=== PATIENT | female | born 1935 | race Caucasian/White ===

== ENCOUNTER 2017-09-07 19:34 | Inpatient (IN) | payer OTHER ==
[2017-09-07 19:44] VITALS: BMI 29.2
--- NOTE | 2017-09-07 20:14 | PDOC ---
History of Present Illness - General History Source: Family (daughter ) Exam Limitations: No Limitations - History of Present Illness Initial Comments: 09/07/17 20:35 The patient is a 82 year old female, accompanied by daughter, with a significant past medical history of HTN and insulin-dependent diabetes who presents to the ED s/p altered mental status since earlier today. Patients daughter reports she visited the patient earlier today and the patient was confused and not acting like herself. As per daughter, the patient is finishing her sentences and is very forgetful. As per daughter, the patient was at her mental baseline yesterday. Daughter states the patients blood sugar level was 582 at 6 pm earlier today, and lowered to 508 an hour later secondary to taking metformin and novolog. Denies headache. Denies chest pain or shortness of breath. Denies nausea, vomiting, or diarrhea. Denies any other symptoms. <Martin Srivastava - Last Filed: 09/08/17 00:41> <Claudine Daily - Last Filed: 09/08/17 02:38> - General Chief Complaint: Altered Mental Status Stated Complaint: SUGAR LEVEL Past History <Martin Srivastava - Last Filed: 09/08/17 00:41> - Past Medical History Anemia: No Asthma: No Cancer: No Cardiac Disorders: No CVA: No COPD: No CHF: No Dementia: No Diabetes: Yes GI Disorders: No Disorders: No HTN: Yes Hypercholesterolemia: No Liver Disease: No Psychiatric Problems: Yes (anxiety) Seizures: No Thyroid Disease: Yes - Surgical History Abdominal Surgery: No Appendectomy: No Cardiac Surgery: No Cholecystectomy: Yes Lung Surgery: No Neurologic Surgery: No Orthopedic Surgery: No - Immunization History Immunization Up to Date: Yes - Suicide/Smoking/Psychosocial Hx Smoking History: Never smoked Have you smoked in the past 12 months: No Information on smoking cessation initiated: No Hx Alcohol Use: No Drug/Substance Use Hx: No Substance Use Type: None <Claudine Daily - Last Filed: 09/08/17 02:38> - Past Medical History Allergies/Adverse Reactions: Allergies Allergy/AdvReac Type Severity Reaction Status Date / Time shellfish derived Allergy Verified 09/07/17 21:25 Home Medications: Ambulatory Orders Aspirin [ASA -] 81 mg PO DAILY 05/22/16 Memantine HCl [Namenda -] 7 mg PO DAILY 05/22/16 Insulin Detemir [Levemir Flextouch] 10 unit SQ HS #1 box 05/25/16 Insulin Detemir [Levemir Flextouch] 20 unit SQ DAILY #1 box 05/25/16 Amoxicillin - [Amoxicillin 875mg Tablet -] 875 mg PO BID 08/17/17 Aspirin [Aspirin EC] 81 mg PO DAILY 08/17/17 Azilsartan Medoxomil [Edarbi] 80 mg PO DAILY 08/17/17 Donepezil HCl [Aricept -] 5 mg PO DAILY 08/17/17 Fluticasone Prop 0.05% Nasal [Flonase -] 1 puff IN BID 08/17/17 Insulin Aspart [Novolog Flexpen] 35 units SCJ DAILY 08/17/17 Linaclotide [Linzess] 145 mcg PO DAILY 08/17/17 Liraglutide [Victoza -] 1.8 mg SQ DAILY@0700 08/17/17 Loratadine [Claritin] 10 mg PO DAILY 08/17/17 Memantine HCl/Donepezil HCl [Namzaric 14 mg-10 mg Capsule] 1 tab PO DAILY Metformin HCl 500 mg PO BID 08/17/17 Review of Systems - Review of Systems Able to Perform ROS?: Yes Comments:: 09/07/17 20:35 CONSTITUTIONAL: No reported: Fever, Chills, Diaphoresis, Generalized Weakness, Malaise, Loss of Appetite HEENT: No reported: Rhinorrhea, Nasal Congestion, Throat Pain, Throat Swelling, Difficulty Swallowing, Mouth Swelling, Ear Pain, Eye Pain, Visual Changes CARDIOVASCULAR: No reported: Chest Pain, Syncope, Palpitations, Irregular Heart Rate, Lightheadedness, Peripheral Edema RESPIRATORY: No reported: Cough, Shortness of Breath, SOB with Exertion, Orthopnea, Wheezing , Stridor, Hemoptysis GASTROINTESTINAL: No reported: Abdominal pain, Abdominal Distension, Nausea, Vomiting, Diarrhea, Constipation, Melena, Hematochezia GENITOURINARY: No reported: Dysuria, Frequency, Urgency, Hesitancy, Flank Pain, Genital Pain MUSCULOSKELETAL: No reported: Myalgia, Arthralgia, Joint Swelling, Back pain, Neck Pain SKIN: No reported: Rash, Itching, Pallor HEMEATOLOGIC/IMMUNOLOGIC: No reported: Easy Bleeding, Easy Bruising, Lymphadenopathy, Frequent infections ENDOCRINE: No reported: Unexplained Weight Gain, Unexplained Weight Loss, Heat Intolerance , Cold Intolerance NEUROLOGIC: + altered mental status No reported: Headache, Focal Weakness, Paresthesias, Vertigo, Lightheadedness, Unsteady Gait, Seizure, Incontinence PSYCHIATRIC: No reported: Anxiety, Depression All Other Systems: Reviewed and Negative <CarolaSheldontom - Last Filed: 09/08/17 00:41> *Physical Exam - Vital Signs Last Vital Signs Temp Pulse Resp BP Pulse Ox 99.5 F 102 H 20 184/106 98 09/07/17 19:38 09/07/17 19:38 09/07/17 19:38 09/07/17 19:38 09/07/17 19:38 - Physical Exam Comments: 09/07/17 20:36 GENERAL: Well developed, well nourished. Awake and alert. No acute distress. HEENT: Normocephalic, atraumatic. PERRLA, EOMI. No conjunctival pallor. Sclera are non- icteric. Moist mucous membranes. Oropharynx is clear. NECK: Supple. Full ROM. No JVD. Carotid pulses 2+ and symmetric, without bruits. No thyromegaly. No lymphadenopathy. CARDIOVASCULAR: Regular rate and rhythm. No murmurs, rubs, or gallops. Distal pulses are 2+ and symmetric. PULMONARY: No evidence of respiratory distress. Lungs clear to auscultation bilaterally. No wheezing, rales or rhonchi. ABDOMINAL: Soft. Non-tender. Non-distended. No rebound or guarding. No organomegaly. Normoactive bowel sounds. MUSCULOSKELETAL Normal range of motion at all joints. No bony deformities or tenderness. No CVA tenderness. EXTREMITIES: No cyanosis. No clubbing. No edema. No calf tenderness. SKIN: Warm and dry. Normal capillary refill. No rashes. No jaundice. NEUROLOGICAL: + Confused, altered mental status, no gross focal neuro deficits, no facial droop, no extremity weakness. Cranial nerves 2-12 intact. No deficits to light touch and temperature in face, upper extremities and lower extremities. No motor deficits in the in face, upper extremities and lower extremities. Normoreflexic in the upper and lower extremities. Normal speech. Toes are down-going bilaterally. Gait is normal without ataxia. PSYCHIATRIC: Cooperative. Good eye contact. Appropriate mood and affect. <Martin Srivastava - Last Filed: 09/08/17 00:41> - Vital Signs Last Vital Signs Temp Pulse Resp BP Pulse Ox 99.5 F 102 H 20 184/106 98 09/07/17 19:38 09/07/17 19:38 09/07/17 19:38 09/07/17 19:38 09/07/17 19:38 <Claudine Daily - Last Filed: 09/08/17 02:38> ED Treatment Course - LABORATORY CBC & Chemistry Diagram: 09/07/17 20:20 09/07/17 20:20 - ADDITIONAL ORDERS Additional order review: 09/07/17 20:20 RBC 4.32 MCV 84.0 MCHC 35.0 RDW 13.7 MPV 7.5 Neutrophils % 59.8 D Lymphocytes % 32.6 D Monocytes % 6.3 Eosinophils % 0.7 D Basophils % 0.6 - RADIOLOGY Radiograph Interpretation: 09/08/17 00:43 EXAM: CT HEAD WITHOUT CONTRAST IMPRESSION: No acute brain parenchymal abnormality. No hemorrhage, mass or acute territorial infarct. Age-related involutional changes and minimal chronic small vessel ischemic changes. Clear visualized paranasal sinuses. Visualized mastoid air cells clear. Reported by: Imaging prosthodontist <Martin Srivastava - Last Filed: 09/08/17 00:41> - LABORATORY CBC & Chemistry Diagram: 09/07/17 20:20 09/07/17 20:20 <Claudine Daily - Last Filed: 09/08/17 02:38> *DC/Admit/Observation/Transfer - Attestations Scribe Attestion: 09/07/17 20:36 Documentation prepared by Martin Srivastava, acting as medical receptionist assistant for Claudine Daily MD <Martin Srivastava - Last Filed: 09/08/17 00:41> - Discharge Dispostion Admit: Yes <Claudine Daily - Last Filed: 09/08/17 02:38> Diagnosis at time of Disposition: Hyponatremia HTN (hypertension) Qualifiers: Hypertension type: essential hypertension Qualified Code(s): I10 - Essential ( primary) hypertension TIA (transient ischemic attack) Qualifiers: Transient cerebral ischemia type: unspecified Qualified Code(s): G45.9 - Transient cerebral ischemic attack, unspecified Uncontrolled diabetes mellitus Qualifiers: Diabetes mellitus type: type 1 Diabetes mellitus complication status: with hyperglycemia Qualified Code(s): E10.65 - Type 1 diabetes mellitus with hyperglycemia NIH Stroke Scale - Last Known Well Date/Time & Onset Date Last Known Well: 09/07/17 Time Last Known Well: 12:30 - Initial Evaluation Level of consciousness: Alert Ask patient the month and their age: Both incorrect Ask patient to open & close eyes; make fist and let go: Obeys one correctly Best gaze (horizontal eye movement): Normal Visual field testing: No visual field loss Facial paresis (Show teeth/raise eyebrows/close eyes tight): Normal symmetrical movement Motor Function: Left Arm: Normal Motor Function: Right Arm: Normal (extends arm 90 (or 45) degrees for 10 seconds without drift Motor Function: Left Leg: Normal (extends leg 30 degrees for 5 seconds without drift) Motor Function: Right Leg: Normal (extends leg 30 degrees for 5 seconds without drift) Limb Ataxia: No ataxia Sensory(Use pinprick test arms,legs,trunk,face/side to side): Normal Best language (Describe picture, name items, read sentences): No Aphasia Dysarthria (read several words): Normal articulation Extinction and Inattention: No abnormality - Total Score NIH Stroke Scale Score: 3 <Claudine Daily - Last Filed: 09/08/17 02:38> tPA Exclusion checklist 3-4.5h - Time Elapsed Date last known well: 09/06/17 Time last known well: 12:00 Elaspsed time: 1 Day(s) and 14 Hour(s) and 37 Minutes - Thrombolytic Therapy Candidate Is patient eligible for thrombolytic therapy: No - Exclusion Criteria 3-4.5 hr SBP greater than 185 or DBP greater than 110mmHg despite tx: No Recent IC/spinal surgery,head trauma or stroke<3mos.: No Hx IC hemorrhage, IC neoplasm, AV malformation or aneurysm: No Active internal bleeding: No Blding diathesis(low plt ct, inc PTT,INR>1.7 or use of NOAC): No Symptoms suggest subarachnoid hemorrhage: No CT demonstrates multilobar infarct(>1/3 cerebral hemiphere): No Arterial puncture at noncompressible site in previous 7 days: No Blood glucose concentration less than 50mg/dL (2.7mmol/L): No - Relative Exclusion Criteria 3-4.5 hr Life expectancy <1 yr or severe co-morbid illness: No : No Patient/family refused: No Rapid improvement: No Stroke severity too mild: Yes Recent acute IA (w/in previous 3 months): No Seizure at onset with postictal residual neuro impairments: No Major surgery or serious trauma w/in previous 14 days: No Recent GI or hemorrhage (w/in previous 21 days): No - Add'l Relative Exclusion 3-4.5 hr Age > 80: Yes Hx of both diabetes AND prior ischemic stroke: No Taking an oral anticoagulant regardless of INR: No NIHSS >25: No - Ineligibility reason(s) Reasons No tPA given: Outside of window - delayed arrival (pt NIHSS is only 3, pt has dementia and the last time she was at baseline> 24 hours ago) <Claudine Daily - Last Filed: 09/08/17 02:38>
[2017-09-07] MEDS ORDERED: SODIUM CHLORIDE 0.9% 1000 ML INFUS.BAG IV PRN (20:20)
[2017-09-07 20:29] LABS: BASOPHIL 0.6 % (0-2.0); EOSINOPHIL 0.7 % (0-4.5); MCH 29.4 pg (25.7-33.7); MEAN PLT VOLUME 7.5 fl (7.5-11.1); NEUTROPHILS 59.8 % (42.8-82.8); PLATELET COUNT 272 K/MM3 (134-434); RDW 13.7 % (11.6-15.6)
[2017-09-07 20:37] LABS: INR 0.97 (0.82-1.09)
[2017-09-07 20:39] LABS: ACTIVATED PTT 27.7 SECONDS (26.9-34.4)
[2017-09-07 20:49] LABS: ALBUMIN 3.4 g/dl (3.4-5.0); ANION GAP 12 (8-16); BILIRUBIN,TOTAL 0.3 mg/dL (0.2-1.0); CO2 23 mmol/L (21-32); CREATININE 1.1 mg/dL (0.55-1.02); SGOT/AST 20 U/L (15-37); SGPT/ALT 38 U/L (12-78); TOT PROT 8.2 g/dl (6.4-8.2)
[2017-09-07 20:51] LABS: ALK PHOS 108 U/L (45-117); CPK 169 IU/L (26-192); TROPONIN I 0.03 ng/ml (0.00-0.05)
[2017-09-07 20:58] LABS: GLUCOSE,RANDOM 433 mg/dL (74-106)
[2017-09-07 21:02] LABS: VENOUS BLOOD GAS HCO3 25.5 meq/L (19-25); VENOUS PH 7.43 (7.32-7.42)
[2017-09-07 21:04] LABS: URINE APPEARANCE CLEAR; URINE BILIRUBIN NEGATIVE (NEGATIVE); URINE BLOOD 1+ (NEGATIVE); URINE COLOR STRAW; URINE GLUCOSE (UA) 3+ (NEGATIVE); URINE KETONE NEGATIVE (NEGATIVE); URINE NITRITE NEGATIVE (NEGATIVE); URINE UROBILINOGEN NEGATIVE mg/dL (0.2-1.0)
[2017-09-07 21:06] LABS: URINE PROTEIN 2+ (NEGATIVE)
[2017-09-07 21:08] LABS: URINE RBC <1 /hpf (0-3); URINE WBC 1 /hpf (3-5)
[2017-09-07] MEDS ORDERED: ACETAMINOPHEN 325 MG TABLET (FP) PO ONE (21:11)
[2017-09-07] MEDS ORDERED: ACETAMINOPHEN 325 MG TABLET (FP) ONE (21:12)
[2017-09-07] MEDS: SODIUM CHLORIDE 1,000 ML IV SCH (21:44)
[2017-09-07 22:28] LABS: URINE LEUK ESTERASE Negative (NEGATIVE)
[2017-09-08] MEDS ORDERED: amLODIPine BESYLATE 10 MG TABLET (FP) PO ONE (00:10)
[2017-09-08] MEDS ORDERED: amLODIPine BESYLATE 5 MG TABLET (FP) ONE (00:17)
[2017-09-08] MEDS ORDERED: INSULIN REGULAR HUMAN 100 UNITS/ML *VIAL SQ STA (00:57)
[2017-09-08] MEDS ORDERED: INSULIN REGULAR HUMAN 100 UNITS/ML *VIAL ONE (01:31)
[2017-09-08] MEDS ORDERED: ZOLPIDEM TARTRATE 5 MG TABLET PO ONE (02:09)
[2017-09-08] MEDS ORDERED: ZOLPIDEM TARTRATE 5 MG TABLET ONE (02:25)
[2017-09-08] MEDS ORDERED: ASPIRIN 81 MG CHEWABLE TABLETS PO ONE (02:39)
[2017-09-08] MEDS ORDERED: ASPIRIN 81 MG CHEWABLE TABLETS ONE (02:57)
[2017-09-08] MEDS ORDERED: ASPIRIN COATED 81 MG TABLET.EC ONE (02:59)
[2017-09-08] MEDS ORDERED: SODIUM CHLORIDE 1,000 ML IV SCH (03:00)
[2017-09-08] MEDS ORDERED: INSULIN DETEMIR 100 UNITS/ML MDV SQ SCH (07:00)
[2017-09-08] MEDS ORDERED: INSULIN (NOVOLOG) ASPART 100 UNITS/ML 10ML VIAL SQ SCH (07:00)
[2017-09-08] MEDS ORDERED: INSULIN (NOVOLOG) ASPART 100 UNITS/ML 10ML VIAL ONE (07:07)
[2017-09-08] MEDS ORDERED: INSULIN DETEMIR 100 UNITS/ML MDV SQ ONE (07:07)
[2017-09-08] MEDS: LIRAGLUTIDE 0.6 MG/0.1 ML PEN.INJCTR SQ SCH (08:17)
--- NOTE | 2017-09-08 09:59 | EKG ---
Test Reason : Blood Pressure : / mmHG Vent. Rate : 093 BPM Atrial Rate : 093 BPM P-R Int : 164 ms QRS Dur : 086 ms QT Int : 358 ms P-R-T Axes : 052 -12 052 degrees QTc Int : 445 ms NORMAL SINUS RHYTHM VOLTAGE CRITERIA FOR LEFT VENTRICULAR HYPERTROPHY NONSPECIFIC T WAVE ABNORMALITY ABNORMAL ECG WHEN COMPARED WITH ECG OF 17-AUG-2017 12:25, NO SIGNIFICANT CHANGE WAS FOUND Confirmed by ТАТЬЯНА MAURO MD ([id number]) on 09/08/2017 9:59:05 AM Referred By: Confirmed By:ТАТЬЯНА MAURO MD
[2017-09-08] MEDS ORDERED: PATIENT'S OWN MEDICATION (NON-FORMULARY) (Linaclotide [Linzess] 145 MCG) PO SCH (10:00)
[2017-09-08] MEDS ORDERED: PATIENT'S OWN MEDICATION (NON-FORMULARY) (Azilsartan Medoxomil [Edarbi] 80 MG) PO SCH (10:00)
[2017-09-08] MEDS ORDERED: NAMENDA 7 MG PO SCH (10:00)
[2017-09-08] MEDS: HEPARIN NA (PORCINE) 5,000 UNITS/ML 1ML VIAL SQ SCH ×2 (10:56→21:49)
[2017-09-08] MEDS: DONEPEZIL HCL 5 MG TABLET (FP) PO SCH (10:56)
[2017-09-08] MEDS: ASPIRIN COATED 81 MG TABLET.EC PO SCH (10:56)
[2017-09-08] MEDS: LORATADINE 10 MG TABLET PO SCH (10:56)
--- NOTE | 2017-09-08 12:11 | CONSULT ---
Consult - text type - Consultation Consultation Note: Neurology History of Present Illness The patient is a 82 year old female, with a significant past medical history of HTN and insulin-dependent diabetes who presents to the ED s/p altered mental status. Patients daughter reports she visited the patient the day of admission and the patient was confused and not acting like herself. As per daughter, the patient is finishing her sentences and is very forgetful. Daughter states the patients blood sugar level was 582 and lowered to 508 an hour later secondary to taking metformin and novolog. Denies headache. Denies chest pain or shortness of breath. Denies nausea, vomiting, or diarrhea. Denies any other symptoms. CT head completed and did not show acute changes. Unsure of patient' s baseline cognitive ability, but she was comfortable in the emergency room and interactive. She was calm and cooperative. - General Chief Complaint: Altered Mental Status Stated Complaint: SUGAR LEVEL Past History - Past Medical History Anemia: No Asthma: No Cancer: No Cardiac Disorders: No CVA: No COPD: No CHF: No Dementia: No Diabetes: Yes GI Disorders: No Disorders: No HTN: Yes Hypercholesterolemia: No Liver Disease: No Psychiatric Problems: Yes (anxiety) Seizures: No Thyroid Disease: Yes - Surgical History Abdominal Surgery: No Appendectomy: No Cardiac Surgery: No Cholecystectomy: Yes Lung Surgery: No Neurologic Surgery: No Orthopedic Surgery: No - Immunization History Immunization Up to Date: Yes - Suicide/Smoking/Psychosocial Hx Smoking History: Never smoked Have you smoked in the past 12 months: No Information on smoking cessation initiated: No Hx Alcohol Use: No Drug/Substance Use Hx: No Substance Use Type: None - Past Medical History Allergies/Adverse Reactions: Allergies Allergy/AdvReac Type Severity Reaction Status Date / Time shellfish derived Allergy Verified 09/07/17 21:25 Home Medications: Ambulatory Orders Aspirin [ASA -] 81 mg PO DAILY 05/22/16 Memantine HCl [Namenda -] 7 mg PO DAILY 05/22/16 Insulin Detemir [Levemir Flextouch] 10 unit SQ HS #1 box 05/25/16 Insulin Detemir [Levemir Flextouch] 20 unit SQ DAILY #1 box 05/25/16 Amoxicillin - [Amoxicillin 875mg Tablet -] 875 mg PO BID 08/17/17 Aspirin [Aspirin EC] 81 mg PO DAILY 08/17/17 Azilsartan Medoxomil [Edarbi] 80 mg PO DAILY 08/17/17 Donepezil HCl [Aricept -] 5 mg PO DAILY 08/17/17 Fluticasone Prop 0.05% Nasal [Flonase -] 1 puff IN BID 08/17/17 Insulin Aspart [Novolog Flexpen] 35 units SCJ DAILY 08/17/17 Linaclotide [Linzess] 145 mcg PO DAILY 08/17/17 Liraglutide [Victoza -] 1.8 mg SQ DAILY@0700 08/17/17 Loratadine [Claritin] 10 mg PO DAILY 08/17/17 Memantine HCl/Donepezil HCl [Namzaric 14 mg-10 mg Capsule] 1 tab PO DAILY Metformin HCl 500 mg PO BID 08/17/17 Review of Systems CONSTITUTIONAL: No reported: Fever, Chills, Diaphoresis, Generalized Weakness, Malaise, Loss of Appetite HEENT: No reported: Rhinorrhea, Nasal Congestion, Throat Pain, Throat Swelling, Difficulty Swallowing, Mouth Swelling, Ear Pain, Eye Pain, Visual Changes CARDIOVASCULAR: No reported: Chest Pain, Syncope, Palpitations, Irregular Heart Rate, Lightheadedness, Peripheral Edema RESPIRATORY: No reported: Cough, Shortness of Breath, SOB with Exertion, Orthopnea, Wheezing , Stridor, Hemoptysis GASTROINTESTINAL: No reported: Abdominal pain, Abdominal Distension, Nausea, Vomiting, Diarrhea, Constipation, Melena, Hematochezia GENITOURINARY: No reported: Dysuria, Frequency, Urgency, Hesitancy, Flank Pain, Genital Pain MUSCULOSKELETAL: No reported: Myalgia, Arthralgia, Joint Swelling, Back pain, Neck Pain SKIN: No reported: Rash, Itching, Pallor HEMEATOLOGIC/IMMUNOLOGIC: No reported: Easy Bleeding, Easy Bruising, Lymphadenopathy, Frequent infections ENDOCRINE: No reported: Unexplained Weight Gain, Unexplained Weight Loss, Heat Intolerance , Cold Intolerance NEUROLOGIC: + altered mental status No reported: Headache, Focal Weakness, Paresthesias, Vertigo, Lightheadedness, Unsteady Gait, Seizure, Incontinence PSYCHIATRIC: No reported: Anxiety, Depression *Physical Exam Vital Signs Temperature 98.6 F 09/08/17 06:56 Pulse Rate 80 09/08/17 10:57 Respiratory Rate 16 09/08/17 10:57 Blood Pressure 158/85 09/08/17 10:57 O2 Sat by Pulse Oximetry (%) 100 09/08/17 11:10 GENERAL: Well developed, well nourished. Awake and alert. No acute distress. HEENT: Normocephalic, atraumatic. PERRLA, EOMI. No conjunctival pallor. Sclera are non- icteric. Moist mucous membranes. Oropharynx is clear. NECK: Supple. Full ROM. No JVD. Carotid pulses 2+ and symmetric, without bruits. No thyromegaly. No lymphadenopathy. CARDIOVASCULAR: Regular rate and rhythm. No murmurs, rubs, or gallops. Distal pulses are 2+ and symmetric. PULMONARY: No evidence of respiratory distress. Lungs clear to auscultation bilaterally. No wheezing, rales or rhonchi. ABDOMINAL: Soft. Non-tender. Non-distended. No rebound or guarding. No organomegaly. Normoactive bowel sounds. MUSCULOSKELETAL Normal range of motion at all joints. No bony deformities or tenderness. No CVA tenderness. EXTREMITIES: No cyanosis. No clubbing. No edema. No calf tenderness. SKIN: Warm and dry. Normal capillary refill. No rashes. No jaundice. NEUROLOGICAL: + Confused, altered mental status, no gross focal neuro deficits, no facial droop, no extremity weakness. Cranial nerves 2-12 intact. No deficits to light touch and temperature in face, upper extremities and lower extremities. No motor deficits in the in face, upper extremities and lower extremities. Normoreflexic in the upper and lower extremities. Normal speech. Toes are down-going bilaterally. Gait is normal without ataxia. PSYCHIATRIC: Cooperative. Good eye contact. Appropriate mood and affect. CBCD WBC 8.0 K/mm3 (4.0-10.0) D 09/07/17 20:20 RBC 4.32 M/mm3 (3.60-5.2) 09/07/17 20:20 Hgb 12.7 GM/dL (10.7-15.3) 09/07/17 20:20 Hct 36.3 % (32.4-45.2) 09/07/17 20:20 MCV 84.0 fl (80-96) 09/07/17 20:20 MCHC 35.0 g/dl (32.0-36.0) 09/07/17 20:20 RDW 13.7 % (11.6-15.6) 09/07/17 20:20 Plt Count 272 K/MM3 (134-434) 09/07/17 20:20 MPV 7.5 fl (7.5-11.1) 09/07/17 20:20 CMP Sodium 127 mmol/L (136-145) L 09/07/17 20:20 Potassium 4.3 mmol/L (3.5-5.1) 09/07/17 20:20 Chloride 92 mmol/L (98-107) L 09/07/17 20:20 Carbon Dioxide 23 mmol/L (21-32) D 09/07/17 20:20 Anion Gap 12 (8-16) 09/07/17 20:20 BUN 25 mg/dL (7-18) H 09/07/17 20:20 Creatinine 1.1 mg/dL (0.55-1.02) H 09/07/17 20:20 Creat Clearance w eGFR 47.67 (>60) 09/07/17 20:20 Calcium 9.0 mg/dL (8.5-10.1) 09/07/17 20:20 Total Bilirubin 0.3 mg/dL (0.2-1.0) D 09/07/17 20:20 AST 20 U/L (15-37) D 09/07/17 20:20 ALT 38 U/L (12-78) 09/07/17 20:20 Alkaline Phosphatase 108 U/L (45-117) 09/07/17 20:20 Total Protein 8.2 g/dl (6.4-8.2) 09/07/17 20:20 Albumin 3.4 g/dl (3.4-5.0) 09/07/17 20:20 - RADIOLOGY Radiograph Interpretation: EXAM: CT HEAD WITHOUT CONTRAST IMPRESSION: No acute brain parenchymal abnormality. No hemorrhage, mass or acute territorial infarct. Age-related involutional changes and minimal chronic small vessel ischemic changes. Clear visualized paranasal sinuses. Visualized mastoid air cells clear. Reported by: Imaging production stage manager Plan: 82 year old female, with a significant past medical history of HTN and insulin- dependent diabetes who presents to the ED s/p altered mental status. Patients daughter reports she visited the patient the day of admission and the patient was confused and not acting like herself. As per daughter, the patient is finishing her sentences and is very forgetful. Daughter states the patients blood sugar level was 582 and lowered to 508 an hour later secondary to taking metformin and novolog. Denies headache. Denies chest pain or shortness of breath. Denies nausea, vomiting, or diarrhea. Denies any other symptoms. CT head completed and did not show acute changes. Unsure of patient's baseline cognitive ability, but she was comfortable in the emergency room and interactive. She was calm and cooperative. possibly toxic metabolic encephalopathy, monitor electrolytes. Continue IV/by mouth hydration. Close monitoring of glucose and treatment of hyperglycemia. unclear if patient was noncompliant of her glucose medications. Can continue Namziric and dementia medications as well. Frequent reorientation suggested. Blood pressure control goal range less than 140/90. Follow-up cardiology recommendations.
[2017-09-08] MEDS: SODIUM CHLORIDE 1,000 ML IV SCH ×2 (16:28→21:39)
--- NOTE | 2017-09-08 17:02 | HP ---
Admitting History and Physical - Primary Care Physician PCP: Agueda Lee - Admission Chief Complaint: ALTERED MENTAL STATUS CHANGE RULE OUT CVA/HYPERGLYCEMIA History of Present Illness: The patient is a 82 year old female, accompanied by daughter, with a significant past medical history of HTN and insulin-dependent diabetes who presents to the ED s/p altered mental status since earlier today. Patients daughter reports she visited the patient earlier today and the patient was confused and not acting like herself. As per daughter, the patient is finishing her sentences and is very forgetful. As per daughter, the patient was at her mental baseline yesterday. Daughter states the patients blood sugar level was 582 at 6 pm earlier today, and lowered to 508 an hour later secondary to taking metformin and novolog. Denies headache. Denies chest pain or shortness of breath. Denies nausea, vomiting, or diarrhea. Denies any other symptoms. 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, Other (cataract) Cardiovascular: Yes: HTN Gastrointestinal: Yes: GERD Psych: Yes: Anxiety Endocrine: Yes: Diabetes Mellitus - Smoking History Smoking history: Never smoked Have you smoked in the past 12 months: No - Alcohol/Substance Use Hx Alcohol Use: No History of Substance Use: reports: None Home Medications - Allergies Allergies/Adverse Reactions: Allergies Allergy/AdvReac Type Severity Reaction Status Date / Time shellfish derived Allergy Verified 09/07/17 21:25 - Home Medications Home Medications: Ambulatory Orders Aspirin [ASA -] 81 mg PO DAILY 05/22/16 Memantine HCl [Namenda -] 7 mg PO DAILY 05/22/16 Insulin Detemir [Levemir Flextouch] 10 unit SQ HS #1 box 05/25/16 Insulin Detemir [Levemir Flextouch] 20 unit SQ DAILY #1 box 05/25/16 Amoxicillin - [Amoxicillin 875mg Tablet -] 875 mg PO BID 08/17/17 Aspirin [Aspirin EC] 81 mg PO DAILY 08/17/17 Azilsartan Medoxomil [Edarbi] 80 mg PO DAILY 08/17/17 Donepezil HCl [Aricept -] 5 mg PO DAILY 08/17/17 Fluticasone Prop 0.05% Nasal [Flonase -] 1 puff IN BID 08/17/17 Insulin Aspart [Novolog Flexpen] 35 units SCJ DAILY 08/17/17 Linaclotide [Linzess] 145 mcg PO DAILY 08/17/17 Liraglutide [Victoza -] 1.8 mg SQ DAILY@0700 08/17/17 Loratadine [Claritin] 10 mg PO DAILY 08/17/17 Memantine HCl/Donepezil HCl [Namzaric 14 mg-10 mg Capsule] 1 tab PO DAILY Metformin HCl 500 mg PO BID 08/17/17 Review of Systems - Review of Systems Constitutional: reports: Loss of Appetite, Weakness Eyes: reports: No Symptoms HENT: reports: No Symptoms (TWITCHING), Other Neck: reports: No Symptoms Cardiovascular: reports: No Symptoms Respiratory: reports: No Symptoms Gastrointestinal: reports: No Symptoms Genitourinary: reports: No Symptoms Musculoskeletal: reports: Muscle Weakness Integumentary: reports: No Symptoms Neurological: reports: Confusion, Parasthesia, Pre-Existing Deficit, Unsteady Gait, Other Endocrine: reports: No Symptoms Hematology/Lymphatic: reports: No Symptoms Psychiatric: reports: Anxiety, Other Physical Examination Vital Signs: Vital Signs Temperature 99.1 F 09/08/17 13:35 Pulse Rate 75 09/08/17 13:56 Respiratory Rate 17 09/08/17 13:56 Blood Pressure 150/60 09/08/17 13:56 O2 Sat by Pulse Oximetry (%) 99 09/08/17 13:56 Constitutional: Yes: Mild Distress Eyes: Yes: WNL HENT: Yes: Other (FACIAL TWITCH) Neck: Yes: WNL Cardiovascular: Yes: WNL Respiratory: Yes: WNL Gastrointestinal: Yes: WNL Renal/: Yes: WNL Musculoskeletal: Yes: Muscle Weakness Extremities: Yes: WNL Edema: No Peripheral Pulses WNL: Yes Integumentary: Yes: WNL Wound/Incision: Yes: Other Neurological: Yes: Facial Droop, Pre-Existing Deficit, Weakness ...Motor Strength: LLE, RLE Psychiatric: Yes: Other Imaging - Results Cat Scan: Report Reviewed Problem List - Problems (1) Anxiety Code(s): F41.9 - ANXIETY DISORDER, UNSPECIFIED (2) HTN (hypertension) Code(s): I10 - ESSENTIAL (PRIMARY) HYPERTENSION Qualifiers: Hypertension type: essential hypertension Qualified Code(s): I10 - Essential (primary) hypertension; I10 - Essential (primary) hypertension; I10 - Essential (primary) hypertension (3) Hyperglycemia Code(s): R73.9 - HYPERGLYCEMIA, UNSPECIFIED (4) Syncope Code(s): R55 - SYNCOPE AND COLLAPSE (5) TIA (transient ischemic attack) Code(s): G45.9 - TRANSIENT CEREBRAL ISCHEMIC ATTACK, UNSPECIFIED Qualifiers: Transient cerebral ischemia type: unspecified Qualified Code(s): G45.9 - Transient cerebral ischemic attack, unspecified; G45.9 - Transient cerebral ischemic attack, unspecified; G45.9 - Transient cerebral ischemic attack, unspecified (6) Uncontrolled diabetes mellitus Code(s): E11.65 - TYPE 2 DIABETES MELLITUS WITH HYPERGLYCEMIA Qualifiers: Diabetes mellitus type: type 1 Diabetes mellitus complication status: with hyperglycemia Qualified Code(s): E10.65 - Type 1 diabetes mellitus with hyperglycemia; E10.65 - Type 1 diabetes mellitus with hyperglycemia; E10.65 - Type 1 diabetes mellitus with hyperglycemia; E10.65 - Type 1 diabetes mellitus with hyperglycemia (7) Diabetes mellitus Code(s): E11.9 - TYPE 2 DIABETES MELLITUS WITHOUT COMPLICATIONS (8) Lightheadedness Code(s): R42 - DIZZINESS AND GIDDINESS Assessment/Plan MRI BRAIN PENDING TARDIVE DEYSKINESIA PSYCH AND NEURO EVAL ENDOCRINE CONSULT SSI ADA BGM AC/HS OOB TO CHAIR PT [facility] FOR [facility]
[2017-09-08 18:41] LABS: ANION GAP 7 (8-16); CALCIUM 8.8 mg/dL (8.5-10.1); CO2 30 mmol/L (21-32); CREATININE 0.8 mg/dL (0.55-1.02); GLUCOSE,RANDOM 143 mg/dL (74-106)
[2017-09-08] MEDS ORDERED: hydrOXYzine HCL 25 MG TABLET (FP) PO ONE (21:15)
[2017-09-08] MEDS ORDERED: VALSARTAN 160 MG TABLET (UD) PO ONE (21:15)
[2017-09-08] MEDS: INSULIN DETEMIR 100 UNITS/ML MDV SQ SCH (21:42)
--- NOTE | 2017-09-09 00:06 | CONSULT ---
Consult Consult Specialty:: endocrine Referred by:: dr mercy byrd Reason for Consultation:: diabetes mellitus - History of Present Illness Chief Complaint: weakness high sugar History of Present Illness: 82 year old female, with a significant past medical history of HTN and insulin- dependent diabetes who presents to the ED s/p altered mental status. Patients daughter reports she visited the patient the day of admission and the patient was confused and not acting like herself. As per daughter, the patient is finishing her sentences and is very forgetful. 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, Other (cataract) Cardio/Vascular: Yes: HTN Gastrointestinal: Yes: GERD Psych: Yes: Anxiety Endocrine: Yes: Diabetes Mellitus - Alcohol/Substance Use Hx Alcohol Use: No History of Substance Use: reports: None - Smoking History Smoking history: Never smoked Have you smoked in the past 12 months: No - Social History Usual Living Arrangement: Alone Home Medications - Allergies Allergies/Adverse Reactions: Allergies Allergy/AdvReac Type Severity Reaction Status Date / Time shellfish derived Allergy Verified 09/07/17 21:25 - Home Medications Home Medications: Ambulatory Orders Aspirin [ASA -] 81 mg PO DAILY 05/22/16 Memantine HCl [Namenda -] 7 mg PO DAILY 05/22/16 Insulin Detemir [Levemir Flextouch] 10 unit SQ HS #1 box 05/25/16 Insulin Detemir [Levemir Flextouch] 20 unit SQ DAILY #1 box 05/25/16 Amoxicillin - [Amoxicillin 875mg Tablet -] 875 mg PO BID 08/17/17 Aspirin [Aspirin EC] 81 mg PO DAILY 08/17/17 Azilsartan Medoxomil [Edarbi] 80 mg PO DAILY 08/17/17 Donepezil HCl [Aricept -] 5 mg PO DAILY 08/17/17 Fluticasone Prop 0.05% Nasal [Flonase -] 1 puff IN BID 08/17/17 Insulin Aspart [Novolog Flexpen] 35 units SCJ DAILY 08/17/17 Linaclotide [Linzess] 145 mcg PO DAILY 08/17/17 Liraglutide [Victoza -] 1.8 mg SQ DAILY@0700 08/17/17 Loratadine [Claritin] 10 mg PO DAILY 08/17/17 Memantine HCl/Donepezil HCl [Namzaric 14 mg-10 mg Capsule] 1 tab PO DAILY Metformin HCl 500 mg PO BID 08/17/17 Review of Systems - Review of Systems Constitutional: reports: Lethargy Eyes: reports: Blurred Vision HENT: reports: No Symptoms Neck: reports: No Symptoms Cardiovascular: reports: No Symptoms Respiratory: reports: No Symptoms Gastrointestinal: reports: No Symptoms Neurological: reports: Weakness Endocrine: reports: No Symptoms Physical Exam Vital Signs: Vital Signs Temperature 98.5 F 09/08/17 21:00 Pulse Rate 84 09/08/17 21:00 Respiratory Rate 18 09/08/17 21:00 Blood Pressure 182/98 09/08/17 21:00 O2 Sat by Pulse Oximetry (%) 97 09/08/17 21:00 Constitutional: Yes: Anxious Eyes: Yes: EOM Intact HENT: Yes: Normocephalic Neck: Yes: Trachea Midline Cardiovascular: Yes: Regular Rate and Rhythm Respiratory: Yes: CTA Bilaterally Gastrointestinal: Yes: Normal Bowel Sounds ...Rectal Exam: Yes: Deferred Renal/: Yes: WNL Breast(s): Yes: WNL Musculoskeletal: Yes: WNL Extremities: Yes: WNL Labs: CBC, BMP 09/08/17 17:50 Problem List - Problems (1) HTN (hypertension) Code(s): I10 - ESSENTIAL (PRIMARY) HYPERTENSION Qualifiers: Hypertension type: essential hypertension Qualified Code(s): I10 - Essential (primary) hypertension; I10 - Essential (primary) hypertension; I10 - Essential (primary) hypertension (2) Hyponatremia Code(s): E87.1 - HYPO-OSMOLALITY AND HYPONATREMIA (3) TIA (transient ischemic attack) Code(s): G45.9 - TRANSIENT CEREBRAL ISCHEMIC ATTACK, UNSPECIFIED Qualifiers: Transient cerebral ischemia type: unspecified Qualified Code(s): G45.9 - Transient cerebral ischemic attack, unspecified; G45.9 - Transient cerebral ischemic attack, unspecified; G45.9 - Transient cerebral ischemic attack, unspecified Assessment/Plan Current Active Problems Anxiety (Acute) HTN (hypertension) (Acute) Hyperglycemia (Acute) Hyponatremia (Acute) Syncope (Acute) TIA (transient ischemic attack) (Acute) Thyroid disease (Acute) Uncontrolled diabetes mellitus (Acute) Abnormal Lab Results 09/08/17 17:50 Sodium 133 L Chloride 96 L Anion Gap 7 L Random Glucose 143 H D Laboratory Results - last 24 hr 09/07/17 09/08/17 09/08/17 20:08 00:55 02:30 Sodium Potassium Chloride Carbon Dioxide Anion Gap BUN Creatinine POC Glucometer > 400 > 400 Random Glucose Lactic Acid 1.0 Calcium 09/08/17 09/08/17 09/08/17 06:00 14:49 17:41 Sodium Potassium Chloride Carbon Dioxide Anion Gap BUN Creatinine POC Glucometer [id number] 153 Random Glucose Lactic Acid 1.0 Calcium 09/08/17 09/08/17 17:50 20:29 Sodium 133 L Potassium 3.8 Chloride 96 L Carbon Dioxide 30 D Anion Gap 7 L BUN 14 D Creatinine 0.8 D POC Glucometer 190 Random Glucose 143 H D Lactic Acid Calcium 8.8 plan: bgm novolog scale coverage levemir 20units am levemir 10 u hs chk hba1c
[2017-09-09] MEDS: INSULIN SLIDING SCALE (NOVOLOG) 1 VIAL SQ SCH ×4 (06:28→22:19)
[2017-09-09] MEDS: INSULIN DETEMIR 100 UNITS/ML MDV SQ SCH ×2 (06:29→22:18)
[2017-09-09] MEDS: LIRAGLUTIDE 0.6 MG/0.1 ML PEN.INJCTR SQ SCH (06:29)
[2017-09-09 07:20] LABS: MCH 28.2 pg (25.7-33.7); MCHC 33.7 g/dl (32.0-36.0); MEAN CELL VOLUME 83.7 fl (80-96); MEAN PLT VOLUME 7.7 fl (7.5-11.1); PLATELET COUNT 264 K/MM3 (134-434); RDW 14.1 % (11.6-15.6); WHITE BLOOD COUNT 6.3 K/mm3 (4.0-10.0)
[2017-09-09 08:01] LABS: ALBUMIN 3.1 g/dl (3.4-5.0); ANION GAP 7 (8-16); CALCIUM 8.5 mg/dL (8.5-10.1); CO2 29 mmol/L (21-32)
[2017-09-09 08:07] LABS: ALK PHOS 93 U/L (45-117); BILIRUBIN,TOTAL 0.5 mg/dL (0.2-1.0); CHOLESTEROL 253 mg/dL (50-200); CREATININE 0.9 mg/dL (0.55-1.02); GLUCOSE,RANDOM 229 mg/dL (74-106); SGOT/AST 28 U/L (15-37); SGPT/ALT 32 U/L (12-78); TOT PROT 7.7 g/dl (6.4-8.2)
--- NOTE | 2017-09-09 09:50 | PN ---
Progress Note (short form) - Note Progress Note: Neurology History of Present Illness The patient is a 82 year old female, with a significant past medical history of HTN and insulin-dependent diabetes who presents to the ED s/p altered mental status. Patients daughter reports she visited the patient the day of admission and the patient was confused and not acting like herself. As per daughter, the patient is finishing her sentences and is very forgetful. Daughter states the patients blood sugar level was 582 and lowered to 508 an hour later secondary to taking metformin and novolog. CT head completed and did not show acute changes. 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 Not TPA candidate as she is out of window. Given distribution, there is concern for embolic phenomenon, though size could also indicate hypertensive. Echo, CD to be checked. When asked if she takes ASA , she reports she takes it occasionally and does not seem to be daily compliant. Instructed her it would be necessary to take daily for CVA prevention. Endo notes also reviewed and Diabetes management ongoing. Active Medications Aspirin (Ecotrin -) 81 mg PO DAILY [facility] Last Admin: 09/08/17 10:56 Dose: 81 mg Donepezil HCl (Aricept -) 5 mg PO DAILY [facility] Last Admin: 09/08/17 10:56 Dose: 5 mg Heparin Sodium (Porcine) (Heparin -) 5,000 unit SQ BID [facility] Last Admin: 09/08/17 21:49 Dose: 5,000 unit Insulin Aspart (Novolog Vial Sliding Scale -) 1 vial SQ ACHS [facility] PRN Reason: Protocol Last Admin: 09/09/17 06:28 Dose: 7 units Insulin Detemir (Levemir Vial) 10 units SQ HS [facility] Last Admin: 09/08/17 21:42 Dose: 10 units Insulin Detemir (Levemir Vial) 35 units SQ ACBK [facility] Last Admin: 09/09/17 06:29 Dose: 35 units Liraglutide (Victoza -) 1.8 mg SQ DAILY@0700 [facility] Last Admin: 09/09/17 06:29 Dose: 1.8 mg Loratadine (Claritin -) 10 mg PO DAILY [facility] Last Admin: 09/08/17 10:56 Dose: 10 mg Non-Formulary Medication (Azilsartan Medoxomil [Edarbi]) 80 mg PO DAILY [facility] Non-Formulary Medication (Linaclotide [Linzess]) 145 mcg PO DAILY [facility] Namenda Xr 7 Mg Tablet - Patient Own Med 7 each PO DAILY [facility] *Physical Exam Vital Signs Temperature 98.1 F 09/09/17 06:00 Pulse Rate 89 09/09/17 06:00 Respiratory Rate 18 09/09/17 06:00 Blood Pressure 156/85 09/09/17 06:00 O2 Sat by Pulse Oximetry (%) 97 09/08/17 21:00 GENERAL: Well developed, well nourished. Awake and alert. No acute distress. HEENT: Normocephalic, atraumatic. PERRLA, EOMI. No conjunctival pallor. Sclera are non- icteric. Moist mucous membranes. Oropharynx is clear. NECK: Supple. Full ROM. No JVD. Carotid pulses 2+ and symmetric, without bruits. No thyromegaly. No lymphadenopathy. CARDIOVASCULAR: Regular rate and rhythm. No murmurs, rubs, or gallops. Distal pulses are 2+ and symmetric. PULMONARY: No evidence of respiratory distress. Lungs clear to auscultation bilaterally. No wheezing, rales or rhonchi. ABDOMINAL: Soft. Non-tender. Non-distended. No rebound or guarding. No organomegaly. Normoactive bowel sounds. MUSCULOSKELETAL Normal range of motion at all joints. No bony deformities or tenderness. No CVA tenderness. EXTREMITIES: No cyanosis. No clubbing. No edema. No calf tenderness. SKIN: Warm and dry. Normal capillary refill. No rashes. No jaundice. NEUROLOGICAL: + Confused, altered mental status, no gross focal neuro deficits, no facial droop, no extremity weakness. Cranial nerves 2-12 intact. No deficits to light touch and temperature in face, upper extremities and lower extremities. No motor deficits in the in face, upper extremities and lower extremities. Normoreflexic in the upper and lower extremities. Normal speech. Toes are down-going bilaterally. Gait is normal without ataxia. PSYCHIATRIC: Cooperative. Good eye contact. Appropriate mood and affect. CBCD WBC 6.3 K/mm3 (4.0-10.0) 09/09/17 05:35 RBC 4.75 M/mm3 (3.60-5.2) 09/09/17 05:35 Hgb 13.4 GM/dL (10.7-15.3) 09/09/17 05:35 Hct 39.8 % (32.4-45.2) 09/09/17 05:35 MCV 83.7 fl (80-96) 09/09/17 05:35 MCHC 33.7 g/dl (32.0-36.0) 09/09/17 05:35 RDW 14.1 % (11.6-15.6) 09/09/17 05:35 Plt Count 264 K/MM3 (134-434) 09/09/17 05:35 MPV 7.7 fl (7.5-11.1) 09/09/17 05:35 CMP Sodium 135 mmol/L (136-145) L 09/09/17 05:35 Potassium 4.1 mmol/L (3.5-5.1) 09/09/17 05:35 Chloride 99 mmol/L (98-107) 09/09/17 05:35 Carbon Dioxide 29 mmol/L (21-32) 09/09/17 05:35 Anion Gap 7 (8-16) L 09/09/17 05:35 BUN 15 mg/dL (7-18) 09/09/17 05:35 Creatinine 0.9 mg/dL (0.55-1.02) 09/09/17 05:35 Creat Clearance w eGFR > 60 (>60) 09/09/17 05:35 Calcium 8.5 mg/dL (8.5-10.1) 09/09/17 05:35 Total Bilirubin 0.5 mg/dL (0.2-1.0) D 09/09/17 05:35 AST 28 U/L (15-37) D 09/09/17 05:35 ALT 32 U/L (12-78) 09/09/17 05:35 Alkaline Phosphatase 93 U/L (45-117) 09/09/17 05:35 Total Protein 7.7 g/dl (6.4-8.2) 09/09/17 05:35 Albumin 3.1 g/dl (3.4-5.0) L 09/09/17 05:35 - RADIOLOGY Radiograph Interpretation: EXAM: CT HEAD WITHOUT CONTRAST IMPRESSION: No acute brain parenchymal abnormality. No hemorrhage, mass or acute territorial infarct. Age-related involutional changes and minimal chronic small vessel ischemic changes. Clear visualized paranasal sinuses. Visualized mastoid air cells clear. 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 Plan: 82 year old female, with a significant past medical history of HTN and insulin- dependent diabetes who presents to the ED s/p altered mental status. Patients daughter reports she visited the patient the day of admission and the patient was confused and not acting like herself. As per daughter, the patient is finishing her sentences and is very forgetful. Daughter states the patients blood sugar level was 582 and lowered to 508 an hour later secondary to taking metformin and novolog. CT head completed and did not show acute changes. 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 Not TPA candidate as she is out of window. Concern for embolic phenomenon, though size could also indicate hypertensive. Echo, CD to be checked. Daily compliance to ASA needed to prevent CVA Endo notes also reviewed and Diabetes management ongoing. Continue IV/by mouth hydration. Close monitoring of glucose and treatment of hyperglycemia. unclear if patient was noncompliant of her glucose medications. Can continue Namziric and dementia medications as well. Blood pressure control goal range less than 160/90. Follow-up cardiology recommendations.
[2017-09-09] MEDS: ASPIRIN COATED 81 MG TABLET.EC PO SCH (10:15)
[2017-09-09] MEDS: LORATADINE 10 MG TABLET PO SCH (10:15)
[2017-09-09] MEDS: DONEPEZIL HCL 5 MG TABLET (FP) PO SCH (10:15)
[2017-09-09] MEDS: HEPARIN NA (PORCINE) 5,000 UNITS/ML 1ML VIAL SQ SCH ×2 (10:15→22:16)
--- NOTE | 2017-09-09 12:08 | CONSULT ---
Admitting History and Physical - Primary Care Physician PCP: Agueda Lee - Admission History of Present Illness: ALTERED MENTAL STATUS CHANGE RULE OUT CVA/HYPERGLYCEMIA Selected Entries 09/07/17 09/08/17 09/08/17 19:38 06:56 13:35 Supper Temperature 99.5 F 98.6 F 99.1 F 09/08/17 09/08/17 09/08/17 16:30 20:03 21:00 Supper 50% Temperature 98.7 F 98.5 F 09/09/17 09/09/17 01:03 06:00 Supper Temperature 98.2 F 98.1 F Laboratory Tests 09/07/17 09/09/17 20:20 05:35 WBC 8.0 D 6.3 MRI-R basal ganglia and L parietal acute to subacute infarcts. 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, Other (cataract) Cardiovascular: Yes: HTN Gastrointestinal: Yes: GERD Psych: Yes: Anxiety Endocrine: Yes: Diabetes Mellitus - Smoking History Smoking history: Never smoked Have you smoked in the past 12 months: No - Alcohol/Substance Use Hx Alcohol Use: No History of Substance Use: reports: None History - Admission Reason For Visit: HTN TIA UNCONTROLLED DIABETES - Diagnostics MRI: Report Reviewed ( R basal ganglia and L parietal acute to subacute infarcts.) - Hearing Hearing: Normal Speech Evaluation - Communication Primary Language: SETSWA[place] - Swallow Evaluation/Bedside Assessment Current Nutritional Intake: Regular, Thin Liquids
--- NOTE | 2017-09-09 12:28 | CONSULT ---
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, Other (cataract) Cardiovascular: Yes: HTN Gastrointestinal: Yes: GERD Psych: Yes: Anxiety Endocrine: Yes: Diabetes Mellitus - Smoking History Smoking history: Never smoked Have you smoked in the past 12 months: No - Alcohol/Substance Use Hx Alcohol Use: No History of Substance Use: reports: None History - Admission Reason For Visit: HTN TIA UNCONTROLLED DIABETES - Hearing Hearing: Normal Speech Evaluation - Communication Primary Language: AZERI Secondary Language: PERSIAN Communication: Yes: Within Normal Limits Oral Expression Ability: Yes: No Impairment - Speech Production Able to Make Needs Known: Yes: WNL Intelligibility: Yes: WNL - Speech Characteristics Voice Loudness: Normal Voice Pitch: Yes: Normal Voice Phonatory-based Quality: Yes: Normal Speech Pattern: Normal Speech Clarity: < 100% Nasal Resonance: Normal Articulation: Yes: Precise - Language/Auditory Comprehension Follows: Yes: 1 Stage Simple Commands Observation: Able to respond to yes/no queries: Yes, Yes/No Confusion: No, Comprehends Conversational Speech: Yes - Language/Verbal Expression Able to Respond to Simple Queries: Yes: WNL Able to Communicate Wants and Needs: Yes: WNL Functional Communication Status: Yes: WNL Attention: Yes: Intact - Swallow Evaluation/Bedside Assessment Current Nutritional Intake: Regular, Thin Liquids Oral Secretions: Yes: WFL Dentition: Yes: Adequate, Missing Teeth Facial Symmetry at Rest: Symmetrical Facial Symmetry on Retraction: Symmetrical Facial Movement: Controlled Sensation: Normal Against Resistance Opening: Normal Against Resistance Closing: Normal Pucker Lips: Normal Smile: Normal Lingual Movement: Normal, Symmetric Lingual Speed of Movement: Normal Lingual Movement Strgth Against Opposition: Normal Lingual Movement Characteristics: Normal Velopharyngeal Movement: Normal Laryngeal Elevation: WFL Laryngeal Movement: Able to Palpate Bolus Size: WFL Labial Seal: WFL Chewing: WFL Oral Prep Time: WFL Pocketing: None Timing of Swallow: WFL Coughing/Throat Clear: No Change in Voice: No Recommendations - Speech Evaluation, Impression/Plan Impression: Pt's daughter reported altered mental status, ambulatory and communicaTION DEFICITS WHICH HAVE SPONTANEOUSLY IMPROVED. Speech/language/ cognition/swallowing back to baseline. - Dysphagia Impressions/Plan Swallowing Skills: WFL Dysphagia Impressions: No Impairment *Silent aspiration: cannot be R/O at bedside - Recommendations Diet Consistency: Regular Medication Administration: Whole with water Liquids: Thin Liquids
--- NOTE | 2017-09-09 14:31 | CON.CARD ---
Consult Consult Specialty:: Cardiology Referred by:: Rosa Reason for Consultation:: HTN and CVA - History of Present Illness Chief Complaint: change in mental status History of Present Illness: 82 year old with a pmhx of htn and insulin dependent diabetes who presents with altered mental status. Patient's daughter reported that patient was acting confused and noted to have glucose of 582. No chest pain or dyspnea. No palpitations. No f/c/s. No n/v/d. CT head: no acute m/s/b EKG: sinus rhythm with nl axis, nonspecific T wave abnormalities, LVH MRI brain: late acute or subacute infarcts Carotid Duplex: no stenosis. 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: Peripheral Neuropathy, Other (cataract) Cardio/Vascular: Yes: HTN Gastrointestinal: Yes: GERD Psych: Yes: Anxiety Endocrine: Yes: Diabetes Mellitus - Alcohol/Substance Use Hx Alcohol Use: No History of Substance Use: reports: None - Smoking History Smoking history: Never smoked Have you smoked in the past 12 months: No - Social History Usual Living Arrangement: Alone Home Medications - Allergies Allergies/Adverse Reactions: Allergies Allergy/AdvReac Type Severity Reaction Status Date / Time shellfish derived Allergy Verified 09/07/17 21:25 - Home Medications Home Medications: Ambulatory Orders Aspirin [ASA -] 81 mg PO DAILY 05/22/16 Memantine HCl [Namenda -] 7 mg PO DAILY 05/22/16 Insulin Detemir [Levemir Flextouch] 10 unit SQ HS #1 box 05/25/16 Insulin Detemir [Levemir Flextouch] 20 unit SQ DAILY #1 box 05/25/16 Amoxicillin - [Amoxicillin 875mg Tablet -] 875 mg PO BID 08/17/17 Aspirin [Aspirin EC] 81 mg PO DAILY 08/17/17 Azilsartan Medoxomil [Edarbi] 80 mg PO DAILY 08/17/17 Donepezil HCl [Aricept -] 5 mg PO DAILY 08/17/17 Fluticasone Prop 0.05% Nasal [Flonase -] 1 puff IN BID 08/17/17 Insulin Aspart [Novolog Flexpen] 35 units SCJ DAILY 08/17/17 Linaclotide [Linzess] 145 mcg PO DAILY 08/17/17 Liraglutide [Victoza -] 1.8 mg SQ DAILY@0700 10/01/17 Loratadine [Claritin] 10 mg PO DAILY 08/17/17 Memantine HCl/Donepezil HCl [Namzaric 14 mg-10 mg Capsule] 1 tab PO DAILY Metformin HCl 500 mg PO BID 08/17/17 Vital Signs: Vital Signs Temperature 98.4 F 09/09/17 10:12 Pulse Rate 78 09/09/17 10:12 Respiratory Rate 18 09/09/17 10:12 Blood Pressure 124/72 09/09/17 10:12 O2 Sat by Pulse Oximetry (%) 98 09/09/17 09:00 Constitutional: Yes: No Distress Neck: Yes: Supple Respiratory: Yes: CTA Bilaterally Gastrointestinal: Yes: Normal Bowel Sounds, Soft Cardiovascular: Yes: Regular Rate and Rhythm JVD: No Carotid Bruit: No PMI: Non-Displaced Heart Sounds: Yes: S1, S2 Murmur: No: Systolic Murmur Edema: No - Other Data Labs, Other Data: CBC, BMP 09/09/17 05:35 09/09/17 05:35 INR, PTT INR 0.97 (0.82-1.09) 09/07/17 20:20 Imaging - Results Chest X-ray: Report Reviewed Cat Scan: Report Reviewed MRI: Report Reviewed EKG: Image Reviewed Problem List - Problems (1) HTN (hypertension) Code(s): I10 - ESSENTIAL (PRIMARY) HYPERTENSION Qualifiers: Hypertension type: essential hypertension Qualified Code(s): I10 - Essential (primary) hypertension; I10 - Essential (primary) hypertension; I10 - Essential (primary) hypertension Assessment/Plan 82 year old with a pmhx of htn and insulin dependent diabetes who presents with altered mental status. Patient's daughter reported that patient was acting confused and noted to have glucose of 582. No chest pain or dyspnea. No palpitations. No f/c/s. No n/v/d. CT head: no acute m/s/b EKG: sinus rhythm with nl axis, nonspecific T wave abnormalities, LVH MRI brain: late acute or subacute infarcts Carotid Duplex: no stenosis. 1) CVA -MRI with infarcts Carotid duplex with no hemodynamically significant stenosis Aspirin 81mg daily High dose statin if no contraindication Would recommend Echocardiogram child monitor during admission and would likely plan for outpatient skilled nursing event monitor to r/o afib BP control. This morning well controlled and appears got a dose of diovan last night. Would monitor blood pressure and if needed would start low dose arb/ana- i given h/o dm. Will f/u patient
--- NOTE | 2017-09-09 15:32 | PN ---
Progress Note, Physician Chief Complaint: AWAKE ALERT TODAY MORE FOCUSED - Current Medication List Current Medications: Active Medications Aspirin (Ecotrin -) 81 mg PO DAILY [facility] Last Admin: 09/09/17 10:15 Dose: 81 mg Atorvastatin Calcium (Lipitor -) 20 mg PO [facility] Donepezil HCl (Aricept -) 5 mg PO DAILY [facility] Last Admin: 09/09/17 10:15 Dose: 5 mg Heparin Sodium (Porcine) (Heparin -) 5,000 unit SQ BID [facility] Last Admin: 09/09/17 10:15 Dose: 5,000 unit Insulin Aspart (Novolog Vial Sliding Scale -) 1 vial SQ ACHS [facility] PRN Reason: Protocol Last Admin: 09/09/17 13:12 Dose: 3 units Insulin Detemir (Levemir Vial) 10 units SQ HS [facility] Last Admin: 09/08/17 21:42 Dose: 10 units Insulin Detemir (Levemir Vial) 35 units SQ ACBK [facility] Last Admin: 09/09/17 06:29 Dose: 35 units Liraglutide (Victoza -) 1.8 mg SQ DAILY@0700 [facility] Last Admin: 09/09/17 06:29 Dose: 1.8 mg Loratadine (Claritin -) 10 mg PO DAILY [facility] Last Admin: 09/09/17 10:15 Dose: 10 mg Non-Formulary Medication (Azilsartan Medoxomil [Edarbi]) 80 mg PO DAILY [facility] Non-Formulary Medication (Linaclotide [Linzess]) 145 mcg PO DAILY [facility] Namenda Xr 7 Mg Tablet - Patient Own Med 7 each PO DAILY [facility] - Objective Vital Signs: Vital Signs Temperature 98.4 F 09/09/17 10:12 Pulse Rate 78 09/09/17 10:12 Respiratory Rate 18 09/09/17 10:12 Blood Pressure 124/72 09/09/17 10:12 O2 Sat by Pulse Oximetry (%) 98 09/09/17 09:00 Constitutional: Yes: Mild Distress Eyes: Yes: WNL HENT: Yes: WNL Neck: Yes: WNL Cardiovascular: Yes: WNL Respiratory: Yes: WNL Gastrointestinal: Yes: WNL Genitourinary: Yes: WNL Musculoskeletal: Yes: Muscle Weakness Extremities: Yes: WNL Edema: No Peripheral Pulses WNL: Yes Integumentary: Yes: WNL Wound/Incision: Yes: Clean/Dry Neurological: Yes: Confusion, Pre-Existing Deficit, Unsteady Gait, Weakness ...Motor Strength: LLE, RLE Psychiatric: Yes: Other Labs: CBC, BMP 09/09/17 05:35 09/09/17 05:35 INR, PTT INR 0.97 (0.82-1.09) 09/07/17 20:20 Problem List - Problems (1) Anxiety Code(s): F41.9 - ANXIETY DISORDER, UNSPECIFIED (2) HTN (hypertension) Code(s): I10 - ESSENTIAL (PRIMARY) HYPERTENSION Qualifiers: Hypertension type: essential hypertension Qualified Code(s): I10 - Essential (primary) hypertension; I10 - Essential (primary) hypertension; I10 - Essential (primary) hypertension (3) Hyperglycemia Code(s): R73.9 - HYPERGLYCEMIA, UNSPECIFIED (4) Syncope Code(s): R55 - SYNCOPE AND COLLAPSE (5) TIA (transient ischemic attack) Code(s): G45.9 - TRANSIENT CEREBRAL ISCHEMIC ATTACK, UNSPECIFIED Qualifiers: Transient cerebral ischemia type: unspecified Qualified Code(s): G45.9 - Transient cerebral ischemic attack, unspecified; G45.9 - Transient cerebral ischemic attack, unspecified; G45.9 - Transient cerebral ischemic attack, unspecified (6) Uncontrolled diabetes mellitus Code(s): E11.65 - TYPE 2 DIABETES MELLITUS WITH HYPERGLYCEMIA Qualifiers: Diabetes mellitus type: type 1 Diabetes mellitus complication status: with hyperglycemia Qualified Code(s): E10.65 - Type 1 diabetes mellitus with hyperglycemia; E10.65 - Type 1 diabetes mellitus with hyperglycemia; E10.65 - Type 1 diabetes mellitus with hyperglycemia; E10.65 - Type 1 diabetes mellitus with hyperglycemia (7) Diabetes mellitus Code(s): E11.9 - TYPE 2 DIABETES MELLITUS WITHOUT COMPLICATIONS (8) Lightheadedness Code(s): R42 - DIZZINESS AND GIDDINESS Assessment/Plan S/P ACUTE CVA NEUROLOGY F/U START LIPITOR AND ASA LIPIDS ELEVATED DIABETIC CONTROL ENDOCRINE F/U PT EVAL [facility] PSYCHIATRY EVAL TRADIVE DYSKINESIA STOPPED ZYPREXA HYPONATREMIA STOPPED SERTRALINE MONITOR LEVELS URINE LYTES RENAL EVAL
--- NOTE | 2017-09-09 19:47 | CONSULT ---
Consult Consult Specialty:: Nephrology Reason for Consultation:: proteinuria - History of Present Illness Chief Complaint: confusion History of Present Illness: Pt is an 82 year old female with pmhx of HTN, DM and CKD who presents to the ER with altered mental status. She was found to be hyperglycemic. I was called to evaluate her for abnormal UA. She does have history of CKD and follows with Dr Pathak. She recently had a renal ultrasound but does not know the results. She occasionally uses nsaids. She denies dysuria or hematuria. She denies shortness of breath or lower extremity edema. 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: Peripheral Neuropathy, Other (cataract) Cardio/Vascular: Yes: HTN Gastrointestinal: Yes: GERD Renal/: Yes: Renal Inusuff Psych: Yes: Anxiety Endocrine: Yes: Diabetes Mellitus - Alcohol/Substance Use Hx Alcohol Use: No History of Substance Use: reports: None - Smoking History Smoking history: Never smoked Have you smoked in the past 12 months: No - Social History Usual Living Arrangement: Alone Home Medications - Allergies Allergies/Adverse Reactions: Allergies Allergy/AdvReac Type Severity Reaction Status Date / Time shellfish derived Allergy Verified 09/07/17 21:25 - Home Medications Home Medications: Ambulatory Orders Aspirin [ASA -] 81 mg PO DAILY 05/22/16 Memantine HCl [Namenda -] 7 mg PO DAILY 05/22/16 Insulin Detemir [Levemir Flextouch] 10 unit SQ HS #1 box 05/25/16 Insulin Detemir [Levemir Flextouch] 20 unit SQ DAILY #1 box 05/25/16 Amoxicillin - [Amoxicillin 875mg Tablet -] 875 mg PO BID 08/17/17 Aspirin [Aspirin EC] 81 mg PO DAILY 08/17/17 Azilsartan Medoxomil [Edarbi] 80 mg PO DAILY 08/17/17 Donepezil HCl [Aricept -] 5 mg PO DAILY 08/17/17 Fluticasone Prop 0.05% Nasal [Flonase -] 1 puff IN BID 08/17/17 Insulin Aspart [Novolog Flexpen] 35 units SCJ DAILY 08/17/17 Linaclotide [Linzess] 145 mcg PO DAILY 08/17/17 Liraglutide [Victoza -] 1.8 mg SQ DAILY@0700 08/17/17 Loratadine [Claritin] 10 mg PO DAILY 08/17/17 Memantine HCl/Donepezil HCl [Namzaric 14 mg-10 mg Capsule] 1 tab PO DAILY Metformin HCl 500 mg PO BID 08/17/17 Family Disease History - Family Disease History Family History: Denies Review of Systems - Review of Systems Constitutional: reports: No Symptoms Eyes: reports: No Symptoms HENT: reports: No Symptoms Neck: reports: No Symptoms Cardiovascular: reports: No Symptoms Respiratory: reports: No Symptoms Gastrointestinal: reports: No Symptoms Genitourinary: reports: No Symptoms Musculoskeletal: reports: No Symptoms Neurological: reports: Confusion Endocrine: reports: No Symptoms Hematology/Lymphatic: reports: No Symptoms Psychiatric: reports: No Symptoms Physical Exam Vital Signs: Vital Signs Temperature 98.5 F 09/09/17 14:00 Pulse Rate 83 09/09/17 14:00 Respiratory Rate 18 09/09/17 10:12 Blood Pressure 141/78 09/09/17 14:00 O2 Sat by Pulse Oximetry (%) 98 09/09/17 09:00 Constitutional: Yes: Calm Eyes: Yes: Conjunctiva Clear HENT: Yes: Atraumatic Neck: Yes: Supple Cardiovascular: Yes: S1, S2 Respiratory: Yes: CTA Bilaterally Gastrointestinal: Yes: Soft Renal/: Yes: WNL Musculoskeletal: Yes: WNL Edema: No Neurological: Yes: Oriented Labs: CBC, BMP 09/09/17 05:35 09/09/17 05:35 Laboratory Tests 09/07/17 09/08/17 09/09/17 20:50 17:50 05:35 WBC 6.3 Hgb 13.4 Sodium Potassium Chloride Creatinine 0.8 D Random Glucose Albumin Urine Protein 2+ H Urine Blood 1+ H 09/09/17 05:35 WBC Hgb Sodium 135 L Potassium 4.1 Chloride 99 Creatinine Random Glucose 229 H D Albumin 3.1 L Urine Protein Urine Blood Imaging - Results Chest X-ray: Report Reviewed Problem List - Problems (1) Anxiety Code(s): F41.9 - ANXIETY DISORDER, UNSPECIFIED (2) HTN (hypertension) Code(s): I10 - ESSENTIAL (PRIMARY) HYPERTENSION Qualifiers: Hypertension type: essential hypertension Qualified Code(s): I10 - Essential (primary) hypertension; I10 - Essential (primary) hypertension; I10 - Essential (primary) hypertension (3) Hyperglycemia Code(s): R73.9 - HYPERGLYCEMIA, UNSPECIFIED (4) Diabetes mellitus Code(s): E11.9 - TYPE 2 DIABETES MELLITUS WITHOUT COMPLICATIONS Assessment/Plan Current Medications Generic Name Dose Route Start Last Admin Trade Name Luis Miguel PRN Reason Stop Dose Admin Aspirin 81 mg 09/08/17 10:00 09/09/17 10:15 Ecotrin - PO 81 mg DAILY [facility] Administration Atorvastatin Calcium 20 mg 09/09/17 22:00 Lipitor - PO HS [facility] Donepezil HCl 5 mg 09/08/17 10:00 09/09/17 10:15 Aricept - PO 5 mg DAILY [facility] Administration Heparin Sodium (Porcine) 5,000 unit 09/08/17 10:00 09/09/17 10:15 Heparin - SQ 5,000 unit BID [facility] Administration Insulin Aspart 1 vial 09/09/17 07:00 09/09/17 17:04 Novolog Vial Sliding Scale - SQ 5 units ACHS [facility] Administration Protocol Insulin Detemir 10 units 09/08/17 22:00 09/08/17 21:42 Levemir Vial SQ 10 units HS [facility] Administration Insulin Detemir 35 units 09/09/17 00:11 09/09/17 06:29 Levemir Vial SQ 35 units ACBK [facility] Administration Liraglutide 1.8 mg 09/08/17 07:00 09/09/17 06:29 Victoza - SQ 1.8 mg DAILY@0700 [facility] Administration Loratadine 10 mg 09/08/17 10:00 09/09/17 10:15 Claritin - PO 10 mg DAILY [facility] Administration Non-Formulary Medication 80 mg 09/08/17 10:00 Azilsartan Medoxomil [Edarbi] PO DAILY [facility] Non-Formulary Medication 145 mcg 09/08/17 10:00 Linaclotide [Linzess] PO DAILY [facility] Namenda Xr 7 Mg 7 each 09/08/17 10:00 Tablet - Patient Own PO Med DAILY [facility] Impression 1. CKD 2. proteinuria 3. hyponatremia 4. DM uncontrolled 5. HTN 6. anxiety 7. hyperlipidemia Plan - cont current meds - will discuss renal workup with Dr Pathak - check urine protein to creatinine ratio - repeat labs in am - corrected sodium is normal today Dr Fletcher
[2017-09-09] MEDS: VALSARTAN 160 MG TABLET (UD) PO SCH (22:16)
[2017-09-09] MEDS: hydrOXYzine HCL 25 MG TABLET (FP) PO SCH (22:16)
[2017-09-09] MEDS: ATORVASTATIN CA 20 MG TABLET (FP) PO SCH (22:16)
[2017-09-10 07:33] LABS: ANION GAP 8 (8-16); CALCIUM 8.7 mg/dL (8.5-10.1); CO2 26 mmol/L (21-32); GLUCOSE,RANDOM 94 mg/dL (74-106)
[2017-09-10 07:35] LABS: CREATININE 0.8 mg/dL (0.55-1.02)
[2017-09-10] MEDS: INSULIN DETEMIR 100 UNITS/ML MDV SQ SCH ×2 (08:15→22:16)
[2017-09-10] MEDS: hydrOXYzine HCL 25 MG TABLET (FP) PO SCH (09:54)
[2017-09-10] MEDS: ASPIRIN COATED 81 MG TABLET.EC PO SCH (09:54)
[2017-09-10] MEDS: HEPARIN NA (PORCINE) 5,000 UNITS/ML 1ML VIAL SQ SCH ×2 (09:54→22:13)
[2017-09-10] MEDS: VALSARTAN 160 MG TABLET (UD) PO SCH (09:54)
[2017-09-10] MEDS: LORATADINE 10 MG TABLET PO SCH (09:54)
[2017-09-10] MEDS: LIRAGLUTIDE 0.6 MG/0.1 ML PEN.INJCTR SQ SCH (09:55)
[2017-09-10] MEDS: INSULIN SLIDING SCALE (NOVOLOG) 1 VIAL SQ SCH ×4 (09:56→22:16)
[2017-09-10] MEDS: DONEPEZIL HCL 5 MG TABLET (FP) PO SCH (09:56)
--- NOTE | 2017-09-10 10:08 | PN ---
Progress Note (short form) - Note Progress Note: Neurology History of Present Illness The patient is a 82 year old female, with a significant past medical history of HTN and insulin-dependent diabetes who presents to the ED s/p altered mental status. Patients daughter reports she visited the patient the day of admission and the patient was confused and not acting like herself. As per daughter, the patient is finishing her sentences and is very forgetful. Daughter states the patients blood sugar level was 582 and lowered to 508 an hour later secondary to taking metformin and novolog. CT head completed and did not show acute changes. 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 Not TPA candidate as she was out of window. Given distribution, there is concern for embolic phenomenon, though size could also indicate hypertensive. When asked if she takes ASA, she reports she takes it occasionally and does not seem to be daily compliant. Instructed her it would be necessary to take daily for CVA prevention. Endo notes also reviewed and Diabetes management ongoing. CD reviewed and did not show hemodynamic stenosis. Awaiting Echo. Active Medications Aspirin (Ecotrin -) 81 mg PO DAILY [facility] Last Admin: 09/10/17 09:54 Dose: 81 mg Atorvastatin Calcium (Lipitor -) 20 mg PO HS [facility] Last Admin: 09/09/17 22:16 Dose: 20 mg Donepezil HCl (Aricept -) 5 mg PO DAILY [facility] Last Admin: 09/10/17 09:56 Dose: 5 mg Heparin Sodium (Porcine) (Heparin -) 5,000 unit SQ BID [facility] Last Admin: 09/10/17 09:54 Dose: 5,000 unit Hydroxyzine HCl (Atarax -) 25 mg PO DAILY [facility] Last Admin: 09/10/17 09:54 Dose: 25 mg Insulin Aspart (Novolog Vial Sliding Scale -) 1 vial SQ ACHS [facility] PRN Reason: Protocol Last Admin: 09/10/17 09:56 Dose: Not Given Insulin Detemir (Levemir Vial) 10 units SQ HS [facility] Last Admin: 09/09/17 22:18 Dose: 10 units Insulin Detemir (Levemir Vial) 35 units SQ ACBK [facility] Last Admin: 09/10/17 08:15 Dose: 35 units Liraglutide (Victoza -) 1.8 mg SQ DAILY@0700 [facility] Last Admin: 09/10/17 09:55 Dose: Not Given Loratadine (Claritin -) 10 mg PO DAILY [facility] Last Admin: 09/10/17 09:54 Dose: 10 mg Non-Formulary Medication (Azilsartan Medoxomil [Edarbi]) 80 mg PO DAILY [facility] Non-Formulary Medication (Linaclotide [Linzess]) 145 mcg PO DAILY [facility] Namenda Xr 7 Mg Tablet - Patient Own Med 7 each PO DAILY [facility] Valsartan (Diovan -) 160 mg PO DAILY [facility] Last Admin: 09/10/17 09:54 Dose: 160 mg *Physical Exam Vital Signs Temperature 98 F 09/10/17 07:38 Pulse Rate 74 09/10/17 07:38 Respiratory Rate 20 09/10/17 07:38 Blood Pressure 114/59 09/10/17 07:38 O2 Sat by Pulse Oximetry (%) 96 09/09/17 21:00 Physical Exam: GENERAL: Well developed, well nourished. Awake and alert. No acute distress. HEENT: Normocephalic, atraumatic. PERRLA, EOMI. No conjunctival pallor. Sclera are non- icteric. Moist mucous membranes. Oropharynx is clear. NECK: Supple. Full ROM. No JVD. Carotid pulses 2+ and symmetric, without bruits. No thyromegaly. No lymphadenopathy. CARDIOVASCULAR: Regular rate and rhythm. No murmurs, rubs, or gallops. Distal pulses are 2+ and symmetric. PULMONARY: No evidence of respiratory distress. Lungs clear to auscultation bilaterally. No wheezing, rales or rhonchi. ABDOMINAL: Soft. Non-tender. Non-distended. No rebound or guarding. No organomegaly. Normoactive bowel sounds. MUSCULOSKELETAL Normal range of motion at all joints. No bony deformities or tenderness. No CVA tenderness. EXTREMITIES: No cyanosis. No clubbing. No edema. No calf tenderness. SKIN: Warm and dry. Normal capillary refill. No rashes. No jaundice. NEUROLOGICAL: + Confused, altered mental status, no gross focal neuro deficits, no facial droop, no extremity weakness. Cranial nerves 2-12 intact. No deficits to light touch and temperature in face, upper extremities and lower extremities. No motor deficits in the in face, upper extremities and lower extremities. Normoreflexic in the upper and lower extremities. Normal speech. Toes are down-going bilaterally. Gait is normal without ataxia. PSYCHIATRIC: Cooperative. Good eye contact. Appropriate mood and affect. CBCD WBC 6.3 K/mm3 (4.0-10.0) 09/09/17 05:35 RBC 4.75 M/mm3 (3.60-5.2) 09/09/17 05:35 Hgb 13.4 GM/dL (10.7-15.3) 09/09/17 05:35 Hct 39.8 % (32.4-45.2) 09/09/17 05:35 MCV 83.7 fl (80-96) 09/09/17 05:35 MCHC 33.7 g/dl (32.0-36.0) 09/09/17 05:35 RDW 14.1 % (11.6-15.6) 09/09/17 05:35 Plt Count 264 K/MM3 (134-434) 09/09/17 05:35 MPV 7.7 fl (7.5-11.1) 09/09/17 05:35 CMP Sodium 135 mmol/L (136-145) L 09/09/17 05:35 Potassium 4.1 mmol/L (3.5-5.1) 09/09/17 05:35 Chloride 99 mmol/L (98-107) 09/09/17 05:35 Carbon Dioxide 29 mmol/L (21-32) 09/09/17 05:35 Anion Gap 7 (8-16) L 09/09/17 05:35 BUN 15 mg/dL (7-18) 09/09/17 05:35 Creatinine 0.9 mg/dL (0.55-1.02) 09/09/17 05:35 Creat Clearance w eGFR > 60 (>60) 09/09/17 05:35 Calcium 8.5 mg/dL (8.5-10.1) 09/09/17 05:35 Total Bilirubin 0.5 mg/dL (0.2-1.0) D 09/09/17 05:35 AST 28 U/L (15-37) D 09/09/17 05:35 ALT 32 U/L (12-78) 09/09/17 05:35 Alkaline Phosphatase 93 U/L (45-117) 09/09/17 05:35 Total Protein 7.7 g/dl (6.4-8.2) 09/09/17 05:35 Albumin 3.1 g/dl (3.4-5.0) L 09/09/17 05:35 - RADIOLOGY Radiograph Interpretation: EXAM: CT HEAD WITHOUT CONTRAST IMPRESSION: No acute brain parenchymal abnormality. No hemorrhage, mass or acute territorial infarct. Age-related involutional changes and minimal chronic small vessel ischemic changes. Clear visualized paranasal sinuses. Visualized mastoid air cells clear. 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 CD without HD stenosis Plan: 82 year old female, with a significant past medical history of HTN and insulin- dependent diabetes who presents to the ED s/p altered mental status. Patients daughter reports she visited the patient the day of admission and the patient was confused and not acting like herself. As per daughter, the patient is finishing her sentences and is very forgetful. Daughter states the patients blood sugar level was 582 and lowered to 508 an hour later secondary to taking metformin and novolog. CT head completed and did not show acute changes. 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 CD reviewed Awaiting Echo Concern for embolic phenomenon, though size could also indicate hypertensive. Daily compliance to ASA needed to prevent CVA Endo notes also reviewed and Diabetes management ongoing. Continue IV/by mouth hydration. Close monitoring of glucose and treatment of hyperglycemia. unclear if patient was noncompliant of her glucose medications. Can continue Namziric and dementia medications as well. Blood pressure control goal range less than 160/90. Follow-up cardiology recommendations.
--- NOTE | 2017-09-10 10:48 | PN ---
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 No hemorrhage, mass or acute territorial infarct. Age-related involutional changes and minimal chronic small vessel ischemic changes. Clear visualized paranasal sinuses. Visualized mastoid air cells clear. 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 CD without HD stenosis Selected Entries 09/09/17 09/09/17 09/09/17 01:03 06:00 10:12 Diet Tolerated Supper Temperature 98.2 F 98.1 F 98.4 F 09/09/17 09/09/17 09/09/17 14:00 17:00 21:00 Diet Tolerated Supper Temperature 98.5 F 98.8 F 98.2 F 09/09/17 09/10/17 09/10/17 23:14 02:50 06:00 Diet Tolerated Well Supper 100% Temperature 97.5 F L 98.8 F 09/10/17 07:38 Diet Tolerated Supper Temperature 98 F Laboratory Tests 09/09/17 05:35 WBC 6.3 Verbal. Doing well with PO diet.
--- NOTE | 2017-09-10 11:36 | PN ---
Progress Note, Physician History of Present Illness: Pt seen and examined at bedside. She appears comfortable. She denies dysuria or hematuria. - Current Medication List Current Medications: Active Medications Aspirin (Ecotrin -) 81 mg PO DAILY [facility] Last Admin: 09/10/17 09:54 Dose: 81 mg Atorvastatin Calcium (Lipitor -) 20 mg PO HS [facility] Last Admin: 09/09/17 22:16 Dose: 20 mg Donepezil HCl (Aricept -) 5 mg PO DAILY [facility] Last Admin: 09/10/17 09:56 Dose: 5 mg Heparin Sodium (Porcine) (Heparin -) 5,000 unit SQ BID [facility] Last Admin: 09/10/17 09:54 Dose: 5,000 unit Hydroxyzine HCl (Atarax -) 25 mg PO DAILY [facility] Last Admin: 09/10/17 09:54 Dose: 25 mg Insulin Aspart (Novolog Vial Sliding Scale -) 1 vial SQ ACHS [facility] PRN Reason: Protocol Last Admin: 09/10/17 11:16 Dose: 7 units Insulin Detemir (Levemir Vial) 10 units SQ HS [facility] Last Admin: 09/09/17 22:18 Dose: 10 units Insulin Detemir (Levemir Vial) 35 units SQ ACBK [facility] Last Admin: 09/10/17 08:15 Dose: 35 units Liraglutide (Victoza -) 1.8 mg SQ DAILY@0700 [facility] Last Admin: 09/10/17 09:55 Dose: Not Given Loratadine (Claritin -) 10 mg PO DAILY [facility] Last Admin: 09/10/17 09:54 Dose: 10 mg Non-Formulary Medication (Azilsartan Medoxomil [Edarbi]) 80 mg PO DAILY [facility] Non-Formulary Medication (Linaclotide [Linzess]) 145 mcg PO DAILY [facility] Namenda Xr 7 Mg Tablet - Patient Own Med 7 each PO DAILY [facility] Valsartan (Diovan -) 160 mg PO DAILY [facility] Last Admin: 09/10/17 09:54 Dose: 160 mg - Objective Vital Signs: Vital Signs Temperature 98 F 09/10/17 07:38 Pulse Rate 74 09/10/17 07:38 Respiratory Rate 20 09/10/17 08:00 Blood Pressure 114/59 09/10/17 07:38 O2 Sat by Pulse Oximetry (%) 98 09/10/17 08:00 Constitutional: Yes: Calm Eyes: Yes: Conjunctiva Clear HENT: Yes: Atraumatic Cardiovascular: Yes: S1, S2 Respiratory: Yes: CTA Bilaterally Gastrointestinal: Yes: Normal Bowel Sounds, Soft Genitourinary: Yes: WNL Edema: No Neurological: Yes: Oriented Labs: CBC, BMP 09/09/17 05:35 09/10/17 06:40 INR, PTT INR 0.97 (0.82-1.09) 09/07/17 20:20 Problem List - Problems (1) Anxiety Code(s): F41.9 - ANXIETY DISORDER, UNSPECIFIED (2) HTN (hypertension) Code(s): I10 - ESSENTIAL (PRIMARY) HYPERTENSION Qualifiers: Hypertension type: essential hypertension Qualified Code(s): I10 - Essential (primary) hypertension; I10 - Essential (primary) hypertension; I10 - Essential (primary) hypertension (3) Hyperglycemia Code(s): R73.9 - HYPERGLYCEMIA, UNSPECIFIED (4) Diabetes mellitus Code(s): E11.9 - TYPE 2 DIABETES MELLITUS WITHOUT COMPLICATIONS Assessment/Plan Current Medications Generic Name Dose Route Start Last Admin Trade Name Natanaelq PRN Reason Stop Dose Admin Aspirin 81 mg 09/08/17 10:00 09/10/17 09:54 Ecotrin - PO 81 mg DAILY [facility] Administration Atorvastatin Calcium 20 mg 09/09/17 22:00 09/09/17 22:16 Lipitor - PO 20 mg HS [facility] Administration Donepezil HCl 5 mg 09/08/17 10:00 09/10/17 09:56 Aricept - PO 5 mg DAILY [facility] Administration Heparin Sodium (Porcine) 5,000 unit 09/08/17 10:00 09/10/17 09:54 Heparin - SQ 5,000 unit BID [facility] Administration Hydroxyzine HCl 25 mg 09/09/17 20:00 09/10/17 09:54 Atarax - PO 25 mg DAILY [facility] Administration Insulin Aspart 1 vial 09/09/17 07:00 09/10/17 11:16 Novolog Vial Sliding Scale - SQ 7 units ACHS [facility] Administration Protocol Insulin Detemir 10 units 09/08/17 22:00 09/09/17 22:18 Levemir Vial SQ 10 units HS [facility] Administration Insulin Detemir 35 units 09/09/17 00:11 09/10/17 08:15 Levemir Vial SQ 35 units ACBK [facility] Administration Liraglutide 1.8 mg 09/08/17 07:00 09/10/17 09:55 Victoza - SQ Not Given DAILY@0700 [facility] Loratadine 10 mg 09/08/17 10:00 09/10/17 09:54 Claritin - PO 10 mg DAILY [facility] Administration Non-Formulary Medication 80 mg 09/08/17 10:00 Azilsartan Medoxomil [Edarbi] PO DAILY [facility] Non-Formulary Medication 145 mcg 09/08/17 10:00 Linaclotide [Linzess] PO DAILY [facility] Namenda Xr 7 Mg 7 each 09/08/17 10:00 Tablet - Patient Own PO Med DAILY [facility] Valsartan 160 mg 09/09/17 20:00 09/10/17 09:54 Diovan - PO 160 mg DAILY [facility] Administration Impression 1. CKD 2. proteinuria 3. hyponatremia 4. DM uncontrolled 5. HTN 6. anxiety 7. hyperlipidemia Plan - cont current meds - renal workup as outpt - pt will follow with Dr Pathak - follow up urine studies - glucose is better controlled - sodium level is normal Dr Fletcher
--- NOTE | 2017-09-10 14:22 | PN ---
Progress Note, Physician Chief Complaint: No complaints today History of Present Illness: 82 year old with a pmhx of htn and insulin dependent diabetes who presents with altered mental status. Patient's daughter reported that patient was acting confused and noted to have glucose of 582. No chest pain or dyspnea. No palpitations. No f/c/s. No n/v/d. CT head: no acute m/s/b EKG: sinus rhythm with nl axis, nonspecific T wave abnormalities, LVH MRI brain: late acute or subacute infarcts Carotid Duplex: no stenosis. - Current Medication List Current Medications: Active Medications Aspirin (Ecotrin -) 81 mg PO DAILY [facility] Last Admin: 09/10/17 09:54 Dose: 81 mg Atorvastatin Calcium (Lipitor -) 20 mg PO HS [facility] Last Admin: 09/09/17 22:16 Dose: 20 mg Donepezil HCl (Aricept -) 5 mg PO DAILY [facility] Last Admin: 09/10/17 09:56 Dose: 5 mg Heparin Sodium (Porcine) (Heparin -) 5,000 unit SQ BID [facility] Last Admin: 09/10/17 09:54 Dose: 5,000 unit Hydroxyzine HCl (Atarax -) 25 mg PO DAILY [facility] Last Admin: 09/10/17 09:54 Dose: 25 mg Insulin Aspart (Novolog Vial Sliding Scale -) 1 vial SQ ACHS [facility] PRN Reason: Protocol Last Admin: 09/10/17 11:16 Dose: 7 units Insulin Detemir (Levemir Vial) 10 units SQ HS [facility] Last Admin: 09/09/17 22:18 Dose: 10 units Insulin Detemir (Levemir Vial) 35 units SQ ACBK [facility] Last Admin: 09/10/17 08:15 Dose: 35 units Liraglutide (Victoza -) 1.8 mg SQ DAILY@0700 [facility] Last Admin: 09/10/17 09:55 Dose: Not Given Loratadine (Claritin -) 10 mg PO DAILY [facility] Last Admin: 09/10/17 09:54 Dose: 10 mg Non-Formulary Medication (Azilsartan Medoxomil [Edarbi]) 80 mg PO DAILY [facility] Non-Formulary Medication (Linaclotide [Linzess]) 145 mcg PO DAILY [facility] Namenda Xr 7 Mg Tablet - Patient Own Med 7 each PO DAILY [facility] Valsartan (Diovan -) 160 mg PO DAILY [facility] Last Admin: 10/25/17 09:54 Dose: 160 mg - Objective Vital Signs: Vital Signs Temperature 98 F 09/10/17 07:38 Pulse Rate 74 09/10/17 07:38 Respiratory Rate 20 09/10/17 08:00 Blood Pressure 114/59 09/10/17 07:38 O2 Sat by Pulse Oximetry (%) 98 09/10/17 08:00 Constitutional: Yes: No Distress Neck: Yes: Supple Cardiovascular: Yes: Regular Rate and Rhythm, Murmur (3/6 HSM RUSB), S1, S2. No : JVD Respiratory: Yes: CTA Bilaterally Gastrointestinal: Yes: Normal Bowel Sounds, Soft Edema: No Labs: CBC, BMP 09/09/17 05:35 09/10/17 06:40 INR, PTT INR 0.97 (0.82-1.09) 09/07/17 20:20 Problem List - Problems (1) HTN (hypertension) Code(s): I10 - ESSENTIAL (PRIMARY) HYPERTENSION Qualifiers: Hypertension type: essential hypertension Qualified Code(s): I10 - Essential (primary) hypertension; I10 - Essential (primary) hypertension; I10 - Essential (primary) hypertension Assessment/Plan 82 year old with a pmhx of htn and insulin dependent diabetes who presents with altered mental status. Patient's daughter reported that patient was acting confused and noted to have glucose of 582. No chest pain or dyspnea. No palpitations. No f/c/s. No n/v/d. CT head: no acute m/s/b EKG: sinus rhythm with nl axis, nonspecific T wave abnormalities, LVH MRI brain: late acute or subacute infarcts Carotid Duplex: no stenosis. 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 Mod-sev AR -Recent cva. Would plan for ischemia work up after patient is one month post stroke On aspirin/statin. Continue diovan but if BP allows would start metoprolol xl 25mg daily both for possible cad and for systolic CHF. Will need outpatient cardiac follow up.
--- NOTE | 2017-09-10 19:07 | PN ---
Progress Note, Physician Chief Complaint: AWAKE MORE ALERT ECHO AND CAROTID DOPPLERS REVIEWED - Current Medication List Current Medications: Active Medications Aspirin (Ecotrin -) 81 mg PO DAILY [facility] Last Admin: 09/10/17 09:54 Dose: 81 mg Atorvastatin Calcium (Lipitor -) 20 mg PO HS [facility] Last Admin: 09/09/17 22:16 Dose: 20 mg Donepezil HCl (Aricept -) 5 mg PO DAILY [facility] Last Admin: 09/10/17 09:56 Dose: 5 mg Heparin Sodium (Porcine) (Heparin -) 5,000 unit SQ BID [facility] Last Admin: 09/10/17 09:54 Dose: 5,000 unit Hydroxyzine HCl (Atarax -) 25 mg PO DAILY [facility] Last Admin: 09/10/17 09:54 Dose: 25 mg Insulin Aspart (Novolog Vial Sliding Scale -) 1 vial SQ [facility] PRN Reason: Protocol Last Admin: 09/10/17 17:02 Dose: 5 units Insulin Detemir (Levemir Vial) 10 units SQ HS [facility] Last Admin: 09/09/17 22:18 Dose: 10 units Insulin Detemir (Levemir Vial) 35 units SQ ACBK [facility] Last Admin: 09/10/17 08:15 Dose: 35 units Liraglutide (Victoza -) 1.8 mg SQ DAILY@0700 [facility] Last Admin: 09/10/17 09:55 Dose: Not Given Loratadine (Claritin -) 10 mg PO DAILY [facility] Last Admin: 09/10/17 09:54 Dose: 10 mg Non-Formulary Medication (Azilsartan Medoxomil [Edarbi]) 80 mg PO DAILY [facility] Non-Formulary Medication (Linaclotide [Linzess]) 145 mcg PO DAILY [facility] Namenda Xr 7 Mg Tablet - Patient Own Med 7 each PO DAILY [facility] Valsartan (Diovan -) 160 mg PO DAILY [facility] Last Admin: 09/10/17 09:54 Dose: 160 mg - Objective Vital Signs: Vital Signs Temperature 97.9 F 09/10/17 14:00 Pulse Rate 78 09/10/17 14:00 Respiratory Rate 20 09/10/17 08:00 Blood Pressure 140/69 09/10/17 14:00 O2 Sat by Pulse Oximetry (%) 98 09/10/17 08:00 Constitutional: Yes: No Distress Eyes: Yes: WNL HENT: Yes: WNL Neck: Yes: WNL Cardiovascular: Yes: WNL Respiratory: Yes: WNL Gastrointestinal: Yes: WNL Genitourinary: Yes: WNL Musculoskeletal: Yes: Muscle Weakness Extremities: Yes: WNL Edema: No Peripheral Pulses WNL: Yes Integumentary: Yes: WNL Wound/Incision: Yes: Clean/Dry Neurological: Yes: Pre-Existing Deficit ...Motor Strength: LLE, RLE Psychiatric: Yes: Other Labs: CBC, BMP 09/09/17 05:35 09/10/17 06:40 INR, PTT INR 0.97 (0.82-1.09) 09/07/17 20:20 Problem List - Problems (1) Anxiety Code(s): F41.9 - ANXIETY DISORDER, UNSPECIFIED (2) HTN (hypertension) Code(s): I10 - ESSENTIAL (PRIMARY) HYPERTENSION Qualifiers: Hypertension type: essential hypertension Qualified Code(s): I10 - Essential (primary) hypertension; I10 - Essential (primary) hypertension; I10 - Essential (primary) hypertension (3) Hyperglycemia Code(s): R73.9 - HYPERGLYCEMIA, UNSPECIFIED (4) Syncope Code(s): R55 - SYNCOPE AND COLLAPSE (5) TIA (transient ischemic attack) Code(s): G45.9 - TRANSIENT CEREBRAL ISCHEMIC ATTACK, UNSPECIFIED Qualifiers: Transient cerebral ischemia type: unspecified Qualified Code(s): G45.9 - Transient cerebral ischemic attack, unspecified; G45.9 - Transient cerebral ischemic attack, unspecified; G45.9 - Transient cerebral ischemic attack, unspecified (6) Uncontrolled diabetes mellitus Code(s): E11.65 - TYPE 2 DIABETES MELLITUS WITH HYPERGLYCEMIA Qualifiers: Diabetes mellitus type: type 1 Diabetes mellitus complication status: with hyperglycemia Qualified Code(s): E10.65 - Type 1 diabetes mellitus with hyperglycemia; E10.65 - Type 1 diabetes mellitus with hyperglycemia; E10.65 - Type 1 diabetes mellitus with hyperglycemia; E10.65 - Type 1 diabetes mellitus with hyperglycemia (7) Diabetes mellitus Code(s): E11.9 - TYPE 2 DIABETES MELLITUS WITHOUT COMPLICATIONS (8) Lightheadedness Code(s): R42 - DIZZINESS AND GIDDINESS (9) Acute metabolic encephalopathy Assessment/Plan: IN ACUTE SETTING OF CVA, DM, HTN, HYPONATREMIA Code(s): G93.41 - METABOLIC ENCEPHALOPATHY Assessment/Plan ECHO REVIEWED CAN NOT RULE OUT POSSIBLE VEGETATIONS WILL NEED CARDIAC WORKUP IN 1 MONTH POST-CVA ON STATIN ON ASA NEURO/CARDIO CONSULTS APPRECITED HBA1C OVER 12! DIETARY CONSULT ENDOCRINE FOLLOW UP [facility] ADA SWALLOW EVAL PT SNF
[2017-09-10] MEDS: ATORVASTATIN CA 20 MG TABLET (FP) PO SCH (22:13)
--- NOTE | 2017-09-10 22:55 | PN ---
Progress Note, Physician Chief Complaint: eating well appetite improved sugars stable History of Present Illness: dm,htn ashd,tia, uncontrolled diabetes mellitus - Current Medication List Current Medications: Active Medications Aspirin (Ecotrin -) 81 mg PO DAILY [facility] Last Admin: 09/10/17 09:54 Dose: 81 mg Atorvastatin Calcium (Lipitor -) 20 mg PO HS [facility] Last Admin: 09/10/17 22:13 Dose: 20 mg Donepezil HCl (Aricept -) 5 mg PO DAILY [facility] Last Admin: 09/10/17 09:56 Dose: 5 mg Heparin Sodium (Porcine) (Heparin -) 5,000 unit SQ BID [facility] Last Admin: 09/10/17 22:13 Dose: 5,000 unit Hydroxyzine HCl (Atarax -) 25 mg PO DAILY [facility] Last Admin: 09/10/17 09:54 Dose: 25 mg Insulin Aspart (Novolog Vial Sliding Scale -) 1 vial SQ ACHS [facility] PRN Reason: Protocol Last Admin: 09/10/17 22:16 Dose: 9 units Insulin Detemir (Levemir Vial) 10 units SQ HS [facility] Last Admin: 09/10/17 22:16 Dose: 10 units Insulin Detemir (Levemir Vial) 35 units SQ ACBK [facility] Last Admin: 09/10/17 08:15 Dose: 35 units Liraglutide (Victoza -) 1.8 mg SQ DAILY@0700 [facility] Last Admin: 09/10/17 09:55 Dose: Not Given Loratadine (Claritin -) 10 mg PO DAILY [facility] Last Admin: 09/10/17 09:54 Dose: 10 mg Non-Formulary Medication (Azilsartan Medoxomil [Edarbi]) 80 mg PO DAILY [facility] Non-Formulary Medication (Linaclotide [Linzess]) 145 mcg PO DAILY [facility] Namenda Xr 7 Mg Tablet - Patient Own Med 7 each PO DAILY [facility] Valsartan (Diovan -) 160 mg PO DAILY [facility] Last Admin: 09/10/17 09:54 Dose: 160 mg - Objective Vital Signs: Vital Signs Temperature 98.0 F 09/10/17 17:00 Pulse Rate 80 09/10/17 17:00 Respiratory Rate 18 09/10/17 17:00 Blood Pressure 160/86 09/10/17 17:00 O2 Sat by Pulse Oximetry (%) 98 09/10/17 08:00 Constitutional: Yes: Calm Eyes: Yes: EOM Intact HENT: Yes: Normocephalic Neck: Yes: Trachea Midline Cardiovascular: Yes: Regular Rate and Rhythm Respiratory: Yes: CTA Bilaterally Gastrointestinal: Yes: Normal Bowel Sounds ...Rectal Exam: Yes: Deferred Genitourinary: Yes: WNL Breast(s): Yes: WNL Musculoskeletal: Yes: Joint Stiffness, Muscle Weakness Extremities: Yes: WNL Edema: No Peripheral Pulses WNL: Yes Neurological: Yes: Alert, Oriented ...Motor Strength: WNL Labs: CBC, BMP 09/09/17 05:35 09/10/17 06:40 INR, PTT INR 0.97 (0.82-1.09) 09/07/17 20:20 Problem List - Problems (1) HTN (hypertension) Code(s): I10 - ESSENTIAL (PRIMARY) HYPERTENSION Qualifiers: Hypertension type: essential hypertension Qualified Code(s): I10 - Essential (primary) hypertension; I10 - Essential (primary) hypertension; I10 - Essential (primary) hypertension (2) Hyponatremia Code(s): E87.1 - HYPO-OSMOLALITY AND HYPONATREMIA (3) TIA (transient ischemic attack) Code(s): G45.9 - TRANSIENT CEREBRAL ISCHEMIC ATTACK, UNSPECIFIED Qualifiers: Transient cerebral ischemia type: unspecified Qualified Code(s): G45.9 - Transient cerebral ischemic attack, unspecified; G45.9 - Transient cerebral ischemic attack, unspecified; G45.9 - Transient cerebral ischemic attack, unspecified Assessment/Plan Current Active Problems Acute metabolic encephalopathy (Acute) Anxiety (Acute) HTN (hypertension) (Acute) Hyperglycemia (Acute) Hyponatremia (Acute) Syncope (Acute) TIA (transient ischemic attack) (Acute) Thyroid disease (Acute) Uncontrolled diabetes mellitus (Acute) Abnormal Lab Results 09/10/17 09/10/17 06:40 06:40 BUN 19 H D Hemoglobin A1c % 12.2 H D Laboratory Results - last 24 hr 09/10/17 09/10/17 09/10/17 06:26 06:40 06:40 Sodium 137 Potassium 3.9 Chloride 103 Carbon Dioxide 26 Anion Gap 8 BUN 19 H D Creatinine 0.8 POC Glucometer 119 Random Glucose 94 D Hemoglobin A1c % 12.2 H D Calcium 8.7 09/10/17 09/10/17 09/10/17 11:13 15:49 22:05 Sodium Potassium Chloride Carbon Dioxide Anion Gap BUN Creatinine POC Glucometer 256 227 319 Random Glucose Hemoglobin A1c % Calcium plan: bgm qid novolog insulin dose levemir 45 am /levemir 10 units hs start synthroid 50mcg am Laboratory Tests 08/17/17 13:10 TSH 9.72 H D
[2017-09-10] MEDS ORDERED: INSULIN DETEMIR 100 UNITS/ML MDV SQ SCH (22:56)
[2017-09-11] MEDS ORDERED: PT OWN MED DRAWER 7, Y5N ONE ×4 (06:25→09:59)
[2017-09-11] MEDS: LIRAGLUTIDE 0.6 MG/0.1 ML PEN.INJCTR SQ SCH (06:46)
[2017-09-11] MEDS: INSULIN SLIDING SCALE (NOVOLOG) 1 VIAL SQ SCH ×2 (06:46→11:07)
[2017-09-11] MEDS ORDERED: LEVOTHYROXINE NA 50 MCG TABLET (FP) PO SCH (07:00)
--- NOTE | 2017-09-11 07:43 | DS ---
Physical Examination Vital Signs: Vital Signs Temperature 98.4 F 09/11/17 06:00 Pulse Rate 74 09/11/17 06:00 Respiratory Rate 20 09/11/17 06:00 Blood Pressure 171/90 09/11/17 06:00 O2 Sat by Pulse Oximetry (%) 97 09/10/17 21:00 Constitutional: Yes: No Distress Eyes: Yes: WNL HENT: Yes: WNL Neck: Yes: WNL Cardiovascular: Yes: WNL Respiratory: Yes: WNL Gastrointestinal: Yes: WNL Renal/: Yes: WNL Musculoskeletal: Yes: Muscle Weakness Extremities: Yes: WNL Edema: No Peripheral Pulses WNL: Yes Integumentary: Yes: WNL Wound/Incision: Yes: Clean/Dry Neurological: Yes: Confusion, Pre-Existing Deficit, Weakness ...Motor Strength: LLE, RLE Psychiatric: Yes: Other Labs: CBC, BMP 09/09/17 05:35 09/10/17 06:40 Discharge Summary Reason For Visit: HTN TIA UNCONTROLLED DIABETES Current Active Problems Acute metabolic encephalopathy (Acute) Anxiety (Acute) HTN (hypertension) (Acute) Hyperglycemia (Acute) Hyponatremia (Acute) Syncope (Acute) TIA (transient ischemic attack) (Acute) Thyroid disease (Acute) Uncontrolled diabetes mellitus (Acute) Dementia/infarct Procedures: Principal: mri brain Other Procedures: ct head/echo Hospital Course: admitted acute CA with Metabolic Encephalopathy, hyponatremia uncontrolled DM hyperglycemia, confusion,Neurology/endocrine/cardiology workup, stabilized, will need snf for rehab/conditioning. Must see cardiology 1 month for possible embolic cardiac event. - Instructions Diet, Activity, Other Instructions: must cardiology Dr Fitzgerald in 1 month for possible cardiac embolic event Diabetic/low sodium diet Disposition: [facility] - Home Medications Comprehensive Discharge Medication List: Ambulatory Orders Memantine HCl [Namenda -] 7 mg PO DAILY 05/22/16 Aspirin [Aspirin EC] 81 mg PO DAILY 08/17/17 Donepezil HCl [Aricept -] 5 mg PO DAILY 08/17/17 Linaclotide [Linzess] 145 mcg PO DAILY 08/17/17 Aspirin [ASA -] 81 mg PO DAILY #0 tab 09/11/17 Atorvastatin Ca [Lipitor] 20 mg PO HS tablet 09/11/17 Fluticasone Prop 0.05% Nasal [Flonase -] 1 puff IN BID #0 spray 09/11/17 Heparin - 5,000 unit SQ BID #0 vial 09/11/17 Hydroxyzine HCl [Atarax -] 25 mg PO DAILY tablet 09/11/17 Insulin (Levemir) [Levemir Vial] 35 units SQ ACBK ml 09/11/17 Insulin (Levemir) [Levemir Vial] 45 units SQ ACBK ml 09/11/17 Insulin Sliding Scale [Novolog Vial Sliding Scale -] 1 vial SQ ACHS units 09/11 Insulin Sliding Scale [Novolog Vial Sliding Scale -] 1 vial SQ ACHS units 09/11 Levothyroxine [Synthroid -] 50 mcg PO DAILY@0700 tablet 09/11/17 Metformin HCl 500 mg PO BID #0 tab 09/11/17 Valsartan [Diovan] 160 mg PO DAILY tablet 09/11/17
[2017-09-11 09:33] VITALS: BP 172/99; PULSE 86; TEMP 99
[2017-09-11] MEDS: DONEPEZIL HCL 5 MG TABLET (FP) PO SCH (09:43)
[2017-09-11] MEDS: ASPIRIN COATED 81 MG TABLET.EC PO SCH (09:43)
[2017-09-11] MEDS: LORATADINE 10 MG TABLET PO SCH (09:43)
[2017-09-11] MEDS: HEPARIN NA (PORCINE) 5,000 UNITS/ML 1ML VIAL SQ SCH (09:44)
[2017-09-11] MEDS: VALSARTAN 160 MG TABLET (UD) PO SCH (09:51)
--- NOTE | 2017-09-11 10:09 | PN ---
Progress Note (short form) - Note Progress Note: Neurology History of Present Illness The patient is a 82 year old female, with a significant past medical history of HTN and insulin-dependent diabetes who presents to the ED s/p altered mental status. Patients daughter reports she visited the patient the day of admission and the patient was confused and not acting like herself. As per daughter, the patient is finishing her sentences and is very forgetful. Daughter states the patients blood sugar level was 582 and lowered to 508 an hour later secondary to taking metformin and novolog. CT head completed and did not show acute changes. 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 Not TPA candidate as she was out of window. Given distribution, there is concern for embolic phenomenon, though size could also indicate hypertensive. When asked if she takes ASA, she reports she takes it occasionally and does not seem to be daily compliant. Instructed her it would be necessary to take daily for CVA prevention. Endo notes also reviewed and Diabetes management ongoing. CD reviewed and did not show hemodynamic stenosis. Echo completed and reviewed, defer to PCP and Cardiology. Patient for discharge today. Active Medications Aspirin (Ecotrin -) 81 mg PO DAILY [facility] Last Admin: 09/11/17 09:43 Dose: 81 mg Atorvastatin Calcium (Lipitor -) 20 mg PO HS [facility] Last Admin: 09/10/17 22:13 Dose: 20 mg Donepezil HCl (Aricept -) 5 mg PO DAILY [facility] Last Admin: 09/11/17 09:43 Dose: 5 mg Heparin Sodium (Porcine) (Heparin -) 5,000 unit SQ BID [facility] Last Admin: 09/11/17 09:44 Dose: 5,000 unit Hydroxyzine HCl (Atarax -) 25 mg PO DAILY [facility] Last Admin: 09/10/17 09:54 Dose: 25 mg Insulin Aspart (Novolog Vial Sliding Scale -) 1 vial SQ ACHS [facility] PRN Reason: Protocol Last Admin: 09/11/17 06:46 Dose: 7 units Insulin Detemir (Levemir Vial) 10 units SQ HS [facility] Last Admin: 09/10/17 22:16 Dose: 10 units Insulin Detemir (Levemir Vial) 45 units SQ ACBK [facility] Last Admin: 09/11/17 06:46 Dose: 45 units Levothyroxine Sodium (Synthroid -) 50 mcg PO DAILY@0700 [facility] Last Admin: 10/26/17 06:46 Dose: 50 mcg Liraglutide (Victoza -) 1.8 mg SQ DAILY@0700 [facility] Last Admin: 09/11/17 06:46 Dose: 1.8 mg Loratadine (Claritin -) 10 mg PO DAILY [facility] Last Admin: 09/11/17 09:43 Dose: 10 mg Non-Formulary Medication (Azilsartan Medoxomil [Edarbi]) 80 mg PO DAILY [facility] Non-Formulary Medication (Linaclotide [Linzess]) 145 mcg PO DAILY [facility] Namenda Xr 7 Mg Tablet - Patient Own Med 7 each PO DAILY [facility] Valsartan (Diovan -) 160 mg PO DAILY [facility] Last Admin: 09/11/17 09:51 Dose: 160 mg *Physical Exam Vital Signs Period Temp Pulse Resp BP Sys/Persaud Pulse Ox Last 24 Hr 97.9 F-99.0 F 74-86 18-20 140-172/69-99 97 Physical Exam: GENERAL: Well developed, well nourished. Awake and alert. No acute distress. HEENT: Normocephalic, atraumatic. PERRLA, EOMI. No conjunctival pallor. Sclera are non- icteric. Moist mucous membranes. Oropharynx is clear. NECK: Supple. Full ROM. No JVD. Carotid pulses 2+ and symmetric, without bruits. No thyromegaly. No lymphadenopathy. CARDIOVASCULAR: Regular rate and rhythm. No murmurs, rubs, or gallops. Distal pulses are 2+ and symmetric. PULMONARY: No evidence of respiratory distress. Lungs clear to auscultation bilaterally. No wheezing, rales or rhonchi. ABDOMINAL: Soft. Non-tender. Non-distended. No rebound or guarding. No organomegaly. Normoactive bowel sounds. MUSCULOSKELETAL Normal range of motion at all joints. No bony deformities or tenderness. No CVA tenderness. EXTREMITIES: No cyanosis. No clubbing. No edema. No calf tenderness. SKIN: Warm and dry. Normal capillary refill. No rashes. No jaundice. NEUROLOGICAL: + Confused, altered mental status, no gross focal neuro deficits, no facial droop, no extremity weakness. Cranial nerves 2-12 intact. No deficits to light touch and temperature in face, upper extremities and lower extremities. No motor deficits in the in face, upper extremities and lower extremities. Normoreflexic in the upper and lower extremities. Normal speech. Toes are down-going bilaterally. Gait is normal without ataxia. PSYCHIATRIC: Cooperative. Good eye contact. Appropriate mood and affect. CBCD WBC 6.3 K/mm3 (4.0-10.0) 09/09/17 05:35 RBC 4.75 M/mm3 (3.60-5.2) 09/09/17 05:35 Hgb 13.4 GM/dL (10.7-15.3) 09/09/17 05:35 Hct 39.8 % (32.4-45.2) 09/09/17 05:35 MCV 83.7 fl (80-96) 09/09/17 05:35 MCHC 33.7 g/dl (32.0-36.0) 09/09/17 05:35 RDW 14.1 % (11.6-15.6) 09/09/17 05:35 Plt Count 264 K/MM3 (134-434) 09/09/17 05:35 MPV 7.7 fl (7.5-11.1) 09/09/17 05:35 CMP Sodium 137 mmol/L (136-145) 09/10/17 06:40 Potassium 3.9 mmol/L (3.5-5.1) 09/10/17 06:40 Chloride 103 mmol/L (98-107) 09/10/17 06:40 Carbon Dioxide 26 mmol/L (21-32) 09/10/17 06:40 Anion Gap 8 (8-16) 09/10/17 06:40 BUN 19 mg/dL (7-18) H D 09/10/17 06:40 Creatinine 0.8 mg/dL (0.55-1.02) 09/10/17 06:40 Creat Clearance w eGFR > 60 (>60) 09/09/17 05:35 Calcium 8.7 mg/dL (8.5-10.1) 09/10/17 06:40 Total Bilirubin 0.5 mg/dL (0.2-1.0) D 09/09/17 05:35 AST 28 U/L (15-37) D 09/09/17 05:35 ALT 32 U/L (12-78) 09/09/17 05:35 Alkaline Phosphatase 93 U/L (45-117) 09/09/17 05:35 Total Protein 7.7 g/dl (6.4-8.2) 09/09/17 05:35 Albumin 3.1 g/dl (3.4-5.0) L 09/09/17 05:35 - RADIOLOGY Radiograph Interpretation: EXAM: CT HEAD WITHOUT CONTRAST IMPRESSION: No acute brain parenchymal abnormality. No hemorrhage, mass or acute territorial infarct. Age-related involutional changes and minimal chronic small vessel ischemic changes. Clear visualized paranasal sinuses. Visualized mastoid air cells clear. 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 CD without HD stenosis Echo completed and reviewed Plan: 82 year old female, with a significant past medical history of HTN and insulin- dependent diabetes who presents to the ED s/p altered mental status. Patients daughter reports she visited the patient the day of admission and the patient was confused and not acting like herself. As per daughter, the patient is finishing her sentences and is very forgetful. Daughter states the patients blood sugar level was 582 and lowered to 508 an hour later secondary to taking metformin and novolog. CT head completed and did not show acute changes. 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 CD reviewed Echo reviewed, Defer to cardiology and PCP Daily compliance to ASA needed to prevent CVA Endo notes also reviewed and Diabetes management ongoing. Continue IV/by mouth hydration. Close monitoring of glucose and treatment of hyperglycemia. unclear if patient was noncompliant of her glucose medications. Can continue Namziric and dementia medications as well. Blood pressure control goal range less than 160/90.
[2017-09-11] MEDS: hydrOXYzine HCL 25 MG TABLET (FP) PO SCH (11:20)
[2017-09-12 16:29] LABS: ALBUMIN FOR UPE 72.6 % (.); GAMMA GLOBULIN % 12.8 % (.); M-SPIKE, % Not Observed % (Not Observed)
== END 2017-09-11 11:14 | DRG 64 ==
LOC: JER 19:34 → JERBED 09-08 02:38 → J4W 09-08 15:20
PROVIDERS: ADMIT Family Medicine; ATTEND Family Medicine
DX: I63.9 Cerebral infarction, unspecified (principal); G93.41 Metabolic encephalopathy; E87.1 Hypo-osmolality and hyponatremia; E11.22 Type 2 diabetes mellitus with diabetic chronic kidney disease; I12.9 Hypertensive chronic kidney disease with stage 1 through stage 4 chronic kidney disease, or unspecified chronic kidney disease; E11.65 Type 2 diabetes mellitus with hyperglycemia; N18.9 Chronic kidney disease, unspecified; I25.10 Atherosclerotic heart disease of native coronary artery without angina pectoris; Z79.4 Long term (current) use of insulin; G62.9 Polyneuropathy, unspecified; K21.9 Gastro-esophageal reflux disease without esophagitis; F41.9 Anxiety disorder, unspecified; G24.01 Drug induced subacute dyskinesia; E07.9 Disorder of thyroid, unspecified; E78.5 Hyperlipidemia, unspecified
CPT/HCPCS: 36415; 70450-TC; 70551-TC; 71010-TC; 80048; 80053; 80061; 81003; 81015; 82009; 82550; 82553; 82570; 82803; 83036; 83605; 83721; 83935; 84156; 84157; 84300; 84484; 85025; 85027; 85610; 85730; 86850; 86900; 86901; 87040; 87086; 87804; 93005; 93010; 93306-TC; 93880-TC; 97116-GP; 97161-GP; 99283-25; J1644

== ENCOUNTER 2018-12-09 00:42 | Emergency (ER) | payer OTHER ==
[2018-12-09] MEDS ORDERED: ONDANSETRON 4 MG/2 ML VIAL ONE (00:50)
[2018-12-09 01:32] VITALS: TEMP 98.8; BMI 29.2
[2018-12-09 02:26] VITALS: BP 160/81; PULSE 85
[2018-12-09] MEDS ORDERED: SODIUM CHLORIDE 1,000 ML IV STA (02:29)
--- NOTE | 2018-12-09 02:29 | PDOC ---
History of Present Illness - General Chief Complaint: Blood Sugar Problem Stated Complaint: HYPERTENSIVE,HIGH SUGAR Time Seen by Provider: 12/09/18 02:28 History Source: Patient - History of Present Illness Initial Comments: 12/09/18 03:28 83 year old female history of dementia,HTN and insulin-dependent diabetes as per patient two extra dose of aricept accidentally tonight prior to bedtime. patient since then has been having nausea and vomiting. patient reports slight dizziness with position changes. denies abdominal pain, chest pain. family reports that her blood sugar at home is high Past History - Past Medical History Allergies/Adverse Reactions: Allergies Allergy/AdvReac Type Severity Reaction Status Date / Time shellfish derived Allergy Verified 12/09/18 01:32 Home Medications: Ambulatory Orders Memantine HCl [Namenda -] 7 mg PO DAILY 05/22/16 Aspirin [Aspirin EC] 81 mg PO DAILY 08/17/17 Donepezil HCl [Aricept -] 5 mg PO DAILY 08/17/17 Linaclotide [Linzess] 145 mcg PO DAILY 08/17/17 Aspirin [ASA -] 81 mg PO DAILY #0 tab 09/11/17 Atorvastatin Ca [Lipitor] 20 mg PO HS tablet 09/11/17 Buspirone HCl [Buspar -] 10 mg PO BID #60 tablet 09/11/17 Fluticasone Prop 0.05% Nasal [Flonase -] 1 puff IN BID #0 spray 09/11/17 Heparin - 5,000 unit SQ BID #0 vial 09/11/17 Insulin (Levemir) [Levemir Vial] 35 units SQ ACBK ml 09/11/17 Insulin (Levemir) [Levemir Vial] 45 units SQ ACBK ml 09/11/17 Insulin Sliding Scale [Novolog Vial Sliding Scale -] 1 vial SQ ACHS units 09/11 Insulin Sliding Scale [Novolog Vial Sliding Scale -] 1 vial SQ ACHS units 09/11 Levothyroxine [Synthroid -] 50 mcg PO DAILY@0700 tablet 09/11/17 Valsartan [Diovan] 160 mg PO DAILY tablet 09/11/17 hydrOXYzine HCL [Atarax -] 25 mg PO DAILY tablet 09/11/17 metFORMIN HCL [Metformin HCl] 500 mg PO BID #0 tab 09/11/17 Anemia: No Asthma: No Cancer: No Cardiac Disorders: No CVA: No COPD: No CHF: No Dementia: No Diabetes: Yes GI Disorders: No Disorders: No HTN: Yes Hypercholesterolemia: No Liver Disease: No Psychiatric Problems: Yes (anxiety) Seizures: No Thyroid Disease: Yes - Surgical History Abdominal Surgery: No Appendectomy: No Cardiac Surgery: No Cholecystectomy: Yes Lung Surgery: No Neurologic Surgery: No Orthopedic Surgery: No - Immunization History Immunization Up to Date: Yes - Suicide/Smoking/Psychosocial Hx Smoking History: Never smoked Have you smoked in the past 12 months: No Information on smoking cessation initiated: No Hx Alcohol Use: No Drug/Substance Use Hx: No Substance Use Type: None *Physical Exam - Vital Signs Last Vital Signs Temp Pulse Resp BP Pulse Ox 98.8 F 85 18 160/81 100 12/09/18 00:42 12/09/18 02:25 12/09/18 02:25 12/09/18 02:25 12/09/18 02:25 - Physical Exam General Appearance: Yes: Appropriately Dressed Respiratory/Chest: positive: Lungs Clear, Normal Breath Sounds Cardiovascular: positive: Regular Rhythm, Regular Rate Gastrointestinal/Abdominal: positive: Normal Bowel Sounds, Soft. negative: Tender Extremity: positive: Normal Capillary Refill, Normal Inspection Integumentary: positive: Normal Color, Dry Neurologic: positive: Fully Oriented, Alert, Normal Mood/Affect Moderate Sedation - Procedure Monitoring Vital Signs: Procedure Monitoring Vital Signs Temperature 98.8 F 12/09/18 00:42 Pulse Rate 85 12/09/18 02:25 Respiratory Rate 18 12/09/18 02:25 Blood Pressure 160/81 12/09/18 02:25 O2 Sat by Pulse Oximetry (%) 100 12/09/18 02:25 ED Treatment Course - LABORATORY CBC & Chemistry Diagram: 12/09/18 05:09 12/09/18 03:40 Medical Decision Making - Medical Decision Making 12/09/18 06:17 patient did not take her bedtime insulin last night. patient is not vomiting in the ED. tolerating IVF and PO water. tolerated toast. will d/.c home. strict return precautions reviewed with patient and family 12/09/18 06:54 *DC/Admit/Observation/Transfer Diagnosis at time of Disposition: Hyperglycemia, Lightheadedness HTN (hypertension) Qualifiers: Hypertension type: unspecified Qualified Code(s): I10 - Essential (primary) hypertension - Discharge Dispostion Condition at time of disposition: Fair - Referrals - Patient Instructions Printed Discharge Instructions: DI for Hyperglycemia -- Adult Additional Instructions: drink plenty of fluids start a bland diet. follow up with your doctor as soon as possible. - Post Discharge Activity
[2018-12-09 03:03] LABS: ALBUMIN 3.8 g/dl (3.4-5.0); ALK PHOS 106 U/L (45-117); ANION GAP 8 MMOL/L (8-16); BILIRUBIN,TOTAL 0.3 mg/dL (0.2-1); BLOOD UREA NITROGEN 20 mg/dL (7-18); CHLORIDE 92 mmol/L (98-107); CO2 29 mmol/L (21-32); CREATININE 0.9 mg/dL (0.55-1.3); POTASSIUM 3.9 mmol/L (3.5-5.1); SGOT/AST 17 U/L (15-37); SGPT/ALT 27 U/L (13-61); SODIUM 130 mmol/L (136-145); TOT PROT 8.8 g/dl (6.4-8.2)
[2018-12-09 03:16] LABS: GLUCOSE,RANDOM 483 mg/dL (74-106)
--- NOTE | 2018-12-09 03:32 | PDOC ---
*Physical Exam - Vital Signs Last Vital Signs Temp Pulse Resp BP Pulse Ox 98.8 F 85 18 160/81 100 12/09/18 00:42 12/09/18 02:25 12/09/18 02:25 12/09/18 02:25 12/09/18 02:25 ED Treatment Course - LABORATORY CBC & Chemistry Diagram: 12/09/18 05:09 12/09/18 03:40 - ADDITIONAL ORDERS Additional order review: Laboratory Results 12/09/18 02:30 Sodium 130 L Potassium 3.9 Chloride 92 L Carbon Dioxide 29 Anion Gap 8 BUN 20 H Creatinine 0.9 Creat Clearance w eGFR 59.94 Random Glucose 483 H* Calcium 9.0 Total Bilirubin 0.3 AST 17 ALT 27 Alkaline Phosphatase 106 Total Protein 8.8 H Albumin 3.8 12/09/18 02:30 RBC Cancelled MCV Cancelled MCHC Cancelled RDW Cancelled MPV Cancelled Neutrophils % Cancelled Lymphocytes % Cancelled Monocytes % Cancelled Eosinophils % Cancelled Basophils % Cancelled Medical Decision Making - Medical Decision Making 12/09/18 03 Patient seen by the advanced practice provider under my direct supervision. Ancillary testing reviewed as necessary. I agree with plan as outlined by the advanced practice provider. *DC/Admit/Observation/Transfer Diagnosis at time of Disposition: Hyperglycemia, Lightheadedness HTN (hypertension) Qualifiers: Hypertension type: unspecified Qualified Code(s): I10 - Essential (primary) hypertension - Discharge Dispostion Condition at time of disposition: Fair - Referrals - Patient Instructions Printed Discharge Instructions: DI for Hyperglycemia -- Adult Additional Instructions: drink plenty of fluids start a bland diet. follow up with your doctor as soon as possible. - Post Discharge Activity
[2018-12-09] MEDS ORDERED: METOCLOPRAMIDE HCL INJECTION 10 MG/2 ML VIAL IVPB ONE (03:40)
[2018-12-09 03:41] LABS: VENOUS PC02 52.9 mmHg (38-52); VENOUS PH 7.31 (7.32-7.42); VENOUS PO2 26.6 mmHg (28-48)
[2018-12-09] MEDS ORDERED: SODIUM CHLORIDE 1,000 ML IV SCH (03:45)
[2018-12-09 04:03] LABS: URINE APPEARANCE CLEAR; URINE BILIRUBIN NEGATIVE (<2.0 mg/dL); URINE COLOR COLORLESS; URINE GLUCOSE (UA) 3+ (NEGATIVE); URINE KETONE TRACE (NEGATIVE); URINE LEUK ESTERASE NEGATIVE (NEGATIVE); URINE NITRITE NEGATIVE (NEGATIVE); URINE PROTEIN 2+ (NEGATIVE); URINE UROBILINOGEN NEGATIVE mg/dL (0.2-1.0)
[2018-12-09 04:06] LABS: INR 0.92 (0.83-1.09); PROTHROMBIN TIME (PATIENT) 10.9 SEC (9.7-13.0)
[2018-12-09 04:09] LABS: ACTIVATED PTT 31.4 SECONDS (25.2-36.5)
[2018-12-09 04:51] LABS: ANION GAP 10 MMOL/L (8-16); BLOOD UREA NITROGEN 19 mg/dL (7-18); CALCIUM 8.6 mg/dL (8.5-10.1); CHLORIDE 95 mmol/L (98-107); CO2 27 mmol/L (21-32); CREATININE 0.9 mg/dL (0.55-1.3); POTASSIUM 3.8 mmol/L (3.5-5.1); SODIUM 132 mmol/L (136-145)
[2018-12-09 04:53] LABS: GLUCOSE,RANDOM 466 mg/dL (74-106)
[2018-12-09 05:15] LABS: EPI CELLS RARE /HPF (FEW); URINE HYALINE CAST 1 /lpf
[2018-12-09 06:01] LABS: BASO % 0.3 % (0-2.0); HEMATOCRIT 38.4 % (32.4-45.2); HEMOGLOBIN 12.8 GM/dL (10.7-15.3); MCH 27.9 pg (25.7-33.7); MCHC 33.2 g/dl (32.0-36.0); MEAN CELL VOLUME 83.8 fl (80-96); MEAN PLT VOLUME 7.8 fl (7.5-11.1); MONO % 1.9 % (3.8-10.2); NEUT % 89.8 % (42.8-82.8); PLATELET COUNT 305 K/MM3 (134-434); RBC 4.58 M/mm3 (3.60-5.2); RDW 14.5 % (11.6-15.6); WHITE BLOOD COUNT 11.6 K/mm3 (4.0-10.0)
[2018-12-09] MEDS ORDERED: INSULIN REGULAR HUMAN 100 UNITS/ML *VIAL SQ ONE (06:11)
[2018-12-09] MEDS ORDERED: INSULIN REGULAR HUMAN 100 UNITS/ML *VIAL ONE (06:17)
== END 2018-12-09 07:16 | disposition home or self-care (01) ==
LOC: JER 00:42
PROC: 3E013VG Introduction of Insulin into Subcutaneous Tissue, Percutaneous Approach (ICD-10-PCS; principal; 2018-12-09)
PROC: 3E033GC Introduction of Other Therapeutic Substance into Peripheral Vein, Percutaneous Approach (ICD-10-PCS; 2018-12-09)
PROC: 3E0337Z Introduction of Electrolytic and Water Balance Substance into Peripheral Vein, Percutaneous Approach (ICD-10-PCS; 2018-12-09)
DX: E11.65 Type 2 diabetes mellitus with hyperglycemia (principal); I10 Essential (primary) hypertension; R42 Dizziness and giddiness; Z79.4 Long term (current) use of insulin; F41.9 Anxiety disorder, unspecified
CPT/HCPCS: 36415; 80048; 80053; 81003; 81015; 82009; 82550; 82803; 82962; 83605; 84484; 85025; 85610; 85730; 96361; 96372; 96374; 99283-25; J7030

== ENCOUNTER 2019-05-27 13:42 | Inpatient (IN) | payer OTHER ==
--- NOTE | 2019-05-27 13:52 | PDOC ---
Rapid Medical Evaluation Time Seen by Provider: 05/27/19 13:48 Medical Evaluation: Allergies Allergy/AdvReac Type Severity Reaction Status Date / Time shellfish derived Allergy Verified 12/09/18 01:32 05/27/19 13:48 I have performed a brief in-person evaluation of this patient. The patient presents with a chief complaint of: sent by podiatry for non- healing right foot diabetic wound Pertinent physical exam findings: wound to right medial 1st MTP. No erythema present. I have ordered the following: labs, urine, ekg, CXR The patient will proceed to the ED for further evaluation. Discharge Disposition - Diagnosis Diabetic foot - Referrals - Patient Instructions - Post Discharge Activity
--- NOTE | 2019-05-27 14:24 | PDOC ---
History of Present Illness - General Chief Complaint: Wound Stated Complaint: WOUND Time Seen by Provider: 05/27/19 13:48 - History of Present Illness Initial Comments: Ms. Pierce is a 83F with PMH of DM, HTN, TIA, sent in by Dr. Perla for evaluation and admission of non-healing right foot ulcer. She reports that the ulcer on her right foot started around 2 weeks ago. Denies that it has been expanding, denies fever, cough, shortness of breath. Reports mild discomfort over the ulcer, denies rash or skin changes. Denies weakness or difficulty walking. Past History - Past Medical History Allergies/Adverse Reactions: Allergies Allergy/AdvReac Type Severity Reaction Status Date / Time shellfish derived Allergy Verified 05/27/19 14:00 Home Medications: Ambulatory Orders Aspirin [Aspirin EC] 81 mg PO DAILY 08/17/17 Donepezil HCl [Aricept -] 5 mg PO DAILY 08/17/17 Buspirone HCl [Buspar -] 10 mg PO BID #60 tablet 09/11/17 metFORMIN HCL [Metformin HCl] 500 mg PO BID #0 tab 09/11/17 Clopidogrel Bisulfate [Plavix] 75 mg PO DAILY 05/27/19 Insulin Aspart [Novolog] 20 unit SQ BID 05/27/19 Insulin Degludec [Tresiba] 40 unit SQ DAILY 05/27/19 Quetiapine Fumarate [Seroquel -] 25 mg PO HS 05/27/19 Trazodone HCl 150 mg PO DAILY 05/27/19 Anemia: No Asthma: No Cancer: No Cardiac Disorders: No CVA: No COPD: No CHF: No Dementia: No Diabetes: Yes GI Disorders: No Disorders: No HTN: Yes Hypercholesterolemia: No Liver Disease: No Psychiatric Problems: Yes (anxiety) Seizures: No Thyroid Disease: Yes - Surgical History Abdominal Surgery: No Appendectomy: No Cardiac Surgery: No Cholecystectomy: Yes Lung Surgery: No Neurologic Surgery: No Orthopedic Surgery: No - Immunization History Immunization Up to Date: Yes - Suicide/Smoking/Psychosocial Hx Smoking History: Never smoked Have you smoked in the past 12 months: No Information on smoking cessation initiated: No Hx Alcohol Use: No Drug/Substance Use Hx: No Substance Use Type: None Review of Systems - Review of Systems Able to Perform ROS?: Yes Is the patient limited Thai proficient: Yes Constitutional: Yes: See HPI. No: Chills, Diaphoresis, Fever, Night Sweats HEENTM: Yes: See HPI. No: Throat Pain, Mouth Pain, Difficulty Swallowing Respiratory: Yes: See HPI. No: Cough, Shortness of Breath, Wheezing Cardiac (ROS): Yes: See HPI. No: Chest Pain, Edema, Palpitations ABD/GI: Yes: See HPI. No: Abdominal Distended, Nausea, Vomiting : Yes: See HPI. No: Burning, Dysuria Musculoskeletal: Yes: See HPI, Joint Pain (right great toe ), Joint Swelling ( right MCP joint ). No: Back Pain Integumentary: Yes: See HPI. No: Erythema Neurological: Yes: See HPI. No: Headache, Weakness, Ataxia *Physical Exam - Vital Signs Last Vital Signs Temp Pulse Resp BP Pulse Ox 98.5 F 85 18 175/75 H 100 05/27/19 13:55 05/27/19 13:55 05/27/19 13:55 05/27/19 13:55 05/27/19 13:55 - Physical Exam General Appearance: Yes: Nourished, Appropriately Dressed HEENT: positive: EOMI, SHELDON, Normal ENT Inspection, Pharynx Normal Neck: positive: Trachea midline, Supple. negative: Tender, Normal Thyroid, Rigid Respiratory/Chest: positive: Chest Tender, Lungs Clear, Normal Breath Sounds. negative: Respiratory Distress, Accessory Muscle Use Cardiovascular: positive: Regular Rhythm, Regular Rate Vascular Pulses: Dorsalis-Pedis (R): 2+, Doralis-Pedis (L): 2+ Gastrointestinal/Abdominal: positive: Soft. negative: Tender Musculoskeletal: positive: Normal Inspection. negative: CVA Tenderness Extremity: positive: Normal Capillary Refill, Normal Inspection, Normal Range of Motion, Tender (right great toe ), Swelling (right MCP joint, 3cm x 4cm). negative: Cyanosis, Calf Tenderness, Erythema Integumentary: positive: Normal Color, Dry, Warm. 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 No fever, no cough, no SOB, no pain or erythema. Swelling is localized. We'll obtain EKG, CBC, CMP, CXR, UA, wound culture, lactic acid, and right foot XR to r/o osteo. Plan for admission per design chief Dr. Perla. EKG shows NSR 79 bpm. Normal axis and intervals. No ST elevations. 05/27/19 16:22 1g vanc and 4.5g zosyn ordered. 05/27/19 16:40 WBC wnl at 7.8 05/27/19 17:26 Pt admited to the hospitalist service. *DC/Admit/Observation/Transfer Diagnosis at time of Disposition: Diabetic foot - Discharge Dispostion Condition at time of disposition: Stable Decision to Admit order: Yes - Referrals - Patient Instructions - Post Discharge Activity
[2019-05-27] MEDS ORDERED: VANCOMYCIN 1 GM in D5W (PRE-DOCKED) 1,000 MG/250 ML IVPB ONE (16:20)
[2019-05-27] MEDS ORDERED: PIPERACILLIN/TAZOB 4.5 GM 4.5 GM in DEXTROSE 5%-WATER 100 ML IVPB ONE (16:21)
[2019-05-27 16:22] LABS: ALBUMIN 3.4 g/dl (3.4-5.0); BILIRUBIN,TOTAL 0.2 mg/dL (0.2-1); CALCIUM 8.8 mg/dL (8.5-10.1); POTASSIUM 4.7 mmol/L (3.5-5.1); TOT PROT 8.2 g/dl (6.4-8.2)
[2019-05-27 16:33] LABS: BASO % 0.4 % (0-2.0); EOS % 2.1 % (0-4.5); EPI CELLS 2.4 /HPF (0-5/HPF); HEMATOCRIT 32.3 % (32.4-45.2); HEMOGLOBIN 10.8 GM/dL (10.7-15.3); HYALINE CASTS 0 /lpf (0-8); LYMPH % 28.2 % (8-40); MCH 27.6 pg (25.7-33.7); MCHC 33.4 g/dl (32.0-36.0); MEAN CELL VOLUME 82.5 fl (80-96); MEAN PLT VOLUME 7.6 fl (7.5-11.1); MONO % 6.2 % (3.8-10.2); NEUT % 63.1 % (42.8-82.8); PLATELET COUNT 319 K/MM3 (134-434); RBC 3.91 M/mm3 (3.60-5.2); RDW 15.3 % (11.6-15.6); URINE APPEARANCE CLEAR; URINE BACTERIA 82.1 /hpf (NEGATIVE); URINE BILIRUBIN NEGATIVE (NEGATIVE); URINE COLOR YELLOW; URINE GLUCOSE (UA) TRACE (NEGATIVE); URINE KETONE NEGATIVE (NEGATIVE); URINE LEUK ESTERASE 2+ (NEGATIVE); URINE NITRITE NEGATIVE (NEGATIVE); URINE PROTEIN 2+ (NEGATIVE); URINE RBC 2 /hpf (0-4); URINE UROBILINOGEN 0.2 mg/dL (0.2-1.0); URINE WBC 16 /hpf (0-5); WHITE BLOOD COUNT 7.8 K/mm3 (4.0-10.0)
--- NOTE | 2019-05-27 17:01 | EKG ---
Test Reason : Blood Pressure : / mmHG Vent. Rate : 079 BPM Atrial Rate : 079 BPM P-R Int : 188 ms QRS Dur : 082 ms QT Int : 410 ms P-R-T Axes : 045 010 082 degrees QTc Int : 470 ms NORMAL SINUS RHYTHM POSSIBLE LEFT ATRIAL ENLARGEMENT BORDERLINE ECG WHEN COMPARED WITH ECG OF 08-SEP-2017 03:43, NO SIGNIFICANT CHANGE WAS FOUND Confirmed by HUMPHREY BOWLING MD ([id number]) on 05/27/2019 5:01:46 PM Referred By: Confirmed By:HUMPHREY BOWLING MD
--- NOTE | 2019-05-27 17:01 | PDOC ---
Documentation entered by Elvis Sung SCRIBE, acting as scribe for Allegra Johnson MD. Allegra Johnson MD: This documentation has been prepared by the Ana Lilia guerrero Elijah, SCRIBE, under my direction and personally reviewed by me in its entirety. I confirm that the documentation accurately reflects all work, treatment, procedures, and medical decision making performed by me. Attending Attestation - Resident Resident Name: HyltonAddy - ED Attending Attestation I have performed the following: I have examined & evaluated the patient, The case was reviewed & discussed with the resident, I agree w/resident's findings & plan, Exceptions are as noted - HPI HPI: 05/27/19 16:19 Patient is an 83 year old female with a significant past medical history of DM, HTN, TIA, who presents to the ED (sent in by Dr. Perla) with a non-healing ulcer in her R foot. The patient completed a course of Clindamycin, followed by Kelflex as an outpt with minimal improvement to redness of the foot ulcer. Dr. Lamas sent her to the ED for IV abx. Denies difficulty walking, cough, fever, nausea, chills, CP, SOB, headache, focal weakness/numbness Allergies: Shellfish derived PCP: Dr. Fox - Physicial Exam PE: 05/27/19 16:20 agree with resident exam - Medical Decision Making 05/27/19 16:44 OILER BANDER Luciano Ricardo paged at 4:00pm, 4:20pm, 4:40 pm No answer, will admit to hospitalist 05/27/19 16:58 83yo F sent to the ED for IV abx, admission by Dr. Perla after she failed outpt Clinda and Keflex Of note, pt had MRI of her foot 05/02/19 which showed possible cystic change vs osteo to first metatarsal head labs wnl thus far Pt covered here with Vanc/Zosyn Anticipate admission 05/27/19 17:12 UA+, but pt has not UTI sxs, will hold off on tx pending UCx Labs with elevated ESR [address] Sparks, pt accepted for admission Case discussed in detail with admitting physician including history, physical exam and ancillary studies. Admitting physician has assumed care for the patient, will follow all pending diagnostics and will complete the evaluation and treatment. Heart Score/ECG Review #1 05/27/19 17:02 Twelve-lead EKG was performed and reviewed by me. Normal sinus rhythm, rate 79. Normal axis and intervals. No ST elevations.
[2019-05-27] MEDS ORDERED: PIPERACILLIN/TAZOB 4.5 GM 4.5 GM/100 ML BAG IVPB ONE (17:12)
[2019-05-27] MEDS ORDERED: VANCOMYCIN 1 GRAM (PRE-DOCKED) 1,000 MG/250 ML BAG IVPB ONE (17:13)
[2019-05-27 17:15] LABS: ERYTHROCYTE SEDIMENTATION RATE 91 mm/hr (0-30)
--- NOTE | 2019-05-27 17:35 | PN ---
Teaching Attending Note Name of Resident: Delfina Chavarria ATTENDING PHYSICIAN STATEMENT I saw and evaluated the patient. I reviewed the resident's note and discussed the case with the resident. I agree with the resident's findings and plan as documented. CC: my foot HPI: Ms Pierce is a pleasant 83 year old female who comes in with R infected foot. Patient is lao speaking only and history comes from her daughter who is at the bedside. Approximately 1 month ago she developed a bunion on her R foot. It became red and infected and she was seen by Dr Van. She was referred and started on clindamycin. It did not clear so she was referred to wound care and seen by podiatry. She finished a full course of keflex but still did not improve. She was sent in for further treatment. Aside from pain in her R foot she is without complaint. She denies fevers, chills, lightheadedness, dizziness, passing out, chest pain or pressure, shortness of breath, nausea, vomiting, diarrhea, difficulty or pain on urination, or redness or swelling of her lower extremities. PMHx: diabetes, HTN, insomnia, anxiety, dementia PSHx: cholecystectomy, All: NKDA Meds: 1. metformin 500mg bid 2. aspirin 81mg daily 3. buspar 10mg bid 4. losartan 100mg daily 5. lipitor 10mg qhs 6. plavix 75mg daily 7. seroquel 25mg daily 8. trazadone 150mg daily 9. amlodipine 10mg qhs 10. donepezil 5mg daily 11. tresiba 40 units daily 12. novolog 12 units bid (currently not needing with tresiba) SHx: patient denies tobacco, alcohol, [employer] FHx: mother with HTN and DM ROS: full review of systems obtained, as per HPI and otherwise negative OBJECTIVE: Last Vital Signs Temp Pulse Resp BP Pulse Ox 36.9 C 85 18 175/75 H 100 05/27/19 13:55 05/27/19 13:55 05/27/19 13:55 05/27/19 13:55 05/27/19 13:55 Gen: nad, obese HEENT: perrla, eomi, mmm Pulm: ctab w/o w/r/r CV: rrr w/o m/r/g Abd: +bs, s/nt/nd Ext: R foot with bunion and small crack with minimal extention, soft to touch, no fluid expressed CBC, BMP 05/27/19 15:30 05/27/19 15:30 ASSESSMENT AND PLAN: Problem List - Problems (1) Diabetic foot Assessment/Plan: -patient with both MRI and bone scan, not showing osteomyelitis -however with chronic wound that is not improving with outpatient antibiotics -given vancomycin and zosyn in the ED -will continue currently, consult ID for further adjustment -podiatry consult Code(s): E11.8 - TYPE 2 DIABETES MELLITUS WITH UNSPECIFIED COMPLICATIONS (2) Diabetes mellitus Assessment/Plan: -on tresiba 40 units daily at home -very long acting insulin -will be on a controlled diet here -start low dose levemir 10 units bid -FSBS and SSI -diabetic diet Code(s): E11.9 - TYPE 2 DIABETES MELLITUS WITHOUT COMPLICATIONS (3) HTN (hypertension) Assessment/Plan: -did not take medications this am -also must consider aspect of white coat hypertension -recheck -give home doses today -continue losartan and amlodipine, adjust as needed Code(s): I10 - ESSENTIAL (PRIMARY) HYPERTENSION Qualifiers: Hypertension type: unspecified Qualified Code(s): I10 - Essential (primary ) hypertension (4) Dementia Assessment/Plan: -continue donepezil Code(s): F03.90 - UNSPECIFIED DEMENTIA WITHOUT BEHAVIORAL DISTURBANCE (5) Anxiety Assessment/Plan: -continue buspar Code(s): F41.9 - ANXIETY DISORDER, UNSPECIFIED (6) TIA (transient ischemic attack) Assessment/Plan: -continue aspirin and plavix Code(s): G45.9 - TRANSIENT CEREBRAL ISCHEMIC ATTACK, UNSPECIFIED Qualifiers: Transient cerebral ischemia type: unspecified Qualified Code(s): G45.9 - Transient cerebral ischemic attack, unspecified
[2019-05-27] MEDS ORDERED: ACETAMINOPHEN 325 MG TABLET (FP) PO PRN (18:08)
[2019-05-27] MEDS ORDERED: PIPERACILLIN/TAZOB 3.375 GM 3.375 GM in DEXTROSE 5%-WATER - 50 ML IVPB SCH (18:30)
[2019-05-27] MEDS ORDERED: VANCOMYCIN 1,000 MG in DEXTROSE 5%-WATER - 250 ML IVPB SCH (18:30)
[2019-05-27] MEDS ORDERED: CLOPIDOGREL BISULFATE 75 MG TABLET (FP) ONE (18:43)
[2019-05-27] MEDS ORDERED: ASPIRIN 81 MG CHEWABLE TABLETS ONE (18:43)
[2019-05-27] MEDS: CLOPIDOGREL BISULFATE 75 MG TABLET (FP) PO SCH (18:55)
[2019-05-27] MEDS: ASPIRIN COATED 81 MG TABLET.EC PO SCH (18:55)
--- NOTE | 2019-05-27 18:56 | HP ---
CHIEF COMPLAINT: Non healing ulcer x 2 months PCP: Dr Van HISTORY OF PRESENT ILLNESS: Pt is an 83 yo M with PMHx of DM, HTN, TIA, presenting from wound care, after being referred by Dr Perla for non healing b/l LE diabetic ulcers. Hx was provided by pt's daughter who noted a swelling on the medial aspect of her R big toe 2 months ago, which eventually eroded into an ulcer. Pt also has an ulcer between the webs of 4th and 5th toe Pt initially received one week treatment with clindamycin from PCP, Dr Hinojosa without relief, then she was referred to Dr Neal a communication manager who did local care of the wound. The wound initially appeared to heal and almost close, then reopened. Pt was referred to the wound care Center at [facility] under Dr ePrla with recently completed a week' s course of keflex. Wound is said to be cleaned daily with betadine. No hx of fevers or chills. Pt has undergone b/l LE MRIs and bone scan which did not show evidence of osteomyelitis. Patient is reported to have uncontrolled glucose normally running in the 300s. Last week, pt had her triseba changed from 30u to 40u with better controlled sugars below 200s. Pt was referred to ED to receive iv antibiotics, after 2 failed antibiotics. 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 [employer] Pt [facility] an [facility] Smoking: Denies Alcohol: Drugs: Family History: Allergies shellfish derived Allergy (Verified 05/27/19 14:00) HOME MEDICATIONS: Home Medications Medication Instructions Recorded Aspirin [Aspirin EC] 81 mg PO DAILY 08/17/17 Donepezil HCl [Aricept -] 5 mg PO DAILY 08/17/17 Buspirone HCl [Buspar -] 10 mg PO BID #60 tablet 09/11/17 metFORMIN HCL [Metformin HCl] 500 mg PO BID #0 tab 09/11/17 Clopidogrel Bisulfate [Plavix] 75 mg PO DAILY 05/27/19 Insulin Aspart [Novolog] 20 unit SQ BID 05/27/19 Insulin Degludec [Tresiba] 40 unit SQ DAILY 05/27/19 Quetiapine Fumarate [Seroquel -] 25 mg PO HS 05/27/19 Trazodone HCl 150 mg PO DAILY 05/27/19 REVIEW OF SYSTEMS CONSTITUTIONAL: Denieschest pain, SOB, cough, easy bruising, hematuria, hematochezia, or rashes PHYSICAL EXAMINATION Vital Signs - 24 hr 05/27/19 13:55 Temperature 98.5 F Pulse Rate 85 Respiratory 18 Rate Blood Pressure 175/75 H O2 Sat by Pulse 100 Oximetry (%) Vital Signs Temp 98.7 F 05/27/19 20:24 Pulse 80 05/27/19 20:24 Resp 20 05/27/19 20:33 BP 179/87 H 05/27/19 20:24 Pulse Ox 97 05/27/19 20:33 Intake & Output 05/26/19 05/27/19 05/27/19 23:59 11:59 23:59 Weight 81.647 kg Other: Voiding Method Toilet Height 1.6 m Body Mass Index (BMI) 31.8 Weight Measurement Method Built in [facility] Weight Measurement Method Est/Stated by Patient GENERAL: Awake, alert, and fully oriented, in no acute distress. LUNGS: Breath sounds equal, clear to auscultation bilaterally. HEART: Regular rate and rhythm, normal S1 and S2 ABDOMEN: Healed vertical midline scarSoft, nontender, not distended, normoactive bowel sounds, MUSCULOSKELETAL: Normal range of motion at all joints. No bony deformities or tenderness. No CVA tenderness. LOWER EXTREMITIES: R big hallux callous on plantar surface with medial ulcer about 2mm, with surrounding callous. Surrounding fluctuance around Lhallux ulcer. Milking yielding no fluid in ulcer. L medial ulcer between webs of 4th and fifth toe, shallow, whitish no obvios pus, about 2mm. B/l mild periph edema R>L LE. Hyperpigmentation over b/l dorsum of feet NEUROLOGICAL: Cranial nerves II-XII intact. No facial droop, no lateralizing signs. Muscle strength 5/5 globally, hyporeflexia globally. Downgoing babinski. Sensation intact. Normal speech. Gait not observed CBC, BMP 05/27/19 15:30 05/27/19 15:30 Laboratory Results - last 24 hr 05/27/19 05/27/19 05/27/19 15:30 15:30 15:30 WBC 7.8 RBC 3.91 Hgb 10.8 Hct 32.3 L MCV 82.5 MCH 27.6 MCHC 33.4 RDW 15.3 Plt Count 319 MPV 7.6 Absolute Neuts (auto) 4.9 Neutrophils % 63.1 Lymphocytes % 28.2 Monocytes % 6.2 Eosinophils % 2.1 Basophils % 0.4 Nucleated RBC % 0 ESR 91 H Sodium 136 Potassium 4.7 Chloride 101 Carbon Dioxide 28 Anion Gap 6 L BUN 19.0 H Creatinine 1.0 Est GFR (CKD-EPI)AfAm 60.76 Est GFR (CKD-EPI)NonAf 52.42 Random Glucose 204 H Lactic Acid 1.5 Calcium 8.8 Total Bilirubin 0.2 AST 21 ALT 24 Alkaline Phosphatase 82 Total Protein 8.2 Albumin 3.4 Urine Color Urine Appearance Urine pH Ur Specific Waggoner Urine Protein Urine Glucose (UA) Urine Ketones Urine Blood Urine Nitrite Urine Bilirubin Urine Urobilinogen Ur Leukocyte Esterase Urine WBC (Auto) Urine RBC (Auto) Urine Casts (Auto) U Epithel Cells (Auto) Urine Bacteria (Auto) 05/27/19 15:30 WBC RBC Hgb Hct MCV MCH MCHC RDW Plt Count MPV Absolute Neuts (auto) Neutrophils % Lymphocytes % Monocytes % Eosinophils % Basophils % Nucleated RBC % ESR Sodium Potassium Chloride Carbon Dioxide Anion Gap BUN Creatinine Est GFR (CKD-EPI)AfAm Est GFR (CKD-EPI)NonAf Random Glucose Lactic Acid Calcium Total Bilirubin AST ALT Alkaline Phosphatase Total Protein Albumin Urine Color Yellow Urine Appearance Clear Urine pH 7.0 Ur Specific Waggoner 1.008 L Urine Protein 2+ H Urine Glucose (UA) Trace Urine Ketones Negative Urine Blood 1+ H Urine Nitrite Negative Urine Bilirubin Negative Urine Urobilinogen 0.2 Ur Leukocyte Esterase 2+ H Urine WBC (Auto) 16 Urine RBC (Auto) 2 Urine Casts (Auto) 0 U Epithel Cells (Auto) 2.4 Urine Bacteria (Auto) 82.1 Ambulatory Orders Aspirin [Aspirin EC] 81 mg PO DAILY 08/17/17 Donepezil HCl [Aricept -] 5 mg PO DAILY 08/17/17 Buspirone HCl [Buspar -] 10 mg PO BID #60 tablet 09/11/17 metFORMIN HCL [Metformin HCl] 500 mg PO BID #0 tab 09/11/17 Clopidogrel Bisulfate [Plavix] 75 mg PO DAILY 05/27/19 Insulin Aspart [Novolog] 20 unit SQ BID 05/27/19 Insulin Degludec [Tresiba] 40 unit SQ DAILY 05/27/19 Quetiapine Fumarate [Seroquel -] 25 mg PO HS 05/27/19 Trazodone HCl 150 mg PO DAILY 05/27/19 Losartan Potassium 10 mg PO DAILY 05/28/19 Current Medications Acetaminophen (Tylenol -) 650 mg PO Q4H PRN PRN Reason: PAIN LEVEL 1-5 Aspirin (Ecotrin -) 81 mg PO DAILY [facility] Last Admin: 05/27/19 18:55 Dose: Not Given Buspirone HCl (Buspar -) 10 mg PO BID [facility] Last Admin: 05/28/19 00:04 Dose: 10 mg Clopidogrel Bisulfate (Plavix -) 75 mg PO DAILY [facility] Last Admin: 05/27/19 18:55 Dose: Not Given Donepezil HCl (Aricept -) 5 mg PO HS [facility] Last Admin: 05/27/19 22:27 Dose: 5 mg Heparin Sodium (Porcine) (Heparin -) 5,000 unit SQ TID [facility] Last Admin: 05/27/19 22:28 Dose: 5,000 unit Vancomycin HCl 1,000 mg/ (Dextrose) 250 mls @ 200 mls/hr IVPB Q24H [facility]; Protocol Piperacillin Sod/Tazobactam (Sod 3.375 gm/ Dextrose) 50 mls @ 100 mls/hr IVPB Q8H-IV [facility]; Protocol Piperacillin Sod/Tazobactam (Sod 3.375 gm/ Dextrose) 50 mls @ 100 mls/hr IVPB Q8H-IV [facility]; Protocol Stop: 05/28/19 18:29 Last Admin: 05/28/19 01:55 Dose: 100 mls/hr Vancomycin HCl (Vancomycin (Pre-Docked)) 1,000 mg in 250 mls @ 166.667 mls/hr IVPB Q24H [facility]; Protocol Stop: 05/28/19 19:29 Insulin Aspart (Novolog Vial Sliding Scale -) 1 vial SQ ACHS [facility]; Protocol Last Admin: 05/27/19 22:29 Dose: 4 units Insulin Detemir (Levemir Vial) 10 units SQ BID@0700,2200 [facility] Last Admin: 05/27/19 22:28 Dose: 10 units Losartan Potassium (Cozaar -) 10 mg PO DAILY [facility] Quetiapine Fumarate (Seroquel -) 25 mg PO [facility] Last Admin: 05/27/19 22:27 Dose: 25 mg Trazodone HCl (Desyrel -) 150 mg PO HS [facility] Last Admin: 05/27/19 22:28 Dose: 150 mg ASSESSMENT/PLAN: Pt is an 83 yo M with PMHx of DM, HTN, TIA, presenting from wound care, after being referred by Dr Perla for non healing b/l LE diabetic ulcers. diabetic ulcers-failed outpt AB therapy, R/O OM DM, HTN, TIA bipolar disorde Cont vanc/zosyn ID consult-Dr Corey Imaging appears to r/o OM ESR/CRP Podiatry consult- wound care and decision to biopsy Pain control with tylenol Hold oral hypoglycemics levemir 10u bid ISS ACHS BGM ACHS cont ASA/plavix Cont losartan Podiatry consult- Dr Perla pending bcx, ucx, wcx seroquel/trazadone/buspirone heparin sq Monitor BP Medsurg Visit type - Emergency Visit Emergency Visit: Yes ED Registration Date: 05/27/19 Care time: The patient presented to the Emergency Department on the above date and was hospitalized for further evaluation of their emergent condition. - New Patient This patient is new to me today: Yes Date on this admission: 05/27/19 - Critical Care Critical Care patient: No ATTENDING PHYSICIAN STATEMENT I saw and evaluated the patient. I reviewed the resident's note and discussed the case with the resident. I agree with the resident's findings and plan as documented. SUBJECTIVE: OBJECTIVE: ASSESSMENT AND PLAN:
[2019-05-27 20:28] VITALS: BMI 31.8
[2019-05-27] MEDS ORDERED: amLODIPine BESYLATE 10 MG TABLET (FP) PO ONE (21:58)
[2019-05-27] MEDS: DONEPEZIL HCL 5 MG TABLET (FP) PO SCH (22:27)
[2019-05-27] MEDS: QUEtiapine FUMARATE 25 MG TABLET (FP) PO SCH (22:27)
[2019-05-27] MEDS: traZODone HCL 50 MG TABLET (FP) PO SCH (22:28)
[2019-05-27] MEDS: INSULIN (LEVEMIR) 100 UNITS/ML UNITS SQ SCH (22:28)
[2019-05-27] MEDS: HEPARIN NA (PORCINE) 5,000 UNITS/ML 1ML VIAL SQ SCH (22:28)
[2019-05-27] MEDS: INSULIN SLIDING SCALE (NOVOLOG) 1 VIAL SQ SCH (22:29)
[2019-05-27] MEDS: busPIRone HCL 10 MG TABLET (FP) PO SCH (23:20)
[2019-05-28] MEDS: busPIRone HCL 10 MG TABLET (FP) PO SCH ×3 (00:04→22:19)
[2019-05-28] MEDS ORDERED: PT OWN MED DRAWER 7, Y5N ONE ×2 (00:17→09:38)
[2019-05-28] MEDS ORDERED: PIPERACILLIN/TAZOBACTAM 3.375 GM VIAL IVPB ONE ×3 (01:50→17:32)
[2019-05-28] MEDS ORDERED: DEXTROSE 5%-WATER - 50 ML IVPB ONE ×3 (01:50→17:32)
[2019-05-28] MEDS: PIPERACILLIN/TAZOB 3.375 GM 3.375 GM in DEXTROSE 5%-WATER - 50 ML IVPB SCH ×3 (01:55→17:35)
[2019-05-28] MEDS: INSULIN SLIDING SCALE (NOVOLOG) 1 VIAL SQ SCH ×4 (06:24→22:23)
[2019-05-28] MEDS: INSULIN (LEVEMIR) 100 UNITS/ML UNITS SQ SCH ×2 (06:25→22:21)
[2019-05-28] MEDS: HEPARIN NA (PORCINE) 5,000 UNITS/ML 1ML VIAL SQ SCH ×3 (06:25→22:20)
--- NOTE | 2019-05-28 08:25 | CONSULT ---
Consult Consult Specialty:: Podiatry Reason for Consultation:: OM right big toe joint. Wound PIPJ 5th toe left. - Past Medical History LAMINATOR: Yes: Peripheral Neuropathy, Other (cataract) Cardio/Vascular: Yes: HTN Gastrointestinal: Yes: GERD Renal/: Yes: Renal Inusuff Psych: Yes: Anxiety Endocrine: Yes: Diabetes Mellitus - Alcohol/Substance Use Hx Alcohol Use: No History of Substance Use: reports: None - Smoking History Smoking history: Never smoked Have you smoked in the past 12 months: No - Social History Usual Living Arrangement: Alone Home Medications - Allergies Allergies/Adverse Reactions: Allergies Allergy/AdvReac Type Severity Reaction Status Date / Time shellfish derived Allergy Verified 05/27/19 14:00 - Home Medications Home Medications: Ambulatory Orders Aspirin [Aspirin EC] 81 mg PO DAILY 08/17/17 Donepezil HCl [Aricept -] 5 mg PO DAILY 08/17/17 Buspirone HCl [Buspar -] 10 mg PO BID #60 tablet 09/11/17 metFORMIN HCL [Metformin HCl] 500 mg PO BID #0 tab 09/11/17 Clopidogrel Bisulfate [Plavix] 75 mg PO DAILY 05/27/19 Insulin Aspart [Novolog] 20 unit SQ BID 05/27/19 Insulin Degludec [Tresiba] 40 unit SQ DAILY 05/27/19 Quetiapine Fumarate [Seroquel -] 25 mg PO HS 05/27/19 Trazodone HCl 150 mg PO DAILY 05/27/19 Losartan Potassium 100 mg PO DAILY 05/28/19 Physical Exam Vital Signs: Vital Signs Temperature 98.1 F 05/28/19 06:40 Pulse Rate 72 05/28/19 06:40 Respiratory Rate 18 05/28/19 06:40 Blood Pressure 144/71 05/28/19 06:40 O2 Sat by Pulse Oximetry (%) 97 05/27/19 20:33 Extremities: Yes: Other (+grade 3 wound right big toe joint, -drainage, -mal odor. +grade 0-1 wound PIPJ medially left 5th toe, nvs decreased b/l) Imaging - Results X-ray: Image Reviewed MRI: Report Reviewed Assessment/Plan Osteomyelitis right foot PVD Wound left 5th toe IVABX as per ID. Vascular consult to be done. Had Navix study already. xray left foot to be done. Post op shoe right foot. HBO consult. Will follow. Betadine dressing 1st mpj right.
[2019-05-28 08:42] LABS: BILIRUBIN,TOTAL 0.3 mg/dL (0.2-1); BLOOD UREA NITROGEN 15.2 mg/dL (7-18); CALCIUM 8.8 mg/dL (8.5-10.1); CREATININE 0.9 mg/dL (0.55-1.3); MAGNESIUM 2.4 mg/dL (1.8-2.4); PHOSPHOROUS 4.3 mg/dL (2.5-4.9); POTASSIUM 3.9 mmol/L (3.5-5.1); TOT PROT 7.3 g/dl (6.4-8.2)
[2019-05-28 08:57] LABS: BASO % 0.4 % (0-2.0); HEMATOCRIT 31.4 % (32.4-45.2); HEMOGLOBIN 10.5 GM/dL (10.7-15.3); LYMPH % 32.9 % (8-40); MCH 27.5 pg (25.7-33.7); MCHC 33.5 g/dl (32.0-36.0); MEAN CELL VOLUME 82.1 fl (80-96); MEAN PLT VOLUME 7.6 fl (7.5-11.1); MONO % 7.3 % (3.8-10.2); NEUT % 56.4 % (42.8-82.8); PLATELET COUNT 284 K/MM3 (134-434); RBC 3.83 M/mm3 (3.60-5.2); RDW 14.9 % (11.6-15.6); WHITE BLOOD COUNT 6.1 K/mm3 (4.0-10.0)
[2019-05-28 09:18] LABS: INR 1.03 (0.83-1.09); PROTHROMBIN TIME (PATIENT) 12.1 SEC (9.7-13.0)
[2019-05-28 09:21] LABS: ACTIVATED PTT 34.9 SECONDS (25.2-36.5)
[2019-05-28] MEDS: ASPIRIN COATED 81 MG TABLET.EC PO SCH (09:45)
[2019-05-28] MEDS: CLOPIDOGREL BISULFATE 75 MG TABLET (FP) PO SCH (09:45)
[2019-05-28] MEDS: LOSARTAN POTASSIUM 50 MG TABLET (FP) PO SCH (09:45)
[2019-05-28] MEDS ORDERED: LOSARTAN POTASSIUM 25 MG TABLET PO SCH (10:00)
[2019-05-28] MEDS ORDERED: traZODone HCL 150 MG TABLET PO SCH (10:00)
--- NOTE | 2019-05-28 10:21 | PN ---
Physical Exam: SUBJECTIVE: Patient seen and examined. Denies pain, chest pain , shortness of breath or fevers. Got imaging studies done today. OBJECTIVE: Vital Signs Period Temp Pulse Resp BP Sys/Persaud Pulse Ox Last 24 Hr 97.7 F-99.0 F 72-85 16-20 144-188/71-94 93-100 GENERAL: The patient is awake, alert, and fully oriented, in no acute distress. LUNGS: Breath sounds equal, clear to auscultation bilaterally, no wheezes, no crackles HEART: Regular rate and rhythm, S1, S2 ABDOMEN: Soft, nontender, nondistended, normoactive bowel sounds EXTREMITIES: R foot ulcer with callous and small hole on R big toe, not red, no clear purulent discharge. Small hole in between webs of L foot 4/5 NEUROLOGICAL: Cranial nerves II through XII grossly intact. Normal speech, gait not observed. Laboratory Results - last 24 hr 05/27/19 05/27/19 05/27/19 15:30 15:30 15:30 WBC 7.8 RBC 3.91 Hgb 10.8 Hct 32.3 L MCV 82.5 MCH 27.6 MCHC 33.4 RDW 15.3 Plt Count 319 MPV 7.6 Absolute Neuts (auto) 4.9 Neutrophils % 63.1 Lymphocytes % 28.2 Monocytes % 6.2 Eosinophils % 2.1 Basophils % 0.4 Nucleated RBC % 0 ESR 91 H PT with INR INR PTT (Actin FS) Sodium 136 Potassium 4.7 Chloride 101 Carbon Dioxide 28 Anion Gap 6 L BUN 19.0 H Creatinine 1.0 Est GFR (CKD-EPI)AfAm 60.76 Est GFR (CKD-EPI)NonAf 52.42 POC Glucometer Random Glucose 204 H Lactic Acid 1.5 Calcium 8.8 Phosphorus Magnesium Total Bilirubin 0.2 AST 21 ALT 24 Alkaline Phosphatase 82 C-Reactive Protein Total Protein 8.2 Albumin 3.4 Urine Color Urine Appearance Urine pH Ur Specific [place] Urine Protein Urine Glucose (UA) Urine Ketones Urine Blood Urine Nitrite Urine Bilirubin Urine Urobilinogen Ur Leukocyte Esterase Urine WBC (Auto) Urine RBC (Auto) Urine Casts (Auto) U Epithel Cells (Auto) Urine Bacteria (Auto) 05/27/19 05/27/19 05/28/19 15:30 21:42 05:48 WBC RBC Hgb Hct MCV MCH MCHC RDW Plt Count MPV Absolute Neuts (auto) Neutrophils % Lymphocytes % Monocytes % Eosinophils % Basophils % Nucleated RBC % ESR PT with INR INR PTT (Actin FS) Sodium Potassium Chloride Carbon Dioxide Anion Gap BUN Creatinine Est GFR (CKD-EPI)AfAm Est GFR (CKD-EPI)NonAf POC Glucometer 233 75 Random Glucose Lactic Acid Calcium Phosphorus Magnesium Total Bilirubin AST ALT Alkaline Phosphatase C-Reactive Protein Total Protein Albumin Urine Color Yellow Urine Appearance Clear Urine pH 7.0 Ur Specific [place] 1.008 L Urine Protein 2+ H Urine Glucose (UA) Trace Urine Ketones Negative Urine Blood 1+ H Urine Nitrite Negative Urine Bilirubin Negative Urine Urobilinogen 0.2 Ur Leukocyte Esterase 2+ H Urine WBC (Auto) 16 Urine RBC (Auto) 2 Urine Casts (Auto) 0 U Epithel Cells (Auto) 2.4 Urine Bacteria (Auto) 82.1 05/28/19 05/28/19 05/28/19 07:52 07:52 07:52 WBC 6.1 RBC 3.83 Hgb 10.5 L Hct 31.4 L MCV 82.1 MCH 27.5 MCHC 33.5 RDW 14.9 Plt Count 284 MPV 7.6 Absolute Neuts (auto) 3.5 Neutrophils % 56.4 Lymphocytes % 32.9 Monocytes % 7.3 Eosinophils % 3.0 Basophils % 0.4 Nucleated RBC % 0 ESR PT with INR 12.10 INR 1.03 PTT (Actin FS) 34.9 Sodium 140 Potassium 3.9 Chloride 105 Carbon Dioxide 30 Anion Gap 4 L BUN 15.2 Creatinine 0.9 Est GFR (CKD-EPI)AfAm 69.01 Est GFR (CKD-EPI)NonAf 59.55 POC Glucometer Random Glucose 78 Lactic Acid Calcium 8.8 Phosphorus 4.3 Magnesium 2.4 Total Bilirubin 0.3 AST 16 ALT 21 Alkaline Phosphatase 65 C-Reactive Protein Total Protein 7.3 Albumin 3.0 L Urine Color Urine Appearance Urine pH Ur Specific [place] Urine Protein Urine Glucose (UA) Urine Ketones Urine Blood Urine Nitrite Urine Bilirubin Urine Urobilinogen Ur Leukocyte Esterase Urine WBC (Auto) Urine RBC (Auto) Urine Casts (Auto) U Epithel Cells (Auto) Urine Bacteria (Auto) 05/28/19 07:52 WBC RBC Hgb Hct MCV MCH MCHC RDW Plt Count MPV Absolute Neuts (auto) Neutrophils % Lymphocytes % Monocytes % Eosinophils % Basophils % Nucleated RBC % ESR PT with INR INR PTT (Actin FS) Sodium Potassium Chloride Carbon Dioxide Anion Gap BUN Creatinine Est GFR (CKD-EPI)AfAm Est GFR (CKD-EPI)NonAf POC Glucometer Random Glucose Lactic Acid Calcium Phosphorus Magnesium Total Bilirubin AST ALT Alkaline Phosphatase C-Reactive Protein 1.3 H Total Protein Albumin Urine Color Urine Appearance Urine pH Ur Specific [place] Urine Protein Urine Glucose (UA) Urine Ketones Urine Blood Urine Nitrite Urine Bilirubin Urine Urobilinogen Ur Leukocyte Esterase Urine WBC (Auto) Urine RBC (Auto) Urine Casts (Auto) U Epithel Cells (Auto) Urine Bacteria (Auto) Active Medications Generic Name Dose Route Start Last Admin Trade Name Freq PRN Reason Stop Dose Admin Acetaminophen 650 mg 05/27/19 18:08 Tylenol - PO Q4H PRN PAIN LEVEL 1-5 Aspirin 81 mg 05/27/19 18:30 05/28/19 09:45 Ecotrin - PO 81 mg DAILY [facility] Administration Buspirone HCl 10 mg 05/27/19 22:00 05/28/19 09:45 Buspar - PO 10 mg BID [facility] Administration Clopidogrel Bisulfate 75 mg 05/27/19 18:30 05/28/19 09:45 Plavix - PO 75 mg DAILY [facility] Administration Donepezil HCl 5 mg 05/27/19 22:00 05/27/19 22:27 Aricept - PO 5 mg HS [facility] Administration Heparin Sodium (Porcine) 5,000 unit 05/27/19 22:00 05/28/19 06:25 Heparin - SQ 5,000 unit TID [facility] Administration Vancomycin HCl 1,000 mg/ 250 mls @ 200 mls/hr 05/27/19 18:30 Dextrose IVPB Q24H [facility] Protocol Piperacillin Sod/Tazobactam 50 mls @ 100 mls/hr 05/27/19 18:30 Sod 3.375 gm/ Dextrose IVPB Q8H-IV [facility] Protocol Piperacillin Sod/Tazobactam 50 mls @ 100 mls/hr 05/28/19 02:00 05/28/19 09:46 Sod 3.375 gm/ Dextrose IVPB 05/28/19 18:29 100 mls/hr Q8H-IV [facility] Administration Protocol Vancomycin HCl 1,000 mg in 250 mls @ 166.667 mls/hr 05/28/19 18:00 Vancomycin (Pre-Docked) IVPB 05/28/19 19:29 Q24H [facility] Protocol Insulin Aspart 1 vial 05/27/19 22:00 05/28/19 06:24 Novolog Vial Sliding Scale - SQ Not Given ACHS [facility] Protocol Insulin Detemir 10 units 05/27/19 22:00 05/28/19 06:25 Levemir Vial SQ 10 units BID@0700,2200 [facility] Administration Losartan Potassium 100 mg 05/28/19 10:00 05/28/19 09:45 Cozaar - PO 100 mg DAILY [facility] Administration Quetiapine Fumarate 25 mg 05/27/19 22:00 05/27/19 22:27 Seroquel - PO 25 mg HS [facility] Administration Trazodone HCl 150 mg 05/27/19 22:00 05/27/19 22:28 Desyrel - PO 150 mg HS [facility] Administration Ambulatory Orders Aspirin [Aspirin EC] 81 mg PO DAILY 08/17/17 Donepezil HCl [Aricept -] 5 mg PO DAILY 08/17/17 Buspirone HCl [Buspar -] 10 mg PO BID #60 tablet 09/11/17 metFORMIN HCL [Metformin HCl] 500 mg PO BID #0 tab 09/11/17 Clopidogrel Bisulfate [Plavix] 75 mg PO DAILY 05/27/19 Insulin Aspart [Novolog] 20 unit SQ BID 05/27/19 Insulin Degludec [Tresiba] 40 unit SQ DAILY 05/27/19 Quetiapine Fumarate [Seroquel -] 25 mg PO HS 05/27/19 Trazodone HCl 150 mg PO DAILY 05/27/19 Losartan Potassium 100 mg PO DAILY 05/28/19 Current Medications Acetaminophen (Tylenol -) 650 mg PO Q4H PRN PRN Reason: PAIN LEVEL 1-5 Aspirin (Ecotrin -) 81 mg PO DAILY [facility] Last Admin: 05/28/19 09:45 Dose: 81 mg Buspirone HCl (Buspar -) 10 mg PO BID [facility] Last Admin: 05/28/19 09:45 Dose: 10 mg Clopidogrel Bisulfate (Plavix -) 75 mg PO DAILY [facility] Last Admin: 05/28/19 09:45 Dose: 75 mg Donepezil HCl (Aricept -) 5 mg PO HS [facility] Last Admin: 05/27/19 22:27 Dose: 5 mg Heparin Sodium (Porcine) (Heparin -) 5,000 unit SQ TID [facility] Last Admin: 05/28/19 06:25 Dose: 5,000 unit Vancomycin HCl 1,000 mg/ (Dextrose) 250 mls @ 200 mls/hr IVPB Q24H [facility]; Protocol Piperacillin Sod/Tazobactam (Sod 3.375 gm/ Dextrose) 50 mls @ 100 mls/hr IVPB Q8H-IV [facility]; Protocol Piperacillin Sod/Tazobactam (Sod 3.375 gm/ Dextrose) 50 mls @ 100 mls/hr IVPB Q8H-IV [facility]; Protocol Stop: 05/28/19 18:29 Last Admin: 05/28/19 09:46 Dose: 100 mls/hr Vancomycin HCl (Vancomycin (Pre-Docked)) 1,000 mg in 250 mls @ 166.667 mls/hr IVPB Q24H [facility]; Protocol Stop: 05/28/19 19:29 Insulin Aspart (Novolog Vial Sliding Scale -) 1 vial SQ ACHS [facility]; Protocol Last Admin: 05/28/19 06:24 Dose: Not Given Insulin Detemir (Levemir Vial) 10 units SQ BID@0700,2200 [facility] Last Admin: 05/28/19 06:25 Dose: 10 units Losartan Potassium (Cozaar -) 100 mg PO DAILY [facility] Last Admin: 05/28/19 09:45 Dose: 100 mg Quetiapine Fumarate (Seroquel -) 25 mg PO HS [facility] Last Admin: 05/27/19 22:27 Dose: 25 mg Trazodone HCl (Desyrel -) 150 mg PO [facility] Last Admin: 05/27/19 22:28 Dose: 150 mg Microbiology 05/27/19 15:30 Urine - Urine Clean Catch Urine Culture - Final Strep Agalactiae Group B ASSESSMENT/PLAN: Pt is an 83 yo M with PMHx of DM, HTN, TIA, presenting from wound care, after being referred by Dr Perla for non healing b/l LE diabetic ulcers. diabetic ulcers-failed outpt AB therapy, R/O OM DM, HTN, TIA bipolar disorder PAD positive urine cx-likely asymptomatic bacteriuria Cont vanc/zosyn-05/27 ID consult-Dr Corey Repeat MRI R foot ESR/CRP Podiatry consult- wound care and decision to biopsy Pain control with tylenol Hold oral hypoglycemics levemir 10u bid ISS ACHS BGM ACHS cont ASA/plavix Cont losartan Podiatry consult- Dr Perla pending bcx, ucx, wcx seroquel/trazadone/buspirone heparin sq Monitor BP Dr Rankin- vascular Medsurg Visit type - Emergency Visit Emergency Visit: Yes ED Registration Date: 05/27/19 Care time: The patient presented to the Emergency Department on the above date and was hospitalized for further evaluation of their emergent condition. - New Patient This patient is new to me today: No - Critical Care Critical Care patient: No - Discharge Referral Referred to [facility] Med [facility] No ATTENDING PHYSICIAN STATEMENT I saw and evaluated the patient. I reviewed the resident's note and discussed the case with the resident. I agree with the resident's findings and plan as documented. SUBJECTIVE: OBJECTIVE: ASSESSMENT AND PLAN:
--- NOTE | 2019-05-28 12:52 | PN ---
Progress Note (short form) - Note Progress Note: VAscular Surgery Pt seen and examined. Wound on right great toe. Last MRI in april did not show osteo. Pt does not have any palpable pulses. Navix reviewed. Recc repeat MRI to rule out osteo. Pt might need PICC if positive. If surgery is needed, pt might need CTA to check runoff. Peng Rankin dO
--- NOTE | 2019-05-28 14:33 | CON.ID ---
Consult Referred by:: hospitalist Reason for Consultation:: foot infection - History of Present Illness Chief Complaint: nonhealing foot ulcer for 2 months History of Present Illness: 83 y female with an ulcer that has not yealed at the site of her bunion on her right big toe originally treated with clindamycin for one week carroll one week keflex she has a tiny hole inthe medal aspect of the bunion serous drainage noted no erythema MRI from 04/22 of both feet and bone scan are negative for osteo no admitted for futher w/u esr is 96 crp 1.3 - History Source History Provided By: Medical Record - Past Medical History 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[employer] PIPE: Yes: Peripheral Neuropathy, Other (cataract) Cardio/Vascular: Yes: HTN Gastrointestinal: Yes: GERD Renal/: Yes: Renal Inusuff Psych: Yes: Anxiety Endocrine: Yes: Diabetes Mellitus - Past Surgical History Past Surgical History: Yes: Cholecystectomy, - Alcohol/Substance Use Hx Alcohol Use: No History of Substance Use: reports: None - Smoking History Smoking history: Never smoked Have you smoked in the past 12 months: No - Social History Usual Living Arrangement: Alone ADL: Independent Occupation: retired Place of : Other History of Recent Travel: No Home Medications - Allergies Allergies/Adverse Reactions: Allergies Allergy/AdvReac Type Severity Reaction Status Date / Time shellfish derived Allergy Verified 05/27/19 14:00 - Home Medications Home Medications: Ambulatory Orders Aspirin [Aspirin EC] 81 mg PO DAILY 08/17/17 Donepezil HCl [Aricept -] 5 mg PO DAILY 08/17/17 Buspirone HCl [Buspar -] 10 mg PO BID #60 tablet 09/11/17 metFORMIN HCL [Metformin HCl] 500 mg PO BID #0 tab 09/11/17 Clopidogrel Bisulfate [Plavix] 75 mg PO DAILY 05/27/19 Insulin Aspart [Novolog] 20 unit SQ BID 05/27/19 Insulin Degludec [Tresiba] 40 unit SQ DAILY 05/27/19 Quetiapine Fumarate [Seroquel -] 25 mg PO HS 05/27/19 Trazodone HCl 150 mg PO DAILY 05/27/19 Losartan Potassium 100 mg PO DAILY 05/28/19 Family Disease History - Family Disease History Family History: Unable to Obtain Review of Systems - Review of Systems Constitutional: denies: Chills, Fever Eyes: reports: No Symptoms HENT: reports: No Symptoms Neck: reports: No Symptoms Cardiovascular: reports: No Symptoms Respiratory: reports: No Symptoms Gastrointestinal: reports: No Symptoms Genitourinary: reports: No Symptoms. denies: Burning, Discharge, Dysuria Physical Exam Vital Signs: Vital Signs Temperature 98 F 05/28/19 10:00 Pulse Rate 83 05/28/19 10:00 Respiratory Rate 20 05/28/19 10:00 Blood Pressure 168/83 05/28/19 10:00 O2 Sat by Pulse Oximetry (%) 100 05/28/19 09:00 Constitutional: Yes: Well Nourished, No Distress, Calm, Poor Hygeine HENT: Yes: Atraumatic Neck: Yes: Supple Cardiovascular: Yes: Regular Rate and Rhythm Respiratory: Yes: Regular, CTA Bilaterally Gastrointestinal: Yes: Normal Bowel Sounds Extremities: Yes: Other (right medial aspeck to bunion with pinpoint hole with serous drainage) Edema: No Neurological: Yes: Alert, Oriented Labs: CBC, BMP 05/28/19 07:52 05/28/19 07:52 Microbiology 05/27/19 15:30 Blood - Peripheral Venous Blood Culture - Preliminary NO GROWTH OBTAINED AFTER 24 HOURS, INCUBATION TO CONTINUE FOR 4 DAYS. 05/27/19 15:30 Blood - Peripheral Venous Blood Culture - Preliminary NO GROWTH OBTAINED AFTER 24 HOURS, INCUBATION TO CONTINUE FOR 4 DAYS. 05/27/19 15:10 Wound Gram Stain - Final 05/27/19 15:10 Wound Wound Culture - Preliminary NO GROWTH OBTAINED AFTER 24 HOURS INCUBATION, REINCUBATED. 05/27/19 15:30 Urine - Urine Clean Catch Urine Culture - Final Strep Agalactiae Group B Imaging - Results X-ray: Report Reviewed Problem List - Problems (1) Non-healing ulcer of foot Code(s): L97.509 - NON-PRESSURE CHRONIC ULCER OTH PRT UNSP FOOT W UNSP SEVERITY (2) Diabetes mellitus Code(s): E11.9 - TYPE 2 DIABETES MELLITUS WITHOUT COMPLICATIONS Assessment/Plan given riing inflammaroty markers and mild anemia- would repeat mri of the right foot to r/o osteo continue vancomycin and zosyn poorly controlled diabetes with hgbaic over 10 in April 2019 d/w hospitalist do not think she has UTI- she is not symptomatic
[2019-05-28] MEDS: NIFEdipine E.R. 30 MG TABLET (FP) PO SCH (15:26)
[2019-05-28] MEDS ORDERED: INSULIN (NOVOLOG) ASPART 100 UNITS/ML 10ML VIAL ONE (16:14)
[2019-05-28] MEDS ORDERED: VANCOMYCIN 1 GRAM (PRE-DOCKED) 1,000 MG/250 ML BAG IVPB SCH (18:00)
--- NOTE | 2019-05-28 18:48 | PN ---
Teaching Attending Note Name of Resident: Delfina Chavarria ATTENDING PHYSICIAN STATEMENT I saw and evaluated the patient. I reviewed the resident's note and discussed the case with the resident. I agree with the resident's findings and plan as documented. SUBJECTIVE: Ms Pierce is without complaint today. No cp, sob, n/v. Pain in foot controlled OBJECTIVE: Last Vital Signs Temp Pulse Resp BP Pulse Ox 36.8 C 91 H 20 156/92 100 05/28/19 18:36 05/28/19 18:36 05/28/19 18:36 05/28/19 18:36 05/28/19 09:00 Gen: nad Pulm: ctab w/o w/r/r CV: rrr w/o m/r/g Abd: +bs, s/nt/nd Ext: foot wrapped ASSESSMENT AND PLAN: (1) Diabetic foot Assessment/Plan: -case d/w Dr Corey -repeat MRI of R foot -x-ray of L foot for 5th toe ulcer -continue vancomycin and zosyn Code(s): E11.8 - TYPE 2 DIABETES MELLITUS WITH UNSPECIFIED COMPLICATIONS (2) Diabetes mellitus Assessment/Plan: -on tresiba 40 units daily at home -controlled on levemir 10 units bid and SSI -continue diabetic diet Code(s): E11.9 - TYPE 2 DIABETES MELLITUS WITHOUT COMPLICATIONS (3) HTN (hypertension) Assessment/Plan: -continue losartan and amlodipine -can add metoprolol if further agents needed Code(s): I10 - ESSENTIAL (PRIMARY) HYPERTENSION Qualifiers: Hypertension type: unspecified Qualified Code(s): I10 - Essential (primary ) hypertension (4) Dementia Assessment/Plan: -continue donepezil Code(s): F03.90 - UNSPECIFIED DEMENTIA WITHOUT BEHAVIORAL DISTURBANCE (5) Anxiety Assessment/Plan: -continue buspar Code(s): F41.9 - ANXIETY DISORDER, UNSPECIFIED (6) TIA (transient ischemic attack) Assessment/Plan: -continue aspirin and plavix Code(s): G45.9 - TRANSIENT CEREBRAL ISCHEMIC ATTACK, UNSPECIFIED Qualifiers: Transient cerebral ischemia type: unspecified Qualified Code(s): G45.9 - Transient cerebral ischemic attack, unspecified Problem List - Problems (1) Diabetic foot Code(s): E11.8 - TYPE 2 DIABETES MELLITUS WITH UNSPECIFIED COMPLICATIONS (2) Diabetes mellitus Code(s): E11.9 - TYPE 2 DIABETES MELLITUS WITHOUT COMPLICATIONS (3) HTN (hypertension) Code(s): I10 - ESSENTIAL (PRIMARY) HYPERTENSION Qualifiers: Hypertension type: unspecified Qualified Code(s): I10 - Essential (primary ) hypertension (4) Dementia Code(s): F03.90 - UNSPECIFIED DEMENTIA WITHOUT BEHAVIORAL DISTURBANCE (5) Anxiety Code(s): F41.9 - ANXIETY DISORDER, UNSPECIFIED (6) TIA (transient ischemic attack) Code(s): G45.9 - TRANSIENT CEREBRAL ISCHEMIC ATTACK, UNSPECIFIED Qualifiers: Transient cerebral ischemia type: unspecified Qualified Code(s): G45.9 - Transient cerebral ischemic attack, unspecified
[2019-05-28] MEDS: traZODone HCL 50 MG TABLET (FP) PO SCH (22:19)
[2019-05-28] MEDS: QUEtiapine FUMARATE 25 MG TABLET (FP) PO SCH (22:20)
[2019-05-28] MEDS: DONEPEZIL HCL 5 MG TABLET (FP) PO SCH (22:20)
--- NOTE | 2019-05-29 00:49 | CONSULT ---
Consult Consult Specialty:: endocrine Referred by:: dr.stepanian stubbs Reason for Consultation:: diabetes mellitus uncontrolled - History of Present Illness Chief Complaint: high sugars History of Present Illness: 83 yo M with PMHx of DM2, HTN, TIA, admitted for diabetic le ulcers, non healing b/l LE diabetic ulcers. the swelling on the medial aspect of her R big toe 2 months ago, which eventually eroded into an ulcer. Pt initially received one week treatment with clindamycin, then she was referred to Dr Neal a managing director who did local care of the wound. Pt was referred to the wound care Center at [facility] with Dr Perla with recently completed wound care therapy and iv antibiotics.she has had blood sugars in 300's,despite taking insulin,she denies nausea vomiting fever or chills. 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, Other (cataract) Cardio/Vascular: Yes: HTN Gastrointestinal: Yes: GERD Renal/: Yes: Renal Inusuff Psych: Yes: Anxiety Endocrine: Yes: Diabetes Mellitus - Past Surgical History Past Surgical History: Yes: Cholecystectomy, - Alcohol/Substance Use Hx Alcohol Use: No History of Substance Use: reports: None - Smoking History Smoking history: Never smoked Have you smoked in the past 12 months: No - Social History Usual Living Arrangement: Alone ADL: Independent Occupation: retired History of Recent Travel: No Home Medications - Allergies Allergies/Adverse Reactions: Allergies Allergy/AdvReac Type Severity Reaction Status Date / Time shellfish derived Allergy Verified 05/27/19 14:00 - Home Medications Home Medications: Ambulatory Orders Aspirin [Aspirin EC] 81 mg PO DAILY 08/17/17 Donepezil HCl [Aricept -] 5 mg PO DAILY 08/17/17 Buspirone HCl [Buspar -] 10 mg PO BID #60 tablet 09/11/17 metFORMIN HCL [Metformin HCl] 500 mg PO BID #0 tab 09/11/17 Clopidogrel Bisulfate [Plavix] 75 mg PO DAILY 05/27/19 Insulin Aspart [Novolog] 20 unit SQ BID 05/27/19 Insulin Degludec [Tresiba] 40 unit SQ DAILY 05/27/19 Quetiapine Fumarate [Seroquel -] 25 mg PO HS 05/27/19 Trazodone HCl 150 mg PO DAILY 05/27/19 Losartan Potassium 100 mg PO DAILY 05/28/19 Review of Systems - Review of Systems Constitutional: reports: Weakness Eyes: reports: No Symptoms HENT: reports: No Symptoms Neck: reports: No Symptoms Cardiovascular: reports: No Symptoms Respiratory: reports: Exercise Intolerance, SOB on Exertion Gastrointestinal: reports: No Symptoms Genitourinary: reports: No Symptoms Musculoskeletal: reports: Muscle Pain, Muscle Cramps, Muscle Weakness Integumentary: reports: No Symptoms Neurological: reports: Weakness Endocrine: reports: Unexplained Weight Gain Physical Exam Vital Signs: Vital Signs Temperature 98.4 F 05/28/19 22:00 Pulse Rate 79 05/28/19 22:00 Respiratory Rate 20 05/28/19 22:00 Blood Pressure 173/79 H 05/28/19 22:00 O2 Sat by Pulse Oximetry (%) 99 05/28/19 21:00 Constitutional: Yes: Calm Eyes: Yes: EOM Intact HENT: Yes: Normocephalic Neck: Yes: Trachea Midline Cardiovascular: Yes: Regular Rate and Rhythm Respiratory: Yes: CTA Bilaterally Gastrointestinal: Yes: Normal Bowel Sounds ...Rectal Exam: Yes: Deferred Renal/: Yes: WNL Musculoskeletal: Yes: WNL Extremities: Yes: Delayed Capillary Refill Edema: No Peripheral Pulses WNL: No Wound/Incision: Yes: Clean/Dry Neurological: Yes: Alert, Oriented Labs: CBC, BMP 05/28/19 07:52 05/28/19 07:52 Problem List - Problems (1) Dementia Code(s): F03.90 - UNSPECIFIED DEMENTIA WITHOUT BEHAVIORAL DISTURBANCE (2) Diabetic foot Code(s): E11.8 - TYPE 2 DIABETES MELLITUS WITH UNSPECIFIED COMPLICATIONS (3) Non-healing ulcer of foot Code(s): L97.509 - NON-PRESSURE CHRONIC ULCER OTH PRT UNSP FOOT W UNSP SEVERITY (4) Acute metabolic encephalopathy Code(s): G93.41 - METABOLIC ENCEPHALOPATHY (5) Diabetes mellitus Code(s): E11.9 - TYPE 2 DIABETES MELLITUS WITHOUT COMPLICATIONS (6) HTN (hypertension) Code(s): I10 - ESSENTIAL (PRIMARY) HYPERTENSION Qualifiers: Hypertension type: unspecified Qualified Code(s): I10 - Essential (primary ) hypertension (7) Hyperglycemia Code(s): R73.9 - HYPERGLYCEMIA, UNSPECIFIED Assessment/Plan Current Active Problems diabetes mellitus 2 diabetic neuropathy Dementia (Acute) Diabetic foot (Acute) Non-healing ulcer of foot (Acute) hld cholesterol htn Abnormal Lab Results 05/28/19 05/28/19 05/28/19 07:52 07:52 07:52 Hgb 10.5 L Hct 31.4 L ESR Anion Gap 4 L C-Reactive Protein 1.3 H Albumin 3.0 L 05/28/19 07:52 Hgb Hct ESR 96 H Anion Gap C-Reactive Protein Albumin Laboratory Results - last 24 hr 05/28/19 05/28/19 05/28/19 05:48 07:52 07:52 WBC 6.1 RBC 3.83 Hgb 10.5 L Hct 31.4 L MCV 82.1 MCH 27.5 MCHC 33.5 RDW 14.9 Plt Count 284 MPV 7.6 Absolute Neuts (auto) 3.5 Neutrophils % 56.4 Lymphocytes % 32.9 Monocytes % 7.3 Eosinophils % 3.0 Basophils % 0.4 Nucleated RBC % 0 ESR PT with INR 12.10 INR 1.03 PTT (Actin FS) 34.9 Sodium Potassium Chloride Carbon Dioxide Anion Gap BUN Creatinine Est GFR (CKD-EPI)AfAm Est GFR (CKD-EPI)NonAf POC Glucometer 75 Random Glucose Calcium Phosphorus Magnesium Total Bilirubin AST ALT Alkaline Phosphatase C-Reactive Protein Total Protein Albumin 05/28/19 05/28/19 05/28/19 07:52 07:52 07:52 WBC RBC Hgb Hct MCV MCH MCHC RDW Plt Count MPV Absolute Neuts (auto) Neutrophils % Lymphocytes % Monocytes % Eosinophils % Basophils % Nucleated RBC % ESR 96 H PT with INR INR PTT (Actin FS) Sodium 140 Potassium 3.9 Chloride 105 Carbon Dioxide 30 Anion Gap 4 L BUN 15.2 Creatinine 0.9 Est GFR (CKD-EPI)AfAm 69.01 Est GFR (CKD-EPI)NonAf 59.55 POC Glucometer Random Glucose 78 Calcium 8.8 Phosphorus 4.3 Magnesium 2.4 Total Bilirubin 0.3 AST 16 ALT 21 Alkaline Phosphatase 65 C-Reactive Protein 1.3 H Total Protein 7.3 Albumin 3.0 L Laboratory Tests 05/27/19 05/28/19 05/28/19 21:42 05:48 07:52 Sodium 140 Potassium 3.9 Chloride 105 Carbon Dioxide 30 Anion Gap 4 L POC Glucometer 233 75 Calcium 8.8 Phosphorus 4.3 Magnesium 2.4 plan: check hba1c bgm coverage scale levir 10 units bid \lipid level
[2019-05-29] MEDS ORDERED: PIPERACILLIN/TAZOBACTAM 3.375 GM VIAL IVPB ONE ×3 (01:35→17:17)
[2019-05-29] MEDS ORDERED: DEXTROSE 5%-WATER - 50 ML IVPB ONE ×3 (01:36→17:17)
[2019-05-29] MEDS: PIPERACILLIN/TAZOB 3.375 GM 3.375 GM in DEXTROSE 5%-WATER - 50 ML IVPB SCH ×3 (01:39→17:43)
[2019-05-29] MEDS: HEPARIN NA (PORCINE) 5,000 UNITS/ML 1ML VIAL SQ SCH ×3 (06:10→22:06)
[2019-05-29] MEDS: INSULIN (LEVEMIR) 100 UNITS/ML UNITS SQ SCH ×2 (06:11→22:06)
[2019-05-29] MEDS: INSULIN SLIDING SCALE (NOVOLOG) 1 VIAL SQ SCH ×4 (06:13→22:07)
[2019-05-29 08:08] LABS: ALBUMIN 3.1 g/dl (3.4-5.0); BILIRUBIN,TOTAL 0.3 mg/dL (0.2-1); BLOOD UREA NITROGEN 16.8 mg/dL (7-18); CALCIUM 8.7 mg/dL (8.5-10.1); CREATININE 0.9 mg/dL (0.55-1.3); MAGNESIUM 2.5 mg/dL (1.8-2.4); PHOSPHOROUS 4.4 mg/dL (2.5-4.9); POTASSIUM 3.9 mmol/L (3.5-5.1); TOT PROT 7.8 g/dl (6.4-8.2)
[2019-05-29 08:14] LABS: BASO % 0.5 % (0-2.0); EOS % 4.2 % (0-4.5); HEMOGLOBIN 11.1 GM/dL (10.7-15.3); LYMPH % 32.9 % (8-40); MCH 27.8 pg (25.7-33.7); MCHC 33.7 g/dl (32.0-36.0); MEAN CELL VOLUME 82.5 fl (80-96); MEAN PLT VOLUME 7.6 fl (7.5-11.1); NEUT % 55.4 % (42.8-82.8); RDW 14.9 % (11.6-15.6); WHITE BLOOD COUNT 6.8 K/mm3 (4.0-10.0)
[2019-05-29 09:09] LABS: PLATELET COUNT 282 K/MM3 (134-434)
[2019-05-29] MEDS ORDERED: PT OWN MED DRAWER 7, Y5N ONE (09:58)
[2019-05-29] MEDS: NIFEdipine E.R. 30 MG TABLET (FP) PO SCH (10:06)
[2019-05-29] MEDS: CLOPIDOGREL BISULFATE 75 MG TABLET (FP) PO SCH (10:06)
[2019-05-29] MEDS: ASPIRIN COATED 81 MG TABLET.EC PO SCH (10:06)
[2019-05-29] MEDS: busPIRone HCL 10 MG TABLET (FP) PO SCH ×2 (10:07→22:05)
[2019-05-29] MEDS: LOSARTAN POTASSIUM 50 MG TABLET (FP) PO SCH (10:07)
--- NOTE | 2019-05-29 12:40 | PN ---
Progress Note, Physician Chief Complaint: Ms Pierce says she is feeling good today. Denies cp, sob, n/v. - Current Medication List Current Medications: Active Medications Acetaminophen (Tylenol -) 650 mg PO Q4H PRN PRN Reason: PAIN LEVEL 1-5 Aspirin (Ecotrin -) 81 mg PO DAILY [facility] Last Admin: 05/29/19 10:06 Dose: 81 mg Buspirone HCl (Buspar -) 10 mg PO BID [facility] Last Admin: 05/29/19 10:07 Dose: 10 mg Clopidogrel Bisulfate (Plavix -) 75 mg PO DAILY [facility] Last Admin: 05/29/19 10:06 Dose: 75 mg Donepezil HCl (Aricept -) 5 mg PO HS [facility] Last Admin: 05/28/19 22:20 Dose: 5 mg Heparin Sodium (Porcine) (Heparin -) 5,000 unit SQ TID [facility] Last Admin: 05/29/19 06:10 Dose: 5,000 unit Piperacillin Sod/Tazobactam (Sod 3.375 gm/ Dextrose) 50 mls @ 100 mls/hr IVPB Q8H-IV [facility]; Protocol Last Admin: 05/29/19 10:08 Dose: 100 mls/hr Vancomycin HCl (Vancomycin (Pre-Docked)) 1,000 mg in 250 mls @ 166.667 mls/hr IVPB Q24H [facility]; Protocol Insulin Aspart (Novolog Vial Sliding Scale -) 1 vial SQ ACHS [facility]; Protocol Last Admin: 05/29/19 11:13 Dose: 8 units Insulin Detemir (Levemir Vial) 10 units SQ BID@0700,2200 [facility] Last Admin: 05/29/19 06:11 Dose: 10 units Losartan Potassium (Cozaar -) 100 mg PO DAILY [facility] Last Admin: 05/29/19 10:07 Dose: 100 mg Nifedipine (Procardia Xl -) 30 mg PO DAILY [facility] Last Admin: 05/29/19 10:06 Dose: 30 mg Quetiapine Fumarate (Seroquel -) 25 mg PO HS [facility] Last Admin: 05/28/19 22:20 Dose: 25 mg Trazodone HCl (Desyrel -) 150 mg PO HS [facility] Last Admin: 05/28/19 22:19 Dose: 150 mg - Objective Vital Signs: Vital Signs Temperature 36.6 C 05/29/19 09:00 Pulse Rate 79 05/29/19 09:00 Respiratory Rate 18 05/29/19 09:00 Blood Pressure 139/61 05/29/19 09:00 O2 Sat by Pulse Oximetry (%) 98 05/29/19 09:00 Constitutional: Yes: No Distress, Calm, Obese Cardiovascular: Yes: Regular Rate and Rhythm. No: Gallop, Murmur, Rub Respiratory: Yes: Regular, CTA Bilaterally. No: Rales, Rhonchi, Wheezes Gastrointestinal: Yes: Normal Bowel Sounds, Soft. No: Distention, Tenderness Extremities: Yes: Other (R foot wound without erythema) Edema: No Labs: CBC, BMP 05/29/19 06:30 05/29/19 06:30 INR, PTT INR 1.03 (0.83-1.09) 05/28/19 07:52 Problem List - Problems (1) Diabetic foot Code(s): E11.8 - TYPE 2 DIABETES MELLITUS WITH UNSPECIFIED COMPLICATIONS (2) Diabetes mellitus Code(s): E11.9 - TYPE 2 DIABETES MELLITUS WITHOUT COMPLICATIONS (3) HTN (hypertension) Code(s): I10 - ESSENTIAL (PRIMARY) HYPERTENSION Qualifiers: Hypertension type: unspecified Qualified Code(s): I10 - Essential (primary ) hypertension (4) Dementia Code(s): F03.90 - UNSPECIFIED DEMENTIA WITHOUT BEHAVIORAL DISTURBANCE (5) Anxiety Code(s): F41.9 - ANXIETY DISORDER, UNSPECIFIED (6) TIA (transient ischemic attack) Code(s): G45.9 - TRANSIENT CEREBRAL ISCHEMIC ATTACK, UNSPECIFIED Qualifiers: Transient cerebral ischemia type: unspecified Qualified Code(s): G45.9 - Transient cerebral ischemic attack, unspecified Assessment/Plan (1) Diabetic foot Assessment/Plan: -MRI R foot negative for osteo -ID/podiatry following -continue vancomycin/zosyn per ID recommendations Code(s): E11.8 - TYPE 2 DIABETES MELLITUS WITH UNSPECIFIED COMPLICATIONS (2) Diabetes mellitus Assessment/Plan: -on tresiba 40 units daily at home -controlled on levemir 10 units bid and SSI -continue diabetic diet -appreciate endocrinology assistance Code(s): E11.9 - TYPE 2 DIABETES MELLITUS WITHOUT COMPLICATIONS (3) HTN (hypertension) Assessment/Plan: -continue losartan and amlodipine -will add low dose metoprolol for better control Code(s): I10 - ESSENTIAL (PRIMARY) HYPERTENSION Qualifiers: Hypertension type: unspecified Qualified Code(s): I10 - Essential (primary ) hypertension (4) Dementia Assessment/Plan: -continue donepezil Code(s): F03.90 - UNSPECIFIED DEMENTIA WITHOUT BEHAVIORAL DISTURBANCE (5) Anxiety Assessment/Plan: -continue buspar Code(s): F41.9 - ANXIETY DISORDER, UNSPECIFIED (6) TIA (transient ischemic attack) Assessment/Plan: -continue aspirin and plavix Code(s): G45.9 - TRANSIENT CEREBRAL ISCHEMIC ATTACK, UNSPECIFIED Qualifiers: Transient cerebral ischemia type: unspecified Qualified Code(s): G45.9 - Transient cerebral ischemic attack, unspecified
--- NOTE | 2019-05-29 13:59 | PN ---
Progress Note (short form) - Note Progress Note: MRI of foot- no osteomyelitis, no abscess Vital Signs Period Temp Pulse Resp BP Sys/Persaud Pulse Ox Last 24 Hr 97.8 F-98.5 F 76-91 18-20 134-184/61-96 98-99 cor-rrr lungs clear right foot with bunion noted -no erythema, no drainage CBC, BMP 05/29/19 06:30 05/29/19 06:30 Microbiology 05/27/19 15:10 Wound Gram Stain - Final 05/27/19 15:10 Wound Wound Culture - Final NO GROWTH AFTER 48 HOURS INCUBATION 05/27/19 15:30 Blood - Peripheral Venous Blood Culture - Preliminary NO GROWTH OBTAINED AFTER 24 HOURS, INCUBATION TO CONTINUE FOR 4 DAYS. 05/27/19 15:30 Blood - Peripheral Venous Blood Culture - Preliminary NO GROWTH OBTAINED AFTER 24 HOURS, INCUBATION TO CONTINUE FOR 4 DAYS. 05/27/19 15:30 Urine - Urine Clean Catch Urine Culture - Final Strep Agalactiae Group B a/p no osteomyelitis or abscess on the MRI suspect this is all mechanical from her bunion can d/c vancomycin and zosyn, switch to po augmentin for one week further reccomendations per podiatry poorly controlled DM- needs better diabetes management Problem List - Problems (1) Non-healing ulcer of foot Code(s): L97.509 - NON-PRESSURE CHRONIC ULCER OTH PRT UNSP FOOT W UNSP SEVERITY (2) Diabetes mellitus Code(s): E11.9 - TYPE 2 DIABETES MELLITUS WITHOUT COMPLICATIONS
[2019-05-29] MEDS ORDERED: VANCOMYCIN 1 GRAM (PRE-DOCKED) 1,000 MG/250 ML BAG IVPB SCH (18:00)
[2019-05-29] MEDS ORDERED: INSULIN (NOVOLOG) ASPART 100 UNITS/ML 10ML VIAL ONE (21:35)
[2019-05-29] MEDS: DONEPEZIL HCL 5 MG TABLET (FP) PO SCH (22:05)
[2019-05-29] MEDS: traZODone HCL 50 MG TABLET (FP) PO SCH (22:05)
[2019-05-29] MEDS: METOPROLOL TARTRATE 25 MG TABLET (FP) PO SCH (22:06)
[2019-05-29] MEDS: QUEtiapine FUMARATE 25 MG TABLET (FP) PO SCH (22:07)
[2019-05-30] MEDS ORDERED: PIPERACILLIN/TAZOBACTAM 3.375 GM VIAL IVPB ONE ×2 (03:13→10:06)
[2019-05-30] MEDS ORDERED: DEXTROSE 5%-WATER - 50 ML IVPB ONE ×2 (03:14→10:06)
[2019-05-30] MEDS: PIPERACILLIN/TAZOB 3.375 GM 3.375 GM in DEXTROSE 5%-WATER - 50 ML IVPB SCH ×2 (03:15→10:18)
[2019-05-30] MEDS: HEPARIN NA (PORCINE) 5,000 UNITS/ML 1ML VIAL SQ SCH ×2 (06:24→14:27)
[2019-05-30] MEDS: INSULIN (LEVEMIR) 100 UNITS/ML UNITS SQ SCH (06:24)
[2019-05-30] MEDS: INSULIN SLIDING SCALE (NOVOLOG) 1 VIAL SQ SCH ×2 (06:25→11:47)
[2019-05-30 07:14] LABS: BASO % 0.4 % (0-2.0); EOS % 6.7 % (0-4.5); HEMATOCRIT 31.1 % (32.4-45.2); HEMOGLOBIN 10.5 GM/dL (10.7-15.3); LYMPH % 27.8 % (8-40); MCH 27.6 pg (25.7-33.7); MCHC 33.8 g/dl (32.0-36.0); MEAN CELL VOLUME 81.7 fl (80-96); MEAN PLT VOLUME 7.4 fl (7.5-11.1); MONO % 7.1 % (3.8-10.2); PLATELET COUNT 297 K/MM3 (134-434); RBC 3.81 M/mm3 (3.60-5.2); RDW 14.9 % (11.6-15.6); WHITE BLOOD COUNT 6.4 K/mm3 (4.0-10.0)
[2019-05-30 07:43] LABS: BLOOD UREA NITROGEN 21.6 mg/dL (7-18); CALCIUM 8.8 mg/dL (8.5-10.1); MAGNESIUM 2.4 mg/dL (1.8-2.4); PHOSPHOROUS 4.3 mg/dL (2.5-4.9); POTASSIUM 3.9 mmol/L (3.5-5.1)
--- NOTE | 2019-05-30 09:04 | PN ---
Progress Note (short form) - Note Progress Note: Patient seen on bed. Eager to go home vss +improved and resolved wound 5th toe left, right 1st mpj area improved, om right 1st mpj area ?, esr=96 om right 1st mpj ? resolved wound 5th toe medially Reviewed left foot xray and right foot MRI. Chronicity of wound right 1st mpj and elevated esr are of concern. Patient also needs vascular consult to be done as navix study showed pathology. Will follow. Abx as per ID.
[2019-05-30] MEDS ORDERED: PT OWN MED DRAWER 7, Y5N ONE (10:06)
[2019-05-30] MEDS: NIFEdipine E.R. 30 MG TABLET (FP) PO SCH (10:16)
[2019-05-30] MEDS: CLOPIDOGREL BISULFATE 75 MG TABLET (FP) PO SCH (10:16)
[2019-05-30] MEDS: METOPROLOL TARTRATE 25 MG TABLET (FP) PO SCH (10:16)
[2019-05-30] MEDS: LOSARTAN POTASSIUM 50 MG TABLET (FP) PO SCH (10:16)
[2019-05-30] MEDS: ASPIRIN COATED 81 MG TABLET.EC PO SCH (10:18)
[2019-05-30] MEDS: busPIRone HCL 10 MG TABLET (FP) PO SCH (10:18)
--- NOTE | 2019-05-30 12:32 | DS ---
Physical Examination Vital Signs: Vital Signs Temperature 36.8 C 05/30/19 05:50 Pulse Rate 67 05/30/19 05:50 Respiratory Rate 18 05/30/19 05:50 Blood Pressure 153/80 05/30/19 05:50 O2 Sat by Pulse Oximetry (%) 98 05/29/19 21:00 Constitutional: Yes: Well Nourished, No Distress, Calm Cardiovascular: Yes: Regular Rate and Rhythm. No: Gallop, Murmur, Rub Respiratory: Yes: Regular, CTA Bilaterally. No: Rales, Rhonchi, Wheezes Gastrointestinal: Yes: Normal Bowel Sounds, Soft. No: Distention, Tenderness Extremities: Yes: Other (R foot wrapped) Edema: No Labs: CBC, BMP 05/30/19 06:35 05/30/19 06:35 Discharge Summary Reason For Visit: DIABETIC FOOT ULCER Current Active Problems Dementia (Acute) Diabetic foot (Acute) Non-healing ulcer of foot (Acute) Hospital Course: (1) Diabetic foot Code(s): E11.8 - TYPE 2 DIABETES MELLITUS WITH UNSPECIFIED COMPLICATIONS (2) Diabetes mellitus Code(s): E11.9 - TYPE 2 DIABETES MELLITUS WITHOUT COMPLICATIONS (3) HTN (hypertension) Code(s): I10 - ESSENTIAL (PRIMARY) HYPERTENSION Qualifiers: Hypertension type: unspecified Qualified Code(s): I10 - Essential (primary ) hypertension (4) Dementia Code(s): F03.90 - UNSPECIFIED DEMENTIA WITHOUT BEHAVIORAL DISTURBANCE (5) Anxiety Code(s): F41.9 - ANXIETY DISORDER, UNSPECIFIED (6) TIA (transient ischemic attack) Code(s): G45.9 - TRANSIENT CEREBRAL ISCHEMIC ATTACK, UNSPECIFIED Qualifiers: Transient cerebral ischemia type: unspecified Qualified Code(s): G45.9 - Transient cerebral ischemic attack, unspecified Ms Pierce is a pleasant 83 year old female who came in with R foot wound infection with concern for osteomyelitis. She was seen by ID and started on vancomycin and zosyn. She was seen by podiatry and vascular surgery as well. She underwent MRI of her R foot which was read as no osteomyelitis. She has a current wound infection that is healing. Because of this she is safe to finish her course with augmentin x1 week. She was instructed to wear the proper footwear, per her daughter she has been resistant to this. She is safe for discharge home today. 32 minutes spent in preparing this discharge Condition: Good - Instructions Diet, Activity, Other Instructions: diabetic diet. resume previous activity. please wear proper footwear on the right foot to prevent further damage. Referrals: Ginny Van MD [Primary Care Provider] - Cherri Perla DPM [Staff Physician] - Disposition: HOME - Home Medications Comprehensive Discharge Medication List: Ambulatory Orders Aspirin [Aspirin EC] 81 mg PO DAILY 08/17/17 Donepezil HCl [Aricept -] 5 mg PO DAILY 08/17/17 Buspirone HCl [Buspar -] 10 mg PO BID #60 tablet 09/11/17 metFORMIN HCL [Metformin HCl] 500 mg PO BID #0 tab 09/11/17 Clopidogrel Bisulfate [Plavix] 75 mg PO DAILY 05/27/19 Insulin Aspart [Novolog] 20 unit SQ BID 05/27/19 Insulin Degludec [Tresiba] 40 unit SQ DAILY 05/27/19 Quetiapine Fumarate [Seroquel -] 25 mg PO HS 05/27/19 Trazodone HCl 150 mg PO DAILY 05/27/19 Losartan Potassium 100 mg PO DAILY 05/28/19 Amlodipine Besylate [Norvasc -] 10 mg PO DAILY #30 tablet 05/30/19 Metoprolol Tartrate [Lopressor -] 25 mg PO BID #60 tablet 05/30/19
[2019-05-30 13:33] VITALS: BP 143/76
[2019-05-30 13:44] VITALS: PULSE 70; TEMP 98.3
== END 2019-05-30 18:54 | disposition home or self-care (01) | DRG 639 ==
LOC: JER 13:42 → JERBED 17:13 → J6S 19:43
PROVIDERS: ADMIT Internal Medicine; ATTEND Internal Medicine
DX: E11.621 Type 2 diabetes mellitus with foot ulcer (principal); I10 Essential (primary) hypertension; Z79.4 Long term (current) use of insulin; L97.519 Non-pressure chronic ulcer of other part of right foot with unspecified severity; Z86.73 Personal history of transient ischemic attack (TIA), and cerebral infarction without residual deficits; G47.00 Insomnia, unspecified; F41.9 Anxiety disorder, unspecified; F03.90 Unspecified dementia, unspecified severity, without behavioral disturbance, psychotic disturbance, mood disturbance, and anxiety; E66.9 Obesity, unspecified; Z91.013 Allergy to seafood; F31.9 Bipolar disorder, unspecified; E11.42 Type 2 diabetes mellitus with diabetic polyneuropathy; E11.51 Type 2 diabetes mellitus with diabetic peripheral angiopathy without gangrene; R82.71 Bacteriuria; D64.9 Anemia, unspecified; Z68.31 Body mass index [BMI] 31.0-31.9, adult
CPT/HCPCS: 36415; 71045-TC-FY; 73630-TC-LT; 73660-TC-FY; 73721-RT-TC; 80048; 80053; 80061; 81003; 82962; 83036; 83605; 83721; 83735; 84100; 85025; 85610; 85651; 85730; 86140; 87040; 87070; 87077; 87086; 87205; 93005; 93010; 97116-GP; 97161-GP; 99281-25; G0463-25; J1644

== ENCOUNTER 2019-06-12 16:23 | Inpatient (IN) | payer OTHER ==
--- NOTE | 2019-06-12 16:48 | PDOC ---
History of Present Illness - General Chief Complaint: Wound Stated Complaint: WOUND INFECTION Time Seen by Provider: 06/12/19 16:47 History Source: Patient, Family Exam Limitations: No Limitations - History of Present Illness Initial Comments: 06/12/19 17:14 Source: Pt and daughter at bedside CC: infected diabetic foot ulcer for 1 week (admission 05/27-05/30) HPI: 83F with PMH of DM, HTN, TIA, presenting for non-healing right foot ulcer. Admitted 05/27-05/30 for nonhealing ulcer on her right foot, given IV abx, MRI without osteo, sent homer with Rx for Augmentin that daughter reports was never filled. Wound continued to heal for one week before starting to worsen with increased pain to the point of reduced ambulation and swelling along the dorsum of the foot to the later malleolus for the past 2-3 days and purulent drainage noted by daughter earlier today - she cleaned the wound and surrounding skin with iodine prior to presentation. Denies subjective fevers, chills, SOB, CP, or other systemic symptoms. PMH: as above Allergies: shellfish, NKDA Meds: per chart, no chances since discharge Past History - Travel Traveled outside of the country in the last 30 days: No Close contact w/someone who was outside of country & ill: No - Past Medical History Allergies/Adverse Reactions: Allergies Allergy/AdvReac Type Severity Reaction Status Date / Time shellfish derived Allergy Verified 06/12/19 16:25 Home Medications: Ambulatory Orders Aspirin [Aspirin EC] 81 mg PO DAILY 08/17/17 Donepezil HCl [Aricept -] 5 mg PO DAILY 08/17/17 Buspirone HCl [Buspar -] 10 mg PO BID #60 tablet 09/11/17 metFORMIN HCL [Metformin HCl] 500 mg PO BID #0 tab 09/11/17 Clopidogrel Bisulfate [Plavix] 75 mg PO DAILY 05/27/19 Insulin Aspart [Novolog] 20 unit SQ BID 05/27/19 Insulin Degludec [Tresiba] 40 unit SQ DAILY 05/27/19 Quetiapine Fumarate [Seroquel -] 25 mg PO HS 05/27/19 Trazodone HCl 150 mg PO DAILY 05/27/19 Losartan Potassium 100 mg PO DAILY 05/28/19 Amlodipine Besylate [Norvasc -] 10 mg PO DAILY #30 tablet 05/30/19 Amox-Tr/K Cl [Augmentin - 875Mg Tablet] 1 tab PO BID #14 tablet 05/30/19 Metoprolol Tartrate [Lopressor -] 25 mg PO BID #60 tablet 05/30/19 Anemia: No Asthma: No Cancer: No Cardiac Disorders: No CVA: No COPD: No CHF: No Dementia: No Diabetes: Yes GI Disorders: No Disorders: No HTN: Yes Hypercholesterolemia: No Liver Disease: No Psychiatric Problems: Yes (anxiety) Seizures: No Thyroid Disease: Yes - Surgical History Abdominal Surgery: No Appendectomy: No Cardiac Surgery: No Cholecystectomy: Yes Lung Surgery: No Neurologic Surgery: No Orthopedic Surgery: No - Immunization History Immunization Up to Date: Yes - Suicide/Smoking/Psychosocial Hx Smoking History: Never smoked Have you smoked in the past 12 months: No Hx Alcohol Use: No Drug/Substance Use Hx: No Substance Use Type: None Hx Substance Use Treatment: No Review of Systems - Review of Systems Able to Perform ROS?: Yes (Via daughter translation) Is the patient limited [place]i proficient: Yes Constitutional: No: Symptoms Reported, Chills, Fever, Loss of Appetite, Night Sweats, Weakness, Weight Stable HEENTM: No: Symptoms Reported Respiratory: No: Symptoms reported, Cough, Shortness of Breath Cardiac (ROS): No: Symptoms Reported, Chest Pain, Irregular Heart Rate, Palpitations, Syncope ABD/GI: No: Symptoms Reported : No: Symptoms Reported Musculoskeletal: No: Symptoms Reported Integumentary: Yes: Symptoms Reported, Lesions, Lumps, Other (right foot ulcer with swelling on dorsum of foot) Neurological: No: Symptoms reported All Other Systems: Reviewed and Negative *Physical Exam - Vital Signs Last Vital Signs Temp Pulse Resp BP Pulse Ox 98.2 F 84 16 164/73 100 06/12/19 16:26 06/12/19 16:26 06/12/19 16:26 06/12/19 16:26 06/12/19 16:26 - Physical Exam Comments: 06/12/19 17:21 Vital: AFVSS Gen: WDWN woman, resting in bed, shoes off with iodine surrounded bump with central ulceration on her right foot CV: RRR, nl s1/s2, no murmurs appreciated Pulm: CTABL, normal WOB, no wheezes Abd: soft, nontender, nondistended Skin: swollen dorsum of right foot, mildly warmer than left foot, notably more swollen, nonerythematous, some purulence noted at central ulceration, no lymphatic tracking, no rash, TTP, firm around wound Neuro: Alert and oriented, MAEE, CN grossly intact Pulses: 2+ radial and DP ED Treatment Course - LABORATORY CBC & Chemistry Diagram: 06/12/19 18:05 06/12/19 18:05 Medical Decision Making - Medical Decision Making 06/12/19 17:25 83F with PMH of DM, HTN, TIA, presenting for non-healing right foot ulcer recently discharged on 05/30 non-compliant with PO Augmentin at home now with purulence and painful / difficult ambulation. Concerning for developing cellulitis adjacent to infected ulcer in setting of medication non-adherence, also concerning for possible osteo in two untreated weeks since discharge/MRI. Likely admission for non-healing infected ulcer and cellulitis. -CBC, CMP, BCx -EKG, CXR -R foot Xray 06/12/19 18:59 -Labs largely unremarkable, mild leukocytosis, mild hyponatremia -Pending read on XRAYs -Vanc 1g / Zosyn 3.375mg ordered 06/12/19 19:30 Pt endorsed to inpatient team via MBMD *DC/Admit/Observation/Transfer Diagnosis at time of Disposition: Non-healing ulcer of foot, Diabetic foot - Discharge Dispostion Condition at time of disposition: Guarded Decision to Admit order: Yes - Referrals Referrals: Ginny Van MD [Primary Care Provider] - - Patient Instructions - Post Discharge Activity
--- NOTE | 2019-06-12 17:06 | PDOC ---
Attending Attestation - Resident Resident Name: Serge Holland - ED Attending Attestation I have performed the following: I have examined & evaluated the patient, The case was reviewed & discussed with the resident, I agree w/resident's findings & plan, Exceptions are as noted - HPI HPI: 06/12/19 17:05 83y F hx of htm, cva, dm, with recent admission for nonhealing diabetic foot ulcer and discharged 05/30 for a nonhealing ulcer on R foot, received a course of abx, mri showing no osteo and discharged on abx (pt never filled rx). The wound appeared to be healing well at discharge, however approx 7 days later, there was increased swelling/redness and pain of the R foot. Pts daughter went to clean it today and noticed yellowish discharge so came for evautaion. Pt denies any fever/chills, cp, sob, abd pain, n/v, diarrhea, dysuria. PMD: Dr. Oliver GENERAL: The patient is awake, alert, and fully oriented, Nontoxic - in no acute distress. HEAD: Normocephalic, atraumatic. EYES: extraocular movements intact, sclera anicteric, conjunctiva clear. ENT: Normal voice, Moist mucous membranes. NECK: Normal range of motion, supple LUNGS: Breath sounds equal, clear to auscultation bilaterally. No wheezes, no rhonchi, no rales. HEART: Regular rate and rhythm, normal S1 and S2 without murmur, rub or gallop. ABDOMEN: Soft, nontender, No guarding, no rebound. No CVA tenderness NEUROLOGICAL: No facial assymetry, Normal speech, PSYCH: Normal mood, normal affect. SKIN: Warm, Dry, normal turgor, EXTREMITIES: Normal range of motion, no edema. R foot : mild erythema/warmth/swelling of dorsum of R foot with puncture wound on lateral 1st MCP, no active flctuance, discharge currently and unable to express discharge suspect recurrent, worsening dm wound. no signs of systemic invovlement/sepsis will obtain xray to r/o osteo labs abx anticipate admission - Physicial Exam PE: 06/14/19 17:48 see above - Medical Decision Making 06/12/19 19:26 patient's lab results were reviewed xray of foot suggestive of periosteal reaction pt written for abx will admit for further managment Heart Score/ECG Review - ECG Impressions Comment:: 06/12/19 21:09 Twelve-lead EKG was performed and reviewed by me. There is normal sinus rhythm with a normal rate. rate of 79 The axis is normal. The intervals are normal. There is normal R wave progression nonspecific TWI
[2019-06-12 18:11] LABS: BASO % 0.8 % (0-2.0); EOS % 0.3 % (0-4.5); HEMATOCRIT 29.4 % (32.4-45.2); HEMOGLOBIN 9.8 GM/dL (10.7-15.3); LYMPH % 17.3 % (8-40); MCH 27.6 pg (25.7-33.7); MCHC 33.3 g/dl (32.0-36.0); MEAN CELL VOLUME 82.9 fl (80-96); MEAN PLT VOLUME 7.8 fl (7.5-11.1); MONO % 6.3 % (3.8-10.2); NEUT % 75.3 % (42.8-82.8); PLATELET COUNT 299 K/MM3 (134-434); RBC 3.54 M/mm3 (3.60-5.2); RDW 15.4 % (11.6-15.6); WHITE BLOOD COUNT 10.5 K/mm3 (4.0-10.0)
[2019-06-12 18:40] LABS: ALBUMIN 3.1 g/dl (3.4-5.0); BILIRUBIN,TOTAL 0.2 mg/dL (0.2-1); BLOOD UREA NITROGEN 25.4 mg/dL (7-18); CALCIUM 8.8 mg/dL (8.5-10.1); CREATININE 1.1 mg/dL (0.55-1.3); POTASSIUM 4.7 mmol/L (3.5-5.1); TOT PROT 7.6 g/dl (6.4-8.2)
[2019-06-12] MEDS ORDERED: VANCOMYCIN 1 GM in D5W (PRE-DOCKED) 1,000 MG/250 ML IVPB ONE (19:15)
[2019-06-12] MEDS ORDERED: PIPERACILLIN/TAZOB 3.375 GM 3.375 GM in DEXTROSE 5%-WATER - 50 ML IVPB ONE (19:17)
[2019-06-12] MEDS ORDERED: VANCOMYCIN 1 GRAM (PRE-DOCKED) 1,000 MG/250 ML BAG IVPB ONE (19:59)
[2019-06-12] MEDS ORDERED: PIPERACILLIN/TAZOB 3.375 GM 3.375 GM/50 ML BAG IVPB ONE (19:59)
--- NOTE | 2019-06-12 20:22 | PN ---
Teaching Attending Note ATTENDING PHYSICIAN STATEMENT I saw and evaluated the patient. I reviewed the resident's note and discussed the case with the resident. I agree with the resident's findings and plan as documented. Seen and examined; please refer to resident note for further historical information. Briefly, patient recently discharged for wound infection with osteomyelitis ruled out; she has a diabetic LE wound on her RLE. New leukocytosis compared to DC but afebrile and hemodynaically stable. Completed course of Augmentin. Rest of history per sales management intern note. 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 She had an instance of hematuria recetnly she saw her PCP for; Hb 0.9g lower than at [place]. No UA obtained before abx with OP UA pending. Home Medications Medication Instructions Recorded Aspirin [Aspirin EC] 81 mg PO DAILY 08/17/17 Donepezil HCl [Aricept -] 5 mg PO DAILY 08/17/17 Buspirone HCl [Buspar -] 10 mg PO BID #60 tablet 09/11/17 metFORMIN HCL [Metformin HCl] 500 mg PO BID #0 tab 09/11/17 Clopidogrel Bisulfate [Plavix] 75 mg PO DAILY 05/27/19 Insulin Aspart [Novolog] 20 unit SQ BID 05/27/19 Insulin Degludec [Tresiba] 40 unit SQ DAILY 05/27/19 Quetiapine Fumarate [Seroquel -] 25 mg PO HS 05/27/19 Trazodone HCl 150 mg PO DAILY 05/27/19 Losartan Potassium 100 mg PO DAILY 05/28/19 Amlodipine Besylate [Norvasc -] 10 mg PO DAILY #30 tablet 05/30/19 Amox-Tr/K Cl [Augmentin - 875Mg 1 tab PO BID #14 tablet 05/30/19 Tablet] Metoprolol Tartrate [Lopressor -] 25 mg PO BID #60 tablet 05/30/19 VS, labs, imaging reviewed NAD, AAO, resting in bed RRR s1/2 no mgr Lungs CTAB, w/ sym exp NT ND +BS CN2-12 wnl, no fnd +pedal pulses with DM ulcer and some surrounding cellulitis noted Foot XR pending; no evidence of osteo ESR/CRP pending MRI reviewed ASSESSMENT AND PLAN: Patient is a 83 y/o female presenting back to the ER for worsening of her existing DM foot infection. She is afebrile with a slight WBC count, ESR and CRP pending. Having podiatry see her; covered initially with broad spectrum abx. # DM Foot wound, recurring # Dementia # HTN # Normocytic anemia with 0.9g drop and elevated BUN # DM2 with hyperglycemia
[2019-06-12] MEDS ORDERED: ACETAMINOPHEN 325 MG TABLET (FP) PO PRN (20:36)
--- NOTE | 2019-06-12 20:37 | HP ---
CHIEF COMPLAINT: 83 year old female with PMH significant for DM, HTN, and HLD presented to the ER with 3 month old ulcer on right MTP which has recently started producing a yellow discharge and has become painful and swollen over the past 4 days. PCP: Dr. Ginny Oliver HISTORY OF PRESENT ILLNESS: The patient is an 83 year old female with PMH significant for DM, HTN, and HLD. She presented to the ER with complaints of a 3 month old ulcer on the medial aspect of the 1st MTP joint on her right foot, associated with painful swelling and yellow discharge over the past 3 days, as well as small ulcer on the medial aspect of the 5th toe on her left foot. The patient initially noticed the ulcer 3 months ago when she felt some discomfort while walking and noticed an ulcer on her 1st MTP joint on her right foot. She presented to the [facility] ER, where she had a foot X Ray, and was treated with antibiotics before being discharged. 1 week later, she visited her PCP, Dr. Ginny Oliver, who referred her to Dr. Monroe, a theatrical scenic designer. He cleaned the wound, and prescribed antibiotics and an ointment. She followed up with Dr. Monroe, who referred her to Dr. Perla, who she visited [address] Perla referred her to the [facility] ER for workup of diabetic foot ulcer, where she was admitted from 05/27-05/30. While admitted, she was treated with Vanc and Zosyn, MRI of her foot showed no evidence of osteomyelitis, nor did Bone Scan done on 05/15. She was discharged on 1 wk of Augmentin PO, which she did not take. Episode of possible hematuria 2 days ago. During voiding, patient noticed her initial stream of urine was red, but was normal near the end of her stream. No associated dysuria, fever, chills. She presented to PCP 2 days ago and is awaiting results for her urine test at the clinic. ER course was notable for: (1) IV Vanc and Zosyn (2) Foot X ray (3) Blood cx (4) POC Glucose 350, 8 units Insulin SQ ONCE Recent Travel: PAST MEDICAL HISTORY: 11/01 admitted for TIA workup (negative CT, MRI, ECHO) 06/01 syncope due to orthostatic hypotension 09/02 metabolic enceph & uncontrolled hyperglycemia PAST SURGICAL HISTORY: Cataract surgery over 20 years ago over 20 years ago Social History: Smoking:none Alcohol:none Drugs: none Family History: Allergies shellfish derived Allergy (Verified 06/12/19 16:25) HOME MEDICATIONS: Home Medications Medication Instructions Recorded Aspirin [Aspirin EC] 81 mg PO DAILY 08/17/17 Donepezil HCl [Aricept -] 5 mg PO DAILY 08/17/17 Buspirone HCl [Buspar -] 10 mg PO BID #60 tablet 09/11/17 metFORMIN HCL [Metformin HCl] 500 mg PO BID #0 tab 09/11/17 Clopidogrel Bisulfate [Plavix] 75 mg PO DAILY 05/27/19 Insulin Aspart [Novolog] 20 unit SQ BID 05/27/19 Insulin Degludec [Tresiba] 40 unit SQ DAILY 05/27/19 Quetiapine Fumarate [Seroquel -] 25 mg PO HS 05/27/19 Trazodone HCl 150 mg PO DAILY 05/27/19 Losartan Potassium 100 mg PO DAILY 05/28/19 Amlodipine Besylate [Norvasc -] 10 mg PO DAILY #30 tablet 05/30/19 Amox-Tr/K Cl [Augmentin - 875Mg 1 tab PO BID #14 tablet 05/30/19 Tablet] Metoprolol Tartrate [Lopressor -] 25 mg PO BID #60 tablet 05/30/19 REVIEW OF SYSTEMS CONSTITUTIONAL: Absent: fever, chills, diaphoresis, generalized weakness, malaise, loss of appetite, weight change HEENT: Absent: rhinorrhea, nasal congestion, throat pain, throat swelling, difficulty swallowing, mouth swelling, ear pain, eye pain, visual changes CARDIOVASCULAR: Absent: chest pain, syncope, palpitations, irregular heart rate, lightheadedness , peripheral edema RESPIRATORY: Absent: cough, shortness of breath, dyspnea with exertion, orthopnea, wheezing, stridor, hemoptysis GASTROINTESTINAL: Absent: abdominal pain, abdominal distension, nausea, vomiting, diarrhea, constipation, melena, hematochezia GENITOURINARY: Absent: dysuria, frequency, urgency, hesitancy, hematuria, flank pain, genital pain MUSCULOSKELETAL: Absent: myalgia, arthralgia, joint swelling, back pain, neck pain SKIN: Absent: rash, itching, pallor HEMATOLOGIC/IMMUNOLOGIC: Absent: easy bleeding, easy bruising, lymphadenopathy, frequent infections ENDOCRINE: Absent: unexplained weight gain, unexplained weight loss, heat intolerance, cold intolerance NEUROLOGIC: Absent: headache, focal weakness or paresthesias, dizziness, unsteady gait, seizure, mental status changes, bladder or bowel incontinence PSYCHIATRIC: Absent: anxiety, depression, suicidal or homicidal ideation, hallucinations. PHYSICAL EXAMINATION Vital Signs - 24 hr 06/12/19 16:26 Temperature 98.2 F Pulse Rate 84 Respiratory 16 Rate Blood Pressure 164/73 O2 Sat by Pulse 100 Oximetry (%) GENERAL: Awake, AOx4 HEAD: Normal with no signs of trauma. EYES: Pupils equal, round and reactive to light, extraocular movements intact, sclera anicteric, conjunctiva clear. No lid lag. NECK: Normal range of motion, supple without lymphadenopathy, JVD, or masses. LUNGS: Breath sounds equal, clear to auscultation bilaterally. No wheezes, and no crackles. No accessory muscle use. HEART: Regular rate and rhythm, normal S1 and S2 without murmur, rub or gallop. ABDOMEN: Soft, nontender, not distended, normoactive bowel sounds, no guarding, no rebound, no masses. MUSCULOSKELETAL: UPPER EXTREMITIES: 2+ pulses, warm, well-perfused. No cyanosis. No clubbing. No peripheral edema. LOWER EXTREMITIES: Grade 2 ulcer on the medial aspect of the 1st MTP joint on her right foot, Fluctuant and erythematous swelling over left ankle, lateral half of dorsal surface of the foot, and all 5 MTP joints. Small grade 2 ulcer present on medial aspect of 5th toe, with no discharge or swelling. NEUROLOGICAL: Normal speech. Normal gait. PSYCHIATRIC: Cooperative. Good eye contact. Appropriate mood and affect. SKIN: Warm, dry, normal turgor, no rashes or lesions noted, normal capillary refill. Laboratory Results - last 24 hr 06/12/19 06/12/19 18:05 18:05 WBC 10.5 H RBC 3.54 L Hgb 9.8 L Hct 29.4 L MCV 82.9 MCH 27.6 MCHC 33.3 RDW 15.4 Plt Count 299 MPV 7.8 Absolute Neuts (auto) 7.9 Neutrophils % 75.3 D Lymphocytes % 17.3 D Monocytes % 6.3 Eosinophils % 0.3 D Basophils % 0.8 Nucleated RBC % 0 Sodium 134 L Potassium 4.7 Chloride 100 Carbon Dioxide 29 Anion Gap 5 L BUN 25.4 H Creatinine 1.1 Est GFR (CKD-EPI)AfAm 54.15 Est GFR (CKD-EPI)NonAf 46.72 Random Glucose 190 H Calcium 8.8 Total Bilirubin 0.2 AST 22 ALT 22 Alkaline Phosphatase 76 Total Protein 7.6 Albumin 3.1 L ASSESSMENT/PLAN: #Diabetic foot ulcer/cellulitis - Suspicion of cellulitis and possible osteomyelitis on account of non compliance with prescribed abx after being d/c 2 weeks ago. - IV Vanc Zosyn, dosage as per pharm recc - Podiatry, ID consults pending - CXR no acute pathology - Blood cx pending - last visit ESR 96, CRP 1.3, f/u repeats - EKG NSR #PAD risk - vascular consult outpatient #FEN - Diabetic Diet #DVT PE - Heparin SQ Visit type - Emergency Visit Emergency Visit: Yes ED Registration Date: 06/12/19 Care time: The patient presented to the Emergency Department on the above date and was hospitalized for further evaluation of their emergent condition. - New Patient This patient is new to me today: Yes Date on this admission: 06/13/19 - Critical Care Critical Care patient: No ATTENDING PHYSICIAN STATEMENT I saw and evaluated the patient. I reviewed the resident's note and discussed the case with the resident. I agree with the resident's findings and plan as documented. SUBJECTIVE: OBJECTIVE: ASSESSMENT AND PLAN:
[2019-06-12] MEDS: INSULIN SLIDING SCALE (NOVOLOG) 1 VIAL SQ SCH (22:01)
[2019-06-12] MEDS ORDERED: HEPARIN NA (PORCINE) 5,000 UNITS/ML 1ML VIAL ONE (22:05)
[2019-06-12] MEDS ORDERED: busPIRone HCL 5 MG TABLET ONE (22:05)
[2019-06-12] MEDS: HEPARIN NA (PORCINE) 5,000 UNITS/ML 1ML VIAL SQ SCH (22:29)
[2019-06-12] MEDS: METOPROLOL TARTRATE 25 MG TABLET (FP) PO SCH (22:29)
[2019-06-12] MEDS: busPIRone HCL 10 MG TABLET (FP) PO SCH (22:29)
[2019-06-12] MEDS: QUEtiapine FUMARATE 25 MG TABLET (FP) PO SCH (22:29)
[2019-06-12] MEDS ORDERED: INSULIN REGULAR HUMAN 100 UNITS/ML *VIAL ONE (22:54)
[2019-06-12] MEDS ORDERED: INSULIN (LEVEMIR) 100 UNITS/ML UNITS SQ ONE (22:56)
[2019-06-13] MEDS ORDERED: PIPERACILLIN/TAZOB 3.375 GM 3.375 GM in DEXTROSE 5%-WATER - 50 ML IVPB SCH ×2 (02:00→18:00)
[2019-06-13 05:44] LABS: HYALINE CASTS 2 /lpf (0-8); PH,URINE 6.5 (5.0-8.0); URINE APPEARANCE CLEAR; URINE BACTERIA 5.1 /hpf (NEGATIVE); URINE BILIRUBIN NEGATIVE (NEGATIVE); URINE COLOR YELLOW; URINE GLUCOSE (UA) 1+ (NEGATIVE); URINE KETONE NEGATIVE (NEGATIVE); URINE LEUK ESTERASE 2+ (NEGATIVE); URINE NITRITE POSITIVE (NEGATIVE); URINE PROTEIN 1+ (NEGATIVE); URINE RBC 2 /hpf (0-4); URINE UROBILINOGEN 0.2 mg/dL (0.2-1.0); URINE WBC 70 /hpf (0-5)
[2019-06-13] MEDS: INSULIN SLIDING SCALE (NOVOLOG) 1 VIAL SQ SCH ×4 (06:39→17:14)
[2019-06-13] MEDS: HEPARIN NA (PORCINE) 5,000 UNITS/ML 1ML VIAL SQ SCH ×3 (06:39→22:28)
[2019-06-13] MEDS ORDERED: INSULIN (NOVOLOG) ASPART 100 UNITS/ML 10ML VIAL ONE (06:57)
[2019-06-13 07:48] LABS: BASO % 0.3 % (0-2.0); EOS % 1.3 % (0-4.5); HEMATOCRIT 28.7 % (32.4-45.2); HEMOGLOBIN 9.7 GM/dL (10.7-15.3); LYMPH % 24.8 % (8-40); MCH 27.8 pg (25.7-33.7); MCHC 33.8 g/dl (32.0-36.0); MEAN CELL VOLUME 82.2 fl (80-96); MEAN PLT VOLUME 7.8 fl (7.5-11.1); MONO % 7.9 % (3.8-10.2); NEUT % 65.7 % (42.8-82.8); PLATELET COUNT 289 K/MM3 (134-434); RBC 3.49 M/mm3 (3.60-5.2); WHITE BLOOD COUNT 7.3 K/mm3 (4.0-10.0)
[2019-06-13 08:09] LABS: ALBUMIN 2.8 g/dl (3.4-5.0); BILIRUBIN,TOTAL 0.4 mg/dL (0.2-1); BLOOD UREA NITROGEN 17.6 mg/dL (7-18); CALCIUM 8.6 mg/dL (8.5-10.1); MAGNESIUM 2.2 mg/dL (1.8-2.4); PHOSPHOROUS 3.7 mg/dL (2.5-4.9); POTASSIUM 4.5 mmol/L (3.5-5.1); TOT PROT 7.2 g/dl (6.4-8.2)
[2019-06-13] MEDS ORDERED: PT OWN MED DRAWER 7, Y5N ONE (09:09)
[2019-06-13] MEDS: ASPIRIN COATED 81 MG TABLET.EC PO SCH (09:11)
[2019-06-13] MEDS: amLODIPine BESYLATE 10 MG TABLET (FP) PO SCH (09:11)
[2019-06-13] MEDS: LOSARTAN POTASSIUM 50 MG TABLET (FP) PO SCH (09:11)
[2019-06-13] MEDS: CLOPIDOGREL BISULFATE 75 MG TABLET (FP) PO SCH (09:11)
[2019-06-13] MEDS: METOPROLOL TARTRATE 25 MG TABLET (FP) PO SCH ×2 (09:11→22:28)
[2019-06-13] MEDS: busPIRone HCL 10 MG TABLET (FP) PO SCH ×2 (09:11→22:27)
[2019-06-13] MEDS ORDERED: traZODone HCL 150 MG TABLET PO SCH (10:00)
--- NOTE | 2019-06-13 10:32 | EKG ---
Test Reason : Blood Pressure : / mmHG Vent. Rate : 079 BPM Atrial Rate : 079 BPM P-R Int : 184 ms QRS Dur : 084 ms QT Int : 378 ms P-R-T Axes : 065 035 083 degrees QTc Int : 433 ms NORMAL SINUS RHYTHM NONSPECIFIC T WAVE ABNORMALITY ABNORMAL ECG WHEN COMPARED WITH ECG OF 27-MAY-2019 14:35, NO SIGNIFICANT CHANGE WAS FOUND Confirmed by NATALIA MOCTEZUMA MD ([id number]) on 06/13/2019 10:32:22 AM Referred By: Confirmed By:NATALIA MOCTEZUMA MD
--- NOTE | 2019-06-13 11:25 | PN ---
Progress Note (short form) - Note Progress Note: ID consult dictated d/w 83 yo diabetic female admitted with drainage from bunion site-recent admission 05/27 to 05/30- discharged on augmentin which she didnot take she has had a workup including mri/recent bone scan May 03 and MRI may 28- both negative for osteomyelitis she apparently does not not wear appropriate shoes and did d/w not take the augmentin as prescribed now reports 3 days of drainage from the bunion site- no erythema drainage is serosanguinous from the area- I sent a wound culture would treat with unasyn and f/u cultures would look for other causes of elevated inflammatory markers- new anemia noted she has had 2 recent imaging studies that are negative for osteomyelitis d/w hospitalist Problem List - Problems (1) Non-healing ulcer of foot Code(s): L97.509 - NON-PRESSURE CHRONIC ULCER OTH PRT UNSP FOOT W UNSP SEVERITY Qualifiers: Laterality: left (2) Anemia Code(s): D64.9 - ANEMIA, UNSPECIFIED
[2019-06-13] MEDS ORDERED: AMPICILLIN NA/SULBACTAM NA 1.5 GM in SODIUM CHLORIDE 100 ML IVPB SCH (11:30)
--- NOTE | 2019-06-13 12:22 | PN ---
Progress Note, Physician Chief Complaint: Ms Pierce is without complaint. Denies cp, sob, n/v. Does not want to wear special shoes as she says they are ugly. - Current Medication List Current Medications: Active Medications Acetaminophen (Tylenol -) 650 mg PO Q4H PRN PRN Reason: PAIN Last Admin: 06/12/19 23:58 Dose: 650 mg Amlodipine Besylate (Norvasc -) 10 mg PO DAILY [facility] Last Admin: 06/13/19 09:11 Dose: 10 mg Aspirin (Ecotrin -) 81 mg PO DAILY [facility] Last Admin: 06/13/19 09:11 Dose: 81 mg Buspirone HCl (Buspar -) 10 mg PO BID [facility] Last Admin: 06/13/19 09:11 Dose: 10 mg Clopidogrel Bisulfate (Plavix -) 75 mg PO DAILY [facility] Last Admin: 06/13/19 09:11 Dose: 75 mg Donepezil HCl (Aricept -) 5 mg PO [facility] Heparin Sodium (Porcine) (Heparin -) 5,000 unit SQ TID [facility] Last Admin: 06/13/19 06:39 Dose: 5,000 unit Ampicillin Sodium/Sulbactam (Sodium 1.5 gm/ Sodium Chloride) 100 mls @ 200 mls/ hr IVPB Q6H-IV [facility] Last Admin: 06/13/19 12:21 Dose: Not Given Insulin Aspart (Novolog Vial Sliding Scale -) 1 vial SQ ACHS [facility]; Protocol Last Admin: 06/13/19 11:17 Dose: 4 units Losartan Potassium (Cozaar -) 100 mg PO DAILY [facility] Last Admin: 06/13/19 09:11 Dose: 100 mg Metoprolol Tartrate (Lopressor -) 25 mg PO BID [facility] Last Admin: 06/13/19 09:11 Dose: 25 mg Quetiapine Fumarate (Seroquel -) 25 mg PO [facility] Last Admin: 06/12/19 22:29 Dose: 25 mg Trazodone HCl 100 mg/ (Trazodone HCl 50 mg) 150 mg PO [facility] - Objective Vital Signs: Vital Signs Temperature 36.9 C 06/13/19 09:00 Pulse Rate 78 06/13/19 09:00 Respiratory Rate 20 06/13/19 09:00 Blood Pressure 162/78 06/13/19 09:00 O2 Sat by Pulse Oximetry (%) 97 06/13/19 09:00 Constitutional: Yes: Well Nourished, No Distress, Calm Cardiovascular: Yes: Regular Rate and Rhythm. No: Gallop, Murmur, Rub Respiratory: Yes: Regular, CTA Bilaterally. No: Rales, Rhonchi, Wheezes Gastrointestinal: Yes: Normal Bowel Sounds, Soft. No: Distention, Tenderness Extremities: Yes: Other (bunion with serous fluid) Edema: No Labs: CBC, BMP 06/13/19 06:10 06/13/19 06:10 Problem List - Problems (1) Anemia Assessment/Plan: -unclear cause but progressing -will check anemia labs -will check stool guaiac -monitor Code(s): D64.9 - ANEMIA, UNSPECIFIED (2) Non-healing ulcer of foot Assessment/Plan: -does not look inflammed -case d/w Dr Corey -never took augmentin on discharge and did not follow up -start unasyn -follow up cultures -podiatry note reviewed, repeat MRI ordered -? chronic osteomyelitis causing elevation of ESR and CRP vs other cause -anemia work up as well Code(s): L97.509 - NON-PRESSURE CHRONIC ULCER OTH PRT UNSP FOOT W UNSP SEVERITY Qualifiers: Laterality: left (3) Dementia Assessment/Plan: -stable Code(s): F03.90 - UNSPECIFIED DEMENTIA WITHOUT BEHAVIORAL DISTURBANCE (4) Diabetes mellitus Assessment/Plan: -last time was well controlled on levemir 10 units bid and diabetic diet -will continue this again -FSBS and SSI Code(s): E11.9 - TYPE 2 DIABETES MELLITUS WITHOUT COMPLICATIONS (5) HTN (hypertension) Assessment/Plan: -continue amlodipine, cozaar, and metoprolol -monitor Code(s): I10 - ESSENTIAL (PRIMARY) HYPERTENSION Qualifiers: Hypertension type: unspecified Qualified Code(s): I10 - Essential (primary ) hypertension (6) Thyroid disease Code(s): E07.9 - DISORDER OF THYROID, UNSPECIFIED
--- NOTE | 2019-06-13 12:48 | CONSULT ---
Consult Consult Specialty:: Podiatry Reason for Consultation:: OM right foot? - History of Present Illness Chief Complaint: chronic wound right big toe joint. History of Present Illness: Patient is known to me but left hospital and never followed up for wound right foot. - History Source History Provided By: Medical Record - Past Medical History OWNER/OPERATOR: Yes: Peripheral Neuropathy, Other (cataract) Cardio/Vascular: Yes: HTN Gastrointestinal: Yes: GERD Renal/: Yes: Renal Inusuff ...: No Psych: Yes: Anxiety Endocrine: Yes: Diabetes Mellitus - Past Surgical History Past Surgical History: Yes: Cholecystectomy, - Alcohol/Substance Use Hx Alcohol Use: No History of Substance Use: reports: None - Smoking History Smoking history: Never smoked Have you smoked in the past 12 months: No - Social History Usual Living Arrangement: Alone ADL: Independent Occupation: retired History of Recent Travel: No Home Medications - Allergies Allergies/Adverse Reactions: Allergies Allergy/AdvReac Type Severity Reaction Status Date / Time shellfish derived Allergy Verified 06/12/19 16:25 - Home Medications Home Medications: Ambulatory Orders Aspirin [Aspirin EC] 81 mg PO DAILY 08/17/17 Donepezil HCl [Aricept -] 5 mg PO DAILY 08/17/17 Buspirone HCl [Buspar -] 10 mg PO BID #60 tablet 09/11/17 metFORMIN HCL [Metformin HCl] 500 mg PO BID #0 tab 09/11/17 Clopidogrel Bisulfate [Plavix] 75 mg PO DAILY 05/27/19 Insulin Aspart [Novolog] 20 unit SQ BID 05/27/19 Insulin Degludec [Tresiba] 40 unit SQ DAILY 05/27/19 Quetiapine Fumarate [Seroquel -] 25 mg PO HS 05/27/19 Trazodone HCl 150 mg PO DAILY 05/27/19 Losartan Potassium 100 mg PO DAILY 05/28/19 Amlodipine Besylate [Norvasc -] 10 mg PO DAILY #30 tablet 05/30/19 Amox-Tr/K Cl [Augmentin - 875Mg Tablet] 1 tab PO BID #14 tablet 05/30/19 Metoprolol Tartrate [Lopressor -] 25 mg PO BID #60 tablet 05/30/19 Physical Exam Vital Signs: Vital Signs Temperature 98.4 F 06/13/19 09:00 Pulse Rate 78 06/13/19 09:00 Respiratory Rate 20 06/13/19 09:00 Blood Pressure 162/78 06/13/19 09:00 O2 Sat by Pulse Oximetry (%) 97 06/13/19 09:00 Extremities: Yes: Other (+warm swollen right foot with drainaing wound right big toe joint, +grade 3 probing to bone, +cellulituis, esr 108, crp 4.6, + resolved left foot 5th toe wound,) Labs: CBC, BMP 06/13/19 06:10 06/13/19 06:10 Assessment/Plan om right foot 1st mpj? grade 3 ulceration left foot wound healed non-compliant patient MRI ordered. Betadine dressing right big toe joint. Will follow. Discussed at length with daughter , son in law and niece who were present at time of examination.
--- NOTE | 2019-06-13 14:00 | CONS ---
DATE OF CONSULTATION: DATE OF DICTATION: 06/13/2019 REQUESTED BY: Hospitalist service. This is an 83-year-old woman who I met recently. She was hospitalized May 27 to May 30, when she was sent to the emergency room by the car dropper for possible osteomyelitis of her right foot at the site of her big toe. She had had an ulcer that had not healed at the site of the bunion on her right big toe at that time. She had had a bone scan as an outpatient May 03 that was negative for osteo. As well, she had had a prior MRI in April as well that was negative for osteo. The study was repeated again on May 28 and once again there was no evidence of osteomyelitis. She had no evidence of any subcutaneous abscess, with some minimal swelling of the site. She was seen by Vascular and by Podiatry during that admission. She was discharged on oral Augmentin, which she did not take. Of note, she gave a history, during that admission, of wearing shoes that would rub against this area. She now returns with 3 days of yellow drainage from the foot. She has no fevers or chills. Of note, she did not take the Augmentin as prescribed. Her past medical history is notable for diabetes, hypertension, and hyperlipidemia. She has a history of peripheral neuropathy, GERD, renal insufficiency, and anxiety. Surgical history is notable for cholecystectomy, section, and she has had cataract surgery. SOCIAL HISTORY: There is no history of any cigarette or substance use. She lives alone and she is retired. There has been no recent travel. She is allergic to SHELLFISH. Her medications as an outpatient include metformin, trazodone, Seroquel, Lopressor, losartan, insulin, Aricept, Plavix, BuSpar, aspirin, and Norvasc. FAMILY HISTORY: Not obtainable. REVIEW OF SYSTEMS: Negative for fevers or chills. She reports 3 days of some yellow drainage. PHYSICAL EXAMINATION: General: She is awake and alert, in no acute distress. Vital Signs: Temperature is 98.4. Pulse 78. Blood pressure 162/78. Respiratory rate 20. She is saturating 97%. HEENT: She is normocephalic. Eyes are anicteric. Neck: Supple. Lungs: Clear to auscultation. Heart: Regular rate and rhythm. Abdomen: Soft, nontender. Extremities: On the right medial malleolus, she has a bunion. There is minimal fluctuance. There is no erythema of the foot or the bunion. On further palpation, a small amount of serous fluid can be obtained from the bunion site. Her labs are notable for a white count that was 10.5 on admission, repeat is 7.3, hemoglobin 9.7, platelets 289. Sedimentation rate is 108. BUN 17 and creatinine 1, and a glucose is 176 with normal LFTs. Her CRP is 4.6. Blood cultures are pending. Prior urine grew group B streptococcus. An x-ray of the foot showed some loss of bone density and a bunion with some swelling. In summary, this is an 83-year-old woman with diabetes, admitted with drainage from the bunion site, serosanguineous in nature. She has had multiple imaging studies, both MRI and bone scan in April, followed by an MRI again in May, all of which have been negative for osteo. She apparently does not wear appropriate footwear and she did not take the Augmentin as prescribed, now with 3 days of drainage. There is no evidence of any erythema. Drainage of serosanguineous from the area and I sent it for a wound culture. I would treat her with Unasyn for now. I do not suspect she has osteo, given these extensive recent workups and the fact that foot looks quite benign. I suspect, again, this is more mechanical due to lack of proper footwear and management of the bunion. Would look for other causes of elevated inflammatory markers. She now has new anemia as well. The case was discussed at length with the hospitalist. RADHA VU M.D. [id number]
[2019-06-13] MEDS ORDERED: AMPICILLIN NA/SULBACTAM NA 1.5 GM VIAL ONE ×2 (14:10→21:00)
[2019-06-13] MEDS ORDERED: SODIUM CHLORIDE 100 ML IVPB ONE ×2 (14:10→21:00)
[2019-06-13] MEDS: AMPICILLIN NA/SULBACTAM NA 1.5 GM in SODIUM CHLORIDE 100 ML IVPB SCH ×2 (14:35→21:00)
[2019-06-13] MEDS: INSULIN (LEVEMIR) 100 UNITS/ML UNITS SQ SCH (18:33)
[2019-06-13] MEDS ORDERED: VANCOMYCIN 1 GM in D5W (PRE-DOCKED) 1,000 MG/250 ML IVPB ONE (19:00)
[2019-06-13] MEDS ORDERED: INSULIN (LEVEMIR) 100 UNITS/ML UNITS SQ SCH (22:00)
[2019-06-13] MEDS: DONEPEZIL HCL 5 MG TABLET (FP) PO SCH (22:27)
[2019-06-13] MEDS: traZODone HCL 100 MG, traZODone HCL 50 MG PO SCH (22:27)
[2019-06-13] MEDS: QUEtiapine FUMARATE 25 MG TABLET (FP) PO SCH (22:28)
[2019-06-14] MEDS ORDERED: SODIUM CHLORIDE 100 ML IVPB ONE ×3 (01:12→20:45)
[2019-06-14] MEDS ORDERED: AMPICILLIN NA/SULBACTAM NA 1.5 GM VIAL ONE ×4 (01:12→20:45)
[2019-06-14] MEDS: AMPICILLIN NA/SULBACTAM NA 1.5 GM in SODIUM CHLORIDE 100 ML IVPB SCH ×4 (02:12→21:53)
[2019-06-14 09:12] LABS: BASO % 0.9 % (0-2.0); EOS % 1.3 % (0-4.5); HEMATOCRIT 27.4 % (32.4-45.2); HEMOGLOBIN 9.2 GM/dL (10.7-15.3); LYMPH % 26.6 % (8-40); MCH 27.6 pg (25.7-33.7); MCHC 33.7 g/dl (32.0-36.0); MEAN CELL VOLUME 81.8 fl (80-96); MEAN PLT VOLUME 7.8 fl (7.5-11.1); MONO % 6.7 % (3.8-10.2); NEUT % 64.5 % (42.8-82.8); PLATELET COUNT 302 K/MM3 (134-434); RBC 3.34 M/mm3 (3.60-5.2); RDW 15.4 % (11.6-15.6); WHITE BLOOD COUNT 7.6 K/mm3 (4.0-10.0)
[2019-06-14 09:50] LABS: ALBUMIN 2.9 g/dl (3.4-5.0); BILIRUBIN,DIRECT 0.1 mg/dL (0.0-0.2); BILIRUBIN,TOTAL 0.3 mg/dL (0.2-1); BLOOD UREA NITROGEN 21.3 mg/dL (7-18); MAGNESIUM 2.2 mg/dL (1.8-2.4); PHOSPHOROUS 3.5 mg/dL (2.5-4.9); POTASSIUM 4.1 mmol/L (3.5-5.1); TOT PROT 7.5 g/dl (6.4-8.2)
[2019-06-14] MEDS: METOPROLOL TARTRATE 25 MG TABLET (FP) PO SCH ×2 (10:18→21:59)
[2019-06-14] MEDS: amLODIPine BESYLATE 10 MG TABLET (FP) PO SCH (10:18)
[2019-06-14] MEDS: CLOPIDOGREL BISULFATE 75 MG TABLET (FP) PO SCH (10:18)
[2019-06-14] MEDS: ASPIRIN COATED 81 MG TABLET.EC PO SCH (10:18)
[2019-06-14] MEDS: LOSARTAN POTASSIUM 50 MG TABLET (FP) PO SCH (10:18)
[2019-06-14] MEDS: busPIRone HCL 10 MG TABLET (FP) PO SCH ×2 (10:19→21:56)
[2019-06-14] MEDS: HEPARIN NA (PORCINE) 5,000 UNITS/ML 1ML VIAL SQ SCH ×3 (11:34→21:58)
[2019-06-14] MEDS: INSULIN (LEVEMIR) 100 UNITS/ML UNITS SQ SCH ×2 (11:34→20:10)
[2019-06-14] MEDS: INSULIN SLIDING SCALE (NOVOLOG) 1 VIAL SQ SCH ×4 (11:35→21:55)
--- NOTE | 2019-06-14 13:28 | PN ---
Progress Note (short form) - Note Progress Note: alert no complaints daughters at bedside reports they were not aware mom was discharged on antibiotics so they didn't pick it up from the pharmacy reports she is noncompliant with footwear- thinks the recommended footwear with broad toe is ugly and wears instead her old shoes they think she is having mechanical trauma to the area of her bunion Vital Signs Period Temp Pulse Resp BP Sys/Persaud Pulse Ox Last 24 Hr 98.4 F-99 F 72-83 18-20 145-180/73-90 97 foot with fluctuance at bunion site- no drainage, no erythema CBC, BMP 06/14/19 07:15 06/14/19 07:15 Microbiology 06/13/19 11:22 Wound Wound Culture - Preliminary 06/12/19 18:05 Blood - Peripheral Venous Blood Culture - Preliminary NO GROWTH OBTAINED AFTER 24 HOURS, INCUBATION TO CONTINUE FOR 4 DAYS. 06/12/19 18:05 Blood - Peripheral Venous Blood Culture - Preliminary NO GROWTH OBTAINED AFTER 24 HOURS, INCUBATION TO CONTINUE FOR 4 DAYS. a/p f/u cultures of bunion, continue unasyn, podiatry f/u 3 recent imaging tests for osteomyelitis April and May all negative for osteomyelitis iron def anemia- w/u per hospitalist d/w hospitalist
--- NOTE | 2019-06-14 13:33 | PN ---
Progress Note, Physician Chief Complaint: Ms Pierce complains of pain in her foot but s/p probing. No cp, sob, n/v. - Current Medication List Current Medications: Active Medications Acetaminophen (Tylenol -) 650 mg PO Q4H PRN PRN Reason: PAIN Last Admin: 06/12/19 23:58 Dose: 650 mg Amlodipine Besylate (Norvasc -) 10 mg PO DAILY [facility] Last Admin: 06/14/19 10:18 Dose: 10 mg Aspirin (Ecotrin -) 81 mg PO DAILY [facility] Last Admin: 06/14/19 10:18 Dose: 81 mg Buspirone HCl (Buspar -) 10 mg PO BID [facility] Last Admin: 06/14/19 10:19 Dose: 10 mg Clopidogrel Bisulfate (Plavix -) 75 mg PO DAILY [facility] Last Admin: 06/14/19 10:18 Dose: 75 mg Donepezil HCl (Aricept -) 5 mg PO HS [facility] Last Admin: 06/13/19 22:27 Dose: 5 mg Heparin Sodium (Porcine) (Heparin -) 5,000 unit SQ TID [facility] Last Admin: 06/14/19 11:34 Dose: Not Given Ampicillin Sodium/Sulbactam (Sodium 1.5 gm/ Sodium Chloride) 100 mls @ 200 mls/ hr IVPB Q6H-IV [facility] Last Admin: 06/14/19 10:16 Dose: 200 mls/hr Iron Sucrose 100 mg/ Sodium (Chloride) 100 mls @ 200 mls/hr IVPB ONCE ONE Stop: 06/14/19 13:58 Insulin Aspart (Novolog Vial Sliding Scale -) 1 vial SQ ACHS [facility]; Protocol Last Admin: 06/14/19 12:26 Dose: 4 units Insulin Detemir (Levemir Vial) 10 units SQ 0700,1900 [facility] Last Admin: 06/14/19 11:34 Dose: Not Given Losartan Potassium (Cozaar -) 100 mg PO DAILY [facility] Last Admin: 06/14/19 10:18 Dose: 100 mg Metoprolol Tartrate (Lopressor -) 25 mg PO BID [facility] Last Admin: 06/14/19 10:18 Dose: 25 mg Quetiapine Fumarate (Seroquel -) 25 mg PO HS [facility] Last Admin: 06/13/19 22:28 Dose: 25 mg Trazodone HCl 100 mg/ (Trazodone HCl 50 mg) 150 mg PO HS [facility] Last Admin: 06/13/19 22:27 Dose: 150 mg - Objective Vital Signs: Vital Signs Temperature 37.1 C 06/14/19 10:00 Pulse Rate 79 06/14/19 10:00 Respiratory Rate 18 06/14/19 10:00 Blood Pressure 145/73 06/14/19 10:00 O2 Sat by Pulse Oximetry (%) 97 06/13/19 21:00 Constitutional: Yes: Well Nourished, No Distress, Calm Cardiovascular: Yes: Regular Rate and Rhythm. No: Gallop, Murmur, Rub Respiratory: Yes: Regular, CTA Bilaterally. No: Rales, Rhonchi, Wheezes Gastrointestinal: Yes: Normal Bowel Sounds, Soft. No: Distention, Tenderness Extremities: Yes: Other (bunion noted) Edema: No Labs: CBC, BMP 06/14/19 07:15 06/14/19 07:15 Problem List - Problems (1) Anemia Code(s): D64.9 - ANEMIA, UNSPECIFIED (2) Non-healing ulcer of foot Code(s): L97.509 - NON-PRESSURE CHRONIC ULCER OTH PRT UNSP FOOT W UNSP SEVERITY Qualifiers: Laterality: left (3) Dementia Code(s): F03.90 - UNSPECIFIED DEMENTIA WITHOUT BEHAVIORAL DISTURBANCE (4) Diabetes mellitus Code(s): E11.9 - TYPE 2 DIABETES MELLITUS WITHOUT COMPLICATIONS (5) HTN (hypertension) Code(s): I10 - ESSENTIAL (PRIMARY) HYPERTENSION Qualifiers: Hypertension type: unspecified Qualified Code(s): I10 - Essential (primary ) hypertension (6) Thyroid disease Code(s): E07.9 - DISORDER OF THYROID, UNSPECIFIED Assessment/Plan (1) Anemia Assessment/Plan: -studies coming back positive for iron deficiency anemia -awaiting stool guaiac -will give IV iron Code(s): D64.9 - ANEMIA, UNSPECIFIED (2) Non-healing ulcer of foot Assessment/Plan: -case d/w dr Corey -follow up MRI results -continue unasyn -podiatry following Code(s): L97.509 - NON-PRESSURE CHRONIC ULCER OTH PRT UNSP FOOT W UNSP SEVERITY Qualifiers: Laterality: left (3) Dementia Assessment/Plan: -stable Code(s): F03.90 - UNSPECIFIED DEMENTIA WITHOUT BEHAVIORAL DISTURBANCE (4) Diabetes mellitus Assessment/Plan: -last time was well controlled on levemir 10 units bid and diabetic diet -will continue this again -FSBS and SSI Code(s): E11.9 - TYPE 2 DIABETES MELLITUS WITHOUT COMPLICATIONS (5) HTN (hypertension) Assessment/Plan: -continue amlodipine, cozaar, and metoprolol -monitor Code(s): I10 - ESSENTIAL (PRIMARY) HYPERTENSION Qualifiers: Hypertension type: unspecified Qualified Code(s): I10 - Essential (primary ) hypertension (6) Thyroid disease -TSH abnormal but FT4 is normal -follow up T3 labs -TSH most likely elevated secondary to inflammation Code(s): E07.9 - DISORDER OF THYROID, UNSPECIFIED
[2019-06-14] MEDS ORDERED: IRON SUCROSE INJECTION 100 MG in SODIUM CHLORIDE 95 ML IVPB ONE (14:00)
[2019-06-14] MEDS ORDERED: PT OWN MED DRAWER 7, Y5N ONE (14:39)
[2019-06-14] MEDS ORDERED: SODIUM CHLORIDE 200 ML IVPB ONE (14:40)
[2019-06-14 15:59] VITALS: BMI 31.6
[2019-06-14] MEDS: DONEPEZIL HCL 5 MG TABLET (FP) PO SCH (21:57)
[2019-06-14] MEDS: traZODone HCL 100 MG, traZODone HCL 50 MG PO SCH (21:58)
[2019-06-14] MEDS: QUEtiapine FUMARATE 25 MG TABLET (FP) PO SCH (21:59)
[2019-06-15] MEDS: AMPICILLIN NA/SULBACTAM NA 1.5 GM in SODIUM CHLORIDE 100 ML IVPB SCH ×4 (02:14→21:21)
[2019-06-15] MEDS: INSULIN (LEVEMIR) 100 UNITS/ML UNITS SQ SCH ×2 (06:20→19:01)
[2019-06-15] MEDS: HEPARIN NA (PORCINE) 5,000 UNITS/ML 1ML VIAL SQ SCH ×3 (06:21→21:22)
[2019-06-15] MEDS: INSULIN SLIDING SCALE (NOVOLOG) 1 VIAL SQ SCH ×4 (06:21→21:27)
[2019-06-15] MEDS ORDERED: INSULIN (NOVOLOG) ASPART 100 UNITS/ML 10ML VIAL ONE ×2 (06:30→21:27)
[2019-06-15 07:55] LABS: BASO % 0.6 % (0-2.0); HEMATOCRIT 27.9 % (32.4-45.2); HEMOGLOBIN 9.5 GM/dL (10.7-15.3); MCH 27.6 pg (25.7-33.7); MEAN CELL VOLUME 81.1 fl (80-96); MEAN PLT VOLUME 7.7 fl (7.5-11.1); MONO % 7.5 % (3.8-10.2); NEUT % 67.9 % (42.8-82.8); PLATELET COUNT 305 K/MM3 (134-434); RBC 3.44 M/mm3 (3.60-5.2); RDW 14.9 % (11.6-15.6); WHITE BLOOD COUNT 8.2 K/mm3 (4.0-10.0)
[2019-06-15 08:34] LABS: BLOOD UREA NITROGEN 21.2 mg/dL (7-18); CALCIUM 8.6 mg/dL (8.5-10.1); CREATININE 0.8 mg/dL (0.55-1.3); MAGNESIUM 2.3 mg/dL (1.8-2.4); PHOSPHOROUS 4.2 mg/dL (2.5-4.9); POTASSIUM 3.8 mmol/L (3.5-5.1)
[2019-06-15] MEDS ORDERED: SODIUM CHLORIDE 100 ML IVPB ONE ×3 (09:38→21:17)
[2019-06-15] MEDS ORDERED: PT OWN MED DRAWER 7, Y5N ONE ×2 (09:38→22:13)
[2019-06-15] MEDS ORDERED: AMPICILLIN NA/SULBACTAM NA 1.5 GM VIAL ONE ×3 (09:38→21:17)
[2019-06-15] MEDS: LOSARTAN POTASSIUM 50 MG TABLET (FP) PO SCH (09:46)
[2019-06-15] MEDS: METOPROLOL TARTRATE 25 MG TABLET (FP) PO SCH ×2 (09:46→21:22)
[2019-06-15] MEDS: CLOPIDOGREL BISULFATE 75 MG TABLET (FP) PO SCH (09:46)
[2019-06-15] MEDS: ASPIRIN COATED 81 MG TABLET.EC PO SCH (09:46)
[2019-06-15] MEDS: amLODIPine BESYLATE 10 MG TABLET (FP) PO SCH (09:47)
[2019-06-15] MEDS: busPIRone HCL 10 MG TABLET (FP) PO SCH ×2 (09:47→21:23)
--- NOTE | 2019-06-15 12:48 | PN ---
Progress Note, Physician Chief Complaint: Ms Pierce is without complaint. No cp, sob, n/v. - Current Medication List Current Medications: Active Medications Acetaminophen (Tylenol -) 650 mg PO Q4H PRN PRN Reason: PAIN Last Admin: 06/12/19 23:58 Dose: 650 mg Amlodipine Besylate (Norvasc -) 10 mg PO DAILY [facility] Last Admin: 06/15/19 09:47 Dose: 10 mg Aspirin (Ecotrin -) 81 mg PO DAILY [facility] Last Admin: 06/15/19 09:46 Dose: 81 mg Buspirone HCl (Buspar -) 10 mg PO BID [facility] Last Admin: 06/15/19 09:47 Dose: 10 mg Clopidogrel Bisulfate (Plavix -) 75 mg PO DAILY [facility] Last Admin: 06/15/19 09:46 Dose: 75 mg Donepezil HCl (Aricept -) 5 mg PO HS [facility] Last Admin: 06/14/19 21:57 Dose: 5 mg Heparin Sodium (Porcine) (Heparin -) 5,000 unit SQ TID [facility] Last Admin: 06/15/19 06:21 Dose: 5,000 unit Ampicillin Sodium/Sulbactam (Sodium 1.5 gm/ Sodium Chloride) 100 mls @ 200 mls/ hr IVPB Q6H-IV [facility] Last Admin: 06/15/19 09:46 Dose: 200 mls/hr Insulin Aspart (Novolog Vial Sliding Scale -) 1 vial SQ ACHS [facility]; Protocol Last Admin: 06/15/19 11:46 Dose: 2 units Insulin Detemir (Levemir Vial) 10 units SQ 0700,1900 [facility] Last Admin: 06/15/19 06:20 Dose: 10 units Losartan Potassium (Cozaar -) 100 mg PO DAILY [facility] Last Admin: 06/15/19 09:46 Dose: 100 mg Metoprolol Tartrate (Lopressor -) 25 mg PO BID [facility] Last Admin: 06/15/19 09:46 Dose: 25 mg Quetiapine Fumarate (Seroquel -) 25 mg PO HS [facility] Last Admin: 06/14/19 21:59 Dose: 25 mg Trazodone HCl 100 mg/ (Trazodone HCl 50 mg) 150 mg PO HS [facility] Last Admin: 06/14/19 21:58 Dose: 150 mg - Objective Vital Signs: Vital Signs Temperature 36.9 C 06/15/19 05:00 Pulse Rate 92 H 06/15/19 05:00 Respiratory Rate 18 06/15/19 05:00 Blood Pressure 154/75 06/15/19 05:00 O2 Sat by Pulse Oximetry (%) 97 06/13/19 21:00 Constitutional: Yes: Well Nourished, No Distress, Calm Cardiovascular: Yes: Regular Rate and Rhythm. No: Gallop, Murmur, Rub Respiratory: Yes: Regular, CTA Bilaterally. No: Rales, Rhonchi, Wheezes Gastrointestinal: Yes: Normal Bowel Sounds, Soft. No: Distention, Tenderness Extremities: Yes: WNL Edema: No Labs: CBC, BMP 06/15/19 06:23 06/15/19 06:23 Problem List - Problems (1) Anemia Code(s): D64.9 - ANEMIA, UNSPECIFIED (2) Non-healing ulcer of foot Code(s): L97.509 - NON-PRESSURE CHRONIC ULCER OTH PRT UNSP FOOT W UNSP SEVERITY Qualifiers: Laterality: left (3) Dementia Code(s): F03.90 - UNSPECIFIED DEMENTIA WITHOUT BEHAVIORAL DISTURBANCE (4) Diabetes mellitus Code(s): E11.9 - TYPE 2 DIABETES MELLITUS WITHOUT COMPLICATIONS (5) HTN (hypertension) Code(s): I10 - ESSENTIAL (PRIMARY) HYPERTENSION Qualifiers: Hypertension type: unspecified Qualified Code(s): I10 - Essential (primary ) hypertension (6) Thyroid disease Code(s): E07.9 - DISORDER OF THYROID, UNSPECIFIED Assessment/Plan (1) Anemia Assessment/Plan: -studies coming back positive for iron deficiency anemia -awaiting stool guaiac -ws/p IV iron Code(s): D64.9 - ANEMIA, UNSPECIFIED (2) Non-healing ulcer of foot Assessment/Plan: -case d/w dr Corey -follow up MRI results -continue unasyn -podiatry following Code(s): L97.509 - NON-PRESSURE CHRONIC ULCER OTH PRT UNSP FOOT W UNSP SEVERITY Qualifiers: Laterality: left (3) Dementia Assessment/Plan: -stable Code(s): F03.90 - UNSPECIFIED DEMENTIA WITHOUT BEHAVIORAL DISTURBANCE (4) Diabetes mellitus Assessment/Plan: -last time was well controlled on levemir 10 units bid and diabetic diet -will continue this again -FSBS and SSI Code(s): E11.9 - TYPE 2 DIABETES MELLITUS WITHOUT COMPLICATIONS (5) HTN (hypertension) Assessment/Plan: -continue amlodipine, cozaar, and metoprolol -monitor Code(s): I10 - ESSENTIAL (PRIMARY) HYPERTENSION Qualifiers: Hypertension type: unspecified Qualified Code(s): I10 - Essential (primary ) hypertension (6) Thyroid disease -TSH abnormal but FT4 is normal -T3 labs also normal -does not need synthroid Code(s): E07.9 - DISORDER OF THYROID, UNSPECIFIED
[2019-06-15] MEDS: QUEtiapine FUMARATE 25 MG TABLET (FP) PO SCH (21:22)
[2019-06-15] MEDS: DONEPEZIL HCL 5 MG TABLET (FP) PO SCH (21:22)
[2019-06-15] MEDS: traZODone HCL 100 MG, traZODone HCL 50 MG PO SCH (21:25)
[2019-06-16] MEDS ORDERED: AMPICILLIN NA/SULBACTAM NA 1.5 GM VIAL ONE ×4 (02:24→22:26)
[2019-06-16] MEDS ORDERED: SODIUM CHLORIDE 100 ML IVPB ONE ×4 (02:24→22:26)
[2019-06-16] MEDS: AMPICILLIN NA/SULBACTAM NA 1.5 GM in SODIUM CHLORIDE 100 ML IVPB SCH ×4 (02:55→22:31)
[2019-06-16] MEDS ORDERED: PT OWN MED DRAWER 7, Y5N ONE (06:14)
[2019-06-16] MEDS: INSULIN (LEVEMIR) 100 UNITS/ML UNITS SQ SCH ×2 (06:56→19:33)
[2019-06-16] MEDS: HEPARIN NA (PORCINE) 5,000 UNITS/ML 1ML VIAL SQ SCH ×3 (06:56→22:35)
[2019-06-16] MEDS: INSULIN SLIDING SCALE (NOVOLOG) 1 VIAL SQ SCH ×4 (06:56→22:35)
[2019-06-16 07:46] LABS: BASO % 0.5 % (0-2.0); EOS % 1.5 % (0-4.5); HEMATOCRIT 26.3 % (32.4-45.2); HEMOGLOBIN 8.9 GM/dL (10.7-15.3); LYMPH % 24.1 % (8-40); MCH 27.5 pg (25.7-33.7); MCHC 33.9 g/dl (32.0-36.0); MEAN CELL VOLUME 81.1 fl (80-96); MEAN PLT VOLUME 7.7 fl (7.5-11.1); MONO % 6.8 % (3.8-10.2); NEUT % 67.1 % (42.8-82.8); PLATELET COUNT 307 K/MM3 (134-434); RBC 3.25 M/mm3 (3.60-5.2); RDW 15.1 % (11.6-15.6); WHITE BLOOD COUNT 8.4 K/mm3 (4.0-10.0)
[2019-06-16 08:50] LABS: BLOOD UREA NITROGEN 23.6 mg/dL (7-18); CALCIUM 8.2 mg/dL (8.5-10.1); MAGNESIUM 2.3 mg/dL (1.8-2.4); PHOSPHOROUS 4.3 mg/dL (2.5-4.9); POTASSIUM 3.9 mmol/L (3.5-5.1)
[2019-06-16] MEDS: busPIRone HCL 10 MG TABLET (FP) PO SCH ×2 (10:43→22:30)
[2019-06-16] MEDS: ASPIRIN COATED 81 MG TABLET.EC PO SCH (10:43)
[2019-06-16] MEDS: CLOPIDOGREL BISULFATE 75 MG TABLET (FP) PO SCH (10:43)
[2019-06-16] MEDS: LOSARTAN POTASSIUM 50 MG TABLET (FP) PO SCH (10:43)
[2019-06-16] MEDS: amLODIPine BESYLATE 10 MG TABLET (FP) PO SCH (10:43)
[2019-06-16] MEDS: METOPROLOL TARTRATE 25 MG TABLET (FP) PO SCH ×2 (10:44→22:30)
--- NOTE | 2019-06-16 12:50 | PN ---
Progress Note, Physician Chief Complaint: Poditry History of Present Illness: Patient is known to me but left hospital and never followed up for wound right foot. - Current Medication List Current Medications: Active Medications Acetaminophen (Tylenol -) 650 mg PO Q4H PRN PRN Reason: PAIN Last Admin: 06/12/19 23:58 Dose: 650 mg Amlodipine Besylate (Norvasc -) 10 mg PO DAILY [facility] Last Admin: 06/16/19 10:43 Dose: 10 mg Aspirin (Ecotrin -) 81 mg PO DAILY [facility] Last Admin: 06/16/19 10:43 Dose: 81 mg Buspirone HCl (Buspar -) 10 mg PO BID [facility] Last Admin: 06/16/19 10:43 Dose: 10 mg Clopidogrel Bisulfate (Plavix -) 75 mg PO DAILY [facility] Last Admin: 06/16/19 10:43 Dose: 75 mg Donepezil HCl (Aricept -) 5 mg PO HS [facility] Last Admin: 06/15/19 21:22 Dose: 5 mg Heparin Sodium (Porcine) (Heparin -) 5,000 unit SQ TID [facility] Last Admin: 06/16/19 06:56 Dose: 5,000 unit Ampicillin Sodium/Sulbactam (Sodium 1.5 gm/ Sodium Chloride) 100 mls @ 200 mls/ hr IVPB Q6H-IV [facility] Last Admin: 06/16/19 10:43 Dose: 200 mls/hr Insulin Aspart (Novolog Vial Sliding Scale -) 1 vial SQ ACHS [facility]; Protocol Last Admin: 06/16/19 11:58 Dose: 2 units Insulin Detemir (Levemir Vial) 10 units SQ 0700,1900 [facility] Last Admin: 06/16/19 06:56 Dose: 10 units Losartan Potassium (Cozaar -) 100 mg PO DAILY [facility] Last Admin: 06/16/19 10:43 Dose: 100 mg Metoprolol Tartrate (Lopressor -) 25 mg PO BID [facility] Last Admin: 06/16/19 10:44 Dose: 25 mg Quetiapine Fumarate (Seroquel -) 25 mg PO HS [facility] Last Admin: 06/15/19 21:22 Dose: 25 mg Trazodone HCl 100 mg/ (Trazodone HCl 50 mg) 150 mg PO HS [facility] Last Admin: 06/15/19 21:25 Dose: 150 mg - Objective Vital Signs: Vital Signs Temperature 98.6 F 06/16/19 10:15 Pulse Rate 82 06/16/19 10:15 Respiratory Rate 18 06/16/19 10:15 Blood Pressure 152/79 06/16/19 10:15 O2 Sat by Pulse Oximetry (%) 93 L 06/15/19 21:00 Extremities: Yes: Other (-om on mri, +cellulitis, +edema, +mild drainage,) Labs: CBC, BMP 06/16/19 06:37 06/16/19 06:37 Assessment/Plan om right foot 1st mpj? grade 3 ulceration left foot wound healed non-compliant patient Vascular consult. Betadine dressing right big toe joint. Will follow. Read and appreciated MRI.
[2019-06-16] MEDS ORDERED: INSULIN (LEVEMIR) 100 UNITS/ML UNITS SQ ONE (17:04)
--- NOTE | 2019-06-16 19:08 | PN ---
Physical Exam: SUBJECTIVE: Patient seen and examined, right foot pain better, no fevers/ chills. OBJECTIVE: Vital Signs Period Temp Pulse Resp BP Sys/Persaud Pulse Ox Last 24 Hr 98 F-100.4 F 73-98 18-20 113-154/66-79 93-95 Intake & Output 06/13/19 06/14/19 06/15/19 06/16/19 23:59 23:59 23:59 23:59 Intake Total 503 660 5180 650 Balance 180 284 0668 650 Weight 179 lb GENERAL: sitting in chair in no acute distress Chest: CTAb, no rales or wheezing Abdomen:Soft, NT, ND, pos bowel sounds Extremities: Right foot swelling with erythema on dorsum, medial aspect right first metatarsophalangeal area, 1 cm swellingi/erythema, induration CVS:S1S2 regular Laboratory Results - last 24 hr 06/15/19 06/15/19 06/16/19 17:44 21:09 06:03 WBC RBC Hgb Hct MCV MCH MCHC RDW Plt Count MPV Absolute Neuts (auto) Neutrophils % Lymphocytes % Monocytes % Eosinophils % Basophils % Nucleated RBC % Sodium Potassium Chloride Carbon Dioxide Anion Gap BUN Creatinine Est GFR (CKD-EPI)AfAm Est GFR (CKD-EPI)NonAf POC Glucometer 194 236 117 Random Glucose Calcium Phosphorus Magnesium 06/16/19 06/16/19 06/16/19 06:37 06:37 11:53 WBC 8.4 RBC 3.25 L Hgb 8.9 L Hct 26.3 L MCV 81.1 MCH 27.5 MCHC 33.9 RDW 15.1 Plt Count 307 MPV 7.7 Absolute Neuts (auto) 5.6 Neutrophils % 67.1 Lymphocytes % 24.1 Monocytes % 6.8 Eosinophils % 1.5 Basophils % 0.5 Nucleated RBC % 0 Sodium 137 Potassium 3.9 Chloride 104 Carbon Dioxide 23 Anion Gap 10 BUN 23.6 H Creatinine 1.0 Est GFR (CKD-EPI)AfAm 60.76 Est GFR (CKD-EPI)NonAf 52.42 POC Glucometer 174 Random Glucose 106 Calcium 8.2 L Phosphorus 4.3 Magnesium 2.3 06/16/19 17:02 WBC RBC Hgb Hct MCV MCH MCHC RDW Plt Count MPV Absolute Neuts (auto) Neutrophils % Lymphocytes % Monocytes % Eosinophils % Basophils % Nucleated RBC % Sodium Potassium Chloride Carbon Dioxide Anion Gap BUN Creatinine Est GFR (CKD-EPI)AfAm Est GFR (CKD-EPI)NonAf POC Glucometer 295 Random Glucose Calcium Phosphorus Magnesium Active Medications Generic Name Dose Route Start Last Admin Trade Name Freq PRN Reason Stop Dose Admin Acetaminophen 650 mg 06/12/19 20:36 06/12/19 23:58 Tylenol - PO 650 mg Q4H PRN Administration PAIN Amlodipine Besylate 10 mg 06/13/19 10:00 06/16/19 10:43 Norvasc - PO 10 mg DAILY [facility] Administration Aspirin 81 mg 06/13/19 10:00 06/16/19 10:43 Ecotrin - PO 81 mg DAILY [facility] Administration Buspirone HCl 10 mg 06/12/19 22:00 06/16/19 10:43 Buspar - PO 10 mg BID [facility] Administration Clopidogrel Bisulfate 75 mg 06/13/19 10:00 06/16/19 10:43 Plavix - PO 75 mg DAILY [facility] Administration Donepezil HCl 5 mg 06/13/19 22:00 06/15/19 21:22 Aricept - PO 5 mg HS [facility] Administration Heparin Sodium (Porcine) 5,000 unit 06/12/19 22:00 06/16/19 14:10 Heparin - SQ 5,000 unit TID [facility] Administration Ampicillin Sodium/Sulbactam 100 mls @ 200 mls/hr 06/13/19 12:42 06/16/19 16: 18 Sodium 1.5 gm/ Sodium Chloride IVPB 200 mls/hr Q6H-IV [facility] Administration Insulin Aspart 1 vial 06/13/19 06:41 06/16/19 17:03 Novolog Vial Sliding Scale - SQ 6 units ACHS [facility] Administration Protocol Insulin Detemir 10 units 06/13/19 19:00 06/16/19 06:56 Levemir Vial SQ 10 units 0700,1900 [facility] Administration Losartan Potassium 100 mg 06/13/19 10:00 06/16/19 10:43 Cozaar - PO 100 mg DAILY [facility] Administration Metoprolol Tartrate 25 mg 06/12/19 22:00 06/16/19 10:44 Lopressor - PO 25 mg BID [facility] Administration Quetiapine Fumarate 25 mg 06/12/19 22:00 06/15/19 21:22 Seroquel - PO 25 mg HS [facility] Administration Trazodone HCl 100 mg/ 150 mg 06/13/19 22:00 06/15/19 21:25 Trazodone HCl 50 mg PO 150 mg HS [facility] Administration Home Medications Medication Instructions Recorded Aspirin [Aspirin EC] 81 mg PO DAILY 08/17/17 Donepezil HCl [Aricept -] 5 mg PO DAILY 08/17/17 Buspirone HCl [Buspar -] 10 mg PO BID #60 tablet 09/11/17 metFORMIN HCL [Metformin HCl] 500 mg PO BID #0 tab 09/11/17 Clopidogrel Bisulfate [Plavix] 75 mg PO DAILY 05/27/19 Insulin Aspart [Novolog] 20 unit SQ BID 05/27/19 Insulin Degludec [Tresiba] 40 unit SQ DAILY 05/27/19 Quetiapine Fumarate [Seroquel -] 25 mg PO HS 05/27/19 Trazodone HCl 150 mg PO DAILY 05/27/19 Losartan Potassium 100 mg PO DAILY 05/28/19 Amlodipine Besylate [Norvasc -] 10 mg PO DAILY #30 tablet 05/30/19 Amox-Tr/K Cl [Augmentin - 875Mg 1 tab PO BID #14 tablet 05/30/19 Tablet] Metoprolol Tartrate [Lopressor -] 25 mg PO BID #60 tablet 05/30/19 ASSESSMENT/PLAN: 83 year old female with PMH significant for DM, HTN, and HLD admitted with right foot cellulitis and left foot bunion with suspected secondary cellulitis. -Right foot cellulitis -Left foot bunion with suspected secondary celluitis -NIDDM -HTN -HLD Plan: ID/podiatry input noted MRI neg for osteo unasyn continue per ID. Cultures noted. Dispo pending clinical improvement and ID/podiatry input. Visit type - Emergency Visit Emergency Visit: Yes ED Registration Date: 06/12/19 Care time: The patient presented to the Emergency Department on the above date and was hospitalized for further evaluation of their emergent condition. - New Patient This patient is new to me today: Yes Date on this admission: 06/16/19 - Critical Care Critical Care patient: No - Discharge Referral Referred to [facility] Med [facility] No
[2019-06-16] MEDS: DONEPEZIL HCL 5 MG TABLET (FP) PO SCH (22:30)
[2019-06-16] MEDS: QUEtiapine FUMARATE 25 MG TABLET (FP) PO SCH (22:30)
[2019-06-16] MEDS: traZODone HCL 100 MG, traZODone HCL 50 MG PO SCH (22:34)
[2019-06-17] MEDS ORDERED: AMPICILLIN NA/SULBACTAM NA 1.5 GM VIAL ONE ×4 (02:14→22:21)
[2019-06-17] MEDS ORDERED: SODIUM CHLORIDE 100 ML IVPB ONE ×4 (02:14→22:21)
[2019-06-17] MEDS: AMPICILLIN NA/SULBACTAM NA 1.5 GM in SODIUM CHLORIDE 100 ML IVPB SCH ×4 (03:34→22:35)
[2019-06-17] MEDS: INSULIN SLIDING SCALE (NOVOLOG) 1 VIAL SQ SCH ×4 (06:10→22:44)
[2019-06-17] MEDS: HEPARIN NA (PORCINE) 5,000 UNITS/ML 1ML VIAL SQ SCH ×3 (06:11→22:37)
[2019-06-17] MEDS: INSULIN (LEVEMIR) 100 UNITS/ML UNITS SQ SCH ×2 (06:11→18:24)
[2019-06-17] MEDS: busPIRone HCL 10 MG TABLET (FP) PO SCH ×2 (09:02→22:36)
[2019-06-17] MEDS: METOPROLOL TARTRATE 25 MG TABLET (FP) PO SCH ×2 (09:02→22:35)
[2019-06-17] MEDS: amLODIPine BESYLATE 10 MG TABLET (FP) PO SCH (09:03)
[2019-06-17] MEDS: CLOPIDOGREL BISULFATE 75 MG TABLET (FP) PO SCH (09:03)
[2019-06-17] MEDS: LOSARTAN POTASSIUM 50 MG TABLET (FP) PO SCH (09:03)
[2019-06-17] MEDS: ASPIRIN COATED 81 MG TABLET.EC PO SCH (09:03)
--- NOTE | 2019-06-17 10:14 | CONSULT ---
Consult Consult Specialty:: VASCULAR SURGERY Referred by:: Minda Estrada Reason for Consultation:: Left foot OM. No palpable pulse - History of Present Illness Chief Complaint: Left toe hurts - History Source History Provided By: Patient, Medical Record Limitations to Obtaining History: No Limitations - Past Medical History RESEARCH SUBJECT: Yes: Peripheral Neuropathy, Other (Cataract) Cardio/Vascular: Yes: HTN Gastrointestinal: Yes: GERD Renal/: Yes: Renal Inusuff ...: No Psych: Yes: Anxiety Endocrine: Yes: Diabetes Mellitus - Past Surgical History Past Surgical History: Yes: Cholecystectomy, - Alcohol/Substance Use Hx Alcohol Use: No History of Substance Use: reports: None - Smoking History Smoking history: Never smoked Have you smoked in the past 12 months: No - Social History Usual Living Arrangement: Alone ADL: Independent Occupation: retired History of Recent Travel: No Home Medications - Allergies Allergies/Adverse Reactions: Allergies Allergy/AdvReac Type Severity Reaction Status Date / Time shellfish derived Allergy Verified 06/12/19 16:25 - Home Medications Home Medications: Ambulatory Orders Aspirin [Aspirin EC] 81 mg PO DAILY 08/17/17 Donepezil HCl [Aricept -] 5 mg PO DAILY 08/17/17 Buspirone HCl [Buspar -] 10 mg PO BID #60 tablet 09/11/17 metFORMIN HCL [Metformin HCl] 500 mg PO BID #0 tab 09/11/17 Clopidogrel Bisulfate [Plavix] 75 mg PO DAILY 05/27/19 Insulin Aspart [Novolog] 20 unit SQ BID 05/27/19 Insulin Degludec [Tresiba] 40 unit SQ DAILY 05/27/19 Quetiapine Fumarate [Seroquel -] 25 mg PO HS 05/27/19 Trazodone HCl 150 mg PO DAILY 05/27/19 Losartan Potassium 100 mg PO DAILY 05/28/19 Amlodipine Besylate [Norvasc -] 10 mg PO DAILY #30 tablet 05/30/19 Amox-Tr/K Cl [Augmentin - 875Mg Tablet] 1 tab PO BID #14 tablet 05/30/19 Metoprolol Tartrate [Lopressor -] 25 mg PO BID #60 tablet 05/30/19 Review of Systems - Review of Systems Constitutional: reports: No Symptoms Eyes: reports: No Symptoms HENT: reports: No Symptoms Neck: reports: No Symptoms Cardiovascular: reports: No Symptoms Respiratory: reports: No Symptoms Gastrointestinal: reports: No Symptoms Genitourinary: reports: No Symptoms Psychiatric: reports: Anxiety Physical Exam Vital Signs: Vital Signs Temperature 98.2 F 06/17/19 08:58 Pulse Rate 86 06/17/19 08:58 Respiratory Rate 18 06/17/19 08:58 Blood Pressure 169/78 06/17/19 08:58 O2 Sat by Pulse Oximetry (%) 96 06/16/19 21:00 Constitutional: Yes: Well Nourished, No Distress, Calm Eyes: Yes: WNL, Conjunctiva Clear, EOM Intact HENT: Yes: WNL, Atraumatic, Normocephalic Neck: Yes: WNL, Supple, Trachea Midline Cardiovascular: Yes: WNL Respiratory: Yes: WNL Gastrointestinal: Yes: WNL Renal/: Yes: WNL Musculoskeletal: Yes: WNL Edema: Yes Edema: LLE: 2+, RLE: 2+ Wound/Incision: Yes: Dressing Dry and Intact Neurological: Yes: WNL ...Motor Strength: WNL Psychiatric: Yes: WNL, Alert, Oriented Labs: CBC, BMP 06/16/19 06:37 06/16/19 06:37 Imaging - Results Ultrasound: Report Reviewed ([facility] Study Arterial Study from 05/28/19) MRI: Report Reviewed Problem List - Problems (1) Foot osteomyelitis, left Code(s): M86.9 - OSTEOMYELITIS, UNSPECIFIED (2) Anemia Code(s): D64.9 - ANEMIA, UNSPECIFIED (3) Diabetic foot Code(s): E11.8 - TYPE 2 DIABETES MELLITUS WITH UNSPECIFIED COMPLICATIONS (4) Anxiety Code(s): F41.9 - ANXIETY DISORDER, UNSPECIFIED (5) HTN (hypertension) Code(s): I10 - ESSENTIAL (PRIMARY) HYPERTENSION Qualifiers: Hypertension type: unspecified Qualified Code(s): I10 - Essential (primary ) hypertension
--- NOTE | 2019-06-17 10:30 | CONSULT ---
<Gato Teixeira P - Last Filed: 06/17/19 10:27> - Consultation REQUESTING PROVIDER: Luis Velez - Vascular Surgery CONSULT REQUEST: We have been asked to surgically evaluate this patient for left foot wound PCP: Kenzie Kent MD 83 yo female know to Vascular Surgery Service as she was last seen/consulted by Dr. Rankin on 05/28/19. His note was reviewed as well as images. Patient doesn't have palpable pulses yet her feet are warm and doesn't display and signs/symptoms of rest pain. She does have dopplerable DP & PTs bilateral. Currently has 2+ pedal edema bilateral. Podiatry (Minda) is currently managing her left foot wound. Reviewed [facility] findings with Dr. Velez and agrees no acute intervention needed at this time. She can have an angio scheduled electively if patient goes home or if patient stays then Dr. Rankin can perform upon his return. Cont medical management. Last Vital Signs Temp Pulse Resp BP Pulse Ox 98.2 F 86 18 169/78 96 06/17/19 08:58 06/17/19 08:58 06/17/19 08:58 06/17/19 08:58 06/16/19 21:00 CBC, BMP 06/16/19 06:37 06/16/19 06:37 Problem List - Problems (1) Foot osteomyelitis, left Code(s): M86.9 - OSTEOMYELITIS, UNSPECIFIED (2) Anemia Code(s): D64.9 - ANEMIA, UNSPECIFIED (3) Diabetic foot Code(s): E11.8 - TYPE 2 DIABETES MELLITUS WITH UNSPECIFIED COMPLICATIONS (4) Anxiety Code(s): F41.9 - ANXIETY DISORDER, UNSPECIFIED (5) HTN (hypertension) Code(s): I10 - ESSENTIAL (PRIMARY) HYPERTENSION Qualifiers: Hypertension type: unspecified Qualified Code(s): I10 - Essential (primary ) hypertension <Luis Velez - Last Filed: 06/21/19 17:26> - Consultation REQUESTING PROVIDER: CONSULT REQUEST: We have been asked to surgically evaluate this patient for ( specify). PCP:Kenzie Kent MD HISTORY OF PRESENT ILLNESS: PMHx: PSHx: Home Medications Medication Instructions Recorded Aspirin [Aspirin EC] 81 mg PO DAILY 08/17/17 Donepezil HCl [Aricept -] 5 mg PO DAILY 08/17/17 Buspirone HCl [Buspar -] 10 mg PO BID #60 tablet 09/11/17 metFORMIN HCL [Metformin HCl] 500 mg PO BID #0 tab 09/11/17 Clopidogrel Bisulfate [Plavix] 75 mg PO DAILY 05/27/19 Insulin Aspart [Novolog] 20 unit SQ BID 05/27/19 Insulin Degludec [Tresiba] 40 unit SQ DAILY 05/27/19 Quetiapine Fumarate [Seroquel -] 25 mg PO HS 05/27/19 Trazodone HCl 150 mg PO DAILY 05/27/19 Losartan Potassium 100 mg PO DAILY 05/28/19 Amlodipine Besylate [Norvasc -] 10 mg PO DAILY #30 tablet 05/30/19 Metoprolol Tartrate [Lopressor -] 25 mg PO BID #60 tablet 05/30/19 Amoxicillin/Potassium Clav 1 each PO BID #14 tablet 06/20/19 [Augmentin 875-125 Tablet] Docusate Sodium [Colace -] 100 mg PO BID #60 capsule 06/20/19 Ferrous Gluconate [Fergon -] 324 mg PO DAILY #30 tablet 06/20/19 Walker [Ultra-Light Rollator] 1 each MC DAILY #1 each 06/20/19 Allergies Allergy/AdvReac Type Severity Reaction Status Date / Time shellfish derived Allergy Verified 06/12/19 16:25 REVIEW OF SYSTEMS: CONSTITUTIONAL: Absent: fever, chills, diaphoresis, generalized weakness, malaise, loss of appetite, weight change CARDIOVASCULAR: Absent: chest pain, syncope, palpitations, irregular heart rate, lightheadedness , peripheral edema RESPIRATORY: Absent: cough, shortness of breath, dyspnea with exertion, wheezing, stridor, hemoptysis GASTROINTESTINAL: Absent: abdominal pain, abdominal distension, nausea, vomiting, diarrhea, constipation, melena, hematochezia GENITOURINARY: Absent: dysuria, frequency, urgency, hesitancy, hematuria, flank pain, genital pain MUSCULOSKELETAL: Absent: myalgia, arthralgia, joint swelling, back pain, neck pain SKIN: Absent: rash, itching, pallor HEMATOLOGIC/IMMUNOLOGIC: Absent: easy bleeding, easy bruising, lymphadenopathy NEUROLOGIC: Absent: headache, focal weakness, paresthesias, dizziness, unsteady gait, seizure, mental status changes, bladder or bowel incontinence PSYCHIATRIC: Absent: anxiety, depression, suicidal or homicidal ideation, hallucinations. PHYSICAL EXAM: GENERAL: Awake, alert, and fully oriented, in no acute distress. HEAD: Normal with no signs of trauma. EYES: PERRL, sclera anicteric, conjunctiva clear. NECK: Normal ROM, supple without lymphadenopathy, JVD, or masses. LUNGS: Clear to auscultation bilat anteriorly. No wheezes, and no crackles. No accessory muscle use. HEART: Regular rate and rhythm. No murmurs ABDOMEN: Soft, nontender, not distended, normoactive bowel sounds, no guarding, no rebound, no masses. No organomegaly. MUSCULOSKELETAL: Normal ROM at all joints. No bony deformities or tenderness. No CVA tenderness. UPPER EXTREMITIES: 2+ pulses, warm, well-perfused. No cyanosis. Cap refill <2 seconds. No peripheral edema. LOWER EXTREMITIES: 2+ pulses, warm, well-perfused. No calf tenderness. No peripheral edema. NEUROLOGICAL: Normal speech, gait not observed. PSYCH: Cooperative. Good eye contact. Appropriate mood and affect. SKIN: Warm, dry, normal turgor, no rashes or lesions noted. Vital Signs Temperature 98.3 F 06/20/19 09:00 Pulse Rate 85 06/20/19 09:00 Respiratory Rate 20 06/20/19 09:00 Blood Pressure 149/70 06/20/19 09:00 O2 Sat by Pulse Oximetry (%) 95 06/19/19 09:00 Lab Results WBC 7.9 K/mm3 (4.0-10.0) 06/20/19 06:30 RBC 3.38 M/mm3 (3.60-5.2) L 06/20/19 06:30 Hgb 9.3 GM/dL (10.7-15.3) L 06/20/19 06:30 Hct 27.6 % (32.4-45.2) L 06/20/19 06:30 MCV 81.6 fl (80-96) 06/20/19 06:30 MCHC 33.7 g/dl (32.0-36.0) 06/20/19 06:30 RDW 15.6 % (11.6-15.6) 06/20/19 06:30 Plt Count 356 K/MM3 (134-434) 06/20/19 06:30 Sodium 137 mmol/L (136-145) 06/16/19 06:37 Potassium 3.9 mmol/L (3.5-5.1) 06/16/19 06:37 Chloride 104 mmol/L (98-107) 06/16/19 06:37 Carbon Dioxide 23 mmol/L (21-32) 06/16/19 06:37 Anion Gap 10 MMOL/L (8-16) 06/16/19 06:37 BUN 23.6 mg/dL (7-18) H 06/16/19 06:37 Creatinine 1.0 mg/dL (0.55-1.3) 06/16/19 06:37 Random Glucose 106 mg/dL (74-106) 06/16/19 06:37 Calcium 8.2 mg/dL (8.5-10.1) L 06/16/19 06:37 The history and physical exam were discussed. I was not available to see patient. She will follow up with her Vascular surgeon as outpatient.
--- NOTE | 2019-06-17 14:59 | PN ---
Progress Note (short form) - Note Progress Note: alert no complaints Vital Signs Period Temp Pulse Resp BP Sys/Persaud Pulse Ox Last 24 Hr 98.0 F-100.4 F 75-86 18-20 132-169/66-85 96 cor-rrr lungs clear abd protuberant ext +swelling of right foot and lower leg with edema- minimal erythema, +bunion , no drainage, minimal warmth CBC, BMP 06/16/19 06:37 06/16/19 06:37 Microbiology 06/12/19 18:05 Blood - Peripheral Venous Blood Culture - Preliminary NO GROWTH OBTAINED AFTER 96 HOURS, INCUBATION TO CONTINUE FOR 1 DAYS. 06/12/19 18:05 Blood - Peripheral Venous Blood Culture - Preliminary NO GROWTH OBTAINED AFTER 96 HOURS, INCUBATION TO CONTINUE FOR 1 DAYS. 06/13/19 11:22 Wound Gram Stain - Final 06/13/19 11:22 Wound Wound Culture - Final Diphtheroid/Corynebacterium MRI no osteo Current Medications Acetaminophen (Tylenol -) 650 mg PO Q4H PRN PRN Reason: PAIN Last Admin: 06/12/19 23:58 Dose: 650 mg Amlodipine Besylate (Norvasc -) 10 mg PO DAILY [facility] Last Admin: 06/17/19 09:03 Dose: 10 mg Aspirin (Ecotrin -) 81 mg PO DAILY [facility] Last Admin: 06/17/19 09:03 Dose: 81 mg Buspirone HCl (Buspar -) 10 mg PO BID [facility] Last Admin: 06/17/19 09:02 Dose: 10 mg Clopidogrel Bisulfate (Plavix -) 75 mg PO DAILY [facility] Last Admin: 06/17/19 09:03 Dose: 75 mg Donepezil HCl (Aricept -) 5 mg PO HS [facility] Last Admin: 06/16/19 22:30 Dose: 5 mg Heparin Sodium (Porcine) (Heparin -) 5,000 unit SQ TID [facility] Last Admin: 06/17/19 06:11 Dose: 5,000 unit Ampicillin Sodium/Sulbactam (Sodium 1.5 gm/ Sodium Chloride) 100 mls @ 200 mls/ hr IVPB Q6H-IV [facility] Last Admin: 06/17/19 09:02 Dose: 200 mls/hr Insulin Aspart (Novolog Vial Sliding Scale -) 1 vial SQ ACHS [facility]; Protocol Last Admin: 06/17/19 12:36 Dose: 4 units Insulin Detemir (Levemir Vial) 10 units SQ 0700,1900 [facility] Last Admin: 06/17/19 06:11 Dose: 10 units Losartan Potassium (Cozaar -) 100 mg PO DAILY [facility] Last Admin: 06/17/19 09:03 Dose: 100 mg Metoprolol Tartrate (Lopressor -) 25 mg PO BID [facility] Last Admin: 06/17/19 09:02 Dose: 25 mg Quetiapine Fumarate (Seroquel -) 25 mg PO [facility] Last Admin: 06/16/19 22:30 Dose: 25 mg Trazodone HCl 100 mg/ (Trazodone HCl 50 mg) 150 mg PO [facility] Last Admin: 06/16/19 22:34 Dose: 150 mg a/p new swelling of the right foot and leg- get duplex r/o dvt +bunion right foot- no signs of deep seated infection 3 recent imaging tests for osteomyelitis April and May all negative for osteomyelitis iron def anemia- w/u per hospitalist d/w hospitalist
--- NOTE | 2019-06-17 15:35 | PN ---
Physical Exam: SUBJECTIVE: Patient seen and examined,right foot swelling, pain better, no fevers, chills or complaints. OBJECTIVE: Vital Signs Period Temp Pulse Resp BP Sys/Persaud Pulse Ox Last 24 Hr 98.0 F-100.4 F 75-86 18-20 132-169/66-85 96 Intake & Output 06/14/19 06/15/19 06/16/19 06/17/19 23:59 23:59 23:59 23:59 Intake Total 300 1170 750 500 Balance 300 1170 750 500 Weight 179 lb GENERAL: sitting in chair in no acute distress Chest: CTAb, no rales or wheezing Abdomen:soft, obese, NT Extremities: right foot swelling, right bunion with minimal swelling/erythema overlying, no calf tenderness Neck: soft, supple CVS:S1S2 regular Laboratory Results - last 24 hr 06/16/19 06/16/19 06/16/19 11:53 17:02 21:01 POC Glucometer 174 295 236 06/17/19 06/17/19 06:08 11:11 POC Glucometer 143 226 Active Medications Generic Name Dose Route Start Last Admin Trade Name Freq PRN Reason Stop Dose Admin Acetaminophen 650 mg 06/12/19 20:36 06/12/19 23:58 Tylenol - PO 650 mg Q4H PRN Administration PAIN Amlodipine Besylate 10 mg 06/13/19 10:00 06/17/19 09:03 Norvasc - PO 10 mg DAILY [facility] Administration Aspirin 81 mg 06/13/19 10:00 06/17/19 09:03 Ecotrin - PO 81 mg DAILY [facility] Administration Buspirone HCl 10 mg 06/12/19 22:00 06/17/19 09:02 Buspar - PO 10 mg BID [facility] Administration Clopidogrel Bisulfate 75 mg 06/13/19 10:00 06/17/19 09:03 Plavix - PO 75 mg DAILY [facility] Administration Donepezil HCl 5 mg 06/13/19 22:00 06/16/19 22:30 Aricept - PO 5 mg HS [facility] Administration Heparin Sodium (Porcine) 5,000 unit 06/12/19 22:00 06/17/19 06:11 Heparin - SQ 5,000 unit TID [facility] Administration Ampicillin Sodium/Sulbactam 100 mls @ 200 mls/hr 06/13/19 12:42 06/17/19 09: 02 Sodium 1.5 gm/ Sodium Chloride IVPB 200 mls/hr Q6H-IV [facility] Administration Insulin Aspart 1 vial 06/13/19 06:41 06/17/19 12:36 Novolog Vial Sliding Scale - SQ 4 units ACHS [facility] Administration Protocol Insulin Detemir 10 units 06/13/19 19:00 06/17/19 06:11 Levemir Vial SQ 10 units 0700,1900 [facility] Administration Losartan Potassium 100 mg 06/13/19 10:00 06/17/19 09:03 Cozaar - PO 100 mg DAILY [facility] Administration Metoprolol Tartrate 25 mg 06/12/19 22:00 06/17/19 09:02 Lopressor - PO 25 mg BID [facility] Administration Quetiapine Fumarate 25 mg 06/12/19 22:00 06/16/19 22:30 Seroquel - PO 25 mg HS [facility] Administration Trazodone HCl 100 mg/ 150 mg 06/13/19 22:00 06/16/19 22:34 Trazodone HCl 50 mg PO 150 mg HS [facility] Administration Home Medications Medication Instructions Recorded Aspirin [Aspirin EC] 81 mg PO DAILY 08/17/17 Donepezil HCl [Aricept -] 5 mg PO DAILY 08/17/17 Buspirone HCl [Buspar -] 10 mg PO BID #60 tablet 09/11/17 metFORMIN HCL [Metformin HCl] 500 mg PO BID #0 tab 09/11/17 Clopidogrel Bisulfate [Plavix] 75 mg PO DAILY 05/27/19 Insulin Aspart [Novolog] 20 unit SQ BID 05/27/19 Insulin Degludec [Tresiba] 40 unit SQ DAILY 05/27/19 Quetiapine Fumarate [Seroquel -] 25 mg PO HS 05/27/19 Trazodone HCl 150 mg PO DAILY 05/27/19 Losartan Potassium 100 mg PO DAILY 05/28/19 Amlodipine Besylate [Norvasc -] 10 mg PO DAILY #30 tablet 05/30/19 Amox-Tr/K Cl [Augmentin - 875Mg 1 tab PO BID #14 tablet 05/30/19 Tablet] Metoprolol Tartrate [Lopressor -] 25 mg PO BID #60 tablet 05/30/19 Microbiology 06/12/19 18:05 Blood - Peripheral Venous Blood Culture - Preliminary NO GROWTH OBTAINED AFTER 96 HOURS, INCUBATION TO CONTINUE FOR 1 DAYS. 06/12/19 18:05 Blood - Peripheral Venous Blood Culture - Preliminary NO GROWTH OBTAINED AFTER 96 HOURS, INCUBATION TO CONTINUE FOR 1 DAYS. 06/13/19 11:22 Wound Gram Stain - Final 06/13/19 11:22 Wound Wound Culture - Final Diphtheroid/Corynebacterium ASSESSMENT/PLAN: 83 year old female with PMH significant for DM, HTN, and HLD admitted with right foot cellulitis and left foot bunion with suspected secondary cellulitis. -Right foot cellulitis -Left foot bunion with suspected secondary celluitis -NIDDM -HTN -HLD Plan: ID/podiatry input noted discussed with Dr. mendoza, right foot swelling new from admission. Check RLE duplex. Unasyn per ID. MRI neg for osteo Cultures noted. Vascular surgery input noted, outpatient follow up. Dispo pending clinical improvement and ID/podiatry input. Discussed with patient and family at bedside in detail, all questions answered. Visit type - Emergency Visit Emergency Visit: Yes ED Registration Date: 06/12/19 Care time: The patient presented to the Emergency Department on the above date and was hospitalized for further evaluation of their emergent condition. - New Patient This patient is new to me today: No - Critical Care Critical Care patient: No - Discharge Referral Referred to [facility] Med [facility].C[facility] No
--- NOTE | 2019-06-17 18:23 | PN ---
Progress Note (short form) - Note Progress Note: FUV right foot. VSS +edema, +pitting right foot and leg, +improved cellulitis, -drainage 1st mpj, Edema Grade 3 wound Discussed with Gato Teixeira on behalf of Dr. Velez. They cancelled ultrasound. ID re-ordered. Will follow. Continue abx as per ID. Discussed with daughter as she came to speak to me in wound care.
[2019-06-17] MEDS: DONEPEZIL HCL 5 MG TABLET (FP) PO SCH (22:36)
[2019-06-17] MEDS: QUEtiapine FUMARATE 25 MG TABLET (FP) PO SCH (22:36)
[2019-06-17] MEDS: traZODone HCL 100 MG, traZODone HCL 50 MG PO SCH (22:37)
[2019-06-18] MEDS ORDERED: SODIUM CHLORIDE 100 ML IVPB ONE ×4 (01:34→20:00)
[2019-06-18] MEDS ORDERED: AMPICILLIN NA/SULBACTAM NA 1.5 GM VIAL ONE ×4 (01:34→19:59)
[2019-06-18] MEDS: AMPICILLIN NA/SULBACTAM NA 1.5 GM in SODIUM CHLORIDE 100 ML IVPB SCH ×4 (02:57→20:26)
[2019-06-18] MEDS: ALBUTEROL SO4 0.083% IH SOL 2.5 MG/3 ML VIAL.NEB. NEB PRN ×2 (03:30→20:22)
[2019-06-18] MEDS: INSULIN (LEVEMIR) 100 UNITS/ML UNITS SQ SCH ×2 (06:29→18:32)
[2019-06-18] MEDS: HEPARIN NA (PORCINE) 5,000 UNITS/ML 1ML VIAL SQ SCH ×3 (06:29→22:01)
[2019-06-18] MEDS: INSULIN SLIDING SCALE (NOVOLOG) 1 VIAL SQ SCH ×4 (06:34→22:11)
[2019-06-18] MEDS ORDERED: INSULIN (NOVOLOG) ASPART 100 UNITS/ML 10ML VIAL ONE ×2 (06:43→21:37)
[2019-06-18] MEDS ORDERED: INSULIN (LEVEMIR) 100 UNITS/ML UNITS SQ ONE (06:44)
[2019-06-18] MEDS: FERROUS GLUCONATE 324 MG TAB (FP) PO SCH (09:27)
[2019-06-18] MEDS: METOPROLOL TARTRATE 25 MG TABLET (FP) PO SCH ×2 (09:27→22:01)
[2019-06-18] MEDS: CLOPIDOGREL BISULFATE 75 MG TABLET (FP) PO SCH (09:27)
[2019-06-18] MEDS: LOSARTAN POTASSIUM 50 MG TABLET (FP) PO SCH (09:28)
[2019-06-18] MEDS: amLODIPine BESYLATE 10 MG TABLET (FP) PO SCH (09:28)
[2019-06-18] MEDS: busPIRone HCL 10 MG TABLET (FP) PO SCH ×2 (09:28→22:02)
[2019-06-18] MEDS: ASPIRIN COATED 81 MG TABLET.EC PO SCH (09:28)
[2019-06-18] MEDS: DOCUSATE SODIUM 100 MG CAPSULE (FP) PO SCH (09:28)
--- NOTE | 2019-06-18 11:32 | PN ---
Progress Note (short form) - Note Progress Note: FUV right foot. VSS +edema, +pitting right foot and leg, +improved cellulitis, -drainage 1st mpj, no dvt on ultrasound Edema Grade 3 wound Continue abx as per ID. Patient may have [facility] vascular while in house. Vascular planning out patient care. Will follow till DC
--- NOTE | 2019-06-18 12:56 | PN ---
Progress Note (short form) - Note Progress Note: alert no complaints Vital Signs Period Temp Pulse Resp BP Sys/Persaud Pulse Ox Last 24 Hr 98.0 F-99.4 F 75-88 18-20 142-166/67-78 98 cor-rrr lungs clear abd protuberant ext +swelling of right foot and lower leg with edema- no erythema, +bunion, no drainage, minimal warmth Microbiology 06/12/19 18:05 Blood - Peripheral Venous Blood Culture - Final NO GROWTH AFTER 5 DAYS INCUBATION 06/12/19 18:05 Blood - Peripheral Venous Blood Culture - Final NO GROWTH AFTER 5 DAYS INCUBATION 06/13/19 11:22 Wound Gram Stain - Final 06/13/19 11:22 Wound Wound Culture - Final Diphtheroid/Corynebacterium CBC, BMP 06/16/19 06:37 06/16/19 06:37 MRI no osteo duplex no DVT a/p new swelling of the right foot and leg- duplex negative +bunion right foot- no signs of deep seated infection-on unasyn, can switch to po augmentin for another week 3 recent imaging tests for osteomyelitis April and May all negative for osteomyelitis iron def anemia- w/u per hospitalist
--- NOTE | 2019-06-18 16:21 | PN ---
Physical Exam: SUBJECTIVE: Patient seen and examined, no new complaints, still right foot swelling. NO fevers, chills or new pain. OBJECTIVE: Vital Signs Period Temp Pulse Resp BP Sys/Persaud Pulse Ox Last 24 Hr 97.8 F-99.4 F 77-88 19-20 142-166/75-78 98 Intake & Output 06/15/19 06/16/19 06/17/19 06/18/19 23:59 23:59 23:59 23:59 Intake Total 1170 750 700 Output Total 600 Balance 1170 750 700 -600 GENERAL: sitting in chair in no acute distress Chest: CTAb, no rales or wheezing Abdomen:soft, obese, NT Extremities: right foot swelling, right bunion with minimal swelling/erythema overlying, no calf tenderness Neck: soft, supple CVS:S1S2 regular Laboratory Results - last 24 hr 06/17/19 06/17/19 06/18/19 17:30 22:16 05:41 POC Glucometer 252 270 184 06/18/19 12:39 POC Glucometer 249 Active Medications Generic Name Dose Route Start Last Admin Trade Name Freq PRN Reason Stop Dose Admin Acetaminophen 650 mg 06/12/19 20:36 06/12/19 23:58 Tylenol - PO 650 mg Q4H PRN Administration PAIN Albuterol Sulfate 1 amp 06/18/19 03:14 06/18/19 03:30 Ventolin 0.083% Nebulizer Soln - NEB 1 amp Q4H PRN Administration SHORT OF BREATH/WHEEZING Amlodipine Besylate 10 mg 06/13/19 10:00 06/18/19 09:28 Norvasc - PO 10 mg DAILY [facility] Administration Aspirin 81 mg 06/13/19 10:00 06/18/19 09:28 Ecotrin - PO 81 mg DAILY [facility] Administration Buspirone HCl 10 mg 06/12/19 22:00 06/18/19 09:28 Buspar - PO 10 mg BID [facility] Administration Clopidogrel Bisulfate 75 mg 06/13/19 10:00 06/18/19 09:27 Plavix - PO 75 mg DAILY [facility] Administration Docusate Sodium 100 mg 06/18/19 10:00 06/18/19 09:28 Colace - PO Not Given DAILY [facility] Donepezil HCl 5 mg 06/13/19 22:00 06/17/19 22:36 Aricept - PO 5 mg HS [facility] Administration Ferrous Gluconate 324 mg 06/18/19 10:00 06/18/19 09:27 Fergon - PO 324 mg DAILY [facility] Administration Heparin Sodium (Porcine) 5,000 unit 06/12/19 22:00 06/18/19 14:48 Heparin - SQ 5,000 unit TID [facility] Administration Ampicillin Sodium/Sulbactam 100 mls @ 200 mls/hr 06/13/19 12:42 06/18/19 09: 27 Sodium 1.5 gm/ Sodium Chloride IVPB 200 mls/hr Q6H-IV [facility] Administration Insulin Aspart 1 vial 06/13/19 06:41 06/18/19 12:39 Novolog Vial Sliding Scale - SQ 4 units ACHS [facility] Administration Protocol Insulin Detemir 10 units 06/13/19 19:00 06/18/19 06:29 Levemir Vial SQ 10 units 0700,1900 [facility] Administration Losartan Potassium 100 mg 06/13/19 10:00 06/18/19 09:28 Cozaar - PO 100 mg DAILY [facility] Administration Metoprolol Tartrate 25 mg 06/12/19 22:00 06/18/19 09:27 Lopressor - PO 25 mg BID [facility] Administration Quetiapine Fumarate 25 mg 06/12/19 22:00 06/17/19 22:36 Seroquel - PO 25 mg HS [facility] Administration Trazodone HCl 100 mg/ 150 mg 06/13/19 22:00 06/17/19 22:37 Trazodone HCl 50 mg PO 150 mg HS [facility] Administration ASSESSMENT/PLAN: 83 year old female with PMH significant for DM, HTN, and HLD admitted with right foot cellulitis and left foot bunion with suspected secondary cellulitis. -Right foot cellulitis -Left foot bunion with suspected secondary celluitis -NIDDM -HTN -HLD Plan: ID/podiatry input noted MRI neg for osteo. LE duplex neg. Still unchanged edema, for [facility] vascular surgery input noted, anticipate outpatient follow up. Cultures noted. Dispo plan for dc on augmentin after navix with outpatient vascular surgery follow up. Discussed with patient and nursing in detail, all questions answered. Visit type - Emergency Visit Emergency Visit: Yes ED Registration Date: 06/12/19 Care time: The patient presented to the Emergency Department on the above date and was hospitalized for further evaluation of their emergent condition. - New Patient This patient is new to me today: No - Critical Care Critical Care patient: No - Discharge Referral Referred to [facility] Med [facility].C.: No
[2019-06-18] MEDS ORDERED: PT OWN MED DRAWER 7, Y5N ONE ×2 (19:39→21:31)
[2019-06-18] MEDS: QUEtiapine FUMARATE 25 MG TABLET (FP) PO SCH (22:01)
[2019-06-18] MEDS: DONEPEZIL HCL 5 MG TABLET (FP) PO SCH (22:01)
[2019-06-18] MEDS: traZODone HCL 100 MG, traZODone HCL 50 MG PO SCH (22:03)
[2019-06-19] MEDS ORDERED: SODIUM CHLORIDE 100 ML IVPB ONE ×3 (01:01→13:41)
[2019-06-19] MEDS ORDERED: AMPICILLIN NA/SULBACTAM NA 1.5 GM VIAL ONE ×3 (01:01→13:41)
[2019-06-19] MEDS: AMPICILLIN NA/SULBACTAM NA 1.5 GM in SODIUM CHLORIDE 100 ML IVPB SCH ×4 (02:58→22:46)
[2019-06-19] MEDS: ALBUTEROL SO4 0.083% IH SOL 2.5 MG/3 ML VIAL.NEB. NEB PRN (04:15)
[2019-06-19] MEDS: HEPARIN NA (PORCINE) 5,000 UNITS/ML 1ML VIAL SQ SCH ×2 (06:14→13:56)
[2019-06-19] MEDS: INSULIN (LEVEMIR) 100 UNITS/ML UNITS SQ SCH ×2 (06:14→18:43)
[2019-06-19] MEDS: INSULIN SLIDING SCALE (NOVOLOG) 1 VIAL SQ SCH ×4 (06:15→22:49)
[2019-06-19] MEDS: FERROUS GLUCONATE 324 MG TAB (FP) PO SCH (10:03)
[2019-06-19] MEDS: LOSARTAN POTASSIUM 50 MG TABLET (FP) PO SCH (10:04)
[2019-06-19] MEDS: DOCUSATE SODIUM 100 MG CAPSULE (FP) PO SCH (10:04)
[2019-06-19] MEDS: METOPROLOL TARTRATE 25 MG TABLET (FP) PO SCH ×2 (10:04→22:47)
[2019-06-19] MEDS: busPIRone HCL 10 MG TABLET (FP) PO SCH ×2 (10:04→22:47)
[2019-06-19] MEDS: ASPIRIN COATED 81 MG TABLET.EC PO SCH (10:04)
[2019-06-19] MEDS: CLOPIDOGREL BISULFATE 75 MG TABLET (FP) PO SCH (10:05)
[2019-06-19] MEDS: amLODIPine BESYLATE 10 MG TABLET (FP) PO SCH (10:13)
--- NOTE | 2019-06-19 16:01 | PN ---
Physical Exam: SUBJECTIVE: Patient seen and examined, still with right foot swelling, no new complaints. OBJECTIVE: Vital Signs Period Temp Pulse Resp BP Sys/Persaud Pulse Ox Last 24 Hr 98.1 F-99.2 F 74-99 20-20 142-183/69-89 95-95 Intake & Output 06/16/19 06/17/19 06/18/19 06/19/19 23:59 23:59 23:59 23:59 Intake Total 750 663 750 9571 Output Total 600 Balance 750 700 -150 1175 GENERAL: The patient is awake, alert, and fully oriented, in no acute distress. HEAD: Normal with no signs of trauma. EYES: PERRL, extraocular movements intact, sclera anicteric, conjunctiva clear. No ptosis. ENT: Ears normal, nares patent, oropharynx clear without exudates, moist mucous membranes. NECK: Trachea midline, full range of motion, supple. LUNGS: Breath sounds equal, clear to auscultation bilaterally, no wheezes, no crackles, no accessory muscle use. HEART: Regular rate and rhythm, S1, S2 without murmur, rub or gallop. ABDOMEN: Soft, nontender, nondistended, normoactive bowel sounds, no guarding, no rebound, no hepatosplenomegaly, no masses. EXTREMITIES: 2+ pulses, warm, well-perfused, no edema. NEUROLOGICAL: Cranial nerves II through XII grossly intact. Normal speech, gait not observed. PSYCH: Normal mood, normal affect. SKIN: Warm, dry, normal turgor, no rashes or lesions noted Laboratory Results - last 24 hr 06/18/19 06/18/19 06/19/19 17:56 22:08 06:12 POC Glucometer 246 252 140 06/19/19 11:56 POC Glucometer 226 Active Medications Generic Name Dose Route Start Last Admin Trade Name Freq PRN Reason Stop Dose Admin Acetaminophen 650 mg 06/12/19 20:36 06/12/19 23:58 Tylenol - PO 650 mg Q4H PRN Administration PAIN Albuterol Sulfate 1 amp 06/18/19 03:14 06/19/19 04:15 Ventolin 0.083% Nebulizer Soln - NEB 1 amp Q4H PRN Administration SHORT OF BREATH/WHEEZING Amlodipine Besylate 10 mg 06/13/19 10:00 06/19/19 10:13 Norvasc - PO 10 mg DAILY [facility] Administration Aspirin 81 mg 06/13/19 10:00 06/19/19 10:04 Ecotrin - PO 81 mg DAILY [facility] Administration Buspirone HCl 10 mg 06/12/19 22:00 06/19/19 10:04 Buspar - PO 10 mg BID [facility] Administration Clopidogrel Bisulfate 75 mg 06/13/19 10:00 06/19/19 10:05 Plavix - PO 75 mg DAILY [facility] Administration Docusate Sodium 100 mg 06/18/19 10:00 06/19/19 10:04 Colace - PO 100 mg DAILY [facility] Administration Donepezil HCl 5 mg 06/13/19 22:00 06/18/19 22:01 Aricept - PO 5 mg HS [facility] Administration Ferrous Gluconate 324 mg 06/18/19 10:00 06/19/19 10:03 Fergon - PO 324 mg DAILY [facility] Administration Heparin Sodium (Porcine) 5,000 unit 06/12/19 22:00 06/19/19 13:56 Heparin - SQ 5,000 unit TID [facility] Administration Ampicillin Sodium/Sulbactam 100 mls @ 200 mls/hr 06/13/19 12:42 06/19/19 13: 58 Sodium 1.5 gm/ Sodium Chloride IVPB 200 mls/hr Q6H-IV [facility] Administration Insulin Aspart 1 vial 06/13/19 06:41 06/19/19 12:00 Novolog Vial Sliding Scale - SQ 4 units ACHS [facility] Administration Protocol Insulin Detemir 10 units 06/13/19 19:00 06/19/19 06:14 Levemir Vial SQ 10 units 0700,1900 [facility] Administration Losartan Potassium 100 mg 06/13/19 10:00 06/19/19 10:04 Cozaar - PO 100 mg DAILY [facility] Administration Metoprolol Tartrate 25 mg 06/12/19 22:00 06/19/19 10:04 Lopressor - PO 25 mg BID [facility] Administration Quetiapine Fumarate 25 mg 06/12/19 22:00 06/18/19 22:01 Seroquel - PO 25 mg HS [facility] Administration Trazodone HCl 100 mg/ 150 mg 06/13/19 22:00 06/18/19 22:03 Trazodone HCl 50 mg PO 150 mg HS [facility] Administration ASSESSMENT/PLAN: 83 year old female with PMH significant for DM, HTN, and HLD admitted with right foot cellulitis and left foot bunion with suspected secondary cellulitis. -Right foot swelling, ?cellulitis vs trauma (from non fitting foot wear), vs vascular vs venous stasis -Right foot bunion with suspected secondary celluitis -NIDDM -HTN -HLD Plan: ID/podiatry input noted MRI neg for osteo. LE duplex neg. Still unchanged edema, but no tenderness /erythema, pain or fevers. NAVIX US done, vascular surgery input noted, anticipate outpatient follow up. Cultures noted. Dispo plan for dc on augmentin in 24 hours with outpatient follow up at wound care center for [facility] results and to discuss further plan, discussed with social work, await home health nurse arrangements. Discussed with daughter Paulette in detail, all questions answered. Visit type - Emergency Visit Emergency Visit: Yes ED Registration Date: 06/12/19 Care time: The patient presented to the Emergency Department on the above date and was hospitalized for further evaluation of their emergent condition. - New Patient This patient is new to me today: No - Critical Care Critical Care patient: No - Discharge Referral Referred to [id number] Med [facility] No
[2019-06-19] MEDS ORDERED: PT OWN MED DRAWER 7, Y5N ONE (22:42)
[2019-06-19] MEDS: QUEtiapine FUMARATE 25 MG TABLET (FP) PO SCH (22:47)
[2019-06-19] MEDS: DONEPEZIL HCL 5 MG TABLET (FP) PO SCH (22:47)
[2019-06-19] MEDS: traZODone HCL 100 MG, traZODone HCL 50 MG PO SCH (22:50)
[2019-06-20] MEDS ORDERED: AMPICILLIN NA/SULBACTAM NA 1.5 GM VIAL ONE ×2 (01:41→08:13)
[2019-06-20] MEDS ORDERED: SODIUM CHLORIDE 100 ML IVPB ONE ×2 (01:41→08:13)
[2019-06-20] MEDS: ALBUTEROL SO4 0.083% IH SOL 2.5 MG/3 ML VIAL.NEB. NEB PRN (02:10)
[2019-06-20] MEDS: AMPICILLIN NA/SULBACTAM NA 1.5 GM in SODIUM CHLORIDE 100 ML IVPB SCH ×2 (02:10→09:13)
[2019-06-20] MEDS: INSULIN (LEVEMIR) 100 UNITS/ML UNITS SQ SCH (06:34)
[2019-06-20] MEDS: INSULIN SLIDING SCALE (NOVOLOG) 1 VIAL SQ SCH ×2 (06:34→11:56)
[2019-06-20 07:34] LABS: BASO % 0.4 % (0-2.0); EOS % 3.3 % (0-4.5); HEMATOCRIT 27.6 % (32.4-45.2); HEMOGLOBIN 9.3 GM/dL (10.7-15.3); LYMPH % 21.6 % (8-40); MCH 27.5 pg (25.7-33.7); MCHC 33.7 g/dl (32.0-36.0); MEAN CELL VOLUME 81.6 fl (80-96); MEAN PLT VOLUME 7.6 fl (7.5-11.1); MONO % 6.6 % (3.8-10.2); NEUT % 68.1 % (42.8-82.8); PLATELET COUNT 356 K/MM3 (134-434); RBC 3.38 M/mm3 (3.60-5.2); RDW 15.6 % (11.6-15.6); WHITE BLOOD COUNT 7.9 K/mm3 (4.0-10.0)
[2019-06-20] MEDS ORDERED: PT OWN MED DRAWER 7, Y5N ONE (09:12)
[2019-06-20] MEDS: amLODIPine BESYLATE 10 MG TABLET (FP) PO SCH (09:14)
[2019-06-20] MEDS: busPIRone HCL 10 MG TABLET (FP) PO SCH (09:14)
[2019-06-20] MEDS: METOPROLOL TARTRATE 25 MG TABLET (FP) PO SCH (09:14)
[2019-06-20] MEDS: DOCUSATE SODIUM 100 MG CAPSULE (FP) PO SCH (09:14)
[2019-06-20] MEDS: CLOPIDOGREL BISULFATE 75 MG TABLET (FP) PO SCH (09:14)
[2019-06-20] MEDS: ASPIRIN COATED 81 MG TABLET.EC PO SCH (09:15)
[2019-06-20] MEDS: LOSARTAN POTASSIUM 50 MG TABLET (FP) PO SCH (09:16)
[2019-06-20] MEDS: FERROUS GLUCONATE 324 MG TAB (FP) PO SCH (09:16)
--- NOTE | 2019-06-20 10:34 | DS ---
Physical Exam: SUBJECTIVE: Patient seen and examined, feeling better, still with right foot swelling, no pain, fevers, chills, or concerns. Eager to go home. OBJECTIVE: Vital Signs Period Temp Pulse Resp BP Sys/Persaud Pulse Ox Last 24 Hr 98.4 F-99.1 F 74-91 20-20 142-153/69-81 Intake & Output 06/17/19 06/18/19 06/19/19 06/20/19 23:59 23:59 23:59 23:59 Intake Total 475 978 0480 400 Output Total 600 Balance 700 -150 2024 400 PHYSICAL EXAM GENERAL: sitting in chair in no acute distress Chest: CTAb, no rales or wheezing Abdomen:soft, obese, NT Extremities: right foot swelling, right bunion with minimal swelling/erythema overlying, no calf tenderness Neck: soft, supple CVS:S1S2 regular Psych: pleasant, co-operative LABS Laboratory Results - last 24 hr 06/19/19 06/19/19 06/19/19 11:56 16:51 21:49 WBC RBC Hgb Hct MCV MCH MCHC RDW Plt Count MPV Absolute Neuts (auto) Neutrophils % Lymphocytes % Monocytes % Eosinophils % Basophils % Nucleated RBC % POC Glucometer 226 217 229 06/20/19 06/20/19 06:29 06:30 WBC 7.9 RBC 3.38 L Hgb 9.3 L Hct 27.6 L MCV 81.6 MCH 27.5 MCHC 33.7 RDW 15.6 Plt Count 356 MPV 7.6 Absolute Neuts (auto) 5.4 Neutrophils % 68.1 Lymphocytes % 21.6 Monocytes % 6.6 Eosinophils % 3.3 D Basophils % 0.4 Nucleated RBC % 0 POC Glucometer 226 Microbiology 06/12/19 18:05 Blood - Peripheral Venous Blood Culture - Final NO GROWTH AFTER 5 DAYS INCUBATION 06/12/19 18:05 Blood - Peripheral Venous Blood Culture - Final NO GROWTH AFTER 5 DAYS INCUBATION 06/13/19 11:22 Wound Gram Stain - Final 06/13/19 11:22 Wound Wound Culture - Final Diphtheroid/Corynebacterium MRI LE: There are severe generative changes with hallux valgus first metatarsophalangeal joint with a moderate amount fluid in the joint with subchondral degenerative cysts. No definite evidence of pathologic bone marrow replacement. No evidence of osteomyelitis. Dorsal swelling of the soft tissue compatible with cellulitis. Pression: Dorsal soft tissue swelling the right foot compatible with cellulitis. Soft tissue swelling surrounding the first metatarsophalangeal joint related to cellulitis or also to severe degenerative changes first metatarsophalangeal joint with hallux valgus deformity. There is moderate amount of fluid in the first metatarsophalangeal joint. No evidence of osteomyelitis. US Duplex LE: Clinical information given: right leg swelling, evaluate for DVT The exam was performed utilizing compression, grayscale, color flow and doppler sonography. There is no sonographic evidence of deep vein thrombosis. If there is clinical concern for possible isolated calf DVT or if there is a clinical diagnosis of uncomplicated superficial thrombophlebitis, then correlation with close follow up sonography is suggested. Impression: No DVT is identified involving the right leg. Please see above. HOSPITAL COURSE: Date of Admission:06/12/19 Date of Discharge: 06/20/19 Minutes to complete discharge: 40 Discharge Summary Reason For Visit: WOUND INFECTION Current Active Problems Anemia (Acute) Diabetic foot (Acute) Foot osteomyelitis, left (Acute) Non-healing ulcer of foot (Acute) Hospital Course: 83 year old female with PMH significant for DM, HTN, and HLD, recently admitted with right foot bunion with overlying cellulitis, s/p MRI neg for osteo, d/day on 1 week of augmentin admitted with persistent right foot findings . Patient and family reported not taking augmentin after dc and non fitting foot wear at home. She was seen by infectious disease and podiatry, placed on unasyn. She was noted with new right foot swelling. She had MRI Lower extremities as above but negative for osteomyelitis. She had Duplex LE neg for DVT. She was seen by vascular surgery and advised outpatient follow up. She has ongoing right foot swellinig but no fevers, leucocytosis, or tenderness and work up negative as above. She had NAVIX ultrasound results of which are currently pending. She was cleared by vascular surgery, ID and podiatry for dc with outpatient follow up at wound care center for follow up on NAVIX US results and further plan of care. She will be discharged on 1 week of augmentin. Patient and family ( daughter Paulette) have been counseled on medication compliance, strict blood sugar control, appropriate footwear, foot hygeine and need for follow up with wound care center this week for pending results and further plan of care. She will be discharged in stable condition. Condition: Stable - Instructions Diet, Activity, Other Instructions: You were admitted with right foot infection and swelling You were seen by vascular surgeon, heat treat worker and infectious disease You received antibiotics, MRI of your leg and ultrasound MEDICATIONS: Augmentin 875 mg twice daily for 7 days Start iron supplementation once daily Colace to avoid constipation while on iron pills. Continue other medications as before INSTRUCTIONS: Please note that you had the test NAVIX ultrasound, results of which are currently pending. You will need to follow up with Dr. Rankin at wound care this week to discuss results and further testing Also you will need follow up with Dr. Perla at the wound care this week. It is very important that you were well fitted shoes as recommended by your heat treat worker. You are started on iron supplementation once daily. Please ensure to maintain high fiber diet and take laxatives as needed while on this medication. FOLLOW UP: Wound care center at [facility] 5th floor this week, please call on discharge to confirm appointment With PCP in 1 week (please discuss further testing for anemia outpatient) With Dr. Mary and Dr. Rankin at wound care in 1 week as follows. If you notice worsening foot swelling, redness, fevers, chills or any new concerns, please call 911 or come to ED. Referrals: Ginny Van MD [Primary Care Provider] - Peng Rankin DO [Staff Physician] - Cherri Perla DPM [Staff Physician] - Disposition: VNS/HOME HEALTH CARE - Home Medications Comprehensive Discharge Medication List: Ambulatory Orders Aspirin [Aspirin EC] 81 mg PO DAILY 08/17/17 Donepezil HCl [Aricept -] 5 mg PO DAILY 08/17/17 Buspirone HCl [Buspar -] 10 mg PO BID #60 tablet 09/11/17 metFORMIN HCL [Metformin HCl] 500 mg PO BID #0 tab 09/11/17 Clopidogrel Bisulfate [Plavix] 75 mg PO DAILY 05/27/19 Insulin Aspart [Novolog] 20 unit SQ BID 05/27/19 Insulin Degludec [Tresiba] 40 unit SQ DAILY 05/27/19 Quetiapine Fumarate [Seroquel -] 25 mg PO HS 05/27/19 Trazodone HCl 150 mg PO DAILY 05/27/19 Losartan Potassium 100 mg PO DAILY 05/28/19 Amlodipine Besylate [Norvasc -] 10 mg PO DAILY #30 tablet 05/30/19 Metoprolol Tartrate [Lopressor -] 25 mg PO BID #60 tablet 05/30/19 Amox-Tr/K Cl [Augmentin 875-125mg Tablet -] 1 tab PO BID #14 tablet 06/20/19 Docusate Sodium [Colace -] 100 mg PO DAILY #30 capsule 06/20/19 Ferrous Gluconate [Fergon -] 324 mg PO DAILY #30 tab 06/20/19 Walker [Ultra-Light Rollator] 1 each MC DAILY #1 each 06/20/19 This patient is new to me today: No Emergency Visit: Yes ED Registration Date: 06/12/19 Care time: The patient presented to the Emergency Department on the above date and was hospitalized for further evaluation of their emergent condition. Critical Care patient: No - Discharge Referral Referred to [facility] Med [facility] No
[2019-06-20 11:21] VITALS: BP 149/70; PULSE 85; TEMP 98.3
== END 2019-06-20 15:12 | disposition home health service (06) | DRG 603 ==
LOC: JER 16:23 → JERBED 19:23 → J8W 23:27
PROVIDERS: ADMIT Internal Medicine; ATTEND Hospitalist
DX: L03.115 Cellulitis of right lower limb (principal); L97.518 Non-pressure chronic ulcer of other part of right foot with other specified severity; E87.1 Hypo-osmolality and hyponatremia; E11.621 Type 2 diabetes mellitus with foot ulcer; F03.90 Unspecified dementia, unspecified severity, without behavioral disturbance, psychotic disturbance, mood disturbance, and anxiety; E11.65 Type 2 diabetes mellitus with hyperglycemia; I10 Essential (primary) hypertension; D72.829 Elevated white blood cell count, unspecified; E78.5 Hyperlipidemia, unspecified; D64.9 Anemia, unspecified; E07.9 Disorder of thyroid, unspecified; K21.9 Gastro-esophageal reflux disease without esophagitis; E11.42 Type 2 diabetes mellitus with diabetic polyneuropathy; F41.9 Anxiety disorder, unspecified; M21.612 Bunion of left foot; D50.9 Iron deficiency anemia, unspecified; Z86.73 Personal history of transient ischemic attack (TIA), and cerebral infarction without residual deficits; Z91.14 Patient's other noncompliance with medication regimen
CPT/HCPCS: 36415; 71046-TC-FY; 73630-TC-RT-FY; 73718-TC-RT; 80048; 80053; 80076; 81003; 82607; 82728; 82746; 82962; 83010; 83540; 83550; 83615; 83735; 84100; 84439; 84443; 84466; 84480; 84481; 85025; 85651; 86140; 87040; 87070; 87077; 87205; 93005; 93010; 93922; 93925-TC; 93926-TC; 93970-TC; 93971-TC; 93978; 94640; 99284-25; J1644; J1756

== ENCOUNTER 2019-10-06 18:27 | Inpatient (IN) | payer OTHER ==
--- NOTE | 2019-10-06 18:52 | PDOC ---
History of Present Illness - General Chief Complaint: Shortness of Breath Stated Complaint: shortness of breath possible Pneumonia Time Seen by Provider: 10/06/19 18:48 History Source: Patient Exam Limitations: No Limitations - History of Present Illness Initial Comments: Lynne Pierce is an 84 yo F w a pmh of HTN, HLD, CVA, IDDM, and right foot stage 1 ulcer who presents to the [facility] er with her daughter and granddaughter from [facility] after the spending the day there. She came here bc she was unhappy with the service she received at [facility]. The patient states she came to the hospital today because she has been experiencing shortness of breath , dyspnea on exertion, increased leg swelling, orthopnea, and increased miley for more pillows over the past few months. The patient had labs drawn at [facility] today which showed an elevated BNP level as well as a chest and abdomen CT which showed cardiomegaly and bilateral pleural effusions with the right side larger than the left. The patient also has a very small pericardial effusion. Patient denies ever having been diagnosed with heart failure. Patient states that her abdomen has also been swelling more than usual lately. Patient denies having any chest pain, fevers, headache, nausea, vomiting, diaphoresis, blurry vision, abdominal pain, dysuria, frequency, or urgency. PCP: Dr. Oliver Cards: None - thinks she saw Dr. Kinney once in the past PSH: cholecystectomy, Allergies: Shellfish Social Hx: Independent in ADL. Denies smoking, drinking, or other substance abuse. Past History - Past Medical History Allergies/Adverse Reactions: Allergies Allergy/AdvReac Type Severity Reaction Status Date / Time shellfish derived Allergy Verified 10/06/19 18:34 Home Medications: Ambulatory Orders Aspirin [Aspirin EC] 81 mg PO DAILY 08/17/17 Donepezil HCl [Aricept -] 5 mg PO DAILY 08/17/17 Buspirone HCl [Buspar -] 10 mg PO BID #60 tablet 09/11/17 metFORMIN HCL [Metformin HCl] 500 mg PO BID #0 tab 09/11/17 Clopidogrel Bisulfate [Plavix] 75 mg PO DAILY 05/27/19 Insulin Degludec [Tresiba] 40 unit SQ DAILY 05/27/19 Quetiapine Fumarate [Seroquel -] 25 mg PO HS 05/27/19 Trazodone HCl 150 mg PO DAILY 05/27/19 Losartan Potassium 100 mg PO DAILY 05/28/19 Amlodipine Besylate [Norvasc -] 10 mg PO DAILY #30 tablet 05/30/19 Metoprolol Tartrate [Lopressor -] 25 mg PO BID #60 tablet 05/30/19 Albuterol Sulfate Inhaler - [Ventolin Hfa Inhaler -] 1 - 2 inh PO QID 10/06/19 Anemia: No Asthma: Yes Cancer: No Cardiac Disorders: No CVA: Yes (Y; TIA) COPD: No CHF: No Dementia: No Diabetes: No GI Disorders: No Disorders: No HTN: Yes Hypercholesterolemia: Yes Liver Disease: No Psychiatric Problems: Yes (anxiety) Seizures: No Thyroid Disease: No - Surgical History Abdominal Surgery: No Appendectomy: No Cardiac Surgery: No Cholecystectomy: Yes Lung Surgery: No Neurologic Surgery: No Orthopedic Surgery: No - Immunization History Immunization Up to Date: Yes - Psycho Social/Smoking Cessation Hx Smoking History: Never smoked Have you smoked in the past 12 months: No Information on smoking cessation initiated: No Hx Alcohol Use: No Drug/Substance Use Hx: No Substance Use Type: None Hx Substance Use Treatment: No Review of Systems - Review of Systems Able to Perform ROS?: Yes Comments:: CONSTITUTIONAL: Present: fatigue Absent: fever, no chills EYES: Absent: visual changes ENT: Absent: ear pain, no sore throat CARDIOVASCULAR: Absent: chest pain, no palpitations RESPIRATORY: Present: cough, SOB GI: Present: Abdominal distension Absent: abdominal pain, no nausea, no vomiting, no constipation, no diarrhea GENITOURINARY: Absent: dysuria, no frequency, no hematuria MUSKULOSKELETAL: Absent: back pain, no arthralgia, no myalgia SKIN: Absent: rash NEURO: Absent: headache *Physical Exam - Vital Signs Last Vital Signs Temp Pulse Resp BP Pulse Ox 98.2 F 106 H 20 181/89 H 94 L 10/06/19 18:31 10/06/19 18:31 10/06/19 18:31 10/06/19 18:31 10/06/19 18:31 - Physical Exam Comments: GENERAL: Well-appearing, well-nourished. No apparent distress. HEENT: Normocephalic, atraumatic. PERRL, EOM intact. CARDIOVASCULAR: Normal S1, S2. Regular rate and rhythm. PULMONARY: Mild evidence of respiratory distress. B/l crackles at the bases. No wheezing or rhonchi. ABDOMEN: Mildly distended but non-tender. EXTREMITIES: 1+ edema bilaterally. Normal ROM in all four extremities. No gross deformities. SKIN: Stage 1 ulcer on right great toe. Warm, dry. NEUROLOGICAL: No focal neurological deficits. ED Treatment Course - LABORATORY CBC & Chemistry Diagram: 10/06/19 20:20 10/06/19 20:20 Medical Decision Making - Medical Decision Making Lynne Pierce is an 84 yo F w a pmh of HTN, HLD, CVA, IDDM, and right foot stage 1 ulcer who presents to the [facility] er with her daughter and granddaughter from [facility] after the spending the day there. She came here bc she was unhappy with the service she received at [facility]. The patient states she came to the hospital today because she has been experiencing shortness of breath , dyspnea on exertion, increased leg swelling, orthopnea, and increased miley for more pillows over the past few months. The patient had labs drawn at [facility] today which showed an elevated BNP level as well as a chest and abdomen CT which showed cardiomegaly and bilateral pleural effusions with the right side larger than the left. The patient also has a very small pericardial effusion. Patient denies ever having been diagnosed with heart failure. Patient states that her abdomen has also been swelling more than usual lately. Patient denies having any chest pain, fevers, headache, nausea, vomiting, diaphoresis, blurry vision, abdominal pain, dysuria, frequency, or urgency. Vital Signs Temp Pulse Resp BP Pulse Ox 98.2 F 101 H 20 181/89 H 98 10/06/19 18:31 10/06/19 19:00 10/06/19 18:31 10/06/19 18:31 10/06/19 19:00 DDx IBNLT: ACS/PR, arrhythmia, Heart failure, electrolyte/metabolic disturbance , anemia, pleural effusion/pulmonary edema, PNA, UTI Plan: Labs, EKG, CXR, urine, lasix, admit for heart failure EKG: Sinus tachycardia rate of 105, narrow complexes, normal axis, minimal voltage for LDH met, no ST elevations or depressions, no abnormal TWI's, no Q waves. QTc 491. IL 186. Labs: Mild anemia. Elevated BNP suggestive of heart failure. Elevated BUN suggestive of DARIA. Elevated glucose. CMP Sodium 131 mmol/L (136-145) L 10/06/19 20:20 Potassium 4.6 mmol/L (3.5-5.1) 10/06/19 20:20 Chloride 99 mmol/L (98-107) 10/06/19 20:20 Carbon Dioxide 25 mmol/L (21-32) 10/06/19 20:20 Anion Gap 7 MMOL/L (8-16) L 10/06/19 20:20 BUN 22.8 mg/dL (7-18) H 10/06/19 20:20 Creatinine 1.2 mg/dL (0.55-1.3) 10/06/19 20:20 Est GFR (CKD-EPI)AfAm 48.40 10/06/19 20:20 Est GFR (CKD-EPI)NonAf 41.76 10/06/19 20:20 Random Glucose 379 mg/dL (74-106) H 10/06/19 20:20 Calcium 8.8 mg/dL (8.5-10.1) 10/06/19 20:20 Magnesium 2.2 mg/dL (1.8-2.4) 10/06/19 20:20 Total Bilirubin 0.3 mg/dL (0.2-1) 10/06/19 20:20 AST 17 U/L (15-37) 10/06/19 20:20 ALT 25 U/L (13-61) 10/06/19 20:20 Alkaline Phosphatase 85 U/L (45-117) 10/06/19 20:20 Creatine Kinase 216 U/L (26-192) H 10/06/19 20:20 Creatine Kinase Index 1.4 % (0.0-5.0) 10/06/19 20:20 CK-MB (CK-2) 3.2 ng/mL (0.5-3.6) 10/06/19 20:20 Troponin I < 0.02 ng/ml (0.00-0.05) 10/06/19 20:20 B-Natriuretic Peptide 2058.3 pg/ml (5-450) H 10/06/19 20:20 Total Protein 7.8 g/dl (6.4-8.2) 10/06/19 20:20 Albumin 3.1 g/dl (3.4-5.0) L 10/06/19 20:20 CXR: Right sided increased markings suggestive of pleural effusion vs pulm edema. Disposition: Admit to hospital telemetry for new diagnosis of heart failure. Discharge - Discharge Information Problems reviewed: Yes Clinical Impression/Diagnosis: Pleural effusion Heart failure Qualifiers: Heart failure type: unspecified Heart failure chronicity: acute Qualified Code( s): I50.9 - Heart failure, unspecified Condition: Stable - Admission Yes - Follow up/Referral Referrals: Ginny Van MD [Primary Care Provider] - - Patient Discharge Instructions - Post Discharge Activity
[2019-10-06] MEDS ORDERED: FUROSEMIDE 40 MG/4 ML INJECTABLE VIAL IVPUSH ONE (19:32)
[2019-10-06] MEDS ORDERED: ASPIRIN 81 MG CHEWABLE TABLETS PO ONE (19:32)
--- NOTE | 2019-10-06 19:59 | PDOC ---
Attending Attestation - Resident Resident Name: Pola Avendaño - ED Attending Attestation I have performed the following: I have examined & evaluated the patient, The case was reviewed & discussed with the resident, I agree w/resident's findings & plan - HPI HPI: 10/06/19 22:55 see resident hpi - Physicial Exam PE: 10/06/19 22:55 see resident exam - Medical Decision Making 10/06/19 [id number] female with leg swelling and shortness of breath, exam consistent with CHF Chest x-ray shows bilateral pleural effusions, congestive changes and cardiomegaly Lasix 40 mg IV given Plan for admission to medical service for further evaluation
[2019-10-06] MEDS ORDERED: FUROSEMIDE 40 MG/4 ML INJECTABLE VIAL ONE (20:19)
[2019-10-06] MEDS ORDERED: ASPIRIN 81 MG CHEWABLE TABLETS ONE (20:19)
[2019-10-06 20:35] LABS: BASO % 0.1 % (0-2.0); HEMATOCRIT 28.7 % (32.4-45.2); HEMOGLOBIN 9.5 GM/dL (10.7-15.3); LYMPH % 11.3 % (8-40); MCH 26.4 pg (25.7-33.7); MCHC 33.1 g/dl (32.0-36.0); MEAN CELL VOLUME 79.7 fl (80-96); MEAN PLT VOLUME 7.5 fl (7.5-11.1); NEUT % 87.6 % (42.8-82.8); PLATELET COUNT 299 K/MM3 (134-434); RDW 16.4 % (11.6-15.6); WHITE BLOOD COUNT 5.7 K/mm3 (4.0-10.0)
[2019-10-06 20:47] LABS: INR 1.1 (0.83-1.09)
[2019-10-06 20:50] LABS: ACTIVATED PTT 37.8 SECONDS (25.2-36.5)
[2019-10-06 21:04] LABS: ALBUMIN 3.1 g/dl (3.4-5.0); BILIRUBIN,TOTAL 0.3 mg/dL (0.2-1); BLOOD UREA NITROGEN 22.8 mg/dL (7-18); CALCIUM 8.8 mg/dL (8.5-10.1); CREATININE 1.2 mg/dL (0.55-1.3); MAGNESIUM 2.2 mg/dL (1.8-2.4); N-TERMINAL BNP 2058.3 pg/ml (5-450); POTASSIUM 4.6 mmol/L (3.5-5.1); TOT PROT 7.8 g/dl (6.4-8.2)
[2019-10-06] MEDS ORDERED: SODIUM CHLORIDE 0.9% 500 ML INFUS.BAG IV ONE (21:46)
--- NOTE | 2019-10-06 22:14 | PDOC ---
*Physical Exam - Vital Signs Last Vital Signs Temp Pulse Resp BP Pulse Ox 98.2 F 97 H 19 159/77 96 10/06/19 18:31 10/06/19 20:25 10/06/19 20:25 10/06/19 20:25 10/06/19 20:25 ED Treatment Course - LABORATORY CBC & Chemistry Diagram: 10/06/19 20:20 10/06/19 20:20 - ADDITIONAL ORDERS Additional order review: Laboratory Results 10/06/19 10/06/19 10/06/19 20:20 20:20 20:20 PT with INR 13.00 INR 1.10 H PTT (Actin FS) 37.8 H Sodium 131 L Potassium 4.6 Chloride 99 Carbon Dioxide 25 Anion Gap 7 L BUN 22.8 H Creatinine 1.2 Est GFR (CKD-EPI)AfAm 48.40 Est GFR (CKD-EPI)NonAf 41.76 Random Glucose 379 H Calcium 8.8 Magnesium 2.2 Total Bilirubin 0.3 AST 17 ALT 25 Alkaline Phosphatase 85 Creatine Kinase 216 H Creatine Kinase Index 1.4 CK-MB (CK-2) 3.2 Troponin I < 0.02 B-Natriuretic Peptide 2058.3 H Total Protein 7.8 Albumin 3.1 L 10/06/19 20:20 RBC 3.60 MCV 79.7 L MCHC 33.1 RDW 16.4 H MPV 7.5 Neutrophils % 87.6 H D Lymphocytes % 11.3 D Monocytes % 1.0 L D Eosinophils % 0.0 D Basophils % 0.1 - Medications Given in the ED: ED Medications Discontinued Medications Generic Name Dose Route Start Last Admin Trade Name Freq PRN Reason Stop Dose Admin Aspirin 162 mg 10/06/19 19:32 10/06/19 20:00 Asa - PO 10/06/19 19:33 162 mg ONCE ONE Administration Furosemide 40 mg 10/06/19 19:32 10/06/19 20:00 Lasix Injection - IVPUSH 10/06/19 19:33 40 mg ONCE ONE Administration Medical Decision Making - Medical Decision Making Pt was signed out to me by resident Dr. Hawthorne, who explained the presentation, ED course, any pending results, and needed interventions. Pending results include admission. Pt is currently stable and is lying comfortably. Pt with new onset CHF, orthopnea, elevated BNP, pleural effusions. PCP is Rehan. 10/06/19 22:13 Hospitalist team being paged for admission. 10/06/19 22:16 Discharge - Discharge Information Problems reviewed: Yes Clinical Impression/Diagnosis: Pleural effusion Heart failure Qualifiers: Heart failure type: unspecified Heart failure chronicity: acute Qualified Code( s): I50.9 - Heart failure, unspecified Condition: Stable - Admission Yes - Follow up/Referral Referrals: Ginny Van MD [Primary Care Provider] - - Patient Discharge Instructions - Post Discharge Activity
--- NOTE | 2019-10-06 22:42 | PN ---
Teaching Attending Note Name of Resident: Yanira Jason ATTENDING PHYSICIAN STATEMENT I saw and evaluated the patient. I reviewed the resident's note and discussed the case with the resident. I agree with the resident's findings and plan as documented. SUBJECTIVE: Patient is an 84 year old woman with PMH of HTN, HLD, CVA, Anxiety disorder, Hypothyroidism, Cholecystectomy, IDDM, and Right foot stage 1 ulcer who presents to the ER for shortness of breath, dyspnea on exertion, increased leg swelling, orthopnea, and increased need for more pillows over the past few months. Accompanied by her daughter and granddaughter from [facility] after the spending the day there. She was unhappy with the service she received at [facility]. The patient had labs drawn at [facility] today which showed an elevated BNP level as well as a chest and abdomen CT which showed cardiomegaly and bilateral pleural effusions with the right side larger than the left. The patient also has a very small pericardial effusion. Patient denies ever having been diagnosed with heart failure. Patient states that her abdomen has also been swelling more than usual lately. She has had cough with orthopnea. Patient denies having any chest pain, fevers, headache, nausea, vomiting, diaphoresis, blurry vision, abdominal pain, dysuria, frequency, or urgency. Denies smoking, drinking, or other substance abuse. OBJECTIVE: Alert Vital Signs Period Temp Pulse Resp BP Sys/Persaud Pulse Ox Last 24 Hr 98.2 F 97-106 19-20 159-181/77-89 89-98 HEENT: No Jaundice, eye redness or discharge, PERRLA, EOMI. Normocephalic, atraumatic. External ears are normal and hearing is grossly intact. No nasal discharge. Neck: Supple, nontender. No palpable adenopathy or thyromegaly. No JVD Chest: Good effort. Bibasilar rales. Clear to percussion. Heart: Regular. No S3, rub or murmur Abdomen: Not distended, soft, nontender and no HSM. No rebound or guarding. Normal bowel sounds. Ext: Peripheral pulses intact. Leg edema. Right big toe ulcer. Skin: Warm and dry. No petechiae, rash or ecchymosis. Neuro: Alert. Oriented x3. CN 2-12 grossly intact. Sensation grossly intact in all four extremities and DTR are symmetric. Psych: Appropriate mood and affect. Good insight. Home Medications Medication Instructions Recorded Aspirin [Aspirin EC] 81 mg PO DAILY 08/17/17 Donepezil HCl [Aricept -] 5 mg PO DAILY 08/17/17 Buspirone HCl [Buspar -] 10 mg PO BID #60 tablet 09/11/17 metFORMIN HCL [Metformin HCl] 500 mg PO BID #0 tab 09/11/17 Clopidogrel Bisulfate [Plavix] 75 mg PO DAILY 05/27/19 Insulin Degludec [Tresiba] 40 unit SQ DAILY 05/27/19 Quetiapine Fumarate [Seroquel -] 25 mg PO HS 05/27/19 Trazodone HCl 150 mg PO DAILY 05/27/19 Losartan Potassium 100 mg PO DAILY 05/28/19 Amlodipine Besylate [Norvasc -] 10 mg PO DAILY #30 tablet 05/30/19 Metoprolol Tartrate [Lopressor -] 25 mg PO BID #60 tablet 05/30/19 Albuterol Sulfate Inhaler - 1 - 2 inh PO QID 10/06/19 [Ventolin Hfa Inhaler -] Abnormal Lab Results 10/06/19 10/06/19 10/06/19 20:20 20:20 20:20 Hgb 9.5 L Hct 28.7 L MCV 79.7 L RDW 16.4 H Neutrophils % 87.6 H D Monocytes % 1.0 L D INR 1.10 H PTT (Actin FS) 37.8 H Sodium Anion Gap BUN Random Glucose Creatine Kinase 216 H B-Natriuretic Peptide 2058.3 H Albumin 10/06/19 20:20 Hgb Hct MCV RDW Neutrophils % Monocytes % INR PTT (Actin FS) Sodium 131 L Anion Gap 7 L BUN 22.8 H Random Glucose 379 H Creatine Kinase B-Natriuretic Peptide Albumin 3.1 L ASSESSMENT AND PLAN: 1. New onset CHF? - Cause and precipitating factor unclear. CXR shows cardiomegaly, pulmonary vascular congestion and calcified aortic knob. EKG shows sinus tachycardia, LVH, prolonged QTc and nonspecific T wave changes. Will treat with escalating dose of IV lasix, get ECHO, daily standing weight, dietary salt restriction and decide on Entresto/Beta blockers after ECHO. Consult cardiology and wound care. Will continue comprehensive care for all of patients comorbid conditions including daily wound care. 2. Hypoalbuminemia - Possibly due to combined effects of proteinuria, malnutrition and inflammation associated with comorbid chronic conditions. Will ensure adequate dietary protein intake and also consult county coroner. 3. DM For now, we will hold the home diabetes drugs and implement sliding scale insulin regimen. Provide comprehensive diabetes care with patient teaching and counseling about the importance of adherence to prescribed diabetes regimen, euglycemia, eye care and foot care. 4. Obesity Counseled on the risks associated with obesity. Will provide patient all the necessary assistance, counseling and positive reinforcement to facilitate weight loss. Consult county coroner. 5. Hypertension - Restart suitable outpatient antihypertensive drugs when clinically appropriate. Revise regimen to ensure [id number] excellent BP control and addiction counselor patient on the injurious effects of uncontrolled hypertension. Nonpharmacologic measures to control hypertension like weight loss , salt restriction and exercise discussed. Importance of adherence to treatment regimen and attainment of normotension emphasized. 6. DVT prophylaxis - Lovenox 40 mg SQ q 24 hours. 7. Advance directives - Full code
[2019-10-06 22:44] LABS: EPI CELLS 0.9 /HPF (0-5/HPF); HYALINE CASTS 0 /lpf (0-8); URINE APPEARANCE CLEAR; URINE BACTERIA 44.7 /hpf (NEGATIVE); URINE BILIRUBIN NEGATIVE (NEGATIVE); URINE COLOR YELLOW; URINE GLUCOSE (UA) 3+ (NEGATIVE); URINE KETONE NEGATIVE (NEGATIVE); URINE LEUK ESTERASE NEGATIVE (NEGATIVE); URINE NITRITE NEGATIVE (NEGATIVE); URINE PROTEIN 2+ (NEGATIVE); URINE RBC 2 /hpf (0-4); URINE UROBILINOGEN 0.2 mg/dL (0.2-1.0); URINE WBC 1 /hpf (0-5)
[2019-10-06] MEDS ORDERED: QUEtiapine FUMARATE 25 MG TABLET (FP) ONE (23:50)
[2019-10-06] MEDS ORDERED: QUEtiapine FUMARATE 25 MG TABLET (FP) PO ONE (23:51)
--- NOTE | 2019-10-07 00:57 | HP ---
CHIEF COMPLAINT: SOB PCP: Dr. Best HISTORY OF PRESENT ILLNESS: 84 y/o female with PMH HTN, HLD, CVA with no residual deficits, IDDM, asthma, depression, anxiety, insomnia, and RIGHT foot ulcer c/o increasing SOB. SOB and non-productive cough started 1 week ago when her asthma symptoms exacerbated. She visited her PCP whom provided nebulizer tx and her cough resolved. Within the subsequent days she had increasing difficulty walking without becoming SOB. She has increased the number of pillows she uses from 2-3; endorses orthopnea and PND. She denies CP, NVFD. There have been no sick contacts or recent travel. ER course was notable for: (1) Chest x-ray shows bilateral pleural effusions, congestive changes and cardiomegaly (2) Lasix 40 mg IV administered Recent Travel: Denies PAST MEDICAL HISTORY: HTN, HLD, CVA with no residual deficits, IDDM, asthma, depression, anxiety, insomnia, and RIGHT foot ulcer PAST SURGICAL HISTORY: Cholecystectomy, x1 Social History: Smoking: Denies Alcohol: Denies Drugs: Denies Allergies: Shellfish derived Allergy (Verified 10/06/19 18:34) HOME MEDICATIONS: Home Medications Medication Instructions Recorded Aspirin [Aspirin EC] 81 mg PO DAILY 08/17/17 Donepezil HCl [Aricept -] 5 mg PO DAILY 08/17/17 Buspirone HCl [Buspar -] 10 mg PO BID #60 tablet 09/11/17 metFORMIN HCL [Metformin HCl] 500 mg PO BID #0 tab 09/11/17 Clopidogrel Bisulfate [Plavix] 75 mg PO DAILY 05/27/19 Insulin Degludec [Tresiba] 40 unit SQ DAILY 05/27/19 Quetiapine Fumarate [Seroquel -] 25 mg PO HS 05/27/19 Trazodone HCl 150 mg PO DAILY 05/27/19 Losartan Potassium 100 mg PO DAILY 05/28/19 Amlodipine Besylate [Norvasc -] 10 mg PO DAILY #30 tablet 05/30/19 Metoprolol Tartrate [Lopressor -] 25 mg PO BID #60 tablet 05/30/19 Albuterol Sulfate Inhaler - 1 - 2 inh PO QID 10/06/19 [Ventolin Hfa Inhaler -] REVIEW OF SYSTEMS CONSTITUTIONAL: Absent: fever, chills, diaphoresis, generalized weakness, malaise, loss of appetite, weight change HEENT: Absent: rhinorrhea, nasal congestion, throat pain, throat swelling, difficulty swallowing, mouth swelling, ear pain, eye pain, visual changes CARDIOVASCULAR: Absent: chest pain, syncope, palpitations, irregular heart rate, lightheadedness , peripheral edema RESPIRATORY: Absent: cough, shortness of breath, dyspnea with exertion, orthopnea, wheezing, stridor, hemoptysis GASTROINTESTINAL: Absent: abdominal pain, abdominal distension, nausea, vomiting, diarrhea, constipation, melena, hematochezia GENITOURINARY: Absent: dysuria, frequency, urgency, hesitancy, hematuria, flank pain, genital pain MUSCULOSKELETAL: Absent: myalgia, arthralgia, joint swelling, back pain, neck pain SKIN: Absent: rash, itching, pallor HEMATOLOGIC/IMMUNOLOGIC: Absent: easy bleeding, easy bruising, lymphadenopathy, frequent infections ENDOCRINE: Absent: unexplained weight gain, unexplained weight loss, heat intolerance, cold intolerance NEUROLOGIC: Absent: headache, focal weakness or paresthesias, dizziness, unsteady gait, seizure, mental status changes, bladder or bowel incontinence PSYCHIATRIC: Absent: anxiety, depression, suicidal or homicidal ideation, hallucinations. PHYSICAL EXAMINATION Vital Signs - 24 hr 10/06/19 10/06/19 10/06/19 18:31 19:00 20:25 Temperature 98.2 F Pulse Rate 106 H 101 H Pulse Rate [ 97 H Radial] Respiratory 20 19 Rate Blood Pressure 181/89 H Blood Pressure 159/77 [Right Arm] O2 Sat by Pulse 94 L 98 96 Oximetry (%) GENERAL: AOx3, in no acute distress, obese, sitting upright in chair OOB HEAD: NCAT EYES: MARICEL, EOMI, conjunctiva clear. Opthalmoscopic exam WNL ENT: Ears normal, nares patent, oropharynx clear without exudates. Moist mucous membranes. NECK: Normal range of motion, supple without lymphadenopathy, JVD, or masses. LUNGS: Wheezes in upper lobes BL. No accessory muscle use. HEART: RRR s1 s2 ABDOMEN: Soft, BS present in all 4 quadrants, non-distended, no JVD, MUSCULOSKELETAL: No bony deformities or tenderness. No CVA tenderness. UPPER EXTREMITIES: 2+ pulses, warm, well-perfused. No cyanosis. No clubbing. No peripheral edema. LOWER EXTREMITIES: 1+ edema from patella distally. 0.5x0.5cm lesion on RIGHT great toe. 2+ pulses, warm, well-perfused. No calf tenderness. NEUROLOGICAL: Cranial nerves II-XII intact. Normal speech. Gait not appreciated. PSYCHIATRIC: Cooperative. Good eye contact. Appropriate mood and affect. SKIN: 0.5x0.5cm lesion on RIGHT great toe. Warm, dry, normal turgor. Normal capillary refill. Laboratory Results - last 24 hr 10/06/19 10/06/19 10/06/19 20:20 20:20 20:20 WBC 5.7 RBC 3.60 Hgb 9.5 L Hct 28.7 L MCV 79.7 L MCH 26.4 MCHC 33.1 RDW 16.4 H Plt Count 299 MPV 7.5 Absolute Neuts (auto) 5.0 Neutrophils % 87.6 H D Lymphocytes % 11.3 D Monocytes % 1.0 L D Eosinophils % 0.0 D Basophils % 0.1 Nucleated RBC % 0 PT with INR 13.00 INR 1.10 H PTT (Actin FS) 37.8 H Sodium Potassium Chloride Carbon Dioxide Anion Gap BUN Creatinine Est GFR (CKD-EPI)AfAm Est GFR (CKD-EPI)NonAf Random Glucose Calcium Magnesium Total Bilirubin AST ALT Alkaline Phosphatase Creatine Kinase 216 H Creatine Kinase Index 1.4 CK-MB (CK-2) 3.2 Troponin I < 0.02 B-Natriuretic Peptide 2058.3 H Total Protein Albumin Urine Color Urine Appearance Urine pH Ur Specific [place] Urine Protein Urine Glucose (UA) Urine Ketones Urine Blood Urine Nitrite Urine Bilirubin Urine Urobilinogen Ur Leukocyte Esterase Urine WBC (Auto) Urine RBC (Auto) Urine Casts (Auto) U Epithel Cells (Auto) Urine Bacteria (Auto) 10/06/19 10/06/19 20:20 22:30 WBC RBC Hgb Hct MCV MCH MCHC RDW Plt Count MPV Absolute Neuts (auto) Neutrophils % Lymphocytes % Monocytes % Eosinophils % Basophils % Nucleated RBC % PT with INR INR PTT (Actin FS) Sodium 131 L Potassium 4.6 Chloride 99 Carbon Dioxide 25 Anion Gap 7 L BUN 22.8 H Creatinine 1.2 Est GFR (CKD-EPI)AfAm 48.40 Est GFR (CKD-EPI)NonAf 41.76 Random Glucose 379 H Calcium 8.8 Magnesium 2.2 Total Bilirubin 0.3 AST 17 ALT 25 Alkaline Phosphatase 85 Creatine Kinase Creatine Kinase Index CK-MB (CK-2) Troponin I B-Natriuretic Peptide Total Protein 7.8 Albumin 3.1 L Urine Color Yellow Urine Appearance Clear Urine pH 7.0 Ur Specific [place] 1.010 Urine Protein 2+ H Urine Glucose (UA) 3+ H Urine Ketones Negative Urine Blood Trace Urine Nitrite Negative Urine Bilirubin Negative Urine Urobilinogen 0.2 Ur Leukocyte Esterase Negative Urine WBC (Auto) 1 Urine RBC (Auto) 2 Urine Casts (Auto) 0 U Epithel Cells (Auto) 0.9 Urine Bacteria (Auto) 44.7 ASSESSMENT/PLAN: 84 y/o female with PMH HTN, HLD, CVA with no residual deficits, IDDM, asthma, depression, anxiety, insomnia, and RIGHT foot ulcer c/o increasing SOB, orthopnea, and PND. CXR with cardiomegally and EKG showing LVH. # CHF - Lasix and water, salt restriction - Echo - i/o - Daily weights - CXR cardiomegally, pulmonary vascular congestion and calcified aortic knob - EKG shows sinus tachycardia, LVH, prolonged QTc and nonspecific T wave changes - Consult cardiology # HTN - cont. home regimen # DM - ISS - Diabetic diet # Nephrosis - DM control - GABY # Hypoalbuminemia - + Proteinuria - Ensure adequate dietary protein intake - Consult director web # RIGHT great toe ulcer - Control DM - Consult wound care #F/E/N - Water restrict - Monitor i/o - Cont. to monitor - Diabetic, low sodium diet diet # DVT prophylaxis - Heparin SQ # Disposition - Admit to observation Maco Solis MD Visit type - Emergency Visit Emergency Visit: Yes ED Registration Date: 10/06/19 Care time: The patient presented to the Emergency Department on the above date and was hospitalized for further evaluation of their emergent condition. - New Patient This patient is new to me today: Yes Date on this admission: 10/07/19 - Critical Care Critical Care patient: No ATTENDING PHYSICIAN STATEMENT I saw and evaluated the patient. I reviewed the resident's note and discussed the case with the resident. I agree with the resident's findings and plan as documented. SUBJECTIVE: OBJECTIVE: ASSESSMENT AND PLAN:
[2019-10-07] MEDS ORDERED: HEPARIN NA (PORCINE) 5,000 UNITS/ML 1ML VIAL ONE ×3 (02:22→13:51)
[2019-10-07] MEDS: HEPARIN NA (PORCINE) 5,000 UNITS/ML 1ML VIAL SQ SCH ×4 (02:25→21:52)
[2019-10-07] MEDS ORDERED: FUROSEMIDE 40 MG/4 ML INJECTABLE VIAL IVPUSH ONE (05:25)
[2019-10-07] MEDS ORDERED: FUROSEMIDE 40 MG/4 ML INJECTABLE VIAL ONE ×3 (05:26→08:52)
[2019-10-07 06:11] LABS: BASO % 0.4 % (0-2.0); EOS % 0.1 % (0-4.5); HEMATOCRIT 28.5 % (32.4-45.2); HEMOGLOBIN 9.4 GM/dL (10.7-15.3); LYMPH % 19.4 % (8-40); MCH 26.2 pg (25.7-33.7); MCHC 33.1 g/dl (32.0-36.0); MEAN CELL VOLUME 79.2 fl (80-96); MEAN PLT VOLUME 7.7 fl (7.5-11.1); NEUT % 73.1 % (42.8-82.8); PLATELET COUNT 292 K/MM3 (134-434); RBC 3.59 M/mm3 (3.60-5.2); RDW 16.6 % (11.6-15.6); WHITE BLOOD COUNT 7.4 K/mm3 (4.0-10.0)
[2019-10-07 06:39] LABS: CALCIUM 8.8 mg/dL (8.5-10.1); CREATININE 1.1 mg/dL (0.55-1.3); MAGNESIUM 2.2 mg/dL (1.8-2.4); PHOSPHOROUS 3.7 mg/dL (2.5-4.9); POTASSIUM 4.2 mmol/L (3.5-5.1)
[2019-10-07] MEDS: INSULIN SLIDING SCALE (NOVOLOG) 1 VIAL SQ SCH ×4 (07:42→21:52)
--- NOTE | 2019-10-07 08:37 | PN ---
Teaching Attending Note Name of Resident: Angela Patel ATTENDING PHYSICIAN STATEMENT I saw and evaluated the patient. I reviewed the resident's note and discussed the case with the resident. I agree with the resident's findings and plan as documented. SUBJECTIVE: Patient is feeling better, continues to feel shortness of breath better than before though. OBJECTIVE: Vital Signs Temperature 98.6 F 10/07/19 07:10 Pulse Rate 94 H 10/07/19 07:10 Respiratory Rate 16 10/07/19 07:10 Blood Pressure 143/76 10/07/19 07:10 O2 Sat by Pulse Oximetry (%) 100 10/07/19 07:10 GENERAL: The patient is awake, alert, and fully oriented, in no acute distress. HEAD: Normal with no signs of trauma. EYES: PERRL, extraocular movements intact, sclera anicteric, conjunctiva clear. ENT: Ears normal, oropharynx clear without exudates, moist mucous membranes. NECK: Trachea midline, full range of motion, supple. LUNGS: Breath sounds equal, clear to auscultation bilaterally, no wheezes, no crackles, no accessory muscle use. HEART: Regular rate and rhythm, MAURY 2/6 , rub or gallop. ABDOMEN: Soft, nontender, nondistended, normoactive bowel sounds, no guarding, no rebound, no hepatosplenomegaly, no masses. EXTREMITIES: 2+ pulses, warm, well-perfused, no edema. NEUROLOGICAL: Cranial nerves II through XII grossly intact. Normal speech, gait not observed. PSYCH: Normal mood, normal affect. SKIN: Warm, dry, normal turgor, no rashes or lesions noted CBCD WBC 7.4 K/mm3 (4.0-10.0) 10/07/19 05:36 RBC 3.59 M/mm3 (3.60-5.2) L 10/07/19 05:36 Hgb 9.4 GM/dL (10.7-15.3) L 10/07/19 05:36 Hct 28.5 % (32.4-45.2) L 10/07/19 05:36 MCV 79.2 fl (80-96) L 10/07/19 05:36 MCHC 33.1 g/dl (32.0-36.0) 10/07/19 05:36 RDW 16.6 % (11.6-15.6) H 10/07/19 05:36 Plt Count 292 K/MM3 (134-434) 10/07/19 05:36 MPV 7.7 fl (7.5-11.1) 10/07/19 05:36 CMP Sodium 133 mmol/L (136-145) L 10/07/19 05:36 Potassium 4.2 mmol/L (3.5-5.1) 10/07/19 05:36 Chloride 100 mmol/L (98-107) 10/07/19 05:36 Carbon Dioxide 28 mmol/L (21-32) 10/07/19 05:36 Anion Gap 6 MMOL/L (8-16) L 10/07/19 05:36 BUN 23.0 mg/dL (7-18) H 10/07/19 05:36 Creatinine 1.1 mg/dL (0.55-1.3) 10/07/19 05:36 Random Glucose 193 mg/dL (74-106) H 10/07/19 05:36 Calcium 8.8 mg/dL (8.5-10.1) 10/07/19 05:36 Total Bilirubin 0.3 mg/dL (0.2-1) 10/06/19 20:20 AST 17 U/L (15-37) 10/06/19 20:20 ALT 25 U/L (13-61) 10/06/19 20:20 Alkaline Phosphatase 85 U/L (45-117) 10/06/19 20:20 Total Protein 7.8 g/dl (6.4-8.2) 10/06/19 20:20 Albumin 3.1 g/dl (3.4-5.0) L 10/06/19 20:20 CARDIAC ENZYMES Creatine Kinase 216 U/L (26-192) H 10/06/19 20:20 Troponin I < 0.02 ng/ml (0.00-0.05) 10/06/19 20:20 Current Medications Generic Name Dose Route Start Last Admin Trade Name Freq PRN Reason Stop Dose Admin Furosemide 40 mg 10/07/19 10:00 Lasix Injection - IVPUSH DAILY EDISON Heparin Sodium (Porcine) 5,000 unit 10/07/19 01:30 10/07/19 06:23 Heparin - SQ 5,000 unit TID EDISON Administration Insulin Aspart 1 vial 10/07/19 07:00 10/07/19 07:42 Novolog Vial Sliding Scale - SQ 2 unit ACHS EDISON Administration Protocol Home Medications Medication Instructions Recorded Aspirin [Aspirin EC] 81 mg PO DAILY 08/17/17 Donepezil HCl [Aricept -] 5 mg PO DAILY 08/17/17 Buspirone HCl [Buspar -] 10 mg PO BID #60 tablet 09/11/17 metFORMIN HCL [Metformin HCl] 500 mg PO BID #0 tab 09/11/17 Clopidogrel Bisulfate [Plavix] 75 mg PO DAILY 05/27/19 Insulin Degludec [Tresiba] 40 unit SQ DAILY 05/27/19 Quetiapine Fumarate [Seroquel -] 25 mg PO HS 05/27/19 Trazodone HCl 150 mg PO DAILY 05/27/19 Losartan Potassium 100 mg PO DAILY 05/28/19 Amlodipine Besylate [Norvasc -] 10 mg PO DAILY #30 tablet 05/30/19 Metoprolol Tartrate [Lopressor -] 25 mg PO BID #60 tablet 05/30/19 Albuterol Sulfate Inhaler - 1 - 2 inh PO QID 10/06/19 [Ventolin Hfa Inhaler -] Echo: ejf 55-60% otherwise Nl echo CXR cardiomegaly, with new congestive changes with possible superimposed infiltrates with bl effusions. EKG: sinus tach, rate of 105, Qtc 491, non specific T-wave changes ASSESSMENT AND PLAN: Patient is an 84yo female with PMHx of HTN, HLD, CVA with no residual deficits , IDDM, asthma, depression, anxiety, insomnia, and RIGHT foot ulcer c/o increasing SOB, orthopnea, and PND. CXR with cardiomegally and EKG showing LVH. #Acute diastolic CHF: BNP over 2k, on Lasix 40mg IV daily, restrict fluid, salt restriction, i/o's , echo ordered, a year ago as above, daily weights. cardio consult # HTN: cont. home regimen # DM: ISS, Diabetic diet # RIGHT great toe ulcer: Control DM, Consult wound care DVT prophylaxis: Heparin SQ
[2019-10-07] MEDS ORDERED: ALBUTEROL SO4 2.5/IPRATROPIUM 0.5 INH SOL 3 ML VIAL.NEB. NEB PRN (09:01)
[2019-10-07] MEDS ORDERED: ALBUTEROL SO4 2.5/IPRATROPIUM 0.5 INH SOL 3 ML VIAL.NEB. NEB ONE (09:44)
[2019-10-07] MEDS ORDERED: FUROSEMIDE 40 MG/4 ML INJECTABLE VIAL IVPUSH SCH (10:00)
--- NOTE | 2019-10-07 10:51 | PN ---
Physical Exam: SUBJECTIVE: Patient seen and examined. She reports a history of asthma and uses her inhaler ~5 times per week. She currently reports chest congestion and wheezing. She denies chest pain, shortness of breath, cough, fever, chills, n/v. OBJECTIVE: Vital Signs Period Temp Pulse Resp BP Sys/Persaud Pulse Ox Last 24 Hr 98.2 F-98.6 F 84-106 16-20 143-181/72-89 89-100 GENERAL: The patient is awake, alert, and fully oriented, in no acute distress. HEAD: Normal with no signs of trauma. EYES: PERRL, extraocular movements intact, conjunctiva clear. ENT: Ears normal, nares patent, moist mucous membranes. NECK: Trachea midline, full range of motion, supple. LUNGS: Decreased air entry in all lung rayo. Expiratory wheezing heard in upper and lower lobes bilaterally, no crackles, no accessory muscle use. on 2L O2 NC. HEART: Regular rate and rhythm,no murmur ABDOMEN: Soft, nontender, nondistended, normoactive bowel sounds EXTREMITIES: Warm, well-perfused, trace LE edema, right 1st toe ulcer NEUROLOGICAL: Cranial nerves II through XII grossly intact. Normal speech, gait not observed. PSYCH: Normal mood, normal affect. SKIN: Warm, dry, normal turgor Laboratory Results - last 24 hr 10/06/19 10/06/19 10/06/19 20:20 20:20 20:20 WBC 5.7 RBC 3.60 Hgb 9.5 L Hct 28.7 L MCV 79.7 L MCH 26.4 MCHC 33.1 RDW 16.4 H Plt Count 299 MPV 7.5 Absolute Neuts (auto) 5.0 Neutrophils % 87.6 H D Lymphocytes % 11.3 D Monocytes % 1.0 L D Eosinophils % 0.0 D Basophils % 0.1 Nucleated RBC % 0 PT with INR 13.00 INR 1.10 H PTT (Actin FS) 37.8 H Sodium Potassium Chloride Carbon Dioxide Anion Gap BUN Creatinine Est GFR (CKD-EPI)AfAm Est GFR (CKD-EPI)NonAf POC Glucometer Random Glucose Hemoglobin A1c % Calcium Phosphorus Magnesium Iron TIBC Iron Saturation Unsaturated IBC Ferritin Total Bilirubin AST ALT Alkaline Phosphatase Creatine Kinase 216 H Creatine Kinase Index 1.4 CK-MB (CK-2) 3.2 Troponin I < 0.02 B-Natriuretic Peptide 2058.3 H Total Protein Albumin Triglycerides Cholesterol Total LDL Cholesterol HDL Cholesterol TSH Urine Color Urine Appearance Urine pH Ur Specific [place] Urine Protein Urine Glucose (UA) Urine Ketones Urine Blood Urine Nitrite Urine Bilirubin Urine Urobilinogen Ur Leukocyte Esterase Urine WBC (Auto) Urine RBC (Auto) Urine Casts (Auto) U Epithel Cells (Auto) Urine Bacteria (Auto) 10/06/19 10/06/19 10/07/19 20:20 22:30 05:36 WBC 7.4 RBC 3.59 L Hgb 9.4 L Hct 28.5 L MCV 79.2 L MCH 26.2 MCHC 33.1 RDW 16.6 H Plt Count 292 MPV 7.7 Absolute Neuts (auto) 5.4 Neutrophils % 73.1 Lymphocytes % 19.4 D Monocytes % 7.0 D Eosinophils % 0.1 D Basophils % 0.4 D Nucleated RBC % 0 PT with INR INR PTT (Actin FS) Sodium 131 L Potassium 4.6 Chloride 99 Carbon Dioxide 25 Anion Gap 7 L BUN 22.8 H Creatinine 1.2 Est GFR (CKD-EPI)AfAm 48.40 Est GFR (CKD-EPI)NonAf 41.76 POC Glucometer Random Glucose 379 H Hemoglobin A1c % Calcium 8.8 Phosphorus Magnesium 2.2 Iron TIBC Iron Saturation Unsaturated IBC Ferritin Total Bilirubin 0.3 AST 17 ALT 25 Alkaline Phosphatase 85 Creatine Kinase Creatine Kinase Index CK-MB (CK-2) Troponin I B-Natriuretic Peptide Total Protein 7.8 Albumin 3.1 L Triglycerides Cholesterol Total LDL Cholesterol HDL Cholesterol TSH Urine Color Yellow Urine Appearance Clear Urine pH 7.0 Ur Specific [place] 1.010 Urine Protein 2+ H Urine Glucose (UA) 3+ H Urine Ketones Negative Urine Blood Trace Urine Nitrite Negative Urine Bilirubin Negative Urine Urobilinogen 0.2 Ur Leukocyte Esterase Negative Urine WBC (Auto) 1 Urine RBC (Auto) 2 Urine Casts (Auto) 0 U Epithel Cells (Auto) 0.9 Urine Bacteria (Auto) 44.7 10/07/19 10/07/19 10/07/19 05:36 05:36 05:36 WBC RBC Hgb Hct MCV MCH MCHC RDW Plt Count MPV Absolute Neuts (auto) Neutrophils % Lymphocytes % Monocytes % Eosinophils % Basophils % Nucleated RBC % PT with INR INR PTT (Actin FS) Sodium 133 L Potassium 4.2 Chloride 100 Carbon Dioxide 28 Anion Gap 6 L BUN 23.0 H Creatinine 1.1 Est GFR (CKD-EPI)AfAm 53.77 Est GFR (CKD-EPI)NonAf 46.39 POC Glucometer Random Glucose 193 H Hemoglobin A1c % 7.6 H Calcium 8.8 Phosphorus 3.7 Magnesium 2.2 Iron 32 L TIBC 333 Iron Saturation 9 L Unsaturated IBC 301 H Ferritin 22.8 Total Bilirubin AST ALT Alkaline Phosphatase Creatine Kinase Creatine Kinase Index CK-MB (CK-2) Troponin I B-Natriuretic Peptide Total Protein Albumin Triglycerides 82 Cholesterol 157 Total LDL Cholesterol 72 HDL Cholesterol 87 H TSH 5.61 H Urine Color Urine Appearance Urine pH Ur Specific [place] Urine Protein Urine Glucose (UA) Urine Ketones Urine Blood Urine Nitrite Urine Bilirubin Urine Urobilinogen Ur Leukocyte Esterase Urine WBC (Auto) Urine RBC (Auto) Urine Casts (Auto) U Epithel Cells (Auto) Urine Bacteria (Auto) 10/07/19 07:39 WBC RBC Hgb Hct MCV MCH MCHC RDW Plt Count MPV Absolute Neuts (auto) Neutrophils % Lymphocytes % Monocytes % Eosinophils % Basophils % Nucleated RBC % PT with INR INR PTT (Actin FS) Sodium Potassium Chloride Carbon Dioxide Anion Gap BUN Creatinine Est GFR (CKD-EPI)AfAm Est GFR (CKD-EPI)NonAf POC Glucometer 168 Random Glucose Hemoglobin A1c % Calcium Phosphorus Magnesium Iron TIBC Iron Saturation Unsaturated IBC Ferritin Total Bilirubin AST ALT Alkaline Phosphatase Creatine Kinase Creatine Kinase Index CK-MB (CK-2) Troponin I B-Natriuretic Peptide Total Protein Albumin Triglycerides Cholesterol Total LDL Cholesterol HDL Cholesterol TSH Urine Color Urine Appearance Urine pH Ur Specific [place] Urine Protein Urine Glucose (UA) Urine Ketones Urine Blood Urine Nitrite Urine Bilirubin Urine Urobilinogen Ur Leukocyte Esterase Urine WBC (Auto) Urine RBC (Auto) Urine Casts (Auto) U Epithel Cells (Auto) Urine Bacteria (Auto) Active Medications Current Medications Generic Name Dose Route Start Last Admin Trade Name Freq PRN Reason Stop Dose Admin Albuterol/Ipratropium 1 amp 10/07/19 09:01 10/07/19 09:52 Duoneb - NEB 1 amp Q4H PRN Administration SHORTNESS OF BREATH Amlodipine Besylate 5 mg 10/08/19 10:00 Norvasc - PO DAILY EDISON Atorvastatin Calcium 10 mg 10/07/19 22:00 Lipitor - PO HS [facility] Buspirone HCl 10 mg 10/07/19 22:00 Buspar - PO BID EDISON Clopidogrel Bisulfate 75 mg 10/07/19 14:45 10/07/19 15:05 Plavix - PO 75 mg DAILY EDISON Administration Furosemide 40 mg 10/08/19 06:00 Lasix Injection - IVPUSH BID@0600,1400 [facility] Heparin Sodium (Porcine) 5,000 unit 10/07/19 01:30 10/07/19 13:50 Heparin - SQ 5,000 unit TID EDISON Administration Insulin Aspart 1 vial 10/07/19 07:00 10/07/19 17:02 Novolog Vial Sliding Scale - SQ 2 unit ACHS EDISON Administration Protocol Levothyroxine Sodium 25 mcg 10/07/19 13:30 10/07/19 13:50 Synthroid - PO 25 mcg 0700 EDISON Administration Losartan Potassium 100 mg 10/08/19 10:00 Cozaar - PO DAILY EDISON Quetiapine Fumarate 25 mg 10/07/19 22:00 Seroquel - PO HS EDISON ASSESSMENT/PLAN: Ms. Pierce is an 84 y/o female with asthma, HTN, HLD, CVA, IDDM, depression, anxiety, insomnia, and right foot ulcer presents with increasing SOB and chest congestion. #asthma exacerbation Lungs were tight on exam with wheezing. 98% sat with NC. -duo-nebs Q4H PRN -O2 #?diastolic CHF BNP 2057. Echo shows normal EF, enlarged LA, RV pressure 30-40, trace TR. CXR shows cardiomegaly with superimposed infiltrates and bilateral effusions. -Lasix 40mg IV BID -monitor weights, I/Os -cards following #right foot ulcer -podiatry consult #microcytic anemia Hb 9.4. MVC 79.2. Has been anemic on previous labs. #HTN -resume home amlodipine and losartan #HLD -continue statin #DM -SSI and BGMs #hypothyroid TSH 5.61 -continue Synthroid DVT Ppx heparin FEN PO fluids monitor labs diabetic/low sodium diet Visit type - Emergency Visit Emergency Visit: Yes ED Registration Date: 10/06/19 Care time: The patient presented to the Emergency Department on the above date and was hospitalized for further evaluation of their emergent condition. - New Patient This patient is new to me today: Yes Date on this admission: 10/07/19 - Critical Care Critical Care patient: No - Discharge Referral Referred to [facility] Med [facility] No ATTENDING PHYSICIAN STATEMENT I saw and evaluated the patient. I reviewed the resident's note and discussed the case with the resident. I agree with the resident's findings and plan as documented. SUBJECTIVE: OBJECTIVE: ASSESSMENT AND PLAN:
--- NOTE | 2019-10-07 12:38 | EKG ---
Test Reason : Blood Pressure : / mmHG Vent. Rate : 105 BPM Atrial Rate : 105 BPM P-R Int : 186 ms QRS Dur : 086 ms QT Int : 372 ms P-R-T Axes : 066 044 069 degrees QTc Int : 491 ms SINUS TACHYCARDIA MINIMAL VOLTAGE CRITERIA FOR LVH, MAY BE NORMAL VARIANT NONSPECIFIC T WAVE ABNORMALITY ABNORMAL ECG WHEN COMPARED WITH ECG OF 12-JUN-2019 17:40, QT HAS LENGTHENED Confirmed by TAWNYA MORRIS, HUMPHREY ([id number]) on 10/07/2019 12:38:15 PM Referred By: Confirmed By:HUMPHREY BOWLING MD
--- NOTE | 2019-10-07 13:16 | ECHO ---
Name: THAPA, FRANCOIS Exam:Adult Echocardiogram Study Date: 10/07/2019 10:19 AM Age: 84 yrs Reason For Study: chf Height: 63 in Weight: 172 lb BSA: 1.8 m2 MMode/2D Measurements & Calculations IVSd: 1.1 cm Ao root diam: 3.3 cm LVIDd: 4.9 cm LA dimension: 4.3 cm LVIDs: 3.7 cm ACS: 1.8 cm LVPWd: 0.99 cm IVSs: 1.4 cm LVPWs: 1.4 cm EDV(Teich): 112.6 ml ESV(Teich): 58.6 ml Doppler Measurements & Calculations MV E max abhay: 77.7 cm/sec Ao V2 max: 121.1 cm/sec MV A max abhay: 95.5 cm/sec Ao max P.0 mmHg MV E/A: 0.81 Ao V2 mean: 73.0 cm/sec Ao mean P.0 mmHg Ao V2 VTI: 19.2 cm AI P1/2t: 367.7 msec AI max abhay: 385.1 cm/sec TR max abhay: 296.9 cm/sec AI max P.3 mmHg TR max P.3 mmHg AI dec slope: 306.7 cm/sec2 Med Peak E' Abhay: 2.9 cm/sec Med E/e': 26.6 Lat Peak E' Abhay: 4.1 cm/sec Lat E/e': 19.0 Procedure A complete two-dimensional transthoracic echocardiogram was performed (2D, M-mode, Doppler and color flow Doppler). The study was technically difficult with many images being suboptimal in quality. Left Ventricle The left ventricular size, thickness and function are normal. The left ventricular ejection fraction is normal. Ejection Fraction = 55-60%. Regional wall motion abnormalities cannot be excluded due to limi kimmie visualization. Right Ventricle The right ventricle is normal in size and function. Atria The left atrium is moderately dilated. Right atrial size is normal. Mitral Valve There is no mitral regurgitation noted. Tricuspid Valve There is trace tricuspid regurgitation. Right ventricular systolic pressure is elevated at 30-40mmHg. Aortic Valve Mild aortic regurgitation. Pulmonic Valve There is no pulmonic valvular regurgitation. Great Vessels The aortic root is normal size. Pericardium/Pleura There is no pericardial effusion. Interpretation Summary The study was technically difficult with many images being suboptimal in quality. The left ventricular size, thickness and function are normal The right ventricle is normal in size and function. The left atrium is moderately dilated. There is trace tricuspid regurgitation. Right ventricular systolic pressure is elevated at 30-40mmHg. Mild aortic regurgitation. MD Dheeraj Kinney 10/07/2019 01:16 PM
[2019-10-07] MEDS ORDERED: CLOPIDOGREL BISULFATE 75 MG TABLET (FP) PO SCH (13:30)
[2019-10-07] MEDS: LEVOTHYROXINE NA 25 MCG TABLET (FP) PO SCH (13:50)
[2019-10-07] MEDS ORDERED: LEVOTHYROXINE NA 25 MCG TABLET (FP) ONE (13:51)
[2019-10-07] MEDS: CLOPIDOGREL BISULFATE 75 MG TABLET (FP) PO SCH (15:05)
[2019-10-07 16:02] VITALS: BMI 32.3
--- NOTE | 2019-10-07 16:14 | CONSULT ---
Consult Consult Specialty:: Podiatry Reason for Consultation:: pretropic wound right with edema - History of Present Illness History of Present Illness: chronic wound right foot - Past Medical History [employer]: Yes: Peripheral Neuropathy, Other (cataract) Cardio/Vascular: Yes: HTN Gastrointestinal: Yes: GERD Renal/: Yes: Renal Inusuff Psych: Yes: Anxiety Endocrine: Yes: Diabetes Mellitus - Past Surgical History Past Surgical History: Yes: Cholecystectomy, - Alcohol/Substance Use Hx Alcohol Use: No History of Substance Use: reports: None - Smoking History Smoking history: Never smoked Have you smoked in the past 12 months: No - Social History Usual Living Arrangement: Alone ADL: Independent Occupation: retired History of Recent Travel: No Home Medications - Allergies Allergies/Adverse Reactions: Allergies Allergy/AdvReac Type Severity Reaction Status Date / Time shellfish derived Allergy Verified 10/06/19 18:34 - Home Medications Home Medications: Ambulatory Orders Donepezil HCl [Aricept -] 5 mg PO DAILY 08/17/17 Buspirone HCl [Buspar -] 10 mg PO BID #60 tablet 09/11/17 metFORMIN HCL [Metformin HCl] 500 mg PO BID #0 tab 09/11/17 Insulin Degludec [Tresiba] 24 unit SQ DAILY 05/27/19 Quetiapine Fumarate [Seroquel -] 25 mg PO HS 05/27/19 Trazodone HCl 150 mg PO DAILY 05/27/19 Losartan Potassium 100 mg PO DAILY 05/28/19 Albuterol Sulfate Inhaler - [Ventolin Hfa Inhaler -] 1 - 2 inh PO QID 10/06/19 Amlodipine Besylate [Norvasc -] 5 mg PO DAILY 10/07/19 Atorvastatin Ca [Lipitor] 10 mg PO DAILY 10/07/19 Clopidogrel Bisulfate [Clopidogrel] 75 mg PO DAILY 10/07/19 Ergocalciferol (Vitamin D2) [Vitamin D2] 50,000 unit PO WEEKLY 10/07/19 Fluticasone Propionate [Flovent Hfa] 2 puff IH DAILY 10/07/19 Levothyroxine [Synthroid -] 25 mcg PO DAILY 10/07/19 Physical Exam Vital Signs: Vital Signs Temperature 98 F 10/07/19 14:30 Pulse Rate 98 H 10/07/19 14:30 Respiratory Rate 19 10/07/19 14:30 Blood Pressure 153/80 10/07/19 14:30 O2 Sat by Pulse Oximetry (%) 95 10/07/19 14:09 Edema: LLE: 2+, RLE: 3+ Wound/Incision: Yes: Other (pretrophic wound right 1st mpj, -cellulitis, - drainage, +pitting edema) Labs: CBC, BMP 10/07/19 05:36 10/07/19 05:36 Assessment/Plan chronic wound r/o abscess right edema pvd Vascular consult. Ultrasound r/o abscess. Will follow. xray right foot.
--- NOTE | 2019-10-07 16:24 | CON.CARD ---
Consult Consult Specialty:: Cardiology Referred by:: Hospitalist Reason for Consultation:: CHF - History of Present Illness Chief Complaint: SOB History of Present Illness: 84 year old woman pmh HTN, DMII, HLD, CVA, Asthma, chronic R foot ulcer, admitted with progressively worsening sob/nelson, cough. treated for presumed asthma exacerbation as outpatient but did not improve thus came to the er. on admission found to have evidence of pulm vascular congestion. started on lasix pt seen and examined today in nad. feeling better since admission. sob improving. denies chest pain, palpitations. no change in chronic RLE edema. +pnd/orthopnea - History Source History Provided By: Patient, Family Member Limitations to Obtaining History: No Limitations - Past Medical History [employer]: Yes: Peripheral Neuropathy, Other (cataract) Cardio/Vascular: Yes: HTN Gastrointestinal: Yes: GERD Renal/: Yes: Renal Inusuff Psych: Yes: Anxiety Endocrine: Yes: Diabetes Mellitus - Past Surgical History Past Surgical History: Yes: Cholecystectomy, - Alcohol/Substance Use Hx Alcohol Use: No History of Substance Use: reports: None - Smoking History Smoking history: Never smoked Have you smoked in the past 12 months: No - Social History Usual Living Arrangement: Alone ADL: Independent Occupation: retired History of Recent Travel: No Home Medications - Allergies Allergies/Adverse Reactions: Allergies Allergy/AdvReac Type Severity Reaction Status Date / Time shellfish derived Allergy Verified 10/06/19 18:34 - Home Medications Home Medications: Ambulatory Orders Donepezil HCl [Aricept -] 5 mg PO DAILY 08/17/17 Buspirone HCl [Buspar -] 10 mg PO BID #60 tablet 09/11/17 metFORMIN HCL [Metformin HCl] 500 mg PO BID #0 tab 09/11/17 Insulin Degludec [Tresiba] 24 unit SQ DAILY 05/27/19 Quetiapine Fumarate [Seroquel -] 25 mg PO HS 05/27/19 Trazodone HCl 150 mg PO DAILY 05/27/19 Losartan Potassium 100 mg PO DAILY 05/28/19 Albuterol Sulfate Inhaler - [Ventolin Hfa Inhaler -] 1 - 2 inh PO QID 10/06/19 Amlodipine Besylate [Norvasc -] 5 mg PO DAILY 10/07/19 Atorvastatin Ca [Lipitor] 10 mg PO DAILY 10/07/19 Clopidogrel Bisulfate [Clopidogrel] 75 mg PO DAILY 10/07/19 Ergocalciferol (Vitamin D2) [Vitamin D2] 50,000 unit PO WEEKLY 10/07/19 Fluticasone Propionate [Flovent Hfa] 2 puff IH DAILY 10/07/19 Levothyroxine [Synthroid -] 25 mcg PO DAILY 10/07/19 Review of Systems - Review of Systems Constitutional: reports: Malaise. denies: No Symptoms, Chills, Diaphoresis, Fever, Lethargy, Loss of Appetite, Night Sweats, Unintentional Wgt. Loss, Weakness, Other Eyes: denies: No Symptoms, Blind Spots, Blurred Vision, Double Vision, Eye Pain , Floaters, Photophobia, Recent Change in Vision, Other HENT: denies: No Symptoms, Difficult Swallowing, Ear Discharge, Ear Pain, Epistaxis, Gingival Bleeding, Hearing Loss, Mouth Swelling, Nasal Congestion, Ocular Prosthesis, Throat Pain, Toothache, Ringing in Ears, Other Neck: denies: No Symptoms, Decreased ROM, Lumps, Pain on Movement, Stiffness, Swollen Glands, Tenderness, Other Cardiovascular: reports: Edema, Shortness of Breath. denies: No Symptoms, Chest Pain, Palpitations, Other Respiratory: reports: Cough, Exercise Intolerance, Orthopnea, PND, SOB, SOB on Exertion. denies: No Symptoms, Hemoptysis, Snoring, Wheezing, Other Gastrointestinal: denies: No Symptoms, Abdominal Pain, Bloating, Constipation, Diarrhea, Dysphagia, Indigestion, Melena, Nausea, Rectal Bleeding, Vomiting, Vomiting Blood, Other Genitourinary: denies: No Symptoms, Burning, Discharge, Dysuria, Flank Pain, Frequency, Hematuria, Incontinence, Lesions, Menses, Pain, Testicular Mass, Testicular Pain, Testicular Swelling, Urgency, Vaginal Bleeding, Other Breasts: denies: No Symptoms Reported, See HPI, Breast Implants, Discharge from Nipple, Lumps, Pain, Skin Changes, Other Musculoskeletal: denies: No Symptoms, Back Pain, Crepitus, Decreased ROM, Extremity Pain, Joint Pain, Joint Swelling, Muscle Pain, Muscle Cramps, Muscle Weakness, Other Integumentary: denies: No Symptoms, Blister, Bruising, Change in Color, Eczema, Erythema, Incision, Lesions, Lump, Pallor, Pruritis, Rash, Wound, Other Neurological: denies: No Symptoms, Change in LOC, Change in Speech, Confusion, Dizziness, Headache, Incoordination, Numbness, Parasthesia, Pre-Existing Deficit , Seizure, Syncope, Tremors, Unsteady Gait, Weakness, Other Endocrine: denies: No Symptoms, Excessive Sweating, Flushing, Increased Hunger, Increased Thirst, Intolerance to Cold, Intolerance to Heat, Unexplained Weight Gain, Unexplained Weight Loss, Other Hematology/Lymphatic: denies: No Symptoms, Easily Bruised, Excessive Bleeding, Swollen Glands, Other Psychiatric: denies: No Symptoms, Altered Sleep Pattern, Anxiety, Depression, Hallucinations, Panic, Paranoia, Suicidal, Other - Risk Factors Known Risk Factors: Yes: Age, Hypercholesterolemia, Hypertension Vital Signs: Vital Signs Temperature 98 F 10/07/19 14:30 Pulse Rate 98 H 10/07/19 14:30 Respiratory Rate 19 10/07/19 14:30 Blood Pressure 153/80 10/07/19 14:30 O2 Sat by Pulse Oximetry (%) 95 10/07/19 14:09 Constitutional: Yes: No Distress, Calm Eyes: Yes: Conjunctiva Clear, EOM Intact HENT: Yes: Atraumatic, Normocephalic Neck: Yes: Supple, Trachea Midline Respiratory: Yes: Regular, Diminished, On Nasal O2, Rales, Rhonchi. No: SOB, Wheezes Gastrointestinal: Yes: Normal Bowel Sounds, Soft. No: Distention Cardiovascular: Yes: Regular Rate and Rhythm. No: Bradycardia, Tachycardia, Pulse Irregular, Gallop, Rub, Varicosities JVD: No Carotid Bruit: No PMI: Non-Displaced Heart Sounds: Yes: S1, S2. No: Split S2, S3, S4, Clicks, Gallop, Rub, Bruit Murmur: No: Systolic Murmur, Diastolic Murmur Edema: Yes Edema: RLE: 1+ Peripheral Pulses WNL: Yes Peripheral Pulses: 2+ Left Doralis Pedis, 2+ Right Dorsalis Pedis Neurological: Yes: Alert, Oriented Psychiatric: Yes: Alert, Oriented - Other Data Labs, Other Data: CBC, BMP 10/07/19 05:36 10/07/19 05:36 INR, PTT INR 1.10 (0.83-1.09) H 10/06/19 20:20 Troponin, BNP 11/20/19 20:20 Troponin I < 0.02 B-Natriuretic Peptide 2058.3 H Troponin, BNP 10/06/19 20:20 Troponin I < 0.02 B-Natriuretic Peptide 2058.3 H sinus tach 105bpm, lvh, nsst Echo: Report Reviewed Imaging - Results Chest X-ray: Report Reviewed, Image Reviewed EKG: Report Reviewed, Image Reviewed Other: Report Reviewed, Image Reviewed (tele-nsr pvcs) Assessment/Plan 84 year old woman pmh HTN, DMII, HLD, CVA, Asthma, chronic R foot ulcer, admitted with progressively worsening sob/nelson, cough. treated for presumed asthma exacerbation as outpatient but did not improve thus came to the er. on admission found to have evidence of pulm vascular congestion. started on lasix pt seen and examined today in nad. feeling better since admission. sob improving. denies chest pain, palpitations. no change in chronic RLE edema. +pnd/orthopnea SOB- -likely at least partially secondary to acute on likely chronic diastolic CHF -uncertain precipitant -no signs of ACS -cardiac enzymes wnl, can check 2nd set -no ischemia on ECG -improving with Lasix -Echo showed normal LV/RV function, only mild valvular abnl -cont Lasix 40mg IV BID for now -monitor strict I/Os, daily weights, bun/creat, electrolytes and replete as needed -of note pt was recently found to be hypothyroid and started synthroid recently , unknown if playing a role in her symptoms -HTN control, resume home meds and re-evaluate, adjustments as needed
[2019-10-07] MEDS ORDERED: FLU VACCINE QUAD 60 MCG/0.5 ML (MDV 19-20) IM ONE (17:30)
[2019-10-07] MEDS ORDERED: PNEUMOC 13-VAL CONJ-DIP CRM/PF 0.5 ML DISP.SYRIN IM ONE (17:30)
[2019-10-07] MEDS: busPIRone HCL 10 MG TABLET (FP) PO SCH (21:52)
[2019-10-07] MEDS: QUEtiapine FUMARATE 25 MG TABLET (FP) PO SCH (21:52)
[2019-10-07] MEDS: ATORVASTATIN CA 10 MG TABLET (FP) PO SCH (21:52)
[2019-10-08] MEDS: FUROSEMIDE 40 MG/4 ML INJECTABLE VIAL IVPUSH SCH ×2 (05:32→14:18)
[2019-10-08] MEDS: HEPARIN NA (PORCINE) 5,000 UNITS/ML 1ML VIAL SQ SCH ×3 (05:32→21:33)
[2019-10-08 06:48] LABS: HEMATOCRIT 29.2 % (32.4-45.2); HEMOGLOBIN 9.7 GM/dL (10.7-15.3); MCH 26.3 pg (25.7-33.7); MEAN CELL VOLUME 79.5 fl (80-96); MEAN PLT VOLUME 7.8 fl (7.5-11.1); PLATELET COUNT 304 K/MM3 (134-434); RBC 3.68 M/mm3 (3.60-5.2); RDW 16.3 % (11.6-15.6); WHITE BLOOD COUNT 7.3 K/mm3 (4.0-10.0)
[2019-10-08] MEDS: INSULIN SLIDING SCALE (NOVOLOG) 1 VIAL SQ SCH ×4 (06:57→21:33)
[2019-10-08] MEDS: LEVOTHYROXINE NA 25 MCG TABLET (FP) PO SCH (06:57)
[2019-10-08 07:06] LABS: BLOOD UREA NITROGEN 27.8 mg/dL (7-18); CALCIUM 8.8 mg/dL (8.5-10.1); CREATININE 0.9 mg/dL (0.55-1.3); POTASSIUM 3.9 mmol/L (3.5-5.1)
--- NOTE | 2019-10-08 08:56 | CONSULT ---
- Consultation REQUESTING PROVIDER: CONSULT REQUEST: We have been asked to surgically evaluate this patient for RLE edema and wound? PCP:Nila Fernandez HISTORY OF PRESENT ILLNESS: Vascular surgery was consulted to evaluate pt RLE edema and toe wound? Pt states that her leg is not usually swollen, but has seen Dr. Rankin in the past in the wound clinic for swelling. Pt denies fever, chills, n/v. Pt denies any previous history of vascular disease or surgery. Pt denies previous history of leg wounds. PMHx: DM, HTN, HLD, Asthma, hypothyroidism Home Medications Medication Instructions Recorded Donepezil HCl [Aricept -] 5 mg PO DAILY 08/17/17 Buspirone HCl [Buspar -] 10 mg PO BID #60 tablet 09/11/17 metFORMIN HCL [Metformin HCl] 500 mg PO BID #0 tab 09/11/17 Insulin Degludec [Tresiba] 24 unit SQ DAILY 05/27/19 Quetiapine Fumarate [Seroquel -] 25 mg PO HS 05/27/19 Trazodone HCl 150 mg PO DAILY 05/27/19 Losartan Potassium 100 mg PO DAILY 05/28/19 Albuterol Sulfate Inhaler - 1 - 2 inh PO QID 10/06/19 [Ventolin Hfa Inhaler -] Amlodipine Besylate [Norvasc -] 5 mg PO DAILY 10/07/19 Atorvastatin Ca [Lipitor] 10 mg PO DAILY 10/07/19 Clopidogrel Bisulfate [Clopidogrel] 75 mg PO DAILY 10/07/19 Ergocalciferol (Vitamin D2) 50,000 unit PO WEEKLY 10/07/19 [Vitamin D2] Fluticasone Propionate [Flovent 2 puff IH DAILY 10/07/19 Hfa] Levothyroxine [Synthroid -] 25 mcg PO DAILY 10/07/19 Allergies Allergy/AdvReac Type Severity Reaction Status Date / Time shellfish derived Allergy Verified 10/06/19 18:34 PHYSICAL EXAM: GENERAL: Awake, alert, and fully oriented, in no acute distress. HEAD: Normal with no signs of trauma. EYES: PERRL, sclera anicteric, conjunctiva clear. NECK: Normal ROM LUNGS: Breathing comfortably. No accessory muscle use. HEART: Regular rate and rhythm. LOWER EXTREMITIES: dopplarable pulses B/L, warm, well-perfused. No calf tenderness. RLE +2 edema, LLE +2 edema, mildly tender callus on medial aspect of Rt great toe, no erythema or discharge. NEUROLOGICAL: Normal speech, gait not observed. PSYCH: Cooperative. Good eye contact. Appropriate mood and affect. SKIN: Warm, dry, normal turgor, no rashes or lesions noted. Vital Signs Temperature 97.6 F 10/08/19 06:22 Pulse Rate 109 H 10/08/19 06:22 Respiratory Rate 20 10/08/19 06:22 Blood Pressure 146/93 10/08/19 06:22 O2 Sat by Pulse Oximetry (%) 95 10/07/19 20:20 Lab Results WBC 7.3 K/mm3 (4.0-10.0) 10/08/19 05:40 RBC 3.68 M/mm3 (3.60-5.2) 10/08/19 05:40 Hgb 9.7 GM/dL (10.7-15.3) L 10/08/19 05:40 Hct 29.2 % (32.4-45.2) L 10/08/19 05:40 MCV 79.5 fl (80-96) L 10/08/19 05:40 MCHC 33.0 g/dl (32.0-36.0) 10/08/19 05:40 RDW 16.3 % (11.6-15.6) H 10/08/19 05:40 Plt Count 304 K/MM3 (134-434) 10/08/19 05:40 Sodium 138 mmol/L (136-145) 10/08/19 05:40 Potassium 3.9 mmol/L (3.5-5.1) 10/08/19 05:40 Chloride 102 mmol/L (98-107) 10/08/19 05:40 Carbon Dioxide 29 mmol/L (21-32) 10/08/19 05:40 Anion Gap 7 MMOL/L (8-16) L 10/08/19 05:40 BUN 27.8 mg/dL (7-18) H 10/08/19 05:40 Creatinine 0.9 mg/dL (0.55-1.3) 10/08/19 05:40 Random Glucose 138 mg/dL (74-106) H 10/08/19 05:40 Calcium 8.8 mg/dL (8.5-10.1) 10/08/19 05:40 INR 1.10 (0.83-1.09) H 10/06/19 20:20 Problem List - Problems (1) Leg swelling Assessment/Plan: Plan -pt has no need for acute vascular intervention at this time -recommend compression stockings for the edema -wound care per Podiatry Case discussed with Dr. Rankin who agrees with plan Code(s): M79.89 - OTHER SPECIFIED SOFT TISSUE DISORDERS
[2019-10-08] MEDS: LOSARTAN POTASSIUM 50 MG TABLET (FP) PO SCH (09:36)
[2019-10-08] MEDS: busPIRone HCL 10 MG TABLET (FP) PO SCH ×2 (09:36→21:33)
[2019-10-08] MEDS: amLODIPine BESYLATE 5 MG TABLET (FP) PO SCH (09:36)
[2019-10-08] MEDS: CLOPIDOGREL BISULFATE 75 MG TABLET (FP) PO SCH (09:36)
[2019-10-08 10:04] LABS: MAGNESIUM 2.2 mg/dL (1.8-2.4); PHOSPHOROUS 4.2 mg/dL (2.5-4.9)
--- NOTE | 2019-10-08 13:20 | PN ---
Progress Note, Physician Chief Complaint: Swelling and pain b/l feet. Improved pain today. History of Present Illness: chronic wound right foot - Current Medication List Current Medications: Active Medications Albuterol/Ipratropium (Duoneb -) 1 amp NEB Q4H PRN PRN Reason: SHORTNESS OF BREATH Last Admin: 10/07/19 09:52 Dose: 1 amp Amlodipine Besylate (Norvasc -) 5 mg PO DAILY [facility] Last Admin: 10/08/19 09:36 Dose: 5 mg Atorvastatin Calcium (Lipitor -) 10 mg PO HS [facility] Last Admin: 10/07/19 21:52 Dose: 10 mg Buspirone HCl (Buspar -) 10 mg PO BID [facility] Last Admin: 10/08/19 09:36 Dose: 10 mg Clopidogrel Bisulfate (Plavix -) 75 mg PO DAILY [facility] Last Admin: 10/08/19 09:36 Dose: 75 mg Furosemide (Lasix Injection -) 40 mg IVPUSH BID@0600,1400 [facility] Last Admin: 10/08/19 05:32 Dose: 40 mg Heparin Sodium (Porcine) (Heparin -) 5,000 unit SQ TID [facility] Last Admin: 10/08/19 05:32 Dose: 5,000 unit Insulin Aspart (Novolog Vial Sliding Scale -) 1 vial SQ ACHS [facility]; Protocol Last Admin: 10/08/19 11:59 Dose: 2 unit Levothyroxine Sodium (Synthroid -) 25 mcg PO 0700 [facility] Last Admin: 10/08/19 06:57 Dose: 25 mcg Losartan Potassium (Cozaar -) 100 mg PO DAILY [facility] Last Admin: 10/08/19 09:36 Dose: 100 mg Quetiapine Fumarate (Seroquel -) 25 mg PO HS [facility] Last Admin: 10/07/19 21:52 Dose: 25 mg - Objective Vital Signs: Vital Signs Temperature 98.5 F 10/08/19 09:35 Pulse Rate 89 10/08/19 09:35 Respiratory Rate 19 10/08/19 09:35 Blood Pressure 157/100 10/08/19 09:35 O2 Sat by Pulse Oximetry (%) 95 10/07/19 20:20 Extremities: Yes: Other (improved edema, improved tenderness, wound resolved right big toe joint grade 0) Labs: CBC, BMP 10/08/19 05:40 10/08/19 05:40 INR, PTT INR 1.10 (0.83-1.09) H 10/06/19 20:20 Assessment/Plan chronic wound resolved grade 0 edema improved pvd Vascular consult read and appreciated. Will follow. xray right foot image reviewed.
--- NOTE | 2019-10-08 15:19 | PN ---
Progress Note, Physician History of Present Illness: seen and examined today in nad. states she is feeling better. lying flat, comfortable. - Current Medication List Current Medications: Active Medications Albuterol/Ipratropium (Duoneb -) 1 amp NEB Q4H PRN PRN Reason: SHORTNESS OF BREATH Last Admin: 10/07/19 09:52 Dose: 1 amp Amlodipine Besylate (Norvasc -) 5 mg PO DAILY [facility] Last Admin: 10/08/19 09:36 Dose: 5 mg Atorvastatin Calcium (Lipitor -) 10 mg PO HS [facility] Last Admin: 10/07/19 21:52 Dose: 10 mg Buspirone HCl (Buspar -) 10 mg PO BID [facility] Last Admin: 10/08/19 09:36 Dose: 10 mg Clopidogrel Bisulfate (Plavix -) 75 mg PO DAILY [facility] Last Admin: 10/08/19 09:36 Dose: 75 mg Furosemide (Lasix Injection -) 40 mg IVPUSH BID@0600,1400 [facility] Last Admin: 10/08/19 14:18 Dose: 40 mg Heparin Sodium (Porcine) (Heparin -) 5,000 unit SQ TID [facility] Last Admin: 10/08/19 14:18 Dose: 5,000 unit Insulin Aspart (Novolog Vial Sliding Scale -) 1 vial SQ ACHS [facility]; Protocol Last Admin: 10/08/19 11:59 Dose: 2 unit Levothyroxine Sodium (Synthroid -) 25 mcg PO 0700 [facility] Last Admin: 10/08/19 06:57 Dose: 25 mcg Losartan Potassium (Cozaar -) 100 mg PO DAILY [facility] Last Admin: 10/08/19 09:36 Dose: 100 mg Quetiapine Fumarate (Seroquel -) 25 mg PO HS [facility] Last Admin: 10/07/19 21:52 Dose: 25 mg - Objective Vital Signs: Vital Signs Temperature 98.3 F 10/08/19 14:00 Pulse Rate 94 H 10/08/19 14:00 Respiratory Rate 20 10/08/19 14:00 Blood Pressure 138/79 10/08/19 14:00 O2 Sat by Pulse Oximetry (%) 96 10/08/19 09:00 Constitutional: Yes: No Distress, Calm Eyes: Yes: Conjunctiva Clear, EOM Intact HENT: Yes: Atraumatic, Normocephalic Neck: Yes: Supple, Trachea Midline Cardiovascular: Yes: Regular Rate and Rhythm, S1, S2. No: Bradycardia, Tachycardia, Pulse Irregular, Bruit, JVD, Gallop, Murmur, Rub, S3, S4, Varicosities Respiratory: Yes: Regular, Rales. No: Rhonchi, SOB, Wheezes Gastrointestinal: Yes: Normal Bowel Sounds, Soft. No: Distention, Tenderness Breast(s): Yes: WNL Musculoskeletal: Yes: WNL Extremities: Yes: WNL Edema: Yes Edema: LLE: Trace, RLE: Trace Peripheral Pulses WNL: Yes Peripheral Pulses: Left Doralis Pedis: 2+, Right Dorsalis Pedis: 2+ Neurological: Yes: Alert, Oriented Psychiatric: Yes: Alert, Oriented Labs: CBC, BMP 10/08/19 05:40 10/08/19 05:40 INR, PTT INR 1.10 (0.83-1.09) H 10/06/19 20:20 - ....Imaging Chest X-ray: Report Reviewed, Image Reviewed EKG: Report Reviewed, Image Reviewed Other: Report Reviewed, Image Reviewed (tele-no sig arrhythmias) Assessment/Plan 84 year old woman pmh HTN, DMII, HLD, CVA, Asthma, chronic R foot ulcer, admitted with progressively worsening sob/nelson, cough. treated for presumed asthma exacerbation as outpatient but did not improve thus came to the er. on admission found to have evidence of pulm vascular congestion. started on lasix pt seen and examined today in nad. feeling better since admission. sob improving. denies chest pain, palpitations. no change in chronic RLE edema. +pnd/orthopnea SOB- -likely at least partially secondary to acute on likely chronic diastolic CHF -uncertain precipitant -no signs of ACS -cardiac enzymes wnl -no ischemia on ECG -improving with Lasix -Echo showed normal LV/RV function, only mild valvular abnl -cont Lasix 40mg IV BID for now -can likely transition to po tomorrow -monitor strict I/Os, daily weights, bun/creat, electrolytes and replete as needed -of note pt was recently found to be hypothyroid and started synthroid recently , unknown if playing a role in her symptoms -HTN control, BP variable, for the most part adequately controlled
--- NOTE | 2019-10-08 15:28 | PN ---
Physical Exam: SUBJECTIVE: Patient seen and examined. She reports some improvement with shortness of breath and wheezing since yesterday. She denies chest pain, abdominal pain, n/v. She reports right foot pain. OBJECTIVE: Vital Signs Period Temp Pulse Resp BP Sys/Persaud Pulse Ox Last 24 Hr 97.2 F-98.5 F 87-109 18-20 138-157/76-100 95-96 GENERAL: The patient is awake, alert, and fully oriented, in no acute distress. HEAD: Normal with no signs of trauma. EYES: PERRL, extraocular movements intact, conjunctiva clear. ENT: Ears normal, nares patent, moist mucous membranes. NECK: Trachea midline, full range of motion, supple. LUNGS: Diffuse wheezing, no crackles, no accessory muscle use. on 2L O2 NC. Better air HEART: Regular rate and rhythm,no murmur ABDOMEN: Soft, nontender, nondistended, normoactive bowel sounds EXTREMITIES: Warm, well-perfused, trace LE edema, right 1st toe ulcer NEUROLOGICAL: Cranial nerves II through XII grossly intact. Normal speech, gait not observed. PSYCH: Normal mood, normal affect. SKIN: Warm, dry, normal turgor Laboratory Results - last 24 hr 10/07/19 10/07/19 10/08/19 16:59 21:30 05:31 WBC RBC Hgb Hct MCV MCH MCHC RDW Plt Count MPV Sodium Potassium Chloride Carbon Dioxide Anion Gap BUN Creatinine Est GFR (CKD-EPI)AfAm Est GFR (CKD-EPI)NonAf POC Glucometer 178 162 158 Random Glucose Calcium Phosphorus Magnesium 10/08/19 10/08/19 10/08/19 05:40 05:40 11:58 WBC 7.3 RBC 3.68 Hgb 9.7 L Hct 29.2 L MCV 79.5 L MCH 26.3 MCHC 33.0 RDW 16.3 H Plt Count 304 MPV 7.8 Sodium 138 Potassium 3.9 Chloride 102 Carbon Dioxide 29 Anion Gap 7 L BUN 27.8 H Creatinine 0.9 Est GFR (CKD-EPI)AfAm 68.53 Est GFR (CKD-EPI)NonAf 59.13 POC Glucometer 161 Random Glucose 138 H Calcium 8.8 Phosphorus 4.2 Magnesium 2.2 Active Medications Generic Name Dose Route Start Last Admin Trade Name Freq PRN Reason Stop Dose Admin Albuterol/Ipratropium 1 amp 10/07/19 09:01 10/07/19 09:52 Duoneb - NEB 1 amp Q4H PRN Administration SHORTNESS OF BREATH Amlodipine Besylate 5 mg 10/08/19 10:00 10/08/19 09:36 Norvasc - PO 5 mg DAILY [facility] Administration Atorvastatin Calcium 10 mg 10/07/19 22:00 10/07/19 21:52 Lipitor - PO 10 mg HS [facility] Administration Buspirone HCl 10 mg 10/07/19 22:00 10/08/19 09:36 Buspar - PO 10 mg BID [facility] Administration Clopidogrel Bisulfate 75 mg 10/07/19 14:45 10/08/19 09:36 Plavix - PO 75 mg DAILY [facility] Administration Furosemide 40 mg 10/08/19 06:00 10/08/19 14:18 Lasix Injection - IVPUSH 40 mg BID@0600,1400 [facility] Administration Heparin Sodium (Porcine) 5,000 unit 10/07/19 01:30 10/08/19 14:18 Heparin - SQ 5,000 unit TID [facility] Administration Insulin Aspart 1 vial 10/07/19 07:00 10/08/19 11:59 Novolog Vial Sliding Scale - SQ 2 unit ACHS [facility] Administration Protocol Levothyroxine Sodium 25 mcg 10/07/19 13:30 10/08/19 06:57 Synthroid - PO 25 mcg 0700 [facility] Administration Losartan Potassium 100 mg 10/08/19 10:00 10/08/19 09:36 Cozaar - PO 100 mg DAILY [facility] Administration Quetiapine Fumarate 25 mg 10/07/19 22:00 10/07/19 21:52 Seroquel - PO 25 mg HS [facility] Administration ASSESSMENT/PLAN: Ms. Pierce is an 84 y/o female with asthma, HTN, HLD, CVA, IDDM, depression, anxiety, insomnia, and right foot ulcer presents with increasing SOB and chest congestion. #asthma exacerbation Improved airway passage. -duo-nebs Q4H PRN -O2 #?diastolic CHF BNP 2057. Echo shows normal EF, enlarged LA, RV pressure 30-40, trace TR. CXR shows cardiomegaly with superimposed infiltrates and bilateral effusions. -Lasix 40mg IV BID- can likely transition to PO tomorrow -monitor weights, I/Os -cards following #right foot ulcer -bandaging #microcytic anemia Stable. -monitor #HTN -resume home amlodipine and losartan #HLD -continue statin #DM -SSI and BGMs #hypothyroid TSH 5.61 -continue Synthroid DVT Ppx heparin FEN PO fluids monitor labs diabetic/low sodium diet Visit type - Emergency Visit Emergency Visit: Yes ED Registration Date: 10/06/19 Care time: The patient presented to the Emergency Department on the above date and was hospitalized for further evaluation of their emergent condition. - New Patient This patient is new to me today: No - Critical Care Critical Care patient: No - Discharge Referral Referred to [facility] No ATTENDING PHYSICIAN STATEMENT I saw and evaluated the patient. I reviewed the resident's note and discussed the case with the resident. I agree with the resident's findings and plan as documented. SUBJECTIVE: OBJECTIVE: ASSESSMENT AND PLAN:
--- NOTE | 2019-10-08 20:35 | PN ---
Teaching Attending Note Name of Resident: Angela Patel ATTENDING PHYSICIAN STATEMENT I saw and evaluated the patient. I reviewed the resident's note and discussed the case with the resident. I agree with the resident's findings and plan as documented. SUBJECTIVE: Patient is better today with no acute distress. OBJECTIVE: Vital Signs Temperature 98.2 F 10/08/19 17:41 Pulse Rate 84 10/08/19 17:41 Respiratory Rate 18 10/08/19 17:41 Blood Pressure 163/98 10/08/19 17:41 O2 Sat by Pulse Oximetry (%) 96 10/08/19 09:00 GENERAL: The patient is awake, alert, and fully oriented, in no acute distress. HEAD: Normal with no signs of trauma. EYES: PERRL, extraocular movements intact, sclera anicteric, conjunctiva clear. ENT: Ears normal, oropharynx clear without exudates, moist mucous membranes. NECK: Trachea midline, full range of motion, supple. LUNGS: Breath sounds equal, clear to auscultation bilaterally, no wheezes, no crackles, no accessory muscle use. HEART: Regular rate and rhythm, MAURY 2/6 , rub or gallop. ABDOMEN: Soft, nontender, nondistended, normoactive bowel sounds, no guarding, no rebound, no hepatosplenomegaly, no masses. EXTREMITIES: 2+ pulses, warm, well-perfused, no edema. NEUROLOGICAL: Cranial nerves II through XII grossly intact. Normal speech, gait not observed. PSYCH: Normal mood, normal affect. SKIN: Warm, dry, normal turgor, no rashes or lesions noted CBCD WBC 7.3 K/mm3 (4.0-10.0) 10/08/19 05:40 RBC 3.68 M/mm3 (3.60-5.2) 10/08/19 05:40 Hgb 9.7 GM/dL (10.7-15.3) L 10/08/19 05:40 Hct 29.2 % (32.4-45.2) L 10/08/19 05:40 MCV 79.5 fl (80-96) L 10/08/19 05:40 MCHC 33.0 g/dl (32.0-36.0) 10/08/19 05:40 RDW 16.3 % (11.6-15.6) H 10/08/19 05:40 Plt Count 304 K/MM3 (134-434) 10/08/19 05:40 MPV 7.8 fl (7.5-11.1) 10/08/19 05:40 CMP Sodium 138 mmol/L (136-145) 10/08/19 05:40 Potassium 3.9 mmol/L (3.5-5.1) 10/08/19 05:40 Chloride 102 mmol/L (98-107) 10/08/19 05:40 Carbon Dioxide 29 mmol/L (21-32) 10/08/19 05:40 Anion Gap 7 MMOL/L (8-16) L 10/08/19 05:40 BUN 27.8 mg/dL (7-18) H 10/08/19 05:40 Creatinine 0.9 mg/dL (0.55-1.3) 10/08/19 05:40 Random Glucose 138 mg/dL (74-106) H 10/08/19 05:40 Calcium 8.8 mg/dL (8.5-10.1) 10/08/19 05:40 Total Bilirubin 0.3 mg/dL (0.2-1) 10/06/19 20:20 AST 17 U/L (15-37) 10/06/19 20:20 ALT 25 U/L (13-61) 10/06/19 20:20 Alkaline Phosphatase 85 U/L (45-117) 10/06/19 20:20 Total Protein 7.8 g/dl (6.4-8.2) 10/06/19 20:20 Albumin 3.1 g/dl (3.4-5.0) L 10/06/19 20:20 CARDIAC ENZYMES Creatine Kinase 216 U/L (26-192) H 10/06/19 20:20 Troponin I < 0.02 ng/ml (0.00-0.05) 10/06/19 20:20 Current Medications Generic Name Dose Route Start Last Admin Trade Name Freq PRN Reason Stop Dose Admin Albuterol/Ipratropium 1 amp 10/07/19 09:01 10/07/19 09:52 Duoneb - NEB 1 amp Q4H PRN Administration SHORTNESS OF BREATH Amlodipine Besylate 5 mg 10/08/19 10:00 10/08/19 09:36 Norvasc - PO 5 mg DAILY EDISON Administration Atorvastatin Calcium 10 mg 10/07/19 22:00 10/07/19 21:52 Lipitor - PO 10 mg HS EDISON Administration Buspirone HCl 10 mg 10/07/19 22:00 10/08/19 09:36 Buspar - PO 10 mg BID EDISON Administration Clopidogrel Bisulfate 75 mg 10/07/19 14:45 10/08/19 09:36 Plavix - PO 75 mg DAILY EDISON Administration Furosemide 40 mg 10/08/19 06:00 10/08/19 14:18 Lasix Injection - IVPUSH 40 mg BID@0600,1400 EDISON Administration Heparin Sodium (Porcine) 5,000 unit 10/07/19 01:30 10/08/19 14:18 Heparin - SQ 5,000 unit TID EDISON Administration Insulin Aspart 1 vial 10/07/19 07:00 10/08/19 18:17 Novolog Vial Sliding Scale - SQ 2 unit ACHS EDISON Administration Protocol Levothyroxine Sodium 25 mcg 10/07/19 13:30 10/08/19 06:57 Synthroid - PO 25 mcg 0700 EDISON Administration Losartan Potassium 100 mg 10/08/19 10:00 10/08/19 09:36 Cozaar - PO 100 mg DAILY DEISON Administration Quetiapine Fumarate 25 mg 10/07/19 22:00 10/07/19 21:52 Seroquel - PO 25 mg HS EDISON Administration Home Medications Medication Instructions Recorded Aspirin [Aspirin EC] 81 mg PO DAILY 08/17/17 Donepezil HCl [Aricept -] 5 mg PO DAILY 08/17/17 Buspirone HCl [Buspar -] 10 mg PO BID #60 tablet 09/11/17 metFORMIN HCL [Metformin HCl] 500 mg PO BID #0 tab 09/11/17 Clopidogrel Bisulfate [Plavix] 75 mg PO DAILY 05/27/19 Insulin Degludec [Tresiba] 40 unit SQ DAILY 05/27/19 Quetiapine Fumarate [Seroquel -] 25 mg PO HS 05/27/19 Trazodone HCl 150 mg PO DAILY 05/27/19 Losartan Potassium 100 mg PO DAILY 05/28/19 Amlodipine Besylate [Norvasc -] 10 mg PO DAILY #30 tablet 05/30/19 Metoprolol Tartrate [Lopressor -] 25 mg PO BID #60 tablet 05/30/19 Albuterol Sulfate Inhaler - 1 - 2 inh PO QID 10/06/19 [Ventolin Hfa Inhaler -] Echo: ejf 55-60% otherwise Nl echo CXR cardiomegaly, with new congestive changes with possible superimposed infiltrates with bl effusions. EKG: sinus tach, rate of 105, Qtc 491, non specific T-wave changes ECho 10/07--> RVSP elevated 30-40mmhg, mild AR, left atrium moderately dilated. ASSESSMENT AND PLAN: Patient is an 84yo female with PMHx of HTN, HLD, CVA with no residual deficits , IDDM, asthma, depression, anxiety, insomnia, and RIGHT foot ulcer c/o increasing SOB, orthopnea, and PND. CXR with cardiomegally and EKG showing LVH. #Acute diastolic CHF: BNP over 2k, on Lasix 40mg IV BId continue , restrict fluid, salt restriction, i/o's , repeat echo as above, daily weights. cardio consult # HTN: cont. home regimen # DM: ISS, Diabetic diet # RIGHT great toe ulcer: Control DM, Consult wound care # Acute hyponatremia: Improved DVT prophylaxis: Heparin SQ
[2019-10-08] MEDS: QUEtiapine FUMARATE 25 MG TABLET (FP) PO SCH (21:33)
[2019-10-08] MEDS: ATORVASTATIN CA 10 MG TABLET (FP) PO SCH (21:33)
[2019-10-09] MEDS: FUROSEMIDE 40 MG/4 ML INJECTABLE VIAL IVPUSH SCH ×2 (06:26→14:22)
[2019-10-09] MEDS: LEVOTHYROXINE NA 25 MCG TABLET (FP) PO SCH (06:26)
[2019-10-09] MEDS: HEPARIN NA (PORCINE) 5,000 UNITS/ML 1ML VIAL SQ SCH ×3 (06:26→21:59)
[2019-10-09] MEDS: INSULIN SLIDING SCALE (NOVOLOG) 1 VIAL SQ SCH ×4 (06:34→21:59)
[2019-10-09 07:43] LABS: HEMATOCRIT 30.4 % (32.4-45.2); MCH 26.3 pg (25.7-33.7); MCHC 32.9 g/dl (32.0-36.0); MEAN PLT VOLUME 7.8 fl (7.5-11.1); PLATELET COUNT 285 K/MM3 (134-434); RDW 16.6 % (11.6-15.6); WHITE BLOOD COUNT 6.6 K/mm3 (4.0-10.0)
[2019-10-09 08:01] LABS: BLOOD UREA NITROGEN 32.8 mg/dL (7-18); CALCIUM 8.8 mg/dL (8.5-10.1); MAGNESIUM 2.2 mg/dL (1.8-2.4); PHOSPHOROUS 4.1 mg/dL (2.5-4.9); POTASSIUM 3.9 mmol/L (3.5-5.1)
[2019-10-09] MEDS: CLOPIDOGREL BISULFATE 75 MG TABLET (FP) PO SCH (09:21)
[2019-10-09] MEDS: busPIRone HCL 10 MG TABLET (FP) PO SCH ×2 (09:21→21:59)
[2019-10-09] MEDS: LOSARTAN POTASSIUM 50 MG TABLET (FP) PO SCH (09:21)
[2019-10-09] MEDS: amLODIPine BESYLATE 5 MG TABLET (FP) PO SCH (09:21)
--- NOTE | 2019-10-09 12:01 | PN ---
Progress Note (short form) - Note Progress Note: Vital Signs Patient is feeling better with no acute distress, no fever or chills. Daughter at bedside. Temperature 98.0 F 10/09/19 09:20 Pulse Rate 85 10/09/19 09:20 Respiratory Rate 18 10/09/19 09:20 Blood Pressure 134/65 10/09/19 09:20 O2 Sat by Pulse Oximetry (%) 88 L 10/08/19 21:00 GENERAL: The patient is awake, alert, and fully oriented, in no acute distress. HEAD: Normal with no signs of trauma. EYES: PERRL, extraocular movements intact, sclera anicteric, conjunctiva clear. ENT: Ears normal, oropharynx clear without exudates, moist mucous membranes. NECK: Trachea midline, full range of motion, supple. LUNGS: Breath sounds equal, clear to auscultation bilaterally, no wheezes, no crackles, no accessory muscle use. HEART: Regular rate and rhythm, MAURY 2/6 ,no rub or gallop. ABDOMEN: Soft, nontender, nondistended, normoactive bowel sounds, no guarding, no rebound, no hepatosplenomegaly, no masses. EXTREMITIES: 2+ pulses, warm, well-perfused, no edema. NEUROLOGICAL: Cranial nerves II through XII grossly intact. Normal speech, gait not observed. PSYCH: Normal mood, normal affect. SKIN: Warm, dry, normal turgor, no rashes or lesions noted CBCD WBC 6.6 K/mm3 (4.0-10.0) 10/09/19 06:35 RBC 3.80 M/mm3 (3.60-5.2) 10/09/19 06:35 Hgb 10.0 GM/dL (10.7-15.3) L 10/09/19 06:35 Hct 30.4 % (32.4-45.2) L 10/09/19 06:35 MCV 80.0 fl (80-96) 10/09/19 06:35 MCHC 32.9 g/dl (32.0-36.0) 10/09/19 06:35 RDW 16.6 % (11.6-15.6) H 10/09/19 06:35 Plt Count 285 K/MM3 (134-434) 10/09/19 06:35 MPV 7.8 fl (7.5-11.1) 10/09/19 06:35 CMP Sodium 136 mmol/L (136-145) 10/09/19 06:35 Potassium 3.9 mmol/L (3.5-5.1) 10/09/19 06:35 Chloride 103 mmol/L (98-107) 10/09/19 06:35 Carbon Dioxide 30 mmol/L (21-32) 10/09/19 06:35 Anion Gap 4 MMOL/L (8-16) L 10/09/19 06:35 BUN 32.8 mg/dL (7-18) H 10/09/19 06:35 Creatinine 1.0 mg/dL (0.55-1.3) 10/09/19 06:35 Random Glucose 193 mg/dL (74-106) H 10/09/19 06:35 Calcium 8.8 mg/dL (8.5-10.1) 10/09/19 06:35 Total Bilirubin 0.3 mg/dL (0.2-1) 10/06/19 20:20 AST 17 U/L (15-37) 10/06/19 20:20 ALT 25 U/L (13-61) 10/06/19 20:20 Alkaline Phosphatase 85 U/L (45-117) 10/06/19 20:20 Total Protein 7.8 g/dl (6.4-8.2) 10/06/19 20:20 Albumin 3.1 g/dl (3.4-5.0) L 10/06/19 20:20 CARDIAC ENZYMES Creatine Kinase 216 U/L (26-192) H 10/06/19 20:20 Troponin I < 0.02 ng/ml (0.00-0.05) 10/06/19 20:20 Current Medications Generic Name Dose Route Start Last Admin Trade Name Freq PRN Reason Stop Dose Admin Albuterol/Ipratropium 1 amp 10/07/19 09:01 10/07/19 09:52 Duoneb - NEB 1 amp Q4H PRN Administration SHORTNESS OF BREATH Amlodipine Besylate 5 mg 10/08/19 10:00 10/09/19 09:21 Norvasc - PO 5 mg DAILY EDISON Administration Atorvastatin Calcium 10 mg 10/07/19 22:00 10/08/19 21:33 Lipitor - PO 10 mg HS EDISON Administration Buspirone HCl 10 mg 10/07/19 22:00 10/09/19 09:21 Buspar - PO 10 mg BID EDISON Administration Clopidogrel Bisulfate 75 mg 10/07/19 14:45 10/09/19 09:21 Plavix - PO 75 mg DAILY EDISON Administration Furosemide 40 mg 10/08/19 06:00 10/09/19 06:26 Lasix Injection - IVPUSH 40 mg BID@0600,1400 EDISON Administration Heparin Sodium (Porcine) 5,000 unit 10/07/19 01:30 10/09/19 06:26 Heparin - SQ 5,000 unit TID EDISON Administration Insulin Aspart 1 vial 10/07/19 07:00 10/09/19 11:40 Novolog Vial Sliding Scale - SQ 4 unit ACHS EDISON Administration Protocol Levothyroxine Sodium 25 mcg 10/07/19 13:30 10/09/19 06:26 Synthroid - PO 25 mcg 0700 EDISON Administration Losartan Potassium 100 mg 10/08/19 10:00 10/09/19 09:21 Cozaar - PO 100 mg DAILY EDISON Administration Quetiapine Fumarate 25 mg 10/07/19 22:00 10/08/19 21:33 Seroquel - PO 25 mg HS EDISON Administration Home Medications Medication Instructions Recorded Aspirin [Aspirin EC] 81 mg PO DAILY 08/17/17 Donepezil HCl [Aricept -] 5 mg PO DAILY 08/17/17 Buspirone HCl [Buspar -] 10 mg PO BID #60 tablet 09/11/17 metFORMIN HCL [Metformin HCl] 500 mg PO BID #0 tab 09/11/17 Clopidogrel Bisulfate [Plavix] 75 mg PO DAILY 05/27/19 Insulin Degludec [Tresiba] 40 unit SQ DAILY 05/27/19 Quetiapine Fumarate [Seroquel -] 25 mg PO HS 05/27/19 Trazodone HCl 150 mg PO DAILY 05/27/19 Losartan Potassium 100 mg PO DAILY 05/28/19 Amlodipine Besylate [Norvasc -] 10 mg PO DAILY #30 tablet 05/30/19 Metoprolol Tartrate [Lopressor -] 25 mg PO BID #60 tablet 05/30/19 Albuterol Sulfate Inhaler - 1 - 2 inh PO QID 10/06/19 [Ventolin Hfa Inhaler -] Echo: ejf 55-60% otherwise Nl echo CXR cardiomegaly, with new congestive changes with possible superimposed infiltrates with bl effusions. EKG: sinus tach, rate of 105, Qtc 491, non specific T-wave changes ASSESSMENT AND PLAN: Patient is an 84yo female with PMHx of HTN, HLD, CVA with no residual deficits , IDDM, asthma, depression, anxiety, insomnia, and RIGHT foot ulcer c/o increasing SOB, orthopnea, and PND. CXR with cardiomegally and EKG showing LVH. #Acute diastolic CHF: BNP over 2k, on Lasix 40mg IV Bid, will switch to po lasix daily, restrict fluid, salt restriction, i/o's , echo ordered, a year ago as above, daily weights. cardio consult appreciated # HTN: cont. home regimen # DM: ISS, Diabetic diet # RIGHT great toe ulcer: Control DM, follow up with wound care # Acute hyponatremia: Improved DVT prophylaxis: Heparin SQ discharge patient in am Visit type - Emergency Visit Emergency Visit: Yes ED Registration Date: 10/06/19 Care time: The patient presented to the Emergency Department on the above date and was hospitalized for further evaluation of their emergent condition. - New Patient This patient is new to me today: No - Critical Care Critical Care patient: No - Discharge Referral Referred to [facility] No
--- NOTE | 2019-10-09 13:04 | PN ---
Progress Note, Physician Chief Complaint: Feels better No chest pain or sob Lying flat Sinus with pac's on tele History of Present Illness: 84 year old woman pmh HTN, DMII, HLD, CVA, Asthma, chronic R foot ulcer, admitted with progressively worsening sob/nelson, cough. treated for presumed asthma exacerbation as outpatient but did not improve thus came to the er. on admission found to have evidence of pulm vascular congestion. started on lasix pt seen and examined today in nad. feeling better since admission. sob improving. denies chest pain, palpitations. no change in chronic RLE edema. +pnd/orthopnea - Current Medication List Current Medications: Active Medications Albuterol/Ipratropium (Duoneb -) 1 amp NEB Q4H PRN PRN Reason: SHORTNESS OF BREATH Last Admin: 10/07/19 09:52 Dose: 1 amp Amlodipine Besylate (Norvasc -) 5 mg PO DAILY [facility] Last Admin: 10/09/19 09:21 Dose: 5 mg Atorvastatin Calcium (Lipitor -) 10 mg PO HS [facility] Last Admin: 10/08/19 21:33 Dose: 10 mg Buspirone HCl (Buspar -) 10 mg PO BID [facility] Last Admin: 10/09/19 09:21 Dose: 10 mg Clopidogrel Bisulfate (Plavix -) 75 mg PO DAILY [facility] Last Admin: 10/09/19 09:21 Dose: 75 mg Furosemide (Lasix Injection -) 40 mg IVPUSH BID@0600,1400 [facility] Last Admin: 10/09/19 06:26 Dose: 40 mg Heparin Sodium (Porcine) (Heparin -) 5,000 unit SQ TID [facility] Last Admin: 10/09/19 06:26 Dose: 5,000 unit Insulin Aspart (Novolog Vial Sliding Scale -) 1 vial SQ ACHS [facility]; Protocol Last Admin: 10/09/19 11:40 Dose: 4 unit Levothyroxine Sodium (Synthroid -) 25 mcg PO 0700 [facility] Last Admin: 10/09/19 06:26 Dose: 25 mcg Losartan Potassium (Cozaar -) 100 mg PO DAILY [facility] Last Admin: 10/09/19 09:21 Dose: 100 mg Quetiapine Fumarate (Seroquel -) 25 mg PO HS [facility] Last Admin: 10/08/19 21:33 Dose: 25 mg - Objective Vital Signs: Vital Signs Temperature 98.0 F 10/09/19 09:20 Pulse Rate 85 10/09/19 09:20 Respiratory Rate 18 10/09/19 09:20 Blood Pressure 134/65 10/09/19 09:20 O2 Sat by Pulse Oximetry (%) 97 10/09/19 09:20 Constitutional: Yes: No Distress Neck: Yes: Supple Cardiovascular: Yes: Regular Rate and Rhythm, S1, S2. No: JVD Respiratory: Yes: CTA Bilaterally Gastrointestinal: Yes: Soft Edema: No Labs: CBC, BMP 10/09/19 06:35 10/09/19 06:35 INR, PTT INR 1.10 (0.83-1.09) H 10/06/19 20:20 Assessment/Plan 84 year old woman pmh HTN, DMII, HLD, CVA, Asthma, chronic R foot ulcer, admitted with progressively worsening sob/nelson, cough. treated for presumed asthma exacerbation as outpatient but did not improve thus came to the er. on admission found to have evidence of pulm vascular congestion. started on lasix pt seen and examined today in nad. feeling better since admission. sob improving. denies chest pain, palpitations. no change in chronic RLE edema. +pnd/orthopnea SOB- -likely at least partially secondary to acute on likely chronic diastolic CHF -uncertain precipitant -no signs of ACS -cardiac enzymes wnl -no ischemia on ECG -improving with Lasix IV. Would change to PO. Appears was not on diuretic at home so would give 40mg PO daily of furosemide. -Echo showed normal LV/RV function, only mild valvular abnl -monitor strict I/Os, daily weights, bun/creat, electrolytes and replete as needed -of note pt was recently found to be hypothyroid and started synthroid recently , unknown if playing a role in her symptoms -HTN control, BP variable, for the most part adequately controlled Will sign off at this time. Outpatient follow up with Dr. Aguirre [phone] Will sign off
--- NOTE | 2019-10-09 13:34 | PN ---
Progress Note (short form) - Note Progress Note: Fuv right foot +resolved wound right foot, improved edema, -cellulitis resolved wound improved edema will follow till dc. rest as per team. discussed with daughter need for bunionectomy so wound will not re-open.
[2019-10-09] MEDS: ATORVASTATIN CA 10 MG TABLET (FP) PO SCH (21:59)
[2019-10-09] MEDS: QUEtiapine FUMARATE 25 MG TABLET (FP) PO SCH (21:59)
[2019-10-10] MEDS: LEVOTHYROXINE NA 25 MCG TABLET (FP) PO SCH (06:36)
[2019-10-10] MEDS: INSULIN SLIDING SCALE (NOVOLOG) 1 VIAL SQ SCH ×2 (06:37→11:31)
[2019-10-10] MEDS: HEPARIN NA (PORCINE) 5,000 UNITS/ML 1ML VIAL SQ SCH ×2 (06:37→13:57)
[2019-10-10 08:52] VITALS: PULSE 81; TEMP 98.1
[2019-10-10] MEDS: LOSARTAN POTASSIUM 50 MG TABLET (FP) PO SCH (09:53)
[2019-10-10] MEDS: busPIRone HCL 10 MG TABLET (FP) PO SCH (09:53)
[2019-10-10] MEDS: amLODIPine BESYLATE 5 MG TABLET (FP) PO SCH (09:53)
[2019-10-10] MEDS: CLOPIDOGREL BISULFATE 75 MG TABLET (FP) PO SCH (09:53)
[2019-10-10] MEDS ORDERED: FUROSEMIDE 40 MG TABLET (FP) PO SCH (10:00)
--- NOTE | 2019-10-10 12:48 | PN ---
Teaching Attending Note Name of Resident: Angela Patel ATTENDING PHYSICIAN STATEMENT I saw and evaluated the patient. I reviewed the resident's note and discussed the case with the resident. I agree with the resident's findings and plan as documented. SUBJECTIVE: Patient is feeling better with no acute distress. Family at bedside OBJECTIVE: Vital Signs Temperature 98.1 F 10/10/19 08:51 Pulse Rate 81 10/10/19 08:51 Respiratory Rate 18 10/10/19 08:51 Blood Pressure 143/78 10/10/19 08:51 O2 Sat by Pulse Oximetry (%) 97 10/10/19 08:49 GENERAL: The patient is awake, alert, and fully oriented, in no acute distress. HEAD: Normal with no signs of trauma. EYES: PERRL, extraocular movements intact, sclera anicteric, conjunctiva clear. ENT: Ears normal, oropharynx clear without exudates, moist mucous membranes. NECK: Trachea midline, full range of motion, supple. LUNGS: Breath sounds equal, clear to auscultation bilaterally, no wheezes, no crackles, no accessory muscle use. HEART: Regular rate and rhythm, MAURY 2/6 ,no rub or gallop. ABDOMEN: Soft, NT,ND, normoactive bowel sounds, no guarding, no rebound, no hepatosplenomegaly, no masses. EXTREMITIES: 2+ pulses, warm, well-perfused, no edema. NEUROLOGICAL: Cranial nerves II through XII grossly intact. Normal speech, gait is stable . PSYCH: Normal mood, normal affect. SKIN: Warm, dry, normal turgor, no rashes or lesions noted CBCD WBC 6.6 K/mm3 (4.0-10.0) 10/09/19 06:35 RBC 3.80 M/mm3 (3.60-5.2) 10/09/19 06:35 Hgb 10.0 GM/dL (10.7-15.3) L 10/09/19 06:35 Hct 30.4 % (32.4-45.2) L 10/09/19 06:35 MCV 80.0 fl (80-96) 10/09/19 06:35 MCHC 32.9 g/dl (32.0-36.0) 10/09/19 06:35 RDW 16.6 % (11.6-15.6) H 10/09/19 06:35 Plt Count 285 K/MM3 (134-434) 10/09/19 06:35 MPV 7.8 fl (7.5-11.1) 10/09/19 06:35 CMP Sodium 136 mmol/L (136-145) 10/09/19 06:35 Potassium 3.9 mmol/L (3.5-5.1) 10/09/19 06:35 Chloride 103 mmol/L (98-107) 10/09/19 06:35 Carbon Dioxide 30 mmol/L (21-32) 10/09/19 06:35 Anion Gap 4 MMOL/L (8-16) L 10/09/19 06:35 BUN 32.8 mg/dL (7-18) H 10/09/19 06:35 Creatinine 1.0 mg/dL (0.55-1.3) 10/09/19 06:35 Random Glucose 193 mg/dL (74-106) H 10/09/19 06:35 Calcium 8.8 mg/dL (8.5-10.1) 10/09/19 06:35 Total Bilirubin 0.3 mg/dL (0.2-1) 10/06/19 20:20 AST 17 U/L (15-37) 10/06/19 20:20 ALT 25 U/L (13-61) 10/06/19 20:20 Alkaline Phosphatase 85 U/L (45-117) 10/06/19 20:20 Total Protein 7.8 g/dl (6.4-8.2) 10/06/19 20:20 Albumin 3.1 g/dl (3.4-5.0) L 10/06/19 20:20 CARDIAC ENZYMES Creatine Kinase 216 U/L (26-192) H 10/06/19 20:20 Troponin I < 0.02 ng/ml (0.00-0.05) 10/06/19 20:20 Current Medications Generic Name Dose Route Start Last Admin Trade Name Freq PRN Reason Stop Dose Admin Albuterol/Ipratropium 1 amp 10/07/19 09:01 10/07/19 09:52 Duoneb - NEB 1 amp Q4H PRN Administration SHORTNESS OF BREATH Amlodipine Besylate 5 mg 10/08/19 10:00 10/10/19 09:53 Norvasc - PO 5 mg DAILY EDISON Administration Atorvastatin Calcium 10 mg 10/07/19 22:00 10/09/19 21:59 Lipitor - PO 10 mg HS EDISON Administration Buspirone HCl 10 mg 10/07/19 22:00 10/10/19 09:53 Buspar - PO 10 mg BID EDISON Administration Clopidogrel Bisulfate 75 mg 10/07/19 14:45 10/10/19 09:53 Plavix - PO 75 mg DAILY EDISON Administration Furosemide 40 mg 10/10/19 10:00 10/10/19 09:53 Lasix - PO 40 mg DAILY EDISON Administration Heparin Sodium (Porcine) 5,000 unit 10/07/19 01:30 10/10/19 06:37 Heparin - SQ 5,000 unit TID EDISON Administration Insulin Aspart 1 vial 10/07/19 07:00 10/10/19 11:31 Novolog Vial Sliding Scale - SQ 4 unit ACHS EDISON Administration Protocol Levothyroxine Sodium 25 mcg 10/07/19 13:30 10/10/19 06:36 Synthroid - PO 25 mcg 0700 EDISON Administration Losartan Potassium 100 mg 10/08/19 10:00 10/10/19 09:53 Cozaar - PO 100 mg DAILY EDISON Administration Quetiapine Fumarate 25 mg 10/07/19 22:00 10/09/19 21:59 Seroquel - PO 25 mg HS EDISON Administration Home Medications Medication Instructions Recorded Donepezil HCl [Aricept -] 5 mg PO DAILY 08/17/17 Buspirone HCl [Buspar -] 10 mg PO BID #60 tablet 09/11/17 metFORMIN HCL [Metformin HCl] 500 mg PO BID #0 tab 09/11/17 Insulin Degludec [Tresiba] 24 unit SQ DAILY 05/27/19 Quetiapine Fumarate [Seroquel -] 25 mg PO HS 05/27/19 Trazodone HCl 150 mg PO DAILY 05/27/19 Losartan Potassium 100 mg PO DAILY 05/28/19 Albuterol Sulfate Inhaler - 1 - 2 inh PO QID 10/06/19 [Ventolin HFA Inhaler -] Amlodipine Besylate [Norvasc -] 5 mg PO DAILY 10/07/19 Atorvastatin Ca [Lipitor] 10 mg PO DAILY 10/07/19 Clopidogrel Bisulfate [Clopidogrel] 75 mg PO DAILY 10/07/19 Ergocalciferol (Vitamin D2) 50,000 unit PO WEEKLY 10/07/19 [Vitamin D2] Fluticasone Propionate [Flovent 2 puff IH DAILY 10/07/19 Hfa] Levothyroxine [Synthroid -] 25 mcg PO DAILY 10/07/19 Furosemide [Lasix -] 40 mg PO DAILY 30 Days #30 tablet 10/10/19 Echo: ejf 55-60% otherwise Nl echo CXR cardiomegaly, with new congestive changes with possible superimposed infiltrates with bl effusions. EKG: sinus tach, rate of 105, Qtc 491, non specific T-wave changes ASSESSMENT AND PLAN: Patient is an 84yo female with PMHx of HTN, HLD, CVA with no residual deficits , IDDM, asthma, depression, anxiety, insomnia, and RIGHT foot ulcer c/o increasing SOB, orthopnea, and PND. CXR with cardiomegaly and EKG showing LVH. #Acute diastolic CHF: s/p IV lasix , will discharge the patient on po lasix 40mg daily , restrict fluid, salt restriction, i/o's . follow up with rail setter, follow up with shear helper. # HTN: cont. home regimen # T2DM: continue home meds. # RIGHT great toe ulcer: Control DM, follow up with wound care # Acute hyponatremia: Improved # Hx of Dementia continue home meds. discharge patient home
[2019-10-10 13:13] VITALS: BP 127/71
--- NOTE | 2019-10-10 18:02 | DS ---
Physical Exam: SUBJECTIVE: Patient seen and examined. She reports shortness of breath is much improved and wheezing is no longer present. She denies chest pain, chills, fever , abdominal pain, nausea, or vomiting. She reports abdominal distention but said she had a regular BM yesterday. OBJECTIVE: Vital Signs Period Temp Pulse Resp BP Sys/Persaud Pulse Ox Last 24 Hr 98.1 F-98.5 F 81-89 18-20 127-180/70-90 97-97 PHYSICAL EXAM GENERAL: The patient is awake, alert, and fully oriented, in no acute distress. HEAD: Normal with no signs of trauma. EYES: PERRL, extraocular movements intact, conjunctiva clear. ENT: Ears normal, nares patent, moist mucous membranes. NECK: Trachea midline, full range of motion, supple. LUNGS: Clear to auscultation, no wheezing, no crackles, no accessory muscle use. HEART: Regular rate and rhythm, no murmur ABDOMEN: Soft, nontender, slightly distended, normoactive bowel sounds EXTREMITIES: Warm, well-perfused, trace LE edema, right 1st toe ulcer NEUROLOGICAL: Cranial nerves II through XII grossly intact. Normal speech, gait not observed. PSYCH: Normal mood, normal affect. SKIN: Warm, dry, normal turgor LABS Laboratory Results - last 24 hr 10/09/19 10/10/19 10/10/19 21:58 06:35 11:02 POC Glucometer [phone] HOSPITAL COURSE: Ms. Pierce is an 84 y/o female with asthma, HTN, HLD, CVA, IDDM, depression, anxiety, insomnia, and right foot ulcer who presents with increasing dyspnea, wheezing, and chest congestion. She was given duo-nebs and supplemental O2. She was found to have an elevated BNP ~2000. EKG showed prolonged QTc, so prolonging drugs were held. Echo showed normal EF, enlarged LA, RV pressure 30- 40, trace TR. CXR showed cardiomegaly with superimposed infiltrates and bilateral effusions. She was started on Lasix 40mg IV BID for possible diastolic CHF, as well as sodium restriction. Pt's symptoms improved and was discharged on 40mg PO and instructed to follow up with PCP and cards. Foot ulcer was healing well. She was seen by podiatry and vascular and instructed she could follow up outpatient. Pt was found to have mild asymptomatic anemia which was stable from previous labs. Her TSH was elevated at 5.6 but pt was recently started on Synthroid. Flu and pneumococcal vaccines were administered. Date of Admission:10/06/19 Date of Discharge: 10/10/19 Minutes to complete discharge: 35 Discharge Summary Problems reviewed: Yes Reason For Visit: ASTHMA Condition: Stable - Instructions Diet, Activity, Other Instructions: YOUR VISIT: You were admitted to the hospital for shortness of breath. You were given medication to take fluid out of your lungs. You are now stable to go home. MEDICATIONS: Continue your home medications as directed. Start taking Lasix 40mg once a day. FOLLOW UP: Dr. Aguirre, cardiology, in the next 2 weeks to check if your new medication is working. Dr. Oliver, primary care, in the next 3-4 weeks to check your thyroid level. Dr. Perla, podiatry, as needed for your foot pain and healing ulcer. OTHER INSTRUCTIONS: 1. Weigh yourself daily. If you notice a 2-3 pound weight gain in 4-5 days, call Dr. Aguirre , if you become short of breath then go thr emergency room 2. Eat a diet low in salt. 3. Call 911 or go to the emergency room if you have chest pain, worsening shortness of breath, or wheezing that does not improve with your inhaler. Referrals: Ginny Van MD [Primary Care Provider] - 1 Week Rickey Aguirre MD [Staff Physician] - 2 Weeks Cherri Perla DPM [Staff Physician] - Disposition: HOME - Home Medications Comprehensive Discharge Medication List: Ambulatory Orders Donepezil HCl [Aricept -] 5 mg PO DAILY 08/17/17 Buspirone HCl [Buspar -] 10 mg PO BID #60 tablet 09/11/17 metFORMIN HCL [Metformin HCl] 500 mg PO BID #0 tab 09/11/17 Insulin Degludec [Tresiba] 24 unit SQ DAILY 05/27/19 Quetiapine Fumarate [Seroquel -] 25 mg PO HS 05/27/19 Trazodone HCl 150 mg PO DAILY 05/27/19 Losartan Potassium 100 mg PO DAILY 05/28/19 Albuterol Sulfate Inhaler - [Ventolin HFA Inhaler -] 1 - 2 inh PO QID 10/06/19 Amlodipine Besylate [Norvasc -] 5 mg PO DAILY 10/07/19 Atorvastatin Ca [Lipitor] 10 mg PO DAILY 10/07/19 Clopidogrel Bisulfate [Clopidogrel] 75 mg PO DAILY 10/07/19 Ergocalciferol (Vitamin D2) [Vitamin D2] 50,000 unit PO WEEKLY 10/07/19 Fluticasone Propionate [Flovent Hfa] 2 puff IH DAILY 10/07/19 Levothyroxine [Synthroid -] 25 mcg PO DAILY 10/07/19 Furosemide [Lasix -] 40 mg PO DAILY #30 tablet 10/10/19 This patient is new to me today: No Emergency Visit: Yes ED Registration Date: 10/06/19 Care time: The patient presented to the Emergency Department on the above date and was hospitalized for further evaluation of their emergent condition. Critical Care patient: No - Discharge Referral Referred to [facility] No ATTENDING PHYSICIAN STATEMENT I saw and evaluated the patient. I reviewed the resident's note and discussed the case with the resident. I agree with the resident's findings and plan as documented. SUBJECTIVE: OBJECTIVE: ASSESSMENT AND PLAN:
== END 2019-10-10 15:14 | disposition home or self-care (01) | DRG 292 ==
LOC: JER 18:27 → JERBED 22:16 → J4S 10-07 14:44
PROVIDERS: ADMIT Internal Medicine; ATTEND Internal Medicine
DX: I11.0 Hypertensive heart disease with heart failure (principal); E87.1 Hypo-osmolality and hyponatremia; J45.901 Unspecified asthma with (acute) exacerbation; I50.33 Acute on chronic diastolic (congestive) heart failure; E78.5 Hyperlipidemia, unspecified; Z79.4 Long term (current) use of insulin; F41.9 Anxiety disorder, unspecified; E03.9 Hypothyroidism, unspecified; E88.09 Other disorders of plasma-protein metabolism, not elsewhere classified; Z86.73 Personal history of transient ischemic attack (TIA), and cerebral infarction without residual deficits; E66.9 Obesity, unspecified; Z68.31 Body mass index [BMI] 31.0-31.9, adult; F32.9 Major depressive disorder, single episode, unspecified; G47.00 Insomnia, unspecified; E11.621 Type 2 diabetes mellitus with foot ulcer; L97.519 Non-pressure chronic ulcer of other part of right foot with unspecified severity; D50.9 Iron deficiency anemia, unspecified; R94.31 Abnormal electrocardiogram [ECG] [EKG]
CPT/HCPCS: 36415; 71045-TC-FY; 73630-TC-RT-FY; 80048; 80053; 80061; 81003; 82550; 82553; 82728; 82962; 83036; 83540; 83550; 83721; 83735; 83880; 84100; 84443; 84484; 85025; 85027; 85610; 85730; 90670; 93005; 93010; 93306-TC; 97116-GP; 97161-GP; 99285-25; G0008; G0009; J1644; Q2036

== ENCOUNTER 2019-11-08 17:06 | Inpatient (IN) | payer OTHER ==
--- NOTE | 2019-11-08 17:27 | PDOC ---
Rapid Medical Evaluation Time Seen by Provider: 11/08/19 17:26 Medical Evaluation: Allergies Allergy/AdvReac Type Severity Reaction Status Date / Time shellfish derived Allergy Verified 10/06/19 18:34 11/08/19 17:26 I performed a brief in-person evaluation of this patient. 84-year-old female with HTN, HLD, CVA with no residual deficits, asthma, depression, anxiety, insomnia, IDDM, and chronic right food wound under care of clam treader presenting with worsening right foot pain, inability to bear weight. No fevers. Pertinent physical exam findings: Right foot edematous, mild erythema and warmth, ulceration at medial aspect, scant oozing Temp 99.3 orally I have ordered the following: Labs, cultures Foot xray Patient to proceed to the Main ED for further evaluation. Discharge Disposition - Diagnosis Foot ulcer - Referrals - Patient Instructions - Post Discharge Activity
--- NOTE | 2019-11-08 18:04 | PDOC ---
History of Present Illness - General Chief Complaint: Wound Stated Complaint: RIGHT FOOT SWELLING Time Seen by Provider: 11/08/19 17:26 Past History - Past Medical History Allergies/Adverse Reactions: Allergies Allergy/AdvReac Type Severity Reaction Status Date / Time shellfish derived Allergy Verified 11/08/19 17:27 Home Medications: Ambulatory Orders Donepezil HCl [Aricept -] 5 mg PO DAILY 08/17/17 Buspirone HCl [Buspar -] 10 mg PO BID #60 tablet 09/11/17 metFORMIN HCL [Metformin HCl] 500 mg PO BID #0 tab 09/11/17 Insulin Degludec [Tresiba] 24 unit SQ DAILY 05/27/19 Quetiapine Fumarate [Seroquel -] 25 mg PO HS 05/27/19 Trazodone HCl 150 mg PO DAILY 05/27/19 Losartan Potassium 100 mg PO DAILY 05/28/19 Albuterol Sulfate Inhaler - [Ventolin HFA Inhaler -] 1 - 2 inh PO QID 10/06/19 Amlodipine Besylate [Norvasc -] 5 mg PO DAILY 10/07/19 Atorvastatin Ca [Lipitor] 10 mg PO DAILY 10/07/19 Clopidogrel Bisulfate [Clopidogrel] 75 mg PO DAILY 10/07/19 Ergocalciferol (Vitamin D2) [Vitamin D2] 50,000 unit PO WEEKLY 10/07/19 Fluticasone Propionate [Flovent Hfa] 2 puff IH DAILY 10/07/19 Levothyroxine [Synthroid -] 25 mcg PO DAILY 10/07/19 Furosemide [Lasix -] 40 mg PO DAILY #30 tablet 10/10/19 Anemia: No Asthma: Yes Cancer: No Cardiac Disorders: No CVA: Yes (Y; TIA) COPD: No CHF: No Dementia: No Diabetes: No GI Disorders: No Disorders: No HTN: Yes Hypercholesterolemia: Yes Liver Disease: No Psychiatric Problems: Yes (anxiety) Seizures: No Thyroid Disease: No - Surgical History Abdominal Surgery: No Appendectomy: No Cardiac Surgery: No Cholecystectomy: Yes Lung Surgery: No Neurologic Surgery: No Orthopedic Surgery: No - Immunization History Immunization Up to Date: Yes - Psycho Social/Smoking Cessation Hx Smoking History: Never smoked Have you smoked in the past 12 months: No Hx Alcohol Use: No Drug/Substance Use Hx: No Substance Use Type: None Hx Substance Use Treatment: No *Physical Exam - Vital Signs Last Vital Signs Temp Pulse Resp BP Pulse Ox 99.3 F 87 16 156/78 96 11/08/19 17:28 11/08/19 17:28 11/08/19 17:28 11/08/19 17:28 11/08/19 17:28 Discharge - Discharge Information Clinical Impression/Diagnosis: Foot ulcer - Follow up/Referral Referrals: Ginny Van MD [Primary Care Provider] - - Patient Discharge Instructions - Post Discharge Activity
--- NOTE | 2019-11-08 18:35 | PDOC ---
Documentation entered by Jamie Marquez SCRIBE, acting as scribe for Claudine Daily MD. Claudine Daily MD: This documentation has been prepared by the chelaibeJimmy Daniel, SCRIBE, under my direction and personally reviewed by me in its entirety. I confirm that the documentation accurately reflects all work, treatment, procedures, and medical decision making performed by me. Attending Attestation - Resident Resident Name: Ezequiel Daily - ED Attending Attestation I have performed the following: I have examined & evaluated the patient, The case was reviewed & discussed with the resident, I agree w/resident's findings & plan, Exceptions are as noted - HPI HPI: 11/08/19 18:34 84-year-old female presents with a swollen right foot and open wound on her big toe . She has a longstanding history of problems with this wound but over the weekend the foot became swollen and tender. HPI she was supposed to have hyperbaric oxygen treatments for this wound however she came down with pneumonia and ended up getting admitted to the hospital and so therefore the hyperbarics treatments were postponed She is followed at wound care clinic by Dr. Olson 11/08/19 18:38 11/08/19 18:39 - Physicial Exam PE: 11/08/19 18:40 84-year-old female presents with open wound on her right big toe with swelling to the foot Head is normocephalic atraumatic Neck supple Lungs no Rales or wheezing CVS regular rate and rhythm S1-S2 Abdomen protuberant Skin warm and dry Extremities the right foot has swelling from her toes to mid stab with a 3 cm ulcer on the right big toe Neuro patient is alert moving her extremities - Medical Decision Making 11/08/19 19:04 This patient is followed by Dr. Perla at wound care and she has a known nonhealed foot ulcer on the bunion of her right big toe. Over the weekend there is been swelling and tenderness in that foot. Past medical history significant for diabetes, chronic kidney insufficiency, hypertension, peripheral neuropathies, GERD, anxiety pt admitted for antibiotics 11/09/19 02:11
[2019-11-08 18:40] LABS: HEMATOCRIT 27.6 % (32.4-45.2); HEMOGLOBIN 8.9 GM/dL (10.7-15.3); LYMPH % 24.4 % (8-40); MCH 25.5 pg (25.7-33.7); MCHC 32.3 g/dl (32.0-36.0); MEAN CELL VOLUME 78.9 fl (80-96); MEAN PLT VOLUME 8.1 fl (7.5-11.1); MONO % 8.5 % (3.8-10.2); NEUT % 65.1 % (42.8-82.8); PLATELET COUNT 316 K/MM3 (134-434); RDW 16.3 % (11.6-15.6); WHITE BLOOD COUNT 8.9 K/mm3 (4.0-10.0)
[2019-11-08] MEDS ORDERED: VANCOMYCIN 1 GM in D5W (PRE-DOCKED) 1,000 MG/250 ML IVPB ONE (19:07)
[2019-11-08 19:09] LABS: ALBUMIN 2.8 g/dl (3.4-5.0); BILIRUBIN,TOTAL 0.3 mg/dL (0.2-1); BLOOD UREA NITROGEN 19.8 mg/dL (7-18); CALCIUM 8.6 mg/dL (8.5-10.1); POTASSIUM 4.4 mmol/L (3.5-5.1); TOT PROT 7.7 g/dl (6.4-8.2)
[2019-11-08] MEDS ORDERED: VANCOMYCIN 1 GRAM (PRE-DOCKED) 1,000 MG/250 ML BAG IVPB ONE (19:32)
[2019-11-08] MEDS ORDERED: PIPERACILLIN/TAZOB 3.375 GM 3.375 GM/50 ML BAG IVPB ONE (19:33)
[2019-11-08] MEDS: PIPERACILLIN/TAZOB 3.375 GM 3.375 GM in DEXTROSE 5%-WATER - 50 ML IVPB SCH (19:35)
--- NOTE | 2019-11-08 20:39 | PDOC ---
History of Present Illness - General Chief Complaint: Wound Stated Complaint: RIGHT FOOT SWELLING Time Seen by Provider: 11/08/19 17:26 History Source: Patient, Family - History of Present Illness Initial Comments: 84 F, pmh of HTN, HLD, CVA, asthma, depression, anxiety, insomnia, IDDM, previous right foot wound admission, presents to the ED c/o right foot wound pain and drainage. As per pt, she woke up with pain and drainage in her right lower extremity which also appeared red and swollen to her. She reports that she has had the right foot wound since february and has been following her ecommerce merchandising manager Dr. Lamas who has been cleaning it and managing it. She has been admitted in the past for diabetic foot ulcer complicated by celullitis. Admits to one episode of blood in the stool last week for which she is supposed to see Dr. Cruz. Denies f/c/n/v/d/sob/chest pain. 11/08/19 20:35 Is this a multiple visit Asthma Patient?: No Severity: mild Associated Symptoms: reports: denies symptoms. denies: chest pain, cough, diaphoresis, fever/chills, headaches, shortness of breath, syncope Past History - Travel Traveled outside of the country in the last 30 days: No Close contact w/someone who was outside of country & ill: No - Past Medical History Allergies/Adverse Reactions: Allergies Allergy/AdvReac Type Severity Reaction Status Date / Time shellfish derived Allergy Verified 11/08/19 17:27 Home Medications: Ambulatory Orders Donepezil HCl [Aricept -] 5 mg PO DAILY 08/17/17 Buspirone HCl [Buspar -] 10 mg PO BID #60 tablet 09/11/17 metFORMIN HCL [Metformin HCl] 500 mg PO BID #0 tab 09/11/17 Insulin Degludec [Tresiba] 24 unit SQ DAILY 05/27/19 Quetiapine Fumarate [Seroquel -] 25 mg PO HS 05/27/19 Trazodone HCl 150 mg PO DAILY 05/27/19 Losartan Potassium 100 mg PO DAILY 05/28/19 Albuterol Sulfate Inhaler - [Ventolin HFA Inhaler -] 1 - 2 inh PO QID 10/06/19 Amlodipine Besylate [Norvasc -] 5 mg PO DAILY 10/07/19 Atorvastatin Ca [Lipitor] 10 mg PO DAILY 10/07/19 Clopidogrel Bisulfate [Clopidogrel] 75 mg PO DAILY 10/07/19 Ergocalciferol (Vitamin D2) [Vitamin D2] 50,000 unit PO WEEKLY 10/07/19 Fluticasone Propionate [Flovent Hfa] 2 puff IH DAILY 10/07/19 Levothyroxine [Synthroid -] 25 mcg PO DAILY 10/07/19 Furosemide [Lasix -] 40 mg PO DAILY #30 tablet 10/10/19 Anemia: No Asthma: Yes Cancer: No Cardiac Disorders: No CVA: Yes (Y; TIA) COPD: No CHF: No Dementia: No Diabetes: No GI Disorders: No Disorders: No HTN: Yes Hypercholesterolemia: Yes Liver Disease: No Psychiatric Problems: Yes (anxiety) Seizures: No Thyroid Disease: No - Surgical History Abdominal Surgery: No Appendectomy: No Cardiac Surgery: No Cholecystectomy: Yes Lung Surgery: No Neurologic Surgery: No Orthopedic Surgery: No - Immunization History Immunization Up to Date: Yes - Psycho Social/Smoking Cessation Hx Smoking History: Never smoked Have you smoked in the past 12 months: No Hx Alcohol Use: No Drug/Substance Use Hx: No Substance Use Type: None Hx Substance Use Treatment: No Review of Systems - Review of Systems Constitutional: Yes: Symptoms Reported, Weight Stable. No: Chills, Diaphoresis , Fever HEENTM: Yes: Symptoms Reported. No: Blurred Vision Respiratory: Yes: Symptoms reported. No: Cough, Orthopnea, Shortness of Breath Cardiac (ROS): Yes: Symptoms Reported. No: Chest Pain ABD/GI: Yes: Symptoms Reported. No: Abdominal Distended, Diarrhea, Nausea, Vomiting, Abdominal cramping : Yes: Symptoms Reported. No: Dysuria Musculoskeletal: Yes: Symptoms Reported Integumentary: Yes: Symptoms Reported Neurological: Yes: Symptoms reported. No: Headache All Other Systems: Reviewed and Negative *Physical Exam - Vital Signs Last Vital Signs Temp Pulse Resp BP Pulse Ox 99.3 F 87 16 156/78 95 11/08/19 17:28 11/08/19 17:28 11/08/19 17:28 11/08/19 17:28 11/08/19 19:46 - Physical Exam General Appearance: Yes: Nourished, Appropriately Dressed HEENT: positive: EOMI, SHELDON, Normal ENT Inspection, Pharynx Normal Neck: positive: Trachea midline, Normal Thyroid, Supple. negative: Lymphadenopathy (R), Lymphadenopathy (L) Respiratory/Chest: positive: Lungs Clear, Normal Breath Sounds, Crackles ( crackle son the Right lung base and apex). negative: Rales, Wheezing Cardiovascular: positive: Regular Rhythm, Regular Rate, S1, S2. negative: Murmur, Gallop/S3, Gallop/S4 Gastrointestinal/Abdominal: positive: Normal Bowel Sounds, Soft. negative: Organomegaly, Hepatomegaly, Spleenomegaly Neurologic: positive: Fully Oriented, Alert, Normal Mood/Affect ED Treatment Course - LABORATORY CBC & Chemistry Diagram: 11/08/19 18:10 11/08/19 18:10 - ADDITIONAL ORDERS Additional order review: Laboratory Results 11/08/19 11/08/19 11/08/19 19:24 18:10 18:10 Sodium 134 L Potassium 4.4 Chloride 97 L Carbon Dioxide 29 Anion Gap 8 BUN 19.8 H Creatinine 1.0 Est GFR (CKD-EPI)AfAm 60.33 Est GFR (CKD-EPI)NonAf 52.06 Random Glucose 211 H Lactic Acid 1.7 Calcium 8.6 Total Bilirubin 0.3 AST 22 ALT 19 Alkaline Phosphatase 83 Total Protein 7.7 Albumin 2.8 L Stool Occult Blood Negative 11/08/19 18:10 RBC 3.50 L MCV 78.9 L MCHC 32.3 RDW 16.3 H MPV 8.1 Neutrophils % 65.1 Lymphocytes % 24.4 D Monocytes % 8.5 Eosinophils % 1.0 D Basophils % 1.0 Medical Decision Making - Medical Decision Making 84 F, pmh of HTN, HLD, CVA, asthma, depression, anxiety, insomnia, IDDM, previous right foot wound admission, presents to the ED c/o right foot wound pain and drainage #Diabetic right foot ulcer complicated by Cellulitis Vanc + Zosyn started CBC and cmp ordered PT/PTT UA UCx, BCx EKG CXR x ray of the right LE 11/08/19 20:41 11/08/19 20:43 11/08/19 20:44 Discharge - Discharge Information Clinical Impression/Diagnosis: Cellulitis Foot ulcer Qualifiers: Laterality: unspecified laterality Non-pressure ulcer stage: unspecified non- pressure ulcer stage Qualified Code(s): L97.509 - Non-pressure chronic ulcer of other part of unspecified foot with unspecified severity Condition: Stable - Admission Yes - Follow up/Referral Referrals: Ginny Van MD [Primary Care Provider] - - Patient Discharge Instructions - Post Discharge Activity
[2019-11-08 20:56] LABS: INR 1.44 (0.83-1.09); PROTHROMBIN TIME (PATIENT) 17.1 SEC (9.7-13.0)
[2019-11-08 20:59] LABS: ACTIVATED PTT 21.3 SECONDS (25.2-36.5)
--- NOTE | 2019-11-08 21:23 | PN ---
Teaching Attending Note Name of Resident: Alpa Solano ATTENDING PHYSICIAN STATEMENT I saw and evaluated the patient. I reviewed the resident's note and discussed the case with the resident. I agree with the resident's findings and plan as documented. SUBJECTIVE: Patient is a 84 year old woman with a PMH of HTN, HLD, CVA, Asthma, Depression, Anxiety, Insomnia, Insulin-treated DM and Right foot wound presents to the ER complaining of a right foot wound pain and drainage. Says she woke up with pain and drainage in her right lower extremity which also appeared red and swollen. She reports that she has had the right foot wound since February and has been following up with her business relations manager Dr. Lamas who has been cleaning it and managing it. She has been admitted in the past for diabetic foot ulcer complicated by celullitis. Admits to one episode of blood in the stool last week for which she is supposed to see Dr. Cruz. Denies fever, chills, nausea, vomiting, diarrhea, SOB, dysuria or chest pain. Denies alcohol, tobacco or illicit drug use. OBJECTIVE: Alert Vital Signs Period Temp Pulse Resp BP Sys/Persaud Pulse Ox Last 24 Hr 99.3 F 87 16 156/78 95-96 HEENT: No Jaundice, eye redness or discharge, PERRLA, EOMI. Normocephalic, atraumatic. External ears are normal and hearing is grossly intact. No nasal discharge. Neck: Supple, nontender. No palpable adenopathy or thyromegaly. No JVD Chest: Good effort. Clear to auscultation and percussion. Heart: Regular. No S3, rub or murmur Abdomen: Not distended, soft, nontender and no HSM. No rebound or guarding. Normal bowel sounds. Ext: Peripheral pulses intact. Wound on right big toe, minimal oozing and surrounded by erythema; right leg edema. Skin: Warm and dry. No petechiae, rash or ecchymosis. Neuro: Alert. Oriented x3. CN 2-12 grossly intact. Sensation grossly intact in all four extremities and DTR are symmetric. Psych: Appropriate mood and affect. Good insight. Current Medications Generic Name Dose Route Start Last Admin Trade Name Freq PRN Reason Stop Dose Admin Piperacillin Sod/Tazobactam 50 mls @ 100 mls/hr 11/08/19 19:15 11/08/19 19:35 Sod 3.375 gm/ Dextrose IVPB 100 mls/hr Q6H EDISON Administration Protocol Home Medications Medication Instructions Recorded Donepezil HCl [Aricept -] 5 mg PO DAILY 08/17/17 Buspirone HCl [Buspar -] 10 mg PO BID #60 tablet 09/11/17 metFORMIN HCL [Metformin HCl] 500 mg PO BID #0 tab 09/11/17 Insulin Degludec [Tresiba] 24 unit SQ DAILY 05/27/19 Quetiapine Fumarate [Seroquel -] 25 mg PO HS 05/27/19 Trazodone HCl 150 mg PO DAILY 05/27/19 Losartan Potassium 100 mg PO DAILY 05/28/19 Albuterol Sulfate Inhaler - 1 - 2 inh PO QID 10/06/19 [Ventolin HFA Inhaler -] Amlodipine Besylate [Norvasc -] 5 mg PO DAILY 10/07/19 Atorvastatin Ca [Lipitor] 10 mg PO DAILY 10/07/19 Clopidogrel Bisulfate [Clopidogrel] 75 mg PO DAILY 10/07/19 Ergocalciferol (Vitamin D2) 50,000 unit PO WEEKLY 10/07/19 [Vitamin D2] Fluticasone Propionate [Flovent 2 puff IH DAILY 10/07/19 Hfa] Levothyroxine [Synthroid -] 25 mcg PO DAILY 10/07/19 Furosemide [Lasix -] 40 mg PO DAILY #30 tablet 10/10/19 Abnormal Lab Results 11/08/19 11/08/19 11/08/19 18:10 18:10 20:00 RBC 3.50 L Hgb 8.9 L Hct 27.6 L MCV 78.9 L MCH 25.5 L RDW 16.3 H PT with INR 17.10 H INR 1.44 H PTT (Actin FS) 21.3 L Sodium 134 L Chloride 97 L BUN 19.8 H Random Glucose 211 H Albumin 2.8 L ASSESSMENT AND PLAN: 1. RLE cellulitis - Sepsis work up done. Patient being treated with IV Vancomycin and Zosyn. Will consult Wound care and Podiatry and get MRI to rule out osteomyelitis. Consult ID. EKG shows NSR with nonspecific T wave abnormalities and prolonged QTc. CXR shows cardiomegaly, pleural effusion, hilar prominence and congestive changes. Will diurese with escalating doses of IV lasix, restrict dietary salt intake and get ECHO and daily standing weight. Will continue comprehensive care for all of patients comorbid conditions. 2. Hypoalbuminemia - Possibly due to combined effects of malnutrition and inflammation associated with comorbid chronic conditions. Will ensure adequate dietary protein intake and also consult threshing department supervisor. 3. DM For now, we will hold the home diabetes drugs and implement sliding scale insulin regimen. Provide comprehensive diabetes care with patient teaching and counseling about the importance of adherence to prescribed diabetes regimen, euglycemia, eye care and foot care. 4. Anemia with low MCV - Cause unclear. Needs GI evaluation - ?colonoscopy. Will do basic anemia work up including serial stool guaiacs, reticulocyte count and iron studies. Would benefit from Procrit therapy once iron replete. 5. Obesity Counseled on the risks associated with obesity. Will provide patient all the necessary assistance, counseling and positive reinforcement to facilitate weight loss. Consult threshing department supervisor. 6. Hypertension - Restart suitable outpatient antihypertensive drugs when clinically appropriate. Revise regimen to ensure [id number] excellent BP control and pet adoption counselor patient on the injurious effects of uncontrolled hypertension. Nonpharmacologic measures to control hypertension like weight loss , salt restriction and exercise discussed. Importance of adherence to treatment regimen and attainment of normotension emphasized. 7. DVT prophylaxis - Lovenox 40 mg SQ q 24 hours. 8. Advance directives - Full code
[2019-11-08] MEDS ORDERED: ACETAMINOPHEN 325 MG TABLET (FP) PO ONE (21:57)
[2019-11-08] MEDS ORDERED: ALBUTEROL SO4 2.5/IPRATROPIUM 0.5 INH SOL 3 ML VIAL.NEB. NEB ONE ×2 (22:35→23:28)
--- NOTE | 2019-11-08 23:13 | HP ---
CHIEF COMPLAINT: PCP: HISTORY OF PRESENT ILLNESS: 84 F, pmh of HTN, HLD, CVA, asthma, depression, anxiety, insomnia, IDDM, chronic R foot wound , presents to the ED c/o right foot wound pain and drainage. pt states that she has had this wound on her R foot since february. over the past week she has had increased pain and redness for 3 days. Today, she noticed purulent drainage from wound and came to ED. pt states that since this morning she has so much pain she feels that she cant bear weight. Pt follows Dr. Lamas for wound care. pt stats that 2 weeks ago she experienced hematochezia, and went to PMD. she has a f/u appointment with Dr. Cruz. pt states that she has not had any recurrent episodes of hematochezia. ER course was notable for: (1) R foot XR (2)CXR: congestive changes (3)empiric vanc/ zosyn Recent Travel: denies PAST MEDICAL HISTORY: HTN, HLD, CVA, asthma, depression, anxiety, insomnia, IDDM,chronic R foot wound PAST SURGICAL HISTORY: Social History: Smoking:denies Alcohol:denies Drugs: denies Allergies shellfish derived Allergy (Verified 11/08/19 17:27) HOME MEDICATIONS: Home Medications Medication Instructions Recorded Donepezil HCl [Aricept -] 5 mg PO DAILY 08/17/17 Buspirone HCl [Buspar -] 10 mg PO BID #60 tablet 09/11/17 metFORMIN HCL [Metformin HCl] 500 mg PO BID #0 tab 09/11/17 Insulin Degludec [Tresiba] 24 unit SQ DAILY 05/27/19 Quetiapine Fumarate [Seroquel -] 25 mg PO HS 05/27/19 Trazodone HCl 150 mg PO DAILY 05/27/19 Losartan Potassium 100 mg PO DAILY 05/28/19 Albuterol Sulfate Inhaler - 1 - 2 inh PO QID 10/06/19 [Ventolin HFA Inhaler -] Amlodipine Besylate [Norvasc -] 5 mg PO DAILY 10/07/19 Atorvastatin Ca [Lipitor] 10 mg PO DAILY 10/07/19 Clopidogrel Bisulfate [Clopidogrel] 75 mg PO DAILY 10/07/19 Ergocalciferol (Vitamin D2) 50,000 unit PO WEEKLY 10/07/19 [Vitamin D2] Fluticasone Propionate [Flovent 2 puff IH DAILY 10/07/19 Hfa] Levothyroxine [Synthroid -] 25 mcg PO DAILY 10/07/19 Furosemide [Lasix -] 40 mg PO DAILY #30 tablet 10/10/19 REVIEW OF SYSTEMS CONSTITUTIONAL: Absent: fever, chills, diaphoresis, generalized weakness, malaise, loss of appetite, weight change HEENT: Absent: rhinorrhea, nasal congestion, throat pain, throat swelling, difficulty swallowing, mouth swelling, ear pain, eye pain, visual changes CARDIOVASCULAR: Absent: chest pain, syncope, palpitations, irregular heart rate, lightheadedness , peripheral edema RESPIRATORY: Absent: cough, shortness of breath, dyspnea with exertion, orthopnea, wheezing, stridor, hemoptysis GASTROINTESTINAL: Absent: abdominal pain, abdominal distension, nausea, vomiting, diarrhea, constipation, melena, hematochezia GENITOURINARY: Absent: dysuria, frequency, urgency, hesitancy, hematuria, flank pain, genital pain MUSCULOSKELETAL: Present: R foot and ankle swelling and pain Absent: myalgia, arthralgia, back pain, neck pain SKIN: Present: R foot erythema Absent: rash, itching, pallor HEMATOLOGIC/IMMUNOLOGIC: Absent: easy bleeding, easy bruising, lymphadenopathy, frequent infections ENDOCRINE: Absent: unexplained weight gain, unexplained weight loss, heat intolerance, cold intolerance NEUROLOGIC: Absent: headache, focal weakness or paresthesias, dizziness, unsteady gait, seizure, mental status changes, bladder or bowel incontinence PHYSICAL EXAMINATION Vital Signs - 24 hr 11/08/19 11/08/19 17:28 19:46 Temperature 99.3 F Pulse Rate 87 Respiratory 16 Rate Blood Pressure 156/78 O2 Sat by Pulse 96 95 Oximetry (%) GENERAL: Awake, alert, and fully oriented, in no acute distress. HEAD: Normal with no signs of trauma. EYES: Pupils equal, round and reactive to light, extraocular movements intact, sclera anicteric, conjunctiva clear. No lid lag. EARS, NOSE, THROAT: oropharynx clear without exudates. Moist mucous membranes. NECK: Normal range of motion, supple without lymphadenopathy, JVD, or masses. LUNGS: Breath sounds equal, scattered crackles b/l. No accessory muscle use. HEART: Regular rate and rhythm, normal S1 and S2 without murmur, rub or gallop. ABDOMEN: Soft, nontender, not distended, normoactive bowel sounds, no guarding, no rebound, no masses. MUSCULOSKELETAL: Normal range of motion at all joints. No bony deformities or tenderness. No CVA tenderness. UPPER EXTREMITIES: 2+ pulses, warm, well-perfused. No cyanosis. No clubbing. No peripheral edema. LOWER EXTREMITIES: 2+ pulses, No calf tenderness. R foot erythema and edema . open wound over bunyion NEUROLOGICAL: Cranial nerves II-XII intact. Normal speech. PSYCHIATRIC: Cooperative. Good eye contact. Appropriate mood and affect. SKIN: Warm, dry, normal turgor, no rashes or lesions noted, normal capillary refill. Laboratory Last Values WBC 8.9 K/mm3 (4.0-10.0) 11/08/19 18:10 RBC 3.50 M/mm3 (3.60-5.2) L 11/08/19 18:10 Hgb 8.9 GM/dL (10.7-15.3) L 11/08/19 18:10 Hct 27.6 % (32.4-45.2) L 11/08/19 18:10 MCV 78.9 fl (80-96) L 11/08/19 18:10 MCH 25.5 pg (25.7-33.7) L 11/08/19 18:10 MCHC 32.3 g/dl (32.0-36.0) 11/08/19 18:10 RDW 16.3 % (11.6-15.6) H 11/08/19 18:10 Plt Count 316 K/MM3 (134-434) 11/08/19 18:10 MPV 8.1 fl (7.5-11.1) 11/08/19 18:10 Absolute Neuts (auto) 5.8 K/mm3 (1.5-8.0) 11/08/19 18:10 Neutrophils % 65.1 % (42.8-82.8) 11/08/19 18:10 Lymphocytes % 24.4 % (8-40) D 11/08/19 18:10 Monocytes % 8.5 % (3.8-10.2) 11/08/19 18:10 Eosinophils % 1.0 % (0-4.5) D 11/08/19 18:10 Basophils % 1.0 % (0-2.0) 11/08/19 18:10 Nucleated RBC % 0 % (0-0) 11/08/19 18:10 PT with INR 17.10 SEC (9.7-13.0) H 11/08/19 20:00 INR 1.44 (0.83-1.09) H 11/08/19 20:00 PTT (Actin FS) 21.3 SECONDS (25.2-36.5) L 11/08/19 20:00 Sodium 134 mmol/L (136-145) L 11/08/19 18:10 Potassium 4.4 mmol/L (3.5-5.1) 11/08/19 18:10 Chloride 97 mmol/L (98-107) L 11/08/19 18:10 Carbon Dioxide 29 mmol/L (21-32) 11/08/19 18:10 Anion Gap 8 MMOL/L (8-16) 11/08/19 18:10 BUN 19.8 mg/dL (7-18) H 11/08/19 18:10 Creatinine 1.0 mg/dL (0.55-1.3) 11/08/19 18:10 Est GFR (CKD-EPI)AfAm 60.33 11/08/19 18:10 Est GFR (CKD-EPI)NonAf 52.06 11/08/19 18:10 Random Glucose 211 mg/dL (74-106) H 11/08/19 18:10 Lactic Acid 1.7 mmol/L (0.4-2.0) 11/08/19 18:10 Uric Acid 4.7 mg/dL (2.6-7.2) 11/08/19 18:10 Calcium 8.6 mg/dL (8.5-10.1) 11/08/19 18:10 Total Bilirubin 0.3 mg/dL (0.2-1) 11/08/19 18:10 AST 22 U/L (15-37) 11/08/19 18:10 ALT 19 U/L (13-61) 11/08/19 18:10 Alkaline Phosphatase 83 U/L (45-117) 11/08/19 18:10 Total Protein 7.7 g/dl (6.4-8.2) 11/08/19 18:10 Albumin 2.8 g/dl (3.4-5.0) L 11/08/19 18:10 Stool Occult Blood Negative (NEGATIVE) 11/08/19 19:24 L LE Doppler: There is no DVT in the left lower extremity. ASSESSMENT/PLAN: 84 F, pmh of HTN, HLD, CVA, asthma, depression, anxiety, insomnia, IDDM, chronic R foot wound , presents with right foot wound pain and drainage. pt is admitted for cellulitis. Cellulitis - pending wound cultures - no leukocytosis, pt afebrile - Foot XR, r/o osteomylitis. pending MRI - empiric vanc/ zosyn in ED -c/w vanc, zosyn -podiatry recs appreciated Acute on Chronic HFpEF -BNP 2562, in 09/2019 - trial of lasix 40 IV - strict I/Os - daily weights - continue cardiac monitoring Microcytic anemia - pending iron studies - GI recs appreciated for possible colonoscopy- possible GI source Asthma - Duonebs -albuterol prn HLD - c/w lipitor DM - ISS ACHS - BGM ACHS - hold oral antiglycemics Hypothyroid - c/w synthroid F/E/N - diabetic/ low sodium diet -monitor lytes Dispo: admit to tele ATTENDING PHYSICIAN STATEMENT I saw and evaluated the patient. I reviewed the resident's note and discussed the case with the resident. I agree with the resident's findings and plan as documented. SUBJECTIVE: OBJECTIVE: ASSESSMENT AND PLAN:
[2019-11-08 23:24] LABS: URIC ACID 4.7 mg/dL (2.6-7.2)
[2019-11-08 23:59] LABS: EPI CELLS 5.1 /HPF (0-5/HPF); HYALINE CASTS 0 /lpf (0-8); URINE APPEARANCE CLEAR; URINE BILIRUBIN NEGATIVE (NEGATIVE); URINE COLOR YELLOW; URINE GLUCOSE (UA) NEGATIVE (NEGATIVE); URINE KETONE NEGATIVE (NEGATIVE); URINE LEUK ESTERASE NEGATIVE (NEGATIVE); URINE NITRITE NEGATIVE (NEGATIVE); URINE PROTEIN 3+ (NEGATIVE); URINE RBC 1 /hpf (0-4); URINE WBC 2 /hpf (0-5)
[2019-11-09] MEDS ORDERED: PIPERACILLIN/TAZOB 3.375 GM 3.375 GM/50 ML BAG IVPB ONE (01:40)
[2019-11-09] MEDS: PIPERACILLIN/TAZOB 3.375 GM 3.375 GM in DEXTROSE 5%-WATER - 50 ML IVPB SCH ×3 (01:47→17:03)
[2019-11-09] MEDS ORDERED: FUROSEMIDE 40 MG/4 ML INJECTABLE VIAL IVPUSH ONE ×2 (01:53→08:54)
[2019-11-09] MEDS ORDERED: PIPERACILLIN/TAZOB 3.375 GM 3.375 GM in DEXTROSE 5%-WATER - 50 ML IVPB SCH ×2 (02:00→15:00)
[2019-11-09] MEDS ORDERED: ALBUTEROL SO4 8 GM HFA INHALER IH PRN (05:56)
[2019-11-09] MEDS: INSULIN SLIDING SCALE (NOVOLOG) 1 VIAL SQ SCH ×4 (06:01→22:15)
[2019-11-09] MEDS: LEVOTHYROXINE NA 25 MCG TABLET (FP) PO SCH (06:06)
[2019-11-09 07:26] LABS: BASO % 0.3 % (0-2.0); EOS % 0.9 % (0-4.5); HEMATOCRIT 26.6 % (32.4-45.2); HEMOGLOBIN 8.6 GM/dL (10.7-15.3); LYMPH % 23.1 % (8-40); MCHC 32.4 g/dl (32.0-36.0); MEAN CELL VOLUME 77.3 fl (80-96); MEAN PLT VOLUME 7.7 fl (7.5-11.1); MONO % 7.6 % (3.8-10.2); NEUT % 68.1 % (42.8-82.8); PLATELET COUNT 311 K/MM3 (134-434); RBC 3.44 M/mm3 (3.60-5.2); RDW 15.6 % (11.6-15.6); WHITE BLOOD COUNT 8.2 K/mm3 (4.0-10.0)
--- NOTE | 2019-11-09 07:55 | CON.GI ---
Consult Consult Specialty:: GI Referred by:: Dr Alpa Solano Reason for Consultation:: Anemia - History of Present Illness History of Present Illness: Patient is an 84 y/o female with past medical history of HTN, HLD, CVA, Asthma, Depression, Anxiety, Insomnia, IDDM, Chronic R foot wound. Consult was placed for anemia. As per H&P patient reported having an episode of hematochezia 2 weeks ago. This morning on exam patient denies having any blood in her stool, melena, or rectal bleeding. On admission labs show Hg 8.9 and stool OB negative. Patient denies nausea, vomiting, abdominal pain, diarrhea, constipation, abnormal weight loss, rectal bleeding or melena. Patient home medication list shows chronic use of Plavix. - History Source History Provided By: Patient Limitations to Obtaining History: No Limitations - Past Medical History [employer]: Yes: Peripheral Neuropathy, Other (cataract) Cardio/Vascular: Yes: HTN Gastrointestinal: Yes: GERD Renal/: Yes: Renal Inusuff ...: No Psych: Yes: Anxiety Endocrine: Yes: Diabetes Mellitus - Past Surgical History Past Surgical History: Yes: Cholecystectomy, - Alcohol/Substance Use Hx Alcohol Use: No History of Substance Use: reports: None - Smoking History Smoking history: Never smoked Have you smoked in the past 12 months: No - Social History Usual Living Arrangement: Alone ADL: Independent Occupation: retired History of Recent Travel: No Home Medications - Allergies Allergies/Adverse Reactions: Allergies Allergy/AdvReac Type Severity Reaction Status Date / Time shellfish derived Allergy Verified 11/08/19 17:27 - Home Medications Home Medications: Ambulatory Orders Donepezil HCl [Aricept -] 5 mg PO DAILY 08/17/17 Buspirone HCl [Buspar -] 10 mg PO BID #60 tablet 09/11/17 metFORMIN HCL [Metformin HCl] 500 mg PO BID #0 tab 09/11/17 Insulin Degludec [Tresiba] 24 unit SQ DAILY 05/27/19 Quetiapine Fumarate [Seroquel -] 25 mg PO HS 05/27/19 Trazodone HCl 150 mg PO DAILY 05/27/19 Losartan Potassium 100 mg PO DAILY 05/28/19 Albuterol Sulfate Inhaler - [Ventolin HFA Inhaler -] 1 - 2 inh PO QID 10/06/19 Amlodipine Besylate [Norvasc -] 5 mg PO DAILY 10/07/19 Atorvastatin Ca [Lipitor] 10 mg PO DAILY 10/07/19 Clopidogrel Bisulfate [Clopidogrel] 75 mg PO DAILY 10/07/19 Ergocalciferol (Vitamin D2) [Vitamin D2] 50,000 unit PO WEEKLY 10/07/19 Fluticasone Propionate [Flovent Hfa] 2 puff IH DAILY 10/07/19 Levothyroxine [Synthroid -] 25 mcg PO DAILY 10/07/19 Furosemide [Lasix -] 40 mg PO DAILY #30 tablet 10/10/19 Review of Systems - Review of Systems Constitutional: reports: No Symptoms Eyes: reports: No Symptoms HENT: reports: No Symptoms Neck: reports: No Symptoms Cardiovascular: reports: No Symptoms Respiratory: reports: No Symptoms Gastrointestinal: reports: No Symptoms Genitourinary: reports: No Symptoms Breasts: reports: No Symptoms Reported Musculoskeletal: reports: No Symptoms Integumentary: reports: No Symptoms Neurological: reports: No Symptoms Endocrine: reports: No Symptoms Hematology/Lymphatic: reports: No Symptoms Psychiatric: reports: No Symptoms Physical Exam-GI Vital Signs: Vital Signs Temperature 98.8 F 11/09/19 06:20 Pulse Rate 93 H 11/09/19 06:20 Respiratory Rate 16 11/09/19 06:20 Blood Pressure 146/74 11/09/19 06:20 O2 Sat by Pulse Oximetry (%) 93 L 11/09/19 05:00 Constitutional: Yes: No Distress, Calm, Obese Eyes: Yes: Conjunctiva Clear HENT: Yes: Atraumatic Cardiovascular: Yes: Regular Rate and Rhythm Respiratory: Yes: Regular, CTA Bilaterally Gastrointestinal Inspection: Yes: WNL. No: Ascites, Distention, Hernia, Scars, Other ...Auscultate: Yes: Normoactive Bowel Sounds. No: Hyperactive Bowel Sounds, Hypoactive Bowel Sounds, No Bowel Sounds, Other ...Palpate: Yes: Soft. No: Firm/Rigid, Guarding, Hepatomegaly, Mass, Pulsatile Mass, Splenomegaly, Tenderness, Tenderness, Epigastium, Tenderness, Rebound, Other ...Percussion: Yes: Tympanitic. No: Dullness, Fluid Wave, Other ...Rectal Exam: Yes: Sphincter Tone Poor. No: Hemorrhoids/External, Hemorrhoids /Internal, Mass Edema: LLE: 2+, RLE: 2+ Neurological: Yes: Alert, Oriented Psychiatric: Yes: Alert, Oriented Labs: CBC, BMP 11/09/19 06:45 INR, PTT INR 1.44 (0.83-1.09) H 11/08/19 20:00 Home Medications Medication Instructions Recorded Donepezil HCl [Aricept -] 5 mg PO DAILY 08/17/17 Buspirone HCl [Buspar -] 10 mg PO BID #60 tablet 09/11/17 metFORMIN HCL [Metformin HCl] 500 mg PO BID #0 tab 09/11/17 Insulin Degludec [Tresiba] 24 unit SQ DAILY 05/27/19 Quetiapine Fumarate [Seroquel -] 25 mg PO HS 05/27/19 Trazodone HCl 150 mg PO DAILY 05/27/19 Losartan Potassium 100 mg PO DAILY 05/28/19 Albuterol Sulfate Inhaler - 1 - 2 inh PO QID 10/06/19 [Ventolin HFA Inhaler -] Amlodipine Besylate [Norvasc -] 5 mg PO DAILY 10/07/19 Atorvastatin Ca [Lipitor] 10 mg PO DAILY 10/07/19 Clopidogrel Bisulfate [Clopidogrel] 75 mg PO DAILY 10/07/19 Ergocalciferol (Vitamin D2) 50,000 unit PO WEEKLY 10/07/19 [Vitamin D2] Fluticasone Propionate [Flovent 2 puff IH DAILY 10/07/19 Hfa] Levothyroxine [Synthroid -] 25 mcg PO DAILY 10/07/19 Furosemide [Lasix -] 40 mg PO DAILY #30 tablet 10/10/19 Problem List - Problems (1) Anemia Assessment/Plan: anemia r/o occult gi bleed secondary to chronic Plavix use, stool guaiac negative,negative rectal examination >transfuse for Hg <8.0 >stool OB neg >poor candidate for EGD and colonoscopy at this time because of CHF the patient was made aware to follow up [facility]GIS Code(s): D64.9 - ANEMIA, UNSPECIFIED
[2019-11-09 07:57] LABS: ALBUMIN 2.8 g/dl (3.4-5.0); BILIRUBIN,TOTAL 0.5 mg/dL (0.2-1); BLOOD UREA NITROGEN 16.7 mg/dL (7-18); CALCIUM 8.8 mg/dL (8.5-10.1); CREATININE 0.9 mg/dL (0.55-1.3); MAGNESIUM 2.4 mg/dL (1.8-2.4); N-TERMINAL BNP 2806.7 pg/ml (5-450); PHOSPHOROUS 3.8 mg/dL (2.5-4.9); TOT PROT 8.1 g/dl (6.4-8.2)
--- NOTE | 2019-11-09 09:29 | CONSULT ---
Consult Consult Specialty:: Podiatry Reason for Consultation:: Painful right foot with cellulitis She noticed drainage a few days ago. - Past Medical History [employer]: Yes: Peripheral Neuropathy, Other (cataract) Cardio/Vascular: Yes: HTN Gastrointestinal: Yes: GERD Renal/: Yes: Renal Inusuff ...: No Psych: Yes: Anxiety Endocrine: Yes: Diabetes Mellitus - Past Surgical History Past Surgical History: Yes: Cholecystectomy, - Alcohol/Substance Use Hx Alcohol Use: No History of Substance Use: reports: None - Smoking History Smoking history: Never smoked Have you smoked in the past 12 months: No - Social History Usual Living Arrangement: Alone ADL: Independent Occupation: retired History of Recent Travel: No Home Medications - Allergies Allergies/Adverse Reactions: Allergies Allergy/AdvReac Type Severity Reaction Status Date / Time shellfish derived Allergy Verified 11/08/19 17:27 - Home Medications Home Medications: Ambulatory Orders Donepezil HCl [Aricept -] 5 mg PO DAILY 08/17/17 Buspirone HCl [Buspar -] 10 mg PO BID #60 tablet 09/11/17 metFORMIN HCL [Metformin HCl] 500 mg PO BID #0 tab 09/11/17 Insulin Degludec [Tresiba] 24 unit SQ DAILY 05/27/19 Quetiapine Fumarate [Seroquel -] 25 mg PO HS 05/27/19 Trazodone HCl 150 mg PO DAILY 05/27/19 Losartan Potassium 100 mg PO DAILY 05/28/19 Albuterol Sulfate Inhaler - [Ventolin HFA Inhaler -] 1 - 2 inh PO QID 10/06/19 Amlodipine Besylate [Norvasc -] 5 mg PO DAILY 10/07/19 Atorvastatin Ca [Lipitor] 10 mg PO DAILY 10/07/19 Clopidogrel Bisulfate [Clopidogrel] 75 mg PO DAILY 10/07/19 Ergocalciferol (Vitamin D2) [Vitamin D2] 50,000 unit PO WEEKLY 10/07/19 Fluticasone Propionate [Flovent Hfa] 2 puff IH DAILY 10/07/19 Levothyroxine [Synthroid -] 25 mcg PO DAILY 10/07/19 Furosemide [Lasix -] 40 mg PO DAILY #30 tablet 10/10/19 Physical Exam Vital Signs: Vital Signs Temperature 98.8 F 11/09/19 06:20 Pulse Rate 93 H 11/09/19 06:20 Respiratory Rate 16 11/09/19 08:29 Blood Pressure 146/74 11/09/19 06:20 O2 Sat by Pulse Oximetry (%) 93 L 11/09/19 08:29 Labs: CBC, BMP 11/09/19 06:45 11/09/19 06:45 Problem List - Problems (1) Foot ulcer Assessment/Plan: 84 year old female was admitted for cellulitis, Cellulitis-1 Pending wound culture. 2- PT afebrile 3-foot xray negative waiting for mri results 4-empiric vanc/zosyn No drainage seen today Apply dsd 5- saline irrigation if draining Will follow Dr Perla or Dr Menchaca Code(s): L97.509 - NON-PRESSURE CHRONIC ULCER OTH PRT UNSP FOOT W UNSP SEVERITY Qualifiers: Laterality: unspecified laterality Non-pressure ulcer stage: unspecified non-pressure ulcer stage Qualified Code(s): L97.509 - Non-pressure chronic ulcer of other part of unspecified foot with unspecified severity
[2019-11-09] MEDS ORDERED: FUROSEMIDE 40 MG/4 ML INJECTABLE VIAL IVPUSH SCH (10:00)
[2019-11-09] MEDS ORDERED: DEXTROSE 5%-WATER - 50 ML IVPB ONE ×2 (10:05→16:42)
[2019-11-09] MEDS ORDERED: PIPERACILLIN/TAZOBACTAM 3.375 GM VIAL IVPB ONE ×2 (10:05→16:41)
[2019-11-09] MEDS: CLOPIDOGREL BISULFATE 75 MG TABLET (FP) PO SCH (10:10)
[2019-11-09] MEDS: LOSARTAN POTASSIUM 50 MG TABLET (FP) PO SCH (10:12)
[2019-11-09] MEDS: amLODIPine BESYLATE 5 MG TABLET (FP) PO SCH (10:12)
--- NOTE | 2019-11-09 10:15 | EKG ---
Test Reason : Blood Pressure : / mmHG Vent. Rate : 091 BPM Atrial Rate : 091 BPM P-R Int : 176 ms QRS Dur : 082 ms QT Int : 442 ms P-R-T Axes : 061 043 059 degrees QTc Int : 543 ms NORMAL SINUS RHYTHM NONSPECIFIC T WAVE ABNORMALITY PROLONGED QT ABNORMAL ECG WHEN COMPARED WITH ECG OF 06-OCT-2019 19:52, NONSPECIFIC T WAVE ABNORMALITY NOW EVIDENT IN ANTERIOR LEADS QT HAS LENGTHENED Confirmed by Addy Fitzgerald MD ([id number]) on 11/09/2019 10:14:44 AM Referred By: Confirmed By:Addy Fitzgerald MD
[2019-11-09] MEDS: ENOXAPARIN NA (PORCINE) 40 MG/0.4 ML DISP.SYRIN SQ SCH (10:20)
[2019-11-09] MEDS ORDERED: VANCOMYCIN 1 GM in D5W (PRE-DOCKED) 1,000 MG/250 ML IVPB ONE (13:45)
[2019-11-09] MEDS: FUROSEMIDE 40 MG/4 ML INJECTABLE VIAL IVPUSH SCH (14:00)
--- NOTE | 2019-11-09 14:34 | PN ---
Physical Exam: SUBJECTIVE: Patient seen and examined at the bedside. Patient stated that she had pain in her foot and had difficulty ambulating on it. Denied cp, sob, abd pain, n/v/c/d, dizziness, lightheadedness, fever, chills. OBJECTIVE: Vital Signs Period Temp Pulse Resp BP Sys/Persaud Pulse Ox Last 24 Hr 98 F-99.3 F 87-100 16-18 146-156/74-88 93-96 GENERAL: The patient is awake, alert, and fully oriented, in mild acute distress. HEAD: Normal with no signs of trauma. EYES: PERRL, extraocular movements intact, sclera anicteric, conjunctiva clear. ENT: Oropharynx clear without exudates, moist mucous membranes. NECK: Trachea midline, full range of motion, supple. LUNGS: Significant crackles bilaterally. No wheezes, has accessory muscle use after moving from chair to bed. HEART: Regular rate and rhythm, S1, S2 without murmur, rub. ABDOMEN: Soft, nontender, nondistended, normoactive bowel sounds, no guarding, no rebound, no masses. EXTREMITIES: pulses poorly palpated, warm, well-perfused, 2+ edema up to the ankle on the R side. Ulcer noted on the R medial portion of the foot, non- draining, non-purulent, dry NEUROLOGICAL: Cranial nerves II through XII grossly intact. 5/5 muscle strength , upper and lower extremities, bilaterally. PSYCH: Normal mood, normal affect. SKIN: Warm, dry, normal turgor. Laboratory Results - last 24 hr 11/08/19 11/08/19 11/08/19 18:10 18:10 18:10 WBC 8.9 RBC 3.50 L Hgb 8.9 L Hct 27.6 L MCV 78.9 L MCH 25.5 L MCHC 32.3 RDW 16.3 H Plt Count 316 MPV 8.1 Absolute Neuts (auto) 5.8 Neutrophils % 65.1 Lymphocytes % 24.4 D Monocytes % 8.5 Eosinophils % 1.0 D Basophils % 1.0 Nucleated RBC % 0 PT with INR INR PTT (Actin FS) Sodium 134 L Potassium 4.4 Chloride 97 L Carbon Dioxide 29 Anion Gap 8 BUN 19.8 H Creatinine 1.0 Est GFR (CKD-EPI)AfAm 60.33 Est GFR (CKD-EPI)NonAf 52.06 POC Glucometer Random Glucose 211 H Lactic Acid 1.7 Uric Acid 4.7 Calcium 8.6 Phosphorus Magnesium Iron TIBC Iron Saturation Unsaturated IBC Ferritin Total Bilirubin 0.3 AST 22 ALT 19 Alkaline Phosphatase 83 B-Natriuretic Peptide 2562.0 H Total Protein 7.7 Albumin 2.8 L Urine Color Urine Appearance Urine pH Ur Specific [place] Urine Protein Urine Glucose (UA) Urine Ketones Urine Blood Urine Nitrite Urine Bilirubin Urine Urobilinogen Ur Leukocyte Esterase Urine WBC (Auto) Urine RBC (Auto) Urine Casts (Auto) U Epithel Cells (Auto) Urine Bacteria (Auto) Stool Occult Blood 11/08/19 11/08/19 11/08/19 19:24 20:00 23:36 WBC RBC Hgb Hct MCV MCH MCHC RDW Plt Count MPV Absolute Neuts (auto) Neutrophils % Lymphocytes % Monocytes % Eosinophils % Basophils % Nucleated RBC % PT with INR 17.10 H INR 1.44 H PTT (Actin FS) 21.3 L Sodium Potassium Chloride Carbon Dioxide Anion Gap BUN Creatinine Est GFR (CKD-EPI)AfAm Est GFR (CKD-EPI)NonAf POC Glucometer Random Glucose Lactic Acid Uric Acid Calcium Phosphorus Magnesium Iron TIBC Iron Saturation Unsaturated IBC Ferritin Total Bilirubin AST ALT Alkaline Phosphatase B-Natriuretic Peptide Total Protein Albumin Urine Color Yellow Urine Appearance Clear Urine pH 7.0 Ur Specific [place] 1.017 Urine Protein 3+ H Urine Glucose (UA) Negative Urine Ketones Negative Urine Blood Negative Urine Nitrite Negative Urine Bilirubin Negative Urine Urobilinogen 1.0 Ur Leukocyte Esterase Negative Urine WBC (Auto) 2 Urine RBC (Auto) 1 Urine Casts (Auto) 0 U Epithel Cells (Auto) 5.1 Urine Bacteria (Auto) 49.0 Stool Occult Blood Negative 11/09/19 11/09/19 11/09/19 05:59 06:45 06:45 WBC 8.2 RBC 3.44 L Hgb 8.6 L Hct 26.6 L MCV 77.3 L MCH 25.0 L MCHC 32.4 RDW 15.6 Plt Count 311 MPV 7.7 Absolute Neuts (auto) 5.6 Neutrophils % 68.1 Lymphocytes % 23.1 Monocytes % 7.6 Eosinophils % 0.9 Basophils % 0.3 Nucleated RBC % 0 PT with INR INR PTT (Actin FS) Sodium 134 L Potassium 4.0 Chloride 100 Carbon Dioxide 27 Anion Gap 8 BUN 16.7 Creatinine 0.9 Est GFR (CKD-EPI)AfAm 68.53 Est GFR (CKD-EPI)NonAf 59.13 POC Glucometer 129 Random Glucose 126 H Lactic Acid Uric Acid Calcium 8.8 Phosphorus 3.8 Magnesium 2.4 Iron TIBC Iron Saturation Unsaturated IBC Ferritin Total Bilirubin 0.5 AST 13 L ALT 18 Alkaline Phosphatase 82 B-Natriuretic Peptide 2806.7 H Total Protein 8.1 Albumin 2.8 L Urine Color Urine Appearance Urine pH Ur Specific [place] Urine Protein Urine Glucose (UA) Urine Ketones Urine Blood Urine Nitrite Urine Bilirubin Urine Urobilinogen Ur Leukocyte Esterase Urine WBC (Auto) Urine RBC (Auto) Urine Casts (Auto) U Epithel Cells (Auto) Urine Bacteria (Auto) Stool Occult Blood 11/09/19 11/09/19 06:45 12:12 WBC RBC Hgb Hct MCV MCH MCHC RDW Plt Count MPV Absolute Neuts (auto) Neutrophils % Lymphocytes % Monocytes % Eosinophils % Basophils % Nucleated RBC % PT with INR INR PTT (Actin FS) Sodium Potassium Chloride Carbon Dioxide Anion Gap BUN Creatinine Est GFR (CKD-EPI)AfAm Est GFR (CKD-EPI)NonAf POC Glucometer 170 Random Glucose Lactic Acid Uric Acid Calcium Phosphorus Magnesium Iron 20 L TIBC 321 Iron Saturation 6 L Unsaturated IBC 301 H Ferritin 30.0 Total Bilirubin AST ALT Alkaline Phosphatase B-Natriuretic Peptide Total Protein Albumin Urine Color Urine Appearance Urine pH Ur Specific [place] Urine Protein Urine Glucose (UA) Urine Ketones Urine Blood Urine Nitrite Urine Bilirubin Urine Urobilinogen Ur Leukocyte Esterase Urine WBC (Auto) Urine RBC (Auto) Urine Casts (Auto) U Epithel Cells (Auto) Urine Bacteria (Auto) Stool Occult Blood Active Medications Generic Name Dose Route Start Last Admin Trade Name Freq PRN Reason Stop Dose Admin Albuterol Sulfate 1 puff 11/09/19 05:56 Ventolin Hfa Inhaler - IH Q6H PRN SHORTNESS OF BREATH Amlodipine Besylate 5 mg 11/09/19 10:00 11/09/19 10:12 Norvasc - PO 5 mg DAILY [facility] Administration Atorvastatin Calcium 10 mg 11/09/19 22:00 Lipitor - PO HS [facility] Clopidogrel Bisulfate 75 mg 11/09/19 10:00 11/09/19 10:10 Plavix - PO 75 mg DAILY [facility] Administration Enoxaparin Sodium 40 mg 11/09/19 10:00 11/09/19 10:20 Lovenox - SQ 40 mg DAILY [facility] Administration Furosemide 40 mg 11/09/19 14:00 Lasix Injection - IVPUSH BID@0600,1400 [facility] Piperacillin Sod/Tazobactam 50 mls @ 100 mls/hr 11/09/19 10:00 11/09/19 10:13 Sod 3.375 gm/ Dextrose IVPB 11/09/19 18:29 100 mls/hr Q8H-IV [facility] Administration Protocol Piperacillin Sod/Tazobactam 50 mls @ 100 mls/hr 11/10/19 02:00 Sod 3.375 gm/ Dextrose IVPB Q8H-IV [facility] Protocol Insulin Aspart 1 vial 11/09/19 07:00 11/09/19 12:27 Novolog Vial Sliding Scale - SQ 2 units ACHS [facility] Administration Protocol Levothyroxine Sodium 25 mcg 11/09/19 07:00 11/09/19 06:06 Synthroid - PO 25 mcg DAILY@0700 [facility] Administration Losartan Potassium 100 mg 11/09/19 10:00 11/09/19 10:12 Cozaar - PO 100 mg DAILY [facility] Administration Mometasone Furoate 1 puff 11/09/19 22:00 Asmanex 110mcg - IH HS [facility] Vancomycin HCl 1,000 mg 11/09/19 10:00 Vancomycin (Pre-Docked) IVPB DAILY [facility] Protocol ASSESSMENT/PLAN: Lynne Pierce is an 84 year old female with a past medical history of HTN, HLD, CVA, asthma, depression, anxiety, insomnia, IDDM, chronic R foot wound, presents with right foot wound pain and admitted for R foot cellulitis. Cellulitis - no leukocytosis, pt afebrile - pending wound cultures - Foot XR with no definitive osteomyelitis - foot MRI - empiric vanc/zosyn - podiatry recs appreciated, if drainage occurs will add dressings - ID consulted Acute on Chronic HFpEF - BNP 2562 - continue Lasix 40 IV bid - strict I/Os - daily weights - CXR with bilateral effusions Microcytic anemia - iron studies noting an iron deficiency anemia - FOBT negative - GI consulted, recs appreciated - Upper GI series when patient stable - will follow with GI as outpatient Asthma - Duonebs - albuterol prn HLD - home Lipitor HTN - home amlodipine Hx of CVA - on Plavix, unclear when started, will need to follow up with PCP upon discharge to determine continued necessity of Plavix DM - ISS ACHS - BGM ACHS - hold oral antiglycemics Hypothyroid - home synthroid DVT Prophylaxis - Lovenox 40 mg subq daily F/E/N - no standing fluids, encourage PO intake - continue to monitor electrolytes and replete as necessary - diabetic/low sodium diet Dispo - continue to monitor on Med-surg Visit type - Emergency Visit Emergency Visit: Yes ED Registration Date: 11/08/19 Care time: The patient presented to the Emergency Department on the above date and was hospitalized for further evaluation of their emergent condition. - New Patient This patient is new to me today: Yes Date on this admission: 11/09/19 - Critical Care Critical Care patient: No
--- NOTE | 2019-11-09 16:00 | PN ---
Progress Note (short form) - Note Progress Note: ID consult dictated imp/reccd 84 yo female eith dm admitted from home with 3 day history of swelling of her right foot with drainage from the bunion of the right first toe- there is a shallow fluid filled collection there no fevers cellulitis-r/o small abscess (superficial_ r/o osteomyelitis MRI foot vanco/zosyn f/u cultures esr/crp duplex RLE Problem List - Problems (1) Cellulitis Code(s): L03.90 - CELLULITIS, UNSPECIFIED (2) Diabetes mellitus Code(s): E11.9 - TYPE 2 DIABETES MELLITUS WITHOUT COMPLICATIONS
--- NOTE | 2019-11-09 18:07 | PN ---
Teaching Attending Note Name of Resident: Joselo Chan ATTENDING PHYSICIAN STATEMENT I saw and evaluated the patient. I reviewed the resident's note and discussed the case with the resident. I agree with the resident's findings and plan as documented with exceptions below. SUBJECTIVE: Patient seen and examined. right foot swelling/pain. Denies dyspnea, orthopnea, PND. pos leg swelling. No further dark or bloody stools this admission. OBJECTIVE: Vital Signs Period Temp Pulse Resp BP Sys/Persaud Pulse Ox Last 24 Hr 98 F-98.8 F 93-101 16-18 146-160/74-88 93-95 Intake & Output 11/06/19 11/07/19 11/08/19 11/09/19 23:59 23:59 23:59 23:59 Intake Total 0 Balance 0 Weight 176 lb 184 lb 14.4 oz General: lying in bed, no acute distress chest: bibasilar till mid lung fine rales Abdomen:Soft, obese, NT Extremities: right foot swelling/tenderness/warmth, 3 cm medial right great toe , with scant discharge. unablet to palpate DP pulses bilateral LE, good capillary refill Home Medications Medication Instructions Recorded Donepezil HCl [Aricept -] 5 mg PO DAILY 08/17/17 Buspirone HCl [Buspar -] 10 mg PO BID #60 tablet 09/11/17 metFORMIN HCL [Metformin HCl] 500 mg PO BID #0 tab 09/11/17 Insulin Degludec [Tresiba] 24 unit SQ DAILY 05/27/19 Quetiapine Fumarate [Seroquel -] 25 mg PO HS 05/27/19 Trazodone HCl 150 mg PO DAILY 05/27/19 Losartan Potassium 100 mg PO DAILY 05/28/19 Albuterol Sulfate Inhaler - 1 - 2 inh PO QID 10/06/19 [Ventolin HFA Inhaler -] Amlodipine Besylate [Norvasc -] 5 mg PO DAILY 10/07/19 Atorvastatin Ca [Lipitor] 10 mg PO DAILY 10/07/19 Clopidogrel Bisulfate [Clopidogrel] 75 mg PO DAILY 10/07/19 Ergocalciferol (Vitamin D2) 50,000 unit PO WEEKLY 10/07/19 [Vitamin D2] Fluticasone Propionate [Flovent 2 puff IH DAILY 10/07/19 Hfa] Levothyroxine [Synthroid -] 25 mcg PO DAILY 10/07/19 Furosemide [Lasix -] 40 mg PO DAILY #30 tablet 10/10/19 Active Medications Albuterol Sulfate (Ventolin Hfa Inhaler -) 1 puff IH Q6H PRN PRN Reason: SHORTNESS OF BREATH Amlodipine Besylate (Norvasc -) 5 mg PO DAILY [facility] Last Admin: 11/09/19 10:12 Dose: 5 mg Atorvastatin Calcium (Lipitor -) 10 mg PO HS [facility] Clopidogrel Bisulfate (Plavix -) 75 mg PO DAILY [facility] Last Admin: 11/09/19 10:10 Dose: 75 mg Enoxaparin Sodium (Lovenox -) 40 mg SQ DAILY [facility] Last Admin: 11/09/19 10:20 Dose: 40 mg Furosemide (Lasix Injection -) 40 mg IVPUSH BID@0600,1400 [facility] Last Admin: 11/09/19 14:00 Dose: 40 mg Piperacillin Sod/Tazobactam (Sod 3.375 gm/ Dextrose) 50 mls @ 100 mls/hr IVPB Q8H-IV [facility]; Protocol Stop: 11/09/19 18:29 Last Admin: 11/09/19 17:03 Dose: 100 mls/hr Piperacillin Sod/Tazobactam (Sod 3.375 gm/ Dextrose) 50 mls @ 100 mls/hr IVPB Q8H-IV [facility]; Protocol Insulin Aspart (Novolog Vial Sliding Scale -) 1 vial SQ ACHS [facility]; Protocol Last Admin: 11/09/19 18:05 Dose: 2 units Levothyroxine Sodium (Synthroid -) 25 mcg PO DAILY@0700 [facility] Last Admin: 11/09/19 06:06 Dose: 25 mcg Losartan Potassium (Cozaar -) 100 mg PO DAILY [facility] Last Admin: 11/09/19 10:12 Dose: 100 mg Mometasone Furoate (Asmanex 110mcg -) 1 puff IH HS [facility] Vancomycin HCl (Vancomycin (Pre-Docked)) 1,000 mg IVPB DAILY@2000 [facility]; Protocol Laboratory Results - last 24 hr 11/08/19 11/08/19 11/08/19 18:10 18:10 18:10 WBC 8.9 RBC 3.50 L Hgb 8.9 L Hct 27.6 L MCV 78.9 L MCH 25.5 L MCHC 32.3 RDW 16.3 H Plt Count 316 MPV 8.1 Absolute Neuts (auto) 5.8 Neutrophils % 65.1 Lymphocytes % 24.4 D Monocytes % 8.5 Eosinophils % 1.0 D Basophils % 1.0 Nucleated RBC % 0 ESR PT with INR INR PTT (Actin FS) Sodium 134 L Potassium 4.4 Chloride 97 L Carbon Dioxide 29 Anion Gap 8 BUN 19.8 H Creatinine 1.0 Est GFR (CKD-EPI)AfAm 60.33 Est GFR (CKD-EPI)NonAf 52.06 POC Glucometer Random Glucose 211 H Lactic Acid 1.7 Uric Acid 4.7 Calcium 8.6 Phosphorus Magnesium Iron TIBC Iron Saturation Unsaturated IBC Ferritin Total Bilirubin 0.3 AST 22 ALT 19 Alkaline Phosphatase 83 C-Reactive Protein B-Natriuretic Peptide 2562.0 H Total Protein 7.7 Albumin 2.8 L Urine Color Urine Appearance Urine pH Ur Specific [place] Urine Protein Urine Glucose (UA) Urine Ketones Urine Blood Urine Nitrite Urine Bilirubin Urine Urobilinogen Ur Leukocyte Esterase Urine WBC (Auto) Urine RBC (Auto) Urine Casts (Auto) U Epithel Cells (Auto) Urine Bacteria (Auto) Stool Occult Blood 11/08/19 11/08/19 11/08/19 19:24 20:00 23:36 WBC RBC Hgb Hct MCV MCH MCHC RDW Plt Count MPV Absolute Neuts (auto) Neutrophils % Lymphocytes % Monocytes % Eosinophils % Basophils % Nucleated RBC % ESR PT with INR 17.10 H INR 1.44 H PTT (Actin FS) 21.3 L Sodium Potassium Chloride Carbon Dioxide Anion Gap BUN Creatinine Est GFR (CKD-EPI)AfAm Est GFR (CKD-EPI)NonAf POC Glucometer Random Glucose Lactic Acid Uric Acid Calcium Phosphorus Magnesium Iron TIBC Iron Saturation Unsaturated IBC Ferritin Total Bilirubin AST ALT Alkaline Phosphatase C-Reactive Protein B-Natriuretic Peptide Total Protein Albumin Urine Color Yellow Urine Appearance Clear Urine pH 7.0 Ur Specific [place] 1.017 Urine Protein 3+ H Urine Glucose (UA) Negative Urine Ketones Negative Urine Blood Negative Urine Nitrite Negative Urine Bilirubin Negative Urine Urobilinogen 1.0 Ur Leukocyte Esterase Negative Urine WBC (Auto) 2 Urine RBC (Auto) 1 Urine Casts (Auto) 0 U Epithel Cells (Auto) 5.1 Urine Bacteria (Auto) 49.0 Stool Occult Blood Negative 11/09/19 11/09/19 11/09/19 05:59 06:45 06:45 WBC 8.2 RBC 3.44 L Hgb 8.6 L Hct 26.6 L MCV 77.3 L MCH 25.0 L MCHC 32.4 RDW 15.6 Plt Count 311 MPV 7.7 Absolute Neuts (auto) 5.6 Neutrophils % 68.1 Lymphocytes % 23.1 Monocytes % 7.6 Eosinophils % 0.9 Basophils % 0.3 Nucleated RBC % 0 ESR PT with INR INR PTT (Actin FS) Sodium 134 L Potassium 4.0 Chloride 100 Carbon Dioxide 27 Anion Gap 8 BUN 16.7 Creatinine 0.9 Est GFR (CKD-EPI)AfAm 68.53 Est GFR (CKD-EPI)NonAf 59.13 POC Glucometer 129 Random Glucose 126 H Lactic Acid Uric Acid Calcium 8.8 Phosphorus 3.8 Magnesium 2.4 Iron TIBC Iron Saturation Unsaturated IBC Ferritin Total Bilirubin 0.5 AST 13 L ALT 18 Alkaline Phosphatase 82 C-Reactive Protein 10.0 H B-Natriuretic Peptide 2806.7 H Total Protein 8.1 Albumin 2.8 L Urine Color Urine Appearance Urine pH Ur Specific [place] Urine Protein Urine Glucose (UA) Urine Ketones Urine Blood Urine Nitrite Urine Bilirubin Urine Urobilinogen Ur Leukocyte Esterase Urine WBC (Auto) Urine RBC (Auto) Urine Casts (Auto) U Epithel Cells (Auto) Urine Bacteria (Auto) Stool Occult Blood 11/09/19 11/09/19 11/09/19 06:45 12:12 16:20 WBC RBC Hgb Hct MCV MCH MCHC RDW Plt Count MPV Absolute Neuts (auto) Neutrophils % Lymphocytes % Monocytes % Eosinophils % Basophils % Nucleated RBC % ESR 108 H PT with INR INR PTT (Actin FS) Sodium Potassium Chloride Carbon Dioxide Anion Gap BUN Creatinine Est GFR (CKD-EPI)AfAm Est GFR (CKD-EPI)NonAf POC Glucometer 170 Random Glucose Lactic Acid Uric Acid Calcium Phosphorus Magnesium Iron 20 L TIBC 321 Iron Saturation 6 L Unsaturated IBC 301 H Ferritin 30.0 Total Bilirubin AST ALT Alkaline Phosphatase C-Reactive Protein B-Natriuretic Peptide Total Protein Albumin Urine Color Urine Appearance Urine pH Ur Specific [place] Urine Protein Urine Glucose (UA) Urine Ketones Urine Blood Urine Nitrite Urine Bilirubin Urine Urobilinogen Ur Leukocyte Esterase Urine WBC (Auto) Urine RBC (Auto) Urine Casts (Auto) U Epithel Cells (Auto) Urine Bacteria (Auto) Stool Occult Blood 11/09/19 11/09/19 16:20 18:03 WBC RBC Hgb Hct MCV MCH MCHC RDW Plt Count MPV Absolute Neuts (auto) Neutrophils % Lymphocytes % Monocytes % Eosinophils % Basophils % Nucleated RBC % ESR PT with INR INR PTT (Actin FS) Sodium Potassium Chloride Carbon Dioxide Anion Gap BUN Creatinine Est GFR (CKD-EPI)AfAm Est GFR (CKD-EPI)NonAf POC Glucometer 191 Random Glucose Lactic Acid Uric Acid Calcium Phosphorus Magnesium Iron TIBC Iron Saturation Unsaturated IBC Ferritin Total Bilirubin AST ALT Alkaline Phosphatase C-Reactive Protein 8.0 H B-Natriuretic Peptide Total Protein Albumin Urine Color Urine Appearance Urine pH Ur Specific [place] Urine Protein Urine Glucose (UA) Urine Ketones Urine Blood Urine Nitrite Urine Bilirubin Urine Urobilinogen Ur Leukocyte Esterase Urine WBC (Auto) Urine RBC (Auto) Urine Casts (Auto) U Epithel Cells (Auto) Urine Bacteria (Auto) Stool Occult Blood Microbiology 11/08/19 19:24 Wound Gram Stain - Final ASSESSMENT AND PLAN: 84 yof with PMHx of diastolic HF, chronic Right foot wound, HTN, HLD, CVA, asthma, depression, anxiety, insomnia, IDDM admitted with right foot pain/ swelling, and 1 episode of hematochezia last week -RLE wound infection/cellulitis, r/o osteomyelitis -Acute on chronic diastolic heart failure exacerbation -?lower GI bleed -IDDM -HTN -HLD -Asthma -Depression -Anxiety -Insomnia Plan: Podiatry/ID input noted ESR/CRP noted zosyn/vancomcyin. Follow up MRI RLE. lasix 40 mg IV BID, strict I/os and daily weights. Monitor renal function. Low salt diet counseling. GI input noted. h/h stable, fobt neg. Outpatient follow up once active medical issues resolve unless new bleed concerns inhouse. PPI daily. 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 However suspect underling PVD. Vascular surgery input. levothyroxine/losartan/amlodipine/statin [id number] Lovenox Dispo pending clinical improvement.
[2019-11-09] MEDS ORDERED: QUEtiapine FUMARATE 25 MG TABLET (FP) PO SCH (22:00)
[2019-11-09] MEDS: MOMETASONE FUROATE 110 MCG/IH INHALER IH SCH (22:13)
[2019-11-09] MEDS: ATORVASTATIN CA 10 MG TABLET (FP) PO SCH (22:17)
[2019-11-10] MEDS ORDERED: QUEtiapine FUMARATE 25 MG TABLET (FP) PO ONE (00:30)
[2019-11-10] MEDS ORDERED: MELATONIN 5 MG TABLETS PO ONE (00:30)
[2019-11-10] MEDS ORDERED: PIPERACILLIN/TAZOBACTAM 3.375 GM VIAL IVPB ONE ×3 (01:35→16:05)
[2019-11-10] MEDS ORDERED: DEXTROSE 5%-WATER - 50 ML IVPB ONE ×3 (01:36→16:06)
[2019-11-10] MEDS: PIPERACILLIN/TAZOB 3.375 GM 3.375 GM in DEXTROSE 5%-WATER - 50 ML IVPB SCH ×3 (01:44→17:49)
[2019-11-10] MEDS: FUROSEMIDE 40 MG/4 ML INJECTABLE VIAL IVPUSH SCH (06:08)
[2019-11-10] MEDS: LEVOTHYROXINE NA 25 MCG TABLET (FP) PO SCH (06:09)
[2019-11-10] MEDS: INSULIN SLIDING SCALE (NOVOLOG) 1 VIAL SQ SCH ×4 (06:09→21:18)
[2019-11-10] MEDS ORDERED: PT OWN MED DRAWER 7, Y5N ONE (06:28)
[2019-11-10 07:00] LABS: HEMATOCRIT 25.6 % (32.4-45.2); HEMOGLOBIN 8.4 GM/dL (10.7-15.3); MCH 25.2 pg (25.7-33.7); MCHC 32.8 g/dl (32.0-36.0); MEAN PLT VOLUME 7.6 fl (7.5-11.1); PLATELET COUNT 306 K/MM3 (134-434); RBC 3.33 M/mm3 (3.60-5.2); RDW 16.1 % (11.6-15.6); WHITE BLOOD COUNT 8.3 K/mm3 (4.0-10.0)
[2019-11-10 07:18] LABS: BLOOD UREA NITROGEN 22.4 mg/dL (7-18); CALCIUM 8.5 mg/dL (8.5-10.1); CREATININE 1.1 mg/dL (0.55-1.3); MAGNESIUM 2.1 mg/dL (1.8-2.4); PHOSPHOROUS 5.1 mg/dL (2.5-4.9)
[2019-11-10] MEDS: amLODIPine BESYLATE 5 MG TABLET (FP) PO SCH (09:15)
[2019-11-10] MEDS: LOSARTAN POTASSIUM 50 MG TABLET (FP) PO SCH (09:16)
[2019-11-10] MEDS: CLOPIDOGREL BISULFATE 75 MG TABLET (FP) PO SCH (09:16)
[2019-11-10] MEDS: ENOXAPARIN NA (PORCINE) 40 MG/0.4 ML DISP.SYRIN SQ SCH (09:16)
--- NOTE | 2019-11-10 11:08 | PN ---
Physical Exam: SUBJECTIVE: Patient seen and examined this AM. Pain and swelling has improved. OBJECTIVE: Vital Signs Period Temp Pulse Resp BP Sys/Persaud Pulse Ox Last 24 Hr 98.7 F-99.2 F 92-101 18-18 137-160/66-85 93-93 GENERAL: A&Ox3, NAD HEAD: NCAT EYES: PERRL, EOMI ENT: MMM NECK: Supple LUNGS: Rhonchi throughout however improved HEART: Regular rate and rhythm, S1, S2 without murmur ABDOMEN: Soft, nontender, nondistended, + bowel sounds, no guarding EXTREMITIES: Warm, well-perfused, 1+ edema b/l however improved. Ulcer over the R medial foot, non-draining, non-purulent, dry, without surrounding erythema, nontender. NEUROLOGICAL: Cranial nerves II through XII grossly intact SKIN: Warm, dry Laboratory Last Values WBC 8.3 K/mm3 (4.0-10.0) 11/10/19 06:05 RBC 3.33 M/mm3 (3.60-5.2) L 11/10/19 06:05 Hgb 8.4 GM/dL (10.7-15.3) L 11/10/19 06:05 Hct 25.6 % (32.4-45.2) L 11/10/19 06:05 MCV 77.0 fl (80-96) L 11/10/19 06:05 MCH 25.2 pg (25.7-33.7) L 11/10/19 06:05 MCHC 32.8 g/dl (32.0-36.0) 11/10/19 06:05 RDW 16.1 % (11.6-15.6) H 11/10/19 06:05 Plt Count 306 K/MM3 (134-434) 11/10/19 06:05 MPV 7.6 fl (7.5-11.1) 11/10/19 06:05 Absolute Neuts (auto) 5.6 K/mm3 (1.5-8.0) 11/09/19 06:45 Neutrophils % 68.1 % (42.8-82.8) 11/09/19 06:45 Lymphocytes % 23.1 % (8-40) 11/09/19 06:45 Monocytes % 7.6 % (3.8-10.2) 11/09/19 06:45 Eosinophils % 0.9 % (0-4.5) 11/09/19 06:45 Basophils % 0.3 % (0-2.0) 11/09/19 06:45 Nucleated RBC % 0 % (0-0) 11/09/19 06:45 ESR 108 mm/hr (0-30) H 11/09/19 16:20 PT with INR 17.10 SEC (9.7-13.0) H 11/08/19 20:00 INR 1.44 (0.83-1.09) H 11/08/19 20:00 PTT (Actin FS) 21.3 SECONDS (25.2-36.5) L 11/08/19 20:00 Sodium 134 mmol/L (136-145) L 11/10/19 06:05 Potassium 4.0 mmol/L (3.5-5.1) 11/10/19 06:05 Chloride 98 mmol/L (98-107) 11/10/19 06:05 Carbon Dioxide 29 mmol/L (21-32) 11/10/19 06:05 Anion Gap 7 MMOL/L (8-16) L 11/10/19 06:05 BUN 22.4 mg/dL (7-18) H 11/10/19 06:05 Creatinine 1.1 mg/dL (0.55-1.3) 11/10/19 06:05 Est GFR (CKD-EPI)AfAm 53.77 11/10/19 06:05 Est GFR (CKD-EPI)NonAf 46.39 11/10/19 06:05 POC Glucometer 193 UNITS (80-120) 11/10/19 06:05 Random Glucose 191 mg/dL (74-106) H 11/10/19 06:05 Hemoglobin A1c % 7.7 % (4.2-6.3) H 11/10/19 06:05 Lactic Acid 1.7 mmol/L (0.4-2.0) 11/08/19 18:10 Uric Acid 4.7 mg/dL (2.6-7.2) 11/08/19 18:10 Calcium 8.5 mg/dL (8.5-10.1) 11/10/19 06:05 Phosphorus 5.1 mg/dL (2.5-4.9) H 11/10/19 06:05 Magnesium 2.1 mg/dL (1.8-2.4) 11/10/19 06:05 Iron 20 ug/dL (50-175) L 11/09/19 06:45 TIBC 321 ug/dL (250-450) 11/09/19 06:45 Iron Saturation 6 % (17.5-39) L 11/09/19 06:45 Unsaturated IBC 301 ug/dL (200-275) H 11/09/19 06:45 Ferritin 30.0 ng/ml (8-388) 11/09/19 06:45 Total Bilirubin 0.5 mg/dL (0.2-1) 11/09/19 06:45 AST 13 U/L (15-37) L 11/09/19 06:45 ALT 18 U/L (13-61) 11/09/19 06:45 Alkaline Phosphatase 82 U/L (45-117) 11/09/19 06:45 C-Reactive Protein 8.0 MG/DL (0.00-0.3) H 11/09/19 16:20 B-Natriuretic Peptide 2806.7 pg/ml (5-450) H 11/09/19 06:45 Total Protein 8.1 g/dl (6.4-8.2) 11/09/19 06:45 Albumin 2.8 g/dl (3.4-5.0) L 11/09/19 06:45 Urine Color Yellow 11/08/19 23:36 Urine Appearance Clear 11/08/19 23:36 Urine pH 7.0 (5.0-8.0) 11/08/19 23:36 Ur Specific [place] 1.017 (1.010-1.035) 11/08/19 23:36 Urine Protein 3+ (NEGATIVE) H 11/08/19 23:36 Urine Glucose (UA) Negative (NEGATIVE) 11/08/19 23:36 Urine Ketones Negative (NEGATIVE) 11/08/19 23:36 Urine Blood Negative (NEGATIVE) 11/08/19 23:36 Urine Nitrite Negative (NEGATIVE) 11/08/19 23:36 Urine Bilirubin Negative (NEGATIVE) 11/08/19 23:36 Urine Urobilinogen 1.0 mg/dL (0.2-1.0) 11/08/19 23:36 Ur Leukocyte Esterase Negative (NEGATIVE) 11/08/19 23:36 Urine WBC (Auto) 2 /hpf (0-5) 11/08/19 23:36 Urine RBC (Auto) 1 /hpf (0-4) 11/08/19 23:36 Urine Casts (Auto) 0 /lpf (0-8) 11/08/19 23:36 U Epithel Cells (Auto) 5.1 /HPF (0-5/HPF) 11/08/19 23:36 Urine Bacteria (Auto) 49.0 /hpf (NEGATIVE) 11/08/19 23:36 Stool Occult Blood Negative (NEGATIVE) 11/08/19 19:24 Microbiology 11/08/19 19:24 Wound Gram Stain - Final 11/08/19 19:24 Wound Wound Culture - Preliminary Group D Strep Or Entero Coccus Beta Hemolytic Strep 11/08/19 23:36 Urine - Urine - Catheterized Urine Culture - Final NO GROWTH OBTAINED 11/08/19 18:05 Blood - Peripheral Venous Blood Culture - Preliminary NO GROWTH OBTAINED AFTER 24 HOURS, INCUBATION TO CONTINUE FOR 4 DAYS. 11/08/19 18:10 Blood - Peripheral Venous Blood Culture - Preliminary NO GROWTH OBTAINED AFTER 24 HOURS, INCUBATION TO CONTINUE FOR 4 DAYS. Active Medications Albuterol Sulfate (Ventolin Hfa Inhaler -) 1 puff IH Q6H PRN PRN Reason: SHORTNESS OF BREATH Amlodipine Besylate (Norvasc -) 5 mg PO DAILY [facility] Last Admin: 11/10/19 09:15 Dose: 5 mg Atorvastatin Calcium (Lipitor -) 10 mg PO HS [facility] Last Admin: 11/09/19 22:17 Dose: 10 mg Buspirone HCl (Buspar -) 10 mg PO BID [facility] Clopidogrel Bisulfate (Plavix -) 75 mg PO DAILY [facility] Last Admin: 11/10/19 09:16 Dose: 75 mg Donepezil HCl (Aricept -) 5 mg PO DAILY [facility] Enoxaparin Sodium (Lovenox -) 40 mg SQ DAILY [facility] Last Admin: 11/10/19 09:16 Dose: 40 mg Furosemide (Lasix Injection -) 40 mg IVPUSH DAILY [facility] Piperacillin Sod/Tazobactam (Sod 3.375 gm/ Dextrose) 50 mls @ 100 mls/hr IVPB Q8H-IV [facility]; Protocol Last Admin: 11/10/19 09:15 Dose: 100 mls/hr Insulin Aspart (Novolog Vial Sliding Scale -) 1 vial SQ ACHS [facility]; Protocol Last Admin: 11/10/19 06:09 Dose: 2 units Levothyroxine Sodium (Synthroid -) 25 mcg PO DAILY@0700 [facility] Last Admin: 11/10/19 06:09 Dose: 25 mcg Losartan Potassium (Cozaar -) 100 mg PO DAILY [facility] Last Admin: 11/10/19 09:16 Dose: 100 mg Mometasone Furoate (Asmanex 110mcg -) 1 puff IH HS [facility] Last Admin: 11/09/19 22:13 Dose: 1 puff Trazodone HCl (Desyrel -) 150 mg PO HS [facility] Vancomycin HCl (Vancomycin (Pre-Docked)) 1,000 mg IVPB Q24H [facility]; Protocol ASSESSMENT/PLAN: 84 y/o F with PMHx HTN, HLD, CVA, asthma, depression, anxiety, insomnia, IDDM, chronic R foot wound, presents with right foot pain admitted for R foot cellulitis. #Cellulitis - Remains afebrile, without leukocytosis, ESR/CRP Noted - Follow wound cultures - MRI pending - Continue vancomycin, zosyn (ABx course started on 11/09) - Podiatry, ID consulted, appreciated rec's #Acute exacerbation of HFpEF - Continue IV Diuresis via Lasix 40 Daily - strict I/Os, daily weights, Monitor Cr #Iron Deficiency anemia - FOBT negative, H&H Stable - GI consulted, appreciate rec's, Upper GI series when stable #Asthma - Ventolin PRN #HLD - Statin #HTN - Continue home dose Losartan, Amlodipine #Hx of CVA - Continue Plavix #DM - ISS, BGM ACHS #Hypothyroidism - home dose synthroid #PPx - DVT: Lovenox - GI: PPI #FEN - PO Fluids - Replete PRN - diabetic/low sodium diet Dispo: monitor on Med-surg Visit type - Emergency Visit Emergency Visit: Yes ED Registration Date: 11/08/19 Care time: The patient presented to the Emergency Department on the above date and was hospitalized for further evaluation of their emergent condition. - New Patient This patient is new to me today: Yes Date on this admission: 11/10/19 - Critical Care Critical Care patient: No ATTENDING PHYSICIAN STATEMENT I saw and evaluated the patient. I reviewed the resident's note and discussed the case with the resident. I agree with the resident's findings and plan as documented. SUBJECTIVE: OBJECTIVE: ASSESSMENT AND PLAN:
--- NOTE | 2019-11-10 11:09 | PN ---
Teaching Attending Note Name of Resident: Serena Avendano ATTENDING PHYSICIAN STATEMENT I saw and evaluated the patient. I reviewed the resident's note and discussed the case with the resident. I agree with the resident's findings and plan as documented with exceptions below. SUBJECTIVE: Patient seen and examined. right foot symptoms improved. OBJECTIVE: Vital Signs Period Temp Pulse Resp BP Sys/Persaud Pulse Ox Last 24 Hr 98.5N F-99.2 F 83-101 18-18 134-160/62-85 93-93 Intake & Output 11/07/19 11/08/19 11/09/19 11/10/19 23:59 23:59 23:59 23:59 Intake Total 0 50 Balance 0 50 Weight 176 lb 184 lb 14.4 oz 179 lb 3.2 oz General: sitting in bed, no acute distress Chest; minimal rales, markedly improved exam, pos air entry Abdomen:Soft, NT Extremities: medial right great toe ulcer with improved erythema/swelling, no active discharge, foot swelling improved, unable to palpate DP/PT pulses, good capillary refill Home Medications Medication Instructions Recorded Donepezil HCl [Aricept -] 5 mg PO DAILY 08/17/17 Buspirone HCl [Buspar -] 10 mg PO BID #60 tablet 09/11/17 metFORMIN HCL [Metformin HCl] 500 mg PO BID #0 tab 09/11/17 Insulin Degludec [Tresiba] 24 unit SQ DAILY 05/27/19 Quetiapine Fumarate [Seroquel -] 25 mg PO HS 05/27/19 Trazodone HCl 150 mg PO HS 05/27/19 Losartan Potassium 100 mg PO DAILY 05/28/19 Albuterol Sulfate Inhaler - 1 - 2 inh PO QID 10/06/19 [Ventolin HFA Inhaler -] Amlodipine Besylate [Norvasc -] 5 mg PO DAILY 10/07/19 Atorvastatin Ca [Lipitor] 10 mg PO DAILY 10/07/19 Clopidogrel Bisulfate [Clopidogrel] 75 mg PO DAILY 10/07/19 Ergocalciferol (Vitamin D2) 50,000 unit PO WEEKLY 10/07/19 [Vitamin D2] Fluticasone Propionate [Flovent 2 puff IH DAILY 10/07/19 Hfa] Levothyroxine [Synthroid -] 25 mcg PO DAILY 10/07/19 Furosemide [Lasix -] 40 mg PO DAILY #30 tablet 10/10/19 Active Medications Albuterol Sulfate (Ventolin Hfa Inhaler -) 1 puff IH Q6H PRN PRN Reason: SHORTNESS OF BREATH Amlodipine Besylate (Norvasc -) 5 mg PO DAILY [facility] Last Admin: 11/10/19 09:15 Dose: 5 mg Atorvastatin Calcium (Lipitor -) 10 mg PO HS [facility] Last Admin: 11/09/19 22:17 Dose: 10 mg Buspirone HCl (Buspar -) 10 mg PO BID [facility] Clopidogrel Bisulfate (Plavix -) 75 mg PO DAILY [facility] Last Admin: 11/10/19 09:16 Dose: 75 mg Donepezil HCl (Aricept -) 5 mg PO DAILY [facility] Enoxaparin Sodium (Lovenox -) 40 mg SQ DAILY [facility] Last Admin: 11/10/19 09:16 Dose: 40 mg Furosemide (Lasix Injection -) 40 mg IVPUSH DAILY [facility] Piperacillin Sod/Tazobactam (Sod 3.375 gm/ Dextrose) 50 mls @ 100 mls/hr IVPB Q8H-IV [facility]; Protocol Last Admin: 11/10/19 09:15 Dose: 100 mls/hr Insulin Aspart (Novolog Vial Sliding Scale -) 1 vial SQ ACHS [facility]; Protocol Last Admin: 11/10/19 06:09 Dose: 2 units Levothyroxine Sodium (Synthroid -) 25 mcg PO DAILY@0700 [facility] Last Admin: 11/10/19 06:09 Dose: 25 mcg Losartan Potassium (Cozaar -) 100 mg PO DAILY [facility] Last Admin: 11/10/19 09:16 Dose: 100 mg Mometasone Furoate (Asmanex 110mcg -) 1 puff IH HS [facility] Last Admin: 11/09/19 22:13 Dose: 1 puff Trazodone HCl (Desyrel -) 150 mg PO HS [facility] Vancomycin HCl (Vancomycin (Pre-Docked)) 1,000 mg IVPB Q24H [facility]; Protocol Laboratory Results - last 24 hr 11/09/19 11/09/19 11/09/19 06:45 12:12 16:20 WBC RBC Hgb Hct MCV MCH MCHC RDW Plt Count MPV ESR 108 H Sodium 134 L Potassium 4.0 Chloride 100 Carbon Dioxide 27 Anion Gap 8 BUN 16.7 Creatinine 0.9 Est GFR (CKD-EPI)AfAm 68.53 Est GFR (CKD-EPI)NonAf 59.13 POC Glucometer 170 Random Glucose 126 H Hemoglobin A1c % Calcium 8.8 Phosphorus 3.8 Magnesium 2.4 Total Bilirubin 0.5 AST 13 L ALT 18 Alkaline Phosphatase 82 C-Reactive Protein 10.0 H B-Natriuretic Peptide 2806.7 H Total Protein 8.1 Albumin 2.8 L 11/09/19 11/09/19 11/09/19 16:20 18:03 22:10 WBC RBC Hgb Hct MCV MCH MCHC RDW Plt Count MPV ESR Sodium Potassium Chloride Carbon Dioxide Anion Gap BUN Creatinine Est GFR (CKD-EPI)AfAm Est GFR (CKD-EPI)NonAf POC Glucometer 191 136 Random Glucose Hemoglobin A1c % Calcium Phosphorus Magnesium Total Bilirubin AST ALT Alkaline Phosphatase C-Reactive Protein 8.0 H B-Natriuretic Peptide Total Protein Albumin 11/10/19 11/10/19 11/10/19 06:05 06:05 06:05 WBC 8.3 RBC 3.33 L Hgb 8.4 L Hct 25.6 L MCV 77.0 L MCH 25.2 L MCHC 32.8 RDW 16.1 H Plt Count 306 MPV 7.6 ESR Sodium 134 L Potassium 4.0 Chloride 98 Carbon Dioxide 29 Anion Gap 7 L BUN 22.4 H Creatinine 1.1 Est GFR (CKD-EPI)AfAm 53.77 Est GFR (CKD-EPI)NonAf 46.39 POC Glucometer Random Glucose 191 H Hemoglobin A1c % 7.7 H Calcium 8.5 Phosphorus 5.1 H Magnesium 2.1 Total Bilirubin AST ALT Alkaline Phosphatase C-Reactive Protein B-Natriuretic Peptide Total Protein Albumin 11/10/19 06:05 WBC RBC Hgb Hct MCV MCH MCHC RDW Plt Count MPV ESR Sodium Potassium Chloride Carbon Dioxide Anion Gap BUN Creatinine Est GFR (CKD-EPI)AfAm Est GFR (CKD-EPI)NonAf POC Glucometer 193 Random Glucose Hemoglobin A1c % Calcium Phosphorus Magnesium Total Bilirubin AST ALT Alkaline Phosphatase C-Reactive Protein B-Natriuretic Peptide Total Protein Albumin Microbiology 11/08/19 19:24 Wound Gram Stain - Final 11/08/19 19:24 Wound Wound Culture - Preliminary Group D Strep Or Entero Coccus Beta Hemolytic Strep 11/08/19 23:36 Urine - Urine - Catheterized Urine Culture - Final NO GROWTH OBTAINED 11/08/19 18:05 Blood - Peripheral Venous Blood Culture - Preliminary NO GROWTH OBTAINED AFTER 24 HOURS, INCUBATION TO CONTINUE FOR 4 DAYS. 11/08/19 18:10 Blood - Peripheral Venous Blood Culture - Preliminary NO GROWTH OBTAINED AFTER 24 HOURS, INCUBATION TO CONTINUE FOR 4 DAYS. ASSESSMENT AND PLAN: 84 yof with PMHx of diastolic HF, chronic Right foot wound, HTN, HLD, CVA, asthma, depression, anxiety, insomnia, IDDM admitted with right foot pain/ swelling, and 1 episode of hematochezia last week -RLE wound infection/cellulitis, r/o osteomyelitis -Acute on chronic diastolic heart failure exacerbation -?Lower GI bleed -IDDM -HTN -HLD -Asthma -Depression -Anxiety -Insomnia Plan: Podiatry/ID input noted ESR/CRP noted Zosyn/vancomcyin. Follow up MRI RLE. 84 yof with PMHx of diastolic HF, chronic Right foot wound, HTN, HLD, CVA, asthma, depression, anxiety, insomnia, IDDM admitted with right foot pain/ swelling, and 1 episode of hematochezia last week -RLE wound infection/cellulitis, r/o osteomyelitis -Acute on chronic diastolic heart failure exacerbation -?lower GI bleed -PAD -IDDM -HTN -HLD -Asthma -Depression -Anxiety -Insomnia Plan: Podiatry/ID input noted ESR/CRP noted zosyn/vancomcyin. Follow up MRI RLE. Volume status improved Change lasix to 40 mg IV daily Strict I/Os and daily weights. Transition to PO in 24 hours if doing well. Monitor renal function. Low salt diet counseling. GI input noted. h/h stable, fobt neg. Outpatient follow up once active medical issues resolve unless new bleed concerns inhouse. PPI daily. Patient with known h/o PAD, no active concerns. For follow up with Dr. matson outpatient. WIll consult inhouse any intervention planned. Plavix with outpatient follow up. levothyroxine/losartan/amlodipine/statin DVTPPX Lovenox Dispo pending above w/u and clinical improvement.
--- NOTE | 2019-11-10 11:44 | CONSULT ---
Consult Consult Specialty:: Vascular Surgery - History of Present Illness History of Present Illness: 84 year old woman with DM, PAD and non-healing wound of right foot for >6 months. [facility] Duplex in May showed severe tibial disease. Patient now admitted with increased pain and purulent drainage from right foot wound. 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: Yes: Peripheral Neuropathy, Other (cataract) Cardio/Vascular: Yes: HTN Gastrointestinal: Yes: GERD Renal/: Yes: Renal Inusuff ...: No Psych: Yes: Anxiety Endocrine: Yes: Diabetes Mellitus - Past Surgical History Past Surgical History: Yes: Cholecystectomy, - Alcohol/Substance Use Hx Alcohol Use: No History of Substance Use: reports: None - Smoking History Smoking history: Never smoked Have you smoked in the past 12 months: No - Social History Usual Living Arrangement: Alone ADL: Independent Occupation: retired History of Recent Travel: No Home Medications - Allergies Allergies/Adverse Reactions: Allergies Allergy/AdvReac Type Severity Reaction Status Date / Time shellfish derived Allergy Verified 11/08/19 17:27 - Home Medications Home Medications: Ambulatory Orders Donepezil HCl [Aricept -] 5 mg PO DAILY 08/17/17 Buspirone HCl [Buspar -] 10 mg PO BID #60 tablet 09/11/17 metFORMIN HCL [Metformin HCl] 500 mg PO BID #0 tab 09/11/17 Insulin Degludec [Tresiba] 24 unit SQ DAILY 05/27/19 Quetiapine Fumarate [Seroquel -] 25 mg PO HS 05/27/19 Trazodone HCl 150 mg PO HS 05/27/19 Losartan Potassium 100 mg PO DAILY 05/28/19 Albuterol Sulfate Inhaler - [Ventolin HFA Inhaler -] 1 - 2 inh PO QID 10/06/19 Amlodipine Besylate [Norvasc -] 5 mg PO DAILY 10/07/19 Atorvastatin Ca [Lipitor] 10 mg PO DAILY 10/07/19 Clopidogrel Bisulfate [Clopidogrel] 75 mg PO DAILY 10/07/19 Ergocalciferol (Vitamin D2) [Vitamin D2] 50,000 unit PO WEEKLY 10/07/19 Fluticasone Propionate [Flovent Hfa] 2 puff IH DAILY 10/07/19 Levothyroxine [Synthroid -] 25 mcg PO DAILY 10/07/19 Furosemide [Lasix -] 40 mg PO DAILY #30 tablet 10/10/19 Physical Exam Vital Signs: Vital Signs Temperature 98.5 F 11/10/19 10:00 Pulse Rate 83 11/10/19 10:00 Respiratory Rate 18 11/10/19 10:00 Blood Pressure 134/62 11/10/19 10:00 O2 Sat by Pulse Oximetry (%) 99 11/10/19 09:00 Edema: Yes Edema: RLE: 2+ Peripheral Pulses WNL: No (No palpable pedal pulse) Wound/Incision: Yes: Other (Right 1st metatarsal wound with local fluctuance and erythema) Labs: CBC, BMP 11/10/19 06:05 11/10/19 06:05 Problem List - Problems (1) Diabetic peripheral vascular disease Assessment/Plan: Non-healing wound of right foot with documented tibial occlusive disease. Angiogram needed to assess and treat tibial vessels to increase distal flow and aid healing of wound. I will schedule angiogram for if OR allows. 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
[2019-11-10] MEDS: PANTOPRAZOLE SOD 40 MG SUSPENSION PACKET PO SCH (16:53)
[2019-11-10] MEDS ORDERED: VANCOMYCIN 1 GM in D5W (PRE-DOCKED) 1,000 MG/250 ML IVPB SCH (17:00)
[2019-11-10] MEDS: MOMETASONE FUROATE 110 MCG/IH INHALER IH SCH (21:15)
[2019-11-10] MEDS: ATORVASTATIN CA 10 MG TABLET (FP) PO SCH (21:16)
[2019-11-10] MEDS: busPIRone HCL 10 MG TABLET (FP) PO SCH (21:16)
[2019-11-10] MEDS ORDERED: traZODone HCL 150 MG TABLET PO SCH (22:00)
[2019-11-11] MEDS ORDERED: PIPERACILLIN/TAZOBACTAM 3.375 GM VIAL IVPB ONE ×2 (02:53→09:19)
[2019-11-11] MEDS ORDERED: DEXTROSE 5%-WATER - 50 ML IVPB ONE ×2 (02:53→09:19)
[2019-11-11] MEDS: PIPERACILLIN/TAZOB 3.375 GM 3.375 GM in DEXTROSE 5%-WATER - 50 ML IVPB SCH ×2 (02:59→12:28)
[2019-11-11] MEDS: LEVOTHYROXINE NA 25 MCG TABLET (FP) PO SCH (05:59)
[2019-11-11] MEDS: INSULIN SLIDING SCALE (NOVOLOG) 1 VIAL SQ SCH ×4 (05:59→22:29)
[2019-11-11 07:16] LABS: HEMATOCRIT 25.1 % (32.4-45.2); HEMOGLOBIN 8.3 GM/dL (10.7-15.3); MCH 25.5 pg (25.7-33.7); MEAN CELL VOLUME 77.4 fl (80-96); MEAN PLT VOLUME 7.7 fl (7.5-11.1); PLATELET COUNT 348 K/MM3 (134-434); RBC 3.25 M/mm3 (3.60-5.2); RDW 15.7 % (11.6-15.6); WHITE BLOOD COUNT 7.8 K/mm3 (4.0-10.0)
[2019-11-11] MEDS ORDERED: LIDOCAINE HCL 1%, 10 MG/ML (20ML VIAL) ONE (07:24)
[2019-11-11] MEDS ORDERED: PROPOFOL 20 ML ONE ×4 (07:29→09:47)
[2019-11-11] MEDS ORDERED: HEPARIN NA (PORCINE) 5,000 UNITS/ML 1ML VIAL ONE ×3 (07:30→09:29)
[2019-11-11] MEDS ORDERED: ceFAZolin SODIUM 1 GM VIAL ONE (07:30)
[2019-11-11] MEDS ORDERED: SODIUM CHLORIDE 0.9% P/F 10 ML VIAL IJ ONE (07:30)
[2019-11-11] MEDS ORDERED: LIDOCAINE HCL/PF 2% SDV 5ML VIAL ONE (07:30)
[2019-11-11] MEDS ORDERED: DEXMEDETOMIDINE HCL 200 MCG/2 ML IVPB ONE (07:37)
[2019-11-11 07:42] LABS: BLOOD UREA NITROGEN 22.8 mg/dL (7-18); CALCIUM 8.7 mg/dL (8.5-10.1); CREATININE 1.1 mg/dL (0.55-1.3)
[2019-11-11] MEDS ORDERED: HYDROCORTISONE SOD SUCCINATE 2 ML ONE (08:14)
[2019-11-11] MEDS ORDERED: LIDOCAINE HCL 1%, 10 MG/ML (20ML VIAL) NR ONE ×2 (08:15)
[2019-11-11] MEDS ORDERED: NITROGLYCERIN 50 MG/10 ML VIAL IVPB ONE (09:09)
[2019-11-11] MEDS ORDERED: ESMOLOL HCL 100,000 MCG/10 ML VIAL ONE (09:41)
[2019-11-11] MEDS ORDERED: PROTAMINE SULFATE 50 MG/5 ML VIAL ONE (10:00)
[2019-11-11] MEDS ORDERED: DONEPEZIL HCL 5 MG TABLET (FP) PO SCH (10:00)
[2019-11-11] MEDS ORDERED: FUROSEMIDE 40 MG/4 ML INJECTABLE VIAL IVPUSH SCH (10:00)
--- NOTE | 2019-11-11 10:27 | OP ---
Operative Note - Note: Operative Date: 11/11/19 Pre-Operative Diagnosis: Non-healing wound right foot. Operation: Revascularization right anterior tibial with atherectomy and angioplasty Findings: Patent aorta, iliacs, femorals, right popliteal. Severe stenosis of proximal RAFAELA >90%. Patent distal RAFAELA with runoff to foot via DPA. 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 Peroneal occluded distal to origin with no reconstitution. Completion angiogram with patent RAFAELA, focal stenosis in mid RAFAELA 50% Implants: Mynx closure device Post-Operative Diagnosis: Same as Pre-op Surgeon: Luis Velez Anesthesiologist/MICROSTRATEGY ARCHITECT: Gerardo Lewis Anesthesia: General Estimated Blood Loss (mls): 10
[2019-11-11] MEDS ORDERED: ALBUTEROL SO4 8 GM HFA INHALER IH PRN (10:40)
[2019-11-11] MEDS ORDERED: ASPIRIN 81 MG CHEWABLE TABLETS PO STA (10:40)
[2019-11-11] MEDS ORDERED: ASPIRIN 81 MG CHEWABLE TABLETS ONE (10:45)
[2019-11-11] MEDS ORDERED: LACTATED RINGERS SOLUTION 1,000 ML/1,000 ML INFUS.BAG IV SCH (11:30)
[2019-11-11] MEDS ORDERED: FUROSEMIDE 40 MG/4 ML INJECTABLE VIAL IVPUSH ONE (12:00)
[2019-11-11] MEDS ORDERED: amLODIPine BESYLATE 5 MG TABLET (FP) PO ONE (12:15)
--- NOTE | 2019-11-11 12:22 | PN ---
Physical Exam: SUBJECTIVE: Patient seen and examined at the bedside in OR holding. Patient states that her R foot continues to have pain but is improved from previous days. Denies any drainage, purulence, bleeding from the wound. Denies cp, sob, abd pain, n/v/c/d, fever, chills, headaches, dizziness, lightheadedness, numbness, tingling. OBJECTIVE: Vital Signs Period Temp Pulse Resp BP Sys/Persaud Pulse Ox Last 24 Hr 97.2 F-99 F 82-94 15-25 128-159/61-86 95-99 GENERAL: The patient is awake, alert, and fully oriented, in no acute distress. HEAD: Normal with no signs of trauma. EYES: PERRL, extraocular movements intact, sclera anicteric, conjunctiva clear. ENT: Oropharynx clear without exudates, moist mucous membranes. NECK: Trachea midline, full range of motion, supple. LUNGS: Noted improved crackles bilaterally. No wheezes, no accessory muscle use. HEART: Regular rate and rhythm, S1, S2 without murmur, rub. ABDOMEN: Soft, nontender, nondistended, normoactive bowel sounds, no guarding, no rebound, no masses. EXTREMITIES: pulses poorly palpated, warm, well-perfused, 2+ edema up to the ankle on the R side. Ulcer noted on the R medial portion of the foot, non- draining, non-purulent, dry NEUROLOGICAL: Cranial nerves II through XII grossly intact. 5/5 muscle strength , upper and lower extremities, bilaterally. PSYCH: Normal mood, normal affect. SKIN: Warm, dry, normal turgor. Laboratory Results - last 24 hr 11/10/19 11/10/19 11/11/19 16:09 21:13 05:16 WBC RBC Hgb Hct MCV MCH MCHC RDW Plt Count MPV Sodium Potassium Chloride Carbon Dioxide Anion Gap BUN Creatinine Est GFR (CKD-EPI)AfAm Est GFR (CKD-EPI)NonAf POC Glucometer 248 216 202 Random Glucose Calcium Blood Type Antibody Screen 11/11/19 11/11/19 11/11/19 06:33 06:33 08:37 WBC 7.8 RBC 3.25 L Hgb 8.3 L Hct 25.1 L MCV 77.4 L MCH 25.5 L MCHC 33.0 RDW 15.7 H Plt Count 348 MPV 7.7 Sodium 135 L Potassium 4.0 Chloride 100 Carbon Dioxide 30 Anion Gap 4 L BUN 22.8 H Creatinine 1.1 Est GFR (CKD-EPI)AfAm 53.77 Est GFR (CKD-EPI)NonAf 46.39 POC Glucometer Random Glucose 214 H Calcium 8.7 Blood Type A POSITIVE Antibody Screen Negative 11/11/19 11:53 WBC RBC Hgb Hct MCV MCH MCHC RDW Plt Count MPV Sodium Potassium Chloride Carbon Dioxide Anion Gap BUN Creatinine Est GFR (CKD-EPI)AfAm Est GFR (CKD-EPI)NonAf POC Glucometer 242 Random Glucose Calcium Blood Type Antibody Screen Active Medications Generic Name Dose Route Start Last Admin Trade Name Freq PRN Reason Stop Dose Admin Albuterol Sulfate 1 puff 11/11/19 10:40 Ventolin Hfa Inhaler - IH Q6H PRN SHORTNESS OF BREATH Amlodipine Besylate 5 mg 11/12/19 10:00 Norvasc - PO DAILY [facility] Aspirin 81 mg 11/12/19 10:00 Asa - PO DAILY [facility] Atorvastatin Calcium 10 mg 11/11/19 22:00 Lipitor - PO HS [facility] Buspirone HCl 10 mg 11/11/19 22:00 Buspar - PO BID [facility] Buspirone HCl 10 mg 11/11/19 12:30 Buspar - PO 11/11/19 12:31 ONCE ONE Clopidogrel Bisulfate 75 mg 11/12/19 10:00 Plavix - PO DAILY [facility] Clopidogrel Bisulfate 75 mg 11/11/19 12:30 Plavix - PO 11/11/19 12:31 ONCE ONE Donepezil HCl 5 mg 11/12/19 10:00 Aricept - PO DAILY [facility] Enoxaparin Sodium 40 mg 11/12/19 10:00 Lovenox - SQ DAILY [facility] Furosemide 40 mg 11/12/19 10:00 Lasix Injection - IVPUSH DAILY [facility] Piperacillin Sod/Tazobactam 50 mls @ 100 mls/hr 11/11/19 18:00 Sod 3.375 gm/ Dextrose IVPB Q8H-IV [facility] Protocol Lactated Ringer's 1,000 ml in 1,000 mls @ 50 mls/hr 11/11/19 11:30 Lactated Ringers Solution IV ASDIR [facility] Insulin Aspart 1 vial 11/11/19 11:00 Novolog Vial Sliding Scale - SQ ACHS [facility] Protocol Levothyroxine Sodium 25 mcg 11/12/19 07:00 Synthroid - PO DAILY@0700 [facility] Losartan Potassium 100 mg 11/12/19 10:00 Cozaar - PO DAILY [facility] Losartan Potassium 100 mg 11/11/19 12:30 Cozaar - PO 11/11/19 12:31 ONCE ONE Mometasone Furoate 1 puff 11/11/19 22:00 Asmanex 110mcg - IH HS [facility] Pantoprazole Sodium 40 mg 11/11/19 10:45 Protonix - PO DAILY [facility] Trazodone HCl 150 mg 11/11/19 22:00 Desyrel - PO HS [facility] Vancomycin HCl 1,000 mg 11/11/19 17:00 Vancomycin (Pre-Docked) IVPB Q24H [facility] Protocol ASSESSMENT/PLAN: Lynne Pierce is an 84 year old female with a past medical history of HTN, HLD, CVA, asthma, depression, anxiety, insomnia, IDDM, chronic R foot wound, presents with right foot wound pain and admitted for R foot cellulitis. Cellulitis - no leukocytosis, pt afebrile - wound cultures with diphtheroid/cornybacterium (normal skin say) and strep agalactiae - Foot XR with no definitive osteomyelitis - foot MRI pending - start ceftriaxone as per ID - podiatry recs appreciated, if drainage occurs will add dressings - ID consulted, recs appreciated - elevated ESR/CRP - went for angiogram with vascular surgery today noting 90% stenosis of R anterior tibial artery and underwent revascularization of right anterior tibial artery with atherectomy and angioplasty - continue Plavix after angioplasty - will require proper shoes to avoid further damage to feet Acute on Chronic HFpEF - BNP 2562 - Lasix 40 IV daily, can switch to PO likely tomorrow - strict I/Os - daily weights - CXR on admission with bilateral effusions Microcytic anemia - iron studies noting an iron deficiency anemia - FOBT negative - GI consulted, recs appreciated - Upper GI series when patient stable - will follow with GI as outpatient Asthma - Duonebs - albuterol prn HLD - home Lipitor HTN - home amlodipine Hx of CVA - on Plavix DM - ISS ACHS - BGM ACHS - hold oral antiglycemics - A1c 7.7 Hypothyroid - home synthroid Prophylaxis - Lovenox 40 mg subq daily - Protonix F/E/N - no standing fluids, encourage PO intake - continue to monitor electrolytes and replete as necessary - diabetic/low sodium diet Dispo - continue to monitor on Med-surg Visit type - Emergency Visit Emergency Visit: Yes ED Registration Date: 11/08/19 Care time: The patient presented to the Emergency Department on the above date and was hospitalized for further evaluation of their emergent condition. - New Patient This patient is new to me today: No - Critical Care Critical Care patient: No
[2019-11-11] MEDS: PANTOPRAZOLE 40 MG TABLET (FP) PO SCH (12:26)
[2019-11-11] MEDS ORDERED: busPIRone HCL 10 MG TABLET (FP) PO ONE (12:30)
[2019-11-11] MEDS ORDERED: LOSARTAN POTASSIUM 50 MG TABLET (FP) PO ONE (12:30)
[2019-11-11] MEDS ORDERED: CLOPIDOGREL BISULFATE 75 MG TABLET (FP) PO ONE (12:30)
[2019-11-11] MEDS ORDERED: ONDANSETRON 4 MG/2 ML VIAL IVPUSH PRN (12:34)
[2019-11-11] MEDS: busPIRone HCL 10 MG TABLET (FP) PO SCH ×2 (12:35→22:11)
[2019-11-11] MEDS: amLODIPine BESYLATE 5 MG TABLET (FP) PO SCH (12:36)
[2019-11-11] MEDS: LOSARTAN POTASSIUM 50 MG TABLET (FP) PO SCH (12:36)
[2019-11-11] MEDS: CLOPIDOGREL BISULFATE 75 MG TABLET (FP) PO SCH (12:36)
[2019-11-11] MEDS: PANTOPRAZOLE SOD 40 MG SUSPENSION PACKET PO SCH (12:36)
--- NOTE | 2019-11-11 14:02 | PN ---
Teaching Attending Note Name of Resident: Joselo Chan ATTENDING PHYSICIAN STATEMENT I saw and evaluated the patient. I reviewed the resident's note and discussed the case with the resident. I agree with the resident's findings and plan as documented with exceptions below. SUBJECTIVE: Patient seen and examined. right foot pain improved,breathing improved, no new complaints. OBJECTIVE: Vital Signs Period Temp Pulse Resp BP Sys/Persaud Pulse Ox Last 24 Hr 97.2 F-99 F 82-94 15-25 128-159/61-86 95-99 Intake & Output 11/08/19 11/09/19 11/10/19 11/11/19 23:59 23:59 23:59 23:59 Intake Total 0 400 850 Output Total 10 Balance 0 400 840 Weight 176 lb 184 lb 14.4 oz 179 lb 3.2 oz 179 lb 1.6 oz General: sitting in bed,n o acute distress Chest: basilar rales, markedly improved exam Abdomen:Soft, obese, NT Extremities: Right DP/PT pulses palpated, right medial great toe ulcer with scabbing, some erythema with tenderness over lateral aspect of wound, no pus expressed, improved right foot edema Home Medications Medication Instructions Recorded Donepezil HCl [Aricept -] 5 mg PO DAILY 08/17/17 Buspirone HCl [Buspar -] 10 mg PO BID #60 tablet 09/11/17 metFORMIN HCL [Metformin HCl] 500 mg PO BID #0 tab 09/11/17 Insulin Degludec [Tresiba] 24 unit SQ DAILY 05/27/19 Quetiapine Fumarate [Seroquel -] 25 mg PO HS 05/27/19 Trazodone HCl 150 mg PO HS 05/27/19 Losartan Potassium 100 mg PO DAILY 05/28/19 Albuterol Sulfate Inhaler - 1 - 2 inh PO QID 10/06/19 [Ventolin HFA Inhaler -] Amlodipine Besylate [Norvasc -] 5 mg PO DAILY 10/07/19 Atorvastatin Ca [Lipitor] 10 mg PO DAILY 10/07/19 Clopidogrel Bisulfate [Clopidogrel] 75 mg PO DAILY 10/07/19 Ergocalciferol (Vitamin D2) 50,000 unit PO WEEKLY 10/07/19 [Vitamin D2] Fluticasone Propionate [Flovent 2 puff IH DAILY 10/07/19 Hfa] Levothyroxine [Synthroid -] 25 mcg PO DAILY 10/07/19 Furosemide [Lasix -] 40 mg PO DAILY #30 tablet 10/10/19 Active Medications Albuterol Sulfate (Ventolin Hfa Inhaler -) 1 puff IH Q6H PRN PRN Reason: SHORTNESS OF BREATH Amlodipine Besylate (Norvasc -) 5 mg PO DAILY [facility] Aspirin (Asa -) 81 mg PO DAILY [facility] Atorvastatin Calcium (Lipitor -) 10 mg PO HS [facility] Buspirone HCl (Buspar -) 10 mg PO BID [facility] Clopidogrel Bisulfate (Plavix -) 75 mg PO DAILY [facility] Donepezil HCl (Aricept -) 5 mg PO DAILY [facility] Enoxaparin Sodium (Lovenox -) 40 mg SQ DAILY [facility] Fentanyl (Sublimaze Injection -) 25 mcg IVPUSH [id number] PRN PRN Reason: PAIN-PACU ORDER X 4 DOSES ONLY Stop: 11/12/19 12:33 Furosemide (Lasix Injection -) 40 mg IVPUSH DAILY [facility] Piperacillin Sod/Tazobactam (Sod 3.375 gm/ Dextrose) 50 mls @ 100 mls/hr IVPB Q8H-IV [facility]; Protocol Lactated Ringer's (Lactated Ringers Solution) 1,000 ml in 1,000 mls @ 50 mls/ hr IV ASDIR [facility] Insulin Aspart (Novolog Vial Sliding Scale -) 1 vial SQ ACHS [facility]; Protocol Last Admin: 11/11/19 12:22 Dose: 4 units Levothyroxine Sodium (Synthroid -) 25 mcg PO DAILY@0700 [facility] Losartan Potassium (Cozaar -) 100 mg PO DAILY [facility] Mometasone Furoate (Asmanex 110mcg -) 1 puff IH HS [facility] Ondansetron HCl (Zofran Injection) 4 mg IVPUSH Q6H PRN PRN Reason: NAUSEA AND/OR VOMITING Stop: 11/12/19 12:33 Pantoprazole Sodium (Protonix -) 40 mg PO DAILY [facility] Last Admin: 11/11/19 12:26 Dose: 40 mg Trazodone HCl (Desyrel -) 150 mg PO HS [facility] Vancomycin HCl (Vancomycin (Pre-Docked)) 1,000 mg IVPB Q24H [facility]; Protocol Laboratory Results - last 24 hr 11/10/19 11/10/19 11/11/19 16:09 21:13 05:16 WBC RBC Hgb Hct MCV MCH MCHC RDW Plt Count MPV Sodium Potassium Chloride Carbon Dioxide Anion Gap BUN Creatinine Est GFR (CKD-EPI)AfAm Est GFR (CKD-EPI)NonAf POC Glucometer 248 216 202 Random Glucose Calcium Blood Type Antibody Screen 11/11/19 11/11/19 11/11/19 06:33 06:33 08:37 WBC 7.8 RBC 3.25 L Hgb 8.3 L Hct 25.1 L MCV 77.4 L MCH 25.5 L MCHC 33.0 RDW 15.7 H Plt Count 348 MPV 7.7 Sodium 135 L Potassium 4.0 Chloride 100 Carbon Dioxide 30 Anion Gap 4 L BUN 22.8 H Creatinine 1.1 Est GFR (CKD-EPI)AfAm 53.77 Est GFR (CKD-EPI)NonAf 46.39 POC Glucometer Random Glucose 214 H Calcium 8.7 Blood Type A POSITIVE Antibody Screen Negative 11/11/19 11:53 WBC RBC Hgb Hct MCV MCH MCHC RDW Plt Count MPV Sodium Potassium Chloride Carbon Dioxide Anion Gap BUN Creatinine Est GFR (CKD-EPI)AfAm Est GFR (CKD-EPI)NonAf POC Glucometer 242 Random Glucose Calcium Blood Type Antibody Screen Microbiology 11/08/19 19:24 Wound Gram Stain - Final 11/08/19 19:24 Wound Wound Culture - Final Diphtheroid/Corynebacterium Strep Agalactiae Group B 11/08/19 18:05 Blood - Peripheral Venous Blood Culture - Preliminary NO GROWTH OBTAINED AFTER 48 HOURS, INCUBATION TO CONTINUE FOR 3 DAYS. 11/08/19 18:10 Blood - Peripheral Venous Blood Culture - Preliminary NO GROWTH OBTAINED AFTER 48 HOURS, INCUBATION TO CONTINUE FOR 3 DAYS. 11/08/19 23:36 Urine - Urine - Catheterized Urine Culture - Final NO GROWTH OBTAINED ASSESSMENT AND PLAN: 84 yof with PMHx of diastolic HF, chronic Right foot wound, HTN, HLD, CVA, asthma, depression, anxiety, insomnia, IDDM admitted with right foot pain/ swelling, and 1 episode of hematochezia last week -RLE wound infection/cellulitis, r/o osteomyelitis -Acute on chronic diastolic heart failure exacerbation, suspect from dietary non compliance -PAD/Severe stenosis of proximal right RAFAELA s/p angiography/angioplasty 11/11 -?1 episode of hematochezia, none inhouse -IDDM -HTN -HLD -Asthma -Depression -Anxiety -Insomnia Plan: Vascular surgery input noted. ASA/plavix. Podiatry/ID input noted. Wound cx noted. Blood cx neg so far. Zosyn/vancomcyn ESR/CRP noted Follow up MRI RLE. Volume status improved Given hydration ba-operatively, will continue IV lasix today, Transition to PO in 24 hours. Strict I/Os and daily weights. Suspect dietary non compliance. Low salt diet counseling. Nutrition consult. GI input noted. h/h stable, FOBT neg. No bleed or concerns inhouse. Per Dr. Velez, plan to continue ASA/plavix. Risk of withholding ASA/plavix outweigh benefits currently given PAD with recent intervention and no active bleed concerns. PPI daily. Continue levothyroxine/losartan/amlodipine/statin DVTPPX Lovenox Dispo in 1-2 days pending MRI and plan for abx/podiatry intervention. Discussed with patient and family at bedside in detail, all questions answered.
[2019-11-11] MEDS ORDERED: INSULIN (LEVEMIR) 100 UNITS/ML UNITS SQ ONE (14:06)
--- NOTE | 2019-11-11 14:30 | PN ---
Progress Note (short form) - Note Progress Note: s/p angiogram and angioplasty today feels well per daughter still dosen't wear the right shoes for her bunion! Vital Signs Period Temp Pulse Resp BP Sys/Persaud Pulse Ox Last 24 Hr 97.2 F-99 F 82-94 15-25 128-159/61-82 95-99 cor-rrr lungs clear abd soft,nt ext erythema and swelling of the right foot, callous is dry today CBC, BMP 11/11/19 06:33 11/11/19 06:33 Laboratory Tests 04/29/19 11/09/19 11/09/19 13:35 16:20 16:20 ESR 108 H Hemoglobin A1c % 10.4 H C-Reactive Protein 8.0 H Microbiology 11/08/19 19:24 Wound Gram Stain - Final 11/08/19 19:24 Wound Wound Culture - Final Diphtheroid/Corynebacterium Strep Agalactiae Group B 11/08/19 18:05 Blood - Peripheral Venous Blood Culture - Preliminary NO GROWTH OBTAINED AFTER 48 HOURS, INCUBATION TO CONTINUE FOR 3 DAYS. 11/08/19 18:10 Blood - Peripheral Venous Blood Culture - Preliminary NO GROWTH OBTAINED AFTER 48 HOURS, INCUBATION TO CONTINUE FOR 3 DAYS. 11/08/19 23:36 Urine - Urine - Catheterized Urine Culture - Final NO GROWTH OBTAINED a/p s/p angioplasty today RLE cellulitis-r/o small abscess (superficial) r/o osteomyelitis MRI foot pending switch to rocephin (group B strep) Problem List - Problems (1) Cellulitis Code(s): L03.90 - CELLULITIS, UNSPECIFIED (2) Diabetes mellitus Code(s): E11.9 - TYPE 2 DIABETES MELLITUS WITHOUT COMPLICATIONS
[2019-11-11] MEDS ORDERED: DEXTROSE 5%-WATER 100 ML IVPB ONE (14:41)
--- NOTE | 2019-11-11 15:04 | PN ---
Progress Note, Physician History of Present Illness: chronic wound right foot secondary to hallux valgus and ill fitting shoe gear - Current Medication List Current Medications: Active Medications Albuterol Sulfate (Ventolin Hfa Inhaler -) 1 puff IH Q6H PRN PRN Reason: SHORTNESS OF BREATH Amlodipine Besylate (Norvasc -) [address] [facility] Aspirin (Asa -) [address] [facility] Atorvastatin Calcium (Lipitor -) [address] [facility] Buspirone HCl (Buspar -) [address] [facility] Clopidogrel Bisulfate (Plavix -) [address] [facility] Donepezil HCl (Aricept -) [address] [facility] Enoxaparin Sodium (Lovenox -) [address] [facility] Furosemide (Lasix Injection -) [address] [facility] Ceftriaxone Sodium 2 gm/ (Dextrose) 100 mls @ 100 mls/hr IVPB DAILY [facility]; Protocol Insulin Aspart (Novolog Vial Sliding Scale -) [address] [facility]; Protocol Last Admin: 11/11/19 12:22 Dose: 4 units Insulin Detemir (Levemir Vial) [address] [facility] Levothyroxine Sodium (Synthroid -) 25 mcg PO DAILY@0700 [facility] Losartan Potassium (Cozaar -) [address] [facility] Mometasone Furoate (Asmanex 110mcg -) [address] [facility] Ondansetron HCl (Zofran Injection) 4 mg IVPUSH Q6H PRN PRN Reason: NAUSEA AND/OR VOMITING Stop: 11/12/19 12:33 Pantoprazole Sodium (Protonix -) [address] [facility] Last Admin: 11/11/19 12:26 Dose: 40 mg Trazodone HCl (Desyrel -) [address] [facility] - Objective Vital Signs: Vital Signs Temperature 98.0 F 11/11/19 12:51 Pulse Rate 82 11/11/19 12:51 Respiratory Rate 18 11/11/19 12:51 Blood Pressure 140/75 11/11/19 12:51 O2 Sat by Pulse Oximetry (%) 99 11/11/19 12:51 Extremities: Yes: Other (+hav right, +resolved wound at this time, +mild tender at this time at 1st mpj) Labs: CBC, BMP 11/11/19 06:33 11/11/19 06:33 INR, PTT INR 1.44 (0.83-1.09) H 11/08/19 20:00 Assessment/Plan om? Awaiting MRI result. Needs Diabetic shoe gear and or repair of 1st mpj right. Discussed with both daughters who were present. Tx plan after MRI results are back. Will follow.
[2019-11-11] MEDS: CEFTRIAXONE 2 GM in DEXTROSE 5%-WATER 100 ML IVPB SCH (15:21)
[2019-11-11] MEDS ORDERED: VANCOMYCIN 1 GM in D5W (PRE-DOCKED) 1,000 MG/250 ML IVPB SCH (17:00)
[2019-11-11] MEDS ORDERED: PIPERACILLIN/TAZOB 3.375 GM 3.375 GM in DEXTROSE 5%-WATER - 50 ML IVPB SCH (18:00)
[2019-11-11] MEDS ORDERED: traZODone HCL 150 MG TABLET PO SCH (22:00)
[2019-11-11] MEDS ORDERED: PT OWN MED DRAWER 7, Y5N ONE (22:10)
[2019-11-11] MEDS: ATORVASTATIN CA 10 MG TABLET (FP) PO SCH (22:10)
[2019-11-11] MEDS: MOMETASONE FUROATE 110 MCG/IH INHALER IH SCH (22:14)
[2019-11-12] MEDS: ACETAMINOPHEN 325 MG TABLET (FP) PO PRN (03:49)
[2019-11-12] MEDS: INSULIN SLIDING SCALE (NOVOLOG) 1 VIAL SQ SCH ×4 (06:50→22:06)
[2019-11-12] MEDS: INSULIN (LEVEMIR) 100 UNITS/ML UNITS SQ SCH ×2 (06:50→10:52)
[2019-11-12] MEDS: LEVOTHYROXINE NA 25 MCG TABLET (FP) PO SCH (06:51)
[2019-11-12 08:18] LABS: HEMATOCRIT 25.8 % (32.4-45.2); HEMOGLOBIN 8.4 GM/dL (10.7-15.3); MCH 25.3 pg (25.7-33.7); MCHC 32.5 g/dl (32.0-36.0); MEAN CELL VOLUME 77.9 fl (80-96); MEAN PLT VOLUME 7.6 fl (7.5-11.1); PLATELET COUNT 376 K/MM3 (134-434); RBC 3.31 M/mm3 (3.60-5.2); WHITE BLOOD COUNT 8.7 K/mm3 (4.0-10.0)
[2019-11-12 08:32] LABS: BLOOD UREA NITROGEN 30.7 mg/dL (7-18); CALCIUM 8.7 mg/dL (8.5-10.1); CREATININE 1.5 mg/dL (0.55-1.3); MAGNESIUM 2.3 mg/dL (1.8-2.4); POTASSIUM 3.7 mmol/L (3.5-5.1)
[2019-11-12] MEDS ORDERED: DEXTROSE 5%-WATER 100 ML IVPB ONE (09:18)
[2019-11-12] MEDS: DONEPEZIL HCL 5 MG TABLET (FP) PO SCH (09:24)
[2019-11-12] MEDS: CLOPIDOGREL BISULFATE 75 MG TABLET (FP) PO SCH (09:24)
[2019-11-12] MEDS: PANTOPRAZOLE 40 MG TABLET (FP) PO SCH (09:24)
[2019-11-12] MEDS: amLODIPine BESYLATE 5 MG TABLET (FP) PO SCH (09:30)
[2019-11-12] MEDS: CEFTRIAXONE 2 GM in DEXTROSE 5%-WATER 100 ML IVPB SCH (09:30)
[2019-11-12] MEDS: LOSARTAN POTASSIUM 50 MG TABLET (FP) PO SCH (09:30)
[2019-11-12] MEDS: busPIRone HCL 10 MG TABLET (FP) PO SCH ×2 (09:30→21:56)
[2019-11-12] MEDS: ASPIRIN 81 MG CHEWABLE TABLETS PO SCH (09:30)
[2019-11-12] MEDS ORDERED: ENOXAPARIN NA (PORCINE) 40 MG/0.4 ML DISP.SYRIN SQ SCH (10:00)
[2019-11-12] MEDS ORDERED: FUROSEMIDE 40 MG/4 ML INJECTABLE VIAL IVPUSH SCH (10:00)
[2019-11-12 12:44] VITALS: BMI 32.4
--- NOTE | 2019-11-12 13:25 | PN ---
Physical Exam: SUBJECTIVE: Patient seen and examined at the bedside. Patient states that her foot is doing better but still has some pain and swelling. She denies cp, sob, abd pain, n/v/c/d, fever, chills, weakness, numbness, tingling, dizziness, lightheadedness. OBJECTIVE: Vital Signs Period Temp Pulse Resp BP Sys/Persaud Pulse Ox Last 24 Hr 97.9 F-98.7 F 79-91 18-20 123-143/68-71 98-98 GENERAL: The patient is awake, alert, and fully oriented, in no acute distress. HEAD: Normal with no signs of trauma. EYES: PERRL, extraocular movements intact, sclera anicteric, conjunctiva clear. ENT: Oropharynx clear without exudates, moist mucous membranes. NECK: Trachea midline, full range of motion, supple. LUNGS: Noted improved crackles bilaterally. No wheezes, no accessory muscle use. HEART: Regular rate and rhythm, S1, S2 without murmur, rub. ABDOMEN: Soft, nontender, nondistended, normoactive bowel sounds, no guarding, no rebound, no masses. EXTREMITIES: pulses 2+ bilaterally after pressing through edema on R, warm, well -perfused, 2+ edema up to the ankle on the R side. Ulcer noted on the R medial portion of the foot, expression of purulent material, non-sanguineous NEUROLOGICAL: Cranial nerves II through XII grossly intact. 5/5 muscle strength , upper and lower extremities, bilaterally. PSYCH: Normal mood, normal affect. SKIN: Warm, dry, normal turgor. Laboratory Results - last 24 hr 11/11/19 11/11/19 11/12/19 17:15 22:27 05:19 WBC RBC Hgb Hct MCV MCH MCHC RDW Plt Count MPV Sodium Potassium Chloride Carbon Dioxide Anion Gap BUN Creatinine Est GFR (CKD-EPI)AfAm Est GFR (CKD-EPI)NonAf POC Glucometer 341 256 190 Random Glucose Calcium Magnesium 11/12/19 11/12/19 11/12/19 07:15 07:15 11:47 WBC 8.7 RBC 3.31 L Hgb 8.4 L Hct 25.8 L MCV 77.9 L MCH 25.3 L MCHC 32.5 RDW 16.0 H Plt Count 376 MPV 7.6 Sodium 135 L Potassium 3.7 Chloride 98 Carbon Dioxide 27 Anion Gap 10 BUN 30.7 H Creatinine 1.5 H Est GFR (CKD-EPI)AfAm 36.95 Est GFR (CKD-EPI)NonAf 31.88 POC Glucometer 296 Random Glucose 250 H Calcium 8.7 Magnesium 2.3 Active Medications Generic Name Dose Route Start Last Admin Trade Name Freq PRN Reason Stop Dose Admin Acetaminophen 325 mg 11/12/19 02:52 11/12/19 03:49 Tylenol - PO 325 mg Q6H PRN Administration PAIN LEVEL 4 - 6 Albuterol Sulfate 1 puff 11/11/19 10:40 Ventolin Hfa Inhaler - IH Q6H PRN SHORTNESS OF BREATH Amlodipine Besylate 5 mg 11/12/19 10:00 11/12/19 09:30 Norvasc - PO 5 mg DAILY [facility] Administration Aspirin 81 mg 11/12/19 10:00 11/12/19 09:30 Asa - PO 81 mg DAILY [facility] Administration Atorvastatin Calcium 10 mg 11/11/19 22:00 11/11/19 22:10 Lipitor - PO 10 mg HS [facility] Administration Buspirone HCl 10 mg 11/11/19 22:00 11/12/19 09:30 Buspar - PO 10 mg BID [facility] Administration Clopidogrel Bisulfate 75 mg 11/12/19 10:00 11/12/19 09:24 Plavix - PO 75 mg DAILY [facility] Administration Donepezil HCl 5 mg 11/12/19 10:00 11/12/19 09:24 Aricept - PO 5 mg DAILY [facility] Administration Enoxaparin Sodium 40 mg 11/12/19 10:00 11/12/19 09:25 Lovenox - SQ 40 mg DAILY [facility] Administration Ceftriaxone Sodium 2 gm/ 100 mls @ 100 mls/hr 11/11/19 14:45 11/12/19 09:30 Dextrose IVPB 100 mls/hr DAILY [facility] Administration Protocol Insulin Aspart 1 vial 11/11/19 11:00 11/12/19 11:59 Novolog Vial Sliding Scale - SQ 6 units ACHS [facility] Administration Protocol Insulin Detemir 10 units 11/12/19 07:00 11/12/19 10:52 Levemir Vial SQ Not Given DAILY [facility] Levothyroxine Sodium 25 mcg 11/12/19 07:00 11/12/19 06:51 Synthroid - PO 25 mcg DAILY@0700 [facility] Administration Losartan Potassium 100 mg 11/12/19 10:00 11/12/19 09:30 Cozaar - PO 100 mg DAILY [facility] Administration Mometasone Furoate 1 puff 11/11/19 22:00 11/11/19 22:14 Asmanex 110mcg - IH 1 puff HS [facility] Administration Pantoprazole Sodium 40 mg 11/11/19 10:45 11/12/19 09:24 Protonix - PO 40 mg DAILY [facility] Administration Trazodone HCl 100 mg/ 150 mg 11/12/19 22:00 Trazodone HCl 50 mg PO HS [facility] ASSESSMENT/PLAN: Lynne Pierce is an 84 year old female with a past medical history of HTN, HLD, CVA, asthma, depression, anxiety, insomnia, IDDM, chronic R foot wound, presents with right foot wound pain and admitted for R foot cellulitis. Cellulitis - no leukocytosis, pt afebrile - wound cultures with diphtheroid/cornybacterium (normal skin say) and strep agalactiae - Foot XR with no definitive osteomyelitis - foot MRI noting osteomyelitis in 1st metatarsal bone, degenerative changes in first metatarsal joint with subluxation of metatarsal head - ceftriaxone as per ID - will need PICC line and outpatient antibiotics - podiatry recs appreciated, will add dressings, f/u if needing repair - ID consulted, recs appreciated - elevated ESR/CRP - went for angiogram with vascular surgery noting 90% stenosis of R anterior tibial artery and underwent revascularization of right anterior tibial artery with atherectomy and angioplasty - continue Plavix after angioplasty - will require proper shoes to avoid further damage to feet Acute on Chronic HFpEF - CXR on admission with bilateral effusions - restart home Lasix - CRE 1.5, continue to monitor - strict I/Os - daily weights - dietary consult to recommend diet for CHF Microcytic anemia - iron studies noting an iron deficiency anemia - FOBT negative - GI consulted, recs appreciated - Upper GI series when patient stable - will follow with GI as outpatient Asthma - Duonebs - albuterol prn HLD - home Lipitor HTN - home amlodipine Hx of CVA - on Plavix DM - ISS ACHS - BGM ACHS - hold oral antiglycemics - A1c 7.7 - Levemir 10 units Hypothyroid - home synthroid Prophylaxis - heparin 5000 units subq tid - Protonix F/E/N - no standing fluids, encourage PO intake - continue to monitor electrolytes and replete as necessary - diabetic/low sodium diet Dispo - continue to monitor on Med-surg Visit type - Emergency Visit Emergency Visit: Yes ED Registration Date: 11/08/19 Care time: The patient presented to the Emergency Department on the above date and was hospitalized for further evaluation of their emergent condition. - New Patient This patient is new to me today: No - Critical Care Critical Care patient: No
--- NOTE | 2019-11-12 14:03 | PN ---
Teaching Attending Note Name of Resident: Joselo Chan ATTENDING PHYSICIAN STATEMENT I saw and evaluated the patient. I reviewed the resident's note and discussed the case with the resident. I agree with the resident's findings and plan as documented with exceptions below. SUBJECTIVE: Patient seen and examined. right foot pain improved, denies any dyspnea. OBJECTIVE: Vital Signs Period Temp Pulse Resp BP Sys/Persaud Pulse Ox Last 24 Hr 97.9 F-98.7 F 79-91 18-20 123-143/68-71 98-98 Intake & Output 11/09/19 11/10/19 11/11/19 11/12/19 23:59 23:59 23:59 23:59 Intake Total 0 400 1200 0 Output Total 10 Balance 0 400 1190 0 Weight 184 lb 14.4 oz 179 lb 3.2 oz 179 lb 1.6 oz 183 lb General: sitting in bed, no acute distress Chest: almost resolved rales, markedly improved air entry, no wheezing Abdomen:Soft, obese, NT Extremities: right great toe wound boggy with minimal purulent drainage expressed, minimal erythema around, worsened edema than last evening (? dependent position), palpable DP and PT pulses Home Medications Medication Instructions Recorded Donepezil HCl [Aricept -] 5 mg PO DAILY 08/17/17 Buspirone HCl [Buspar -] 10 mg PO BID #60 tablet 09/11/17 metFORMIN HCL [Metformin HCl] 500 mg PO BID #0 tab 09/11/17 Insulin Degludec [Tresiba] 24 unit SQ DAILY 05/27/19 Quetiapine Fumarate [Seroquel -] 25 mg PO HS 05/27/19 Trazodone HCl 150 mg PO HS 05/27/19 Losartan Potassium 100 mg PO DAILY 05/28/19 Albuterol Sulfate Inhaler - 1 - 2 inh PO QID 10/06/19 [Ventolin HFA Inhaler -] Amlodipine Besylate [Norvasc -] 5 mg PO DAILY 10/07/19 Atorvastatin Ca [Lipitor] 10 mg PO DAILY 10/07/19 Clopidogrel Bisulfate [Clopidogrel] 75 mg PO DAILY 10/07/19 Ergocalciferol (Vitamin D2) 50,000 unit PO WEEKLY 10/07/19 [Vitamin D2] Fluticasone Propionate [Flovent 2 puff IH DAILY 10/07/19 Hfa] Levothyroxine [Synthroid -] 25 mcg PO DAILY 10/07/19 Furosemide [Lasix -] 40 mg PO DAILY #30 tablet 10/10/19 Active Medications Acetaminophen (Tylenol -) 325 mg PO Q6H PRN PRN Reason: PAIN LEVEL 4 - 6 Last Admin: 11/12/19 03:49 Dose: 325 mg Albuterol Sulfate (Ventolin Hfa Inhaler -) 1 puff IH Q6H PRN PRN Reason: SHORTNESS OF BREATH Amlodipine Besylate (Norvasc -) 5 mg PO DAILY [facility] Last Admin: 11/12/19 09:30 Dose: 5 mg Aspirin (Asa -) 81 mg PO DAILY [facility] Last Admin: 11/12/19 09:30 Dose: 81 mg Atorvastatin Calcium (Lipitor -) 10 mg PO HS [facility] Last Admin: 11/11/19 22:10 Dose: 10 mg Buspirone HCl (Buspar -) 10 mg PO BID [facility] Last Admin: 11/12/19 09:30 Dose: 10 mg Clopidogrel Bisulfate (Plavix -) 75 mg PO DAILY [facility] Last Admin: 11/12/19 09:24 Dose: 75 mg Donepezil HCl (Aricept -) 5 mg PO DAILY [facility] Last Admin: 11/12/19 09:24 Dose: 5 mg Furosemide (Lasix -) 40 mg PO DAILY [facility] Heparin Sodium (Porcine) (Heparin -) 5,000 unit SQ TID [facility] Ceftriaxone Sodium 2 gm/ (Dextrose) 100 mls @ 100 mls/hr IVPB DAILY [facility]; Protocol Last Admin: 11/12/19 09:30 Dose: 100 mls/hr Insulin Aspart (Novolog Vial Sliding Scale -) 1 vial SQ ACHS [facility]; Protocol Last Admin: 11/12/19 11:59 Dose: 6 units Insulin Detemir (Levemir Vial) 10 units SQ DAILY [facility] Last Admin: 11/12/19 10:52 Dose: Not Given Levothyroxine Sodium (Synthroid -) 25 mcg PO DAILY@0700 [facility] Last Admin: 11/12/19 06:51 Dose: 25 mcg Losartan Potassium (Cozaar -) 100 mg PO DAILY [facility] Last Admin: 11/12/19 09:30 Dose: 100 mg Mometasone Furoate (Asmanex 110mcg -) 1 puff IH HS [facility] Last Admin: 11/11/19 22:14 Dose: 1 puff Pantoprazole Sodium (Protonix -) 40 mg PO DAILY [facility] Last Admin: 11/12/19 09:24 Dose: 40 mg Trazodone HCl 100 mg/ (Trazodone HCl 50 mg) 150 mg PO HS [facility] Laboratory Results - last 24 hr 11/11/19 11/11/19 11/12/19 17:15 22:27 05:19 WBC RBC Hgb Hct MCV MCH MCHC RDW Plt Count MPV Sodium Potassium Chloride Carbon Dioxide Anion Gap BUN Creatinine Est GFR (CKD-EPI)AfAm Est GFR (CKD-EPI)NonAf POC Glucometer 341 256 190 Random Glucose Calcium Magnesium 11/12/19 11/12/19 11/12/19 07:15 07:15 11:47 WBC 8.7 RBC 3.31 L Hgb 8.4 L Hct 25.8 L MCV 77.9 L MCH 25.3 L MCHC 32.5 RDW 16.0 H Plt Count 376 MPV 7.6 Sodium 135 L Potassium 3.7 Chloride 98 Carbon Dioxide 27 Anion Gap 10 BUN 30.7 H Creatinine 1.5 H Est GFR (CKD-EPI)AfAm 36.95 Est GFR (CKD-EPI)NonAf 31.88 POC Glucometer 296 Random Glucose 250 H Calcium 8.7 Magnesium 2.3 Microbiology 11/08/19 18:05 Blood - Peripheral Venous Blood Culture - Preliminary NO GROWTH OBTAINED AFTER 72 HOURS, INCUBATION TO CONTINUE FOR 2 DAYS. 11/08/19 18:10 Blood - Peripheral Venous Blood Culture - Preliminary NO GROWTH OBTAINED AFTER 72 HOURS, INCUBATION TO CONTINUE FOR 2 DAYS. 11/08/19 19:24 Wound Gram Stain - Final 11/08/19 19:24 Wound Wound Culture - Final Diphtheroid/Corynebacterium Strep Agalactiae Group B 11/08/19 23:36 Urine - Urine - Catheterized Urine Culture - Final NO GROWTH OBTAINED MRI LE noted, pos osteomyelitis/Cellulitis ASSESSMENT AND PLAN: 84 yof with PMHx of diastolic HF, chronic Right foot wound, HTN, HLD, CVA, asthma, depression, anxiety, insomnia, IDDM admitted with right foot pain/ swelling, and 1 episode of hematochezia last week -RLE wound infection/cellulitis, with distal right metatarsal osteomyelitis -Acute on chronic diastolic heart failure exacerbation, suspect from dietary non compliance -PAD/Severe stenosis of proximal right RAFAELA s/p angiography/angioplasty 11/11 -?1 episode of hematochezia, none inhouse -IDDM -HTN -HLD -Asthma -Depression -Anxiety -Insomnia Plan: MRI LE noted. Wound cx noted. Abx changed to ceftriaxone. Anticipate prison. Follow up with podiatry for possible debridement/Rght MTP joint repair. Vascular surgery input noted. ASA/plavix. Volume status improved, cr rising. Repeat CXR improved, still with congestion. Change lasix to PO with close monitoring of renal function and volume status. Strict I/Os and daily weights. Suspect dietary non compliance. Low salt diet counseling. Nutrition consult. GI input noted. h/h stable, FOBT neg. No bleed or concerns inhouse. Per Dr. Velez, plan to continue ASA/plavix. Risk of withholding ASA/plavix outweigh benefits currently given PAD with recent intervention and no active bleed concerns. PPI daily. Continue levothyroxine/losartan/amlodipine/statin DVTPPX change to heparin. Dispo home with services vs SNF pending abx plan and need for surgical intervention. Discussed with patient in detail, all questions answered.
[2019-11-12] MEDS: FUROSEMIDE 40 MG TABLET (FP) PO SCH (14:28)
--- NOTE | 2019-11-12 15:18 | PN ---
Progress Note, Physician History of Present Illness: chronic wound right foot secondary to hallux valgus and ill fitting shoe gear - Current Medication List Current Medications: Active Medications Acetaminophen (Tylenol -) 325 mg PO Q6H PRN PRN Reason: PAIN LEVEL 4 - 6 Last Admin: 11/12/19 03:49 Dose: 325 mg Albuterol Sulfate (Ventolin Hfa Inhaler -) 1 puff IH Q6H PRN PRN Reason: SHORTNESS OF BREATH Amlodipine Besylate (Norvasc -) 5 mg PO DAILY [facility] Last Admin: 11/12/19 09:30 Dose: 5 mg Aspirin (Asa -) 81 mg PO DAILY [facility] Last Admin: 11/12/19 09:30 Dose: 81 mg Atorvastatin Calcium (Lipitor -) 10 mg PO HS [facility] Last Admin: 11/11/19 22:10 Dose: 10 mg Buspirone HCl (Buspar -) 10 mg PO BID [facility] Last Admin: 11/12/19 09:30 Dose: 10 mg Clopidogrel Bisulfate (Plavix -) 75 mg PO DAILY [facility] Last Admin: 11/12/19 09:24 Dose: 75 mg Donepezil HCl (Aricept -) 5 mg PO DAILY [facility] Last Admin: 11/12/19 09:24 Dose: 5 mg Furosemide (Lasix -) 40 mg PO DAILY [facility] Last Admin: 11/12/19 14:28 Dose: 40 mg Heparin Sodium (Porcine) (Heparin -) 5,000 unit SQ TID [facility] Ceftriaxone Sodium 2 gm/ (Dextrose) 100 mls @ 100 mls/hr IVPB DAILY [facility]; Protocol Last Admin: 11/12/19 09:30 Dose: 100 mls/hr Insulin Aspart (Novolog Vial Sliding Scale -) 1 vial SQ ACHS [facility]; Protocol Last Admin: 11/12/19 11:59 Dose: 6 units Insulin Detemir (Levemir Vial) 10 units SQ DAILY [facility] Last Admin: 11/12/19 10:52 Dose: Not Given Levothyroxine Sodium (Synthroid -) 25 mcg PO DAILY@0700 [facility] Last Admin: 11/12/19 06:51 Dose: 25 mcg Losartan Potassium (Cozaar -) 100 mg PO DAILY [facility] Last Admin: 11/12/19 09:30 Dose: 100 mg Mometasone Furoate (Asmanex 110mcg -) 1 puff IH HS [facility] Last Admin: 11/11/19 22:14 Dose: 1 puff Pantoprazole Sodium (Protonix -) 40 mg PO DAILY [facility] Last Admin: 11/12/19 09:24 Dose: 40 mg Trazodone HCl 100 mg/ (Trazodone HCl 50 mg) 150 mg PO HS [facility] - Objective Vital Signs: Vital Signs Temperature 98.5 F 11/12/19 14:36 Pulse Rate 87 11/12/19 14:36 Respiratory Rate 18 11/12/19 14:36 Blood Pressure 145/69 11/12/19 14:36 O2 Sat by Pulse Oximetry (%) 98 11/12/19 08:41 Extremities: Yes: Other (+om on mri, +grade 3 wound) Labs: CBC, BMP 11/12/19 07:15 11/12/19 07:15 INR, PTT INR 1.44 (0.83-1.09) H 11/08/19 20:00 Assessment/Plan om grade 3 wound Discussed with daughter Maria E. Agreeable to HBO and IVABX outpatient. Abx as per ID and HBO consult ordered. Will follow.
--- NOTE | 2019-11-12 15:23 | PN ---
Progress Note (short form) - Note Progress Note: s/p angiogram and angioplasty today feels well MRI +for osteomyelitis Vital Signs Period Temp Pulse Resp BP Sys/Persaud Pulse Ox Last 24 Hr 97.9 F-98.7 F 79-91 18-20 123-145/68-71 98-98 cor-rrr lungs clear abd soft,nt ext foot is bandaged CBC, BMP 11/12/19 07:15 11/12/19 07:15 Microbiology 11/08/19 18:05 Blood - Peripheral Venous Blood Culture - Preliminary NO GROWTH OBTAINED AFTER 72 HOURS, INCUBATION TO CONTINUE FOR 2 DAYS. 11/08/19 18:10 Blood - Peripheral Venous Blood Culture - Preliminary NO GROWTH OBTAINED AFTER 72 HOURS, INCUBATION TO CONTINUE FOR 2 DAYS. 11/08/19 19:24 Wound Gram Stain - Final 11/08/19 19:24 Wound Wound Culture - Final Diphtheroid/Corynebacterium Strep Agalactiae Group B 11/08/19 23:36 Urine - Urine - Catheterized Urine Culture - Final NO GROWTH OBTAINED Laboratory Tests 11/09/19 11/09/19 16:20 16:20 ESR 108 H C-Reactive Protein 8.0 H a/p osteomyelitis- plan for 6 weeks of rocephin- d/w daughters at the bedside and with digital sales planner awaiting podiatry f/u s/p angioplasty RLE Problem List - Problems (1) Cellulitis Code(s): L03.90 - CELLULITIS, UNSPECIFIED (2) Diabetes mellitus Code(s): E11.9 - TYPE 2 DIABETES MELLITUS WITHOUT COMPLICATIONS
[2019-11-12] MEDS ORDERED: PT OWN MED DRAWER 7, Y5N ONE (20:05)
[2019-11-12] MEDS: traZODone HCL 100 MG, traZODone HCL 50 MG PO SCH (21:56)
[2019-11-12] MEDS: MOMETASONE FUROATE 110 MCG/IH INHALER IH SCH (21:56)
[2019-11-12] MEDS: ATORVASTATIN CA 10 MG TABLET (FP) PO SCH (21:56)
[2019-11-13] MEDS: HEPARIN NA (PORCINE) 5,000 UNITS/ML 1ML VIAL SQ SCH ×2 (05:40→15:59)
[2019-11-13] MEDS: LEVOTHYROXINE NA 25 MCG TABLET (FP) PO SCH (06:11)
[2019-11-13] MEDS: INSULIN SLIDING SCALE (NOVOLOG) 1 VIAL SQ SCH ×4 (06:11→22:18)
[2019-11-13 07:02] LABS: HEMATOCRIT 26.9 % (32.4-45.2); HEMOGLOBIN 8.8 GM/dL (10.7-15.3); MCH 25.5 pg (25.7-33.7); MCHC 32.7 g/dl (32.0-36.0); MEAN CELL VOLUME 78.1 fl (80-96); PLATELET COUNT 338 K/MM3 (134-434); RBC 3.45 M/mm3 (3.60-5.2); WHITE BLOOD COUNT 6.6 K/mm3 (4.0-10.0)
[2019-11-13 07:37] LABS: BLOOD UREA NITROGEN 23.6 mg/dL (7-18); CALCIUM 8.5 mg/dL (8.5-10.1); CREATININE 1.1 mg/dL (0.55-1.3); MAGNESIUM 2.4 mg/dL (1.8-2.4); POTASSIUM 4.1 mmol/L (3.5-5.1)
[2019-11-13] MEDS ORDERED: DEXTROSE 5%-WATER 100 ML IVPB ONE (10:08)
[2019-11-13] MEDS: ASPIRIN 81 MG CHEWABLE TABLETS PO SCH (10:12)
[2019-11-13] MEDS: FUROSEMIDE 40 MG TABLET (FP) PO SCH (10:12)
[2019-11-13] MEDS: busPIRone HCL 10 MG TABLET (FP) PO SCH ×2 (10:12→22:51)
[2019-11-13] MEDS: CLOPIDOGREL BISULFATE 75 MG TABLET (FP) PO SCH (10:12)
[2019-11-13] MEDS: PANTOPRAZOLE 40 MG TABLET (FP) PO SCH (10:12)
[2019-11-13] MEDS: DONEPEZIL HCL 5 MG TABLET (FP) PO SCH (10:12)
[2019-11-13] MEDS: amLODIPine BESYLATE 5 MG TABLET (FP) PO SCH (10:12)
[2019-11-13] MEDS: INSULIN (LEVEMIR) 100 UNITS/ML UNITS SQ SCH (10:13)
[2019-11-13] MEDS: CEFTRIAXONE 2 GM in DEXTROSE 5%-WATER 100 ML IVPB SCH (10:14)
[2019-11-13] MEDS: LOSARTAN POTASSIUM 50 MG TABLET (FP) PO SCH (10:19)
[2019-11-13] MEDS: ACETAMINOPHEN 325 MG TABLET (FP) PO PRN (11:36)
--- NOTE | 2019-11-13 14:28 | PN ---
Physical Exam: SUBJECTIVE: Patient seen and examined, leg symptoms better, no dyspnea or new complaints. OBJECTIVE: Vital Signs Period Temp Pulse Resp BP Sys/Persaud Pulse Ox Last 24 Hr 98.3 F-99.1 F 77-92 18-20 134-149/69-84 97-98 Intake & Output 11/10/19 11/11/19 11/12/19 11/13/19 23:59 23:59 23:59 23:59 Intake Total 400 1200 250 0 Output Total 10 Balance 400 1190 250 0 Weight 179 lb 3.2 oz 179 lb 1.6 oz 183 lb 182 lb 12.8 oz General: sitting in bed, no acute distress Chest: markedly improved air entry, no rales appreciated today CVS: S1s2 regular Abdomen:Soft, NT, ND Extremities: right great toe wound with no discharge today, improved surrounding swelling/erythema. pos DP pulses, worsening swelling Psych: pleasant, co-operative Home Medications Medication Instructions Recorded Donepezil HCl [Aricept -] 5 mg PO DAILY 08/17/17 Buspirone HCl [Buspar -] 10 mg PO BID #60 tablet 09/11/17 metFORMIN HCL [Metformin HCl] 500 mg PO BID #0 tab 09/11/17 Insulin Degludec [Tresiba] 24 unit SQ DAILY 05/27/19 Quetiapine Fumarate [Seroquel -] 25 mg PO HS 05/27/19 Trazodone HCl 150 mg PO HS 05/27/19 Losartan Potassium 100 mg PO DAILY 05/28/19 Albuterol Sulfate Inhaler - 1 - 2 inh PO QID 10/06/19 [Ventolin HFA Inhaler -] Amlodipine Besylate [Norvasc -] 5 mg PO DAILY 10/07/19 Atorvastatin Ca [Lipitor] 10 mg PO DAILY 10/07/19 Clopidogrel Bisulfate [Clopidogrel] 75 mg PO DAILY 10/07/19 Ergocalciferol (Vitamin D2) 50,000 unit PO WEEKLY 10/07/19 [Vitamin D2] Fluticasone Propionate [Flovent 2 puff IH DAILY 10/07/19 Hfa] Levothyroxine [Synthroid -] 25 mcg PO DAILY 10/07/19 Furosemide [Lasix -] 40 mg PO DAILY #30 tablet 10/10/19 Laboratory Results - last 24 hr 11/12/19 11/12/19 11/13/19 16:46 21:59 05:20 WBC RBC Hgb Hct MCV MCH MCHC RDW Plt Count MPV Sodium Potassium Chloride Carbon Dioxide Anion Gap BUN Creatinine Est GFR (CKD-EPI)AfAm Est GFR (CKD-EPI)NonAf POC Glucometer 280 287 160 Random Glucose Calcium Magnesium 11/13/19 11/13/19 11/13/19 06:00 06:00 11:28 WBC 6.6 RBC 3.45 L Hgb 8.8 L Hct 26.9 L MCV 78.1 L MCH 25.5 L MCHC 32.7 RDW 16.0 H Plt Count 338 MPV 8.0 Sodium 137 Potassium 4.1 Chloride 102 Carbon Dioxide 27 Anion Gap 8 BUN 23.6 H Creatinine 1.1 Est GFR (CKD-EPI)AfAm 53.77 Est GFR (CKD-EPI)NonAf 46.39 POC Glucometer 224 Random Glucose 162 H Calcium 8.5 Magnesium 2.4 Active Medications Generic Name Dose Route Start Last Admin Trade Name Freq PRN Reason Stop Dose Admin Acetaminophen 325 mg 11/12/19 02:52 11/13/19 11:36 Tylenol - PO 325 mg Q6H PRN Administration PAIN LEVEL 4 - 6 Albuterol Sulfate 1 puff 11/11/19 10:40 Ventolin Hfa Inhaler - IH Q6H PRN SHORTNESS OF BREATH Amlodipine Besylate 5 mg 11/12/19 10:00 11/13/19 10:12 Norvasc - PO 5 mg DAILY [facility] Administration Aspirin 81 mg 11/12/19 10:00 11/13/19 10:12 Asa - PO 81 mg DAILY [facility] Administration Atorvastatin Calcium 10 mg 11/11/19 22:00 11/12/19 21:56 Lipitor - PO 10 mg HS [facility] Administration Buspirone HCl 10 mg 11/11/19 22:00 11/13/19 10:12 Buspar - PO 10 mg BID [facility] Administration Clopidogrel Bisulfate 75 mg 11/12/19 10:00 11/13/19 10:12 Plavix - PO 75 mg DAILY [facility] Administration Donepezil HCl 5 mg 11/12/19 10:00 11/13/19 10:12 Aricept - PO 5 mg DAILY [facility] Administration Furosemide 40 mg 11/12/19 14:15 11/13/19 10:12 Lasix - PO 40 mg DAILY [facility] Administration Heparin Sodium (Porcine) 5,000 unit 12/28/19 06:00 11/13/19 05:40 Heparin - SQ 5,000 unit TID [facility] Administration Ceftriaxone Sodium 2 gm/ 100 mls @ 100 mls/hr 11/11/19 14:45 11/13/19 10:14 Dextrose IVPB 100 mls/hr DAILY [facility] Administration Protocol Insulin Aspart 1 vial 11/11/19 11:00 11/13/19 11:35 Novolog Vial Sliding Scale - SQ 4 units ACHS [facility] Administration Protocol Insulin Detemir 10 units 11/12/19 07:00 11/13/19 10:13 Levemir Vial SQ 10 units DAILY [facility] Administration Levothyroxine Sodium 25 mcg 11/12/19 07:00 11/13/19 06:11 Synthroid - PO 25 mcg DAILY@0700 [facility] Administration Losartan Potassium 100 mg 11/12/19 10:00 11/13/19 10:19 Cozaar - PO 100 mg DAILY [facility] Administration Mometasone Furoate 1 puff 11/11/19 22:00 11/12/19 21:56 Asmanex 110mcg - IH 1 puff HS [facility] Administration Pantoprazole Sodium 40 mg 11/11/19 10:45 11/13/19 10:12 Protonix - PO 40 mg DAILY [facility] Administration Trazodone HCl 100 mg/ 150 mg 11/12/19 22:00 11/12/19 21:56 Trazodone HCl 50 mg PO 150 mg HS [facility] Administration Microbiology 11/08/19 18:05 Blood - Peripheral Venous Blood Culture - Preliminary NO GROWTH OBTAINED AFTER 96 HOURS, INCUBATION TO CONTINUE FOR 1 DAYS. 11/08/19 18:10 Blood - Peripheral Venous Blood Culture - Preliminary NO GROWTH OBTAINED AFTER 96 HOURS, INCUBATION TO CONTINUE FOR 1 DAYS. 11/08/19 19:24 Wound Gram Stain - Final 11/08/19 19:24 Wound Wound Culture - Final Diphtheroid/Corynebacterium Strep Agalactiae Group B 11/08/19 23:36 Urine - Urine - Catheterized Urine Culture - Final NO GROWTH OBTAINED ASSESSMENT/PLAN: 84 yof with PMHx of diastolic HF, chronic Right foot wound, HTN, HLD, CVA, asthma, depression, anxiety, insomnia, IDDM admitted with right foot pain/ swelling, and 1 episode of hematochezia last week -RLE wound infection/cellulitis, with distal right metatarsal osteomyelitis -Acute on chronic diastolic heart failure exacerbation, suspect from dietary non compliance -PAD/Severe stenosis of proximal right RAFAELA s/p angiography/angioplasty 11/11 -?1 episode of hematochezia, none inhouse -IDDM -HTN -HLD -Asthma -Depression -Anxiety -Insomnia Plan: ID/podiatry input noted. Plan for PICC/IV Ceftriaxone, no plans for surgical intervention Home with VNS vs SNF Daughters worried about compliance at home. Has been non compliant with low salt diet and recommended footwear. Will follow up with social work. Volume status improved. Renal function stable. Continue home lasix 40 mg po Vascular surgery input noted. ASA/plavix. GI input noted. h/h stable, FOBT neg. No bleed or concerns inhouse. Per Dr. Velez, plan to continue ASA/plavix. Risk of withholding ASA/plavix outweigh benefits currently given PAD with recent intervention and no active bleed concerns. PPI daily. Continue levothyroxine/losartan/amlodipine/statin DVTPPX lovenox Dispo home with services vs SNF with PICC/IV abx on Friday if no new concerns. Discussed with patient in detail, all questions answered. Visit type - Emergency Visit Emergency Visit: Yes ED Registration Date: 11/08/19 Care time: The patient presented to the Emergency Department on the above date and was hospitalized for further evaluation of their emergent condition. - New Patient This patient is new to me today: No - Critical Care Critical Care patient: No - Discharge Referral Referred to [facility] Med [facility].C.: No
[2019-11-13] MEDS ORDERED: PT OWN MED DRAWER 7, Y5N ONE (21:26)
[2019-11-13] MEDS: MOMETASONE FUROATE 110 MCG/IH INHALER IH SCH (22:13)
[2019-11-13] MEDS: ATORVASTATIN CA 10 MG TABLET (FP) PO SCH (22:15)
[2019-11-13] MEDS: traZODone HCL 100 MG, traZODone HCL 50 MG PO SCH (22:15)
[2019-11-14] MEDS: INSULIN SLIDING SCALE (NOVOLOG) 1 VIAL SQ SCH ×4 (06:05→21:46)
[2019-11-14] MEDS: LEVOTHYROXINE NA 25 MCG TABLET (FP) PO SCH (06:05)
[2019-11-14 07:06] LABS: BLOOD UREA NITROGEN 24.4 mg/dL (7-18); CALCIUM 8.6 mg/dL (8.5-10.1); POTASSIUM 4.2 mmol/L (3.5-5.1)
[2019-11-14] MEDS ORDERED: DEXTROSE 5%-WATER 100 ML IVPB ONE (09:02)
[2019-11-14] MEDS: PANTOPRAZOLE 40 MG TABLET (FP) PO SCH (10:05)
[2019-11-14] MEDS: ASPIRIN 81 MG CHEWABLE TABLETS PO SCH (10:05)
[2019-11-14] MEDS: CEFTRIAXONE 2 GM in DEXTROSE 5%-WATER 100 ML IVPB SCH (10:05)
[2019-11-14] MEDS: CLOPIDOGREL BISULFATE 75 MG TABLET (FP) PO SCH (10:06)
[2019-11-14] MEDS: DONEPEZIL HCL 5 MG TABLET (FP) PO SCH (10:06)
[2019-11-14] MEDS: FUROSEMIDE 40 MG TABLET (FP) PO SCH (10:06)
[2019-11-14] MEDS: ENOXAPARIN NA (PORCINE) 40 MG/0.4 ML DISP.SYRIN SQ SCH (10:06)
[2019-11-14] MEDS: amLODIPine BESYLATE 5 MG TABLET (FP) PO SCH (10:06)
[2019-11-14] MEDS: LOSARTAN POTASSIUM 50 MG TABLET (FP) PO SCH (10:07)
[2019-11-14] MEDS: INSULIN (LEVEMIR) 100 UNITS/ML UNITS SQ SCH (10:10)
[2019-11-14] MEDS: busPIRone HCL 10 MG TABLET (FP) PO SCH ×2 (10:10→21:44)
[2019-11-14] MEDS ORDERED: INSULIN (LEVEMIR) 100 UNITS/ML UNITS SQ ONE (12:28)
--- NOTE | 2019-11-14 12:28 | PN ---
Teaching Attending Note Name of Resident: Jamie Rodríguez ATTENDING PHYSICIAN STATEMENT I saw and evaluated the patient. I reviewed the resident's note and discussed the case with the resident. I agree with the resident's findings and plan as documented with exceptions below. SUBJECTIVE: Patient seen and examined, no complaints. OBJECTIVE: Vital Signs Period Temp Pulse Resp BP Sys/Persaud Pulse Ox Last 24 Hr 97.7 F-98.6 F 79-100 18-20 140-157/58-87 97 Intake & Output 11/11/19 11/12/19 11/13/19 11/14/19 23:59 23:59 23:59 23:59 Intake Total 1200 250 100 0 Output Total 10 Balance 1190 250 100 0 Weight 179 lb 1.6 oz 183 lb 182 lb 12.8 oz 182 lb 3.2 oz General: sitting in bed, no acute distress Chest: few bibasilar rales, L>R, improved exam Abdomen:Soft, obese, NT Extremities: RLE edema till midleg, pos DP pulses, right great toe wound dry no active discharge expressed Home Medications Medication Instructions Recorded Donepezil HCl [Aricept -] 5 mg PO DAILY 08/17/17 Buspirone HCl [Buspar -] 10 mg PO BID #60 tablet 09/11/17 metFORMIN HCL [Metformin HCl] 500 mg PO BID #0 tab 09/11/17 Insulin Degludec [Tresiba] 24 unit SQ DAILY 05/27/19 Quetiapine Fumarate [Seroquel -] 25 mg PO HS 05/27/19 Trazodone HCl 150 mg PO HS 05/27/19 Losartan Potassium 100 mg PO DAILY 05/28/19 Albuterol Sulfate Inhaler - 1 - 2 inh PO QID 10/06/19 [Ventolin HFA Inhaler -] Amlodipine Besylate [Norvasc -] 5 mg PO DAILY 10/07/19 Atorvastatin Ca [Lipitor] 10 mg PO DAILY 10/07/19 Clopidogrel Bisulfate [Clopidogrel] 75 mg PO DAILY 10/07/19 Ergocalciferol (Vitamin D2) 50,000 unit PO WEEKLY 10/07/19 [Vitamin D2] Fluticasone Propionate [Flovent 2 puff IH DAILY 10/07/19 Hfa] Levothyroxine [Synthroid -] 25 mcg PO DAILY 10/07/19 Furosemide [Lasix -] 40 mg PO DAILY #30 tablet 10/10/19 Active Medications Acetaminophen (Tylenol -) 325 mg PO Q6H PRN PRN Reason: PAIN LEVEL 4 - 6 Last Admin: 11/13/19 11:36 Dose: 325 mg Albuterol Sulfate (Ventolin Hfa Inhaler -) 1 puff IH Q6H PRN PRN Reason: SHORTNESS OF BREATH Amlodipine Besylate (Norvasc -) 5 mg PO DAILY [facility] Last Admin: 11/14/19 10:06 Dose: 5 mg Aspirin (Asa -) 81 mg PO DAILY [facility] Last Admin: 11/14/19 10:05 Dose: 81 mg Atorvastatin Calcium (Lipitor -) 10 mg PO HS [facility] Last Admin: 11/13/19 22:15 Dose: 10 mg Buspirone HCl (Buspar -) 10 mg PO BID [facility] [place] Last Admin: 11/14/19 10:10 Dose: 10 mg Clopidogrel Bisulfate (Plavix -) 75 mg PO DAILY [facility] [place] Last Admin: 11/14/19 10:06 Dose: 75 mg Donepezil HCl (Aricept -) 5 mg PO DAILY [facility] [place] Last Admin: 11/14/19 10:06 Dose: 5 mg Enoxaparin Sodium (Lovenox -) 40 mg SQ DAILY [facility] Last Admin: 11/14/19 10:06 Dose: 40 mg Furosemide (Lasix -) 40 mg PO DAILY [facility] [place] Last Admin: 11/14/19 10:06 Dose: 40 mg Ceftriaxone Sodium 2 gm/ (Dextrose) 100 mls @ 100 mls/hr IVPB DAILY [facility]; Protocol Last Admin: 11/14/19 10:05 Dose: 100 mls/hr Insulin Aspart (Novolog Vial Sliding Scale -) 1 vial SQ ACHS [facility] [place]; Protocol Last Admin: 11/14/19 11:56 Dose: 6 units Insulin Detemir (Levemir Vial) 5 units SQ ONCE ONE Stop: 11/14/19 12:29 Insulin Detemir (Levemir Vial) 15 units SQ DAILY [facility] Levothyroxine Sodium (Synthroid -) 25 mcg PO DAILY@0700 [facility] Last Admin: 11/14/19 06:05 Dose: 25 mcg Losartan Potassium (Cozaar -) 100 mg PO DAILY [facility] [place] Last Admin: 11/14/19 10:07 Dose: 100 mg Mometasone Furoate (Asmanex 110mcg -) 1 puff IH HS [facility] [place] Last Admin: 11/13/19 22:13 Dose: 1 puff Pantoprazole Sodium (Protonix -) 40 mg PO DAILY [facility] [place] Last Admin: 11/14/19 10:05 Dose: 40 mg Trazodone HCl 100 mg/ (Trazodone HCl 50 mg) 150 mg PO HS [facility] Last Admin: 11/13/19 22:15 Dose: 150 mg Laboratory Results - last 24 hr 11/13/19 11/13/19 11/14/19 16:25 20:41 05:59 Sodium Potassium Chloride Carbon Dioxide Anion Gap BUN Creatinine Est GFR (CKD-EPI)AfAm Est GFR (CKD-EPI)NonAf POC Glucometer 254 242 195 Random Glucose Calcium 11/14/19 11/14/19 06:06 11:28 Sodium 137 Potassium 4.2 Chloride 104 Carbon Dioxide 29 Anion Gap 4 L BUN 24.4 H Creatinine 1.0 Est GFR (CKD-EPI)AfAm 60.33 Est GFR (CKD-EPI)NonAf 52.06 POC Glucometer 271 Random Glucose 198 H Calcium 8.6 Microbiology 11/08/19 18:05 Blood - Peripheral Venous Blood Culture - Final NO GROWTH AFTER 5 DAYS INCUBATION 11/08/19 18:10 Blood - Peripheral Venous Blood Culture - Final NO GROWTH AFTER 5 DAYS INCUBATION 11/08/19 19:24 Wound Gram Stain - Final 11/08/19 19:24 Wound Wound Culture - Final Diphtheroid/Corynebacterium Strep Agalactiae Group B 11/08/19 23:36 Urine - Urine - Catheterized Urine Culture - Final NO GROWTH OBTAINED ASSESSMENT AND PLAN: 84 yof with PMHx of diastolic HF, chronic Right foot wound, HTN, HLD, CVA, asthma, depression, anxiety, insomnia, IDDM admitted with right foot pain/ swelling, and 1 episode of hematochezia last week -RLE wound infection/cellulitis, with distal right metatarsal osteomyelitis -Acute on chronic diastolic heart failure exacerbation, suspect from dietary non compliance -PAD/Severe stenosis of proximal right RAFAELA s/p angiography/angioplasty 11/11 -?1 episode of hematochezia, none inhouse -IDDM -HTN -HLD -Asthma -Depression -Anxiety -Insomnia Plan: ID/podiatry input noted. Plan for PICC/IV Ceftriaxone, no plans for surgical intervention Home with VNS vs SNF, follow up with social work and family. Daughters worried about compliance at home. Has been non compliant with low salt diet and recommended footwear. Volume status improved. Renal function stable. Continue home lasix 40 mg po Vascular surgery input noted. ASA/plavix. Check RLE duplex. GI input noted. h/h stable, FOBT neg. No bleed or concerns inhouse. Per Dr. Velez, plan to continue ASA/plavix. Risk of withholding ASA/plavix outweigh benefits currently given PAD with recent intervention and no active bleed concerns. PPI daily. Continue levothyroxine/losartan/amlodipine/statin DVTPPX lovenox Dispo home with services vs SNF with PICC/IV abx on Friday if no new concerns. Discussed with patient in detail, all questions answered.
--- NOTE | 2019-11-14 18:54 | PN ---
Physical Exam: SUBJECTIVE: Patient seen and examined. No acute events overnight. Patient refusing to ambulate with PT. Denies chest pain, SOB. OBJECTIVE: Vital Signs Period Temp Pulse Resp BP Sys/Persaud Pulse Ox Last 24 Hr 97.7 F-98.6 F 79-100 18-20 140-158/58-87 97-97 GENERAL: The patient is awake, alert, and fully oriented, in no acute distress. HEAD: Normal with no signs of trauma. EYES: EOMI, no scleral icterus ENT: Oropharynx clear without exudates, moist mucous membranes. NECK: Trachea midline, full range of motion, supple. LUNGS: bibasilar rales, good air entry. No wheezes, no accessory muscle use. HEART: Regular rate and rhythm, S1, S2 without murmur, rub. ABDOMEN: Soft, nontender, nondistended, normoactive bowel sounds, no guarding, no rebound, no masses. EXTREMITIES: pulses 2+ bilaterally after pressing through edema on R, warm, well -perfused, 2+ edema up to the ankle on the R side. Ulcer noted on the R medial portion of the foot NEUROLOGICAL: 5/5 muscle strength, upper and lower extremities, bilaterally. PSYCH: Normal mood, normal affect. SKIN: Warm, dry, normal turgor. Laboratory Results - last 24 hr 11/13/19 11/14/19 11/14/19 20:41 05:59 06:06 Sodium 137 Potassium 4.2 Chloride 104 Carbon Dioxide 29 Anion Gap 4 L BUN 24.4 H Creatinine 1.0 Est GFR (CKD-EPI)AfAm 60.33 Est GFR (CKD-EPI)NonAf 52.06 POC Glucometer 242 195 Random Glucose 198 H Calcium 8.6 11/14/19 11/14/19 11:28 16:50 Sodium Potassium Chloride Carbon Dioxide Anion Gap BUN Creatinine Est GFR (CKD-EPI)AfAm Est GFR (CKD-EPI)NonAf POC Glucometer 271 258 Random Glucose Calcium Active Medications Generic Name Dose Route Start Last Admin Trade Name Freq PRN Reason Stop Dose Admin Acetaminophen 325 mg 11/12/19 02:52 11/13/19 11:36 Tylenol - PO 325 mg Q6H PRN Administration PAIN LEVEL 4 - 6 Albuterol Sulfate 1 puff 11/11/19 10:40 Ventolin Hfa Inhaler - IH Q6H PRN SHORTNESS OF BREATH Amlodipine Besylate 5 mg 11/12/19 10:00 11/14/19 10:06 Norvasc - PO 5 mg DAILY [facility]ISON Administration Aspirin 81 mg 11/12/19 10:00 11/14/19 10:05 Asa - PO 81 mg DAILY [facility]ISON Administration Atorvastatin Calcium 10 mg 11/11/19 22:00 11/13/19 22:15 Lipitor - PO 10 mg HS EDISON Administration Buspirone HCl 10 mg 11/11/19 22:00 11/14/19 10:10 Buspar - PO 10 mg BID EDISON Administration Clopidogrel Bisulfate 75 mg 11/12/19 10:00 11/14/19 10:06 Plavix - PO 75 mg DAILY [facility] Administration Donepezil HCl 5 mg 11/12/19 10:00 11/14/19 10:06 Aricept - PO 5 mg DAILY [facility] Administration Enoxaparin Sodium 40 mg 11/14/19 10:00 11/14/19 10:06 Lovenox - SQ 40 mg DAILY [facility] Administration Furosemide 40 mg 11/12/19 14:15 11/14/19 10:06 Lasix - PO 40 mg DAILY [facility] Administration Ceftriaxone Sodium 2 gm/ 100 mls @ 100 mls/hr 11/11/19 14:45 11/14/19 10:05 Dextrose IVPB 100 mls/hr DAILY [facility] Administration Protocol Insulin Aspart 1 vial 11/11/19 11:00 11/14/19 17:05 Novolog Vial Sliding Scale - SQ 6 units ACHS [facility] Administration Protocol Insulin Detemir 15 units 11/15/19 07:00 Levemir Vial SQ AM [facility] Levothyroxine Sodium 25 mcg 11/12/19 07:00 11/14/19 06:05 Synthroid - PO 25 mcg DAILY@0700 [facility] Administration Losartan Potassium 100 mg 11/12/19 10:00 11/14/19 10:07 Cozaar - PO 100 mg DAILY [facility] Administration Mometasone Furoate 1 puff 11/11/19 22:00 11/13/19 22:13 Asmanex 110mcg - IH 1 puff HS [facility] Administration Pantoprazole Sodium 40 mg 11/11/19 10:45 11/14/19 10:05 Protonix - PO 40 mg DAILY [facility] Administration Trazodone HCl 100 mg/ 150 mg 11/12/19 22:00 11/13/19 22:15 Trazodone HCl 50 mg PO 150 mg HS [facility] Administration ASSESSMENT/PLAN: Lynne Pierce is an 84 year old female with a past medical history of HTN, HLD, CVA, asthma, depression, anxiety, insomnia, IDDM, chronic R foot wound, presents with right foot wound pain and admitted for R foot cellulitis. Cellulitis - no leukocytosis, pt afebrile - wound cultures with diphtheroid/cornybacterium (normal skin say) and strep agalactiae - Foot XR with no definitive osteomyelitis - foot MRI noting osteomyelitis in 1st metatarsal bone, degenerative changes in first metatarsal joint with subluxation of metatarsal head - ceftriaxone as per ID - will need PICC line and outpatient antibiotics for 6 weeks - podiatry recs appreciated, will add dressings, f/u if needing repair - ID consulted, recs appreciated - elevated ESR/CRP - went for angiogram with vascular surgery noting 90% stenosis of R anterior tibial artery and underwent revascularization of right anterior tibial artery with atherectomy and angioplasty - continue Plavix after angioplasty - will require proper shoes to avoid further damage to feet - F/U RLE duplex study Acute on Chronic HFpEF - CXR on admission with bilateral effusions, repeat CXR with decreasing congestive changes - restart home Lasix - CRE 1.5, continue to monitor - strict I/Os - daily weights - dietary consult to recommend diet for CHF Microcytic anemia - iron studies noting an iron deficiency anemia - FOBT negative - GI consulted, recs appreciated - Upper GI series when patient stable - will follow with GI as outpatient Asthma - Duonebs - albuterol prn HLD - home Lipitor HTN - home amlodipine Hx of CVA - on Plavix DM - ISS ACHS - BGM ACHS - hold oral antiglycemics - A1c 7.7 - Levemir 10 units Hypothyroid - home synthroid Prophylaxis - heparin 5000 units subq tid - Protonix F/E/N - no standing fluids, encourage PO intake - continue to monitor electrolytes and replete as necessary - diabetic/low sodium diet Dispo - likely D/C tomorrow with PICC line and abx pending continued improvement Visit type - Emergency Visit Emergency Visit: Yes ED Registration Date: 11/08/19 Care time: The patient presented to the Emergency Department on the above date and was hospitalized for further evaluation of their emergent condition. - New Patient This patient is new to me today: No - Critical Care Critical Care patient: No ATTENDING PHYSICIAN STATEMENT I saw and evaluated the patient. I reviewed the resident's note and discussed the case with the resident. I agree with the resident's findings and plan as documented. SUBJECTIVE: OBJECTIVE: ASSESSMENT AND PLAN:
[2019-11-14] MEDS ORDERED: PT OWN MED DRAWER 7, Y5N ONE (20:48)
[2019-11-14] MEDS: MOMETASONE FUROATE 110 MCG/IH INHALER IH SCH ×2 (21:41→21:51)
[2019-11-14] MEDS: traZODone HCL 100 MG, traZODone HCL 50 MG PO SCH (21:45)
[2019-11-14] MEDS: ATORVASTATIN CA 10 MG TABLET (FP) PO SCH (21:45)
[2019-11-15] MEDS: INSULIN SLIDING SCALE (NOVOLOG) 1 VIAL SQ SCH ×3 (06:01→17:39)
[2019-11-15] MEDS: LEVOTHYROXINE NA 25 MCG TABLET (FP) PO SCH (06:01)
[2019-11-15] MEDS ORDERED: INSULIN (LEVEMIR) 100 UNITS/ML UNITS SQ SCH (07:00)
--- NOTE | 2019-11-15 09:19 | CONS ---
DATE OF CONSULTATION: 11/09/2019 CONSULTATION REQUESTED BY: Hospitalist Service HISTORY OF PRESENT ILLNESS: The patient is an 84-year-old female with a past medical history of hypertension. She has had issues with a chronic bunion on her right foot. It was attributed to ill-fitting shoes. She has had intermittent serous drainage from a shallow ulcer at the bunion site. Over the course of the weekend, she noted increased pain and swelling of this foot. She had increased drainage. The foot became red and swollen. She has had no fevers or chills and she came to the ER. She is followed by Dr. Perla and by wound care. She denies any fever, chills, nausea, vomiting, diarrhea, dysuria, shortness of breath or chest pain. PAST MEDICAL HISTORY: Notable for hypertension, hyperlipidemia, peripheral neuropathy, diabetes, GERD, renal insufficiency and anxiety. PAST SURGICAL HISTORY: Notable for a cholecystectomy, section and cataract surgery. SOCIAL HISTORY: No history of cigarette or alcohol use. She lives alone. No recent travel. ALLERGIES: SHELLFISH. HOME MEDICATIONS: Her outpatient medications include metformin, Trazodone, Seroquel, Synthroid, insulin, furosemide, fluticasone, vitamin D, Aricept, Plavix. BuSpar, Lipitor, Norvasc and Ventolin. FAMILY HISTORY: Noncontributory. PHYSICAL EXAMINATION: General: She is awake and alert, in no distress. Vital Signs: Temperature 98.7, pulse 101, blood pressure 160/85, respiratory rate 18, saturating 93% on room air. HEENT: Normocephalic. Her eyes are anicteric. Neck: Supple. Lungs: Clear to auscultation. Heart: Regular rate and rhythm. Abdomen: Soft, nontender. Extremities: Without edema. Her right foot is swollen. She has a bunion with a shallow fluid-filled collection. She has gross swelling of the right leg. There is minimal erythema. LABORATORY DATA: White count is 8.2. Hemoglobin 8.6, platelets are 311. BUN is 16, creatinine is 0.9. LFTs are normal. Urinalysis has 3+ leukocytes, 3+ protein. Leukocytes are negative. Cultures are pending. Her last foot culture grew out group B strep on September 23, 2019. Sed rate was not done. Her CRP is pending. An x-ray of the foot shows no evidence of osteo. In summary, this is an elderly woman with diabetes with a recurring soft tissue infection of her bunion. Rule out a small abscess; rule out osteo. An MRI of this foot is pending. Will treat her with vancomycin and Zosyn. Follow up cultures. Check a sed rate and CRP. Further recommendations to follow. RADHA VU M.D. [id number] MTDD
[2019-11-15] MEDS ORDERED: DEXTROSE 5%-WATER 100 ML IVPB ONE (09:37)
[2019-11-15] MEDS: busPIRone HCL 10 MG TABLET (FP) PO SCH (11:15)
[2019-11-15] MEDS: PANTOPRAZOLE 40 MG TABLET (FP) PO SCH (11:15)
[2019-11-15] MEDS: ASPIRIN 81 MG CHEWABLE TABLETS PO SCH (11:16)
[2019-11-15] MEDS: FUROSEMIDE 40 MG TABLET (FP) PO SCH (11:16)
[2019-11-15] MEDS: CLOPIDOGREL BISULFATE 75 MG TABLET (FP) PO SCH (11:16)
[2019-11-15] MEDS: DONEPEZIL HCL 5 MG TABLET (FP) PO SCH (11:16)
[2019-11-15] MEDS: LOSARTAN POTASSIUM 50 MG TABLET (FP) PO SCH (11:16)
[2019-11-15] MEDS: amLODIPine BESYLATE 5 MG TABLET (FP) PO SCH (11:16)
[2019-11-15] MEDS: CEFTRIAXONE 2 GM in DEXTROSE 5%-WATER 100 ML IVPB SCH (11:17)
[2019-11-15] MEDS: ENOXAPARIN NA (PORCINE) 40 MG/0.4 ML DISP.SYRIN SQ SCH (11:17)
--- NOTE | 2019-11-15 12:42 | PN.GI ---
GI Progress Note Subjective: no rectal bleeding, no melena, no abdominal pain - Objective Vital Signs: Vital Signs Temperature 98.4 F 11/15/19 06:35 Pulse Rate 90 11/15/19 06:35 Respiratory Rate 18 11/15/19 06:35 Blood Pressure 158/86 11/15/19 06:35 O2 Sat by Pulse Oximetry (%) 97 11/15/19 09:00 Constitutional: Well Nourished Eyes: Yes: Conjunctiva Clear HENT: Yes: Atraumatic Neck: Yes: Supple Cardiovascular: Yes: Regular Rate and Rhythm Respiratory: Yes: CTA Bilaterally ...Palpate: Yes: Soft. No: Firm/Rigid, Guarding, Hepatomegaly, Mass, Pulsatile Mass, Splenomegaly, Tenderness Labs: CBC, BMP 11/13/19 06:00 11/14/19 06:06 INR, PTT INR 1.44 (0.83-1.09) H 11/08/19 20:00 Problem List - Problems (1) Anemia Assessment/Plan: R> EGD and colonosopy once medically cleare even as an outpatient' willl need UGIS Code(s): D64.9 - ANEMIA, UNSPECIFIED
[2019-11-15 14:46] VITALS: BP 150/74; PULSE 89; TEMP 98.7
--- NOTE | 2019-11-15 14:48 | PN ---
Teaching Attending Note Name of Resident: Joselo Chan ATTENDING PHYSICIAN STATEMENT I saw and evaluated the patient. I reviewed the resident's note and discussed the case with the resident. I agree with the resident's findings and plan as documented with exceptions below. SUBJECTIVE: Patient seen and examined. breathing well, no foot pain. No new complaints. OBJECTIVE: Vital Signs Period Temp Pulse Resp BP Sys/Persaud Pulse Ox Last 24 Hr 97.8 F-99.1 F 81-97 18-21 150-191/71-98 97-97 Intake & Output 11/12/19 11/13/19 11/14/19 11/15/19 23:59 23:59 23:59 23:59 Intake Total 250 100 500 0 Balance 250 100 500 0 Weight 183 lb 182 lb 12.8 oz 182 lb 3.2 oz General: sitting in bed, no acute distress Chest: few basilar rales, markedly improved Abdomen:Soft, obese, NT Extremities: right great toe wound dry, no active discharge, foot edema improved , pos DP pulses Home Medications Medication Instructions Recorded Donepezil HCl [Aricept -] 5 mg PO DAILY 08/17/17 Buspirone HCl [Buspar -] 10 mg PO BID #60 tablet 09/11/17 metFORMIN HCL [Metformin HCl] 500 mg PO BID #0 tab 09/11/17 Insulin Degludec [Tresiba] 24 unit SQ DAILY 05/27/19 Quetiapine Fumarate [Seroquel -] 25 mg PO HS 05/27/19 Trazodone HCl 150 mg PO HS 05/27/19 Losartan Potassium 100 mg PO DAILY 05/28/19 Amlodipine Besylate [Norvasc -] 5 mg PO DAILY 10/07/19 Atorvastatin Ca [Lipitor] 10 mg PO DAILY 10/07/19 Clopidogrel Bisulfate [Clopidogrel] 75 mg PO DAILY 10/07/19 Ergocalciferol (Vitamin D2) 50,000 unit PO WEEKLY 10/07/19 [Vitamin D2] Furosemide [Lasix -] 40 mg PO DAILY #30 tablet 10/10/19 Aspirin [ASA -] 81 mg PO DAILY #30 tab.chew 11/15/19 Ceftriaxone [Rocephin -] 2 gm IVPB DAILY vial 11/15/19 Levothyroxine [Synthroid -] 50 mcg PO DAILY 11/15/19 Laboratory Results - last 24 hr 11/14/19 11/14/19 11/15/19 16:50 21:34 05:51 POC Glucometer 258 238 217 11/15/19 11:21 POC Glucometer 230 Microbiology 11/08/19 18:05 Blood - Peripheral Venous Blood Culture - Final NO GROWTH AFTER 5 DAYS INCUBATION 11/08/19 18:10 Blood - Peripheral Venous Blood Culture - Final NO GROWTH AFTER 5 DAYS INCUBATION 11/08/19 19:24 Wound Gram Stain - Final 11/08/19 19:24 Wound Wound Culture - Final Diphtheroid/Corynebacterium Strep Agalactiae Group B 11/08/19 23:36 Urine - Urine - Catheterized Urine Culture - Final NO GROWTH OBTAINED ASSESSMENT AND PLAN: 84 yof with PMHx of diastolic HF, chronic Right foot wound, HTN, HLD, CVA, asthma, depression, anxiety, insomnia, IDDM admitted with right foot pain/ swelling, and 1 episode of hematochezia last week -RLE wound infection/cellulitis, with distal right metatarsal osteomyelitis -Acute on chronic diastolic heart failure exacerbation, suspect from dietary non compliance -PAD/Severe stenosis of proximal right RAFAELA s/p angiography/angioplasty 11/11 -?1 episode of hematochezia, none inhouse -IDDM -HTN -HLD -Asthma -Depression -Anxiety -Insomnia Plan: Improved. Ceftriaxone for total of 6 weeks PICC line placed outpatient GI/cardiology/podiatry/vascular surgery follow up. Salt/fluid restriction and foot hygeine counseling dc to SNF today Discussed with patient.
--- NOTE | 2019-11-15 16:00 | OP ---
DATE OF OPERATION: 11/11/2019 SURGEON: Luis Kyle MD PROCEDURE: Revascularization of the right anterior tibial artery with athrectomy and angioplasty. PREOPERATIVE DIAGNOSIS: Nonhealing wound of right foot. POSTOPERATIVE DIAGNOSIS: Nonhealing wound of right foot. ANESTHESIA: General. ANESTHESIOLOGIST: Gerardo Lewis CRNA OPERATIVE FINDINGS: Angiogram showed a patent distal aorta, bilateral femoral and popliteal arteries. The right tibial arteries were all occluded. There was reconstitution of the anterior tibial artery on the right in the upper calf with distal runoff to a dorsalis pedis artery in the foot. The peroneal artery was severely narrowed proximally with no distal runoff. The posterior tibial artery was also occurred in the mid calf, and there was no distal vessel seen at the ankle. DESCRIPTION OF PROCEDURE: Following routine patient identification with side and site verification, intravenous sedation was established and later changed to general anesthesia. Time-out was performed. Both groins were prepped with ChloraPrep. Using real time ultrasound guidance, the left common femoral artery was identified, and a site for cannulation proximal to the bifurcation was chosen. Lidocaine was infiltrated in the skin, subcutaneous tissues over the vessel, and the vessel was cannulated under ultrasound guidance with a micropuncture needle. A wire was passed proximally and the needle exchanged for a 5-Omani catheter. A J tip wire was advanced through the catheter and a 5-Omani sheath exchanged. An Omni Flush catheter and wire were then advanced into the abdominal aorta, and angiography was performed with dilute contrast and digital technique. The wire was then advanced through the catheter into the right iliac artery and distally to the level of the femoral artery. The catheter was advanced over the wire to this level and the table and C-arm were repositioned to obtain images of the right lower extremity to the calf. Stiff wire was passed through the catheter and into the superficial femoral artery to the level of the knee. A 5-Omani x 90-cm sheath was then advanced over the wire and the tip positioned in the popliteal artery. The patient was systemically heparinized. An angle-tip wire and catheter were then advanced into the anterior tibial artery and through the area of occlusion into the distal anterior tibial artery. A 0.014-inch wire was then passed through a catheter, and the catheter was removed. A CSI 1.25-mm solid crown atherectomy catheter was then used to perform rotational atherectomy at low, medium, and high speeds in the proximal anterior tibial artery. The artery was then postdilated with a long 3-mm balloon. Repeat imaging showed some spasms of the artery. This was treated with intra-arterial injection of dilute nitroglycerin solution. The artery was then ballooned again with a long inflation time. Completion imaging showed completely patent anterior tibial artery with an area of residual stenosis of approximately 50% in the mid calf. This area was postdilated again with a 3-mm x 2-cm balloon without significant change. There appeared to be good flow through the area, and no small stents were available for use. Therefore, the wire was removed, and attempt to catheterize the peroneal artery was unsuccessful as the wire would not pass distally to the proximal calf. The sheath was then pulled back over the aortic bifurcation into the left iliac artery. Angiogram of the left femoral artery was obtained showing the cannulation site in the common femoral artery. The long sheath was exchanged for a short 5-Omani sheath and then the sheath was removed using a Mynx closure device. Pressure was applied until hemostasis was achieved and the sterile dressings applied. The patient was taken to the recovery room in stable condition. LUIS KYLE M.D. [id number]
--- NOTE | 2019-11-15 18:42 | DS ---
Physical Exam: SUBJECTIVE: Patient seen and examined at the bedside. Stated that she feels better. Endorses some pain in her R foot. Denied cp, sob, abd pain, n/v/c/d, fever, chills, headaches, dizziness, lightheadedness, numbness, tingling, pruritis. OBJECTIVE: Vital Signs Period Temp Pulse Resp BP Sys/Persaud Pulse Ox Last 24 Hr 98 F-99.1 F 89-97 18-18 150-158/71-86 97-97 PHYSICAL EXAM GENERAL: The patient is awake, alert, and fully oriented, in no acute distress. HEAD: Normal with no signs of trauma. EYES: PERRL, no scleral icterus ENT: Oropharynx clear without exudates, moist mucous membranes. NECK: Trachea midline, full range of motion, supple. LUNGS: Mild crackles bilaterally. No wheezes, no accessory muscle use. HEART: Regular rate and rhythm, S1, S2 without murmur, rub. ABDOMEN: Soft, nontender, nondistended, normoactive bowel sounds, no guarding, no rebound, no masses. EXTREMITIES: pulses 2+ bilaterally after pressing through edema on R, warm, well -perfused, 2+ edema up to the ankle on the R side. Ulcer noted on the R medial portion of the foot, non-draining, dry. NEUROLOGICAL: CN II-XII intact. 5/5 muscle strength, upper and lower extremities , bilaterally. PSYCH: Normal mood, normal affect. SKIN: Warm, dry, normal turgor. LABS Laboratory Results - last 24 hr 11/14/19 11/15/19 11/15/19 21:34 05:51 11:21 POC Glucometer 238 217 230 11/15/19 17:23 POC Glucometer 285 HOSPITAL COURSE: Lynne Pierce is an 84 year old female with a past medical history of HTN, HLD, CVA, asthma, depression, anxiety, insomnia, IDDM, chronic R foot wound, presents with right foot wound pain and admitted for R foot cellulitis. MRI noted osteomyelitis in 1st metatarsal bone, degenerative changes in first metatarsal joint with subluxation of metatarsal head. Patient had PICC line placed and will have a total of 6 weeks of antibiotics with last dose on December 23 2019. Podiatry was consulted and stated there was no acute surgical intervention needed and to continue antibiotics and follow up with podiatry outpatient. Patient had angiogram performed with vascular surgery which noted 90% stenosis of R anterior tibial artery and underwent revascularization of right anterior tibial artery with atherectomy and angioplasty. Patient had increased amounts of fluid in her lungs on admission with acute on chronic HF and was given IV Lasix and transitioned back to her home PO Lasix by discharge. Patient advised to limit her intake of salt and fluids and to have regular weights. Patient noted with microcytic anemia, FOBT negative, and was advised to have outpatiet GI workup with Upper GI series, colonoscopy, endoscopy. Patient to start taking ceftiaxone and aspirin. Patient to follow up with her PCP, tool room gear machine operator, vascular surgeon, infectious disease specialist, slps. To have weekly CBC, BMP, LFTs, ESR, CRP. Advised to have good foot hygiene and wear proper shoes. Patient and family were advised of the plan, decided to go to SNF for antibiotic administration, were in agreement, and reiterated the plan. Patient was discharged in stable medical condition. Date of Admission:11/08/19 Date of Discharge: 11/15/19 Minutes to complete discharge: 36 Discharge Summary Problems reviewed: Yes Reason For Visit: CELLULITIS Current Active Problems Diabetic peripheral vascular disease (Chronic) Foot ulcer (Chronic) Condition: Stable - Instructions Diet, Activity, Other Instructions: You were admitted for an infection of your legs. You had an MRI scan which showed an infection in your bone. You had a procedure performed that helped open up the arteries in your leg to improve blood flow in your leg. You had a catheter inserted for antibiotic administration. You will complete a course of antibiotics. MEDICATIONS START to take ceftriaxone 2gm for a total of 6 weeks. Your final dose of antibiotics will be on December 23, 2019. START to take aspirin 81mg daily. Continue to take all of your other home medications as prescribed. REFERRALS Please follow up with your primary care doctor, Dr. Van, within 1 week. Please follow up with the tool room gear machine operator, Dr. Cruz, within 1 week. Please follow up with the vascular surgeon, Dr. Velez, within 1 week. Please follow up with the infectious disease specialist, Dr. Corey, within 1 week. Please follow up with the slps, Dr. Perla, within 1 week. SPECIAL INSTRUCTIONS WEEKLY LABS CBC, BMP, LFTS, ESR, CRP WHILE ON ANTIBIOTICS It is important to limit the amount of salt in your diet and to drink too many fluids. It is very important that you maintain good feet hygeine and wear footwear that is recommended by your slps. You are advised to have an Upper GI Series radiographical exam in the future if you continue to have abdominal pain or if start to have bloody or dark stools. You will follow up with the tool room gear machine operator for a possible endoscopy and colonoscopy (camera procedure of your gastrointestinal system). Weigh yourself daily and notify doctor if weight gain > 3 lbs in 2 days. If you have any symptoms of fevers, inability to walk, increased redness and pain in your foot, worsening pain in the foot, chest pain, shortness of breath, or any other general feelings of unwellness, please call 911 or go your nearest emergency room. Referrals: Charlee Corey MD [Staff Physician] - 1 Week Elian Cruz MD [Staff Physician] - 1 Week Ginny Van MD [Primary Care Provider] - 1 Week Cherri Perla DPM [Staff Physician] - Luis Velez MD [Staff Physician] - 1 Week Disposition: [facility] - Home Medications Comprehensive Discharge Medication List: Ambulatory Orders Donepezil HCl [Aricept -] 5 mg PO DAILY 08/17/17 Buspirone HCl [Buspar -] 10 mg PO BID #60 tablet 09/11/17 metFORMIN HCL [Metformin HCl] 500 mg PO BID #0 tab 09/11/17 Insulin Degludec [Tresiba] 24 unit SQ DAILY 05/27/19 Quetiapine Fumarate [Seroquel -] 25 mg PO HS 05/27/19 Trazodone HCl 150 mg PO HS 05/27/19 Losartan Potassium 100 mg PO DAILY 05/28/19 Amlodipine Besylate [Norvasc -] 5 mg PO DAILY 10/07/19 Atorvastatin Ca [Lipitor] 10 mg PO DAILY 10/07/19 Clopidogrel Bisulfate [Clopidogrel] 75 mg PO DAILY 10/07/19 Ergocalciferol (Vitamin D2) [Vitamin D2] 50,000 unit PO WEEKLY 10/07/19 Furosemide [Lasix -] 40 mg PO DAILY #30 tablet 10/10/19 Aspirin [ASA -] 81 mg PO DAILY #30 tab.chew 11/15/19 Ceftriaxone [Rocephin -] 2 gm IVPB DAILY vial 11/15/19 Levothyroxine [Synthroid -] 50 mcg PO DAILY 11/15/19 Problem List - Problems (1) Diabetic peripheral vascular disease Code(s): E11.51 - TYPE 2 DIABETES W DIABETIC PERIPHERAL ANGIOPATH W/O GANGRENE (2) Foot ulcer Code(s): L97.509 - NON-PRESSURE CHRONIC ULCER OTH PRT UNSP FOOT W UNSP SEVERITY Qualifiers: Laterality: unspecified laterality Non-pressure ulcer stage: unspecified non-pressure ulcer stage Qualified Code(s): L97.509 - Non-pressure chronic ulcer of other part of unspecified foot with unspecified severity (3) Dementia Code(s): F03.90 - UNSPECIFIED DEMENTIA WITHOUT BEHAVIORAL DISTURBANCE (4) Diabetes mellitus Code(s): E11.9 - TYPE 2 DIABETES MELLITUS WITHOUT COMPLICATIONS (5) Diabetic foot Code(s): E11.8 - TYPE 2 DIABETES MELLITUS WITH UNSPECIFIED COMPLICATIONS (6) HTN (hypertension) Code(s): I10 - ESSENTIAL (PRIMARY) HYPERTENSION Qualifiers: Hypertension type: unspecified Qualified Code(s): I10 - Essential (primary ) hypertension (7) Heart failure Code(s): I50.9 - HEART FAILURE, UNSPECIFIED Qualifiers: Heart failure type: unspecified Heart failure chronicity: acute Qualified Code(s): I50.9 - Heart failure, unspecified (8) Leg swelling Code(s): M79.89 - OTHER SPECIFIED SOFT TISSUE DISORDERS This patient is new to me today: No Emergency Visit: Yes ED Registration Date: 11/08/19 Care time: The patient presented to the Emergency Department on the above date and was hospitalized for further evaluation of their emergent condition. Critical Care patient: No - Discharge Referral Referred to [facility] No
== END 2019-11-15 18:50 | DRG 270 ==
LOC: JER 17:06 → JERBED 22:03 → J7W 11-09 03:19
PROVIDERS: ADMIT Internal Medicine; ATTEND Hospitalist
PROC: 04CP3ZZ Extirpation of Matter from Right Anterior Tibial Artery, Percutaneous Approach (ICD-10-PCS; 2019-11-11)
PROC: 047P3ZZ Dilation of Right Anterior Tibial Artery, Percutaneous Approach (ICD-10-PCS; principal; 2019-11-11 08:00)
PROC: 02HV33Z Insertion of Infusion Device into Superior Vena Cava, Percutaneous Approach (ICD-10-PCS; 2019-11-15)
PROC: B518ZZA Fluoroscopy of Superior Vena Cava, Guidance (ICD-10-PCS; 2019-11-15)
DX: E11.51 Type 2 diabetes mellitus with diabetic peripheral angiopathy without gangrene (principal); I50.33 Acute on chronic diastolic (congestive) heart failure; L03.115 Cellulitis of right lower limb; M86.9 Osteomyelitis, unspecified; E11.69 Type 2 diabetes mellitus with other specified complication; L97.509 Non-pressure chronic ulcer of other part of unspecified foot with unspecified severity; E78.5 Hyperlipidemia, unspecified; D64.9 Anemia, unspecified; E11.621 Type 2 diabetes mellitus with foot ulcer; I11.0 Hypertensive heart disease with heart failure; F41.8 Other specified anxiety disorders; G47.00 Insomnia, unspecified; E03.9 Hypothyroidism, unspecified; J45.909 Unspecified asthma, uncomplicated; K21.9 Gastro-esophageal reflux disease without esophagitis; E88.09 Other disorders of plasma-protein metabolism, not elsewhere classified; E66.9 Obesity, unspecified; Z68.32 Body mass index [BMI] 32.0-32.9, adult
CPT/HCPCS: 36415; 36569; 71045-TC-FY; 73630-TC-RT-FY; 73720-TC; 76000-TC-FY; 77001-TC-FY; 80048; 80053; 81003; 82272; 82728; 82962; 83036; 83540; 83550; 83605; 83735; 83880; 84100; 84550; 85025; 85027; 85610; 85651; 85730; 86140; 86850; 86900; 86901; 87040; 87070; 87086; 87186; 87205; 93005; 93010; 93971-TC; 94760; 97116-GP; 97161-GP; 99285-25; C1751; J1644

== ENCOUNTER 2020-05-17 21:52 | Inpatient (IN) | payer OTHER ==
--- NOTE | 2020-05-17 22:10 | PDOC ---
ED Treatment Course - LABORATORY CBC & Chemistry Diagram: 05/17/20 22:10 05/17/20 22:10 Medical Decision Making - Medical Decision Making 05/17/20 22:10 Patient seen by the advanced practice provider under my supervision. Ancillary testing reviewed as necessary. I agree with plan as outlined by the advanced practice provider. Discharge - Discharge Information Problems reviewed: Yes Clinical Impression/Diagnosis: CHF exacerbation Qualifiers: Heart failure type: combined systolic and diastolic Qualified Code(s): I50.43 - Acute on chronic combined systolic (congestive) and diastolic (congestive) heart failure - Follow up/Referral Referrals: Ginny Van MD [Primary Care Provider] - - Patient Discharge Instructions - Post Discharge Activity
--- NOTE | 2020-05-17 22:11 | PDOC ---
History of Present Illness - General Stated Complaint: SOB Time Seen by Provider: 05/17/20 22:02 History Source: Patient Exam Limitations: No Limitations - History of Present Illness Initial Comments: 84 y.o. F PMH of hypertension, hyperlipidemia, diabetes, CHF, depression, anxiety, hypothyroidism, recent admission 04/17-04/21 and 04/30 for acute CHF exacerbation BIBA for shortness of breath. On last two admissions patient was found to have acute CHF exacerbation as well as symptomatic anemia and transfuse d 2 units. Today pt and family noted increased SOB as well as swelling in the lower extremities and an increased in JVD. Pt is not on home O2 and states she has been taking all of her medication as directed including the lasix. Pt was placed on 4L NC by EMS and states that it is helping her SOB. Pts daughter also states her mother has had increased abdominal distension and mild abdominal discomfort. Pt otherwise denies: fevers, chills, syncope, lightheadedness, dizziness, headaches, neck pain, chest pain, palpitations, back pain, nausea, vomiting, diarrhea, constipation, melena, hematochezia, dysuria, hematuria. 05/17/20 22:08 Past History - Medical History Allergies/Adverse Reactions: Allergies Allergy/AdvReac Type Severity Reaction Status Date / Time shellfish derived Allergy Verified 05/17/20 22:17 Home Medications: Ambulatory Orders Amlodipine Besylate [Norvasc -] 1 tab PO DAILY 04/17/20 Atorvastatin Ca [Lipitor] 1 tab PO AM 04/17/20 Buspirone HCl [Buspar -] 1 tab PO BID 04/17/20 Donepezil HCl 5 mg PO AM 04/17/20 Insulin Degludec [Tresiba] 40 unit SQ AM 04/17/20 Losartan Potassium 1 tab PO AM 04/17/20 Metformin HCl [Glucophage] 500 mg PO BID 04/17/20 Pantoprazole Sodium 1 tab PO AM 04/17/20 traZODone HCL [Desyrel -] 150 mg PO HS 04/17/20 Ergocalciferol (Vitamin D2) [Vitamin D2] 50,000 unit PO WEEKLY 04/28/20 Ferrous Sulfate 325 mg PO DAILY 04/28/20 Fluticasone Propionate [Flovent Hfa] 110 mcg IH DAILY 04/28/20 Levothyroxine [Synthroid -] 50 mcg PO DAILY 04/28/20 Quetiapine Fumarate [Seroquel -] 12.5 mg PO HS PRN 04/28/20 Carvedilol [Coreg] 6.25 mg PO BID 30 Days #60 tablet 04/30/20 Furosemide [Lasix] 60 mg PO DAILY 30 Days #45 tablet 04/30/20 Anemia: No Asthma: Yes Cancer: No Cardiac Disorders: No CVA: Yes (Y; TIA) COPD: No CHF: Yes Dementia: No Diabetes: Yes GI Disorders: No Disorders: No HTN: Yes Hypercholesterolemia: Yes Liver Disease: No Psychiatric Problems: Yes (anxiety) Seizures: No Thyroid Disease: Yes - Surgical History Abdominal Surgery: No Appendectomy: No Cardiac Surgery: No Cholecystectomy: Yes Lung Surgery: No Neurologic Surgery: No Orthopedic Surgery: No - Immunization History Immunization Up to Date: Yes - Psycho-Social/Smoking History Smoking History: Never smoked Have you smoked in the past 12 months: No Review of Systems - Review of Systems Constitutional: No: Chills, Fever, Loss of Appetite, Night Sweats HEENTM: No: Blurred Vision Respiratory: Yes: Orthopnea, Shortness of Breath, SOB with Exertion, SOB at Rest. No: Cough, Wheezing, Productive cough, Hemoptysis Cardiac (ROS): Yes: Edema. No: Chest Pain, Palpitations, Syncope ABD/GI: Yes: Abdominal Distended. No: Blood Streaked Bowels, Constipated, Diarrhea, Nausea, Vomiting : No: Dysuria, Discharge, Hematuria Musculoskeletal: No: Back Pain Integumentary: No: Rash Neurological: No: Headache, Numbness, Paresthesia *Physical Exam - Physical Exam 05/17/20 22:33 Gen: AAOx 3, uncomfortable on stretcher tripoding with signs of mild respiratory distress HENT: atraumatic, normocephalic with no laceration or contusion. Nasal mucosa without erythema. Oropharynx without erythema or exudates. Mucous membranes moist. EYES: PERRL, EOM intact, conjunctiva pink NECK: supple; trachea midline; JVD B/L at 45 degrees, no lymphadenopathy, or thyromegaly CV: RRR no murmurs, gallops, or rubs. CHEST: CTA b/l no wheezing, rales or rhonchi ABD: +BS very distended. no TTP; taught, no rebound, no guarding, no fluid wave EXTREMITY: no cyanosis or erythema. 2+ dorsalis pedis, posterior tibial, and radial pulse. 2+ pedal and LE edema B/L; no calf swelling or tenderness SKIN: no rash, warm and dry, no diaphoresis HEME: no purpura or ecchymosis NEURO: normal speech, CN II-XII intact, sensation intact, no cerebellar deficits MS: 5/5 strength in all extremities, FROM intact in all extremities. ED Treatment Course - LABORATORY CBC & Chemistry Diagram: 05/17/20 22:10 05/17/20 22:10 - RADIOLOGY Radiology Studies Ordered: Category Date Time Status CHEST X-RAY PORTABLE* [RAD] Stat Radiology 05/17/20 22:04 Ordered Medical Decision Making - Medical Decision Making 84 year old female with multiple comorbidities and 2 recent admissions for anemia and CHF exacerbations presenting with worsening SOB. VSS except O2 sat 98% on 4LNC EKG at triage shows NSR ar [address] elevations Plan: Labs to evaluation for anemia, cardiac, electrolyte, thyroid abnormalities Chest XR to assess for plueral effusion CT abdomen and pelvis to assess for ascites Covid screen Admission Labs Show: WBC 6.0 H&H: 9.9/31.9 Plt 361 Cr: 1.1 Na: 131 Kl 5.5 hemolyzed will repeat Trop: negative BNP:5276.8 Glucose 245 TSH: 24.2 40mg IVP Lasix given in ED XR shows: pulmonary congestion and potential R sided effusion Pending CT results pending pt admitted to medicine for further management 05/17/20 23:46 Discharge - Discharge Information Problems reviewed: Yes Clinical Impression/Diagnosis: CHF exacerbation Qualifiers: Heart failure type: combined systolic and diastolic Qualified Code(s): I50.43 - Acute on chronic combined systolic (congestive) and diastolic (congestive) heart failure - Admission Yes - Follow up/Referral Referrals: Ginny Van MD [Primary Care Provider] - - Patient Discharge Instructions - Post Discharge Activity
[2020-05-17 22:54] LABS: BASO % 0.3 % (0-2.0); EOS % 0.8 % (0-4.5); HEMATOCRIT 31.9 % (32.4-45.2); HEMOGLOBIN 9.9 GM/dL (10.7-15.3); LYMPH % 13.5 % (8-40); MCH 22.9 pg (25.7-33.7); MCHC 31.1 g/dl (32.0-36.0); MEAN CELL VOLUME 73.8 fl (80-96); MEAN PLT VOLUME 7.9 fl (7.5-11.1); MONO % 7.1 % (3.8-10.2); NEUT % 78.3 % (42.8-82.8); PLATELET COUNT 361 K/MM3 (134-434); RBC 4.33 M/mm3 (3.60-5.2); RDW 24.5 % (11.6-15.6)
[2020-05-17 23:01] LABS: INR 1.08 (0.83-1.09); PROTHROMBIN TIME (PATIENT) 12.8 SEC (9.7-13.0)
[2020-05-17 23:04] LABS: ACTIVATED PTT 35.4 SECONDS (25.2-36.5)
[2020-05-17 23:34] LABS: ANISOCYTOSIS 2+; MACROCYTOSIS 1+; OVALOCYTE 1+
[2020-05-17 23:35] LABS: ALBUMIN 2.8 g/dl (3.4-5.0); ALK PHOS 115 U/L (45-117); ANION GAP 6 MMOL/L (8-16); BILIRUBIN,TOTAL 0.5 mg/dL (0.2-1); BLOOD UREA NITROGEN 23.8 mg/dL (7-18); CALCIUM 8.4 mg/dL (8.5-10.1); CHLORIDE 96 mmol/L (98-107); CO2 28 mmol/L (21-32); CREATININE 1.1 mg/dL (0.55-1.3); GLUCOSE,RANDOM 245 mg/dL (74-106); MAGNESIUM 2.3 mg/dL (1.8-2.4); N-TERMINAL BNP 5276.8 pg/ml (5-450); PHOSPHOROUS 3.8 mg/dL (2.5-4.9); PLATELET ESTIMATE ADEQUATE; POTASSIUM 5.5 mmol/L (3.5-5.1); SGOT/AST 42 U/L (15-37); SGPT/ALT 33 U/L (13-61); SODIUM 131 mmol/L (136-145)
[2020-05-17] MEDS ORDERED: FUROSEMIDE 40 MG/4 ML INJECTABLE VIAL IVPUSH ONE (23:49)
--- NOTE | 2020-05-18 00:49 | PN ---
Teaching Attending Note Name of Resident: Chicho Cosby ATTENDING PHYSICIAN STATEMENT I saw and evaluated the patient. I reviewed the resident's note and discussed the case with the resident. I agree with the resident's findings and plan as documented. SUBJECTIVE: Patient is an 84 year old woman with a PMH of Hypertension, Hyperlipidemia, NIDD M, HFrEF (LVEF 40-45% on 04/19/2020), Depression, Anxiety and Hypothyroidism brought in by EMS for shortness of breath. Was recently admitted (04/17-04/21 and 04/27-04/30) for acute CHF exacerbation. On the last two admissions patient was found to have acute CHF exacerbation as well as symptomatic anemia and transfused 2 units. Today patient and family noted increased SOB as well as swelling in the lower extremities and an increased in JVD. Patient is not on home O2 and states she has been taking all of her medications as directed including the Lasix. Patient was placed on 4L NC by EMS and states that it is helping her SOB. Ryan's daughter also states her mother has had increased abdominal distension and mild abdominal discomfort. Has orthopnea and PND. Tested negative for COVID- 19 on 04/17/2020 and 04/28/2020. Patient denies fevers, chills, syncope, lightheadedness, dizziness, headaches, neck pain, chest pain, palpitations, back pain, nausea, vomiting, diarrhea, constipation, melena, hematochezia, dysuria or hematuria. Denies alcohol, tobacco or illicit drug use. No sick contacts or recent travels. Patient has a family history of CAD and DM. OBJECTIVE: Alert Vital Signs Period Temp Pulse Resp BP Sys/Persaud Pulse Ox Last 24 Hr 98.2 F 79-84 19-24 160-185/88-91 96-100 HEENT: No Jaundice, eye redness or discharge, PERRLA, EOMI. Normocephalic, atraumatic. External ears are normal and hearing is grossly intact. No nasal discharge. Neck: Supple, nontender. No palpable adenopathy or thyromegaly. ++JVD Chest: Good effort. Bibasilar crackles. Clear to percussion. Heart: Regular. No S3, rub or murmur Abdomen: Distended, soft, nontender and no HSM. No rebound or guarding. Normal bowel sounds. Ext: Peripheral pulses intact. Leg edema. Skin: Warm and dry. No petechiae, rash or ecchymosis. Neuro: Alert. Oriented x3. CN 2-12 grossly intact. Sensation grossly intact in all four extremities and DTR are symmetric. Psych: Sad mood; Appropriate affect. Good insight. Home Medications Medication Instructions Recorded Amlodipine Besylate [Norvasc -] 1 tab PO DAILY 04/17/20 Atorvastatin Ca [Lipitor] 1 tab PO AM 04/17/20 Buspirone HCl [Buspar -] 1 tab PO BID 04/17/20 Donepezil HCl 5 mg PO AM 04/17/20 Insulin Degludec [Tresiba] 40 unit SQ AM 04/17/20 Losartan Potassium 1 tab PO AM 04/17/20 Metformin HCl [Glucophage] 500 mg PO BID 04/17/20 Pantoprazole Sodium 1 tab PO AM 04/17/20 traZODone HCL [Desyrel -] 150 mg PO HS 04/17/20 Ergocalciferol (Vitamin D2) 50,000 unit PO WEEKLY 04/28/20 [Vitamin D2] Ferrous Sulfate 325 mg PO DAILY 04/28/20 Fluticasone Propionate [Flovent 110 mcg IH DAILY 04/28/20 Hfa] Levothyroxine [Synthroid -] 50 mcg PO DAILY 04/28/20 Quetiapine Fumarate [Seroquel -] 12.5 mg PO HS PRN 04/28/20 Carvedilol [Coreg] 6.25 mg PO BID 30 Days #60 tablet 04/30/20 Furosemide [Lasix] 60 mg PO DAILY 30 Days #45 tablet 04/30/20 Abnormal Lab Results 05/17/20 05/17/20 05/18/20 22:10 22:10 01:20 Hgb 9.9 L Hct 31.9 L D MCV 73.8 L MCH 22.9 L MCHC 31.1 L RDW 24.5 H Sodium 131 L Potassium 5.5 H Chloride 96 L Anion Gap 6 L BUN 23.8 H Random Glucose 245 H Calcium 8.4 L AST 42 H B-Natriuretic Peptide 5276.8 H Albumin 2.8 L TSH 24.20 H Urine Protein 3+ H Current Medications Generic Name Dose Route Start Last Admin Trade Name Freq PRN Reason Stop Dose Admin Amlodipine Besylate 5 mg 05/18/20 10:00 Norvasc - PO DAILY [facility] Atorvastatin Calcium 10 mg 05/18/20 22:00 Lipitor - PO HS [facility] Buspirone HCl 10 mg 05/18/20 10:00 Buspar - PO BID [facility] Carvedilol 6.25 mg 05/18/20 02:00 05/18/20 02:08 Coreg - PO 6.25 mg BID [facility] Administration Donepezil HCl 5 mg 05/18/20 22:00 Aricept - PO HS [facility] Enoxaparin Sodium 40 mg 05/18/20 10:00 Lovenox - SQ DAILY [facility] Ferrous Sulfate 325 mg 05/18/20 10:00 Feosol - PO DAILY [facility] Iron Sucrose 100 mg/ Sodium 100 mls @ 200 mls/hr 05/19/20 09:00 Chloride IVPB 05/19/20 09:29 ONCE ONE Insulin Aspart 1 vial 05/18/20 07:00 Novolog Vial Sliding Scale - SQ ACHS [facility] Protocol Levothyroxine Sodium 50 mcg 05/18/20 07:00 Synthroid - PO ACBK [facility] Mometasone Furoate 1 puff 05/18/20 22:00 Asmanex 110mcg - IH HS [facility] Non-Formulary Medication 1 tab 05/18/20 07:00 Losartan Potassium [Losartan Potassium] PO AM [facility] Pantoprazole Sodium 40 mg 05/18/20 07:00 Protonix - PO AM [facility] ASSESSMENT AND PLAN: 1. CHF exacerbation/Anasarca - Likely precipitated in part by suboptimal/ineffic acious diuresis. May need outpatient IV Lasix or make sure she is taking adequate dose of oral Lasix before breakfast. Subclinical hypothyroidism and anemia may be contributing to poor LV function. CXR shows cardiomegaly, pulmonary vascular congestion, bilateral pleural effusion, unfolded aorta and possible goiter with trachea deviation to the right. Result of CT abdomen/pelvis pending. EKG shows NSR at 82/minute and QTc [address]-T wave changes. Initial troponin is negative. Will admit to telemetry, treat with escalating doses of IV Lasix to achieve adequate diuresis, restrict dietary salt intake, monitor kidney function, get daily weight and consult Cardiology. High TSH (now 24.2) is chronic and unexplained - TSH previously peaked at 9.7 on 08/17/2017, but her T4, Free T3 and Total T3 were normal. Consult Endocrine - may need higher dose of Synthroid. Will get doppler scan of legs. Hyperkalemia and hyponatremia likely partly due to hyperglycemia. Will limit free water intake and correct hyperglycemia. Viral testing for COVID-19 ordered and patient placed on airborne, droplet and contact isolation. Started on supplemental oxygen via nasal cannula. Will continue comprehensive care for all of patients comorbid conditions including Synthroid for hypothyroidism. 2. Hypoalbuminemia - Possibly due to combined effects of proteinuria, malnutrition and inflammation associated with comorbid conditions. Will ensure adequate dietary protein intake and also consult boiler helper. 3. Uncontrolled DM For now, we will hold the home diabetes drugs and implement sliding scale insulin regimen. Provide comprehensive diabetes care with patient teaching and counseling about the importance of adherence to prescribed diabetes regimen, euglycemia, eye care and foot care. 4. Low MCV Anemia - Etiology unclear. Transferrin saturation was 6% on 11/09/2019. Will give more IV iron to premept blood transfusion. Scheduled for EGD and colonoscopy on May 24, 2020. Would benefit from Procrit therapy once iron replete. 5. Uncontrolled Hypertension Will restart suitable outpatient antihypertensive drugs when clinically appropriate. Subsequently, will revise regimen to ensure [id number] excellent BP control. Patient counseled on the injurious effects of uncontrolled hypertension. Nonpharmacologic measures to control hypertension like weight loss, salt restriction and exercise stressed. Importance of adherence to treatment regimen and attainment of normotension emphasized. 6. DVT prophylaxis - Lovenox 40 mg SQ q 24 hours. 7. Advance directives - Full code
[2020-05-18] MEDS ORDERED: FUROSEMIDE 40 MG/4 ML INJECTABLE VIAL ONE (01:36)
[2020-05-18 02:00] LABS: EPI CELLS 15 /uL (0-25.1); HYALINE CASTS 0 /uL (0-3.1); URINE APPEARANCE CLEAR; URINE BACTERIA 285 /uL (0-1359); URINE BILIRUBIN NEGATIVE (NEGATIVE); URINE COLOR YELLOW; URINE GLUCOSE (UA) NEGATIVE (NEGATIVE); URINE KETONE NEGATIVE (NEGATIVE); URINE LEUK ESTERASE NEGATIVE (NEGATIVE); URINE NITRITE NEGATIVE (NEGATIVE); URINE PROTEIN 3+ (NEGATIVE); URINE RBC 13 /uL (0-23.9); URINE WBC 5 /uL (0-25.8)
[2020-05-18] MEDS ORDERED: CARVEDILOL 3.125 MG TABLET (FP) ONE (02:06)
[2020-05-18] MEDS: CARVEDILOL 6.25 MG TABLET (FP) PO SCH ×4 (02:08→21:29)
--- NOTE | 2020-05-18 03:16 | HP ---
CHIEF COMPLAINT: Worsening SOB PCP: Melody HISTORY OF PRESENT ILLNESS: 84 year old female with reported PMH significant for HFrEF, DM, HTN, HLD, hypothyroidism, depression, anxiety, insomnia. She presented to the ER with worsening SOB since last night. Recent admission 04/27 to 04/30 for CHF exacerbation and anemia. Her Lasix was increased from 40 to 60mg, and she was also started Coreg 6.25mg BID. For her anemia (Hg 6.6) she received 2 units PRBC and Venofer. She was recommended GI F/U outpatient, and is scheduled for a colonoscopy with Dr. Cruz on 05/24. Echo during that admission was done and EF was found to be 40-45%. Pt states she has had worsening SOB since her DC last month, last night she was unable to walk due to SOB and she called her grand daughter who called an ambulance. She lives alone but daughters/grand daughters visit frequently, and she also has a visiting nurse that visits twice a week. The patient is normally able to walk around the house and also takes walks outside(under 1 block), ambulates without a cane or assistance, endorses orthopnea, PND, and uses 2 pillows at night to prop herself up. Her visiting nurse checked her BP, which was found to be elevated, however the patient was unable to recall the exact value. She denies any fevers, chills. chest pain, nausea, vomiting, diarrhea, or urinary changes. ER course was notable for: (1) BP 160/80s (2) Lasix 40mg IV (3) CT AP ordered in ER to r/o ascites Recent Travel: denies PAST MEDICAL HISTORY: DM, HTN, HLD, hypothyroidism, depression, anxiety, insomnia PAST SURGICAL HISTORY: Cholecystectomy, Social History: Smoking: denies Alcohol: denies Drugs: denies Allergies shellfish derived Allergy (Verified 05/17/20 22:17) HOME MEDICATIONS: Home Medications Medication Instructions Recorded Amlodipine Besylate [Norvasc -] 1 tab PO DAILY 04/17/20 Atorvastatin Ca [Lipitor] 1 tab PO AM 04/17/20 Buspirone HCl [Buspar -] 1 tab PO BID 04/17/20 Donepezil HCl 5 mg PO AM 04/17/20 Insulin Degludec [Tresiba] 40 unit SQ AM 04/17/20 Losartan Potassium 1 tab PO AM 04/17/20 Metformin HCl [Glucophage] 500 mg PO BID 04/17/20 Pantoprazole Sodium 1 tab PO AM 04/17/20 traZODone HCL [Desyrel -] 150 mg PO HS 04/17/20 Ergocalciferol (Vitamin D2) 50,000 unit PO WEEKLY 04/28/20 [Vitamin D2] Ferrous Sulfate 325 mg PO DAILY 04/28/20 Fluticasone Propionate [Flovent 110 mcg IH DAILY 04/28/20 Hfa] Levothyroxine [Synthroid -] 50 mcg PO DAILY 04/28/20 Quetiapine Fumarate [Seroquel -] 12.5 mg PO HS PRN 04/28/20 Carvedilol [Coreg] 6.25 mg PO BID 30 Days #60 tablet 04/30/20 Furosemide [Lasix] 60 mg PO DAILY 30 Days #45 tablet 04/30/20 REVIEW OF SYSTEMS CONSTITUTIONAL: Absent: fever, chills, diaphoresis, generalized weakness, malaise, loss of appetite, weight change HEENT: Absent: rhinorrhea, nasal congestion, throat pain, throat swelling, difficulty swallowing, mouth swelling, ear pain, eye pain, visual changes CARDIOVASCULAR: peripheral edema Absent: chest pain, syncope, palpitations, irregular heart rate, lightheadedness, peripheral edema RESPIRATORY: SOB Absent: cough, shortness of breath, dyspnea with exertion, orthopnea, wheezing, stridor, hemoptysis GASTROINTESTINAL: Absent: abdominal pain, abdominal distension, nausea, vomiting, diarrhea, constipation, melena, hematochezia GENITOURINARY: Absent: dysuria, frequency, urgency, hesitancy, hematuria, flank pain, genital pain MUSCULOSKELETAL: Absent: myalgia, arthralgia, joint swelling, back pain, neck pain SKIN: Absent: rash, itching, pallor HEMATOLOGIC/IMMUNOLOGIC: Absent: easy bleeding, easy bruising, lymphadenopathy, frequent infections ENDOCRINE: Absent: unexplained weight gain, unexplained weight loss, heat intolerance, cold intolerance NEUROLOGIC: Absent: headache, focal weakness or paresthesias, dizziness, unsteady gait, seizure, mental status changes, bladder or bowel incontinence PSYCHIATRIC: Absent: anxiety, depression, suicidal or homicidal ideation, hallucinations. PHYSICAL EXAMINATION Vital Signs - 24 hr 05/17/20 05/17/20 05/17/20 22:14 22:37 22:56 Temperature 98.2 F Pulse Rate 84 79 Pulse Rate [ Apical] Respiratory 19 19 Rate Blood Pressure 160/88 Blood Pressure [Right Arm] O2 Sat by Pulse 98 100 100 Oximetry (%) 05/18/20 01:34 Temperature Pulse Rate Pulse Rate [ 84 Apical] Respiratory 24 H Rate Blood Pressure Blood Pressure 185/91 H [Right Arm] O2 Sat by Pulse 96 Oximetry (%) GENERAL: Awake, alert, and fully oriented, appears SOB HEAD: Normal with no signs of trauma. EYES: Pupils equal, round and reactive to light, extraocular movements intact, sclera anicteric, conjunctiva clear. No lid lag. EARS, NOSE, THROAT: Ears normal, nares patent, oropharynx clear without exudates. Moist mucous membranes. NECK: JVD B/L L>R LUNGS: Poor air movement, fine crackles B/L HEART: Regular rate and rhythm, normal S1 and S2 without murmur, rub or gallop. ABDOMEN: Soft, nontender, not distended, normoactive bowel sounds, no guarding, no rebound, no masses. No hepatomegaly or splenomegaly. MUSCULOSKELETAL: Normal range of motion at all joints. No bony deformities or tenderness. No CVA tenderness. UPPER EXTREMITIES: 2+ pulses, warm, well-perfused. No cyanosis. No clubbing. No peripheral edema. LOWER EXTREMITIES: 2+ pulses, 2+ pitting edema B/L NEUROLOGICAL: Cranial nerves II-XII intact. Normal speech. Normal gait. PSYCHIATRIC: Cooperative. Good eye contact. Appropriate mood and affect. SKIN: Warm, dry, normal turgor, no rashes or lesions noted, normal capillary refill. Laboratory Results - last 24 hr 05/17/20 05/17/20 05/17/20 22:10 22:10 22:10 WBC 6.0 RBC 4.33 Hgb 9.9 L Hct 31.9 L D MCV 73.8 L MCH 22.9 L MCHC 31.1 L RDW 24.5 H Plt Count 361 MPV 7.9 Absolute Neuts (auto) 4.7 Neutrophils % 78.3 Lymphocytes % 13.5 Monocytes % 7.1 Eosinophils % 0.8 Basophils % 0.3 Nucleated RBC % 0 Hypochromia 1+ Platelet Estimate Adequate Platelet Comment Polychromasia 1+ Poikilocytosis 1+ Anisocytosis 2+ Microcytosis 1+ Macrocytosis 1+ Ovalocytes 1+ Fragmented RBCs Few PT with INR 12.80 INR 1.08 PTT (Actin FS) 35.4 Sodium 131 L Potassium 5.5 H Chloride 96 L Carbon Dioxide 28 Anion Gap 6 L BUN 23.8 H Creatinine 1.1 Est GFR (CKD-EPI)AfAm 53.77 Est GFR (CKD-EPI)NonAf 46.39 Random Glucose 245 H Calcium 8.4 L Phosphorus 3.8 Magnesium 2.3 Total Bilirubin 0.5 AST 42 H ALT 33 Alkaline Phosphatase 115 Creatine Kinase 186 Creatine Kinase Index 0.9 CK-MB (CK-2) 1.7 Troponin I < 0.02 B-Natriuretic Peptide 5276.8 H Total Protein 8.0 Albumin 2.8 L TSH 24.20 H Urine Color Urine Appearance Urine pH Ur Specific [place] Urine Protein Urine Glucose (UA) Urine Ketones Urine Blood Urine Nitrite Urine Bilirubin Urine Urobilinogen Ur Leukocyte Esterase Urine WBC (Auto) Urine RBC (Auto) Urine Casts (Auto) U Epithel Cells (Auto) Urine Bacteria (Auto) Blood Type Antibody Screen 05/17/20 05/18/20 05/18/20 22:10 01:20 01:54 WBC RBC Hgb Hct MCV MCH MCHC RDW Plt Count MPV Absolute Neuts (auto) Neutrophils % Lymphocytes % Monocytes % Eosinophils % Basophils % Nucleated RBC % Hypochromia Platelet Estimate Platelet Comment Polychromasia Poikilocytosis Anisocytosis Microcytosis Macrocytosis Ovalocytes Fragmented RBCs PT with INR INR PTT (Actin FS) Sodium Potassium 4.7 Chloride Carbon Dioxide Anion Gap BUN Creatinine Est GFR (CKD-EPI)AfAm Est GFR (CKD-EPI)NonAf Random Glucose Calcium Phosphorus Magnesium Total Bilirubin AST ALT Alkaline Phosphatase Creatine Kinase Creatine Kinase Index CK-MB (CK-2) Troponin I B-Natriuretic Peptide Total Protein Albumin TSH Urine Color Yellow Urine Appearance Clear Urine pH 7.0 Ur Specific [place] 1.024 Urine Protein 3+ H Urine Glucose (UA) Negative Urine Ketones Negative Urine Blood Negative Urine Nitrite Negative Urine Bilirubin Negative Urine Urobilinogen 1.0 Ur Leukocyte Esterase Negative Urine WBC (Auto) 5 Urine RBC (Auto) 13 Urine Casts (Auto) 0 U Epithel Cells (Auto) 15 Urine Bacteria (Auto) 285 Blood Type A POSITIVE Antibody Screen Negative ASSESSMENT/PLAN: 84 year old female with reported PMH significant for HFrEF, DM, HTN, HLD, hypothyroidism, depression, anxiety, insomnia. She presented to the ER with worsening SOB since last night, admitted for suspected CHF exacerbation. #CHF exacerbation - Pt has had several admissions for CHF exacerbation recently, the reasons for which must be explored. Patient appears to be compliant with medications, perhaps Lasix is not being absorbed adequately, may need assessment for port placement for Lasix IV. - Suspecting CHF exacerbation due to exam findings of crackles and LE edema, along with CXR findings - CXR: Cardiomegaly with L sided pulmonary edema on resume writer's read - BNP 5.2k - Lasix 60mg IV daily with strict I/Os and daily weights - Continuous cardiac monitoring - Continue 2L NC, pt not on O2 at home, attempt to down-titrate to room air if SpO2 > 93% - PT request placed - Cardio consult placed #HTN urgency - Given Lasix 40mg - Home meds continued #Hypothyroidism - TSH 24, was 9 last month - Unclear etiology, subclinical hypothyroidism? - Endocrinology consult placed #Anemia - H/H 9.9/31.9 with low MCV and elevated RDW, likely 2/2 Fe deficiency anemia - Venofer ordered - Continue home Fe PO - Outpatient F/U with Dr. Cruz on 05/24 for EGD/colonoscopy #COVID - Will r/o due to location in geographic epicenter as well as SOB and the fact that her daughter works as a hand funnel coater at [employer] (high exposure) - COVID PCR pending #Transaminitis - AST/ALT mildly elevated 42/33 with no RLQ tenderness - Will monitor for now and order RUQ US if trending upwards #FEN - Na 131, likely hypervolemic hyponatremia 2/2 volume overload, restricting fluids and will monitor - Na/DM controlled diet #Prophylaxis - Lovenox #Dispo - Will monitor in Tele and monitor I/Os as well as improvement in symptoms Visit type - Emergency Visit Emergency Visit: Yes ED Registration Date: 05/18/20 Care time: The patient presented to the Emergency Department on the above date and was hospitalized for further evaluation of their emergent condition. - New Patient This patient is new to me today: Yes Date on this admission: 05/18/20 - Critical Care Critical Care patient: No ATTENDING PHYSICIAN STATEMENT I saw and evaluated the patient. I reviewed the resident's note and discussed the case with the resident. I agree with the resident's findings and plan as documented. SUBJECTIVE: OBJECTIVE: ASSESSMENT AND PLAN:
[2020-05-18 06:16] VITALS: BMI 37.3
[2020-05-18] MEDS ORDERED: INSULIN (NOVOLOG) ASPART 100 UNITS/ML 10ML VIAL ONE ×2 (06:37→21:27)
[2020-05-18] MEDS: LEVOTHYROXINE NA 50 MCG TABLET (FP) PO SCH (06:55)
[2020-05-18] MEDS: PANTOPRAZOLE 40 MG TABLET PO SCH (06:55)
[2020-05-18] MEDS ORDERED: PATIENT'S OWN MEDICATION (NON-FORMULARY) (Losartan Potassium [Losartan Potassium] 1 TAB) PO SCH (07:00)
[2020-05-18 07:01] LABS: HEMATOCRIT 30.4 % (32.4-45.2); HEMOGLOBIN 9.3 GM/dL (10.7-15.3); MCH 22.2 pg (25.7-33.7); MCHC 30.5 g/dl (32.0-36.0); MEAN CELL VOLUME 72.8 fl (80-96); MEAN PLT VOLUME 7.9 fl (7.5-11.1); PLATELET COUNT 318 K/MM3 (134-434); RBC 4.17 M/mm3 (3.60-5.2); WHITE BLOOD COUNT 5.1 K/mm3 (4.0-10.0)
[2020-05-18 07:20] LABS: ALBUMIN 3.3 g/dl (3.4-5.0); BILIRUBIN,TOTAL 0.7 mg/dL (0.2-1); BLOOD UREA NITROGEN 22.7 mg/dL (7-18); CALCIUM 8.3 mg/dL (8.5-10.1); MAGNESIUM 2.1 mg/dL (1.8-2.4); PHOSPHOROUS 4.4 mg/dL (2.5-4.9); POTASSIUM 4.4 mmol/L (3.5-5.1); TOT PROT 7.6 g/dl (6.4-8.2)
[2020-05-18] MEDS: INSULIN SLIDING SCALE (NOVOLOG) 1 VIAL SQ SCH ×4 (08:20→21:28)
--- NOTE | 2020-05-18 09:47 | CON.CARD ---
Consult Consult Specialty:: Cardiology Referred by:: Hospitalist Medicine Reason for Consultation:: Recurrent CHF - History of Present Illness Chief Complaint: Dyspnea History of Present Illness: 84 y/o F with hx of HFrEF (LVEF 40-45% on 04/19/2020 with exacerbations in 04/17-04/21 and 04/27-04/30),HTN, HLD, ?TIA/CVA, hypothyroidism, asthma, depression, anxiety, insomnia, IDDM, chronic R foot wound c/b osteo s/p tx with prolonged outpatient IV abx treatment, anemia requiring transfusions presented with shortness of breath, abd distension, swelling in the lower extremities, orthopnea and PND. She reports medication compliance, but does add salt to diet and uses Advil for MARQUEZ. Patient denies fevers, chills, syncope, lightheadedness, dizziness, headaches, neck pain, chest pain, palpitations, back pain, nausea, vomiting, diarrhea, constipation, melena, hematochezia, dysuria or hematuria. Denies alcohol, tobacco or illicit drug use. No sick contacts or recent travels. Patient has a family history of CAD and DM. 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, Other (cataract) Cardio/Vascular: Yes: HTN Gastrointestinal: Yes: GERD Renal/: Yes: Renal Inusuff ...: No Psych: Yes: Anxiety Endocrine: Yes: Diabetes Mellitus - Past Surgical History Past Surgical History: Yes: Cholecystectomy, - Alcohol/Substance Use Hx Alcohol Use: No History of Substance Use: reports: None - Smoking History Smoking history: Never smoked Have you smoked in the past 12 months: No - Social History Usual Living Arrangement: Alone ADL: Independent Occupation: retired History of Recent Travel: No Home Medications - Allergies Allergies/Adverse Reactions: Allergies Allergy/AdvReac Type Severity Reaction Status Date / Time shellfish derived Allergy Verified 05/17/20 22:17 - Home Medications Home Medications: Ambulatory Orders Amlodipine Besylate [Norvasc -] 1 tab PO DAILY 04/17/20 Atorvastatin Ca [Lipitor] 1 tab PO AM 04/17/20 Buspirone HCl [Buspar -] 1 tab PO BID 04/17/20 Donepezil HCl 5 mg PO AM 04/17/20 Insulin Degludec [Tresiba] 40 unit SQ AM 04/17/20 Losartan Potassium 1 tab PO AM 04/17/20 Metformin HCl [Glucophage] 500 mg PO BID 04/17/20 Pantoprazole Sodium 1 tab PO AM 04/17/20 traZODone HCL [Desyrel -] 150 mg PO HS 04/17/20 Ergocalciferol (Vitamin D2) [Vitamin D2] 50,000 unit PO WEEKLY 04/28/20 Ferrous Sulfate 325 mg PO DAILY 04/28/20 Fluticasone Propionate [Flovent Hfa] 110 mcg IH DAILY 04/28/20 Levothyroxine [Synthroid -] 50 mcg PO DAILY 04/28/20 Quetiapine Fumarate [Seroquel -] 12.5 mg PO HS PRN 04/28/20 Carvedilol [Coreg] 6.25 mg PO BID 30 Days #60 tablet 04/30/20 Furosemide [Lasix] 60 mg PO DAILY 30 Days #45 tablet 04/30/20 Review of Systems - Review of Systems Cardiovascular: reports: Edema Respiratory: reports: Orthopnea, SOB Vital Signs: Vital Signs Temperature 98.0 F 05/18/20 08:42 Pulse Rate 69 05/18/20 08:42 Respiratory Rate 18 05/18/20 08:42 Blood Pressure 151/76 05/18/20 08:42 O2 Sat by Pulse Oximetry (%) 98 05/18/20 06:05 Constitutional: Yes: No Distress, Calm Neck: Yes: Supple Respiratory: Yes: Regular, Diminished, On Nasal O2 Gastrointestinal: Yes: Normal Bowel Sounds, Soft, Abdomen, Obese Cardiovascular: Yes: Regular Rate and Rhythm JVD: No Carotid Bruit: No Heart Sounds: Yes: S1, S2 Murmur: Yes: Systolic Murmur, Grade 1 Edema: Yes Edema: LLE: 2+, RLE: 2+ - Other Data Labs, Other Data: CBC, BMP 05/18/20 05:23 05/18/20 05:23 INR, PTT INR 1.08 (0.83-1.09) 05/17/20 22:10 Troponin, BNP 05/17/20 22:10 Troponin I < 0.02 B-Natriuretic Peptide 5276.8 H Troponin, BNP 05/17/20 22:10 Troponin I < 0.02 B-Natriuretic Peptide 5276.8 H NSR @ 82 PRWP Tele: NSR Ejection Fraction %: LVEF > or = 40 % Assessment/Plan Problem List - Problems (1) CHF exacerbation Code(s): I50.9 - HEART FAILURE, UNSPECIFIED Qualifiers: Heart failure type: combined systolic and diastolic Qualified Code(s): I50.43 - Acute on chronic combined systolic (congestive) and diastolic (congestive) heart failure (2) Hypercholesterolemia Code(s): E78.00 - PURE HYPERCHOLESTEROLEMIA, UNSPECIFIED (3) SOB (shortness of breath) Code(s): R06.02 - SHORTNESS OF BREATH (4) Diabetes mellitus Code(s): E11.9 - TYPE 2 DIABETES MELLITUS WITHOUT COMPLICATIONS Qualifiers: Diabetes mellitus type: type 2 (5) HTN (hypertension) Code(s): I10 - ESSENTIAL (PRIMARY) HYPERTENSION Qualifiers: Hypertension type: essential hypertension Qualified Code(s): I10 - Essential (primary) hypertension (6) Leg swelling Code(s): M79.89 - OTHER SPECIFIED SOFT TISSUE DISORDERS (7) Thyroid disease Code(s): E07.9 - DISORDER OF THYROID, UNSPECIFIED Assessment/Plan 05/18/[address]: Bilateral effusions R>L, small pericardial effusion, anasarca, trace ascites 04/19/2020 Echo: Mild-mod decreased LVEF 40-45%, mild dilated and decreased RV systolic function, mild LAE, mild MR, TR, AR, tr MN 04/18/[address]: Cardiomegaly and small pericardial effusion, pulm vasc congestion with mild-mod right effusion and basilar ATX 1. Acute on chronic diastolic/systolic heart failure in context of abnormal TSH, diet indiscretion and NSAID use, Covid negative 2. HTN heart disease, BP not at goal 3. Hypercholesterolemia 4. H/o ?TIA vs. CVA 5. Type 2 DM not at goal control 5. History of osteomyelitis 7. Anemia 8. Hypothyroid per TSH PLAN: 1. IV diuresis monitor diuretic response, renal function and electrolytes, check FT4 and adjust synthroid dose 2. Continue Norvasc 5 mg QD, Lipitor 10 mg QHS, losartan 50 qd, carvedilol 6.25 bid and uptitrate as hemodynamics tolerate 3. Off ASA and Plavix given anemia, scheduled for EGD and colonoscopy on May 24, 2020 once euvolemic, continue PPI, DVT prophylaxis with caution 4. BD, O2 as needed, f/u COVID 19 testing, counselled on diet and med compliance, NSAID avoidance, compression therapy 5. Thank you for consultative opportunity
[2020-05-18] MEDS: FUROSEMIDE 40 MG/4 ML INJECTABLE VIAL IVPUSH SCH (09:52)
[2020-05-18] MEDS: amLODIPine BESYLATE 5 MG TABLET (FP) PO SCH (09:53)
[2020-05-18] MEDS: FERROUS SO4 325 MG TABLET (FP) PO SCH (09:53)
[2020-05-18] MEDS ORDERED: ENOXAPARIN NA (PORCINE) 40 MG/0.4 ML DISP.SYRIN SQ SCH (10:00)
[2020-05-18] MEDS ORDERED: PATIENT'S OWN MEDICATION (NON-FORMULARY) (Ferrous Sulfate [Ferrous Sulfate] 325 MG) PO SCH (10:00)
[2020-05-18] MEDS ORDERED: PATIENT'S OWN MEDICATION (NON-FORMULARY) (Fluticasone Propionate [Flovent Hfa] 110 MCG) IH SCH (10:00)
[2020-05-18] MEDS: busPIRone HCL 10 MG TABLET (FP) PO SCH ×2 (10:22→21:28)
[2020-05-18] MEDS: LOSARTAN POTASSIUM 50 MG TABLET (FP) PO SCH (12:40)
--- NOTE | 2020-05-18 13:41 | PN ---
Teaching Attending Note Name of Resident: Sedrick Ward ATTENDING PHYSICIAN STATEMENT I saw and evaluated the patient. I reviewed the resident's note and discussed the case with the resident. I agree with the resident's findings and plan as documented. SUBJECTIVE: Feeling better, less SOB. OBJECTIVE: Afebrile, Hemodynamicaly Stable. Last Vital Signs Temp Pulse Resp BP Pulse Ox 98.0 F 69 18 151/76 92 L 05/18/20 08:42 05/18/20 08:42 05/18/20 08:42 05/18/20 08:42 05/18/20 09:00 HEENT - Atraumatic, Normocephalic. Heart - S1, S2, RRR Lungs - basal crackles. [place] - Soft, Non-tender. Bowel Sounds normal. Extremities - LE edema ++ R>L. No calf tenderness. Laboratory Results - last 24 hr 05/17/20 05/17/20 05/17/20 22:10 22:10 22:10 WBC 6.0 RBC 4.33 Hgb 9.9 L Hct 31.9 L D MCV 73.8 L MCH 22.9 L MCHC 31.1 L RDW 24.5 H Plt Count 361 MPV 7.9 Absolute Neuts (auto) 4.7 Neutrophils % 78.3 Lymphocytes % 13.5 Monocytes % 7.1 Eosinophils % 0.8 Basophils % 0.3 Nucleated RBC % 0 Hypochromia 1+ Platelet Estimate Adequate Platelet Comment Polychromasia 1+ Poikilocytosis 1+ Anisocytosis 2+ Microcytosis 1+ Macrocytosis 1+ Ovalocytes 1+ Fragmented RBCs Few PT with INR 12.80 INR 1.08 PTT (Actin FS) 35.4 Sodium 131 L Potassium 5.5 H Chloride 96 L Carbon Dioxide 28 Anion Gap 6 L BUN 23.8 H Creatinine 1.1 Est GFR (CKD-EPI)AfAm 53.77 Est GFR (CKD-EPI)NonAf 46.39 POC Glucometer Random Glucose 245 H Calcium 8.4 L Phosphorus 3.8 Magnesium 2.3 Total Bilirubin 0.5 AST 42 H ALT 33 Alkaline Phosphatase 115 Creatine Kinase 186 Creatine Kinase Index 0.9 CK-MB (CK-2) 1.7 Troponin I < 0.02 B-Natriuretic Peptide 5276.8 H Total Protein 8.0 Albumin 2.8 L TSH 24.20 H Urine Color Urine Appearance Urine pH Ur Specific Greer Urine Protein Urine Glucose (UA) Urine Ketones Urine Blood Urine Nitrite Urine Bilirubin Urine Urobilinogen Ur Leukocyte Esterase Urine WBC (Auto) Urine RBC (Auto) Urine Casts (Auto) U Epithel Cells (Auto) Urine Bacteria (Auto) Blood Type Antibody Screen 05/17/20 05/18/20 05/18/20 22:10 01:20 01:54 WBC RBC Hgb Hct MCV MCH MCHC RDW Plt Count MPV Absolute Neuts (auto) Neutrophils % Lymphocytes % Monocytes % Eosinophils % Basophils % Nucleated RBC % Hypochromia Platelet Estimate Platelet Comment Polychromasia Poikilocytosis Anisocytosis Microcytosis Macrocytosis Ovalocytes Fragmented RBCs PT with INR INR PTT (Actin FS) Sodium Potassium 4.7 Chloride Carbon Dioxide Anion Gap BUN Creatinine Est GFR (CKD-EPI)AfAm Est GFR (CKD-EPI)NonAf POC Glucometer Random Glucose Calcium Phosphorus Magnesium Total Bilirubin AST ALT Alkaline Phosphatase Creatine Kinase Creatine Kinase Index CK-MB (CK-2) Troponin I B-Natriuretic Peptide Total Protein Albumin TSH Urine Color Yellow Urine Appearance Clear Urine pH 7.0 Ur Specific Greer 1.024 Urine Protein 3+ H Urine Glucose (UA) Negative Urine Ketones Negative Urine Blood Negative Urine Nitrite Negative Urine Bilirubin Negative Urine Urobilinogen 1.0 Ur Leukocyte Esterase Negative Urine WBC (Auto) 5 Urine RBC (Auto) 13 Urine Casts (Auto) 0 U Epithel Cells (Auto) 15 Urine Bacteria (Auto) 285 Blood Type A POSITIVE Antibody Screen Negative 05/18/20 05/18/20 05/18/20 05:23 05:23 06:58 WBC 5.1 RBC 4.17 Hgb 9.3 L Hct 30.4 L MCV 72.8 L MCH 22.2 L MCHC 30.5 L RDW 24.0 H Plt Count 318 MPV 7.9 Absolute Neuts (auto) Neutrophils % Lymphocytes % Monocytes % Eosinophils % Basophils % Nucleated RBC % Hypochromia Platelet Estimate Platelet Comment Polychromasia Poikilocytosis Anisocytosis Microcytosis Macrocytosis Ovalocytes Fragmented RBCs PT with INR INR PTT (Actin FS) Sodium 132 L Potassium 4.4 Chloride 97 L Carbon Dioxide 29 Anion Gap 6 L BUN 22.7 H Creatinine 1.0 Est GFR (CKD-EPI)AfAm 60.33 Est GFR (CKD-EPI)NonAf 52.06 POC Glucometer 139 Random Glucose 143 H Calcium 8.3 L Phosphorus 4.4 Magnesium 2.1 Total Bilirubin 0.7 AST 22 ALT 29 Alkaline Phosphatase 103 Creatine Kinase Creatine Kinase Index CK-MB (CK-2) Troponin I B-Natriuretic Peptide Total Protein 7.6 Albumin 3.3 L TSH Urine Color Urine Appearance Urine pH Ur Specific Greer Urine Protein Urine Glucose (UA) Urine Ketones Urine Blood Urine Nitrite Urine Bilirubin Urine Urobilinogen Ur Leukocyte Esterase Urine WBC (Auto) Urine RBC (Auto) Urine Casts (Auto) U Epithel Cells (Auto) Urine Bacteria (Auto) Blood Type Antibody Screen 05/18/20 11:22 WBC RBC Hgb Hct MCV MCH MCHC RDW Plt Count MPV Absolute Neuts (auto) Neutrophils % Lymphocytes % Monocytes % Eosinophils % Basophils % Nucleated RBC % Hypochromia Platelet Estimate Platelet Comment Polychromasia Poikilocytosis Anisocytosis Microcytosis Macrocytosis Ovalocytes Fragmented RBCs PT with INR INR PTT (Actin FS) Sodium Potassium Chloride Carbon Dioxide Anion Gap BUN Creatinine Est GFR (CKD-EPI)AfAm Est GFR (CKD-EPI)NonAf POC Glucometer 142 Random Glucose Calcium Phosphorus Magnesium Total Bilirubin AST ALT Alkaline Phosphatase Creatine Kinase Creatine Kinase Index CK-MB (CK-2) Troponin I B-Natriuretic Peptide Total Protein Albumin TSH Urine Color Urine Appearance Urine pH Ur Specific Greer Urine Protein Urine Glucose (UA) Urine Ketones Urine Blood Urine Nitrite Urine Bilirubin Urine Urobilinogen Ur Leukocyte Esterase Urine WBC (Auto) Urine RBC (Auto) Urine Casts (Auto) U Epithel Cells (Auto) Urine Bacteria (Auto) Blood Type Antibody Screen Current Medications Generic Name Dose Route Start Last Admin Trade Name Freq PRN Reason Stop Dose Admin Amlodipine Besylate 5 mg 05/18/20 10:00 05/18/20 09:53 Norvasc - PO 5 mg DAILY [facility]ISON Administration Atorvastatin Calcium 10 mg 05/18/20 22:00 Lipitor - PO HS [facility] Buspirone HCl 10 mg 05/18/20 10:00 05/18/20 10:22 Buspar - PO 10 mg BID [facility] Administration Carvedilol 6.25 mg 05/18/20 02:00 05/18/20 09:53 Coreg - PO 6.25 mg BID EDISON Administration Donepezil HCl 5 mg 05/18/20 22:00 Aricept - PO HS [facility] Enoxaparin Sodium 40 mg 05/18/20 10:00 05/18/20 09:52 Lovenox - SQ 40 mg DAILY [facility] Administration Ferrous Sulfate 325 mg 05/18/20 10:00 05/18/20 09:53 Feosol - PO 325 mg DAILY [facility]ISON Administration Furosemide 60 mg 05/18/20 10:00 05/18/20 09:52 Lasix Injection - IVPUSH 60 mg DAILY [facility] Administration Furosemide 40 mg 05/18/20 14:00 Lasix Injection - IVPUSH 05/18/20 14:01 ONCE ONE Iron Sucrose 100 mg/ Sodium 100 mls @ 200 mls/hr 05/19/20 09:00 Chloride IVPB 05/19/20 09:29 ONCE ONE Insulin Aspart 1 vial 05/18/20 07:00 05/18/20 11:24 Novolog Vial Sliding Scale - SQ Not Given ACHS [facility] Protocol Levothyroxine Sodium 50 mcg 05/18/20 07:00 05/18/20 06:55 Synthroid - PO 50 mcg ACBK [facility] Administration Losartan Potassium 50 mg 05/18/20 11:30 05/18/20 12:40 Cozaar - PO 50 mg DAILY [facility] Administration Mometasone Furoate 1 puff 05/18/20 22:00 Asmanex 110mcg - IH [facility] Pantoprazole Sodium 40 mg 05/18/20 07:00 05/18/20 06:55 Protonix - PO 40 mg AM [facility]ISON Administration Home Medications Medication Instructions Recorded Amlodipine Besylate [Norvasc -] 1 tab PO DAILY 04/17/20 Atorvastatin Ca [Lipitor] 1 tab PO AM 04/17/20 Buspirone HCl [Buspar -] 1 tab PO BID 04/17/20 Donepezil HCl 5 mg PO AM 04/17/20 Insulin Degludec [Tresiba] 40 unit SQ AM 04/17/20 Losartan Potassium 1 tab PO AM 04/17/20 Metformin HCl [Glucophage] 500 mg PO BID 04/17/20 Pantoprazole Sodium 1 tab PO AM 04/17/20 traZODone HCL [Desyrel -] 150 mg PO HS 04/17/20 Ergocalciferol (Vitamin D2) 50,000 unit PO WEEKLY 04/28/20 [Vitamin D2] Ferrous Sulfate 325 mg PO DAILY 04/28/20 Fluticasone Propionate [Flovent 110 mcg IH DAILY 04/28/20 Hfa] Levothyroxine [Synthroid -] 50 mcg PO DAILY 04/28/20 Quetiapine Fumarate [Seroquel -] 12.5 mg PO HS PRN 04/28/20 Carvedilol [Coreg] 6.25 mg PO BID 30 Days #60 tablet 04/30/20 Furosemide [Lasix] 60 mg PO DAILY 30 Days #45 tablet 04/30/20 ASSESSMENT AND PLAN: 84 year old female with history of Dementia, Chronic Systolic CHF, DM 2, HTN, HLD, Hx TIA/CVA, Hypothyroidism, Depression, Anxiety, Insomnia, presented with increasing SOB, orthopnea and PND. 1. Acute on Chronic Systolic CHF exacerbation CXR - pulmonary vascular congestion CT Chest - Bilateral pleural effusions R>L, cardiomegaly, small pericardial effusion, trace ascites Echo 04/19/20 - EF 40-45% BNP 5276 Lasix 60mg IVP Daily Cardiology eval. Daily weight, I/Os Monitor Renal Function. 2. HTN - uncontrolled on admission, now better controlled on resuming home meds Norvasc, Coreg, Losartan. 3. Hypothyroidism, TSH above target at 24 Normally on Levothyroxine 50mcg daily Endocrinology consulted. 4. Microcytic Anemia, DONNA Previously required PRBC transfusion/IV Venofer. On FeSO4 at home. Scheduled for EGD/Waddy with Dr. Cruz 05/24/20 Previously on Aspirin/Plavix, held due to DONNA 5. RLE > LLE US Duples LEs to exclude DVT. 6. Enlarged Uterus with Endometrial Thickening Transvaginal US requested. For OBGYN referral as out-patient for further evaluation if no acute issues on TV US. 7. HLD - continue Statin. 8. Dementia/Depression/Anxiety - continue Donepezil, Buspirone, Seroquel. 9. DM 2 - Tresiba/Metformin held. Maintain on Novolog sliding scale. DVT Px - cautious Heparin SQ GI Px - PPI.
[2020-05-18] MEDS ORDERED: FUROSEMIDE 40 MG/4 ML INJECTABLE VIAL IVPUSH ONE (14:00)
--- NOTE | 2020-05-18 14:07 | EKG ---
Test Reason : Blood Pressure : / mmHG Vent. Rate : 082 BPM Atrial Rate : 082 BPM P-R Int : 180 ms QRS Dur : 082 ms QT Int : 384 ms P-R-T Axes : 057 032 058 degrees QTc Int : 448 ms NORMAL SINUS RHYTHM CANNOT RULE OUT ANTERIOR INFARCT , AGE UNDETERMINED ABNORMAL ECG WHEN COMPARED WITH ECG OF 27-APR-2020 15:19, NONSPECIFIC T WAVE ABNORMALITY NO LONGER EVIDENT IN INFERIOR LEADS Confirmed by TAWNYA MORRIS, HUMPHREY ([id number]) on 05/18/2020 2:06:51 PM Referred By: Confirmed By:HUMPHREY BOWLING MD
--- NOTE | 2020-05-18 19:13 | CONSULT ---
Consult Consult Specialty:: ENDOCRINE Referred by:: DR.YOUSEPH SCOTT Reason for Consultation:: HYPOTHYROIDISM - History of Present Illness Chief Complaint: WEAK AND TIRED History of Present Illness: 84 Y FEMALE,PMH HYPOTHYROIDISM,DMT2, HTN, HLD, CVA with no residual deficits, asthma, depression, anxiety, admitted with weakness,dyspnea,,chf,cad,has difficulty remembering recent events,cold intolerant and dry skin.denies fever o r chills. - Past Medical History [employer]: Yes: Peripheral Neuropathy, Other (cataract) Cardio/Vascular: Yes: HTN Gastrointestinal: Yes: GERD Renal/: Yes: Renal Inusuff ...: No Psych: Yes: Anxiety Endocrine: Yes: Diabetes Mellitus - Past Surgical History Past Surgical History: Yes: Cholecystectomy, - Alcohol/Substance Use Hx Alcohol Use: No History of Substance Use: reports: None - Smoking History Smoking history: Never smoked Have you smoked in the past 12 months: No - Social History Usual Living Arrangement: Alone ADL: Independent Occupation: retired History of Recent Travel: No Home Medications - Allergies Allergies/Adverse Reactions: Allergies Allergy/AdvReac Type Severity Reaction Status Date / Time shellfish derived Allergy Verified 05/17/20 22:17 - Home Medications Home Medications: Ambulatory Orders Amlodipine Besylate [Norvasc -] 1 tab PO DAILY 04/17/20 Atorvastatin Ca [Lipitor] 1 tab PO AM 04/17/20 Buspirone HCl [Buspar -] 1 tab PO BID 04/17/20 Donepezil HCl 5 mg PO AM 04/17/20 Insulin Degludec [Tresiba] 40 unit SQ AM 04/17/20 Losartan Potassium 1 tab PO AM 04/17/20 Metformin HCl [Glucophage] 500 mg PO BID 04/17/20 Pantoprazole Sodium 1 tab PO AM 04/17/20 traZODone HCL [Desyrel -] 150 mg PO HS 04/17/20 Ergocalciferol (Vitamin D2) [Vitamin D2] 50,000 unit PO WEEKLY 04/28/20 Ferrous Sulfate 325 mg PO DAILY 04/28/20 Fluticasone Propionate [Flovent Hfa] 110 mcg IH DAILY 04/28/20 Levothyroxine [Synthroid -] 50 mcg PO DAILY 04/28/20 Quetiapine Fumarate [Seroquel -] 12.5 mg PO HS PRN 04/28/20 Carvedilol [Coreg] 6.25 mg PO BID 30 Days #60 tablet 04/30/20 Furosemide [Lasix] 60 mg PO DAILY 30 Days #45 tablet 04/30/20 Review of Systems - Review of Systems Constitutional: reports: Lethargy Eyes: reports: No Symptoms HENT: reports: No Symptoms Neck: reports: No Symptoms Cardiovascular: reports: Shortness of Breath Respiratory: reports: Exercise Intolerance, SOB, SOB on Exertion Gastrointestinal: reports: Bloating, Constipation Genitourinary: reports: No Symptoms Breasts: reports: No Symptoms Reported Integumentary: reports: Pruritis Neurological: reports: Numbness Endocrine: reports: Unexplained Weight Gain Physical Exam Vital Signs: Vital Signs Temperature 98.0 F 05/18/20 18:35 Pulse Rate 76 05/18/20 18:35 Respiratory Rate 18 05/18/20 18:35 Blood Pressure 178/91 H 05/18/20 18:35 O2 Sat by Pulse Oximetry (%) 92 L 05/18/20 09:00 Constitutional: Yes: Well Nourished Labs: CBC, BMP 05/18/20 05:23 05/18/20 05:23 Problem List - Problems (1) Hypothyroid Code(s): E03.9 - HYPOTHYROIDISM, UNSPECIFIED (2) SOB (shortness of breath) Code(s): R06.02 - SHORTNESS OF BREATH (3) Anemia Code(s): D64.9 - ANEMIA, UNSPECIFIED (4) Anxiety Code(s): F41.9 - ANXIETY DISORDER, UNSPECIFIED (5) Dementia Code(s): F03.90 - UNSPECIFIED DEMENTIA WITHOUT BEHAVIORAL DISTURBANCE Assessment/Plan Current Active Problems HYPOTHYROIDISM KWAKU CHF exacerbation (Acute) Abnormal Lab Results 05/17/20 05/17/20 05/18/20 22:10 22:10 01:20 Hgb 9.9 L Hct 31.9 L D MCV 73.8 L MCH 22.9 L MCHC 31.1 L RDW 24.5 H Sodium 131 L Potassium 5.5 H Chloride 96 L Anion Gap 6 L BUN 23.8 H Random Glucose 245 H Calcium 8.4 L AST 42 H B-Natriuretic Peptide 5276.8 H Albumin 2.8 L TSH 24.20 H Urine Protein 3+ H 05/18/20 05/18/20 05:23 05:23 Hgb 9.3 L Hct 30.4 L MCV 72.8 L MCH 22.2 L MCHC 30.5 L RDW 24.0 H Sodium 132 L Potassium Chloride 97 L Anion Gap 6 L BUN 22.7 H Random Glucose 143 H Calcium 8.3 L AST B-Natriuretic Peptide Albumin 3.3 L TSH Urine Protein PLAN: SYNTHROID DOSE 50MCG TITRATE SLOWLY SINCE AGE AND CARDIAC RISKS FREE T4 PENDING GIVE MEDICATION ALONE
[2020-05-18] MEDS ORDERED: PT OWN MED DRAWER 7, Y5N ONE (20:56)
[2020-05-18] MEDS: ATORVASTATIN CA 10 MG TABLET (FP) PO SCH (21:29)
[2020-05-18] MEDS: traZODone HCL 50 MG TABLET (FP) PO SCH (21:29)
[2020-05-18] MEDS: QUEtiapine FUMARATE 25 MG TABLET PO PRN (21:30)
[2020-05-18] MEDS: MOMETASONE FUROATE 110 MCG/IH INHALER IH SCH (21:37)
[2020-05-18] MEDS ORDERED: DONEPEZIL HCL 5 MG TABLET (FP) PO SCH (22:00)
[2020-05-18] MEDS ORDERED: ALBUTEROL SO4 HFA INHALER IH ONE (22:26)
[2020-05-19] MEDS: LEVOTHYROXINE NA 50 MCG TABLET (FP) PO SCH (06:20)
[2020-05-19] MEDS: PANTOPRAZOLE 40 MG TABLET PO SCH (06:20)
[2020-05-19] MEDS: HEPARIN NA (PORCINE) 5,000 UNITS/ML 1ML VIAL SQ SCH ×3 (06:20→21:18)
[2020-05-19] MEDS: INSULIN SLIDING SCALE (NOVOLOG) 1 VIAL SQ SCH ×4 (06:20→21:21)
--- NOTE | 2020-05-19 06:54 | PN ---
Progress Note, Physician Chief Complaint: " I have too much asthma" Feels SOB. LE dopplers negative for DVTS Denies CP/Palps/dizziness TELE: NSR with APCs History of Present Illness: Acute CHF H/o CVAs Type 2DM Hypothyroidism Cognitive impairment Anemia SH: Non smoker PCP: Dr. Van WEIGHT DOWN 208lbs from 210 - Current Medication List Current Medications: Active Medications Amlodipine Besylate (Norvasc -) 5 mg PO DAILY [facility] Last Admin: 05/18/20 09:53 Dose: 5 mg Documented by: Atorvastatin Calcium (Lipitor -) 10 mg PO HS [facility] Last Admin: 05/18/20 21:29 Dose: 10 mg Documented by: Buspirone HCl (Buspar -) 10 mg PO BID [facility] Last Admin: 05/18/20 21:28 Dose: 10 mg Documented by: Carvedilol (Coreg -) 6.25 mg PO BID [facility] Last Admin: 05/18/20 21:29 Dose: Not Given Documented by: Ferrous Sulfate (Feosol -) 325 mg PO DAILY [facility] Last Admin: 05/18/20 09:53 Dose: 325 mg Documented by: Furosemide (Lasix Injection -) 60 mg IVPUSH DAILY [facility] Last Admin: 05/18/20 09:52 Dose: 60 mg Documented by: Heparin Sodium (Porcine) (Heparin -) 5,000 unit SQ TID [facility] Last Admin: 05/19/20 06:20 Dose: 5,000 unit Documented by: Iron Sucrose 100 mg/ Sodium (Chloride) 100 mls @ 200 mls/hr IVPB ONCE ONE Stop: 05/19/20 09:29 Insulin Aspart (Novolog Vial Sliding Scale -) 1 vial SQ [facility]; Protocol Last Admin: 05/19/20 06:20 Dose: Not Given Documented by: Levothyroxine Sodium (Synthroid -) 50 mcg PO ACBK [facility] Last Admin: 05/19/20 06:20 Dose: 50 mcg Documented by: Losartan Potassium (Cozaar -) 50 mg PO DAILY [facility] Last Admin: 05/18/20 12:40 Dose: 50 mg Documented by: Mometasone Furoate (Asmanex 110mcg -) 1 puff IH HS [facility] Last Admin: 05/18/20 21:37 Dose: 1 puff Documented by: Pantoprazole Sodium (Protonix -) 40 mg PO AM [facility] Last Admin: 05/19/20 06:20 Dose: 40 mg Documented by: Quetiapine Fumarate (Seroquel -) 12.5 mg PO HS PRN PRN Reason: INSOMNIA Last Admin: 05/18/20 21:30 Dose: 12.5 mg Documented by: Trazodone HCl (Desyrel -) 150 mg PO HS [facility] Last Admin: 05/18/20 21:29 Dose: 150 mg Documented by: - Objective Vital Signs: Vital Signs Temperature 97.5 F L 05/19/20 02:00 Pulse Rate 61 05/19/20 02:00 Respiratory Rate 20 05/19/20 02:00 Blood Pressure 134/86 05/19/20 02:00 O2 Sat by Pulse Oximetry (%) 95 05/18/20 22:00 Constitutional: Yes: No Distress Eyes: Yes: Conjunctiva Clear, EOM Intact Neck: Yes: Supple Cardiovascular: Yes: Regular Rate and Rhythm Respiratory: Yes: Rhonchi, Wheezes (scattered expiratory wheezing, mild) Gastrointestinal: Yes: Soft (nt) Edema: Yes Edema: LLE: 1+, RLE: 1+ Peripheral Pulses WNL: Yes Neurological: Yes: Alert, Oriented Labs: CBC, BMP 05/18/20 05:23 05/18/20 05:23 INR, PTT INR 1.08 (0.83-1.09) 05/17/20 22:10 - ....Imaging EKG: Image Reviewed Assessment/Plan Assessment/Plan 05/18/[address]: Bilateral effusions R>L, small pericardial effusion, anasarca, trace ascites 04/19/2020 Echo: Mild-mod decreased LVEF 40-45%, mild dilated and decreased RV systolic function, mild LAE, mild MR, TR, AR, tr MT 04/18/[address]: Cardiomegaly and small pericardial effusion, pulm vasc congestion with mild-mod right effusion and basilar ATX 1. Acute on chronic diastolic/systolic heart failure in context of abnormal TSH, diet indiscretion and NSAID use, Covid negative 2. HTN heart disease, BP not at goal 3. Hypercholesterolemia 4. H/o ?TIA vs. CVA 5. Type 2 DM not at goal control 5. History of osteomyelitis 7. Anemia 8. Hypothyroid per TSH PLAN: 1. Increase IV Lasix, monitor diuretic response, renal function and electrolytes, check FT4 and adjust synthroid dose 2. Continue Norvasc 5 mg QD, Lipitor 10 mg QHS, losartan 50 qd, carvedilol 6.25 bid and uptitrate as hemodynamics tolerate. -Decline in EF noted on most recent echo may be due to decompensated volume status/ hypertension. -Consider ischemic evaluation when euvolemic 3. Off ASA and Plavix given anemia, scheduled for EGD and colonoscopy on May 24, 2020 once euvolemic, continue PPI, DVT prophylaxis with caution 4. O2 as needed, f/u COVID 19 testing, counselled on diet and med compliance, NSAID avoidance, compression therapy
[2020-05-19 07:31] LABS: HEMATOCRIT 30.8 % (32.4-45.2); HEMOGLOBIN 9.6 GM/dL (10.7-15.3); MCH 22.7 pg (25.7-33.7); MEAN CELL VOLUME 73.3 fl (80-96); MEAN PLT VOLUME 7.7 fl (7.5-11.1); PLATELET COUNT 317 K/MM3 (134-434); RDW 23.6 % (11.6-15.6); WHITE BLOOD COUNT 4.6 K/mm3 (4.0-10.0)
[2020-05-19 08:01] LABS: BLOOD UREA NITROGEN 27.2 mg/dL (7-18); CALCIUM 8.4 mg/dL (8.5-10.1); CREATININE 1.3 mg/dL (0.55-1.3); POTASSIUM 4.4 mmol/L (3.5-5.1)
[2020-05-19] MEDS ORDERED: IRON SUCROSE INJECTION 100 MG in SODIUM CHLORIDE 95 ML IVPB ONE (09:00)
[2020-05-19] MEDS: busPIRone HCL 10 MG TABLET (FP) PO SCH ×2 (09:04→21:17)
[2020-05-19] MEDS: FERROUS SO4 325 MG TABLET (FP) PO SCH (09:05)
[2020-05-19] MEDS: amLODIPine BESYLATE 5 MG TABLET (FP) PO SCH (09:05)
[2020-05-19] MEDS: LOSARTAN POTASSIUM 50 MG TABLET (FP) PO SCH (09:05)
[2020-05-19] MEDS: FUROSEMIDE 40 MG/4 ML INJECTABLE VIAL IVPUSH SCH ×2 (09:05→16:14)
[2020-05-19] MEDS ORDERED: ALBUTEROL SO4 2.5/IPRATROPIUM 0.5 INH SOL 3 ML VIAL.NEB. NEB PRN (09:05)
[2020-05-19] MEDS ORDERED: ALBUTEROL SO4 HFA INHALER IH PRN (09:57)
[2020-05-19] MEDS: CARVEDILOL 6.25 MG TABLET (FP) PO SCH ×2 (10:17→21:17)
--- NOTE | 2020-05-19 10:43 | PN ---
Physical Exam: SUBJECTIVE: Patient seen and examined Patient appears SOB after returning from the bathroom. She denies any further complaints. OBJECTIVE: Vital Signs Period Temp Pulse Resp BP Sys/Persaud Pulse Ox Last 24 Hr 97.4 F-98.2 F 61-76 18-24 134-178/71-95 93-95 GENERAL: The patient is awake, alert, and fully oriented, in no acute distress. HEAD: Normal with no signs of trauma. EYES: PERRL, extraocular movements intact, sclera anicteric, conjunctiva clear. No ptosis. ENT: Ears normal, nares patent, oropharynx clear without exudates, moist mucous membranes. NECK: Trachea midline, full range of motion, supple. JVD bilaterally LUNGS: SOB, Crackles on L and R lung base HEART: Regular rate and rhythm, S1, S2 without murmur, rub or gallop. peripheral edema ABDOMEN: Soft, nontender, nondistended, normoactive bowel sounds, no guarding, no rebound, no hepatosplenomegaly, no masses. EXTREMITIES: 2+ pulses, warm, well-perfused, 2+ Pitting edema NEUROLOGICAL: Cranial nerves II through XII grossly intact. Normal speech, gait not observed. PSYCH: Normal mood, normal affect. SKIN: Warm, dry, normal turgor, no rashes or lesions noted Laboratory Results - last 24 hr 05/18/20 05/18/20 05/18/20 11:22 16:37 20:45 WBC RBC Hgb Hct MCV MCH MCHC RDW Plt Count MPV Sodium Potassium Chloride Carbon Dioxide Anion Gap BUN Creatinine Est GFR (CKD-EPI)AfAm Est GFR (CKD-EPI)NonAf POC Glucometer 142 180 Random Glucose Calcium Free T4 0.97 05/18/20 05/19/20 05/19/20 21:25 06:19 06:50 WBC 4.6 RBC 4.20 Hgb 9.6 L Hct 30.8 L MCV 73.3 L MCH 22.7 L MCHC 31.0 L RDW 23.6 H Plt Count 317 MPV 7.7 Sodium Potassium Chloride Carbon Dioxide Anion Gap BUN Creatinine Est GFR (CKD-EPI)AfAm Est GFR (CKD-EPI)NonAf POC Glucometer 164 136 Random Glucose Calcium Free T4 05/19/20 06:50 WBC RBC Hgb Hct MCV MCH MCHC RDW Plt Count MPV Sodium 131 L Potassium 4.4 Chloride 96 L Carbon Dioxide 29 Anion Gap 7 L BUN 27.2 H Creatinine 1.3 Est GFR (CKD-EPI)AfAm 43.93 Est GFR (CKD-EPI)NonAf 37.91 POC Glucometer Random Glucose 128 H Calcium 8.4 L Free T4 Active Medications Generic Name Dose Route Start Last Admin Trade Name Freq PRN Reason Stop Dose Admin Albuterol Sulfate 2 puff 05/19/20 09:57 Ventolin Hfa Inhaler - IH Q4H PRN SHORT OF BREATH/WHEEZING Albuterol/Ipratropium 1 amp 05/19/20 09:05 Duoneb - NEB Q6H PRN SHORTNESS OF BREATH Amlodipine Besylate 5 mg 05/18/20 10:00 05/19/20 09:05 Norvasc - PO 5 mg DAILY [facility] Administration Atorvastatin Calcium 10 mg 05/18/20 22:00 05/18/20 21:29 Lipitor - PO 10 mg HS [facility] Administration Buspirone HCl 10 mg 05/18/20 10:00 05/19/20 09:04 Buspar - PO 10 mg BID [facility] Administration Carvedilol 6.25 mg 05/18/20 02:00 05/18/20 21:29 Coreg - PO Not Given BID [facility] Ferrous Sulfate 325 mg 05/18/20 10:00 05/19/20 09:05 Feosol - PO 325 mg DAILY [facility] Administration Furosemide 40 mg 05/19/20 16:00 Lasix Injection - IVPUSH BID@0600,1400 [facility] Heparin Sodium (Porcine) 5,000 unit 05/19/20 06:00 05/19/20 06:20 Heparin - SQ 5,000 unit TID [facility] Administration Insulin Aspart 1 vial 05/18/20 07:00 05/19/20 06:20 Novolog Vial Sliding Scale - SQ Not Given ACHS [facility] Protocol Levothyroxine Sodium 50 mcg 05/19/20 10:08 Synthroid - PO ACBK [facility] Losartan Potassium 50 mg 05/18/20 11:30 05/19/20 09:05 Cozaar - PO 50 mg DAILY [facility] Administration Mometasone Furoate 1 puff 05/18/20 22:00 05/18/20 21:37 Asmanex 110mcg - IH 1 puff HS [facility] Administration Pantoprazole Sodium 40 mg 05/18/20 07:00 05/19/20 06:20 Protonix - PO 40 mg AM [facility] Administration Quetiapine Fumarate 12.5 mg 05/18/20 18:15 05/18/20 21:30 Seroquel - PO 12.5 mg HS PRN Administration INSOMNIA Trazodone HCl 150 mg 05/18/20 22:00 05/18/20 21:29 Desyrel - PO 150 mg HS [facility] Administration ASSESSMENT/PLAN: Patient is an 84f with a PMHx of HFrEF, DM, HTN, HLD, Hypothyroidism, anxiety, insomnia presenting to the ED for worsening SOB since 05/17. Patient was recently admitted back on 04/30 for acute CHF exacerbation and anemia. Patients last echo demonstrated an EF of 40-45%. Patient reports having been able to walk around her house without assistance prior to symptoms. 1. Acute on chronic diastolic/systolic heart failure - BNP - 5276.8 pg/ml - CARDIOLOGY on board (Dr. Garcia) chronic condition having had multiple admissions in the past - likely suggestive of inadequate dosage/malabsorption of lasix therapy - Lasix IV 60mg IVpush BID - Echo demonstrates mild-mod decreased LVEF 40-45%, mild dilated and decreased RV systolic fxn - Chest CT shows cardiomegaly and small pericardial effusion w pulm vascular congestion, moderate right effusion - monitor electrolytes and labs 2. HTN heart disease - BP not at goal 159/74 - continue losartan 50 qd/ norvasc 5mg qd / carvedilol 6.25 BID - Strict Intake/output - monitor BP - Lipitor 10mg QHS 3. Hypothyroid - TSH - 24.3 free T4 - 0.97 - Consult Endocrinology (Dr. Rick Ward) - adjusted synthroid dosage to 50 micrograms of synthroid from 25 4. Anemia - H/H 9.6/30.8 from 9.3/30.4 - Iron sucrose injection - Ferrous sulfate 5. prophylaxis - lovenox ATTENDING PHYSICIAN STATEMENT I saw and evaluated the patient. I reviewed the resident's note and discussed the case with the resident. I agree with the resident's findings and plan as documented. SUBJECTIVE: OBJECTIVE: ASSESSMENT AND PLAN:
--- NOTE | 2020-05-19 15:00 | PN ---
Progress Note (short form) - Note Progress Note: SUBJECTIVE: Feeling better, still has some SOB. OBJECTIVE: Afebrile, Hemodynamicaly Stable. SpO2 5% on 3L Last Vital Signs Temp Pulse Resp BP Pulse Ox 97.7 F 66 20 142/70 93 L 05/19/20 13:05 05/19/20 13:05 05/19/20 13:05 05/19/20 13:05 05/19/20 13:07 Heart - S1, S2, RRR Lungs - basal crackles. [place] - Soft, Non-tender. Bowel Sounds normal. Extremities - LE edema ++ R>L. No calf tenderness. Laboratory Results - last 24 hr 05/18/20 05/18/20 05/18/20 16:37 20:45 21:25 WBC RBC Hgb Hct MCV MCH MCHC RDW Plt Count MPV Sodium Potassium Chloride Carbon Dioxide Anion Gap BUN Creatinine Est GFR (CKD-EPI)AfAm Est GFR (CKD-EPI)NonAf POC Glucometer 180 164 Random Glucose Calcium Free T4 0.97 05/19/20 05/19/20 05/19/20 06:19 06:50 06:50 WBC 4.6 RBC 4.20 Hgb 9.6 L Hct 30.8 L MCV 73.3 L MCH 22.7 L MCHC 31.0 L RDW 23.6 H Plt Count 317 MPV 7.7 Sodium 131 L Potassium 4.4 Chloride 96 L Carbon Dioxide 29 Anion Gap 7 L BUN 27.2 H Creatinine 1.3 Est GFR (CKD-EPI)AfAm 43.93 Est GFR (CKD-EPI)NonAf 37.91 POC Glucometer 136 Random Glucose 128 H Calcium 8.4 L Free T4 05/19/20 11:32 WBC RBC Hgb Hct MCV MCH MCHC RDW Plt Count MPV Sodium Potassium Chloride Carbon Dioxide Anion Gap BUN Creatinine Est GFR (CKD-EPI)AfAm Est GFR (CKD-EPI)NonAf POC Glucometer 161 Random Glucose Calcium Free T4 Current Medications Generic Name Dose Route Start Last Admin Trade Name Freq PRN Reason Stop Dose Admin Albuterol Sulfate 2 puff 05/19/20 09:57 05/19/20 11:29 Ventolin Hfa Inhaler - IH 2 puff Q4H PRN Administration SHORT OF BREATH/WHEEZING Albuterol/Ipratropium 1 amp 05/19/20 09:05 Duoneb - NEB Q6H PRN SHORTNESS OF BREATH Amlodipine Besylate 5 mg 05/18/20 10:00 05/19/20 09:05 Norvasc - PO 5 mg DAILY EDISON Administration Atorvastatin Calcium 10 mg 05/18/20 22:00 05/18/20 21:29 Lipitor - PO 10 mg HS EDISON Administration Buspirone HCl 10 mg 05/18/20 10:00 05/19/20 09:04 Buspar - PO 10 mg BID EDISON Administration Carvedilol 6.25 mg 05/18/20 02:00 05/19/20 10:17 Coreg - PO 6.25 mg BID EDISON Administration Ferrous Sulfate 325 mg 05/18/20 10:00 05/19/20 09:05 Feosol - PO 325 mg DAILY EDISON Administration Furosemide 40 mg 05/19/20 16:00 Lasix Injection - IVPUSH BID@0600,1400 EDISON Heparin Sodium (Porcine) 5,000 unit 05/19/20 06:00 05/19/20 12:59 Heparin - SQ 5,000 unit TID EDISON Administration Insulin Aspart 1 vial 05/18/20 07:00 05/19/20 12:26 Novolog Vial Sliding Scale - SQ 2 units ACHS EDISON Administration Protocol Levothyroxine Sodium 50 mcg 05/19/20 10:08 Synthroid - PO ACBK EDISON Losartan Potassium 50 mg 05/18/20 11:30 05/19/20 09:05 Cozaar - PO 50 mg DAILY EDISON Administration Mometasone Furoate 1 puff 05/18/20 22:00 05/18/20 21:37 Asmanex 110mcg - IH 1 puff HS EDISON Administration Pantoprazole Sodium 40 mg 05/18/20 07:00 05/19/20 06:20 Protonix - PO 40 mg AM EDISON Administration Quetiapine Fumarate 12.5 mg 05/18/20 18:15 05/18/20 21:30 Seroquel - PO 12.5 mg HS PRN Administration INSOMNIA Trazodone HCl 150 mg 05/18/20 22:00 05/18/20 21:29 Desyrel - PO 150 mg HS EDISON Administration Home Medications Medication Instructions Recorded Amlodipine Besylate [Norvasc -] 1 tab PO DAILY 04/17/20 Atorvastatin Ca [Lipitor] 1 tab PO AM 04/17/20 Buspirone HCl [Buspar -] 1 tab PO BID 04/17/20 Donepezil HCl 5 mg PO AM 04/17/20 Insulin Degludec [Tresiba] 40 unit SQ AM 04/17/20 Losartan Potassium 1 tab PO AM 04/17/20 Metformin HCl [Glucophage] 500 mg PO BID 04/17/20 Pantoprazole Sodium 1 tab PO AM 04/17/20 traZODone HCL [Desyrel -] 150 mg PO HS 04/17/20 Ergocalciferol (Vitamin D2) 50,000 unit PO WEEKLY 04/28/20 [Vitamin D2] Ferrous Sulfate 325 mg PO DAILY 04/28/20 Fluticasone Propionate [Flovent 110 mcg IH DAILY 04/28/20 Hfa] Levothyroxine [Synthroid -] 50 mcg PO DAILY 04/28/20 Quetiapine Fumarate [Seroquel -] 12.5 mg PO HS PRN 04/28/20 Carvedilol [Coreg] 6.25 mg PO BID 30 Days #60 tablet 04/30/20 Furosemide [Lasix] 60 mg PO DAILY 30 Days #45 tablet 04/30/20 ASSESSMENT AND PLAN: 84 year old female with history of Dementia, Chronic Systolic CHF, DM 2, HTN, HLD, Hx TIA/CVA, Hypothyroidism, Depression, Anxiety, Insomnia, presented with increasing SOB, orthopnea and PND. 1. Acute Respiratory Failure secondary to Acute on Chronic Systolic CHF exacerbation CXR - pulmonary vascular congestion CT Chest - Bilateral pleural effusions R>L, cardiomegaly, small pericardial effusion, trace ascites Echo 04/19/20 - EF 40-45% BNP 5276 Lasix increased to 40mg IVP BID Cardiology following. Daily weight, I/Os Monitor Renal Function. SpO2 5% on 2L/88% RA - slowly attempt to wean down supplemental O2 as diuresis is ongoing. Cardiology recommends consideration of ischemic evaluation when euvolemic 2. HTN - uncontrolled on admission, now better controlled on resuming home meds Norvasc, Coreg, Losartan. 3. Hypothyroidism, TSH above target at 24 Normally on Levothyroxine 50mcg daily but non-complaint. Endocrinology evaluated - recommend resuming Levothyroxine at 50mcg. 4. Microcytic Anemia, DONNA Previously required PRBC transfusion. IV Venofer here. On FeSO4 at home. Scheduled for EGD/[place] with Dr. Cruz 05/24/20 Previously on Aspirin/Plavix, held due to DONNA 5. RLE > LLE US Duplex LEs - no DVT 6. Enlarged Uterus with Endometrial Thickening, incidental finding on CT US - endometrial lesion with fluid in endometrial canal. For OBGYN consultation. 7. HLD - continue Statin. 8. Dementia/Depression/Anxiety - continue Donepezil, Buspirone, Seroquel. 9. DM 2 - Tresiba/Metformin held. Maintain on Novolog sliding scale. DVT Px - cautious Heparin SQ GI Px - PPI. Visit type - Emergency Visit Emergency Visit: Yes ED Registration Date: 05/18/20 Care time: The patient presented to the Emergency Department on the above date and was hospitalized for further evaluation of their emergent condition. - New Patient This patient is new to me today: No - Critical Care Critical Care patient: No - Discharge Referral Referred to [facility] No
[2020-05-19] MEDS ORDERED: PT OWN MED DRAWER 7, Y5N ONE (21:08)
[2020-05-19] MEDS: MOMETASONE FUROATE 110 MCG/IH INHALER IH SCH (21:17)
[2020-05-19] MEDS: ATORVASTATIN CA 10 MG TABLET (FP) PO SCH (21:18)
[2020-05-19] MEDS: traZODone HCL 50 MG TABLET (FP) PO SCH (21:18)
[2020-05-19] MEDS: QUEtiapine FUMARATE 25 MG TABLET PO PRN (21:23)
[2020-05-20] MEDS: FUROSEMIDE 40 MG/4 ML INJECTABLE VIAL IVPUSH SCH ×2 (06:35→13:25)
[2020-05-20] MEDS: HEPARIN NA (PORCINE) 5,000 UNITS/ML 1ML VIAL SQ SCH ×3 (06:35→22:12)
--- NOTE | 2020-05-20 06:35 | PN ---
Progress Note, Physician Chief Complaint: Selected Entries 05/19/20 05/20/20 06:00 06:00 Weight 208 lb 205 lb 9.6 oz WEIGHT DOWN SEEMS MUCH MORE COMFORTABLE TODAY, LESS SOB History of Present Illness: TELE: NSR, Cardiomyopathy Acute on chronic mixed systolic/diastolic CHF Anemia HTN-- AM BP remains high - Current Medication List Current Medications: Active Medications Albuterol Sulfate (Ventolin Hfa Inhaler -) 2 puff IH Q4H PRN PRN Reason: SHORT OF BREATH/WHEEZING Last Admin: 05/19/20 11:29 Dose: 2 puff Documented by: Albuterol/Ipratropium (Duoneb -) 1 amp NEB Q6H PRN PRN Reason: SHORTNESS OF BREATH Amlodipine Besylate (Norvasc -) 5 mg PO DAILY [facility] Last Admin: 05/19/20 09:05 Dose: 5 mg Documented by: Atorvastatin Calcium (Lipitor -) 10 mg PO [facility] Last Admin: 05/19/20 21:18 Dose: 10 mg Documented by: Buspirone HCl (Buspar -) 10 mg PO BID [facility] Last Admin: 05/19/20 21:17 Dose: 10 mg Documented by: Carvedilol (Coreg -) 6.25 mg PO BID [facility] Last Admin: 05/19/20 21:17 Dose: 6.25 mg Documented by: Ferrous Sulfate (Feosol -) 325 mg PO DAILY [facility] Last Admin: 05/19/20 09:05 Dose: 325 mg Documented by: Furosemide (Lasix Injection -) 40 mg IVPUSH BID@0600,1400 [facility] Last Admin: 05/19/20 16:14 Dose: 40 mg Documented by: Heparin Sodium (Porcine) (Heparin -) 5,000 unit SQ TID [facility] Last Admin: 05/19/20 21:18 Dose: 5,000 unit Documented by: Insulin Aspart (Novolog Vial Sliding Scale -) 1 vial SQ ACHS [facility]; Protocol Last Admin: 05/19/20 21:21 Dose: 2 units Documented by: Levothyroxine Sodium (Synthroid -) 50 mcg PO ACBK [facility] Losartan Potassium (Cozaar -) 50 mg PO DAILY [facility] Last Admin: 05/19/20 09:05 Dose: 50 mg Documented by: Mometasone Furoate (Asmanex 110mcg -) 1 puff IH HS EDISON Last Admin: 05/19/20 21:17 Dose: 1 puff Documented by: Pantoprazole Sodium (Protonix -) 40 mg PO AM EDISON Last Admin: 05/19/20 06:20 Dose: 40 mg Documented by: Quetiapine Fumarate (Seroquel -) 12.5 mg PO HS PRN PRN Reason: INSOMNIA Last Admin: 05/19/20 21:23 Dose: 12.5 mg Documented by: Trazodone HCl (Desyrel -) 150 mg PO HS EDISON Last Admin: 05/19/20 21:18 Dose: 150 mg Documented by: - Objective Vital Signs: Vital Signs Temperature 97.7 F 05/20/20 06:00 Pulse Rate 70 05/20/20 06:00 Respiratory Rate 20 05/20/20 06:00 Blood Pressure 183/96 H 05/20/20 06:00 O2 Sat by Pulse Oximetry (%) 95 05/19/20 21:00 Constitutional: Yes: No Distress, Calm Eyes: Yes: Conjunctiva Clear Cardiovascular: Yes: Regular Rate and Rhythm Respiratory: Yes: CTA Bilaterally (no rales or wheezing) Gastrointestinal: Yes: Soft (nt) Edema: Yes Edema: LLE: 1+, RLE: 1+ Neurological: Yes: Alert Labs: CBC, BMP 05/19/20 06:50 05/19/20 06:50 INR, PTT INR 1.08 (0.83-1.09) 05/17/20 22:10 - ....Imaging EKG: Image Reviewed Assessment/Plan Assessment/Plan 05/18/[address]: Bilateral effusions R>L, small pericardial effusion, anasarca, trace ascites 04/19/2020 Echo: Mild-mod decreased LVEF 40-45%, mild dilated and decreased RV systolic function, mild LAE, mild MR, TR, AR, tr ME 04/18/[address]: Cardiomegaly and small pericardial effusion, pulm vasc congestion with mild-mod right effusion and basilar ATX 1. Acute on chronic diastolic/systolic heart failure in context of abnormal TSH, diet indiscretion and NSAID use, Covid negative 2. HTN heart disease, BP not at goal 3. Hypercholesterolemia 4. H/o ?TIA vs. CVA 5. Type 2 DM not at goal control 5. History of osteomyelitis 7. Anemia 8. Hypothyroid per TSH REC: 1, Acute on chronic combined CHF: -Cont IV Lasix with daily BMP/weights. Seems clinically improved today with increase in IV Lasix dose yesterday -EF reduced vs prior: will need to discuss ischemic evaluation with patient/PMD in light of current GI plan (was scheduled for C-scope/Endo 05/24 for anemia) 2. HTN: uncontrolled -Above goal in early AM and evening -Add aldactone 25mg daily -cont Losartan/ Coreg 3. Prior CVA: -ASA/Plavix (per Neuro) on hold for anemia recently requiring PRBCs -Cont statin -No hx of AF on prior admissions nor on tele now 4. Anemia: -recently required admission for PRBCS -Was planned for outpatient GI evaluation (endo/C-scope 05/24) which will now need to be reconsidered in light of acute CHF decompensation and timing of GI evaluation with ischemic work up discussed with PMD and GI 5. Thyroid disorder: -As per PMD
[2020-05-20] MEDS: LEVOTHYROXINE NA 50 MCG TABLET (FP) PO SCH (06:36)
[2020-05-20] MEDS: INSULIN SLIDING SCALE (NOVOLOG) 1 VIAL SQ SCH ×4 (06:36→22:12)
[2020-05-20] MEDS: amLODIPine BESYLATE 5 MG TABLET (FP) PO SCH ×2 (06:37→09:16)
[2020-05-20] MEDS: PANTOPRAZOLE 40 MG TABLET PO SCH (06:37)
[2020-05-20] MEDS ORDERED: PT OWN MED DRAWER 7, Y5N ONE ×2 (08:26→22:13)
[2020-05-20] MEDS: FERROUS SO4 325 MG TABLET (FP) PO SCH (09:16)
[2020-05-20] MEDS: CARVEDILOL 6.25 MG TABLET (FP) PO SCH ×2 (09:16→22:11)
[2020-05-20] MEDS: busPIRone HCL 10 MG TABLET (FP) PO SCH ×2 (09:16→22:13)
[2020-05-20] MEDS: LOSARTAN POTASSIUM 50 MG TABLET (FP) PO SCH (09:17)
[2020-05-20] MEDS: SPIRONOLACTONE 25 MG TABLET PO SCH (11:19)
--- NOTE | 2020-05-20 14:10 | CON.OBG ---
Consult Consult Specialty:: marking clerk Referred by:: Cecil Kolb Reason for Consultation:: uterine polyp - History of Present Illness Chief Complaint: 84 yrs being treated for [facility] is referred for abd/pelvic CT scan shows enlarged Ut with thickened em & fluid. TVSono : ut [id number],fluid accumlation in em cavity,diameter 3.5cm, no definite em seen ( em thickness not mentioned ),1.4 cm polypoid lesion in upper body of uterus. 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: Peripheral Neuropathy, Other (cataract) Cardio/Vascular: Yes: CHF (hospitalized 04/17 to04/21 & again 04/27 to 04/30), HTN, Hyperlipdemia Pulmonary: Yes: Other (chest xray mild pulm venous congestion, CT scan bilat pleyral effusion ) Gastrointestinal: Yes: GERD Hepatobiliary: Yes: Other (diffuse fatty infiltrate on CT scan ) Renal/: Yes: Renal Inusuff Reproductive: Yes: Other (meopause age 51 yrs ) ...: No ...: 4 (3NSVD, LD by C/section , when not remembered ) ...Para: 4 Heme/Onc: Yes: Anemia (h/o 2 PCT in April admission ) Psych: Yes: Anxiety, Depression Endocrine: Yes: Diabetes Mellitus, Hypothyroidism (hasimoto) - Past Surgical History Past Surgical History: Yes: Cholecystectomy, - Alcohol/Substance Use Hx Alcohol Use: No History of Substance Use: reports: None - Smoking History Smoking history: Never smoked Have you smoked in the past 12 months: No - Social History Usual Living Arrangement: Alone ADL: Independent Occupation: retired History of Recent Travel: No Home Medications - Allergies Allergies/Adverse Reactions: Allergies Allergy/AdvReac Type Severity Reaction Status Date / Time shellfish derived Allergy Verified 05/17/20 22:17 - Home Medications Home Medications: Ambulatory Orders Amlodipine Besylate [Norvasc -] 1 tab PO DAILY 04/17/20 Atorvastatin Ca [Lipitor] 1 tab PO AM 04/17/20 Buspirone HCl [Buspar -] 1 tab PO BID 04/17/20 Donepezil HCl 5 mg PO AM 04/17/20 Insulin Degludec [Tresiba] 40 unit SQ AM 04/17/20 Losartan Potassium 1 tab PO AM 04/17/20 Metformin HCl [Glucophage] 500 mg PO BID 04/17/20 Pantoprazole Sodium 1 tab PO AM 04/17/20 traZODone HCL [Desyrel -] 150 mg PO HS 04/17/20 Ergocalciferol (Vitamin D2) [Vitamin D2] 50,000 unit PO WEEKLY 04/28/20 Ferrous Sulfate 325 mg PO DAILY 04/28/20 Fluticasone Propionate [Flovent Hfa] 110 mcg IH DAILY 04/28/20 Levothyroxine [Synthroid -] 50 mcg PO DAILY 04/28/20 Quetiapine Fumarate [Seroquel -] 12.5 mg PO HS PRN 04/28/20 Carvedilol [Coreg] 6.25 mg PO BID 30 Days #60 tablet 04/30/20 Furosemide [Lasix] 60 mg PO DAILY 30 Days #45 tablet 04/30/20 Review of Systems - Review of Systems Constitutional: denies: Fever Cardiovascular: reports: Edema, Shortness of Breath Respiratory: reports: SOB Genitourinary: reports: No Symptoms. 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 Vital Signs: Vital Signs Temperature 98.2 F 05/20/20 13:00 Pulse Rate 69 05/20/20 13:00 Respiratory Rate 22 H 05/20/20 13:00 Blood Pressure 145/60 05/20/20 13:00 O2 Sat by Pulse Oximetry (%) 95 05/20/20 09:00 Internal Exam Deferred: No Labs: CBC, BMP 05/19/20 06:50 05/19/20 06:50 Problem List - Problems (1) Polyp, uterus corpus Code(s): N84.0 - POLYP OF CORPUS UTERI (2) Postmenopause Code(s): Z78.0 - ASYMPTOMATIC MENOPAUSAL STATE (3) CHF exacerbation Code(s): I50.9 - HEART FAILURE, UNSPECIFIED Qualifiers: Heart failure type: combined systolic and diastolic Qualified Code(s): I50.43 - Acute on chronic combined systolic (congestive) and diastolic (congestive) heart failure (4) Hypothyroid Code(s): E03.9 - HYPOTHYROIDISM, UNSPECIFIED (5) Anemia Code(s): D64.9 - ANEMIA, UNSPECIFIED (6) SOB (shortness of breath) Code(s): R06.02 - SHORTNESS OF BREATH Assessment/Plan 84 yrs , postmenopausal since age 51 yrs no senior radiation protection technician related symptoms. incidental finding of ut enlarged 11cm for age & ut polyp in upper ut . labs & radiology reports meds reviewed pt declined senior radiation protection technician examination . I told her why retail operations manager was requested to see her . I explained her about uterine polyp, which need to be checked out , only way to do is by doing D&C Hysteroscopy under [place]. pt"s question was if it is necessary . I told her there is option of expectant management ,since she is asymptomatic. She can repeat TVS in 6 months again or when ever she is symptomatic undergo procedure . One another option is to do Em aspiration as an outpatient with pipelle em aspirator in office if possible, send for pathology ex since she is high risk due to [facility] . Patient states she will discuss with her PCP after she is discharged , whatever PCP will recommend she will do
[2020-05-20 14:36] LABS: BASO % 1.4 % (0-2.0); EOS % 2.3 % (0-4.5); HEMATOCRIT 31.4 % (32.4-45.2); HEMOGLOBIN 9.6 GM/dL (10.7-15.3); LYMPH % 15.2 % (8-40); MCH 22.2 pg (25.7-33.7); MCHC 30.5 g/dl (32.0-36.0); MEAN CELL VOLUME 72.8 fl (80-96); MEAN PLT VOLUME 7.4 fl (7.5-11.1); MONO % 6.2 % (3.8-10.2); NEUT % 74.9 % (42.8-82.8); PLATELET COUNT 340 K/MM3 (134-434); RBC 4.31 M/mm3 (3.60-5.2); RDW 23.6 % (11.6-15.6); WHITE BLOOD COUNT 4.6 K/mm3 (4.0-10.0)
[2020-05-20 14:55] LABS: BLOOD UREA NITROGEN 28.6 mg/dL (7-18); CALCIUM 8.6 mg/dL (8.5-10.1); CREATININE 1.6 mg/dL (0.55-1.3); MAGNESIUM 2.4 mg/dL (1.8-2.4); PHOSPHOROUS 4.8 mg/dL (2.5-4.9); POTASSIUM 4.1 mmol/L (3.5-5.1)
--- NOTE | 2020-05-20 15:02 | PN ---
Teaching Attending Note Name of Resident: Sedrick Ward ATTENDING PHYSICIAN STATEMENT I saw and evaluated the patient. I reviewed the resident's note and discussed the case with the resident. I agree with the resident's findings and plan as documented. SUBJECTIVE: Still has some SOB and some epigastric discomfort. OBJECTIVE: Afebrile, Hemodynamicaly Stable. SpO2 95% on 3L Last Vital Signs Temp Pulse Resp BP Pulse Ox 98.2 F 69 22 H 145/60 95 05/20/20 13:00 05/20/20 13:00 05/20/20 13:00 05/20/20 13:00 05/20/20 09:00 Heart - S1, S2, RRR Lungs - basal crackles. [place] - Soft, mild epigastric tenderness. Bowel Sounds normal. Extremities - LE edema ++ R>L. No calf tenderness. Laboratory Results - last 24 hr 05/19/20 05/19/20 05/20/20 16:17 21:21 05:48 WBC RBC Hgb Hct MCV MCH MCHC RDW Plt Count MPV Absolute Neuts (auto) Neutrophils % Lymphocytes % Monocytes % Eosinophils % Basophils % Nucleated RBC % Sodium Potassium Chloride Carbon Dioxide Anion Gap BUN Creatinine Est GFR (CKD-EPI)AfAm Est GFR (CKD-EPI)NonAf POC Glucometer 177 177 160 Random Glucose Calcium Phosphorus Magnesium 05/20/20 05/20/20 05/20/20 11:14 14:00 14:00 WBC 4.6 RBC 4.31 Hgb 9.6 L Hct 31.4 L MCV 72.8 L MCH 22.2 L MCHC 30.5 L RDW 23.6 H Plt Count 340 MPV 7.4 L Absolute Neuts (auto) 3.5 Neutrophils % 74.9 Lymphocytes % 15.2 Monocytes % 6.2 Eosinophils % 2.3 D Basophils % 1.4 D Nucleated RBC % 0 Sodium 136 Potassium 4.1 Chloride 96 L Carbon Dioxide 30 Anion Gap 9 BUN 28.6 H Creatinine 1.6 H Est GFR (CKD-EPI)AfAm 34.18 Est GFR (CKD-EPI)NonAf 29.49 POC Glucometer 213 Random Glucose 159 H Calcium 8.6 Phosphorus 4.8 Magnesium 2.4 Current Medications Generic Name Dose Route Start Last Admin Trade Name Freq PRN Reason Stop Dose Admin Albuterol Sulfate 2 puff 05/19/20 09:57 05/19/20 11:29 Ventolin Hfa Inhaler - IH 2 puff Q4H PRN Administration SHORT OF BREATH/WHEEZING Albuterol/Ipratropium 1 amp 05/19/20 09:05 Duoneb - NEB Q6H PRN SHORTNESS OF BREATH Amlodipine Besylate 5 mg 05/18/20 10:00 05/20/20 09:16 Norvasc - PO 5 mg DAILY EDISON Administration Atorvastatin Calcium 10 mg 05/18/20 22:00 05/19/20 21:18 Lipitor - PO 10 mg HS EDISON Administration Buspirone HCl 10 mg 05/18/20 10:00 05/20/20 09:16 Buspar - PO 10 mg BID EDISON Administration Carvedilol 6.25 mg 05/18/20 02:00 05/20/20 09:16 Coreg - PO 6.25 mg BID EDISON Administration Ferrous Sulfate 325 mg 05/18/20 10:00 05/20/20 09:16 Feosol - PO 325 mg DAILY EDISON Administration Furosemide 40 mg 05/19/20 16:00 05/20/20 13:25 Lasix Injection - IVPUSH 40 mg BID@0600,1400 EDISON Administration Heparin Sodium (Porcine) 5,000 unit 05/19/20 06:00 05/20/20 13:25 Heparin - SQ 5,000 unit TID EDISON Administration Insulin Aspart 1 vial 05/18/20 07:00 05/20/20 11:19 Novolog Vial Sliding Scale - SQ 4 units ACHS EDISON Administration Protocol Levothyroxine Sodium 50 mcg 05/19/20 10:08 05/20/20 06:36 Synthroid - PO 50 mcg ACBK EDISON Administration Losartan Potassium 50 mg 05/18/20 11:30 05/20/20 09:17 Cozaar - PO 50 mg DAILY EDISON Administration Mometasone Furoate 1 puff 05/18/20 22:00 05/19/20 21:17 Asmanex 110mcg - IH 1 puff HS EDISON Administration Pantoprazole Sodium 40 mg 05/18/20 07:00 05/20/20 06:37 Protonix - PO 40 mg AM EDISON Administration Quetiapine Fumarate 12.5 mg 05/18/20 18:15 05/19/20 21:23 Seroquel - PO 12.5 mg HS PRN Administration INSOMNIA Spironolactone 25 mg 05/20/20 11:00 05/20/20 11:19 Aldactone - PO 25 mg DAILY EDISON Administration Trazodone HCl 150 mg 05/18/20 22:00 05/19/20 21:18 Desyrel - PO 150 mg HS EDISON Administration Home Medications Medication Instructions Recorded Amlodipine Besylate [Norvasc -] 1 tab PO DAILY 04/17/20 Atorvastatin Ca [Lipitor] 1 tab PO AM 04/17/20 Buspirone HCl [Buspar -] 1 tab PO BID 04/17/20 Donepezil HCl 5 mg PO AM 04/17/20 Insulin Degludec [Tresiba] 40 unit SQ AM 04/17/20 Losartan Potassium 1 tab PO AM 04/17/20 Metformin HCl [Glucophage] 500 mg PO BID 04/17/20 Pantoprazole Sodium 1 tab PO AM 04/17/20 traZODone HCL [Desyrel -] 150 mg PO HS 04/17/20 Ergocalciferol (Vitamin D2) 50,000 unit PO WEEKLY 04/28/20 [Vitamin D2] Ferrous Sulfate 325 mg PO DAILY 04/28/20 Fluticasone Propionate [Flovent 110 mcg IH DAILY 04/28/20 Hfa] Levothyroxine [Synthroid -] 50 mcg PO DAILY 04/28/20 Quetiapine Fumarate [Seroquel -] 12.5 mg PO HS PRN 04/28/20 Carvedilol [Coreg] 6.25 mg PO BID 30 Days #60 tablet 04/30/20 Furosemide [Lasix] 60 mg PO DAILY 30 Days #45 tablet 04/30/20 ASSESSMENT AND PLAN: 84 year old female with history of Dementia, Chronic Systolic CHF, DM 2, HTN, HLD, Hx TIA/CVA, Hypothyroidism, Depression, Anxiety, Insomnia, presented with increasing SOB, orthopnea and PND. 1. Acute Respiratory Failure secondary to Acute on Chronic Systolic CHF exacerbation CXR - pulmonary vascular congestion CT Chest - Bilateral pleural effusions R>L, cardiomegaly, small pericardial effusion, trace ascites Echo 04/19/20 - EF 40-45% BNP 5276 Weight down Continue Lasix 40mg IVP BID Cardiology following. Monitor Renal Function. SpO2 95% on 2-3L/88% RA - slowly attempt to wean down supplemental O2 as diuresis is ongoing. Cardiology recommends consideration of ischemic evaluation when euvolemic 2. DARIA sec to Lasix - monitor renal function with ongoing diuresis. 3. Hypothyroidism, TSH above target at 24 Normally on Levothyroxine 25mcg daily but intermittently complaint. Endocrinology evaluated - recommend resuming Levothyroxine at 50mcg. 4. Microcytic Anemia, DONNA Previously required PRBC transfusion. IV Venofer here. On FeSO4 at home. Scheduled for EGD/[place] with Dr. Cruz 05/24/20 Previously on Aspirin/Plavix, held due to DONNA 5. RLE > LLE US Duplex LEs - no DVT 6. Enlarged Uterus with Endometrial Thickening, incidental finding on CT US - endometrial lesion with fluid in endometrial canal. OBGYN evaluated - patient currently declines PV exam - for out-patient follow up and work-up. 7. HLD - continue Statin. 8. Dementia/Depression/Anxiety - continue Donepezil, Buspirone, Seroquel. 9. DM 2 - Tresiba/Metformin held. Maintain on Novolog sliding scale. 10. HTN - uncontrolled on admission, still slightly high this AM. Continue Norvasc, Coreg, Losartan. Aldactone added by Cardiology. Will monitor Renal function fina in light of mild Creat rise. DVT Px - cautious Heparin SQ GI Px - PPI.
--- NOTE | 2020-05-20 15:53 | PN ---
Physical Exam: SUBJECTIVE: Patient seen and examined Patient endorses epigastric tenderness. OBJECTIVE: Vital Signs Period Temp Pulse Resp BP Sys/Persaud Pulse Ox Last 24 Hr 97.6 F-98.8 F 66-83 20-22 142-183/60-96 94-95 GENERAL: The patient is awake, alert, and fully oriented, in no acute distress. HEAD: Normal with no signs of trauma. EYES: PERRL, extraocular movements intact, sclera anicteric, conjunctiva clear. No ptosis. ENT: Ears normal, nares patent, oropharynx clear without exudates, moist mucous membranes. NECK: Trachea midline, full range of motion, supple. LUNGS: Crackles are heard bilateral bases. HEART: Regular rate and rhythm, S1, S2 without murmur, rub or gallop. ABDOMEN: Tender epigastric region EXTREMITIES: 2+ pulses, warm, well-perfused,2+ pitting edema bilaterally R>L NEUROLOGICAL: Cranial nerves II through XII grossly intact. Normal speech, gait not observed. PSYCH: Normal mood, normal affect. SKIN: Warm, dry, normal turgor, no rashes or lesions noted Laboratory Results - last 24 hr 05/19/20 05/19/20 05/20/20 16:17 21:21 05:48 WBC RBC Hgb Hct MCV MCH MCHC RDW Plt Count MPV Absolute Neuts (auto) Neutrophils % Lymphocytes % Monocytes % Eosinophils % Basophils % Nucleated RBC % Sodium Potassium Chloride Carbon Dioxide Anion Gap BUN Creatinine Est GFR (CKD-EPI)AfAm Est GFR (CKD-EPI)NonAf POC Glucometer 177 177 160 Random Glucose Calcium Phosphorus Magnesium 05/20/20 05/20/20 05/20/20 11:14 14:00 14:00 WBC 4.6 RBC 4.31 Hgb 9.6 L Hct 31.4 L MCV 72.8 L MCH 22.2 L MCHC 30.5 L RDW 23.6 H Plt Count 340 MPV 7.4 L Absolute Neuts (auto) 3.5 Neutrophils % 74.9 Lymphocytes % 15.2 Monocytes % 6.2 Eosinophils % 2.3 D Basophils % 1.4 D Nucleated RBC % 0 Sodium 136 Potassium 4.1 Chloride 96 L Carbon Dioxide 30 Anion Gap 9 BUN 28.6 H Creatinine 1.6 H Est GFR (CKD-EPI)AfAm 34.18 Est GFR (CKD-EPI)NonAf 29.49 POC Glucometer 213 Random Glucose 159 H Calcium 8.6 Phosphorus 4.8 Magnesium 2.4 Active Medications Generic Name Dose Route Start Last Admin Trade Name Luis Miguel PRN Reason Stop Dose Admin Albuterol Sulfate 2 puff 05/19/20 09:57 05/19/20 11:29 Ventolin Hfa Inhaler - IH 2 puff Q4H PRN Administration SHORT OF BREATH/WHEEZING Albuterol/Ipratropium 1 amp 05/19/20 09:05 Duoneb - NEB Q6H PRN SHORTNESS OF BREATH Amlodipine Besylate 5 mg 05/18/20 10:00 05/20/20 09:16 Norvasc - PO 5 mg DAILY EDISON Administration Atorvastatin Calcium 10 mg 05/18/20 22:00 05/19/20 21:18 Lipitor - PO 10 mg HS EDISON Administration Buspirone HCl 10 mg 05/18/20 10:00 05/20/20 09:16 Buspar - PO 10 mg BID EDISON Administration Carvedilol 6.25 mg 05/18/20 02:00 05/20/20 09:16 Coreg - PO 6.25 mg BID EDISON Administration Ferrous Sulfate 325 mg 05/18/20 10:00 05/20/20 09:16 Feosol - PO 325 mg DAILY EDISON Administration Furosemide 40 mg 05/19/20 16:00 05/20/20 13:25 Lasix Injection - IVPUSH 40 mg BID@0600,1400 EDISON Administration Heparin Sodium (Porcine) 5,000 unit 05/19/20 06:00 05/20/20 13:25 Heparin - SQ 5,000 unit TID EDISON Administration Insulin Aspart 1 vial 05/18/20 07:00 05/20/20 11:19 Novolog Vial Sliding Scale - SQ 4 units ACHS EDISON Administration Protocol Levothyroxine Sodium 50 mcg 05/19/20 10:08 05/20/20 06:36 Synthroid - PO 50 mcg ACBK EDISON Administration Losartan Potassium 50 mg 05/18/20 11:30 05/20/20 09:17 Cozaar - PO 50 mg DAILY EDISON Administration Mometasone Furoate 1 puff 05/18/20 22:00 05/19/20 21:17 Asmanex 110mcg - IH 1 puff HS EDISON Administration Pantoprazole Sodium 40 mg 05/18/20 07:00 05/20/20 06:37 Protonix - PO 40 mg AM EDISON Administration Quetiapine Fumarate 12.5 mg 05/18/20 18:15 05/19/20 21:23 Seroquel - PO 12.5 mg HS PRN Administration INSOMNIA Spironolactone 25 mg 05/20/20 11:00 05/20/20 11:19 Aldactone - PO 25 mg DAILY ED[facility] Administration Trazodone HCl 150 mg 05/18/20 22:00 05/19/20 21:18 Desyrel - PO 150 mg HS EDISON Administration ASSESSMENT/PLAN: 84F w a past medical history of CHF, DM2, HTN, HLD, Dementia, Hypothyroidism, TIA/CVA, depression was admitted to the floors on the basis of exacerbation of her CHF and 2 pillow orthopnea. 1. CHF exacerbation - BNP = 5276 - 208lbs from 210lbs - CXR demonstrates vascular congestion secondary to acute on chronic CHF exacerbation. - Cardiology on board - Lasix cont at 40mg - O2 sat = 95% on 2-3 L - attemt to wean O2 to 1 L and monitor O2 sats 2. DARIA - likely a result of the lasix and renal fxn will be monitored when on lasix therapy 3. Hypothyroidism - TSH = 24 - endo consult switched dosage to 50mcg 4. Enlarged uterus - CT scan findings reveals the uterus to have thicken endometrial bishop & endometrial lesion w concomitant fluid in the endometrial bishop - [employer] consulted - patient will follow up outpatient 5. HLD - continue home statin 6. Dementia - continue home donezapil -continue home buspirone - continue home seroquel 7. DM 2 - metformin held due to kidney function - novolog sliding scale 8. HTN - norvasc - coreg -lorsartan - aldactone - monitor renal function 9. DVT - prophylaxis - cautious heparin SQ 10. GI - ppi Visit type - Emergency Visit Emergency Visit: Yes ED Registration Date: 05/18/20 Care time: The patient presented to the Emergency Department on the above date and was hospitalized for further evaluation of their emergent condition. - New Patient This patient is new to me today: No - Critical Care Critical Care patient: No - Discharge Referral Referred to [facility] Med P.C.: No ATTENDING PHYSICIAN STATEMENT I saw and evaluated the patient. I reviewed the resident's note and discussed the case with the resident. I agree with the resident's findings and plan as documented. SUBJECTIVE: OBJECTIVE: ASSESSMENT AND PLAN:
[2020-05-20] MEDS: MOMETASONE FUROATE 110 MCG/IH INHALER IH SCH (22:11)
[2020-05-20] MEDS: ATORVASTATIN CA 10 MG TABLET (FP) PO SCH (22:12)
[2020-05-20] MEDS: traZODone HCL 50 MG TABLET (FP) PO SCH (22:12)
[2020-05-21] MEDS: INSULIN SLIDING SCALE (NOVOLOG) 1 VIAL SQ SCH ×4 (06:16→21:43)
[2020-05-21] MEDS: LEVOTHYROXINE NA 50 MCG TABLET (FP) PO SCH (06:17)
[2020-05-21] MEDS: PANTOPRAZOLE 40 MG TABLET PO SCH (06:17)
[2020-05-21] MEDS: HEPARIN NA (PORCINE) 5,000 UNITS/ML 1ML VIAL SQ SCH ×3 (06:18→21:36)
[2020-05-21 07:13] LABS: CALCIUM 8.7 mg/dL (8.5-10.1); CREATININE 1.4 mg/dL (0.55-1.3); POTASSIUM 4.3 mmol/L (3.5-5.1)
--- NOTE | 2020-05-21 08:01 | PN ---
Progress Note, Physician Chief Complaint: ARB and diuretics on hold secondary to creat bump yesterday Weight continues to decline BP trend much improved and trending down but stable She appears comfortable without CP/SOB/palps TELE: NSR History of Present Illness: acute combined CHF Anemia AR SH: nonsmoker - Current Medication List Current Medications: Active Medications Albuterol Sulfate (Ventolin Hfa Inhaler -) 2 puff IH Q4H PRN PRN Reason: SHORT OF BREATH/WHEEZING Last Admin: 05/19/20 11:29 Dose: 2 puff Documented by: Albuterol/Ipratropium (Duoneb -) 1 amp NEB Q6H PRN PRN Reason: SHORTNESS OF BREATH Amlodipine Besylate (Norvasc -) 5 mg PO DAILY [facility] Last Admin: 05/20/20 09:16 Dose: 5 mg Documented by: Atorvastatin Calcium (Lipitor -) 10 mg PO HS [facility] Last Admin: 05/20/20 22:12 Dose: 10 mg Documented by: Buspirone HCl (Buspar -) 10 mg PO BID [facility] Last Admin: 05/20/20 22:13 Dose: 10 mg Documented by: Carvedilol (Coreg -) 6.25 mg PO BID [facility] Last Admin: 05/20/20 22:11 Dose: 6.25 mg Documented by: Ferrous Sulfate (Feosol -) 325 mg PO DAILY [facility] Last Admin: 05/20/20 09:16 Dose: 325 mg Documented by: Heparin Sodium (Porcine) (Heparin -) 5,000 unit SQ TID [facility] Last Admin: 05/21/20 06:18 Dose: 5,000 unit Documented by: Insulin Aspart (Novolog Vial Sliding Scale -) 1 vial SQ ACHS [facility]; Protocol Last Admin: 05/21/20 06:16 Dose: Not Given Documented by: Levothyroxine Sodium (Synthroid -) 50 mcg PO ACBK [facility] Last Admin: 05/21/20 06:17 Dose: 50 mcg Documented by: Losartan Potassium (Cozaar -) 50 mg PO DAILY [facility] Last Admin: 05/20/20 09:17 Dose: 50 mg Documented by: Mometasone Furoate (Asmanex 110mcg -) 1 puff IH HS [facility] Last Admin: 05/20/20 22:11 Dose: 1 puff Documented by: Pantoprazole Sodium (Protonix -) 40 mg PO AM [facility] Last Admin: 05/21/20 06:17 Dose: 40 mg Documented by: Quetiapine Fumarate (Seroquel -) 12.5 mg PO HS PRN PRN Reason: INSOMNIA Last Admin: 05/19/20 21:23 Dose: 12.5 mg Documented by: Spironolactone (Aldactone -) 25 mg PO DAILY [facility] Last Admin: 05/20/20 11:19 Dose: 25 mg Documented by: Trazodone HCl (Desyrel -) 150 mg PO HS [facility] Last Admin: 05/20/20 22:12 Dose: 150 mg Documented by: - Objective Vital Signs: Vital Signs Temperature 97.2 F L 05/21/20 06:00 Pulse Rate 70 05/21/20 06:00 Respiratory Rate 20 05/21/20 06:00 Blood Pressure 150/83 05/21/20 06:00 O2 Sat by Pulse Oximetry (%) 95 05/20/20 21:00 Constitutional: Yes: No Distress, Calm Cardiovascular: Yes: Regular Rate and Rhythm Respiratory: Yes: CTA Bilaterally, Rhonchi Gastrointestinal: Yes: Soft (nt) Edema: Yes Edema: LLE: 1+, RLE: 1+ Neurological: Yes: Alert, Oriented Labs: CBC, BMP 05/20/20 14:00 05/21/20 05:55 INR, PTT INR 1.08 (0.83-1.09) 05/17/20 22:10 Selected Entries 05/21/20 06:00 Weight 203 lb 8 oz Laboratory Tests 05/20/20 05/21/20 14:00 05:55 Sodium 136 Potassium 4.3 BUN 28.6 H 31.0 H Creatinine 1.4 H Est GFR (CKD-EPI)AfAm 34.18 Assessment/Plan Assessment/Plan 05/18/[address]: Bilateral effusions R>L, small pericardial effusion, anasarca, trace ascites 04/19/2020 Echo: Mild-mod decreased LVEF 40-45%, mild dilated and decreased RV systolic function, mild LAE, mild MR, TR, AR, tr HI 04/18/[address]: Cardiomegaly and small pericardial effusion, pulm vasc congestion with mild-mod right effusion and basilar ATX 1. Acute on chronic diastolic/systolic heart failure in context of abnormal TSH, diet indiscretion and NSAID use, Covid negative 2. HTN heart disease, BP not at goal 3. Hypercholesterolemia 4. H/o ?TIA vs. CVA 5. Type 2 DM not at goal control 5. History of osteomyelitis 7. Anemia 8. Hypothyroid per TSH REC: 1, Acute on chronic combined CHF: clinically improved -Lasix /Aldactone/Losartan held today due to bump in creat noted 05/20 -Daily BMP, can resume above when creat trend stable and as BP allows (aldactone recently introduced) -EF reduced vs prior: will need to discuss ischemic evaluation with patient/PMD in light of current GI plan (was scheduled for C-scope/Endo 05/24 for anemia) -If H/H stable, will plan Lexiscan MPI in AM tomorrow. 2. HTN: much improved. Holding Losartan/IV Lasix and Aldactone today in light of creat rise to 1.6 yesterday- -Cont Amlodipine and Coreg -Can resume Losartan/ PO Lasix tomorrow if BP and renal fxn stable -May not require Aldactone detention. 3. Prior CVA: -ASA/Plavix (per Neuro) on hold for anemia recently requiring PRBCs -Cont statin -No hx of AF on prior admissions nor on tele now 4. Anemia: -recently required admission for PRBCS -Was planned for outpatient GI evaluation (endo/C-scope 05/24) -now euvolemic -Will plan for stress test in AM to assess r/o ischemia and further risk stratify prior to procedures. -Repeat CBC to assure Hb > 8 5. Thyroid disorder: -As per PMD
[2020-05-21] MEDS ORDERED: PT OWN MED DRAWER 7, Y5N ONE (08:46)
[2020-05-21] MEDS: busPIRone HCL 10 MG TABLET (FP) PO SCH ×2 (09:01→21:35)
[2020-05-21] MEDS: FERROUS SO4 325 MG TABLET (FP) PO SCH (09:02)
[2020-05-21] MEDS: CARVEDILOL 6.25 MG TABLET (FP) PO SCH ×2 (09:02→21:35)
[2020-05-21] MEDS: amLODIPine BESYLATE 5 MG TABLET (FP) PO SCH (09:02)
[2020-05-21 10:54] LABS: EOS % 1.5 % (0-4.5); HEMATOCRIT 29.5 % (32.4-45.2); HEMOGLOBIN 9.1 GM/dL (10.7-15.3); LYMPH % 20.5 % (8-40); MCH 22.6 pg (25.7-33.7); MCHC 30.8 g/dl (32.0-36.0); MEAN CELL VOLUME 73.2 fl (80-96); MEAN PLT VOLUME 7.9 fl (7.5-11.1); MONO % 8.7 % (3.8-10.2); NEUT % 68.3 % (42.8-82.8); PLATELET COUNT 317 K/MM3 (134-434); RBC 4.03 M/mm3 (3.60-5.2); RDW 24.1 % (11.6-15.6); WHITE BLOOD COUNT 4.8 K/mm3 (4.0-10.0)
[2020-05-21 11:22] LABS: ANISOCYTOSIS 2+; MACROCYTOSIS 0; PLATELET ESTIMATE NORMAL
--- NOTE | 2020-05-21 16:09 | PN ---
Progress Note (short form) - Note Progress Note: SUBJECTIVE: Feeling better today,less SOB. OBJECTIVE: Afebrile, Hemodynamicaly Stable. SpO2 99% on 2L Last Vital Signs Temp Pulse Resp BP Pulse Ox 97.6 F 74 22 H 147/70 99 05/21/20 10:00 05/21/20 10:00 05/21/20 10:00 05/21/20 10:00 05/21/20 09:00 Heart - S1, S2, RRR Lungs - bi-basal crackles. [place] - Soft, mild epigastric tenderness. Bowel Sounds normal. Extremities - LE edema + R>L. No calf tenderness. Laboratory Results - last 24 hr 05/17/20 05/20/20 05/20/20 22:40 16:50 22:10 WBC RBC Hgb Hct MCV MCH MCHC RDW Plt Count MPV Absolute Neuts (auto) Neutrophils % Lymphocytes % Monocytes % Eosinophils % Basophils % Nucleated RBC % Hypochromia Platelet Estimate Polychromasia Poikilocytosis Anisocytosis Microcytosis Macrocytosis Sodium Potassium Chloride Carbon Dioxide Anion Gap BUN Creatinine Est GFR (CKD-EPI)AfAm Est GFR (CKD-EPI)NonAf POC Glucometer 237 234 Random Glucose Calcium COVID-19 (REYM) Not detected 05/21/20 05/21/20 05/21/20 05:55 05:55 06:15 WBC 4.8 RBC 4.03 Hgb 9.1 L Hct 29.5 L MCV 73.2 L MCH 22.6 L MCHC 30.8 L RDW 24.1 H Plt Count 317 MPV 7.9 Absolute Neuts (auto) 3.3 Neutrophils % 68.3 Lymphocytes % 20.5 D Monocytes % 8.7 Eosinophils % 1.5 Basophils % 1.0 Nucleated RBC % 0 Hypochromia 0 Platelet Estimate Normal Polychromasia 0 Poikilocytosis 0 Anisocytosis 2+ Microcytosis 2+ Macrocytosis 0 Sodium 136 Potassium 4.3 Chloride 98 Carbon Dioxide 30 Anion Gap 9 BUN 31.0 H Creatinine 1.4 H Est GFR (CKD-EPI)AfAm 40.17 Est GFR (CKD-EPI)NonAf 34.66 POC Glucometer 138 Random Glucose 135 H Calcium 8.7 COVID-19 (REMY) 05/21/20 11:13 WBC RBC Hgb Hct MCV MCH MCHC RDW Plt Count MPV Absolute Neuts (auto) Neutrophils % Lymphocytes % Monocytes % Eosinophils % Basophils % Nucleated RBC % Hypochromia Platelet Estimate Polychromasia Poikilocytosis Anisocytosis Microcytosis Macrocytosis Sodium Potassium Chloride Carbon Dioxide Anion Gap BUN Creatinine Est GFR (CKD-EPI)AfAm Est GFR (CKD-EPI)NonAf POC Glucometer 210 Random Glucose Calcium COVID-19 (REMY) Current Medications Generic Name Dose Route Start Last Admin Trade Name Freq PRN Reason Stop Dose Admin Albuterol Sulfate 2 puff 05/19/20 09:57 05/19/20 11:29 Ventolin Hfa Inhaler - IH 2 puff Q4H PRN Administration SHORT OF BREATH/WHEEZING Albuterol/Ipratropium 1 amp 05/19/20 09:05 Duoneb - NEB Q6H PRN SHORTNESS OF BREATH Amlodipine Besylate 5 mg 05/18/20 10:00 05/21/20 09:02 Norvasc - PO 5 mg DAILY EDISON Administration Atorvastatin Calcium 10 mg 05/18/20 22:00 05/20/20 22:12 Lipitor - PO 10 mg HS EDISON Administration Buspirone HCl 10 mg 05/18/20 10:00 05/21/20 09:01 Buspar - PO 10 mg BID EDISON Administration Carvedilol 6.25 mg 05/18/20 02:00 05/21/20 09:02 Coreg - PO 6.25 mg BID EDISON Administration Ferrous Sulfate 325 mg 05/18/20 10:00 05/21/20 09:02 Feosol - PO 325 mg DAILY [facility] Administration Heparin Sodium (Porcine) 5,000 unit 05/19/20 06:00 05/21/20 13:31 Heparin - SQ 5,000 unit TID EDISON Administration Insulin Aspart 1 vial 05/18/20 07:00 05/21/20 11:33 Novolog Vial Sliding Scale - SQ 4 units ACHS EDISON Administration Protocol Levothyroxine Sodium 50 mcg 05/19/20 10:08 05/21/20 06:17 Synthroid - PO 50 mcg ACBK EDISON Administration Losartan Potassium 50 mg 05/18/20 11:30 05/20/20 09:17 Cozaar - PO 50 mg DAILY EDISON Administration Mometasone Furoate 1 puff 05/18/20 22:00 05/20/20 22:11 Asmanex 110mcg - IH 1 puff HS EDISON Administration Pantoprazole Sodium 40 mg 05/18/20 07:00 05/21/20 06:17 Protonix - PO 40 mg AM EDISON Administration Quetiapine Fumarate 12.5 mg 05/18/20 18:15 05/19/20 21:23 Seroquel - PO 12.5 mg HS PRN Administration INSOMNIA Spironolactone 25 mg 05/20/20 11:00 05/20/20 11:19 Aldactone - PO 25 mg DAILY EDISON Administration Trazodone HCl 150 mg 05/18/20 22:00 05/20/20 22:12 Desyrel - PO 150 mg HS EDISON Administration Home Medications Medication Instructions Recorded Amlodipine Besylate [Norvasc -] 1 tab PO DAILY 04/17/20 Atorvastatin Ca [Lipitor] 1 tab PO AM 04/17/20 Buspirone HCl [Buspar -] 1 tab PO BID 04/17/20 Donepezil HCl 5 mg PO AM 04/17/20 Insulin Degludec [Tresiba] 40 unit SQ AM 04/17/20 Losartan Potassium 1 tab PO AM 04/17/20 Metformin HCl [Glucophage] 500 mg PO BID 04/17/20 Pantoprazole Sodium 1 tab PO AM 04/17/20 traZODone HCL [Desyrel -] 150 mg PO HS 04/17/20 Ergocalciferol (Vitamin D2) 50,000 unit PO WEEKLY 04/28/20 [Vitamin D2] Ferrous Sulfate 325 mg PO DAILY 04/28/20 Fluticasone Propionate [Flovent 110 mcg IH DAILY 04/28/20 Hfa] Levothyroxine [Synthroid -] 50 mcg PO DAILY 04/28/20 Quetiapine Fumarate [Seroquel -] 12.5 mg PO HS PRN 04/28/20 Carvedilol [Coreg] 6.25 mg PO BID 30 Days #60 tablet 04/30/20 Furosemide [Lasix] 60 mg PO DAILY 30 Days #45 tablet 04/30/20 ASSESSMENT AND PLAN: 84 year old female with history of Dementia, Chronic Systolic CHF, DM 2, HTN, HLD, Hx TIA/CVA, Hypothyroidism, Depression, Anxiety, Insomnia, presented with increasing SOB, orthopnea and PND. 1. Acute Respiratory Failure secondary to Acute on Chronic Systolic CHF exacerbation CXR - pulmonary vascular congestion CT Chest - Bilateral pleural effusions R>L, cardiomegaly, small pericardial effusion, trace ascites Echo 04/19/20 - EF 40-45%, global hypokinesis. BNP 5276 Weight down Continue Lasix 40mg IVP BID Cardiology following. Monitor Renal Function. SpO2 99% on 2L - re-attempt to wean down supplemental O2 as diuresis is ongoing. Cardiology recommends possible Lexiscan 05/22 2. DARIA sec to Lasix - Bump in creat improving on holding Lasix. Aldactone and ARB also held for now. 3. Hypothyroidism, TSH above target at 24 Normally on Levothyroxine 25mcg daily but intermittently complaint. Endocrinology evaluated - recommend resuming Levothyroxine at 50mcg. 4. Microcytic Anemia, DONNA Previously required PRBC transfusion. IV Venofer here. On FeSO4 at home. Scheduled for EGD/[place] with Dr. Cruz 05/24/20 Previously on Aspirin/Plavix, held due to DONNA 5. RLE > LLE US Duplex LEs - no DVT 6. Enlarged Uterus with Endometrial Thickening, incidental finding on CT US - endometrial lesion with fluid in endometrial canal. OBGYN evaluated - patient currently declines PV exam - for out-patient follow up and work-up. 7. HLD - continue Statin. 8. Dementia/Depression/Anxiety - continue Donepezil, Buspirone, Seroquel. 9. DM 2 - Tresiba/Metformin held. Maintain on Novolog sliding scale. 10. HTN - uncontrolled on admission. Aldactone initially added to Norvasc, Coreg, Losartan by Cardiology. Aldactone and Losartan now held due to DARIA. Will monitor Renal function. DVT Px - cautious Heparin SQ GI Px - PPI. Visit type - Emergency Visit Emergency Visit: Yes ED Registration Date: 05/18/20 Care time: The patient presented to the Emergency Department on the above date and was hospitalized for further evaluation of their emergent condition. - New Patient This patient is new to me today: No - Critical Care Critical Care patient: No - Discharge Referral Referred to [facility] Med P.C.: No
[2020-05-21] MEDS: traZODone HCL 50 MG TABLET (FP) PO SCH (21:35)
[2020-05-21] MEDS: ATORVASTATIN CA 10 MG TABLET (FP) PO SCH (21:35)
[2020-05-21] MEDS: MOMETASONE FUROATE 110 MCG/IH INHALER IH SCH (21:43)
[2020-05-22] MEDS: HEPARIN NA (PORCINE) 5,000 UNITS/ML 1ML VIAL SQ SCH ×3 (06:05→22:22)
[2020-05-22] MEDS: INSULIN SLIDING SCALE (NOVOLOG) 1 VIAL SQ SCH ×4 (06:05→22:29)
[2020-05-22] MEDS: PANTOPRAZOLE 40 MG TABLET PO SCH (06:05)
[2020-05-22] MEDS: LEVOTHYROXINE NA 50 MCG TABLET (FP) PO SCH (06:05)
[2020-05-22 08:25] LABS: BASO % 1.1 % (0-2.0); EOS % 1.5 % (0-4.5); HEMATOCRIT 29.7 % (32.4-45.2); HEMOGLOBIN 9.1 GM/dL (10.7-15.3); LYMPH % 20.2 % (8-40); MCH 22.4 pg (25.7-33.7); MCHC 30.6 g/dl (32.0-36.0); MEAN CELL VOLUME 73.4 fl (80-96); MEAN PLT VOLUME 7.6 fl (7.5-11.1); MONO % 6.6 % (3.8-10.2); NEUT % 70.6 % (42.8-82.8); PLATELET COUNT 286 K/MM3 (134-434); RBC 4.05 M/mm3 (3.60-5.2); RDW 24.1 % (11.6-15.6); WHITE BLOOD COUNT 4.5 K/mm3 (4.0-10.0)
[2020-05-22 09:11] LABS: ANION GAP 3 MMOL/L (8-16); CALCIUM 8.4 mg/dL (8.5-10.1); CHLORIDE 98 mmol/L (98-107); CO2 34 mmol/L (21-32); CREATININE 1.5 mg/dL (0.55-1.3); GLUCOSE,RANDOM 157 mg/dL (74-106); POTASSIUM 4.6 mmol/L (3.5-5.1); SODIUM 135 mmol/L (136-145)
[2020-05-22] MEDS ORDERED: REGADENOSON 0.4 MG/5 ML PRE-FILLED SYRINGE IVPUSH ONE ×2 (10:25→11:00)
--- NOTE | 2020-05-22 12:15 | PN ---
Progress Note (short form) - Note Progress Note: s:no CP/SOB/palps/dizzy Current Medications Generic Name Dose Route Start Last Admin Trade Name Freq PRN Reason Stop Dose Admin Albuterol Sulfate 2 puff 05/19/20 09:57 05/19/20 11:29 Ventolin Hfa Inhaler - IH 2 puff Q4H PRN Administration SHORT OF BREATH/WHEEZING Albuterol/Ipratropium 1 amp 05/19/20 09:05 Duoneb - NEB Q6H PRN SHORTNESS OF BREATH Amlodipine Besylate 5 mg 05/18/20 10:00 05/21/20 09:02 Norvasc - PO 5 mg DAILY EDISON Administration Atorvastatin Calcium 10 mg 05/18/20 22:00 05/21/20 21:35 Lipitor - PO 10 mg HS EDISON Administration Buspirone HCl 10 mg 05/18/20 10:00 05/21/20 21:35 Buspar - PO 10 mg BID EDISON Administration Carvedilol 6.25 mg 05/18/20 02:00 05/21/20 21:35 Coreg - PO 6.25 mg BID EDISON Administration Ferrous Sulfate 325 mg 05/18/20 10:00 05/21/20 09:02 Feosol - PO 325 mg DAILY EDISON Administration Heparin Sodium (Porcine) 5,000 unit 05/19/20 06:00 05/22/20 06:05 Heparin - SQ 5,000 unit TID EDISON Administration Insulin Aspart 1 vial 05/18/20 07:00 05/22/20 06:05 Novolog Vial Sliding Scale - SQ Not Given ACHS [facility] Protocol Levothyroxine Sodium 50 mcg 05/19/20 10:08 05/22/20 06:05 Synthroid - PO 50 mcg ACBK EDISON Administration Losartan Potassium 50 mg 05/18/20 11:30 05/20/20 09:17 Cozaar - PO 50 mg DAILY EDISON Administration Mometasone Furoate 1 puff 05/18/20 22:00 05/21/20 21:43 Asmanex 110mcg - IH 1 puff HS EDISON Administration Pantoprazole Sodium 40 mg 05/18/20 07:00 05/22/20 06:05 Protonix - PO 40 mg AM EDISON Administration Quetiapine Fumarate 12.5 mg 05/18/20 18:15 05/19/20 21:23 Seroquel - PO 12.5 mg HS PRN Administration INSOMNIA Spironolactone 25 mg 05/20/20 11:00 05/20/20 11:19 Aldactone - PO 25 mg DAILY EDISON Administration Trazodone HCl 150 mg 05/18/20 22:00 05/21/20 21:35 Desyrel - PO 150 mg HS EDISON Administration Vital Signs Period Temp Pulse Resp BP Sys/Persaud Pulse Ox Last 24 Hr 97.4 F-98.0 F 60-75 20-22 131-157/62-87 95-95 Constitutional: Yes: No Distress, Calm Cardiovascular: Yes: Regular Rate and Rhythm Respiratory: Yes: CTA Bilaterally, Rhonchi Gastrointestinal: Yes: Soft (nt) Edema: trace le edema bl Neurological: Yes: Alert, Oriented no jaundice diaphoresis Labs: Laboratory Last Values WBC 4.5 K/mm3 (4.0-10.0) 05/22/20 07:00 RBC 4.05 M/mm3 (3.60-5.2) 05/22/20 07:00 Hgb 9.1 GM/dL (10.7-15.3) L 05/22/20 07:00 Hct 29.7 % (32.4-45.2) L 05/22/20 07:00 MCV 73.4 fl (80-96) L 05/22/20 07:00 MCH 22.4 pg (25.7-33.7) L 05/22/20 07:00 MCHC 30.6 g/dl (32.0-36.0) L 05/22/20 07:00 RDW 24.1 % (11.6-15.6) H 05/22/20 07:00 Plt Count 286 K/MM3 (134-434) 05/22/20 07:00 MPV 7.6 fl (7.5-11.1) 05/22/20 07:00 Absolute Neuts (auto) 3.2 K/mm3 (1.5-8.0) 05/22/20 07:00 Neutrophils % 70.6 % (42.8-82.8) 05/22/20 07:00 Lymphocytes % 20.2 % (8-40) 05/22/20 07:00 Monocytes % 6.6 % (3.8-10.2) 05/22/20 07:00 Eosinophils % 1.5 % (0-4.5) 05/22/20 07:00 Basophils % 1.1 % (0-2.0) 05/22/20 07:00 Nucleated RBC % 0 % (0-0) 05/22/20 07:00 Hypochromia 0 05/21/20 05:55 Platelet Estimate Normal 05/21/20 05:55 Platelet Comment 05/17/20 22:10 Polychromasia 0 05/21/20 05:55 Poikilocytosis 0 05/21/20 05:55 Anisocytosis 2+ 05/21/20 05:55 Microcytosis 2+ 05/21/20 05:55 Macrocytosis 0 05/21/20 05:55 Ovalocytes 1+ 05/17/20 22:10 Fragmented RBCs Few 05/17/20 22:10 PT with INR 12.80 SEC (9.7-13.0) 05/17/20 22:10 INR 1.08 (0.83-1.09) 05/17/20 22:10 PTT (Actin FS) 35.4 SECONDS (25.2-36.5) 05/17/20 22:10 Sodium 135 mmol/L (136-145) L 05/22/20 07:00 Potassium 4.6 mmol/L (3.5-5.1) 05/22/20 07:00 Chloride 98 mmol/L (98-107) 05/22/20 07:00 Carbon Dioxide 34 mmol/L (21-32) H 05/22/20 07:00 Anion Gap 3 MMOL/L (8-16) L 05/22/20 07:00 BUN 33.0 mg/dL (7-18) H 05/22/20 07:00 Creatinine 1.5 mg/dL (0.55-1.3) H 05/22/20 07:00 Est GFR (CKD-EPI)AfAm 36.95 05/22/20 07:00 Est GFR (CKD-EPI)NonAf 31.88 05/22/20 07:00 POC Glucometer 154 UNITS (80-120) 05/22/20 11:52 Random Glucose 157 mg/dL (74-106) H 05/22/20 07:00 Calcium 8.4 mg/dL (8.5-10.1) L 05/22/20 07:00 Phosphorus 4.8 mg/dL (2.5-4.9) 05/20/20 14:00 Magnesium 2.4 mg/dL (1.8-2.4) 05/20/20 14:00 Total Bilirubin 0.7 mg/dL (0.2-1) 05/18/20 05:23 AST 22 U/L (15-37) 05/18/20 05:23 ALT 29 U/L (13-61) 05/18/20 05:23 Alkaline Phosphatase 103 U/L (45-117) 05/18/20 05:23 Creatine Kinase 148 U/L (26-192) 05/22/20 07:00 Creatine Kinase Index 0.9 % (0.0-5.0) 05/17/20 22:10 CK-MB (CK-2) 1.7 ng/mL (0.5-3.6) 05/17/20 22:10 Troponin I < 0.02 ng/ml (0.00-0.05) 05/22/20 07:00 B-Natriuretic Peptide 5276.8 pg/ml (5-450) H 05/17/20 22:10 Total Protein 7.6 g/dl (6.4-8.2) 05/18/20 05:23 Albumin 3.3 g/dl (3.4-5.0) L 05/18/20 05:23 TSH 24.20 uIU/ml (0.358-3.74) H 05/17/20 22:10 Free T4 0.97 ng/dl (0.76-1.46) 05/18/20 20:45 Urine Color Yellow 05/18/20 01:20 Urine Appearance Clear 05/18/20 01:20 Urine pH 7.0 (5.0-8.0) 05/18/20 01:20 Ur Specific Butler 1.024 (1.010-1.035) 05/18/20 01:20 Urine Protein 3+ (NEGATIVE) H 05/18/20 01:20 Urine Glucose (UA) Negative (NEGATIVE) 05/18/20 01:20 Urine Ketones Negative (NEGATIVE) 05/18/20 01:20 Urine Blood Negative (NEGATIVE) 05/18/20 01:20 Urine Nitrite Negative (NEGATIVE) 07/02/20 01:20 Urine Bilirubin Negative (NEGATIVE) 05/18/20 01:20 Urine Urobilinogen 1.0 mg/dL (0.2-1.0) 05/18/20 01:20 Ur Leukocyte Esterase Negative (NEGATIVE) 05/18/20 01:20 Urine WBC (Auto) 5 /uL (0-25.8) 05/18/20 01:20 Urine RBC (Auto) 13 /uL (0-23.9) 05/18/20 01:20 Urine Casts (Auto) 0 /uL (0-3.1) 05/18/20 01:20 U Epithel Cells (Auto) 15 /uL (0-25.1) 05/18/20 01:20 Urine Bacteria (Auto) 285 /uL (0-1359) 05/18/20 01:20 COVID-19 (REMY) Not detected (Not Detected) 05/17/20 22:40 Blood Type A POSITIVE 05/17/20 22:10 Antibody Screen Negative 05/17/20 22:10 tele: sr Assessment/Plan 05/18/[address]: Bilateral effusions R>L, small pericardial effusion, anasarca, trace ascites 04/19/2020 Echo: Mild-mod decreased LVEF 40-45%, mild dilated and decreased RV systolic function, mild LAE, mild MR, TR, AR, tr PA 04/18/[address]: Cardiomegaly and small pericardial effusion, pulm vasc congestion with mild-mod right effusion and basilar ATX 1. Acute on chronic diastolic/systolic heart failure in context of abnormal TSH, diet indiscretion and NSAID use, Covid negative 2. HTN heart disease, BP not at goal 3. Hypercholesterolemia 4. H/o ?TIA vs. CVA 5. Type 2 DM not at goal control 5. History of osteomyelitis 7. Anemia 8. Hypothyroid per TSH REC: 1, Acute on chronic combined CHF: clinically improved -Lasix /Aldactone/Losartan held due to bump in creat noted 05/20 -Daily BMP, can resume above when creat trend stable and as BP allows (aldactone recently introduced) -EF reduced vs prior: will need to discuss ischemic evaluation with patient/PMD in light of current GI plan (was scheduled for C-scope/Endo 05/24 for anemia) -plan was for Lexiscan MPI today but had wheezing so test postponed 2. HTN: Holding Losartan/IV Lasix and Aldactone in light of creat rise -Cont Amlodipine and Coreg -Can resume Losartan/ PO Lasix when BP and renal fxn stable -May not require Aldactone financial investigator. 3. Prior CVA: -ASA/Plavix (per Neuro) on hold for anemia recently requiring PRBCs -Cont statin -No hx of AF on prior admissions nor on tele now 4. Anemia: -recently required admission for PRBCS -Was planned for outpatient GI evaluation (endo/C-scope 05/24) -now euvolemic -Will plan for stress test to assess r/o ischemia and further risk stratify prior to procedures.
[2020-05-22] MEDS ORDERED: PT OWN MED DRAWER 7, Y5N ONE ×2 (13:55→22:12)
[2020-05-22] MEDS: busPIRone HCL 10 MG TABLET (FP) PO SCH ×2 (14:00→22:22)
[2020-05-22] MEDS: FERROUS SO4 325 MG TABLET (FP) PO SCH (14:00)
[2020-05-22] MEDS: amLODIPine BESYLATE 5 MG TABLET (FP) PO SCH (14:00)
[2020-05-22] MEDS: CARVEDILOL 6.25 MG TABLET (FP) PO SCH ×2 (14:00→22:22)
--- NOTE | 2020-05-22 14:40 | PN ---
Teaching Attending Note Name of Resident: Sedrick Ward ATTENDING PHYSICIAN STATEMENT I saw and evaluated the patient. I reviewed the resident's note and discussed the case with the resident. I agree with the resident's findings and plan as documented. SUBJECTIVE: Feeling well, less SOB. Lexiscan held due to wheezing apparently. OBJECTIVE: Afebrile, Hemodynamicaly Stable. SpO2 95% on RA Last Vital Signs Temp Pulse Resp BP Pulse Ox 97.7 F 68 20 155/77 95 05/22/20 08:00 05/22/20 08:00 05/22/20 09:00 05/22/20 08:00 05/22/20 09:00 Heart - S1, S2, RRR Lungs - few bi-basal crackles, no crackles. [place] - Soft, mild epigastric tenderness. Bowel Sounds normal. Extremities - LE edema + R>L. No calf tenderness. Laboratory Results - last 24 hr 05/21/20 05/21/20 05/22/20 16:43 20:43 05:31 WBC RBC Hgb Hct MCV MCH MCHC RDW Plt Count MPV Absolute Neuts (auto) Neutrophils % Lymphocytes % Monocytes % Eosinophils % Basophils % Nucleated RBC % Sodium Potassium Chloride Carbon Dioxide Anion Gap BUN Creatinine Est GFR (CKD-EPI)AfAm Est GFR (CKD-EPI)NonAf POC Glucometer 255 177 184 Random Glucose Calcium Creatine Kinase Troponin I 05/22/20 05/22/20 05/22/20 07:00 07:00 11:52 WBC 4.5 RBC 4.05 Hgb 9.1 L Hct 29.7 L MCV 73.4 L MCH 22.4 L MCHC 30.6 L RDW 24.1 H Plt Count 286 MPV 7.6 Absolute Neuts (auto) 3.2 Neutrophils % 70.6 Lymphocytes % 20.2 Monocytes % 6.6 Eosinophils % 1.5 Basophils % 1.1 Nucleated RBC % 0 Sodium 135 L Potassium 4.6 Chloride 98 Carbon Dioxide 34 H Anion Gap 3 L BUN 33.0 H Creatinine 1.5 H Est GFR (CKD-EPI)AfAm 36.95 Est GFR (CKD-EPI)NonAf 31.88 POC Glucometer 154 Random Glucose 157 H Calcium 8.4 L Creatine Kinase 148 Troponin I < 0.02 Current Medications Generic Name Dose Route Start Last Admin Trade Name Freq PRN Reason Stop Dose Admin Albuterol Sulfate 2 puff 05/19/20 09:57 05/19/20 11:29 Ventolin Hfa Inhaler - IH 2 puff Q4H PRN Administration SHORT OF BREATH/WHEEZING Albuterol/Ipratropium 1 amp 05/19/20 09:05 Duoneb - NEB Q6H PRN SHORTNESS OF BREATH Amlodipine Besylate 5 mg 05/18/20 10:00 05/22/20 14:00 Norvasc - PO 5 mg DAILY EDISON Administration Atorvastatin Calcium 10 mg 05/18/20 22:00 05/21/20 21:35 Lipitor - PO 10 mg HS EDISON Administration Buspirone HCl 10 mg 05/18/20 10:00 05/22/20 14:00 Buspar - PO 10 mg BID EDISON Administration Carvedilol 6.25 mg 05/18/20 02:00 05/22/20 14:00 Coreg - PO 6.25 mg BID EDISON Administration Ferrous Sulfate 325 mg 05/18/20 10:00 05/22/20 14:00 Feosol - PO 325 mg DAILY EDISON Administration Heparin Sodium (Porcine) 5,000 unit 05/19/20 06:00 05/22/20 14:00 Heparin - SQ 5,000 unit TID EDISON Administration Insulin Aspart 1 vial 05/18/20 07:00 05/22/20 12:00 Novolog Vial Sliding Scale - SQ Not Given ACHS [facility] Protocol Levothyroxine Sodium 50 mcg 05/19/20 10:08 05/22/20 06:05 Synthroid - PO 50 mcg ACBK EDISON Administration Losartan Potassium 50 mg 05/18/20 11:30 05/20/20 09:17 Cozaar - PO 50 mg DAILY EDISON Administration Mometasone Furoate 1 puff 05/18/20 22:00 05/21/20 21:43 Asmanex 110mcg - IH 1 puff HS EDISON Administration Pantoprazole Sodium 40 mg 05/18/20 07:00 05/22/20 06:05 Protonix - PO 40 mg AM EDISON Administration Quetiapine Fumarate 12.5 mg 05/18/20 18:15 05/19/20 21:23 Seroquel - PO 12.5 mg HS PRN Administration INSOMNIA Spironolactone 25 mg 05/20/20 11:00 05/20/20 11:19 Aldactone - PO 25 mg DAILY EDISON Administration Trazodone HCl 150 mg 05/18/20 22:00 05/21/20 21:35 Desyrel - PO 150 mg HS EDISON Administration Home Medications Medication Instructions Recorded Amlodipine Besylate [Norvasc -] 1 tab PO DAILY 04/17/20 Atorvastatin Ca [Lipitor] 1 tab PO AM 04/17/20 Buspirone HCl [Buspar -] 1 tab PO BID 04/17/20 Donepezil HCl 5 mg PO AM 04/17/20 Insulin Degludec [Tresiba] 40 unit SQ AM 04/17/20 Losartan Potassium 1 tab PO AM 04/17/20 Metformin HCl [Glucophage] 500 mg PO BID 04/17/20 Pantoprazole Sodium 1 tab PO AM 04/17/20 traZODone HCL [Desyrel -] 150 mg PO HS 04/17/20 Ergocalciferol (Vitamin D2) 50,000 unit PO WEEKLY 04/28/20 [Vitamin D2] Ferrous Sulfate 325 mg PO DAILY 04/28/20 Fluticasone Propionate [Flovent 110 mcg IH DAILY 04/28/20 Hfa] Levothyroxine [Synthroid -] 50 mcg PO DAILY 04/28/20 Quetiapine Fumarate [Seroquel -] 12.5 mg PO HS PRN 04/28/20 Carvedilol [Coreg] 6.25 mg PO BID 30 Days #60 tablet 04/30/20 Furosemide [Lasix] 60 mg PO DAILY 30 Days #45 tablet 04/30/20 ASSESSMENT AND PLAN: 84 year old female with history of Dementia, Chronic Systolic CHF, DM 2, HTN, HLD, Hx TIA/CVA, Hypothyroidism, Depression, Anxiety, Insomnia, presented with increasing SOB, orthopnea and PND. 1. Acute Respiratory Failure secondary to Acute on Chronic Systolic CHF exacerbation CXR - pulmonary vascular congestion CT Chest - Bilateral pleural effusions R>L, cardiomegaly, small pericardial effusion, trace ascites Echo 04/19/20 - EF 40-45%, global hypokinesis. BNP 5276 Weight down Continue Lasix 40mg IVP BID Cardiology following. Monitor Renal Function. Weaned off O2 - SpO2 95% on RA Lexiscan done today, 2nd part postponed due to wheeze. No wheeze on my exam. DuoNeb PRN. Cardiology following. 2. DARIA sec to Lasix - Bump in creat improving on holding Lasix. Aldactone and ARB also held for now. 3. Hypothyroidism, TSH above target at 24 Normally on Levothyroxine daily but intermittently complaint. Endocrinology evaluated - recommend resuming Levothyroxine at 50mcg daily. 4. Microcytic Anemia, DONNA Previously required PRBC transfusion. IV Venofer here. On FeSO4 at home. Scheduled for EGD/[place] with Dr. Cruz 05/24/20 Previously on Aspirin/Plavix, held due to DONNA Lexiscan to help with risk stratification prior to GI procedure. 5. RLE > LLE US Duplex LEs - no DVT 6. Enlarged Uterus with Endometrial Thickening, incidental finding on CT US - endometrial lesion with fluid in endometrial canal. OBGYN evaluated - patient currently declines PV exam - for out-patient follow up and work-up. 7. HLD - continue Statin. 8. Dementia/Depression/Anxiety - continue Donepezil, Buspirone, Seroquel. 9. DM 2 - Tresiba/Metformin held. Maintain on Novolog sliding scale. 10. HTN - uncontrolled on admission. Aldactone initially added to Norvasc, Coreg, Losartan by Cardiology. Aldactone and Losartan now held due to DARIA. Will monitor Renal function. DVT Px - Heparin SQ GI Px - PPI.
[2020-05-22] MEDS: traZODone HCL 50 MG TABLET (FP) PO SCH (22:21)
[2020-05-22] MEDS: ATORVASTATIN CA 10 MG TABLET (FP) PO SCH (22:21)
[2020-05-22] MEDS: MOMETASONE FUROATE 110 MCG/IH INHALER IH SCH (22:24)
[2020-05-22] MEDS: QUEtiapine FUMARATE 25 MG TABLET PO PRN (22:25)
--- NOTE | 2020-05-22 23:52 | PN ---
Progress Note (short form) - Note Progress Note: tolerating synthroid 50mcg daily Abnormal Lab Results 05/22/20 05/22/20 07:00 07:00 Hgb 9.1 L Hct 29.7 L MCV 73.4 L MCH 22.4 L MCHC 30.6 L RDW 24.1 H Sodium 135 L Carbon Dioxide 34 H Anion Gap 3 L BUN 33.0 H Creatinine 1.5 H Random Glucose 157 H Calcium 8.4 L Laboratory Tests 05/18/20 20:45 Free T4 0.97 imp: Current Active Problems hypothyroidism on t4 CHF exacerbation (Acute) synthroid dose 50mcg daily given alone repeat tsh free t4 in 2 weeks to see improved levels Problem List - Problems (1) Hypothyroid Code(s): E03.9 - HYPOTHYROIDISM, UNSPECIFIED (2) SOB (shortness of breath) Code(s): R06.02 - SHORTNESS OF BREATH (3) Anemia Code(s): D64.9 - ANEMIA, UNSPECIFIED (4) Anxiety Code(s): F41.9 - ANXIETY DISORDER, UNSPECIFIED (5) Dementia Code(s): F03.90 - UNSPECIFIED DEMENTIA WITHOUT BEHAVIORAL DISTURBANCE
[2020-05-23] MEDS: HEPARIN NA (PORCINE) 5,000 UNITS/ML 1ML VIAL SQ SCH ×3 (06:04→21:25)
[2020-05-23] MEDS: INSULIN SLIDING SCALE (NOVOLOG) 1 VIAL SQ SCH ×4 (06:33→21:26)
[2020-05-23] MEDS: PANTOPRAZOLE 40 MG TABLET PO SCH (06:35)
[2020-05-23] MEDS: LEVOTHYROXINE NA 50 MCG TABLET (FP) PO SCH (06:35)
--- NOTE | 2020-05-23 07:01 | PN ---
Physical Exam: SUBJECTIVE: Patient seen and examined OBJECTIVE: Vital Signs Period Temp Pulse Resp BP Sys/Persaud Pulse Ox Last 24 Hr 97.6 F-97.9 F 60-69 20-22 137-174/63-88 95-95 GENERAL: The patient is awake, alert, and fully oriented, in no acute distress. HEAD: Normal with no signs of trauma. EYES: PERRL, extraocular movements intact, sclera anicteric, conjunctiva clear. No ptosis. ENT: Ears normal, nares patent, oropharynx clear without exudates, moist mucous membranes. NECK: Trachea midline, full range of motion, supple. LUNGS: Breath sounds equal, clear to auscultation bilaterally, no wheezes, no crackles, no accessory muscle use. HEART: Regular rate and rhythm, S1, S2 without murmur, rub or gallop. ABDOMEN: Soft, nontender, nondistended, normoactive bowel sounds, no guarding, no rebound, no hepatosplenomegaly, no masses. EXTREMITIES: 2+ pulses, warm, well-perfused, no edema. NEUROLOGICAL: Cranial nerves II through XII grossly intact. Normal speech, gait not observed. PSYCH: Normal mood, normal affect. SKIN: Warm, dry, normal turgor, no rashes or lesions noted Laboratory Results - last 24 hr 05/22/20 05/22/20 05/22/20 07:00 07:00 11:52 WBC 4.5 RBC 4.05 Hgb 9.1 L Hct 29.7 L MCV 73.4 L MCH 22.4 L MCHC 30.6 L RDW 24.1 H Plt Count 286 MPV 7.6 Absolute Neuts (auto) 3.2 Neutrophils % 70.6 Lymphocytes % 20.2 Monocytes % 6.6 Eosinophils % 1.5 Basophils % 1.1 Nucleated RBC % 0 Sodium 135 L Potassium 4.6 Chloride 98 Carbon Dioxide 34 H Anion Gap 3 L BUN 33.0 H Creatinine 1.5 H Est GFR (CKD-EPI)AfAm 36.95 Est GFR (CKD-EPI)NonAf 31.88 POC Glucometer 154 Random Glucose 157 H Calcium 8.4 L Creatine Kinase 148 Troponin I < 0.02 05/22/20 05/22/20 05/23/20 16:39 22:18 06:24 WBC RBC Hgb Hct MCV MCH MCHC RDW Plt Count MPV Absolute Neuts (auto) Neutrophils % Lymphocytes % Monocytes % Eosinophils % Basophils % Nucleated RBC % Sodium Potassium Chloride Carbon Dioxide Anion Gap BUN Creatinine Est GFR (CKD-EPI)AfAm Est GFR (CKD-EPI)NonAf POC Glucometer 201 167 181 Random Glucose Calcium Creatine Kinase Troponin I Active Medications Generic Name Dose Route Start Last Admin Trade Name Freq PRN Reason Stop Dose Admin Albuterol Sulfate 2 puff 05/19/20 09:57 05/19/20 11:29 Ventolin Hfa Inhaler - IH 2 puff Q4H PRN Administration SHORT OF BREATH/WHEEZING Albuterol/Ipratropium 1 amp 05/19/20 09:05 Duoneb - NEB Q6H PRN SHORTNESS OF BREATH Amlodipine Besylate 5 mg 05/18/20 10:00 05/22/20 14:00 Norvasc - PO 5 mg DAILY EDISON Administration Atorvastatin Calcium 10 mg 05/18/20 22:00 05/22/20 22:21 Lipitor - PO 10 mg HS EDISON Administration Buspirone HCl 10 mg 05/18/20 10:00 05/22/20 22:22 Buspar - PO 10 mg BID EDISON Administration Carvedilol 6.25 mg 05/18/20 02:00 05/22/20 22:22 Coreg - PO 6.25 mg BID EDISON Administration Ferrous Sulfate 325 mg 05/18/20 10:00 05/22/20 14:00 Feosol - PO 325 mg DAILY EDISON Administration Heparin Sodium (Porcine) 5,000 unit 05/19/20 06:00 05/23/20 06:04 Heparin - SQ 5,000 unit TID EDISON Administration Insulin Aspart 1 vial 05/18/20 07:00 05/23/20 06:33 Novolog Vial Sliding Scale - SQ 2 units ACHS EDISON Administration Protocol Levothyroxine Sodium 50 mcg 05/19/20 10:08 05/23/20 06:35 Synthroid - PO 50 mcg ACBK EDISON Administration Losartan Potassium 50 mg 05/18/20 11:30 05/20/20 09:17 Cozaar - PO 50 mg DAILY EDISON Administration Mometasone Furoate 1 puff 05/18/20 22:00 05/22/20 22:24 Asmanex 110mcg - IH 1 puff HS EDISON Administration Pantoprazole Sodium 40 mg 05/18/20 07:00 05/23/20 06:35 Protonix - PO 40 mg AM EDISON Administration Quetiapine Fumarate 12.5 mg 05/18/20 18:15 05/22/20 22:25 Seroquel - PO 12.5 mg HS PRN Administration INSOMNIA Spironolactone 25 mg 05/20/20 11:00 05/20/20 11:19 Aldactone - PO 25 mg DAILY EDISON Administration Trazodone HCl 150 mg 05/18/20 22:00 05/22/20 22:21 Desyrel - PO 150 mg HS EDISON Administration ASSESSMENT/PLAN: ATTENDING PHYSICIAN STATEMENT I saw and evaluated the patient. I reviewed the resident's note and discussed the case with the resident. I agree with the resident's findings and plan as documented. SUBJECTIVE: OBJECTIVE: ASSESSMENT AND PLAN:
[2020-05-23] MEDS: LOSARTAN POTASSIUM 50 MG TABLET (FP) PO SCH ×2 (08:19→11:43)
[2020-05-23] MEDS: amLODIPine BESYLATE 5 MG TABLET (FP) PO SCH ×2 (08:19→11:44)
[2020-05-23 08:20] LABS: HEMATOCRIT 31.3 % (32.4-45.2); HEMOGLOBIN 9.7 GM/dL (10.7-15.3); MEAN CELL VOLUME 74.3 fl (80-96); MEAN PLT VOLUME 7.7 fl (7.5-11.1); PLATELET COUNT 286 K/MM3 (134-434); RBC 4.21 M/mm3 (3.60-5.2); RDW 24.4 % (11.6-15.6); WHITE BLOOD COUNT 4.8 K/mm3 (4.0-10.0)
[2020-05-23 08:40] LABS: BLOOD UREA NITROGEN 30.2 mg/dL (7-18); CALCIUM 8.6 mg/dL (8.5-10.1); POTASSIUM 4.3 mmol/L (3.5-5.1)
[2020-05-23 08:42] LABS: CREATININE 1.3 mg/dL (0.55-1.3)
[2020-05-23] MEDS ORDERED: REGADENOSON 0.4 MG/5 ML PRE-FILLED SYRINGE IVPUSH ONE ×2 (10:11→13:00)
[2020-05-23] MEDS ORDERED: PT OWN MED DRAWER 7, Y5N ONE ×3 (11:53→21:14)
[2020-05-23] MEDS: FERROUS SO4 325 MG TABLET (FP) PO SCH (12:32)
[2020-05-23] MEDS: CARVEDILOL 6.25 MG TABLET (FP) PO SCH ×2 (12:33→21:27)
[2020-05-23] MEDS: SPIRONOLACTONE 25 MG TABLET PO SCH (12:34)
[2020-05-23] MEDS: busPIRone HCL 10 MG TABLET (FP) PO SCH ×2 (12:34→21:24)
--- NOTE | 2020-05-23 12:54 | PN ---
Progress Note (short form) - Note Progress Note: s: no chest pain, palps, dizziness, dyspnea Current Medications Generic Name Dose Route Start Last Admin Trade Name Freq PRN Reason Stop Dose Admin Albuterol Sulfate 2 puff 05/19/20 09:57 05/19/20 11:29 Ventolin Hfa Inhaler - IH 2 puff Q4H PRN Administration SHORT OF BREATH/WHEEZING Albuterol/Ipratropium 1 amp 05/19/20 09:05 Duoneb - NEB Q6H PRN SHORTNESS OF BREATH Amlodipine Besylate 5 mg 05/18/20 10:00 05/23/20 11:44 Norvasc - PO Not Given DAILY EDISON Atorvastatin Calcium 10 mg 05/18/20 22:00 05/22/20 22:21 Lipitor - PO 10 mg HS EDISON Administration Buspirone HCl 10 mg 05/18/20 10:00 05/23/20 12:34 Buspar - PO 10 mg BID EDISON Administration Carvedilol 6.25 mg 05/18/20 02:00 05/23/20 12:33 Coreg - PO 6.25 mg BID EDISON Administration Ferrous Sulfate 325 mg 05/18/20 10:00 05/23/20 12:32 Feosol - PO 325 mg DAILY EDISON Administration Heparin Sodium (Porcine) 5,000 unit 05/19/20 06:00 05/23/20 06:04 Heparin - SQ 5,000 unit TID EDISON Administration Insulin Aspart 1 vial 05/18/20 07:00 05/23/20 12:44 Novolog Vial Sliding Scale - SQ 2 units ACHS EDIOSN Administration Protocol Levothyroxine Sodium 50 mcg 05/19/20 10:08 05/23/20 06:35 Synthroid - PO 50 mcg ACBK EDISON Administration Losartan Potassium 50 mg 05/18/20 11:30 05/23/20 11:43 Cozaar - PO Not Given DAILY EDISON Mometasone Furoate 1 puff 05/18/20 22:00 05/22/20 22:24 Asmanex 110mcg - IH 1 puff HS EDISON Administration Pantoprazole Sodium 40 mg 05/18/20 07:00 05/23/20 06:35 Protonix - PO 40 mg AM EDISON Administration Quetiapine Fumarate 12.5 mg 05/18/20 18:15 05/22/20 22:25 Seroquel - PO 12.5 mg HS PRN Administration INSOMNIA Regadenoson 0.4 mg 05/23/20 13:00 Lexiscan IVPUSH 05/23/20 13:01 ONCE ONE Spironolactone 25 mg 05/20/20 11:00 05/23/20 12:34 Aldactone - PO 25 mg DAILY EDISON Administration Trazodone HCl 150 mg 05/18/20 22:00 05/22/20 22:21 Desyrel - PO 150 mg HS EDISON Administration Vital Signs Period Temp Pulse Resp BP Sys/Persaud Pulse Ox Last 24 Hr 97.6 F-98.1 F 60-73 20-20 137-174/63-88 95-96 Constitutional: Yes: No Distress, Calm Cardiovascular: Yes: Regular Rate and Rhythm Respiratory: Yes: CTA Bilaterally, Rhonchi Gastrointestinal: Yes: Soft (nt) Edema: trace le edema bl Neurological: Yes: Alert, Oriented no jaundice diaphoresis tele: sinus Assessment/Plan 05/18/[address]: Bilateral effusions R>L, small pericardial effusion, anasarca, trace ascites 04/19/2020 Echo: Mild-mod decreased LVEF 40-45%, mild dilated and decreased RV systolic function, mild LAE, mild MR, TR, AR, tr MI 04/18/[address]: Cardiomegaly and small pericardial effusion, pulm vasc congestion with mild-mod right effusion and basilar ATX 1. Acute on chronic diastolic/systolic heart failure in context of abnormal TSH, diet indiscretion and NSAID use, Covid negative 2. HTN heart disease, BP not at goal 3. Hypercholesterolemia 4. H/o ?TIA vs. CVA 5. Type 2 DM not at goal control 5. History of osteomyelitis 7. Anemia 8. Hypothyroid per TSH REC: 1, Acute on chronic combined CHF: clinically improved -Lasix /Aldactone/Losartan held initially due to bump in creat noted 05/20, now aldactone, losartan resumed for elevated BP, cr stable - holding lasix -EF reduced vs prior; lexiscan MPI for ischemic workup is pending 2. HTN: -Cont Amlodipine and Coreg, losartan and aldactone resumed 3. Prior CVA: -ASA/Plavix (per Neuro) on hold for anemia recently requiring PRBCs -Cont statin -No hx of AF on prior admissions nor on tele now 4. Anemia: -recently required admission for PRBCS -Was planned for outpatient GI evaluation (endo/C-scope 05/24)
--- NOTE | 2020-05-23 15:00 | PN ---
Teaching Attending Note Name of Resident: Sedrick Ward ATTENDING PHYSICIAN STATEMENT I saw and evaluated the patient. I reviewed the resident's note and discussed the case with the resident. I agree with the resident's findings and plan as documented. SUBJECTIVE: Seen and examined at bedside. No complaints. Lexiscan shows large sized area of moderate to severe ischemia involving the entire anterior wall and inferior lateral segment with an ejection fraction of 24%. OBJECTIVE: Last Vital Signs Temp Pulse Resp BP Pulse Ox 98.1 F 78 20 144/97 96 05/23/20 09:09 05/23/20 12:25 05/23/20 12:25 05/23/20 12:25 05/23/20 09:00 PE: per resident note Labs/Imaging : reviewed ASSESSMENT AND PLAN: 84 year old female with history of Dementia, Chronic Systolic CHF, DM 2, HTN, HLD, Hx TIA/CVA, Hypothyroidism, Depression, Anxiety, Insomnia, presented with increasing SOB, orthopnea and PND, admitted for CHF exacerbation. #Acute Respiratory Failure secondary to Acute on Chronic Systolic CHF exacerbation Lexiscan- Large sized area of moderate to severe ischemia involving the entire anterior wall and inferior lateral segment with an ejection fraction of 24%. CXR - pulmonary vascular congestion CT Chest - Bilateral pleural effusions R>L, cardiomegaly, small pericardial effusion, trace ascites Echo 04/19/20 - EF 40-45%, global hypokinesis. BNP 5276 Weight down Cardiology following. Monitor Renal Function. Weaned off O2 - SpO2 95% on RA Lexiscan done today, 2nd part postponed due to wheeze. No wheeze on my exam. DuoNeb PRN. Cardiology following. #DARIA 2/2 lasix: improving -restarted aldactone and losaratansec to Lasix - Bump in creat improving on holding Lasix. Aldactone and ARB also held for now. #Hypothyroidism, TSH above target at 24 Normally on Levothyroxine daily but intermittently complaint. Endocrinology evaluated - recommend resuming Levothyroxine at 50mcg daily. #Microcytic Anemia, DONNA Previously required PRBC transfusion. IV Venofer here. On FeSO4 at home. Scheduled for EGD/[place] with Dr. Cruz 05/24/20 Previously on Aspirin/Plavix, held due to DONNA Lexiscan to help with risk stratification prior to GI procedure. # RLE > LLE US Duplex LEs - no DVT #Enlarged Uterus with Endometrial Thickening, incidental finding on CT US - endometrial lesion with fluid in endometrial canal. OBGYN evaluated - patient currently declines PV exam - for out-patient follow up and work-up. #Dementia/Depression/Anxiety - continue Donepezil, Buspirone, Seroquel. #DM 2 - Tresiba/Metformin held. Maintain on Novolog sliding scale. # HTN - uncontrolled on admission. Aldactone initially added to Norvasc, Coreg, Losartan by Cardiology. Aldactone and Losartan now held due to DARIA. Will monitor Renal function. DVT Px - Heparin SQ GI Px - PPI.
[2020-05-23] MEDS ORDERED: INSULIN (NOVOLOG) ASPART 100 UNITS/ML 10ML VIAL ONE (16:55)
--- NOTE | 2020-05-23 19:05 | PN ---
Physical Exam: SUBJECTIVE: Patient seen and examined at bedside. The patient was comfortable and denied any SOB, trouble breathing, or chest pain. Patient was able to have a bowel movement and an appetite. OBJECTIVE: Vital Signs Period Temp Pulse Resp BP Sys/Persaud Pulse Ox Last 24 Hr 97.4 F-98.2 F 60-78 20-20 137-174/63-97 95-96 GENERAL: The patient is awake, alert, and fully oriented, in no acute distress. HEAD: Normal with no signs of trauma. EYES: PERRL, extraocular movements intact, sclera anicteric, conjunctiva clear. No ptosis. NECK: Trachea midline, full range of motion, supple. LUNGS: Mild crackles bilateral bases HEART: Regular rate and rhythm, S1, S2 without murmur, rub or gallop. EXTREMITIES: 2+ edema BL LE PSYCH: Normal mood, normal affect. SKIN: Warm, dry, normal turgor, no rashes or lesions noted Laboratory Results - last 24 hr 05/22/20 05/23/20 05/23/20 22:18 06:24 07:51 WBC 4.8 RBC 4.21 Hgb 9.7 L Hct 31.3 L MCV 74.3 L MCH 23.0 L MCHC 31.0 L RDW 24.4 H Plt Count 286 MPV 7.7 Sodium Potassium Chloride Carbon Dioxide Anion Gap BUN Creatinine Est GFR (CKD-EPI)AfAm Est GFR (CKD-EPI)NonAf POC Glucometer 167 181 Random Glucose Calcium 05/23/20 05/23/20 05/23/20 07:51 12:40 16:52 WBC RBC Hgb Hct MCV MCH MCHC RDW Plt Count MPV Sodium 136 Potassium 4.3 Chloride 100 Carbon Dioxide 31 Anion Gap 5 L BUN 30.2 H Creatinine 1.3 Est GFR (CKD-EPI)AfAm 43.93 Est GFR (CKD-EPI)NonAf 37.91 POC Glucometer 158 219 Random Glucose 174 H Calcium 8.6 Active Medications Generic Name Dose Route Start Last Admin Trade Name Freq PRN Reason Stop Dose Admin Albuterol Sulfate 2 puff 05/19/20 09:57 05/19/20 11:29 Ventolin Hfa Inhaler - IH 2 puff Q4H PRN Administration SHORT OF BREATH/WHEEZING Albuterol/Ipratropium 1 amp 05/19/20 09:05 Duoneb - NEB Q6H PRN SHORTNESS OF BREATH Amlodipine Besylate 5 mg 05/18/20 10:00 05/23/20 11:44 Norvasc - PO Not Given DAILY EDISON Atorvastatin Calcium 10 mg 05/18/20 22:00 05/22/20 22:21 Lipitor - PO 10 mg HS EDISON Administration Buspirone HCl 10 mg 05/18/20 10:00 05/23/20 12:34 Buspar - PO 10 mg BID EDISON Administration Carvedilol 6.25 mg 05/18/20 02:00 05/23/20 12:33 Coreg - PO 6.25 mg BID EDISON Administration Ferrous Sulfate 325 mg 05/18/20 10:00 05/23/20 12:32 Feosol - PO 325 mg DAILY EDISON Administration Heparin Sodium (Porcine) 5,000 unit 05/19/20 06:00 05/23/20 14:11 Heparin - SQ 5,000 unit TID EDISON Administration Insulin Aspart 1 vial 05/18/20 07:00 05/23/20 16:58 Novolog Vial Sliding Scale - SQ 4 units ACHS EDISON Administration Protocol Levothyroxine Sodium 50 mcg 05/19/20 10:08 05/23/20 06:35 Synthroid - PO 50 mcg ACBK EDISON Administration Losartan Potassium 50 mg 05/18/20 11:30 05/23/20 11:43 Cozaar - PO Not Given DAILY EDISON Mometasone Furoate 1 puff 05/18/20 22:00 05/22/20 22:24 Asmanex 110mcg - IH 1 puff HS EDISON Administration Pantoprazole Sodium 40 mg 05/18/20 07:00 05/23/20 06:35 Protonix - PO 40 mg AM EDISON Administration Quetiapine Fumarate 12.5 mg 05/18/20 18:15 05/22/20 22:25 Seroquel - PO 12.5 mg HS PRN Administration INSOMNIA Spironolactone 25 mg 05/20/20 11:00 05/23/20 12:34 Aldactone - PO 25 mg DAILY EDISON Administration Trazodone HCl 150 mg 05/18/20 22:00 05/22/20 22:21 Desyrel - PO 150 mg HS EDISON Administration ASSESSMENT/PLAN: 84F w a PMHx of Dementia, Chronic Systolic CHF, DM 2, HTN, HLD, Hx TIA/CVA, Hyp othyroidism, Depression, Anxiety, Insomnia. The patient presents to the hospital with SOB, orthopnea and PND, and she was admitted for CHF exacerbation. 1. Acute Respiratory Failure secondary to Acute on Chronic Systolic CHF exacerbation Patient continued the second part of the Lexiscan- Results show moderate to severe ischemia involving the entire anterior wall and inferior lateral segment with an EF of 24%. When compared to an Echo preformed on 04/19/20 the resulting EF was 40-45%, global hypokinesis. Last BNP 5276 CXR preformed revealed bilateral pulmonary vascular congestion CT Chest preformed shows bilateral pleural effusions which is more prominent on the right than left CT chest also revealed -cardiomegaly, -small pericardial effusion -trace ascites - Patients weight has trended down from 210 to 203 Cardiology on board (Dr. Garcia) Monitor Renal Function Weaned off O2 - SpO2 95% on RA DuoNeb PRN. 2. DARIA -restarted aldactone and losaratansec to Lasix - Lasix is being held due to increase in creatinine - Patients aldactone and ARB are also being held - Monitor BP 3. Hypothyroidism Normally on Levothyroxine daily but intermittently complaint. Endocrinology evaluated - recommend resuming Levothyroxine at 50mcg daily. 4. Microcytic Anemia, DONNA Previously required PRBC transfusion. IV Venofer here. On FeSO4 at home. CONFIRMED WITH Dr. Cruz THAT PATIENT IS NOT SCHEDULED FOR COLONOSCOPY Previously on Aspirin/Plavix, held due to DONNA 5. RLE > LLE US Duplex LEs - no DVT 6. Enlarged Uterus with Endometrial Thickening, incidental finding on CT US findings show an endometrial lesion with fluid in endometrial canal. OBGYN evaluated - patient currently declines PV exam - for out-patient follow up and work-up. 7. Dementia/Depression/Anxiety continue Donepezil, Buspirone, Seroquel. 8. DM2 Due to bump in creatinine the Tresiba/Metformin held. Maintain on Novolog sliding scale. 9. HTN uncontrolled on admission. Aldactone initially added to Norvasc, Coreg, Losartan by Cardiology. Aldactone and Losartan now held due to DARIA. Will monitor Renal function. DVT Px - Heparin SQ GI Px - PPI. ATTENDING PHYSICIAN STATEMENT I saw and evaluated the patient. I reviewed the resident's note and discussed the case with the resident. I agree with the resident's findings and plan as documented. SUBJECTIVE: OBJECTIVE: ASSESSMENT AND PLAN:
[2020-05-23] MEDS: traZODone HCL 50 MG TABLET (FP) PO SCH (21:23)
[2020-05-23] MEDS: ATORVASTATIN CA 10 MG TABLET (FP) PO SCH (21:24)
[2020-05-23] MEDS: MOMETASONE FUROATE 110 MCG/IH INHALER IH SCH (21:25)
[2020-05-24] MEDS ORDERED: INSULIN (NOVOLOG) ASPART 100 UNITS/ML 10ML VIAL ONE ×2 (06:24→10:59)
[2020-05-24] MEDS: HEPARIN NA (PORCINE) 5,000 UNITS/ML 1ML VIAL SQ SCH (06:26)
[2020-05-24] MEDS: LEVOTHYROXINE NA 50 MCG TABLET (FP) PO SCH (06:27)
[2020-05-24] MEDS: PANTOPRAZOLE 40 MG TABLET PO SCH (06:27)
[2020-05-24] MEDS: INSULIN SLIDING SCALE (NOVOLOG) 1 VIAL SQ SCH ×2 (06:55→11:15)
[2020-05-24 08:03] LABS: BASO % 0.6 % (0-2.0); EOS % 2.2 % (0-4.5); HEMOGLOBIN 9.2 GM/dL (10.7-15.3); MCH 22.3 pg (25.7-33.7); MCHC 30.6 g/dl (32.0-36.0); MEAN PLT VOLUME 7.4 fl (7.5-11.1); NEUT % 65.2 % (42.8-82.8); PLATELET COUNT 293 K/MM3 (134-434); RBC 4.11 M/mm3 (3.60-5.2); RDW 25.6 % (11.6-15.6); WHITE BLOOD COUNT 4.3 K/mm3 (4.0-10.0)
[2020-05-24 08:26] LABS: BLOOD UREA NITROGEN 26.2 mg/dL (7-18); CALCIUM 8.5 mg/dL (8.5-10.1); POTASSIUM 4.5 mmol/L (3.5-5.1)
[2020-05-24 08:28] LABS: BILIRUBIN,TOTAL 0.5 mg/dL (0.2-1); CREATININE 1.2 mg/dL (0.55-1.3); TOT PROT 7.8 g/dl (6.4-8.2)
[2020-05-24 09:39] VITALS: BP 158/82; PULSE 80; TEMP 98
[2020-05-24] MEDS: busPIRone HCL 10 MG TABLET (FP) PO SCH (09:40)
[2020-05-24] MEDS: CARVEDILOL 6.25 MG TABLET (FP) PO SCH (09:40)
[2020-05-24] MEDS: LOSARTAN POTASSIUM 50 MG TABLET (FP) PO SCH (09:40)
[2020-05-24] MEDS: FERROUS SO4 325 MG TABLET (FP) PO SCH (09:40)
[2020-05-24] MEDS: amLODIPine BESYLATE 5 MG TABLET (FP) PO SCH (09:40)
[2020-05-24] MEDS: SPIRONOLACTONE 25 MG TABLET PO SCH (09:40)
[2020-05-24] MEDS ORDERED: FUROSEMIDE 40 MG/4 ML INJECTABLE VIAL IVPUSH ONE (11:35)
[2020-05-24] MEDS ORDERED: FUROSEMIDE 40 MG TABLET (FP) PO ONE (11:45)
[2020-05-24 12:04] LABS: ANISOCYTOSIS 1+; MACROCYTOSIS 0; PLATELET ESTIMATE NORMAL
--- NOTE | 2020-05-24 12:16 | PN ---
Progress Note (short form) - Note Progress Note: s: no chest pain, palps, dizziness, dyspnea no smoking hx Current Medications Generic Name Dose Route Start Last Admin Trade Name Freq PRN Reason Stop Dose Admin Albuterol Sulfate 2 puff 05/19/20 09:57 05/19/20 11:29 Ventolin Hfa Inhaler - IH 2 puff Q4H PRN Administration SHORT OF BREATH/WHEEZING Albuterol/Ipratropium 1 amp 05/19/20 09:05 Duoneb - NEB Q6H PRN SHORTNESS OF BREATH Amlodipine Besylate 5 mg 05/18/20 10:00 05/24/20 09:40 Norvasc - PO 5 mg DAILY EDISON Administration Atorvastatin Calcium 10 mg 05/18/20 22:00 05/23/20 21:24 Lipitor - PO 10 mg HS EDISON Administration Buspirone HCl 10 mg 05/18/20 10:00 05/24/20 09:40 Buspar - PO 10 mg BID EDISON Administration Carvedilol 6.25 mg 05/18/20 02:00 05/24/20 09:40 Coreg - PO 6.25 mg BID EDISON Administration Ferrous Sulfate 325 mg 05/18/20 10:00 05/24/20 09:40 Feosol - PO 325 mg DAILY EDISON Administration Furosemide 60 mg 05/25/20 10:00 Lasix - PO DAILY EDISON Heparin Sodium (Porcine) 5,000 unit 05/19/20 06:00 05/24/20 06:26 Heparin - SQ 5,000 unit TID EDISON Administration Insulin Aspart 1 vial 05/18/20 07:00 05/24/20 11:15 Novolog Vial Sliding Scale - SQ 2 units ACHS EDISON Administration Protocol Levothyroxine Sodium 50 mcg 05/19/20 10:08 05/24/20 06:27 Synthroid - PO 50 mcg ACBK EDISON Administration Losartan Potassium 50 mg 05/18/20 11:30 05/24/20 09:40 Cozaar - PO 50 mg DAILY EDISON Administration Mometasone Furoate 1 puff 05/18/20 22:00 05/23/20 21:25 Asmanex 110mcg - IH 1 puff HS EDISON Administration Pantoprazole Sodium 40 mg 05/18/20 07:00 05/24/20 06:27 Protonix - PO 40 mg AM EDISON Administration Quetiapine Fumarate 12.5 mg 05/18/20 18:15 05/22/20 22:25 Seroquel - PO 12.5 mg HS PRN Administration INSOMNIA Spironolactone 25 mg 05/20/20 11:00 05/24/20 09:40 Aldactone - PO 25 mg DAILY EDISON Administration Trazodone HCl 150 mg 05/18/20 22:00 05/23/20 21:23 Desyrel - PO 150 mg HS EDISON Administration Vital Signs Period Temp Pulse Resp BP Sys/Persaud Pulse Ox Last 24 Hr 97.1 F-98.5 F 60-80 16-20 139-161/8-97 95-96 Constitutional: Yes: No Distress, Calm Cardiovascular: Yes: Regular Rate and Rhythm Respiratory: Yes: CTA Bilaterally, Rhonchi Gastrointestinal: Yes: Soft (nt) Edema: trace le edema bl Neurological: Yes: Alert, Oriented no jaundice diaphoresis tele: sinus Assessment/Plan 05/18/[address]: Bilateral effusions R>L, small pericardial effusion, anasarca, trace ascites 04/19/2020 Echo: Mild-mod decreased LVEF 40-45%, mild dilated and decreased RV systolic function, mild LAE, mild MR, TR, AR, tr CT 04/18/[address]: Cardiomegaly and small pericardial effusion, pulm vasc congestion with mild-mod right effusion and basilar ATX Nuclear stress 05/2020 large size area of mod to severe ischemia involving entire inferior wall and inferolateral segment, EF 24% with inferior wall hypokinesis 1. Acute on chronic diastolic/systolic heart failure in context of abnormal TSH, diet indiscretion and NSAID use, Covid negative 2. HTN heart disease, BP not at goal 3. Hypercholesterolemia 4. H/o ?TIA vs. CVA 5. Type 2 DM not at goal control 5. History of osteomyelitis 7. Anemia 8. Hypothyroid per TSH REC: 1, Acute on chronic combined CHF: clinically improved -Lasix /Aldactone/Losartan held initially due to bump in creat noted 05/20, now aldactone, losartan resumed for elevated BP, cr stable - holding lasix -EF reduced vs prior; mibi shows large area of mod to severe ischemia of entire inferior and inferolateral wall, EF 24% -awaiting transfer to [facility] [place] for cath for further evaluation 2. HTN: -Cont Amlodipine and Coreg, losartan and aldactone resumed 3. Prior CVA: -ASA/Plavix (per Neuro) on hold for anemia recently requiring PRBCs -Cont statin -No hx of AF on prior admissions nor on tele now 4. Anemia: -recently required admission for PRBCS -Was planned for outpatient GI evaluation (endo/C-scope 05/24) - at high risk for GI procedures - plan for further evaluation of CAD with cath as above prior to pursuing EGD/colonoscopy
--- NOTE | 2020-05-24 20:54 | DS ---
Physical Exam: SUBJECTIVE: Patient seen and examined OBJECTIVE: Vital Signs Period Temp Pulse Resp BP Sys/Persaud Pulse Ox Last 24 Hr 97.1 F-98 F 61-80 16-20 141-161/61-85 95 PHYSICAL EXAM GENERAL: The patient is awake, alert, and fully oriented, in no acute distress. HEAD: Normal with no signs of trauma. EYES: PERRL, extraocular movements intact, sclera anicteric, conjunctiva clear. ENT: Ears normal, nares patent, oropharynx clear without exudates, moist mucous membranes. NECK: Trachea midline, full range of motion, supple. LUNGS: Breath sounds equal, clear to auscultation bilaterally, no wheezes, no crackles, no accessory muscle use. HEART: Regular rate and rhythm, S1, S2 without murmur, rub or gallop. ABDOMEN: Soft, nontender, nondistended, normoactive bowel sounds, no guarding, no rebound, no hepatosplenomegaly, no masses. EXTREMITIES: 2+ pulses, warm, well-perfused, no edema. NEUROLOGICAL: Cranial nerves II through XII grossly intact. Normal speech, gait not observed. PSYCH: Normal mood, normal affect. SKIN: Warm, dry, normal turgor, no rashes or lesions noted. LABS Laboratory Results - last 24 hr 05/23/20 05/24/20 05/24/20 21:23 06:33 07:08 WBC 4.3 RBC 4.11 Hgb 9.2 L Hct 30.0 L MCV 73.0 L MCH 22.3 L MCHC 30.6 L RDW 25.6 H Plt Count 293 MPV 7.4 L Absolute Neuts (auto) 2.8 Neutrophils % 65.2 Lymphocytes % 25.0 D Monocytes % 7.0 Eosinophils % 2.2 Basophils % 0.6 Nucleated RBC % 0 Hypochromia 1+ Platelet Estimate Normal Polychromasia 1+ Anisocytosis 1+ Microcytosis 1+ Macrocytosis 0 Sodium Potassium Chloride Carbon Dioxide Anion Gap BUN Creatinine Est GFR (CKD-EPI)AfAm Est GFR (CKD-EPI)NonAf POC Glucometer 236 158 Random Glucose Calcium Total Bilirubin AST ALT Alkaline Phosphatase Total Protein Albumin 05/24/20 05/24/20 07:08 10:52 WBC RBC Hgb Hct MCV MCH MCHC RDW Plt Count MPV Absolute Neuts (auto) Neutrophils % Lymphocytes % Monocytes % Eosinophils % Basophils % Nucleated RBC % Hypochromia Platelet Estimate Polychromasia Anisocytosis Microcytosis Macrocytosis Sodium 135 L Potassium 4.5 Chloride 101 Carbon Dioxide 29 Anion Gap 5 L BUN 26.2 H Creatinine 1.2 Est GFR (CKD-EPI)AfAm 48.40 Est GFR (CKD-EPI)NonAf 41.76 POC Glucometer 196 Random Glucose 157 H Calcium 8.5 Total Bilirubin 0.5 AST 17 ALT 23 Alkaline Phosphatase 91 Total Protein 7.8 Albumin 3.0 L HOSPITAL COURSE: Date of Admission:05/18/20 Date of Discharge: 05/24/20 Minutes to complete discharge: 40 Discharge Summary Problems reviewed: Yes Reason For Visit: ACUTE ON CHRONIC CONGESTIVE HEART FAILURE Condition: Good - Instructions Diet, Activity, Other Instructions: Your visit: You were admitted to the hospital for increasing shortness of breath. You were found to have an acute respiratory Failure from systolic congestive heart failure exacerbation, acute kidney injury, hypothyroidism, anemia, and an incidental finding of an enlarged uterus on cat scan. You were evaluated and treated by cardiology, nephrology, endocrinology, and EX CHEF. You recieved a chest xray, cat scan, ultrasound of your legs, echo cardiogram test of your heart and blood tests. While you were here you had a cat scan preformed to look at your lungs. Incidentally you were found to have an enlarged uterus. Please follow up with your EX CHEF On your blood test you were found to have anemia which is a low blood count and will need to be followed up with your primary care provider Medications: We have made changes to your medication Continue to take all other medications as prescribed Follow up - Please follow up with your granite block paver Dr. Charles within 1 week to follow up with your heart echo test. - Please follow up with your emt driver Dr. Ward within 1 week to follow up with your thyroid levels. - Please follow up with your EX CHEF Dr. Guadarrama within 1 week to follow up with your uterine findings - Visit with your primary care provider in 1 week. if you do not have a primary care provider you make make an appointment with Dr. Sedrick Ward Referrals: Yulisa Charles MD [Staff Physician] - 1 Week Sandy Guadarrama MD [Staff Physician] - 1 Week Ginny Van MD [Primary Care Provider] - 1 Week Rick Ward MD [Staff Physician] - 1 Week Disposition: TRANSFER ACUTE CARE/OTHER HOSP - Home Medications Comprehensive Discharge Medication List: Ambulatory Orders Atorvastatin Ca [Lipitor] 1 tab PO AM 04/17/20 Losartan Potassium 1 tab PO AM 04/17/20 Metformin HCl [Glucophage] 500 mg PO BID 04/17/20 Pantoprazole Sodium 1 tab PO AM 04/17/20 traZODone HCL [Desyrel -] 150 mg PO HS 04/17/20 Ferrous Sulfate 325 mg PO DAILY 04/28/20 Levothyroxine [Synthroid -] 50 mcg PO DAILY 04/28/20 Quetiapine Fumarate [Seroquel -] 12.5 mg PO HS PRN 04/28/20 Carvedilol [Coreg] 6.25 mg PO BID 30 Days #60 tablet 04/30/20 Furosemide [Lasix] 60 mg PO DAILY 30 Days #45 tablet 04/30/20 - Discharge Referral Referred to [facility] No ATTENDING PHYSICIAN STATEMENT I saw and evaluated the patient. I reviewed the resident's note and discussed the case with the resident. I agree with the resident's findings and plan as documented. SUBJECTIVE: OBJECTIVE: ASSESSMENT AND PLAN:
[2020-05-25] MEDS ORDERED: FUROSEMIDE 40 MG TABLET (FP) PO SCH (10:00)
[2020-05-25] MEDS ORDERED: FUROSEMIDE 40 MG/4 ML INJECTABLE VIAL IVPUSH SCH (10:00)
== END 2020-05-24 12:33 | disposition short-term general hospital (02) | DRG 291 ==
LOC: JER 21:52 → JERBED 05-18 00:57 → J4W 05-18 02:59
PROVIDERS: ADMIT Internal Medicine; ATTEND Internal Medicine
DX: I11.0 Hypertensive heart disease with heart failure (principal); J96.01 Acute respiratory failure with hypoxia; E87.1 Hypo-osmolality and hyponatremia; I31.3 Pericardial effusion (noninflammatory); J98.11 Atelectasis; N17.9 Acute kidney failure, unspecified; E46 Unspecified protein-calorie malnutrition; I50.43 Acute on chronic combined systolic (congestive) and diastolic (congestive) heart failure; E03.9 Hypothyroidism, unspecified; I16.0 Hypertensive urgency; D64.9 Anemia, unspecified; F03.90 Unspecified dementia, unspecified severity, without behavioral disturbance, psychotic disturbance, mood disturbance, and anxiety; F41.8 Other specified anxiety disorders; K21.9 Gastro-esophageal reflux disease without esophagitis; I42.9 Cardiomyopathy, unspecified; E66.9 Obesity, unspecified; Z68.36 Body mass index [BMI] 36.0-36.9, adult; E78.5 Hyperlipidemia, unspecified; R74.0 Nonspecific elevation of levels of transaminase and lactic acid dehydrogenase [LDH]; E87.5 Hyperkalemia; E88.09 Other disorders of plasma-protein metabolism, not elsewhere classified; E11.65 Type 2 diabetes mellitus with hyperglycemia
CPT/HCPCS: 36415; 71045-TC-FY; 74177-TC; 76856-TC; 78452-TC; 80048; 80053; 81003; 82550; 82553; 82962; 83735; 83880; 84100; 84132; 84439; 84443; 84484; 85025; 85027; 85610; 85730; 86850; 86900; 86901; 93005; 93010; 93017; 93970-TC; 97116-GP; 97161-GP; 99285-25; A9502; J1644; J1756; J2785; U0003

== ENCOUNTER 2020-12-21 09:55 | Inpatient (IN) | payer OTHER ==
[2020-12-21] MEDS ORDERED: LEVOTHYROXINE NA 112 MCG TABLET (FP) PO ONE (12:19)
[2020-12-21] MEDS ORDERED: CARVEDILOL 6.25 MG TABLET (FP) PO ONE (12:19)
[2020-12-21] MEDS ORDERED: LOSARTAN POTASSIUM 50 MG TABLET PO ONE (12:20)
[2020-12-21] MEDS ORDERED: CARVEDILOL 3.125 MG TABLET (FP) ONE ×3 (12:44→21:31)
[2020-12-21] MEDS ORDERED: LOSARTAN POTASSIUM 50 MG TABLET ONE ×2 (12:44→13:37)
[2020-12-21 13:55] LABS: BASO % 0.3 % (0-2.0); EOS % 0.4 % (0-4.5); HEMATOCRIT 37.2 % (32.4-45.2); HEMOGLOBIN 12.1 GM/dL (10.7-15.3); LYMPH % 17.2 % (8-40); MCH 26.8 pg (25.7-33.7); MCHC 32.6 g/dl (32.0-36.0); MEAN CELL VOLUME 82.1 fl (80-96); MEAN PLT VOLUME 7.5 fl (7.5-11.1); MONO % 4.3 % (3.8-10.2); NEUT % 77.8 % (42.8-82.8); PLATELET COUNT 255 K/MM3 (134-434); RBC 4.53 M/mm3 (3.60-5.2); RDW 19.2 % (11.6-15.6); WHITE BLOOD COUNT 5.6 K/mm3 (4.0-10.0)
[2020-12-21 14:18] LABS: ALBUMIN 2.4 g/dl (3.4-5.0); MAGNESIUM 2.2 mg/dL (1.8-2.4)
[2020-12-21 14:22] LABS: LDH 289 U/L (84-246); SGOT/AST 25 U/L (15-37)
[2020-12-21 14:27] LABS: N-TERMINAL BNP 8788.9 pg/ml (5-450)
[2020-12-21 15:00] LABS: ALK PHOS 109 U/L (45-117); BILIRUBIN,TOTAL 0.4 mg/dL (0.2-1); BLOOD UREA NITROGEN 27.3 mg/dL (7-18); CALCIUM 8.4 mg/dL (8.5-10.1); CO2 25 mmol/L (21-32); SGPT/ALT 23 U/L (13-61); TOT PROT 7.4 g/dl (6.4-8.2)
[2020-12-21 15:12] LABS: ANION GAP 9 MMOL/L (8-16); CHLORIDE 111 mmol/L (98-107); POTASSIUM 4.6 mmol/L (3.5-5.1); SODIUM 145 mmol/L (136-145)
[2020-12-21] MEDS ORDERED: FUROSEMIDE 40 MG/4 ML INJECTABLE VIAL IVPUSH ONE (15:26)
[2020-12-21] MEDS ORDERED: CEFTRIAXONE 1,000 MG in DEXTROSE 5%-WATER - 50 ML IVPB ONE (15:27)
[2020-12-21] MEDS ORDERED: AZITHROMYCIN IVPB 500 MG in DEXTROSE 5%-WATER - 250 ML IVPB ONE (15:27)
[2020-12-21 15:28] LABS: GLUCOSE,RANDOM 43 mg/dL (74-106)
[2020-12-21] MEDS ORDERED: DEXTROSE 50%-WATER 25 GM/50 ML DISP.SYRIN ONE (15:31)
[2020-12-21] MEDS ORDERED: DEXTROSE 50%-WATER - 25 GM/50 ML VIAL IVPUSH ONE (15:35)
[2020-12-21] MEDS: INSULIN SLIDING SCALE (NOVOLOG) 1 VIAL SQ SCH ×2 (17:24→21:52)
[2020-12-21] MEDS ORDERED: FUROSEMIDE 40 MG/4 ML INJECTABLE VIAL ONE (17:34)
[2020-12-21] MEDS ORDERED: AZITHROMYCIN IVPB 500 MG/250 ML BAG IVPB ONE (17:34)
[2020-12-21] MEDS ORDERED: CEFTRIAXONE 1 GM/50 ML BAG ONE (17:34)
[2020-12-21] MEDS ORDERED: busPIRone HCL 5 MG TABLET ONE (21:31)
[2020-12-21] MEDS ORDERED: PANTOPRAZOLE 20 MG TABLET PO ONE (21:31)
[2020-12-21] MEDS ORDERED: DONEPEZIL HCL 5 MG TABLET (FP) ONE (21:32)
[2020-12-21] MEDS: DONEPEZIL HCL 5 MG TABLET (FP) PO SCH (21:46)
[2020-12-21] MEDS: busPIRone HCL 5 MG TABLET PO SCH (21:46)
[2020-12-21] MEDS: CARVEDILOL 6.25 MG TABLET (FP) PO SCH (21:47)
[2020-12-21] MEDS: PANTOPRAZOLE 20 MG TABLET PO SCH (21:47)
[2020-12-21] MEDS: traZODone HCL 50 MG TABLET (FP) PO SCH (21:47)
[2020-12-22] MEDS ORDERED: FUROSEMIDE 40 MG/4 ML INJECTABLE VIAL ONE (06:26)
[2020-12-22] MEDS ORDERED: busPIRone HCL 5 MG TABLET ONE ×2 (06:26→15:19)
[2020-12-22] MEDS: FUROSEMIDE 40 MG/4 ML INJECTABLE VIAL IVPUSH SCH ×2 (06:42→15:24)
[2020-12-22] MEDS: busPIRone HCL 5 MG TABLET PO SCH ×3 (06:42→21:06)
[2020-12-22] MEDS ORDERED: LOSARTAN POTASSIUM 50 MG TABLET ONE (07:42)
[2020-12-22] MEDS: LOSARTAN POTASSIUM 50 MG TABLET PO SCH (07:44)
[2020-12-22 07:52] LABS: BASO % 0.9 % (0-2.0); EOS % 2.1 % (0-4.5); HEMATOCRIT 34.2 % (32.4-45.2); HEMOGLOBIN 11.3 GM/dL (10.7-15.3); LYMPH % 20.3 % (8-40); MCH 26.8 pg (25.7-33.7); MCHC 33.2 g/dl (32.0-36.0); MEAN CELL VOLUME 80.8 fl (80-96); MEAN PLT VOLUME 7.5 fl (7.5-11.1); MONO % 7.3 % (3.8-10.2); NEUT % 69.4 % (42.8-82.8); PLATELET COUNT 282 K/MM3 (134-434); RBC 4.23 M/mm3 (3.60-5.2); WHITE BLOOD COUNT 5.9 K/mm3 (4.0-10.0)
[2020-12-22 08:01] LABS: CALCIUM 8.3 mg/dL (8.5-10.1)
[2020-12-22 08:02] LABS: ALBUMIN 2.2 g/dl (3.4-5.0); BLOOD UREA NITROGEN 24.8 mg/dL (7-18); MAGNESIUM 2.1 mg/dL (1.8-2.4)
[2020-12-22 08:05] LABS: CREATININE 1.2 mg/dL (0.55-1.3); PHOSPHOROUS 3.9 mg/dL (2.5-4.9)
[2020-12-22 08:06] LABS: BILIRUBIN,TOTAL 0.4 mg/dL (0.2-1)
[2020-12-22] MEDS ORDERED: FUROSEMIDE 40 MG/4 ML INJECTABLE VIAL IVPUSH SCH (10:00)
[2020-12-22] MEDS ORDERED: ASPIRIN 81 MG CHEWABLE TABLETS ONE (10:19)
[2020-12-22] MEDS ORDERED: FOLIC ACID 1 MG TABLET (FP) ONE (10:19)
[2020-12-22] MEDS ORDERED: CLOPIDOGREL BISULFATE 75 MG TABLET (FP) ONE (10:19)
[2020-12-22] MEDS ORDERED: ENOXAPARIN NA (PORCINE) 40 MG/0.4 ML DISP.SYRIN SQ ONE (10:20)
[2020-12-22] MEDS ORDERED: FERROUS SO4 325 MG TABLET (FP) ONE (10:20)
[2020-12-22] MEDS: CLOPIDOGREL BISULFATE 75 MG TABLET (FP) PO SCH (10:36)
[2020-12-22] MEDS: LEVOTHYROXINE NA 112 MCG TABLET (FP) PO SCH (10:36)
[2020-12-22] MEDS: FOLIC ACID 1 MG TABLET (FP) PO SCH (10:36)
[2020-12-22] MEDS: FERROUS SO4 325 MG TABLET (FP) PO SCH (10:36)
[2020-12-22] MEDS: ENOXAPARIN NA (PORCINE) 40 MG/0.4 ML DISP.SYRIN SQ SCH (10:36)
[2020-12-22] MEDS: CARVEDILOL 6.25 MG TABLET (FP) PO SCH ×2 (10:36→21:07)
[2020-12-22] MEDS: amLODIPine BESYLATE 10 MG TABLET (FP) PO SCH (10:36)
[2020-12-22] MEDS: ASPIRIN 81 MG CHEWABLE TABLETS PO SCH (10:36)
[2020-12-22] MEDS: INSULIN SLIDING SCALE (NOVOLOG) 1 VIAL SQ SCH ×4 (10:39→21:08)
[2020-12-22] MEDS ORDERED: FUROSEMIDE 40 MG TABLET (FP) ONE (15:19)
[2020-12-22] MEDS: DONEPEZIL HCL 5 MG TABLET (FP) PO SCH (21:06)
[2020-12-22] MEDS: traZODone HCL 50 MG TABLET (FP) PO SCH (21:06)
[2020-12-22] MEDS: PANTOPRAZOLE 20 MG TABLET PO SCH (21:07)
[2020-12-22] MEDS ORDERED: ATORVASTATIN CA 10 MG TABLET (FP) PO SCH (22:00)
[2020-12-23 00:52] VITALS: BMI 32.0
[2020-12-23] MEDS: FUROSEMIDE 40 MG/4 ML INJECTABLE VIAL IVPUSH SCH (06:01)
[2020-12-23] MEDS: LOSARTAN POTASSIUM 50 MG TABLET PO SCH (06:02)
[2020-12-23] MEDS: LEVOTHYROXINE NA 112 MCG TABLET (FP) PO SCH (06:02)
[2020-12-23] MEDS: busPIRone HCL 5 MG TABLET PO SCH ×3 (06:03→21:09)
[2020-12-23] MEDS: INSULIN SLIDING SCALE (NOVOLOG) 1 VIAL SQ SCH ×4 (06:06→21:19)
[2020-12-23] MEDS: FERROUS SO4 325 MG TABLET (FP) PO SCH (10:34)
[2020-12-23] MEDS: FOLIC ACID 1 MG TABLET (FP) PO SCH (10:34)
[2020-12-23] MEDS: ENOXAPARIN NA (PORCINE) 40 MG/0.4 ML DISP.SYRIN SQ SCH (10:34)
[2020-12-23] MEDS: ASPIRIN 81 MG CHEWABLE TABLETS PO SCH (10:34)
[2020-12-23] MEDS: CLOPIDOGREL BISULFATE 75 MG TABLET (FP) PO SCH (10:34)
[2020-12-23] MEDS: amLODIPine BESYLATE 10 MG TABLET (FP) PO SCH (10:34)
[2020-12-23] MEDS: CARVEDILOL 6.25 MG TABLET (FP) PO SCH ×2 (10:34→21:10)
[2020-12-23 13:11] LABS: BLOOD UREA NITROGEN 24.3 mg/dL (7-18); CALCIUM 8.9 mg/dL (8.5-10.1)
[2020-12-23 13:15] LABS: CREATININE 1.2 mg/dL (0.55-1.3)
[2020-12-23] MEDS: PANTOPRAZOLE 20 MG TABLET PO SCH (21:09)
[2020-12-23] MEDS: traZODone HCL 50 MG TABLET (FP) PO SCH (21:10)
[2020-12-23] MEDS: DONEPEZIL HCL 5 MG TABLET (FP) PO SCH (21:10)
[2020-12-23] MEDS: ATORVASTATIN CA 10 MG TABLET (FP) PO SCH (21:10)
[2020-12-24] MEDS: busPIRone HCL 5 MG TABLET PO SCH ×3 (06:05→22:08)
[2020-12-24] MEDS: LOSARTAN POTASSIUM 50 MG TABLET PO SCH (06:06)
[2020-12-24] MEDS: LEVOTHYROXINE NA 112 MCG TABLET (FP) PO SCH (06:06)
[2020-12-24] MEDS: INSULIN SLIDING SCALE (NOVOLOG) 1 VIAL SQ SCH ×4 (06:10→22:09)
[2020-12-24] MEDS: ENOXAPARIN NA (PORCINE) 40 MG/0.4 ML DISP.SYRIN SQ SCH (10:00)
[2020-12-24] MEDS: amLODIPine BESYLATE 10 MG TABLET (FP) PO SCH (10:01)
[2020-12-24] MEDS: FERROUS SO4 325 MG TABLET (FP) PO SCH (10:01)
[2020-12-24] MEDS: FOLIC ACID 1 MG TABLET (FP) PO SCH (10:01)
[2020-12-24] MEDS: CARVEDILOL 6.25 MG TABLET (FP) PO SCH ×2 (10:01→22:08)
[2020-12-24] MEDS: FUROSEMIDE 20 MG TABLET (FP) PO SCH (10:01)
[2020-12-24] MEDS: CLOPIDOGREL BISULFATE 75 MG TABLET (FP) PO SCH (10:01)
[2020-12-24] MEDS: ASPIRIN 81 MG CHEWABLE TABLETS PO SCH (10:01)
[2020-12-24] MEDS ORDERED: hydrALAZINE HCL 25 MG TABLET (FP) PO ONE ×2 (12:10→14:10)
[2020-12-24 14:40] LABS: POTASSIUM 4.3 mmol/L (3.5-5.1)
[2020-12-24 14:41] LABS: CALCIUM 8.4 mg/dL (8.5-10.1)
[2020-12-24 14:42] LABS: BLOOD UREA NITROGEN 25.4 mg/dL (7-18)
[2020-12-24 14:45] LABS: CREATININE 1.4 mg/dL (0.55-1.3)
[2020-12-24] MEDS: traZODone HCL 50 MG TABLET (FP) PO SCH (22:07)
[2020-12-24] MEDS: DONEPEZIL HCL 5 MG TABLET (FP) PO SCH (22:08)
[2020-12-24] MEDS: ATORVASTATIN CA 10 MG TABLET (FP) PO SCH (22:08)
[2020-12-24] MEDS: PANTOPRAZOLE 20 MG TABLET PO SCH (22:08)
[2020-12-24] MEDS: hydrALAZINE HCL 50 MG TABLET (FP) PO SCH (22:08)
[2020-12-25] MEDS: hydrALAZINE HCL 50 MG TABLET (FP) PO SCH ×2 (06:02→14:21)
[2020-12-25] MEDS: busPIRone HCL 5 MG TABLET PO SCH ×2 (06:04→14:21)
[2020-12-25] MEDS: LEVOTHYROXINE NA 112 MCG TABLET (FP) PO SCH (06:04)
[2020-12-25] MEDS: INSULIN SLIDING SCALE (NOVOLOG) 1 VIAL SQ SCH ×2 (06:08→11:02)
[2020-12-25] MEDS: LOSARTAN POTASSIUM 50 MG TABLET PO SCH (06:08)
[2020-12-25] MEDS: FOLIC ACID 1 MG TABLET (FP) PO SCH (10:55)
[2020-12-25] MEDS: ASPIRIN 81 MG CHEWABLE TABLETS PO SCH (10:55)
[2020-12-25] MEDS: CARVEDILOL 6.25 MG TABLET (FP) PO SCH (10:55)
[2020-12-25] MEDS: FUROSEMIDE 20 MG TABLET (FP) PO SCH (10:55)
[2020-12-25] MEDS: FERROUS SO4 325 MG TABLET (FP) PO SCH (10:55)
[2020-12-25] MEDS: CLOPIDOGREL BISULFATE 75 MG TABLET (FP) PO SCH (10:56)
[2020-12-25] MEDS: ENOXAPARIN NA (PORCINE) 40 MG/0.4 ML DISP.SYRIN SQ SCH (10:56)
[2020-12-25] MEDS: amLODIPine BESYLATE 10 MG TABLET (FP) PO SCH (10:57)
[2020-12-25 11:04] VITALS: BP 160/84; TEMP 98.4
[2020-12-25 11:05] VITALS: PULSE 79
== END 2020-12-25 15:27 | disposition home or self-care (01) | DRG 637 ==
LOC: JER 09:55 → JERBED 15:23 → J4W 12-22 18:43 → J5WEST-2 12-23 15:52 → J5S 12-23 18:40
DX: E11.649 Type 2 diabetes mellitus with hypoglycemia without coma (principal); G93.41 Metabolic encephalopathy; I50.43 Acute on chronic combined systolic (congestive) and diastolic (congestive) heart failure; E78.5 Hyperlipidemia, unspecified; E03.9 Hypothyroidism, unspecified; G47.00 Insomnia, unspecified; F41.8 Other specified anxiety disorders; Z86.73 Personal history of transient ischemic attack (TIA), and cerebral infarction without residual deficits; I11.0 Hypertensive heart disease with heart failure; E11.42 Type 2 diabetes mellitus with diabetic polyneuropathy; I27.20 Pulmonary hypertension, unspecified; R41.82 Altered mental status, unspecified; E66.9 Obesity, unspecified; Z68.31 Body mass index [BMI] 31.0-31.9, adult; I25.10 Atherosclerotic heart disease of native coronary artery without angina pectoris; F03.90 Unspecified dementia, unspecified severity, without behavioral disturbance, psychotic disturbance, mood disturbance, and anxiety; I35.1 Nonrheumatic aortic (valve) insufficiency; K21.9 Gastro-esophageal reflux disease without esophagitis; D64.9 Anemia, unspecified; Z86.19 Personal history of other infectious and parasitic diseases
CPT/HCPCS: 36415; 70450-TC; 71045-TC-FY; 72125-TC; 80048; 80053; 82550; 82728; 82962; 83036; 83615; 83735; 83880; 84100; 84443; 84484; 85025; 85379; 85730; 86140; 93005; 93010; 97116-GP; 97161-GP; 99285-25; C9803; U0003

== ENCOUNTER 2021-04-08 14:51 | Inpatient (IN) | payer OTHER ==
[2021-04-08 16:32] LABS: BASO % 0.8 % (0-2.0); EOS % 0.7 % (0-4.5); HEMOGLOBIN 10.3 GM/dL (10.7-15.3); MCHC 33.1 g/dl (32.0-36.0); MEAN CELL VOLUME 84.5 fl (80-96); MEAN PLT VOLUME 7.6 fl (7.5-11.1); MONO % 5.8 % (3.8-10.2); NEUT % 73.7 % (42.8-82.8); PLATELET COUNT 269 K/MM3 (134-434); RBC 3.67 M/mm3 (3.60-5.2); RDW 17.3 % (11.6-15.6); WHITE BLOOD COUNT 6.3 K/mm3 (4.0-10.0)
[2021-04-08 16:35] LABS: INR 1.03 (0.83-1.09); PROTHROMBIN TIME (PATIENT) 12.5 SEC (9.7-13.0)
[2021-04-08 17:00] LABS: ALBUMIN 2.6 g/dl (3.4-5.0); BLOOD UREA NITROGEN 20.5 mg/dL (7-18); CALCIUM 8.2 mg/dL (8.5-10.1); MAGNESIUM 2.3 mg/dL (1.8-2.4)
[2021-04-08 17:03] LABS: CREATININE 1.3 mg/dL (0.55-1.3)
[2021-04-08 17:04] LABS: PHOSPHOROUS 4.1 mg/dL (2.5-4.9)
[2021-04-08 17:05] LABS: BILIRUBIN,TOTAL 0.3 mg/dL (0.2-1); TOT PROT 7.2 g/dl (6.4-8.2)
[2021-04-08 17:45] LABS: EPI CELLS >36 /uL (0-25.1); HYALINE CASTS 4 /uL (0-3.1); PH,URINE 6.5 (5.0-8.0); URINE APPEARANCE CLEAR; URINE BACTERIA 41 /uL (0-1359); URINE BILIRUBIN NEGATIVE (NEGATIVE); URINE COLOR YELLOW; URINE GLUCOSE (UA) NEGATIVE (NEGATIVE); URINE KETONE NEGATIVE (NEGATIVE); URINE LEUK ESTERASE 1+ (NEGATIVE); URINE NITRITE NEGATIVE (NEGATIVE); URINE PROTEIN 1+ (NEGATIVE); URINE RBC 13 /uL (0-23.9); URINE WBC 83 /uL (0-25.8)
[2021-04-08 18:05] LABS: YEAST FEW (NEGATIVE)
[2021-04-08 23:34] LABS: BASO % 0.6 % (0-2.0); EOS % 1.1 % (0-4.5); HEMATOCRIT 32.4 % (32.4-45.2); HEMOGLOBIN 10.7 GM/dL (10.7-15.3); LYMPH % 24.3 % (8-40); MCH 28.1 pg (25.7-33.7); MCHC 33.1 g/dl (32.0-36.0); MEAN PLT VOLUME 7.3 fl (7.5-11.1); MONO % 6.8 % (3.8-10.2); NEUT % 67.2 % (42.8-82.8); PLATELET COUNT 296 K/MM3 (134-434); RBC 3.81 M/mm3 (3.60-5.2); RDW 17.4 % (11.6-15.6); WHITE BLOOD COUNT 7.1 K/mm3 (4.0-10.0)
[2021-04-09] MEDS: HYDROCORTISONE ACETATE 25 MG/SUPP.RECT PR SCH ×2 (00:29→21:23)
[2021-04-09] MEDS: PANTOPRAZOLE SODIUM 40 MG VIAL IVPUSH SCH ×3 (00:30→21:24)
[2021-04-09 05:42] VITALS: BMI 31.2
[2021-04-09] MEDS: TORSEMIDE 20 MG TABLET (FP) PO SCH ×2 (06:35→14:58)
[2021-04-09] MEDS: LEVOTHYROXINE NA 125 MCG TABLET (FP) PO SCH (06:35)
[2021-04-09] MEDS: busPIRone HCL 10 MG TABLET (FP) PO SCH ×3 (06:35→21:24)
[2021-04-09] MEDS: INSULIN SLIDING SCALE (NOVOLOG) 1 VIAL SQ SCH ×4 (06:39→21:31)
[2021-04-09 09:41] LABS: HEMATOCRIT 32.1 % (32.4-45.2); HEMOGLOBIN 10.8 GM/dL (10.7-15.3); MCH 28.3 pg (25.7-33.7); MCHC 33.7 g/dl (32.0-36.0); MEAN CELL VOLUME 83.8 fl (80-96); MEAN PLT VOLUME 7.3 fl (7.5-11.1); PLATELET COUNT 293 K/MM3 (134-434); RBC 3.84 M/mm3 (3.60-5.2); RDW 16.9 % (11.6-15.6); WHITE BLOOD COUNT 6.7 K/mm3 (4.0-10.0)
[2021-04-09] MEDS ORDERED: PATIENT'S OWN MEDICATION (NON-FORMULARY) (Losartan Potassium [Losartan Potassium] 100 MG T PO SCH (10:00)
[2021-04-09] MEDS ORDERED: CLOPIDOGREL BISULFATE 75 MG TABLET (FP) PO SCH (10:00)
[2021-04-09] MEDS ORDERED: ASPIRIN 81 MG CHEWABLE TABLETS PO SCH (10:00)
[2021-04-09 10:19] LABS: CALCIUM 8.4 mg/dL (8.5-10.1)
[2021-04-09 10:20] LABS: BLOOD UREA NITROGEN 13.6 mg/dL (7-18); MAGNESIUM 2.1 mg/dL (1.8-2.4)
[2021-04-09 10:21] LABS: ALBUMIN 2.7 g/dl (3.4-5.0)
[2021-04-09 10:22] LABS: PHOSPHOROUS 3.6 mg/dL (2.5-4.9)
[2021-04-09 10:23] LABS: TOT PROT 7.4 g/dl (6.4-8.2)
[2021-04-09 10:25] LABS: BILIRUBIN,TOTAL 0.5 mg/dL (0.2-1)
[2021-04-09] MEDS ORDERED: PT OWN MED DRAWER 7, Y5N ONE ×2 (10:32→14:47)
[2021-04-09] MEDS: hydrALAZINE HCL 50 MG TABLET (FP) PO SCH ×2 (10:38→21:23)
[2021-04-09] MEDS: LOSARTAN POTASSIUM 50 MG TABLET PO SCH (10:38)
[2021-04-09] MEDS: amLODIPine BESYLATE 10 MG TABLET (FP) PO SCH (10:38)
[2021-04-09] MEDS: ATORVASTATIN CA 40 MG TABLET (FP) PO SCH (21:23)
[2021-04-09] MEDS: DONEPEZIL HCL 5 MG TABLET (FP) PO SCH (21:23)
[2021-04-09] MEDS: traZODone HCL 50 MG TABLET (FP) PO SCH (21:24)
[2021-04-10] MEDS: TORSEMIDE 20 MG TABLET (FP) PO SCH ×2 (06:03→14:22)
[2021-04-10] MEDS: busPIRone HCL 10 MG TABLET (FP) PO SCH ×3 (06:03→21:08)
[2021-04-10] MEDS: LEVOTHYROXINE NA 125 MCG TABLET (FP) PO SCH (06:03)
[2021-04-10] MEDS: INSULIN SLIDING SCALE (NOVOLOG) 1 VIAL SQ SCH ×4 (06:04→21:12)
[2021-04-10] MEDS ORDERED: PT OWN MED DRAWER 7, Y5N ONE ×3 (06:21→21:02)
[2021-04-10 09:23] LABS: EOS % 1.9 % (0-4.5); HEMATOCRIT 29.8 % (32.4-45.2); HEMOGLOBIN 9.9 GM/dL (10.7-15.3); LYMPH % 21.8 % (8-40); MCH 28.3 pg (25.7-33.7); MCHC 33.3 g/dl (32.0-36.0); MEAN CELL VOLUME 84.9 fl (80-96); MEAN PLT VOLUME 7.5 fl (7.5-11.1); MONO % 6.7 % (3.8-10.2); NEUT % 68.6 % (42.8-82.8); PLATELET COUNT 270 K/MM3 (134-434); RBC 3.52 M/mm3 (3.60-5.2); RDW 17.1 % (11.6-15.6); WHITE BLOOD COUNT 4.9 K/mm3 (4.0-10.0)
[2021-04-10] MEDS: LOSARTAN POTASSIUM 50 MG TABLET PO SCH (09:41)
[2021-04-10] MEDS: ASPIRIN COATED 81 MG TABLET.EC PO SCH (09:41)
[2021-04-10] MEDS: hydrALAZINE HCL 50 MG TABLET (FP) PO SCH ×2 (09:41→21:08)
[2021-04-10] MEDS: PANTOPRAZOLE SODIUM 40 MG VIAL IVPUSH SCH ×2 (09:42→21:10)
[2021-04-10] MEDS: amLODIPine BESYLATE 10 MG TABLET (FP) PO SCH (09:42)
[2021-04-10 09:47] LABS: ALBUMIN 2.3 g/dl (3.4-5.0); BILIRUBIN,TOTAL 1.1 mg/dL (0.2-1); BLOOD UREA NITROGEN 12.3 mg/dL (7-18); CALCIUM 8.1 mg/dL (8.5-10.1); CREATININE 1.1 mg/dL (0.55-1.3); MAGNESIUM 1.9 mg/dL (1.8-2.4); PHOSPHOROUS 4.6 mg/dL (2.5-4.9); TOT PROT 6.4 g/dl (6.4-8.2)
[2021-04-10] MEDS: ATORVASTATIN CA 40 MG TABLET (FP) PO SCH (21:08)
[2021-04-10] MEDS: DONEPEZIL HCL 5 MG TABLET (FP) PO SCH (21:08)
[2021-04-10] MEDS: HYDROCORTISONE ACETATE 25 MG/SUPP.RECT PR SCH (21:08)
[2021-04-10] MEDS: traZODone HCL 50 MG TABLET (FP) PO SCH (21:08)
[2021-04-11] MEDS ORDERED: PT OWN MED DRAWER 7, Y5N ONE ×3 (06:02→15:04)
[2021-04-11] MEDS: busPIRone HCL 10 MG TABLET (FP) PO SCH ×3 (06:21→21:47)
[2021-04-11] MEDS: LEVOTHYROXINE NA 125 MCG TABLET (FP) PO SCH (06:21)
[2021-04-11] MEDS: TORSEMIDE 20 MG TABLET (FP) PO SCH ×2 (06:21→15:22)
[2021-04-11] MEDS: INSULIN SLIDING SCALE (NOVOLOG) 1 VIAL SQ SCH ×4 (06:23→21:47)
[2021-04-11] MEDS ORDERED: INSULIN (NOVOLOG) ASPART 100 UNITS/ML 10ML VIAL ONE (06:37)
[2021-04-11 08:55] LABS: BASO % 0.4 % (0-2.0); EOS % 1.3 % (0-4.5); HEMATOCRIT 28.9 % (32.4-45.2); HEMOGLOBIN 9.6 GM/dL (10.7-15.3); LYMPH % 15.5 % (8-40); MCH 28.1 pg (25.7-33.7); MCHC 33.3 g/dl (32.0-36.0); MEAN CELL VOLUME 84.2 fl (80-96); MEAN PLT VOLUME 7.3 fl (7.5-11.1); MONO % 6.8 % (3.8-10.2); PLATELET COUNT 257 K/MM3 (134-434); RBC 3.43 M/mm3 (3.60-5.2); RDW 16.6 % (11.6-15.6); WHITE BLOOD COUNT 5.6 K/mm3 (4.0-10.0)
[2021-04-11 09:13] LABS: ALBUMIN 2.2 g/dl (3.4-5.0); BLOOD UREA NITROGEN 11.3 mg/dL (7-18); MAGNESIUM 1.8 mg/dL (1.8-2.4)
[2021-04-11 09:16] LABS: CREATININE 1.2 mg/dL (0.55-1.3); PHOSPHOROUS 4.5 mg/dL (2.5-4.9)
[2021-04-11 09:17] LABS: BILIRUBIN,TOTAL 0.5 mg/dL (0.2-1); TOT PROT 6.3 g/dl (6.4-8.2)
[2021-04-11] MEDS: ASPIRIN COATED 81 MG TABLET.EC PO SCH (09:53)
[2021-04-11] MEDS: LOSARTAN POTASSIUM 50 MG TABLET PO SCH (09:53)
[2021-04-11] MEDS: hydrALAZINE HCL 50 MG TABLET (FP) PO SCH ×2 (09:54→21:47)
[2021-04-11] MEDS: PANTOPRAZOLE SODIUM 40 MG VIAL IVPUSH SCH ×2 (09:54→21:47)
[2021-04-11] MEDS: amLODIPine BESYLATE 10 MG TABLET (FP) PO SCH (09:54)
[2021-04-11] MEDS: SODIUM PHOSPHATE/NA BIPHOS 133 ML ENEMA RC SCH (15:09)
[2021-04-11] MEDS: ATORVASTATIN CA 40 MG TABLET (FP) PO SCH (21:47)
[2021-04-11] MEDS: traZODone HCL 50 MG TABLET (FP) PO SCH (21:47)
[2021-04-11] MEDS: DONEPEZIL HCL 5 MG TABLET (FP) PO SCH (21:47)
[2021-04-11] MEDS: HYDROCORTISONE ACETATE 25 MG/SUPP.RECT PR SCH (21:47)
[2021-04-12] MEDS: SODIUM PHOSPHATE/NA BIPHOS 133 ML ENEMA RC SCH ×2 (04:12→04:29)
[2021-04-12] MEDS: TORSEMIDE 20 MG TABLET (FP) PO SCH ×2 (06:12→15:59)
[2021-04-12] MEDS: INSULIN SLIDING SCALE (NOVOLOG) 1 VIAL SQ SCH ×4 (06:12→22:01)
[2021-04-12] MEDS: busPIRone HCL 10 MG TABLET (FP) PO SCH ×3 (06:12→21:43)
[2021-04-12] MEDS: LEVOTHYROXINE NA 125 MCG TABLET (FP) PO SCH (06:12)
[2021-04-12] MEDS ORDERED: KETAMINE HCL 200 MG/20 ML VIAL ONE (07:00)
[2021-04-12] MEDS: ASPIRIN COATED 81 MG TABLET.EC PO SCH (10:38)
[2021-04-12] MEDS: LOSARTAN POTASSIUM 50 MG TABLET PO SCH (10:38)
[2021-04-12] MEDS: amLODIPine BESYLATE 10 MG TABLET (FP) PO SCH (10:38)
[2021-04-12] MEDS: PANTOPRAZOLE SODIUM 40 MG VIAL IVPUSH SCH ×2 (10:38→21:43)
[2021-04-12] MEDS: hydrALAZINE HCL 50 MG TABLET (FP) PO SCH ×2 (10:38→21:42)
[2021-04-12 13:04] LABS: BASO % 0.4 % (0-2.0); EOS % 0.9 % (0-4.5); HEMATOCRIT 30.2 % (32.4-45.2); HEMOGLOBIN 10.1 GM/dL (10.7-15.3); LYMPH % 10.3 % (8-40); MCH 28.3 pg (25.7-33.7); MCHC 33.4 g/dl (32.0-36.0); MEAN CELL VOLUME 84.7 fl (80-96); MEAN PLT VOLUME 7.4 fl (7.5-11.1); MONO % 5.7 % (3.8-10.2); NEUT % 82.7 % (42.8-82.8); PLATELET COUNT 272 K/MM3 (134-434); RBC 3.57 M/mm3 (3.60-5.2); RDW 16.9 % (11.6-15.6); WHITE BLOOD COUNT 8.4 K/mm3 (4.0-10.0)
[2021-04-12 13:22] LABS: ALBUMIN 2.5 g/dl (3.4-5.0); CALCIUM 8.2 mg/dL (8.5-10.1); MAGNESIUM 1.8 mg/dL (1.8-2.4)
[2021-04-12 13:23] LABS: BLOOD UREA NITROGEN 14.2 mg/dL (7-18)
[2021-04-12 13:25] LABS: CREATININE 1.3 mg/dL (0.55-1.3); PHOSPHOROUS 4.7 mg/dL (2.5-4.9)
[2021-04-12 13:27] LABS: BILIRUBIN,TOTAL 0.5 mg/dL (0.2-1); TOT PROT 6.6 g/dl (6.4-8.2)
[2021-04-12] MEDS ORDERED: POTASSIUM CHLORIDE TABS 20 MEQ TABLET.ER (FP) PO ONE (14:30)
[2021-04-12] MEDS ORDERED: PT OWN MED DRAWER 7, Y5N ONE ×2 (14:57→21:39)
[2021-04-12] MEDS: FERROUS SO4 325 MG TABLET (FP) PO SCH (17:22)
[2021-04-12] MEDS ORDERED: TORSEMIDE 10 MG TABLET PO ONE (18:29)
[2021-04-12] MEDS: CARVEDILOL 12.5 MG TABLET (FP) PO SCH (21:42)
[2021-04-12] MEDS ORDERED: traZODone HCL 50 MG TABLET (FP) PO SCH (22:00)
[2021-04-12] MEDS ORDERED: ATORVASTATIN CA 40 MG TABLET (FP) PO SCH (22:00)
[2021-04-12] MEDS ORDERED: HYDROCORTISONE ACETATE 25 MG/SUPP.RECT PR SCH (22:00)
[2021-04-12] MEDS ORDERED: DONEPEZIL HCL 5 MG TABLET (FP) PO SCH (22:00)
[2021-04-12] MEDS ORDERED: DOCUSATE SODIUM 100 MG CAPSULE (FP) PO SCH (22:00)
[2021-04-13] MEDS: busPIRone HCL 10 MG TABLET (FP) PO SCH ×2 (06:36→13:54)
[2021-04-13] MEDS: TORSEMIDE 20 MG TABLET (FP) PO SCH ×2 (06:36→13:57)
[2021-04-13] MEDS: INSULIN SLIDING SCALE (NOVOLOG) 1 VIAL SQ SCH ×3 (06:36→17:18)
[2021-04-13] MEDS ORDERED: LEVOTHYROXINE NA 125 MCG TABLET (FP) PO SCH (07:00)
[2021-04-13] MEDS: LOSARTAN POTASSIUM 50 MG TABLET PO SCH (09:50)
[2021-04-13] MEDS: ASPIRIN COATED 81 MG TABLET.EC PO SCH (09:50)
[2021-04-13] MEDS: FERROUS SO4 325 MG TABLET (FP) PO SCH ×2 (09:51→12:15)
[2021-04-13] MEDS: CARVEDILOL 12.5 MG TABLET (FP) PO SCH (09:51)
[2021-04-13] MEDS: amLODIPine BESYLATE 10 MG TABLET (FP) PO SCH (09:51)
[2021-04-13] MEDS: hydrALAZINE HCL 50 MG TABLET (FP) PO SCH (09:52)
[2021-04-13] MEDS: PANTOPRAZOLE SODIUM 40 MG VIAL IVPUSH SCH (13:41)
[2021-04-13 14:38] VITALS: BP 135/54; PULSE 60; TEMP 97.7
== END 2021-04-13 16:32 | disposition home health service (06) | DRG 378 ==
LOC: JER 14:51 → JERBED 21:06 → J5S 04-09 00:07
PROVIDERS: ADMIT Internal Medicine; ATTEND Internal Medicine
PROC: 0DJD8ZZ Inspection of Lower Intestinal Tract, Via Natural or Artificial Opening Endoscopic (ICD-10-PCS; principal; 2021-04-12 07:30)
DX: K57.91 Diverticulosis of intestine, part unspecified, without perforation or abscess with bleeding (principal); I50.22 Chronic systolic (congestive) heart failure; J98.11 Atelectasis; K92.1 Melena; I10 Essential (primary) hypertension; E11.9 Type 2 diabetes mellitus without complications; I25.10 Atherosclerotic heart disease of native coronary artery without angina pectoris; E03.9 Hypothyroidism, unspecified; D64.9 Anemia, unspecified; K43.9 Ventral hernia without obstruction or gangrene; F03.90 Unspecified dementia, unspecified severity, without behavioral disturbance, psychotic disturbance, mood disturbance, and anxiety; E78.5 Hyperlipidemia, unspecified; Z95.5 Presence of coronary angioplasty implant and graft; K21.9 Gastro-esophageal reflux disease without esophagitis
CPT/HCPCS: 36415; 71045-TC-FY; 74174-TC; 80053; 81003; 82272; 82550; 82728; 82962; 83605; 83735; 84100; 84484; 85025; 85027; 85610; 86850; 86900; 86901; 93005; 93010; 97116-GP; 97161-GP; 99285-25; C9803; Q9967; U0003; U0005

== ENCOUNTER 2021-06-17 15:00 | Inpatient (IN) | payer OTHER ==
[2021-06-17 15:48] LABS: BASO % 0.8 % (0-2.0); EOS % 1.7 % (0-4.5); HEMATOCRIT 31.6 % (32.4-45.2); HEMOGLOBIN 10.5 GM/dL (10.7-15.3); LYMPH % 11.6 % (8-40); MCH 27.9 pg (25.7-33.7); MCHC 33.1 g/dl (32.0-36.0); MEAN CELL VOLUME 84.2 fl (80-96); MEAN PLT VOLUME 7.3 fl (7.5-11.1); NEUT % 79.9 % (42.8-82.8); PLATELET COUNT 273 10^3/uL (134-434); RBC 3.75 M/mm3 (3.60-5.2); RDW 16.6 % (11.6-15.6); WHITE BLOOD COUNT 6.1 K/mm3 (4.0-10.0)
[2021-06-17 15:53] LABS: INR 1.11 (0.83-1.09); PROTHROMBIN TIME (PATIENT) 13.6 SEC (9.7-13.0)
[2021-06-17 15:56] LABS: ACTIVATED PTT 36.1 SECONDS (25.2-36.5)
[2021-06-17 16:51] LABS: ALBUMIN 2.6 g/dl (3.4-5.0); ALK PHOS 96 U/L (45-117); ANION GAP 6 MMOL/L (8-16); BILIRUBIN,TOTAL 0.3 mg/dL (0.2-1); BLOOD UREA NITROGEN 15.1 mg/dL (7-18); CALCIUM 7.9 mg/dL (8.5-10.1); CHLORIDE 105 mmol/L (98-107); CO2 26 mmol/L (21-32); CREATININE 1.1 mg/dL (0.55-1.3); GLUCOSE,RANDOM 182 mg/dL (74-106); N-TERMINAL BNP 6887.9 pg/ml (5-450); SGOT/AST 24 U/L (15-37); SGPT/ALT 24 U/L (13-61); SODIUM 137 mmol/L (136-145); TOT PROT 7.3 g/dl (6.4-8.2)
[2021-06-17] MEDS ORDERED: FUROSEMIDE 40 MG/4 ML INJECTABLE VIAL IVPUSH ONE (17:29)
[2021-06-17] MEDS ORDERED: NITROGLYCERIN 2% OINTMENT - 1GM PACKET TD ONE ×2 (17:29→17:46)
[2021-06-17] MEDS ORDERED: FUROSEMIDE 40 MG/4 ML INJECTABLE VIAL ONE (17:47)
[2021-06-17] MEDS ORDERED: DONEPEZIL HCL 5 MG TABLET (FP) PO SCH (22:00)
[2021-06-17] MEDS ORDERED: traZODone HCL 100 MG TABLET (FP) PO SCH (22:00)
[2021-06-18] MEDS: busPIRone HCL 10 MG TABLET (FP) PO SCH ×3 (05:26→21:01)
[2021-06-18] MEDS: hydrALAZINE HCL 50 MG TABLET (FP) PO SCH ×3 (05:27→21:00)
[2021-06-18] MEDS: LEVOTHYROXINE NA 125 MCG TABLET (FP) PO SCH (06:30)
[2021-06-18 07:12] LABS: BASO % 0.4 % (0-2.0); EOS % 1.4 % (0-4.5); HEMATOCRIT 26.8 % (32.4-45.2); HEMOGLOBIN 9.1 GM/dL (10.7-15.3); LYMPH % 10.4 % (8-40); MCH 28.4 pg (25.7-33.7); MCHC 33.9 g/dl (32.0-36.0); MEAN CELL VOLUME 83.8 fl (80-96); MEAN PLT VOLUME 7.2 fl (7.5-11.1); MONO % 7.1 % (3.8-10.2); NEUT % 80.7 % (42.8-82.8); PLATELET COUNT 233 10^3/uL (134-434); RDW 16.4 % (11.6-15.6); WHITE BLOOD COUNT 5.9 K/mm3 (4.0-10.0)
[2021-06-18 07:29] LABS: ALBUMIN 2.5 g/dl (3.4-5.0); BLOOD UREA NITROGEN 17.1 mg/dL (7-18); MAGNESIUM 2.1 mg/dL (1.8-2.4)
[2021-06-18 07:32] LABS: CREATININE 1.3 mg/dL (0.55-1.3)
[2021-06-18 07:33] LABS: PHOSPHOROUS 4.9 mg/dL (2.5-4.9)
[2021-06-18 07:34] LABS: BILIRUBIN,TOTAL 0.3 mg/dL (0.2-1); TOT PROT 6.6 g/dl (6.4-8.2)
[2021-06-18] MEDS ORDERED: amLODIPine BESYLATE 10 MG TABLET (FP) PO SCH (10:00)
[2021-06-18] MEDS ORDERED: FUROSEMIDE 40 MG/4 ML INJECTABLE VIAL IVPUSH SCH (10:00)
[2021-06-18] MEDS ORDERED: PATIENT'S OWN MEDICATION (NON-FORMULARY) (Losartan Potassium [Losartan Potassium] 100 MG T PO SCH (10:00)
[2021-06-18] MEDS: ASPIRIN 81 MG CHEWABLE TABLETS PO SCH (11:09)
[2021-06-18] MEDS: LOSARTAN POTASSIUM 50 MG TABLET PO SCH (11:09)
[2021-06-18] MEDS: ENOXAPARIN NA (PORCINE) 40 MG/0.4 ML DISP.SYRIN SQ SCH (11:09)
[2021-06-18] MEDS: CARVEDILOL 12.5 MG TABLET (FP) PO SCH ×2 (11:09→21:00)
[2021-06-18] MEDS: traZODone HCL 50 MG TABLET (FP) PO SCH (21:01)
[2021-06-19] MEDS: FUROSEMIDE 40 MG/4 ML INJECTABLE VIAL IVPUSH SCH ×2 (05:29→14:28)
[2021-06-19] MEDS: busPIRone HCL 10 MG TABLET (FP) PO SCH ×4 (05:30→21:00)
[2021-06-19] MEDS: hydrALAZINE HCL 50 MG TABLET (FP) PO SCH ×4 (05:30→21:00)
[2021-06-19] MEDS: LEVOTHYROXINE NA 125 MCG TABLET (FP) PO SCH (06:42)
[2021-06-19] MEDS: ATORVASTATIN CA 40 MG TABLET (FP) PO SCH (06:42)
[2021-06-19] MEDS: INSULIN SLIDING SCALE (NOVOLOG) 1 VIAL SQ SCH ×4 (06:56→21:01)
[2021-06-19] MEDS ORDERED: PATIENT'S OWN MEDICATION (NON-FORMULARY) (Omeprazole/Sodium Bicarbonate [Omeprazole-Bicarb PO SCH (08:00)
[2021-06-19 08:04] LABS: BASO % 1.3 % (0-2.0); EOS % 1.6 % (0-4.5); HEMATOCRIT 28.5 % (32.4-45.2); HEMOGLOBIN 9.7 GM/dL (10.7-15.3); LYMPH % 15.3 % (8-40); MCH 28.4 pg (25.7-33.7); MEAN CELL VOLUME 83.7 fl (80-96); MEAN PLT VOLUME 7.2 fl (7.5-11.1); MONO % 8.1 % (3.8-10.2); NEUT % 73.7 % (42.8-82.8); PLATELET COUNT 236 10^3/uL (134-434); RBC 3.41 M/mm3 (3.60-5.2); RDW 16.5 % (11.6-15.6); WHITE BLOOD COUNT 4.9 K/mm3 (4.0-10.0)
[2021-06-19 08:13] LABS: CALCIUM 7.9 mg/dL (8.5-10.1)
[2021-06-19 08:14] LABS: ALBUMIN 2.6 g/dl (3.4-5.0); BLOOD UREA NITROGEN 22.2 mg/dL (7-18); MAGNESIUM 2.2 mg/dL (1.8-2.4)
[2021-06-19 08:17] LABS: CREATININE 1.3 mg/dL (0.55-1.3); PHOSPHOROUS 4.7 mg/dL (2.5-4.9)
[2021-06-19 08:18] LABS: TOT PROT 7.2 g/dl (6.4-8.2)
[2021-06-19 08:21] LABS: BILIRUBIN,TOTAL 0.4 mg/dL (0.2-1)
[2021-06-19] MEDS ORDERED: PANTOPRAZOLE 40 MG TABLET PO SCH (10:00)
[2021-06-19] MEDS: ASPIRIN 81 MG CHEWABLE TABLETS PO SCH (10:00)
[2021-06-19] MEDS: LOSARTAN POTASSIUM 50 MG TABLET PO SCH (10:01)
[2021-06-19] MEDS: CARVEDILOL 12.5 MG TABLET (FP) PO SCH ×2 (10:01→21:00)
[2021-06-19] MEDS: ENOXAPARIN NA (PORCINE) 40 MG/0.4 ML DISP.SYRIN SQ SCH (10:01)
[2021-06-19] MEDS ORDERED: INSULIN (NOVOLOG) ASPART 100 UNITS/ML 10ML VIAL ONE (12:31)
[2021-06-19 19:55] VITALS: BMI 32.5
[2021-06-19] MEDS: traZODone HCL 50 MG TABLET (FP) PO SCH (21:00)
[2021-06-20] MEDS: MELATONIN 5 MG TABLETS PO PRN ×2 (00:05→21:18)
[2021-06-20] MEDS: FUROSEMIDE 40 MG/4 ML INJECTABLE VIAL IVPUSH SCH ×2 (06:02→14:28)
[2021-06-20] MEDS: hydrALAZINE HCL 50 MG TABLET (FP) PO SCH ×3 (06:02→21:18)
[2021-06-20] MEDS: ATORVASTATIN CA 40 MG TABLET (FP) PO SCH (06:03)
[2021-06-20] MEDS: busPIRone HCL 10 MG TABLET (FP) PO SCH ×3 (06:04→21:18)
[2021-06-20] MEDS: LEVOTHYROXINE NA 125 MCG TABLET (FP) PO SCH (06:04)
[2021-06-20] MEDS: INSULIN SLIDING SCALE (NOVOLOG) 1 VIAL SQ SCH ×4 (06:13→21:19)
[2021-06-20 08:27] LABS: BASO % 0.9 % (0-2.0); EOS % 1.9 % (0-4.5); HEMATOCRIT 29.1 % (32.4-45.2); HEMOGLOBIN 9.8 GM/dL (10.7-15.3); LYMPH % 15.1 % (8-40); MCH 28.4 pg (25.7-33.7); MCHC 33.8 g/dl (32.0-36.0); MEAN PLT VOLUME 7.5 fl (7.5-11.1); MONO % 6.6 % (3.8-10.2); NEUT % 75.5 % (42.8-82.8); PLATELET COUNT 253 10^3/uL (134-434); RBC 3.46 M/mm3 (3.60-5.2); RDW 16.3 % (11.6-15.6); WHITE BLOOD COUNT 4.7 K/mm3 (4.0-10.0)
[2021-06-20 09:00] LABS: ALBUMIN 2.6 g/dl (3.4-5.0); CALCIUM 7.9 mg/dL (8.5-10.1)
[2021-06-20 09:01] LABS: BLOOD UREA NITROGEN 20.1 mg/dL (7-18); MAGNESIUM 2.2 mg/dL (1.8-2.4)
[2021-06-20] MEDS: ENOXAPARIN NA (PORCINE) 40 MG/0.4 ML DISP.SYRIN SQ SCH (09:02)
[2021-06-20] MEDS: CARVEDILOL 12.5 MG TABLET (FP) PO SCH ×2 (09:02→21:18)
[2021-06-20] MEDS: LOSARTAN POTASSIUM 50 MG TABLET PO SCH (09:02)
[2021-06-20] MEDS: ASPIRIN 81 MG CHEWABLE TABLETS PO SCH (09:02)
[2021-06-20] MEDS: amLODIPine BESYLATE 10 MG TABLET (FP) PO SCH (09:02)
[2021-06-20 09:04] LABS: CREATININE 1.2 mg/dL (0.55-1.3); PHOSPHOROUS 4.4 mg/dL (2.5-4.9)
[2021-06-20 09:05] LABS: BILIRUBIN,TOTAL 0.7 mg/dL (0.2-1); TOT PROT 7.1 g/dl (6.4-8.2)
[2021-06-20] MEDS: traZODone HCL 50 MG TABLET (FP) PO SCH (21:18)
[2021-06-21] MEDS: FUROSEMIDE 40 MG/4 ML INJECTABLE VIAL IVPUSH SCH (06:42)
[2021-06-21] MEDS: hydrALAZINE HCL 50 MG TABLET (FP) PO SCH ×3 (06:43→21:43)
[2021-06-21] MEDS: busPIRone HCL 10 MG TABLET (FP) PO SCH ×3 (06:43→21:43)
[2021-06-21] MEDS: LEVOTHYROXINE NA 125 MCG TABLET (FP) PO SCH (06:43)
[2021-06-21] MEDS: ATORVASTATIN CA 40 MG TABLET (FP) PO SCH (06:43)
[2021-06-21] MEDS: INSULIN SLIDING SCALE (NOVOLOG) 1 VIAL SQ SCH ×4 (06:44→22:31)
[2021-06-21 07:53] LABS: BASO % 1.3 % (0-2.0); EOS % 1.6 % (0-4.5); HEMATOCRIT 28.4 % (32.4-45.2); HEMOGLOBIN 9.6 GM/dL (10.7-15.3); LYMPH % 17.2 % (8-40); MCHC 33.7 g/dl (32.0-36.0); MEAN PLT VOLUME 7.3 fl (7.5-11.1); MONO % 6.6 % (3.8-10.2); NEUT % 73.3 % (42.8-82.8); PLATELET COUNT 250 10^3/uL (134-434); RBC 3.42 M/mm3 (3.60-5.2); WHITE BLOOD COUNT 4.8 K/mm3 (4.0-10.0)
[2021-06-21 08:18] LABS: ALBUMIN 2.7 g/dl (3.4-5.0); BLOOD UREA NITROGEN 20.6 mg/dL (7-18)
[2021-06-21 08:19] LABS: MAGNESIUM 2.3 mg/dL (1.8-2.4)
[2021-06-21 08:21] LABS: CREATININE 1.2 mg/dL (0.55-1.3)
[2021-06-21 08:22] LABS: PHOSPHOROUS 4.4 mg/dL (2.5-4.9)
[2021-06-21 08:23] LABS: BILIRUBIN,TOTAL 0.3 mg/dL (0.2-1); TOT PROT 7.2 g/dl (6.4-8.2)
[2021-06-21] MEDS: LOSARTAN POTASSIUM 50 MG TABLET PO SCH (11:04)
[2021-06-21] MEDS: CARVEDILOL 12.5 MG TABLET (FP) PO SCH ×2 (11:04→21:43)
[2021-06-21] MEDS: amLODIPine BESYLATE 10 MG TABLET (FP) PO SCH (11:04)
[2021-06-21] MEDS: ASPIRIN 81 MG CHEWABLE TABLETS PO SCH (11:04)
[2021-06-21] MEDS: ENOXAPARIN NA (PORCINE) 40 MG/0.4 ML DISP.SYRIN SQ SCH (11:05)
[2021-06-21] MEDS: FUROSEMIDE 40 MG TABLET (FP) PO SCH (14:35)
[2021-06-21] MEDS: MELATONIN 5 MG TABLETS PO PRN (21:43)
[2021-06-21] MEDS: traZODone HCL 50 MG TABLET (FP) PO SCH (21:43)
[2021-06-22] MEDS: hydrALAZINE HCL 50 MG TABLET (FP) PO SCH ×2 (05:33→14:52)
[2021-06-22] MEDS: FUROSEMIDE 40 MG TABLET (FP) PO SCH ×2 (05:33→14:52)
[2021-06-22] MEDS: busPIRone HCL 10 MG TABLET (FP) PO SCH ×2 (05:33→14:52)
[2021-06-22] MEDS: LEVOTHYROXINE NA 125 MCG TABLET (FP) PO SCH (06:01)
[2021-06-22] MEDS: ATORVASTATIN CA 40 MG TABLET (FP) PO SCH (06:01)
[2021-06-22] MEDS: INSULIN SLIDING SCALE (NOVOLOG) 1 VIAL SQ SCH ×2 (06:10→13:03)
[2021-06-22] MEDS: amLODIPine BESYLATE 10 MG TABLET (FP) PO SCH (09:54)
[2021-06-22] MEDS: CARVEDILOL 12.5 MG TABLET (FP) PO SCH (09:54)
[2021-06-22] MEDS: LOSARTAN POTASSIUM 50 MG TABLET PO SCH (09:54)
[2021-06-22] MEDS: ASPIRIN 81 MG CHEWABLE TABLETS PO SCH (09:54)
[2021-06-22] MEDS: ENOXAPARIN NA (PORCINE) 40 MG/0.4 ML DISP.SYRIN SQ SCH (09:54)
[2021-06-22 15:19] VITALS: BP 140/70; PULSE 68; TEMP 98.4
== END 2021-06-22 18:12 | disposition home or self-care (01) | DRG 291 ==
LOC: JER 15:00 → JERBED 17:48 → J4W 06-18 02:35
PROVIDERS: ADMIT Internal Medicine; ATTEND Internal Medicine
DX: I11.0 Hypertensive heart disease with heart failure (principal); J81.0 Acute pulmonary edema; I25.10 Atherosclerotic heart disease of native coronary artery without angina pectoris; I50.23 Acute on chronic systolic (congestive) heart failure; D64.9 Anemia, unspecified; E11.9 Type 2 diabetes mellitus without complications; B19.20 Unspecified viral hepatitis C without hepatic coma; G62.9 Polyneuropathy, unspecified; I10 Essential (primary) hypertension; E78.5 Hyperlipidemia, unspecified; K76.0 Fatty (change of) liver, not elsewhere classified; E03.9 Hypothyroidism, unspecified; I27.20 Pulmonary hypertension, unspecified; F03.90 Unspecified dementia, unspecified severity, without behavioral disturbance, psychotic disturbance, mood disturbance, and anxiety; I16.0 Hypertensive urgency; Z98.61 Coronary angioplasty status
CPT/HCPCS: 36415; 71045-TC-FY; 80053; 82550; 82553; 82962; 83690; 83735; 83880; 84100; 84443; 84484; 85025; 85610; 85730; 86850; 86900; 86901; 93005; 93010; 93971-TC; 94660; 94761; 97116-GP; 97161-GP; 99285-25; C9803; U0003; U0005

== ENCOUNTER 2021-06-27 14:22 | Inpatient (IN) | payer OTHER ==
[2021-06-27] MEDS ORDERED: ALBUTEROL SO4 2.5/IPRATROPIUM 0.5 INH SOL 3 ML VIAL.NEB. NEB ONE ×2 (15:21→16:08)
[2021-06-27 15:24] VITALS: BMI 28.3
[2021-06-27] MEDS ORDERED: methylPREDNISolone NA SUCC 40 MG/1 ML VIAL IVPUSH ONE (15:29)
[2021-06-27] MEDS ORDERED: FUROSEMIDE 40 MG/4 ML INJECTABLE VIAL IVPUSH ONE ×2 (15:32→21:50)
[2021-06-27] MEDS ORDERED: methylPREDNISolone NA SUCC 125 MG/2 ML VIAL IVPUSH ONE (15:35)
[2021-06-27 16:22] LABS: BASO % 1.1 % (0-2.0); EOS % 1.3 % (0-4.5); HEMATOCRIT 30.1 % (32.4-45.2); HEMOGLOBIN 9.9 GM/dL (10.7-15.3); LYMPH % 9.9 % (8-40); MCH 27.3 pg (25.7-33.7); MCHC 32.7 g/dl (32.0-36.0); MEAN CELL VOLUME 83.5 fl (80-96); MEAN PLT VOLUME 7.2 fl (7.5-11.1); MONO % 8.7 % (3.8-10.2); PLATELET COUNT 250 10^3/uL (134-434); RBC 3.61 M/mm3 (3.60-5.2); RDW 17.8 % (11.6-15.6); WHITE BLOOD COUNT 7.1 K/mm3 (4.0-10.0)
[2021-06-27 16:30] LABS: INR 1.08 (0.83-1.09); PROTHROMBIN TIME (PATIENT) 13.3 SEC (9.7-13.0)
[2021-06-27 16:33] LABS: ACTIVATED PTT 34.3 SECONDS (25.2-36.5)
[2021-06-27 16:42] LABS: CHLORIDE 101 mmol/L (98-107); SODIUM 132 mmol/L (136-145)
[2021-06-27 16:44] LABS: CALCIUM 7.7 mg/dL (8.5-10.1)
[2021-06-27 16:45] LABS: ALBUMIN 2.6 g/dl (3.4-5.0); ANION GAP 7 MMOL/L (8-16); BLOOD UREA NITROGEN 22.1 mg/dL (7-18); CO2 25 mmol/L (21-32); GLUCOSE,RANDOM 159 mg/dL (74-106); MAGNESIUM 2.3 mg/dL (1.8-2.4)
[2021-06-27 16:48] LABS: CREATININE 1.2 mg/dL (0.55-1.3); SGOT/AST 47 U/L (15-37); SGPT/ALT 28 U/L (13-61)
[2021-06-27] MEDS ORDERED: methylPREDNISolone NA SUCC 40 MG/1 ML VIAL ONE (16:48)
[2021-06-27] MEDS ORDERED: FUROSEMIDE 40 MG/4 ML INJECTABLE VIAL ONE (16:48)
[2021-06-27 16:50] LABS: BILIRUBIN,TOTAL 0.4 mg/dL (0.2-1); TOT PROT 7.5 g/dl (6.4-8.2)
[2021-06-27 16:51] LABS: ALK PHOS 82 U/L (45-117); N-TERMINAL BNP 8102.5 pg/ml (5-450)
[2021-06-27 17:19] LABS: CALCIUM 7.9 mg/dL (8.5-10.1)
[2021-06-27 17:20] LABS: BLOOD UREA NITROGEN 21.4 mg/dL (7-18)
[2021-06-27 17:23] LABS: CREATININE 1.3 mg/dL (0.55-1.3)
[2021-06-27] MEDS ORDERED: methylPREDNISolone NA SUCC 125 MG/2 ML VIAL ONE (17:40)
[2021-06-27] MEDS ORDERED: SODIUM CHLORIDE 0.9% 500 ML INFUS.BAG IV ONE (17:47)
[2021-06-27 21:21] LABS: IRON SERUM 36 ug/dL (50-175); TOTAL IRON BINDING CAPACITY 296 ug/dL (250-450)
[2021-06-27] MEDS ORDERED: ACETAMINOPHEN 325 MG TABLET (FP) PO PRN (21:42)
[2021-06-27] MEDS ORDERED: AZITHROMYCIN 250 MG TABLET PO ONE (21:56)
[2021-06-27] MEDS ORDERED: DOCUSATE SODIUM 100 MG CAPSULE (FP) PO SCH (22:00)
[2021-06-27] MEDS ORDERED: INSULIN (NOVOLOG) ASPART 100 UNITS/ML 10ML VIAL SQ SCH (22:00)
[2021-06-27] MEDS ORDERED: IRON SUCROSE INJECTION 200 MG in SODIUM CHLORIDE 100 ML IVPB ONE (22:30)
[2021-06-27] MEDS: BUDESONIDE/FORMETEROL FUMARATE 160/4.5 mcg INHALER IH SCH (23:15)
[2021-06-27] MEDS: HEPARIN NA (PORCINE) 5,000 UNITS/ML 1ML VIAL SQ SCH (23:16)
[2021-06-27] MEDS: POLYETHYLENE GLYCOL (HEALTHYLAX) 3350 17 GM PACKET PO SCH (23:16)
[2021-06-27] MEDS: INSULIN SLIDING SCALE (NOVOLOG) 1 VIAL SQ SCH (23:31)
[2021-06-27 23:34] LABS: ARTERIAL BLOOD GAS BASE EXCESS -2.8 mmol/L (-2-2); ARTERIAL BLOOD GAS PO2 83.7 mmHg (80-100); ARTERIAL BLOOD GAS pH 7.366 (7.350-7.450)
[2021-06-27] MEDS: LEVALBUTEROL HCL 0.31 MG/3 ML VIAL.NEB IH SCH (23:34)
[2021-06-28] MEDS: AZITHROMYCIN 500 MG TABLET PO SCH ×2 (00:43→09:58)
[2021-06-28] MEDS: BUDESONIDE/FORMETEROL FUMARATE 160/4.5 mcg INHALER IH SCH ×3 (00:56→21:40)
[2021-06-28] MEDS ORDERED: AZITHROMYCIN 500 MG TABLET PO ONE (01:00)
[2021-06-28] MEDS: traZODone HCL 50 MG TABLET (FP) PO SCH ×2 (01:49→09:58)
[2021-06-28] MEDS: methylPREDNISolone NA SUCC 40 MG/1 ML VIAL IVPUSH SCH ×3 (01:49→18:04)
[2021-06-28] MEDS: HEPARIN NA (PORCINE) 5,000 UNITS/ML 1ML VIAL SQ SCH ×3 (06:20→21:37)
[2021-06-28] MEDS: INSULIN SLIDING SCALE (NOVOLOG) 1 VIAL SQ SCH ×4 (06:25→21:39)
[2021-06-28] MEDS: LEVALBUTEROL HCL 0.31 MG/3 ML VIAL.NEB IH SCH ×3 (08:45→20:40)
[2021-06-28 09:41] LABS: HEMATOCRIT 29.1 % (32.4-45.2); HEMOGLOBIN 9.7 GM/dL (10.7-15.3); MCHC 33.4 g/dl (32.0-36.0); MEAN CELL VOLUME 83.9 fl (80-96); MEAN PLT VOLUME 7.6 fl (7.5-11.1); PLATELET COUNT 255 10^3/uL (134-434); RBC 3.47 M/mm3 (3.60-5.2); RDW 16.9 % (11.6-15.6); WHITE BLOOD COUNT 4.5 K/mm3 (4.0-10.0)
[2021-06-28 09:55] LABS: ALBUMIN 2.5 g/dl (3.4-5.0); BLOOD UREA NITROGEN 25.2 mg/dL (7-18); CALCIUM 8.2 mg/dL (8.5-10.1)
[2021-06-28 09:58] LABS: CREATININE 1.2 mg/dL (0.55-1.3); MAGNESIUM 2.4 mg/dL (1.8-2.4)
[2021-06-28] MEDS: busPIRone HCL 5 MG TABLET PO SCH ×2 (09:58→21:37)
[2021-06-28] MEDS: POLYETHYLENE GLYCOL (HEALTHYLAX) 3350 17 GM PACKET PO SCH ×2 (09:58→21:35)
[2021-06-28 09:59] LABS: PHOSPHOROUS 4.9 mg/dL (2.5-4.9)
[2021-06-28 10:00] LABS: BILIRUBIN,TOTAL 0.3 mg/dL (0.2-1); TOT PROT 7.1 g/dl (6.4-8.2)
[2021-06-28] MEDS ORDERED: IRON SUCROSE INJECTION 200 MG in SODIUM CHLORIDE 100 ML IVPB ONE (10:00)
[2021-06-28] MEDS ORDERED: IRON SUCROSE INJECTION 500 MG in SODIUM CHLORIDE 225 ML IVPB ONE (10:00)
[2021-06-28] MEDS: CARVEDILOL 12.5 MG TABLET (FP) PO SCH ×2 (10:55→21:37)
[2021-06-28] MEDS: FUROSEMIDE 40 MG/4 ML INJECTABLE VIAL IVPUSH SCH (10:55)
[2021-06-28] MEDS ORDERED: FUROSEMIDE 40 MG/4 ML INJECTABLE VIAL IVPUSH ONE (13:57)
[2021-06-28] MEDS ORDERED: traZODone HCL 50 MG TABLET (FP) PO ONE (21:14)
[2021-06-28] MEDS ORDERED: ATORVASTATIN CA 40 MG TABLET (FP) PO SCH (22:00)
[2021-06-29] MEDS: methylPREDNISolone NA SUCC 40 MG/1 ML VIAL IVPUSH SCH ×3 (01:15→17:32)
[2021-06-29] MEDS: HEPARIN NA (PORCINE) 5,000 UNITS/ML 1ML VIAL SQ SCH ×3 (06:17→21:13)
[2021-06-29] MEDS: INSULIN SLIDING SCALE (NOVOLOG) 1 VIAL SQ SCH ×4 (06:21→21:13)
[2021-06-29] MEDS ORDERED: LEVOTHYROXINE NA 125 MCG TABLET (FP) PO SCH (07:00)
[2021-06-29] MEDS: LEVALBUTEROL HCL 0.31 MG/3 ML VIAL.NEB IH SCH ×3 (08:36→20:15)
[2021-06-29] MEDS ORDERED: PT OWN MED DRAWER 7, Y5N ONE (09:19)
[2021-06-29] MEDS: POLYETHYLENE GLYCOL (HEALTHYLAX) 3350 17 GM PACKET PO SCH ×2 (09:21→21:12)
[2021-06-29] MEDS: CARVEDILOL 12.5 MG TABLET (FP) PO SCH ×2 (09:21→21:12)
[2021-06-29] MEDS: FUROSEMIDE 40 MG/4 ML INJECTABLE VIAL IVPUSH SCH ×2 (09:21→14:34)
[2021-06-29] MEDS: busPIRone HCL 5 MG TABLET PO SCH ×2 (09:21→21:12)
[2021-06-29] MEDS: AZITHROMYCIN 500 MG TABLET PO SCH (09:21)
[2021-06-29] MEDS: BUDESONIDE/FORMETEROL FUMARATE 160/4.5 mcg INHALER IH SCH ×2 (09:23→22:15)
[2021-06-29 09:36] LABS: HEMATOCRIT 30.2 % (32.4-45.2); HEMOGLOBIN 10.1 GM/dL (10.7-15.3); MCHC 33.4 g/dl (32.0-36.0); MEAN CELL VOLUME 83.8 fl (80-96); MEAN PLT VOLUME 7.6 fl (7.5-11.1); PLATELET COUNT 302 10^3/uL (134-434); RDW 16.8 % (11.6-15.6); WHITE BLOOD COUNT 8.9 K/mm3 (4.0-10.0)
[2021-06-29 09:59] LABS: BILIRUBIN,TOTAL 0.2 mg/dL (0.2-1); TOT PROT 7.6 g/dl (6.4-8.2)
[2021-06-29] MEDS ORDERED: FOLIC ACID 1 MG TABLET (FP) PO SCH (10:00)
[2021-06-29] MEDS ORDERED: CLOPIDOGREL BISULFATE 75 MG TABLET (FP) PO SCH (10:00)
[2021-06-29 11:25] LABS: CALCIUM 8.4 mg/dL (8.5-10.1)
[2021-06-29 11:26] LABS: ALBUMIN 2.6 g/dl (3.4-5.0); BLOOD UREA NITROGEN 37.7 mg/dL (7-18); MAGNESIUM 2.5 mg/dL (1.8-2.4)
[2021-06-29 11:29] LABS: CREATININE 1.4 mg/dL (0.55-1.3); PHOSPHOROUS 4.4 mg/dL (2.5-4.9)
[2021-06-29] MEDS ORDERED: INSULIN (LEVEMIR) 100 UNITS/ML UNITS SQ SCH (12:15)
[2021-06-29 13:05] LABS: EPI CELLS 15 /uL (0-25.1); HYALINE CASTS 0 /uL (0-3.1); URINE APPEARANCE CLEAR; URINE BACTERIA 613 /uL (0-1359); URINE BILIRUBIN NEGATIVE (NEGATIVE); URINE COLOR YELLOW; URINE GLUCOSE (UA) 1+ (NEGATIVE); URINE KETONE NEGATIVE (NEGATIVE); URINE LEUK ESTERASE NEGATIVE (NEGATIVE); URINE NITRITE NEGATIVE (NEGATIVE); URINE PROTEIN 2+ (NEGATIVE); URINE RBC 4 /uL (0-23.9); URINE UROBILINOGEN 0.2 mg/dL (0.2-1.0); URINE WBC 5 /uL (0-25.8)
[2021-06-29] MEDS ORDERED: ACETAMINOPHEN 325 MG TABLET (FP) PO PRN (14:13)
[2021-06-29] MEDS ORDERED: IRON SUCROSE INJECTION 200 MG in SODIUM CHLORIDE 100 ML IVPB ONE (14:13)
[2021-06-29] MEDS ORDERED: FUROSEMIDE 40 MG/4 ML INJECTABLE VIAL IVPUSH ONE (15:00)
[2021-06-29] MEDS: DOXYCYCLINE HYCLATE 100 MG CAPSULE PO SCH (17:32)
[2021-06-29] MEDS: traZODone HCL 50 MG TABLET (FP) PO SCH (21:12)
[2021-06-29] MEDS: ATORVASTATIN CA 40 MG TABLET (FP) PO SCH (21:12)
[2021-06-29] MEDS: INSULIN (LEVEMIR) 100 UNITS/ML UNITS SQ SCH (21:13)
[2021-06-29] MEDS ORDERED: traZODone HCL 50 MG TABLET (FP) PO SCH (22:00)
[2021-06-29] MEDS ORDERED: FUROSEMIDE 40 MG/4 ML INJECTABLE VIAL IVPUSH SCH (22:00)
[2021-06-30] MEDS: methylPREDNISolone NA SUCC 40 MG/1 ML VIAL IVPUSH SCH ×3 (01:10→17:09)
[2021-06-30] MEDS: HEPARIN NA (PORCINE) 5,000 UNITS/ML 1ML VIAL SQ SCH ×3 (06:12→21:42)
[2021-06-30] MEDS: INSULIN (LEVEMIR) 100 UNITS/ML UNITS SQ SCH ×2 (06:12→21:44)
[2021-06-30] MEDS: FUROSEMIDE 40 MG/4 ML INJECTABLE VIAL IVPUSH SCH ×2 (06:12→13:43)
[2021-06-30] MEDS: INSULIN SLIDING SCALE (NOVOLOG) 1 VIAL SQ SCH ×4 (06:13→21:43)
[2021-06-30] MEDS: LEVOTHYROXINE NA 125 MCG TABLET (FP) PO SCH (06:13)
[2021-06-30] MEDS: LEVALBUTEROL HCL 0.31 MG/3 ML VIAL.NEB IH SCH ×3 (08:05→20:39)
[2021-06-30 08:11] LABS: HEMATOCRIT 31.5 % (32.4-45.2); HEMOGLOBIN 10.6 GM/dL (10.7-15.3); MCH 27.5 pg (25.7-33.7); MCHC 33.5 g/dl (32.0-36.0); MEAN CELL VOLUME 82.3 fl (80-96); MEAN PLT VOLUME 7.3 fl (7.5-11.1); PLATELET COUNT 325 10^3/uL (134-434); RBC 3.83 M/mm3 (3.60-5.2); WHITE BLOOD COUNT 9.5 K/mm3 (4.0-10.0)
[2021-06-30 08:30] LABS: CALCIUM 8.6 mg/dL (8.5-10.1)
[2021-06-30 08:31] LABS: ALBUMIN 2.9 g/dl (3.4-5.0); BLOOD UREA NITROGEN 47.6 mg/dL (7-18); MAGNESIUM 2.4 mg/dL (1.8-2.4)
[2021-06-30 08:34] LABS: CREATININE 1.4 mg/dL (0.55-1.3)
[2021-06-30 08:36] LABS: BILIRUBIN,TOTAL 0.3 mg/dL (0.2-1)
[2021-06-30 09:22] LABS: ANISOCYTOSIS 1+; PLATELET ESTIMATE NORMAL
[2021-06-30] MEDS: DOXYCYCLINE HYCLATE 100 MG CAPSULE PO SCH ×2 (09:52→17:09)
[2021-06-30] MEDS: busPIRone HCL 5 MG TABLET PO SCH ×2 (09:52→21:43)
[2021-06-30] MEDS: POLYETHYLENE GLYCOL (HEALTHYLAX) 3350 17 GM PACKET PO SCH ×2 (09:53→21:42)
[2021-06-30] MEDS: FOLIC ACID 1 MG TABLET (FP) PO SCH (09:53)
[2021-06-30] MEDS: CLOPIDOGREL BISULFATE 75 MG TABLET (FP) PO SCH (09:53)
[2021-06-30] MEDS: CARVEDILOL 12.5 MG TABLET (FP) PO SCH ×2 (09:53→21:43)
[2021-06-30] MEDS: BUDESONIDE/FORMETEROL FUMARATE 160/4.5 mcg INHALER IH SCH ×2 (09:54→21:49)
[2021-06-30] MEDS ORDERED: INSULIN (NOVOLOG) ASPART 100 UNITS/ML 10ML VIAL ONE ×2 (11:22→16:42)
[2021-06-30] MEDS ORDERED: FUROSEMIDE 40 MG/4 ML INJECTABLE VIAL IVPUSH ONE (14:41)
[2021-06-30] MEDS: traZODone HCL 50 MG TABLET (FP) PO SCH (21:43)
[2021-06-30] MEDS: ATORVASTATIN CA 40 MG TABLET (FP) PO SCH (21:43)
[2021-07-01] MEDS: methylPREDNISolone NA SUCC 40 MG/1 ML VIAL IVPUSH SCH ×4 (01:08→20:00)
[2021-07-01] MEDS: INSULIN (LEVEMIR) 100 UNITS/ML UNITS SQ SCH ×2 (06:01→21:45)
[2021-07-01] MEDS: HEPARIN NA (PORCINE) 5,000 UNITS/ML 1ML VIAL SQ SCH ×3 (06:02→21:38)
[2021-07-01] MEDS: LEVOTHYROXINE NA 125 MCG TABLET (FP) PO SCH (06:02)
[2021-07-01] MEDS: FUROSEMIDE 40 MG/4 ML INJECTABLE VIAL IVPUSH SCH (06:02)
[2021-07-01] MEDS: INSULIN SLIDING SCALE (NOVOLOG) 1 VIAL SQ SCH ×4 (06:03→21:45)
[2021-07-01 07:18] LABS: HEMATOCRIT 32.1 % (32.4-45.2); HEMOGLOBIN 10.9 GM/dL (10.7-15.3); MCHC 33.9 g/dl (32.0-36.0); MEAN CELL VOLUME 82.6 fl (80-96); MEAN PLT VOLUME 7.2 fl (7.5-11.1); PLATELET COUNT 360 10^3/uL (134-434); RBC 3.89 M/mm3 (3.60-5.2); RDW 16.5 % (11.6-15.6)
[2021-07-01 07:21] LABS: ALBUMIN 2.6 g/dl (3.4-5.0)
[2021-07-01 07:22] LABS: CALCIUM 8.2 mg/dL (8.5-10.1); MAGNESIUM 2.3 mg/dL (1.8-2.4)
[2021-07-01 07:25] LABS: CREATININE 1.6 mg/dL (0.55-1.3); PHOSPHOROUS 4.1 mg/dL (2.5-4.9)
[2021-07-01 07:26] LABS: BILIRUBIN,TOTAL 0.4 mg/dL (0.2-1); TOT PROT 7.5 g/dl (6.4-8.2)
[2021-07-01] MEDS: LEVALBUTEROL HCL 0.31 MG/3 ML VIAL.NEB IH SCH ×3 (07:40→21:45)
[2021-07-01 09:22] LABS: ANISOCYTOSIS 2+; MACROCYTOSIS 0; PLATELET ESTIMATE NORMAL
[2021-07-01] MEDS: busPIRone HCL 5 MG TABLET PO SCH ×2 (10:14→21:38)
[2021-07-01] MEDS: DOXYCYCLINE HYCLATE 100 MG CAPSULE PO SCH ×2 (10:14→17:14)
[2021-07-01] MEDS: CLOPIDOGREL BISULFATE 75 MG TABLET (FP) PO SCH (10:14)
[2021-07-01] MEDS: CARVEDILOL 12.5 MG TABLET (FP) PO SCH ×2 (10:14→21:38)
[2021-07-01] MEDS: FOLIC ACID 1 MG TABLET (FP) PO SCH (10:14)
[2021-07-01] MEDS: POLYETHYLENE GLYCOL (HEALTHYLAX) 3350 17 GM PACKET PO SCH ×2 (10:15→21:38)
[2021-07-01] MEDS: BUDESONIDE/FORMETEROL FUMARATE 160/4.5 mcg INHALER IH SCH ×2 (10:15→21:47)
[2021-07-01] MEDS: traZODone HCL 50 MG TABLET (FP) PO SCH (21:38)
[2021-07-01] MEDS: ATORVASTATIN CA 40 MG TABLET (FP) PO SCH (21:38)
[2021-07-02] MEDS: methylPREDNISolone NA SUCC 40 MG/1 ML VIAL IVPUSH SCH ×4 (02:12→22:21)
[2021-07-02] MEDS: HEPARIN NA (PORCINE) 5,000 UNITS/ML 1ML VIAL SQ SCH ×3 (06:04→22:23)
[2021-07-02] MEDS: LEVOTHYROXINE NA 125 MCG TABLET (FP) PO SCH (06:04)
[2021-07-02] MEDS: INSULIN SLIDING SCALE (NOVOLOG) 1 VIAL SQ SCH ×4 (06:04→22:24)
[2021-07-02] MEDS: INSULIN (LEVEMIR) 100 UNITS/ML UNITS SQ SCH ×2 (06:04→22:23)
[2021-07-02 07:31] LABS: BASO % 0.3 % (0-2.0); HEMATOCRIT 32.7 % (32.4-45.2); HEMOGLOBIN 10.9 GM/dL (10.7-15.3); LYMPH % 8.9 % (8-40); MCH 27.5 pg (25.7-33.7); MCHC 33.5 g/dl (32.0-36.0); MEAN CELL VOLUME 82.2 fl (80-96); MEAN PLT VOLUME 7.1 fl (7.5-11.1); MONO % 1.8 % (3.8-10.2); PLATELET COUNT 326 10^3/uL (134-434); RBC 3.98 M/mm3 (3.60-5.2); RDW 16.5 % (11.6-15.6); WHITE BLOOD COUNT 6.1 K/mm3 (4.0-10.0)
[2021-07-02] MEDS: LEVALBUTEROL HCL 0.31 MG/3 ML VIAL.NEB IH SCH ×3 (07:45→21:09)
[2021-07-02 08:04] LABS: BLOOD UREA NITROGEN 49.4 mg/dL (7-18); CALCIUM 8.4 mg/dL (8.5-10.1); MAGNESIUM 2.6 mg/dL (1.8-2.4)
[2021-07-02 08:05] LABS: ALBUMIN 2.4 g/dl (3.4-5.0)
[2021-07-02 08:08] LABS: CREATININE 1.3 mg/dL (0.55-1.3); PHOSPHOROUS 4.1 mg/dL (2.5-4.9)
[2021-07-02 08:09] LABS: BILIRUBIN,TOTAL 0.5 mg/dL (0.2-1); TOT PROT 6.6 g/dl (6.4-8.2)
[2021-07-02] MEDS: DOXYCYCLINE HYCLATE 100 MG CAPSULE PO SCH ×2 (09:32→17:44)
[2021-07-02] MEDS: amLODIPine BESYLATE 5 MG TABLET (FP) PO SCH (09:32)
[2021-07-02] MEDS: CARVEDILOL 12.5 MG TABLET (FP) PO SCH ×2 (09:32→22:22)
[2021-07-02] MEDS: busPIRone HCL 5 MG TABLET PO SCH ×2 (09:33→22:22)
[2021-07-02] MEDS: POLYETHYLENE GLYCOL (HEALTHYLAX) 3350 17 GM PACKET PO SCH ×2 (09:33→22:32)
[2021-07-02] MEDS: CLOPIDOGREL BISULFATE 75 MG TABLET (FP) PO SCH (09:33)
[2021-07-02] MEDS: FOLIC ACID 1 MG TABLET (FP) PO SCH (09:33)
[2021-07-02] MEDS: BUDESONIDE/FORMETEROL FUMARATE 160/4.5 mcg INHALER IH SCH ×2 (09:34→22:32)
[2021-07-02] MEDS ORDERED: FUROSEMIDE 40 MG/4 ML INJECTABLE VIAL IVPUSH SCH (10:00)
[2021-07-02] MEDS ORDERED: INSULIN (NOVOLOG) ASPART 100 UNITS/ML 10ML VIAL ONE (21:55)
[2021-07-02] MEDS: ATORVASTATIN CA 40 MG TABLET (FP) PO SCH (22:21)
[2021-07-02] MEDS: traZODone HCL 50 MG TABLET (FP) PO SCH (22:22)
[2021-07-03] MEDS: methylPREDNISolone NA SUCC 40 MG/1 ML VIAL IVPUSH SCH ×4 (03:27→22:21)
[2021-07-03] MEDS: HEPARIN NA (PORCINE) 5,000 UNITS/ML 1ML VIAL SQ SCH ×3 (06:10→22:22)
[2021-07-03] MEDS: LEVOTHYROXINE NA 125 MCG TABLET (FP) PO SCH (06:11)
[2021-07-03] MEDS: INSULIN SLIDING SCALE (NOVOLOG) 1 VIAL SQ SCH ×4 (06:11→22:24)
[2021-07-03] MEDS: LEVALBUTEROL HCL 0.31 MG/3 ML VIAL.NEB IH SCH ×3 (08:20→20:05)
[2021-07-03] MEDS: INSULIN (LEVEMIR) 100 UNITS/ML UNITS SQ SCH ×2 (08:58→22:22)
[2021-07-03] MEDS: CLOPIDOGREL BISULFATE 75 MG TABLET (FP) PO SCH (11:06)
[2021-07-03] MEDS: busPIRone HCL 5 MG TABLET PO SCH ×2 (11:06→22:21)
[2021-07-03] MEDS: CARVEDILOL 12.5 MG TABLET (FP) PO SCH ×2 (11:06→22:22)
[2021-07-03] MEDS: FOLIC ACID 1 MG TABLET (FP) PO SCH (11:06)
[2021-07-03] MEDS: DOXYCYCLINE HYCLATE 100 MG CAPSULE PO SCH ×2 (11:06→17:25)
[2021-07-03] MEDS: amLODIPine BESYLATE 5 MG TABLET (FP) PO SCH (11:07)
[2021-07-03] MEDS: POLYETHYLENE GLYCOL (HEALTHYLAX) 3350 17 GM PACKET PO SCH ×2 (11:07→22:22)
[2021-07-03] MEDS: BUDESONIDE/FORMETEROL FUMARATE 160/4.5 mcg INHALER IH SCH ×2 (11:08→22:24)
[2021-07-03] MEDS ORDERED: INSULIN (NOVOLOG) ASPART 100 UNITS/ML 10ML VIAL SQ ONE (18:10)
[2021-07-03] MEDS ORDERED: INSULIN (NOVOLOG) ASPART 100 UNITS/ML 10ML VIAL ONE (21:51)
[2021-07-03] MEDS: traZODone HCL 50 MG TABLET (FP) PO SCH (22:22)
[2021-07-03] MEDS: ATORVASTATIN CA 40 MG TABLET (FP) PO SCH (22:23)
[2021-07-04] MEDS: methylPREDNISolone NA SUCC 40 MG/1 ML VIAL IVPUSH SCH ×4 (03:30→20:55)
[2021-07-04] MEDS: LEVOTHYROXINE NA 125 MCG TABLET (FP) PO SCH (06:37)
[2021-07-04] MEDS: INSULIN SLIDING SCALE (NOVOLOG) 1 VIAL SQ SCH ×4 (06:37→21:25)
[2021-07-04] MEDS: INSULIN (LEVEMIR) 100 UNITS/ML UNITS SQ SCH ×2 (06:37→21:24)
[2021-07-04] MEDS: HEPARIN NA (PORCINE) 5,000 UNITS/ML 1ML VIAL SQ SCH ×3 (06:37→21:20)
[2021-07-04] MEDS: LEVALBUTEROL HCL 0.31 MG/3 ML VIAL.NEB IH SCH ×2 (07:55→13:56)
[2021-07-04] MEDS ORDERED: PT OWN MED DRAWER 7, Y5N ONE (09:01)
[2021-07-04] MEDS: POLYETHYLENE GLYCOL (HEALTHYLAX) 3350 17 GM PACKET PO SCH ×2 (09:17→21:33)
[2021-07-04] MEDS: FOLIC ACID 1 MG TABLET (FP) PO SCH (09:17)
[2021-07-04] MEDS: CARVEDILOL 12.5 MG TABLET (FP) PO SCH ×2 (09:17→21:20)
[2021-07-04] MEDS: busPIRone HCL 5 MG TABLET PO SCH ×2 (09:17→21:20)
[2021-07-04] MEDS: AMMONIUM LACTATE 12% LOTION 225 GM BOTTLE TP SCH ×2 (09:18→21:33)
[2021-07-04] MEDS: DOXYCYCLINE HYCLATE 100 MG CAPSULE PO SCH ×2 (09:18→17:41)
[2021-07-04] MEDS: amLODIPine BESYLATE 5 MG TABLET (FP) PO SCH (09:18)
[2021-07-04] MEDS: BUDESONIDE/FORMETEROL FUMARATE 160/4.5 mcg INHALER IH SCH ×2 (09:18→21:35)
[2021-07-04] MEDS: CLOPIDOGREL BISULFATE 75 MG TABLET (FP) PO SCH (09:18)
[2021-07-04] MEDS: hydrALAZINE HCL 10 MG TABLET PO SCH ×2 (11:44→21:19)
[2021-07-04 12:00] LABS: BLOOD UREA NITROGEN 39.9 mg/dL (7-18); MAGNESIUM 2.3 mg/dL (1.8-2.4)
[2021-07-04 12:03] LABS: CREATININE 0.9 mg/dL (0.55-1.3); PHOSPHOROUS 3.8 mg/dL (2.5-4.9)
[2021-07-04] MEDS: traZODone HCL 50 MG TABLET (FP) PO SCH (21:20)
[2021-07-04] MEDS: ATORVASTATIN CA 40 MG TABLET (FP) PO SCH (21:31)
[2021-07-05] MEDS: methylPREDNISolone NA SUCC 40 MG/1 ML VIAL IVPUSH SCH ×2 (02:23→09:31)
[2021-07-05] MEDS: HEPARIN NA (PORCINE) 5,000 UNITS/ML 1ML VIAL SQ SCH ×3 (06:38→21:31)
[2021-07-05] MEDS: INSULIN SLIDING SCALE (NOVOLOG) 1 VIAL SQ SCH ×4 (06:39→21:43)
[2021-07-05] MEDS: LEVOTHYROXINE NA 125 MCG TABLET (FP) PO SCH (06:39)
[2021-07-05] MEDS: INSULIN (LEVEMIR) 100 UNITS/ML UNITS SQ SCH ×2 (08:00→21:43)
[2021-07-05] MEDS: POLYETHYLENE GLYCOL (HEALTHYLAX) 3350 17 GM PACKET PO SCH ×2 (09:31→21:32)
[2021-07-05] MEDS: CLOPIDOGREL BISULFATE 75 MG TABLET (FP) PO SCH (09:31)
[2021-07-05] MEDS: amLODIPine BESYLATE 5 MG TABLET (FP) PO SCH (09:31)
[2021-07-05] MEDS: FOLIC ACID 1 MG TABLET (FP) PO SCH (09:31)
[2021-07-05] MEDS: CARVEDILOL 12.5 MG TABLET (FP) PO SCH ×2 (09:31→21:31)
[2021-07-05] MEDS: busPIRone HCL 5 MG TABLET PO SCH ×2 (09:31→21:31)
[2021-07-05] MEDS: hydrALAZINE HCL 10 MG TABLET PO SCH ×2 (09:31→21:31)
[2021-07-05] MEDS: BUDESONIDE/FORMETEROL FUMARATE 160/4.5 mcg INHALER IH SCH ×2 (09:32→21:44)
[2021-07-05] MEDS: AMMONIUM LACTATE 12% LOTION 225 GM BOTTLE TP SCH ×2 (09:32→21:42)
[2021-07-05] MEDS: TORSEMIDE 20 MG TABLET (FP) PO SCH (13:03)
[2021-07-05] MEDS: ATORVASTATIN CA 40 MG TABLET (FP) PO SCH (21:31)
[2021-07-05] MEDS: traZODone HCL 50 MG TABLET (FP) PO SCH (21:33)
[2021-07-05 22:02] VITALS: TEMP 98.2
[2021-07-06] MEDS ORDERED: guaiFENesin/D-M SUGAR-FREE/ACLHOL-FREE 5 ML UNIT DOSE PO ONE (06:03)
[2021-07-06] MEDS: INSULIN (LEVEMIR) 100 UNITS/ML UNITS SQ SCH (06:26)
[2021-07-06] MEDS: INSULIN SLIDING SCALE (NOVOLOG) 1 VIAL SQ SCH (06:26)
[2021-07-06] MEDS: TORSEMIDE 20 MG TABLET (FP) PO SCH (06:28)
[2021-07-06] MEDS: HEPARIN NA (PORCINE) 5,000 UNITS/ML 1ML VIAL SQ SCH (06:29)
[2021-07-06] MEDS: LEVOTHYROXINE NA 125 MCG TABLET (FP) PO SCH (06:31)
[2021-07-06 08:54] VITALS: BP 157/7; PULSE 64
[2021-07-06] MEDS: amLODIPine BESYLATE 5 MG TABLET (FP) PO SCH (09:34)
[2021-07-06] MEDS: busPIRone HCL 5 MG TABLET PO SCH (09:34)
[2021-07-06] MEDS: predniSONE 20 MG TABLET (UD) PO SCH ×2 (09:34→09:37)
[2021-07-06] MEDS: FOLIC ACID 1 MG TABLET (FP) PO SCH (09:34)
[2021-07-06] MEDS: CLOPIDOGREL BISULFATE 75 MG TABLET (FP) PO SCH (09:34)
[2021-07-06] MEDS: CARVEDILOL 12.5 MG TABLET (FP) PO SCH (09:34)
[2021-07-06] MEDS: POLYETHYLENE GLYCOL (HEALTHYLAX) 3350 17 GM PACKET PO SCH (09:35)
[2021-07-06] MEDS: AMMONIUM LACTATE 12% LOTION 225 GM BOTTLE TP SCH (09:35)
[2021-07-06] MEDS: BUDESONIDE/FORMETEROL FUMARATE 160/4.5 mcg INHALER IH SCH (09:35)
[2021-07-06] MEDS: hydrALAZINE HCL 10 MG TABLET PO SCH (09:35)
== END 2021-07-06 10:56 | disposition home or self-care (01) | DRG 291 ==
LOC: JER 14:22 → JERBED 16:47 → J6S 22:04 → J4W 06-29 14:54
PROVIDERS: ADMIT Internal Medicine
DX: I13.0 Hypertensive heart and chronic kidney disease with heart failure and stage 1 through stage 4 chronic kidney disease, or unspecified chronic kidney disease (principal); I50.23 Acute on chronic systolic (congestive) heart failure; N17.9 Acute kidney failure, unspecified; J44.1 Chronic obstructive pulmonary disease with (acute) exacerbation; I25.10 Atherosclerotic heart disease of native coronary artery without angina pectoris; E78.5 Hyperlipidemia, unspecified; D64.9 Anemia, unspecified; K57.90 Diverticulosis of intestine, part unspecified, without perforation or abscess without bleeding; E11.22 Type 2 diabetes mellitus with diabetic chronic kidney disease; N18.9 Chronic kidney disease, unspecified; B35.1 Tinea unguium; E87.5 Hyperkalemia; E11.40 Type 2 diabetes mellitus with diabetic neuropathy, unspecified; F41.8 Other specified anxiety disorders; B18.2 Chronic viral hepatitis C; G47.00 Insomnia, unspecified; E03.9 Hypothyroidism, unspecified; L85.3 Xerosis cutis; Z95.5 Presence of coronary angioplasty implant and graft; K21.9 Gastro-esophageal reflux disease without esophagitis; I77.819 Aortic ectasia, unspecified site
CPT/HCPCS: 36415; 36600; 71045-TC-FY; 71250-TC; 80048; 80053; 81003; 82728; 82803; 82947; 82962; 83540; 83550; 83735; 83880; 84100; 84484; 85025; 85027; 85610; 85730; 87086; 93005; 93010; 97116-GP; 97161-GP; 99285-25; C9803; J1644; J1756; U0003; U0005

== ENCOUNTER 2021-07-22 17:53 | Inpatient (IN) | payer OTHER ==
[2021-07-22 18:29] VITALS: BMI 33.1
[2021-07-22] MEDS ORDERED: SODIUM CHLORIDE 0.9% 500 ML INFUS.BAG IV ONE (19:12)
[2021-07-22] MEDS ORDERED: ACETAMINOPHEN 1000 MG/100 ML VIAL (NON FORMULARY) IVPB ONE (19:13)
[2021-07-22] MEDS ORDERED: ACETAMINOPHEN INJECTION 100 ML IVPB ONE (19:20)
[2021-07-22 20:00] LABS: VENOUS BASE EXCESS 0.1 mmol/L (-2-2); VENOUS PCO2 35.9 mmHg (38-52); VENOUS PH 7.44 (7.310-7.410)
[2021-07-22 20:02] LABS: BASO % 0.4 % (0-2.0); EOS % 0.2 % (0-4.5); HEMATOCRIT 37.6 % (32.4-45.2); HEMOGLOBIN 12.8 GM/dL (10.7-15.3); LYMPH % 12.4 % (8-40); MCHC 33.9 g/dl (32.0-36.0); MEAN CELL VOLUME 82.5 fl (80-96); MEAN PLT VOLUME 7.8 fl (7.5-11.1); MONO % 8.2 % (3.8-10.2); NEUT % 78.8 % (42.8-82.8); PLATELET COUNT 204 10^3/uL (134-434); RBC 4.56 M/mm3 (3.60-5.2); RDW 18.1 % (11.6-15.6); WHITE BLOOD COUNT 6.8 K/mm3 (4.0-10.0)
[2021-07-22 20:07] LABS: INR 0.93 (0.83-1.09); PROTHROMBIN TIME (PATIENT) 11.3 SEC (9.7-13.0)
[2021-07-22 20:09] LABS: ACTIVATED PTT 28.5 SECONDS (25.2-36.5)
[2021-07-22 20:12] LABS: ALBUMIN 1.9 g/dl (3.4-5.0); BLOOD UREA NITROGEN 19.1 mg/dL (7-18); CALCIUM 7.8 mg/dL (8.5-10.1)
[2021-07-22 20:16] LABS: CREATININE 1.1 mg/dL (0.55-1.3)
[2021-07-22 20:17] LABS: BILIRUBIN,TOTAL 0.8 mg/dL (0.2-1); TOT PROT 6.1 g/dl (6.4-8.2)
[2021-07-22 21:01] LABS: CALCIUM 7.4 mg/dL (8.5-10.1)
[2021-07-22 21:02] LABS: BLOOD UREA NITROGEN 17.5 mg/dL (7-18)
[2021-07-22 21:55] LABS: N-TERMINAL BNP 9161.8 pg/ml (5-450)
[2021-07-22 22:18] LABS: EPI CELLS 6 /uL (0-25.1); HYALINE CASTS 1 /uL (0-3.1); URINE APPEARANCE CLEAR; URINE BACTERIA 43 /uL (0-1359); URINE BILIRUBIN NEGATIVE (NEGATIVE); URINE COLOR YELLOW; URINE GLUCOSE (UA) TRACE (NEGATIVE); URINE KETONE NEGATIVE (NEGATIVE); URINE LEUK ESTERASE NEGATIVE (NEGATIVE); URINE NITRITE NEGATIVE (NEGATIVE); URINE PROTEIN 3+ (NEGATIVE); URINE RBC 9 /uL (0-23.9); URINE UROBILINOGEN 0.2 mg/dL (0.2-1.0); URINE WBC 2 /uL (0-25.8)
[2021-07-22] MEDS ORDERED: ASPIRIN 325 MG TABLET PO ONE (23:17)
[2021-07-23 05:48] LABS: BASO % 1.1 % (0-2.0); HEMATOCRIT 36.7 % (32.4-45.2); HEMOGLOBIN 12.5 GM/dL (10.7-15.3); LYMPH % 17.3 % (8-40); MCH 27.8 pg (25.7-33.7); MCHC 33.9 g/dl (32.0-36.0); MEAN CELL VOLUME 82.1 fl (80-96); MEAN PLT VOLUME 7.4 fl (7.5-11.1); MONO % 8.8 % (3.8-10.2); NEUT % 71.8 % (42.8-82.8); PLATELET COUNT 196 10^3/uL (134-434); RBC 4.48 M/mm3 (3.60-5.2); WHITE BLOOD COUNT 5.4 K/mm3 (4.0-10.0)
[2021-07-23 05:59] LABS: CALCIUM 7.6 mg/dL (8.5-10.1)
[2021-07-23 06:00] LABS: ALBUMIN 1.8 g/dl (3.4-5.0); MAGNESIUM 1.7 mg/dL (1.8-2.4)
[2021-07-23 06:03] LABS: PHOSPHOROUS 3.2 mg/dL (2.5-4.9)
[2021-07-23 06:04] LABS: BILIRUBIN,TOTAL 0.5 mg/dL (0.2-1); TOT PROT 5.3 g/dl (6.4-8.2)
[2021-07-23] MEDS ORDERED: PT OWN MED DRAWER 7, Y5N ONE ×3 (07:38→14:29)
[2021-07-23] MEDS ORDERED: FUROSEMIDE 40 MG/4 ML INJECTABLE VIAL ONE (07:40)
[2021-07-23] MEDS ORDERED: LEVOTHYROXINE NA 50 MCG TABLET (FP) PO SCH (10:00)
[2021-07-23] MEDS: INSULIN SLIDING SCALE (NOVOLOG) 1 VIAL SQ SCH ×4 (10:06→21:41)
[2021-07-23] MEDS: FUROSEMIDE 40 MG/4 ML INJECTABLE VIAL IVPUSH SCH ×2 (10:09→14:42)
[2021-07-23] MEDS: PANTOPRAZOLE 40 MG TABLET PO SCH (11:05)
[2021-07-23] MEDS: CLOPIDOGREL BISULFATE 75 MG TABLET (FP) PO SCH (11:06)
[2021-07-23] MEDS: ASPIRIN 81 MG CHEWABLE TABLETS PO SCH (11:06)
[2021-07-23] MEDS: LEVOTHYROXINE NA 125 MCG TABLET (FP) PO SCH (11:06)
[2021-07-23] MEDS ORDERED: MAGNESIUM 2GM/50ML STERILE WATER IVPB IVPB ONE (14:15)
[2021-07-23] MEDS: BUDESONIDE/FORMETEROL FUMARATE 160/4.5 mcg INHALER IH SCH ×2 (14:42→21:41)
[2021-07-23] MEDS: ATORVASTATIN CA 40 MG TABLET (FP) PO SCH (21:41)
[2021-07-24] MEDS: INSULIN SLIDING SCALE (NOVOLOG) 1 VIAL SQ SCH ×4 (06:56→21:01)
[2021-07-24] MEDS: LEVOTHYROXINE NA 125 MCG TABLET (FP) PO SCH (06:56)
[2021-07-24] MEDS: FUROSEMIDE 40 MG/4 ML INJECTABLE VIAL IVPUSH SCH (06:56)
[2021-07-24] MEDS: CLOPIDOGREL BISULFATE 75 MG TABLET (FP) PO SCH (09:35)
[2021-07-24] MEDS: BUDESONIDE/FORMETEROL FUMARATE 160/4.5 mcg INHALER IH SCH ×2 (09:35→21:01)
[2021-07-24] MEDS: PANTOPRAZOLE 40 MG TABLET PO SCH (09:35)
[2021-07-24] MEDS: ASPIRIN 81 MG CHEWABLE TABLETS PO SCH (09:35)
[2021-07-24] MEDS: TORSEMIDE 20 MG TABLET (FP) PO SCH (13:41)
[2021-07-24] MEDS: ATORVASTATIN CA 40 MG TABLET (FP) PO SCH (21:01)
[2021-07-25] MEDS: INSULIN SLIDING SCALE (NOVOLOG) 1 VIAL SQ SCH ×4 (06:20→21:35)
[2021-07-25] MEDS: TORSEMIDE 20 MG TABLET (FP) PO SCH ×2 (06:20→13:54)
[2021-07-25] MEDS: LEVOTHYROXINE NA 125 MCG TABLET (FP) PO SCH (06:21)
[2021-07-25] MEDS ORDERED: PT OWN MED DRAWER 7, Y5N ONE (09:09)
[2021-07-25] MEDS: PANTOPRAZOLE 40 MG TABLET PO SCH (09:18)
[2021-07-25] MEDS: BUDESONIDE/FORMETEROL FUMARATE 160/4.5 mcg INHALER IH SCH ×2 (09:18→21:44)
[2021-07-25] MEDS: ATORVASTATIN CA 40 MG TABLET (FP) PO SCH (21:44)
[2021-07-26] MEDS: INSULIN SLIDING SCALE (NOVOLOG) 1 VIAL SQ SCH ×4 (06:34→22:04)
[2021-07-26] MEDS: TORSEMIDE 20 MG TABLET (FP) PO SCH ×2 (06:38→13:58)
[2021-07-26] MEDS: LEVOTHYROXINE NA 125 MCG TABLET (FP) PO SCH (06:38)
[2021-07-26] MEDS: PANTOPRAZOLE 40 MG TABLET PO SCH (10:00)
[2021-07-26] MEDS: BUDESONIDE/FORMETEROL FUMARATE 160/4.5 mcg INHALER IH SCH ×2 (10:00→22:04)
[2021-07-26] MEDS: ATORVASTATIN CA 40 MG TABLET (FP) PO SCH (22:04)
[2021-07-27] MEDS: TORSEMIDE 20 MG TABLET (FP) PO SCH ×2 (06:40→14:41)
[2021-07-27] MEDS: LEVOTHYROXINE NA 125 MCG TABLET (FP) PO SCH (06:40)
[2021-07-27] MEDS: INSULIN SLIDING SCALE (NOVOLOG) 1 VIAL SQ SCH ×4 (06:40→22:19)
[2021-07-27] MEDS: PANTOPRAZOLE 40 MG TABLET PO SCH (09:59)
[2021-07-27] MEDS: BUDESONIDE/FORMETEROL FUMARATE 160/4.5 mcg INHALER IH SCH ×2 (10:00→22:19)
[2021-07-27] MEDS: ATORVASTATIN CA 40 MG TABLET (FP) PO SCH (22:19)
[2021-07-28] MEDS: INSULIN SLIDING SCALE (NOVOLOG) 1 VIAL SQ SCH ×4 (06:15→21:59)
[2021-07-28] MEDS: TORSEMIDE 20 MG TABLET (FP) PO SCH ×2 (06:15→14:04)
[2021-07-28] MEDS: LEVOTHYROXINE NA 125 MCG TABLET (FP) PO SCH (06:15)
[2021-07-28] MEDS: BUDESONIDE/FORMETEROL FUMARATE 160/4.5 mcg INHALER IH SCH ×2 (10:29→22:00)
[2021-07-28] MEDS: PANTOPRAZOLE 40 MG TABLET PO SCH (10:29)
[2021-07-28] MEDS ORDERED: ACETAMINOPHEN 325 MG TABLET (FP) PO PRN (17:47)
[2021-07-28] MEDS: ATORVASTATIN CA 40 MG TABLET (FP) PO SCH (21:58)
[2021-07-29] MEDS: TORSEMIDE 20 MG TABLET (FP) PO SCH ×2 (06:58→13:58)
[2021-07-29] MEDS: LEVOTHYROXINE NA 125 MCG TABLET (FP) PO SCH (06:58)
[2021-07-29] MEDS: INSULIN SLIDING SCALE (NOVOLOG) 1 VIAL SQ SCH ×4 (06:58→21:29)
[2021-07-29] MEDS: PANTOPRAZOLE 40 MG TABLET PO SCH (09:51)
[2021-07-29] MEDS: BUDESONIDE/FORMETEROL FUMARATE 160/4.5 mcg INHALER IH SCH ×2 (09:52→21:29)
[2021-07-29] MEDS: ATORVASTATIN CA 40 MG TABLET (FP) PO SCH (21:28)
[2021-07-30] MEDS: TORSEMIDE 20 MG TABLET (FP) PO SCH ×2 (06:45→13:26)
[2021-07-30] MEDS: INSULIN SLIDING SCALE (NOVOLOG) 1 VIAL SQ SCH ×2 (06:45→11:49)
[2021-07-30] MEDS: LEVOTHYROXINE NA 125 MCG TABLET (FP) PO SCH (06:45)
[2021-07-30 08:25] LABS: HEMATOCRIT 36.5 % (32.4-45.2); HEMOGLOBIN 12.5 GM/dL (10.7-15.3); MCH 28.1 pg (25.7-33.7); MCHC 34.2 g/dl (32.0-36.0); MEAN PLT VOLUME 7.6 fl (7.5-11.1); PLATELET COUNT 349 10^3/uL (134-434); RBC 4.45 M/mm3 (3.60-5.2); WHITE BLOOD COUNT 5.9 K/mm3 (4.0-10.0)
[2021-07-30 08:30] LABS: ALBUMIN 1.9 g/dl (3.4-5.0); BLOOD UREA NITROGEN 27.9 mg/dL (7-18); CALCIUM 8.3 mg/dL (8.5-10.1)
[2021-07-30 08:34] LABS: CREATININE 1.4 mg/dL (0.55-1.3)
[2021-07-30 08:35] LABS: BILIRUBIN,TOTAL 0.4 mg/dL (0.2-1); TOT PROT 5.8 g/dl (6.4-8.2)
[2021-07-30] MEDS: BUDESONIDE/FORMETEROL FUMARATE 160/4.5 mcg INHALER IH SCH (09:44)
[2021-07-30] MEDS: PANTOPRAZOLE 40 MG TABLET PO SCH (09:44)
[2021-07-30 10:12] LABS: ANISOCYTOSIS 1+; MACROCYTOSIS 0; PLATELET ESTIMATE NORMAL
[2021-07-30 15:16] VITALS: BP 144/80; PULSE 111; TEMP 98.1
== END 2021-07-30 17:52 | disposition home health service (06) | DRG 64 ==
LOC: JER 17:53 → JERBED 23:39 → J4S 07-23 09:06 → UNDODISIN 07-30 17:35
PROVIDERS: ADMIT Internal Medicine
DX: I63.9 Cerebral infarction, unspecified (principal); G93.6 Cerebral edema; I61.9 Nontraumatic intracerebral hemorrhage, unspecified; I50.22 Chronic systolic (congestive) heart failure; I31.3 Pericardial effusion (noninflammatory); E87.1 Hypo-osmolality and hyponatremia; I13.0 Hypertensive heart and chronic kidney disease with heart failure and stage 1 through stage 4 chronic kidney disease, or unspecified chronic kidney disease; J44.9 Chronic obstructive pulmonary disease, unspecified; F32.9 Major depressive disorder, single episode, unspecified; F41.9 Anxiety disorder, unspecified; Z79.4 Long term (current) use of insulin; K57.90 Diverticulosis of intestine, part unspecified, without perforation or abscess without bleeding; I25.10 Atherosclerotic heart disease of native coronary artery without angina pectoris; Z86.73 Personal history of transient ischemic attack (TIA), and cerebral infarction without residual deficits; E78.5 Hyperlipidemia, unspecified; F03.90 Unspecified dementia, unspecified severity, without behavioral disturbance, psychotic disturbance, mood disturbance, and anxiety; E03.9 Hypothyroidism, unspecified; I27.20 Pulmonary hypertension, unspecified; E11.22 Type 2 diabetes mellitus with diabetic chronic kidney disease; N18.9 Chronic kidney disease, unspecified; D64.9 Anemia, unspecified
CPT/HCPCS: 36415; 70450-TC; 70551-TC; 71045-TC-FY; 74177-TC; 80048; 80053; 81003; 82550; 82803; 82962; 83605; 83735; 83880; 84100; 84443; 84484; 85025; 85610; 85730; 87040; 87086; 87804; 93005; 93010; 93306-TC; 93880-TC; 93971-TC; 97116-GP; 97161-GP; 99285-25; C9803; J0131; Q9967; U0003; U0005

== ENCOUNTER 2021-08-16 10:59 | Inpatient (IN) | payer OTHER ==
[2021-08-16 12:42] LABS: BASO % 1.2 % (0-2.0); EOS % 0.5 % (0-4.5); HEMATOCRIT 40.1 % (32.4-45.2); HEMOGLOBIN 13.6 GM/dL (10.7-15.3); LYMPH % 13.8 % (8-40); MCH 28.1 pg (25.7-33.7); MEAN CELL VOLUME 82.6 fl (80-96); MONO % 5.2 % (3.8-10.2); NEUT % 79.3 % (42.8-82.8); PLATELET COUNT 342 10^3/uL (134-434); RBC 4.85 M/mm3 (3.60-5.2); RDW 18.3 % (11.6-15.6); WHITE BLOOD COUNT 10.4 K/mm3 (4.0-10.0)
[2021-08-16 12:48] LABS: INR 0.94 (0.83-1.09); PROTHROMBIN TIME (PATIENT) 11.5 SEC (9.7-13.0)
[2021-08-16 12:51] LABS: ACTIVATED PTT 29.9 SECONDS (25.2-36.5)
[2021-08-16 13:11] LABS: CALCIUM 8.6 mg/dL (8.5-10.1)
[2021-08-16 13:12] LABS: ALBUMIN 2.2 g/dl (3.4-5.0); BLOOD UREA NITROGEN 23.2 mg/dL (7-18); MAGNESIUM 1.9 mg/dL (1.8-2.4)
[2021-08-16 13:16] LABS: BILIRUBIN,TOTAL 0.4 mg/dL (0.2-1); TOT PROT 6.6 g/dl (6.4-8.2)
[2021-08-16 13:26] LABS: ANISOCYTOSIS 1+; MACROCYTOSIS 0; PLATELET ESTIMATE NORMAL
[2021-08-16 14:31] LABS: EPI CELLS 15 /uL (0-25.1); HYALINE CASTS 0 /uL (0-3.1); PH,URINE 6.5 (5.0-8.0); URINE APPEARANCE CLEAR; URINE BACTERIA 125 /uL (0-1359); URINE BILIRUBIN NEGATIVE (NEGATIVE); URINE COLOR YELLOW; URINE GLUCOSE (UA) NEGATIVE (NEGATIVE); URINE KETONE NEGATIVE (NEGATIVE); URINE LEUK ESTERASE NEGATIVE (NEGATIVE); URINE NITRITE NEGATIVE (NEGATIVE); URINE PROTEIN 3+ (NEGATIVE); URINE RBC 10 /uL (0-23.9); URINE UROBILINOGEN 0.2 mg/dL (0.2-1.0); URINE WBC 7 /uL (0-25.8)
[2021-08-16] MEDS: ATORVASTATIN CA 40 MG TABLET (FP) PO SCH (22:59)
[2021-08-16] MEDS: CARVEDILOL 12.5 MG TABLET (FP) PO SCH (22:59)
[2021-08-16] MEDS: hydrALAZINE HCL 25 MG TABLET (FP) PO SCH (22:59)
[2021-08-16] MEDS: HEPARIN NA (PORCINE) 5,000 UNITS/ML 1ML VIAL SQ SCH (22:59)
[2021-08-16] MEDS: busPIRone HCL 5 MG TABLET PO SCH (22:59)
[2021-08-16] MEDS: BUDESONIDE/FORMETEROL FUMARATE 160/4.5 mcg INHALER IH SCH (23:00)
[2021-08-16] MEDS: INSULIN SLIDING SCALE (NOVOLOG) 1 VIAL SQ SCH (23:14)
[2021-08-17] MEDS: TORSEMIDE 20 MG TABLET (FP) PO SCH ×2 (05:38→13:49)
[2021-08-17] MEDS: hydrALAZINE HCL 25 MG TABLET (FP) PO SCH ×3 (05:38→21:56)
[2021-08-17] MEDS: busPIRone HCL 5 MG TABLET PO SCH ×3 (05:38→21:54)
[2021-08-17] MEDS: INSULIN SLIDING SCALE (NOVOLOG) 1 VIAL SQ SCH ×5 (06:32→22:03)
[2021-08-17] MEDS: LEVOTHYROXINE NA 125 MCG TABLET (FP) PO SCH (06:32)
[2021-08-17] MEDS ORDERED: sitaGLIPtin PHOSPHATE 50 MG TABLET PO SCH (07:00)
[2021-08-17 07:39] VITALS: BMI 24.7
[2021-08-17 08:09] LABS: BASO % 0.7 % (0-2.0); EOS % 0.6 % (0-4.5); HEMATOCRIT 37.5 % (32.4-45.2); HEMOGLOBIN 12.8 GM/dL (10.7-15.3); LYMPH % 15.3 % (8-40); MCH 28.2 pg (25.7-33.7); MCHC 34.2 g/dl (32.0-36.0); MEAN CELL VOLUME 82.5 fl (80-96); MEAN PLT VOLUME 7.3 fl (7.5-11.1); MONO % 5.8 % (3.8-10.2); NEUT % 77.6 % (42.8-82.8); PLATELET COUNT 350 10^3/uL (134-434); RBC 4.55 M/mm3 (3.60-5.2); RDW 18.5 % (11.6-15.6)
[2021-08-17 08:20] LABS: CALCIUM 8.1 mg/dL (8.5-10.1)
[2021-08-17 08:21] LABS: ALBUMIN 2.1 g/dl (3.4-5.0); BLOOD UREA NITROGEN 23.9 mg/dL (7-18)
[2021-08-17 08:24] LABS: CREATININE 0.9 mg/dL (0.55-1.3)
[2021-08-17 08:25] LABS: BILIRUBIN,TOTAL 0.5 mg/dL (0.2-1); TOT PROT 6.2 g/dl (6.4-8.2)
[2021-08-17] MEDS: HEPARIN NA (PORCINE) 5,000 UNITS/ML 1ML VIAL SQ SCH ×2 (09:45→21:53)
[2021-08-17] MEDS: amLODIPine BESYLATE 10 MG TABLET (FP) PO SCH (09:45)
[2021-08-17] MEDS: CARVEDILOL 12.5 MG TABLET (FP) PO SCH ×2 (09:45→21:53)
[2021-08-17] MEDS: BUDESONIDE/FORMETEROL FUMARATE 160/4.5 mcg INHALER IH SCH (09:47)
[2021-08-17 11:01] LABS: ANISOCYTOSIS 1+; MACROCYTOSIS 0; OVALOCYTE 1+; PLATELET ESTIMATE NORMAL; TEAR DROP CELLS 1+; TOXIC GRANULATION 1+
[2021-08-17] MEDS: ATORVASTATIN CA 40 MG TABLET (FP) PO SCH (21:56)
[2021-08-18] MEDS: BUDESONIDE/FORMETEROL FUMARATE 160/4.5 mcg INHALER IH SCH ×3 (00:18→23:27)
[2021-08-18] MEDS: busPIRone HCL 5 MG TABLET PO SCH ×3 (05:28→23:18)
[2021-08-18] MEDS: TORSEMIDE 20 MG TABLET (FP) PO SCH ×2 (05:28→14:03)
[2021-08-18] MEDS: hydrALAZINE HCL 25 MG TABLET (FP) PO SCH ×3 (05:28→23:18)
[2021-08-18] MEDS: INSULIN SLIDING SCALE (NOVOLOG) 1 VIAL SQ SCH ×4 (06:00→23:37)
[2021-08-18] MEDS: LEVOTHYROXINE NA 125 MCG TABLET (FP) PO SCH (06:10)
[2021-08-18] MEDS: sitaGLIPtin PHOSPHATE 50 MG TABLET PO SCH (06:10)
[2021-08-18] MEDS: amLODIPine BESYLATE 10 MG TABLET (FP) PO SCH (09:09)
[2021-08-18] MEDS: CARVEDILOL 12.5 MG TABLET (FP) PO SCH ×2 (09:09→23:18)
[2021-08-18] MEDS: HEPARIN NA (PORCINE) 5,000 UNITS/ML 1ML VIAL SQ SCH ×2 (09:09→23:18)
[2021-08-18] MEDS: CLOPIDOGREL BISULFATE 75 MG TABLET (FP) PO SCH (09:09)
[2021-08-18] MEDS: guaiFENesin 200 MG/10 ML 10 ML UNIT-DOSE CUPS PO PRN (17:21)
[2021-08-18] MEDS ORDERED: INSULIN (NOVOLOG) ASPART 100 UNITS/ML 10ML VIAL ONE (21:57)
[2021-08-18] MEDS: ATORVASTATIN CA 40 MG TABLET (FP) PO SCH (23:18)
[2021-08-19] MEDS: sitaGLIPtin PHOSPHATE 50 MG TABLET PO SCH (06:05)
[2021-08-19] MEDS: LEVOTHYROXINE NA 125 MCG TABLET (FP) PO SCH (06:05)
[2021-08-19] MEDS: INSULIN SLIDING SCALE (NOVOLOG) 1 VIAL SQ SCH ×4 (06:06→21:27)
[2021-08-19] MEDS: busPIRone HCL 5 MG TABLET PO SCH ×3 (06:06→21:19)
[2021-08-19] MEDS: TORSEMIDE 20 MG TABLET (FP) PO SCH ×2 (06:06→13:48)
[2021-08-19] MEDS: hydrALAZINE HCL 25 MG TABLET (FP) PO SCH ×3 (06:06→21:19)
[2021-08-19] MEDS: amLODIPine BESYLATE 10 MG TABLET (FP) PO SCH (09:22)
[2021-08-19] MEDS: CLOPIDOGREL BISULFATE 75 MG TABLET (FP) PO SCH (09:22)
[2021-08-19] MEDS: HEPARIN NA (PORCINE) 5,000 UNITS/ML 1ML VIAL SQ SCH ×2 (09:22→21:18)
[2021-08-19] MEDS: guaiFENesin 200 MG/10 ML 10 ML UNIT-DOSE CUPS PO PRN (09:22)
[2021-08-19] MEDS: CARVEDILOL 12.5 MG TABLET (FP) PO SCH ×2 (09:22→21:19)
[2021-08-19] MEDS: BUDESONIDE/FORMETEROL FUMARATE 160/4.5 mcg INHALER IH SCH ×2 (09:35→21:29)
[2021-08-19] MEDS ORDERED: INSULIN (NOVOLOG) ASPART 100 UNITS/ML 10ML VIAL ONE (20:43)
[2021-08-19] MEDS: ATORVASTATIN CA 40 MG TABLET (FP) PO SCH (21:19)
[2021-08-19] MEDS ORDERED: traZODone HCL 50 MG TABLET (FP) PO ONE (22:36)
[2021-08-20] MEDS: busPIRone HCL 5 MG TABLET PO SCH (06:19)
[2021-08-20] MEDS: hydrALAZINE HCL 25 MG TABLET (FP) PO SCH (06:20)
[2021-08-20] MEDS: LEVOTHYROXINE NA 125 MCG TABLET (FP) PO SCH (06:20)
[2021-08-20] MEDS: sitaGLIPtin PHOSPHATE 50 MG TABLET PO SCH (06:20)
[2021-08-20] MEDS: INSULIN SLIDING SCALE (NOVOLOG) 1 VIAL SQ SCH (06:21)
[2021-08-20] MEDS ORDERED: PT OWN MED DRAWER 7, Y5N ONE ×2 (06:37→07:00)
[2021-08-20] MEDS: TORSEMIDE 20 MG TABLET (FP) PO SCH (06:39)
[2021-08-20] MEDS ORDERED: INSULIN (LEVEMIR) 100 UNITS/ML UNITS SQ ONE (06:59)
[2021-08-20] MEDS ORDERED: metFORMIN HCL 500 MG TABLET (FP) PO SCH ×2 (07:00→16:30)
[2021-08-20] MEDS ORDERED: guaiFENesin 200 MG/10 ML 10 ML UNIT-DOSE CUPS PO PRN (07:24)
[2021-08-20] MEDS ORDERED: HEPARIN NA (PORCINE) 5,000 UNITS/ML 1ML VIAL SQ SCH (10:00)
[2021-08-20] MEDS ORDERED: CLOPIDOGREL BISULFATE 75 MG TABLET (FP) PO SCH (10:00)
[2021-08-20] MEDS ORDERED: CARVEDILOL 12.5 MG TABLET (FP) PO SCH (10:00)
[2021-08-20] MEDS ORDERED: BUDESONIDE/FORMETEROL FUMARATE 160/4.5 mcg INHALER IH SCH (10:00)
[2021-08-20] MEDS ORDERED: amLODIPine BESYLATE 10 MG TABLET (FP) PO SCH (10:00)
[2021-08-20] MEDS ORDERED: INSULIN SLIDING SCALE (NOVOLOG) 1 VIAL SQ SCH (11:00)
[2021-08-20 13:31] VITALS: BP 111/41; PULSE 67; TEMP 98.2
[2021-08-20] MEDS ORDERED: hydrALAZINE HCL 50 MG TABLET (FP) PO SCH (14:00)
[2021-08-20] MEDS ORDERED: TORSEMIDE 20 MG TABLET (FP) PO SCH (14:00)
[2021-08-20] MEDS ORDERED: busPIRone HCL 5 MG TABLET PO SCH (14:00)
[2021-08-20] MEDS ORDERED: ATORVASTATIN CA 40 MG TABLET (FP) PO SCH (22:00)
[2021-08-20] MEDS ORDERED: traZODone HCL 50 MG TABLET (FP) PO SCH ×2 (22:00)
[2021-08-21] MEDS ORDERED: LEVOTHYROXINE NA 125 MCG TABLET (FP) PO SCH (07:00)
[2021-08-21] MEDS ORDERED: sitaGLIPtin PHOSPHATE 50 MG TABLET PO SCH (07:00)
== END 2021-08-20 13:53 | DRG 312 ==
LOC: JER 10:59 → JERBED 14:28 → J4W 22:39 → J5S 08-20 04:45
PROVIDERS: ADMIT Family Medicine; ATTEND Family Medicine
DX: R55 Syncope and collapse (principal); I31.3 Pericardial effusion (noninflammatory); I50.22 Chronic systolic (congestive) heart failure; J44.9 Chronic obstructive pulmonary disease, unspecified; F03.90 Unspecified dementia, unspecified severity, without behavioral disturbance, psychotic disturbance, mood disturbance, and anxiety; F32.9 Major depressive disorder, single episode, unspecified; I25.10 Atherosclerotic heart disease of native coronary artery without angina pectoris; F41.9 Anxiety disorder, unspecified; Z79.84 Long term (current) use of oral hypoglycemic drugs; Z79.4 Long term (current) use of insulin; I11.0 Hypertensive heart disease with heart failure; R05.9 Cough, unspecified; Z86.73 Personal history of transient ischemic attack (TIA), and cerebral infarction without residual deficits; E03.9 Hypothyroidism, unspecified; E11.40 Type 2 diabetes mellitus with diabetic neuropathy, unspecified; I77.819 Aortic ectasia, unspecified site
CPT/HCPCS: 36415; 70450-TC; 71045-TC-FY; 71250-TC; 80053; 80061; 81003; 82550; 82553; 82962; 83036; 83735; 84443; 84484; 85025; 85610; 85730; 87086; 93005; 93010; 99285-25; C9803; J1644; U0003; U0005

== ENCOUNTER 2021-10-03 16:38 | Inpatient (IN) | payer OTHER ==
[2021-10-03 16:56] VITALS: BMI 29.0
[2021-10-03] MEDS ORDERED: ACETAMINOPHEN 325 MG TABLET (FP) PO ONE (17:14)
[2021-10-03] MEDS ORDERED: DIPHTH,PERTUSS(ACELL),TET 0.5 ML DISP.SYRIN IM ONE ×2 (17:29→19:52)
[2021-10-03] MEDS ORDERED: ACETAMINOPHEN 325 MG TABLET (FP) ONE ×2 (17:49→22:33)
[2021-10-03 19:44] LABS: BASO % 0.7 % (0-2.0); EOS % 0.6 % (0-4.5); HEMATOCRIT 31.9 % (32.4-45.2); HEMOGLOBIN 10.4 GM/dL (10.7-15.3); LYMPH % 10.7 % (8-40); MCH 27.6 pg (25.7-33.7); MCHC 32.7 g/dl (32.0-36.0); MEAN CELL VOLUME 84.3 fl (80-96); MEAN PLT VOLUME 6.9 fl (7.5-11.1); MONO % 5.5 % (3.8-10.2); NEUT % 82.5 % (42.8-82.8); PLATELET COUNT 448 10^3/uL (134-434); RBC 3.78 M/mm3 (3.60-5.2); RDW 20.2 % (11.6-15.6); WHITE BLOOD COUNT 9.5 K/mm3 (4.0-10.0)
[2021-10-03 20:05] LABS: CHLORIDE 102 mmol/L (98-107); SODIUM 137 mmol/L (136-145)
[2021-10-03 20:07] LABS: EPI CELLS 5 /uL (0-25.1); HYALINE CASTS 1 /uL (0-3.1); PH,URINE 7.5 (5.0-8.0); URINE APPEARANCE CLEAR; URINE BACTERIA 15 /uL (0-1359); URINE BILIRUBIN NEGATIVE (NEGATIVE); URINE COLOR YELLOW; URINE GLUCOSE (UA) TRACE (NEGATIVE); URINE KETONE NEGATIVE (NEGATIVE); URINE LEUK ESTERASE NEGATIVE (NEGATIVE); URINE NITRITE NEGATIVE (NEGATIVE); URINE PROTEIN 3+ (NEGATIVE); URINE RBC 17 /uL (0-23.9); URINE UROBILINOGEN 0.2 mg/dL (0.2-1.0); URINE WBC 3 /uL (0-25.8)
[2021-10-03 20:10] LABS: ALBUMIN 2.3 g/dl (3.4-5.0); ANION GAP 9 MMOL/L (8-16); BLOOD UREA NITROGEN 25.6 mg/dL (7-18); CALCIUM 8.5 mg/dL (8.5-10.1); CO2 25 mmol/L (21-32); GLUCOSE,RANDOM 135 mg/dL (74-106); MAGNESIUM 2.3 mg/dL (1.8-2.4)
[2021-10-03 20:13] LABS: CREATININE 1.1 mg/dL (0.55-1.3); SGOT/AST 36 U/L (15-37); SGPT/ALT 22 U/L (13-61)
[2021-10-03 20:14] LABS: BILIRUBIN,TOTAL 0.4 mg/dL (0.2-1); TOT PROT 7.4 g/dl (6.4-8.2)
[2021-10-03 20:15] LABS: ALK PHOS 88 U/L (45-117)
[2021-10-03] MEDS ORDERED: POLYETHYLENE GLYCOL (HEALTHYLAX) 3350 17 GM PACKET PO PRN (21:09)
[2021-10-03] MEDS ORDERED: ACETAMINOPHEN 500 MG TABLET (FP) PO SCH (22:00)
[2021-10-03] MEDS ORDERED: ATORVASTATIN CA 40 MG TABLET (FP) ONE (22:32)
[2021-10-03] MEDS ORDERED: hydrALAZINE HCL 25 MG TABLET (FP) ONE (22:32)
[2021-10-03] MEDS ORDERED: busPIRone HCL 5 MG TABLET ONE (22:32)
[2021-10-03] MEDS: busPIRone HCL 10 MG TABLET (FP) PO SCH (22:45)
[2021-10-03] MEDS: hydrALAZINE HCL 50 MG TABLET (FP) PO SCH (22:45)
[2021-10-03] MEDS: ATORVASTATIN CA 40 MG TABLET (FP) PO SCH (22:45)
[2021-10-03] MEDS: INSULIN SLIDING SCALE (NOVOLOG) 1 VIAL SQ SCH (22:47)
[2021-10-04] MEDS ORDERED: ACETAMINOPHEN 1000 MG/100 ML VIAL IVPB PRN (03:57)
[2021-10-04] MEDS: hydrALAZINE HCL 50 MG TABLET (FP) PO SCH ×3 (06:54→21:35)
[2021-10-04] MEDS: TORSEMIDE 20 MG TABLET (FP) PO SCH ×2 (06:54→13:28)
[2021-10-04] MEDS: INSULIN SLIDING SCALE (NOVOLOG) 1 VIAL SQ SCH ×4 (06:54→21:37)
[2021-10-04 06:59] LABS: BASO % 0.7 % (0-2.0); EOS % 2.8 % (0-4.5); HEMATOCRIT 31.4 % (32.4-45.2); HEMOGLOBIN 10.3 GM/dL (10.7-15.3); LYMPH % 13.7 % (8-40); MCH 27.9 pg (25.7-33.7); MCHC 32.6 g/dl (32.0-36.0); MEAN CELL VOLUME 85.6 fl (80-96); MONO % 8.1 % (3.8-10.2); NEUT % 74.7 % (42.8-82.8); PLATELET COUNT 401 10^3/uL (134-434); RBC 3.67 M/mm3 (3.60-5.2); RDW 20.1 % (11.6-15.6)
[2021-10-04] MEDS ORDERED: LEVOTHYROXINE NA 125 MCG TABLET (FP) PO SCH ×2 (07:00→22:14)
[2021-10-04 07:25] LABS: INR 1.07 (0.83-1.09)
[2021-10-04 07:26] LABS: BLOOD UREA NITROGEN 24.2 mg/dL (7-18); CALCIUM 8.2 mg/dL (8.5-10.1); MAGNESIUM 2.3 mg/dL (1.8-2.4)
[2021-10-04 07:29] LABS: ACTIVATED PTT 30.6 SECONDS (25.2-36.5)
[2021-10-04 07:30] LABS: CREATININE 1.1 mg/dL (0.55-1.3)
[2021-10-04] MEDS: busPIRone HCL 10 MG TABLET (FP) PO SCH ×2 (10:16→21:35)
[2021-10-04] MEDS: amLODIPine BESYLATE 10 MG TABLET (FP) PO SCH (10:16)
[2021-10-04] MEDS: CARVEDILOL 12.5 MG TABLET (FP) PO SCH (10:16)
[2021-10-04] MEDS: ATORVASTATIN CA 40 MG TABLET (FP) PO SCH (21:35)
[2021-10-05] MEDS ORDERED: LEVOTHYROXINE NA 112 MCG TABLET (FP) ONE (06:05)
[2021-10-05] MEDS ORDERED: LEVOTHYROXINE NA 25 MCG TABLET (FP) ONE (06:05)
[2021-10-05] MEDS: TORSEMIDE 20 MG TABLET (FP) PO SCH ×2 (06:07→14:57)
[2021-10-05] MEDS: metFORMIN HCL 500 MG TABLET (FP) PO SCH ×2 (06:07→17:19)
[2021-10-05] MEDS: hydrALAZINE HCL 50 MG TABLET (FP) PO SCH ×3 (06:07→21:55)
[2021-10-05] MEDS: LEVOTHYROXINE 112 MCG, LEVOTHYROXINE 25 MCG PO SCH (06:07)
[2021-10-05] MEDS: INSULIN SLIDING SCALE (NOVOLOG) 1 VIAL SQ SCH ×4 (06:20→21:53)
[2021-10-05] MEDS: ACETAMINOPHEN 325 MG TABLET (FP) PO PRN ×2 (07:31→17:20)
[2021-10-05 08:09] LABS: BASO % 0.6 % (0-2.0); EOS % 1.7 % (0-4.5); HEMATOCRIT 32.2 % (32.4-45.2); HEMOGLOBIN 10.8 GM/dL (10.7-15.3); LYMPH % 12.7 % (8-40); MCH 28.4 pg (25.7-33.7); MCHC 33.5 g/dl (32.0-36.0); MEAN CELL VOLUME 84.8 fl (80-96); MEAN PLT VOLUME 7.2 fl (7.5-11.1); MONO % 7.5 % (3.8-10.2); NEUT % 77.5 % (42.8-82.8); PLATELET COUNT 385 10^3/uL (134-434); RBC 3.79 M/mm3 (3.60-5.2); RDW 19.7 % (11.6-15.6); WHITE BLOOD COUNT 7.7 K/mm3 (4.0-10.0)
[2021-10-05 08:33] LABS: CALCIUM 8.3 mg/dL (8.5-10.1)
[2021-10-05 08:34] LABS: ALBUMIN 1.9 g/dl (3.4-5.0); BLOOD UREA NITROGEN 19.9 mg/dL (7-18)
[2021-10-05 08:38] LABS: BILIRUBIN,TOTAL 0.6 mg/dL (0.2-1); TOT PROT 6.7 g/dl (6.4-8.2)
[2021-10-05] MEDS: busPIRone HCL 10 MG TABLET (FP) PO SCH ×2 (09:28→21:55)
[2021-10-05] MEDS: CARVEDILOL 12.5 MG TABLET (FP) PO SCH (09:29)
[2021-10-05] MEDS: amLODIPine BESYLATE 10 MG TABLET (FP) PO SCH (09:29)
[2021-10-05] MEDS: PANTOPRAZOLE 40 MG TABLET PO SCH (15:43)
[2021-10-05] MEDS: MAG HYDROX/AL HYDROX/SIMETH 30 ML UNIT-DOSE CUP PO PRN (17:20)
[2021-10-05] MEDS: ATORVASTATIN CA 40 MG TABLET (FP) PO SCH (21:55)
[2021-10-06] MEDS ORDERED: LEVOTHYROXINE NA 25 MCG TABLET (FP) ONE (06:22)
[2021-10-06] MEDS ORDERED: LEVOTHYROXINE NA 112 MCG TABLET (FP) ONE (06:22)
[2021-10-06] MEDS: LEVOTHYROXINE 112 MCG, LEVOTHYROXINE 25 MCG PO SCH (06:25)
[2021-10-06] MEDS: INSULIN SLIDING SCALE (NOVOLOG) 1 VIAL SQ SCH ×4 (06:25→21:28)
[2021-10-06] MEDS: hydrALAZINE HCL 50 MG TABLET (FP) PO SCH ×3 (06:26→21:28)
[2021-10-06] MEDS: TORSEMIDE 20 MG TABLET (FP) PO SCH ×2 (06:26→13:13)
[2021-10-06] MEDS: metFORMIN HCL 500 MG TABLET (FP) PO SCH (06:26)
[2021-10-06] MEDS: PANTOPRAZOLE 40 MG TABLET PO SCH (09:07)
[2021-10-06] MEDS: CLOPIDOGREL BISULFATE 75 MG TABLET (FP) PO SCH (09:07)
[2021-10-06] MEDS: busPIRone HCL 10 MG TABLET (FP) PO SCH ×2 (09:07→21:28)
[2021-10-06] MEDS: amLODIPine BESYLATE 10 MG TABLET (FP) PO SCH (09:07)
[2021-10-06] MEDS: CARVEDILOL 12.5 MG TABLET (FP) PO SCH (09:07)
[2021-10-06] MEDS: MAG HYDROX/AL HYDROX/SIMETH 30 ML UNIT-DOSE CUP PO PRN (09:15)
[2021-10-06] MEDS: ALBUTEROL SO4 2.5/IPRATROPIUM 0.5 INH SOL 3 ML VIAL.NEB. NEB PRN (09:23)
[2021-10-06] MEDS: ACETAMINOPHEN 325 MG TABLET (FP) PO PRN ×2 (10:51→16:58)
[2021-10-06 12:55] LABS: BASO % 0.4 % (0-2.0); EOS % 0.3 % (0-4.5); HEMATOCRIT 28.6 % (32.4-45.2); HEMOGLOBIN 9.7 GM/dL (10.7-15.3); MCH 28.6 pg (25.7-33.7); MCHC 33.9 g/dl (32.0-36.0); MEAN CELL VOLUME 84.4 fl (80-96); MEAN PLT VOLUME 7.2 fl (7.5-11.1); MONO % 6.7 % (3.8-10.2); NEUT % 82.6 % (42.8-82.8); PLATELET COUNT 348 10^3/uL (134-434); RBC 3.39 M/mm3 (3.60-5.2); RDW 19.8 % (11.6-15.6); WHITE BLOOD COUNT 9.9 K/mm3 (4.0-10.0)
[2021-10-06 13:20] LABS: ALBUMIN 1.7 g/dl (3.4-5.0); CALCIUM 8.2 mg/dL (8.5-10.1)
[2021-10-06 13:21] LABS: BLOOD UREA NITROGEN 34.2 mg/dL (7-18)
[2021-10-06 13:24] LABS: CREATININE 1.5 mg/dL (0.55-1.3)
[2021-10-06 13:25] LABS: BILIRUBIN,TOTAL 0.5 mg/dL (0.2-1); TOT PROT 6.4 g/dl (6.4-8.2)
[2021-10-06] MEDS: SODIUM CHLORIDE 0.45% 1,000 ML IV SCH (18:13)
[2021-10-06] MEDS: ATORVASTATIN CA 40 MG TABLET (FP) PO SCH (21:28)
[2021-10-07] MEDS ORDERED: LEVOTHYROXINE NA 112 MCG TABLET (FP) ONE (05:55)
[2021-10-07] MEDS ORDERED: LEVOTHYROXINE NA 25 MCG TABLET (FP) ONE (05:55)
[2021-10-07] MEDS: TORSEMIDE 20 MG TABLET (FP) PO SCH ×2 (06:08→13:09)
[2021-10-07] MEDS: ACETAMINOPHEN 325 MG TABLET (FP) PO PRN ×2 (06:09→15:55)
[2021-10-07] MEDS: hydrALAZINE HCL 50 MG TABLET (FP) PO SCH ×3 (06:09→21:35)
[2021-10-07] MEDS: LEVOTHYROXINE 112 MCG, LEVOTHYROXINE 25 MCG PO SCH (06:09)
[2021-10-07] MEDS: SODIUM CHLORIDE 0.45% 1,000 ML IV SCH ×2 (06:10→17:14)
[2021-10-07] MEDS: INSULIN SLIDING SCALE (NOVOLOG) 1 VIAL SQ SCH ×4 (06:25→21:34)
[2021-10-07] MEDS: ALBUTEROL SO4 2.5/IPRATROPIUM 0.5 INH SOL 3 ML VIAL.NEB. NEB PRN (08:29)
[2021-10-07] MEDS: CARVEDILOL 12.5 MG TABLET (FP) PO SCH (09:53)
[2021-10-07] MEDS: PANTOPRAZOLE 40 MG TABLET PO SCH ×2 (09:53→21:34)
[2021-10-07] MEDS: busPIRone HCL 10 MG TABLET (FP) PO SCH ×2 (09:53→21:35)
[2021-10-07] MEDS: amLODIPine BESYLATE 10 MG TABLET (FP) PO SCH (09:53)
[2021-10-07] MEDS: CLOPIDOGREL BISULFATE 75 MG TABLET (FP) PO SCH (09:53)
[2021-10-07 11:58] LABS: BASO % 0.2 % (0-2.0); EOS % 0.2 % (0-4.5); HEMATOCRIT 29.7 % (32.4-45.2); HEMOGLOBIN 9.9 GM/dL (10.7-15.3); LYMPH % 7.6 % (8-40); MCH 27.9 pg (25.7-33.7); MCHC 33.2 g/dl (32.0-36.0); MEAN PLT VOLUME 7.3 fl (7.5-11.1); MONO % 7.2 % (3.8-10.2); NEUT % 84.8 % (42.8-82.8); PLATELET COUNT 372 10^3/uL (134-434); RBC 3.54 M/mm3 (3.60-5.2); RDW 19.6 % (11.6-15.6); WHITE BLOOD COUNT 10.4 K/mm3 (4.0-10.0)
[2021-10-07 12:17] LABS: ALBUMIN 1.8 g/dl (3.4-5.0); BLOOD UREA NITROGEN 36.3 mg/dL (7-18)
[2021-10-07 12:20] LABS: CREATININE 1.3 mg/dL (0.55-1.3)
[2021-10-07 12:22] LABS: BILIRUBIN,TOTAL 0.6 mg/dL (0.2-1); TOT PROT 6.3 g/dl (6.4-8.2)
[2021-10-07] MEDS: POLYETHYLENE GLYCOL (HEALTHYLAX) 3350 17 GM PACKET PO SCH (15:56)
[2021-10-07] MEDS: ATORVASTATIN CA 40 MG TABLET (FP) PO SCH (21:34)
[2021-10-08] MEDS ORDERED: LEVOTHYROXINE NA 112 MCG TABLET (FP) ONE (06:01)
[2021-10-08] MEDS ORDERED: LEVOTHYROXINE NA 25 MCG TABLET (FP) ONE (06:01)
[2021-10-08] MEDS: INSULIN SLIDING SCALE (NOVOLOG) 1 VIAL SQ SCH ×4 (06:18→22:02)
[2021-10-08] MEDS: LEVOTHYROXINE 112 MCG, LEVOTHYROXINE 25 MCG PO SCH (06:20)
[2021-10-08] MEDS: hydrALAZINE HCL 50 MG TABLET (FP) PO SCH ×3 (06:21→22:01)
[2021-10-08 07:32] LABS: BASO % 0.2 % (0-2.0); EOS % 0.5 % (0-4.5); HEMATOCRIT 29.8 % (32.4-45.2); HEMOGLOBIN 9.9 GM/dL (10.7-15.3); LYMPH % 13.3 % (8-40); MCHC 33.3 g/dl (32.0-36.0); MEAN CELL VOLUME 84.2 fl (80-96); MEAN PLT VOLUME 7.2 fl (7.5-11.1); MONO % 7.1 % (3.8-10.2); NEUT % 78.9 % (42.8-82.8); PLATELET COUNT 409 10^3/uL (134-434); RBC 3.53 M/mm3 (3.60-5.2); RDW 19.2 % (11.6-15.6); WHITE BLOOD COUNT 7.2 K/mm3 (4.0-10.0)
[2021-10-08 08:00] LABS: CALCIUM 8.1 mg/dL (8.5-10.1)
[2021-10-08 08:01] LABS: ALBUMIN 1.8 g/dl (3.4-5.0); BLOOD UREA NITROGEN 36.6 mg/dL (7-18)
[2021-10-08 08:04] LABS: CREATININE 1.3 mg/dL (0.55-1.3)
[2021-10-08 08:05] LABS: BILIRUBIN,TOTAL 0.7 mg/dL (0.2-1); TOT PROT 6.5 g/dl (6.4-8.2)
[2021-10-08] MEDS: POLYETHYLENE GLYCOL (HEALTHYLAX) 3350 17 GM PACKET PO SCH (09:05)
[2021-10-08] MEDS ORDERED: PT OWN MED DRAWER 7, Y5N ONE (09:28)
[2021-10-08] MEDS: busPIRone HCL 10 MG TABLET (FP) PO SCH ×2 (09:30→22:01)
[2021-10-08] MEDS: CARVEDILOL 12.5 MG TABLET (FP) PO SCH (09:30)
[2021-10-08] MEDS: CLOPIDOGREL BISULFATE 75 MG TABLET (FP) PO SCH (09:30)
[2021-10-08] MEDS: amLODIPine BESYLATE 10 MG TABLET (FP) PO SCH (09:30)
[2021-10-08] MEDS: PANTOPRAZOLE 40 MG TABLET PO SCH ×2 (09:30→22:01)
[2021-10-08] MEDS ORDERED: TORSEMIDE 20 MG TABLET (FP) PO SCH (10:00)
[2021-10-08] MEDS: MAG HYDROX/AL HYDROX/SIMETH 30 ML UNIT-DOSE CUP PO PRN (17:27)
[2021-10-08] MEDS: CEFUROXIME AXETIL 500 MG TABLET PO SCH (22:01)
[2021-10-08] MEDS: ATORVASTATIN CA 40 MG TABLET (FP) PO SCH (22:01)
[2021-10-09] MEDS ORDERED: LEVOTHYROXINE NA 25 MCG TABLET (FP) ONE (05:17)
[2021-10-09] MEDS ORDERED: LEVOTHYROXINE NA 112 MCG TABLET (FP) ONE (05:18)
[2021-10-09] MEDS: ACETAMINOPHEN 325 MG TABLET (FP) PO PRN ×2 (05:20→09:48)
[2021-10-09] MEDS: hydrALAZINE HCL 50 MG TABLET (FP) PO SCH ×2 (05:20→14:41)
[2021-10-09] MEDS: LEVOTHYROXINE 112 MCG, LEVOTHYROXINE 25 MCG PO SCH (06:01)
[2021-10-09] MEDS: INSULIN SLIDING SCALE (NOVOLOG) 1 VIAL SQ SCH ×2 (06:01→12:10)
[2021-10-09] MEDS ORDERED: PT OWN MED DRAWER 7, Y5N ONE (09:44)
[2021-10-09] MEDS: PANTOPRAZOLE 40 MG TABLET PO SCH (09:48)
[2021-10-09] MEDS: busPIRone HCL 10 MG TABLET (FP) PO SCH (09:48)
[2021-10-09] MEDS: CLOPIDOGREL BISULFATE 75 MG TABLET (FP) PO SCH (09:48)
[2021-10-09] MEDS: CARVEDILOL 12.5 MG TABLET (FP) PO SCH (09:48)
[2021-10-09] MEDS: CEFUROXIME AXETIL 500 MG TABLET PO SCH (09:48)
[2021-10-09] MEDS: amLODIPine BESYLATE 10 MG TABLET (FP) PO SCH (09:48)
[2021-10-09] MEDS: POLYETHYLENE GLYCOL (HEALTHYLAX) 3350 17 GM PACKET PO SCH (09:50)
[2021-10-09] MEDS ORDERED: ONDANSETRON *ODT* 4 MG TABLET SL PRN (12:38)
[2021-10-09 14:51] VITALS: BP 136/72; PULSE 74; TEMP 98.6
[2021-10-09 19:19] LABS: BLOOD UREA NITROGEN 36.1 mg/dL (7-18); CALCIUM 8.5 mg/dL (8.5-10.1); CREATININE 1.3 mg/dL (0.55-1.3); MAGNESIUM 2.5 mg/dL (1.8-2.4)
== END 2021-10-09 16:30 | DRG 536 ==
LOC: JER 16:38 → JERBED 21:01 → J4S 10-04 02:26
PROVIDERS: ADMIT Internal Medicine; ATTEND Family Medicine
DX: S32.592A Other specified fracture of left pubis, initial encounter for closed fracture (principal); N17.9 Acute kidney failure, unspecified; I50.32 Chronic diastolic (congestive) heart failure; I47.1 Supraventricular tachycardia; I13.0 Hypertensive heart and chronic kidney disease with heart failure and stage 1 through stage 4 chronic kidney disease, or unspecified chronic kidney disease; F03.90 Unspecified dementia, unspecified severity, without behavioral disturbance, psychotic disturbance, mood disturbance, and anxiety; N18.30 Chronic kidney disease, stage 3 unspecified; E78.5 Hyperlipidemia, unspecified; I25.10 Atherosclerotic heart disease of native coronary artery without angina pectoris; Z98.61 Coronary angioplasty status; E11.22 Type 2 diabetes mellitus with diabetic chronic kidney disease; K21.9 Gastro-esophageal reflux disease without esophagitis; E03.9 Hypothyroidism, unspecified; W19.XXXA Unspecified fall, initial encounter; Y93.9 Activity, unspecified; Y92.89 Other specified places as the place of occurrence of the external cause; Y99.9 Unspecified external cause status
CPT/HCPCS: 36415; 70450-TC; 71045-TC-FY; 72125-TC; 73070-TC-LT-FY; 73090-TC-LT-FY; 73523-TC-FY; 74176-TC; 80048; 80053; 81003; 82550; 82962; 83690; 83735; 84443; 84484; 85025; 85610; 85730; 87086; 90715; 93005; 93010; 94640; 99285-25; C9803; J0131; Q0162; U0003; U0005

== ENCOUNTER 2021-10-19 15:03 | Inpatient (IN) | payer OTHER ==
[2021-10-19 16:02] VITALS: BMI 24.3
[2021-10-19 17:59] LABS: BASO % 0.5 % (0-2.0); EOS % 0.4 % (0-4.5); HEMOGLOBIN 9.8 GM/dL (10.7-15.3); LYMPH % 7.1 % (8-40); MCHC 32.6 g/dl (32.0-36.0); MONO % 4.5 % (3.8-10.2); NEUT % 87.5 % (42.8-82.8); PLATELET COUNT 448 10^3/uL (134-434); RBC 3.61 M/mm3 (3.60-5.2); RDW 18.4 % (11.6-15.6); WHITE BLOOD COUNT 15.5 K/mm3 (4.0-10.0)
[2021-10-19 18:10] LABS: CALCIUM 8.1 mg/dL (8.5-10.1)
[2021-10-19 18:11] LABS: ALBUMIN 1.8 g/dl (3.4-5.0); BLOOD UREA NITROGEN 46.9 mg/dL (7-18)
[2021-10-19 18:14] LABS: CREATININE 1.8 mg/dL (0.55-1.3)
[2021-10-19 18:15] LABS: BILIRUBIN,TOTAL 0.3 mg/dL (0.2-1); TOT PROT 7.2 g/dl (6.4-8.2)
[2021-10-19] MEDS ORDERED: SODIUM CHLORIDE 1,000 ML IV STA (18:20)
[2021-10-19] MEDS ORDERED: ASPIRIN 81 MG CHEWABLE TABLETS PO ONE (18:28)
[2021-10-19] MEDS ORDERED: ASPIRIN 81 MG CHEWABLE TABLETS ONE (19:12)
[2021-10-19] MEDS: ALBUTEROL SO4 2.5/IPRATROPIUM 0.5 INH SOL 3 ML VIAL.NEB. NEB SCH (20:03)
[2021-10-19 21:40] LABS: EPI CELLS 2 /uL (0-25.1); HYALINE CASTS 0 /uL (0-3.1); PH,URINE 5.5 (5.0-8.0); URINE APPEARANCE TURBID; URINE BACTERIA >9,000 /uL (0-1359); URINE BILIRUBIN NEGATIVE (NEGATIVE); URINE COLOR YELLOW; URINE GLUCOSE (UA) NEGATIVE (NEGATIVE); URINE KETONE NEGATIVE (NEGATIVE); URINE LEUK ESTERASE 3+ (NEGATIVE); URINE NITRITE NEGATIVE (NEGATIVE); URINE PROTEIN 3+ (NEGATIVE); URINE RBC 13 /uL (0-23.9); URINE UROBILINOGEN 0.2 mg/dL (0.2-1.0); URINE WBC 2033 /uL (0-25.8)
[2021-10-19] MEDS ORDERED: CEFTRIAXONE 1 GM in DEXTROSE 5%-WATER - 50 ML IVPB ONE (22:22)
[2021-10-19] MEDS ORDERED: ALBUTEROL SO4 2.5/IPRATROPIUM 0.5 INH SOL 3 ML VIAL.NEB. NEB PRN (22:28)
[2021-10-19] MEDS ORDERED: CEFTRIAXONE 1 GM/50 ML BAG ONE (23:22)
[2021-10-20] MEDS ORDERED: APIXABAN 2.5 MG TABLET ONE ×2 (01:44→09:31)
[2021-10-20] MEDS: APIXABAN 2.5 MG TABLET PO SCH ×3 (01:50→22:05)
[2021-10-20] MEDS ORDERED: LEVOTHYROXINE NA 25 MCG TABLET (FP) PO SCH (07:00)
[2021-10-20 09:09] LABS: BASO % 0.9 % (0-2.0); EOS % 3.7 % (0-4.5); HEMATOCRIT 29.1 % (32.4-45.2); HEMOGLOBIN 9.7 GM/dL (10.7-15.3); LYMPH % 11.4 % (8-40); MCH 27.6 pg (25.7-33.7); MCHC 33.3 g/dl (32.0-36.0); MEAN CELL VOLUME 82.9 fl (80-96); MEAN PLT VOLUME 6.8 fl (7.5-11.1); MONO % 6.8 % (3.8-10.2); NEUT % 77.2 % (42.8-82.8); PLATELET COUNT 450 10^3/uL (134-434); RBC 3.51 M/mm3 (3.60-5.2); RDW 18.5 % (11.6-15.6); WHITE BLOOD COUNT 9.4 K/mm3 (4.0-10.0)
[2021-10-20 09:28] LABS: BLOOD UREA NITROGEN 49.7 mg/dL (7-18); CALCIUM 8.4 mg/dL (8.5-10.1)
[2021-10-20 09:29] LABS: ALBUMIN 1.9 g/dl (3.4-5.0)
[2021-10-20] MEDS: LEVOTHYROXINE 112 MCG, LEVOTHYROXINE 25 MCG PO SCH (09:30)
[2021-10-20 09:32] LABS: CREATININE 1.7 mg/dL (0.55-1.3)
[2021-10-20] MEDS ORDERED: CEFTRIAXONE 1 GM/50 ML BAG ONE (09:32)
[2021-10-20] MEDS ORDERED: CLOPIDOGREL BISULFATE 75 MG TABLET (FP) ONE (09:32)
[2021-10-20 09:33] LABS: BILIRUBIN,TOTAL 0.4 mg/dL (0.2-1); TOT PROT 7.2 g/dl (6.4-8.2)
[2021-10-20] MEDS: CLOPIDOGREL BISULFATE 75 MG TABLET (FP) PO SCH (09:40)
[2021-10-20] MEDS: CEFTRIAXONE 1 GM in DEXTROSE 5%-WATER - 50 ML IVPB SCH (09:40)
[2021-10-20] MEDS ORDERED: ASPIRIN 81 MG CHEWABLE TABLETS PO SCH (10:00)
[2021-10-20] MEDS: ATORVASTATIN CA 40 MG TABLET (FP) PO SCH (22:04)
[2021-10-21] MEDS ORDERED: LEVOTHYROXINE NA 112 MCG TABLET (FP) ONE (05:02)
[2021-10-21] MEDS ORDERED: LEVOTHYROXINE NA 25 MCG TABLET (FP) ONE (05:02)
[2021-10-21] MEDS: LEVOTHYROXINE 112 MCG, LEVOTHYROXINE 25 MCG PO SCH (06:07)
[2021-10-21] MEDS ORDERED: cefTRIAXone SODIUM 1 GM VIAL ONE (09:24)
[2021-10-21] MEDS ORDERED: DEXTROSE 5%-WATER - 50 ML IVPB ONE (09:24)
[2021-10-21] MEDS: CEFTRIAXONE 1 GM in DEXTROSE 5%-WATER - 50 ML IVPB SCH (10:31)
[2021-10-21] MEDS: APIXABAN 2.5 MG TABLET PO SCH ×2 (10:32→22:40)
[2021-10-21] MEDS: CLOPIDOGREL BISULFATE 75 MG TABLET (FP) PO SCH (10:32)
[2021-10-21] MEDS: ATORVASTATIN CA 40 MG TABLET (FP) PO SCH (22:40)
[2021-10-21] MEDS: busPIRone HCL 10 MG TABLET (FP) PO SCH (22:40)
[2021-10-22] MEDS ORDERED: LEVOTHYROXINE NA 25 MCG TABLET (FP) ONE (05:42)
[2021-10-22] MEDS ORDERED: LEVOTHYROXINE NA 112 MCG TABLET (FP) ONE (05:42)
[2021-10-22] MEDS ORDERED: TORSEMIDE 20 MG TABLET (FP) PO SCH (06:00)
[2021-10-22] MEDS: LEVOTHYROXINE 112 MCG, LEVOTHYROXINE 25 MCG PO SCH (06:05)
[2021-10-22 07:19] LABS: BASO % 0.8 % (0-2.0); EOS % 1.9 % (0-4.5); HEMATOCRIT 29.6 % (32.4-45.2); HEMOGLOBIN 9.7 GM/dL (10.7-15.3); LYMPH % 13.3 % (8-40); MCH 27.6 pg (25.7-33.7); MCHC 32.9 g/dl (32.0-36.0); MEAN PLT VOLUME 6.8 fl (7.5-11.1); PLATELET COUNT 417 10^3/uL (134-434); RBC 3.53 M/mm3 (3.60-5.2); RDW 18.5 % (11.6-15.6); WHITE BLOOD COUNT 5.5 K/mm3 (4.0-10.0)
[2021-10-22 08:10] LABS: ALBUMIN 1.7 g/dl (3.4-5.0); BLOOD UREA NITROGEN 28.1 mg/dL (7-18)
[2021-10-22 08:13] LABS: CREATININE 0.9 mg/dL (0.55-1.3)
[2021-10-22 08:14] LABS: BILIRUBIN,TOTAL 0.4 mg/dL (0.2-1); TOT PROT 6.6 g/dl (6.4-8.2)
[2021-10-22] MEDS ORDERED: cefTRIAXone SODIUM 1 GM VIAL ONE (09:36)
[2021-10-22] MEDS ORDERED: DEXTROSE 5%-WATER - 50 ML IVPB ONE (09:36)
[2021-10-22] MEDS ORDERED: CARVEDILOL 12.5 MG TABLET (FP) PO SCH (10:00)
[2021-10-22] MEDS: amLODIPine BESYLATE 10 MG TABLET (FP) PO SCH (11:03)
[2021-10-22] MEDS: APIXABAN 5 MG TABLET PO SCH ×2 (11:03→21:59)
[2021-10-22] MEDS: busPIRone HCL 10 MG TABLET (FP) PO SCH ×2 (11:03→21:59)
[2021-10-22] MEDS: CEFTRIAXONE 1 GM in DEXTROSE 5%-WATER - 50 ML IVPB SCH (11:04)
[2021-10-22] MEDS: CLOPIDOGREL BISULFATE 75 MG TABLET (FP) PO SCH (11:04)
[2021-10-22] MEDS: CARVEDILOL 12.5 MG TABLET (FP) PO SCH ×2 (11:04→21:59)
[2021-10-22] MEDS: ATORVASTATIN CA 40 MG TABLET (FP) PO SCH (22:00)
[2021-10-23] MEDS ORDERED: LEVOTHYROXINE NA 25 MCG TABLET (FP) ONE (06:36)
[2021-10-23] MEDS ORDERED: LEVOTHYROXINE NA 112 MCG TABLET (FP) ONE (06:37)
[2021-10-23] MEDS: LEVOTHYROXINE 112 MCG, LEVOTHYROXINE 25 MCG PO SCH (06:40)
[2021-10-23] MEDS ORDERED: DEXTROSE 5%-WATER - 50 ML IVPB ONE (09:26)
[2021-10-23] MEDS ORDERED: cefTRIAXone SODIUM 1 GM VIAL ONE (09:26)
[2021-10-23] MEDS: APIXABAN 5 MG TABLET PO SCH ×2 (10:12→21:04)
[2021-10-23] MEDS: TORSEMIDE 20 MG TABLET (FP) PO SCH (10:12)
[2021-10-23] MEDS: CARVEDILOL 12.5 MG TABLET (FP) PO SCH ×2 (10:12→21:04)
[2021-10-23] MEDS: busPIRone HCL 10 MG TABLET (FP) PO SCH ×2 (10:12→21:04)
[2021-10-23] MEDS: CLOPIDOGREL BISULFATE 75 MG TABLET (FP) PO SCH (10:13)
[2021-10-23] MEDS: amLODIPine BESYLATE 10 MG TABLET (FP) PO SCH (10:13)
[2021-10-23] MEDS: CEFTRIAXONE 1 GM in DEXTROSE 5%-WATER - 50 ML IVPB SCH (10:13)
[2021-10-23] MEDS: ATORVASTATIN CA 40 MG TABLET (FP) PO SCH (21:04)
[2021-10-23] MEDS ORDERED: INSULIN (LEVEMIR) 100 UNITS/ML UNITS SQ SCH (22:00)
[2021-10-24] MEDS ORDERED: LEVOTHYROXINE NA 25 MCG TABLET (FP) ONE (05:37)
[2021-10-24] MEDS ORDERED: LEVOTHYROXINE NA 112 MCG TABLET (FP) ONE (05:37)
[2021-10-24] MEDS: LEVOTHYROXINE 112 MCG, LEVOTHYROXINE 25 MCG PO SCH (06:35)
[2021-10-24] MEDS ORDERED: cefTRIAXone SODIUM 1 GM VIAL ONE (08:59)
[2021-10-24] MEDS ORDERED: DEXTROSE 5%-WATER - 50 ML IVPB ONE (08:59)
[2021-10-24 10:54] VITALS: BP 140/62; PULSE 89; TEMP 97.8
[2021-10-24] MEDS: amLODIPine BESYLATE 10 MG TABLET (FP) PO SCH (11:11)
[2021-10-24] MEDS: busPIRone HCL 10 MG TABLET (FP) PO SCH (11:11)
[2021-10-24] MEDS: CLOPIDOGREL BISULFATE 75 MG TABLET (FP) PO SCH (11:11)
[2021-10-24] MEDS: APIXABAN 5 MG TABLET PO SCH (11:11)
[2021-10-24] MEDS: TORSEMIDE 20 MG TABLET (FP) PO SCH (11:11)
[2021-10-24] MEDS: CARVEDILOL 12.5 MG TABLET (FP) PO SCH (11:11)
[2021-10-24] MEDS: CEFTRIAXONE 1 GM in DEXTROSE 5%-WATER - 50 ML IVPB SCH (11:12)
== END 2021-10-24 12:30 | DRG 300 ==
LOC: JER 15:03 → JERBED 19:02 → J4W 10-20 15:28
PROVIDERS: ADMIT Family Medicine; ATTEND Family Medicine
DX: I82.443 Acute embolism and thrombosis of tibial vein, bilateral (principal); E87.2 Acidosis; I31.3 Pericardial effusion (noninflammatory); I24.8 Other forms of acute ischemic heart disease; N39.0 Urinary tract infection, site not specified; I50.22 Chronic systolic (congestive) heart failure; N17.9 Acute kidney failure, unspecified; I11.0 Hypertensive heart disease with heart failure; J44.9 Chronic obstructive pulmonary disease, unspecified; F03.90 Unspecified dementia, unspecified severity, without behavioral disturbance, psychotic disturbance, mood disturbance, and anxiety; K21.9 Gastro-esophageal reflux disease without esophagitis; E03.9 Hypothyroidism, unspecified; D64.9 Anemia, unspecified; E78.5 Hyperlipidemia, unspecified; F41.9 Anxiety disorder, unspecified; I25.10 Atherosclerotic heart disease of native coronary artery without angina pectoris; M71.21 Synovial cyst of popliteal space [Baker], right knee; I77.819 Aortic ectasia, unspecified site
CPT/HCPCS: 36415; 71046-TC-FY; 74018-TC-FY; 80053; 81003; 82550; 82962; 83605; 83880; 84443; 84484; 85025; 87040; 87086; 87186; 93005; 93010; 93970-TC; 94640; 97116-GP; 97162-GP; 99285-25; C9803; U0003; U0005

== ENCOUNTER 2021-10-24 18:24 | Inpatient (IN) | payer OTHER ==
[2021-10-24] MEDS ORDERED: PANTOPRAZOLE SODIUM 40 MG VIAL IVPUSH ONE (19:27)
[2021-10-24] MEDS ORDERED: PANTOPRAZOLE SODIUM 40 MG VIAL ONE ×2 (19:32→20:56)
[2021-10-24 19:39] LABS: MCH 27.3 pg (25.7-33.7); MCHC 32.6 g/dl (32.0-36.0); MEAN CELL VOLUME 83.9 fl (80-96); MEAN PLT VOLUME 7.1 fl (7.5-11.1); PLATELET COUNT 316 10^3/uL (134-434); RBC 2.38 M/mm3 (3.60-5.2); RDW 18.9 % (11.6-15.6); WHITE BLOOD COUNT 9.4 K/mm3 (4.0-10.0)
[2021-10-24 19:46] LABS: INR 1.98 (0.83-1.09); PROTHROMBIN TIME (PATIENT) 23.3 SEC (9.7-13.0)
[2021-10-24 19:48] LABS: ACTIVATED PTT 31.4 SECONDS (25.2-36.5)
[2021-10-24 19:54] LABS: CHLORIDE 103 mmol/L (98-107); SODIUM 135 mmol/L (136-145)
[2021-10-24 19:56] LABS: ALBUMIN 1.7 g/dl (3.4-5.0); ANION GAP 9 MMOL/L (8-16); CALCIUM 7.7 mg/dL (8.5-10.1); CO2 24 mmol/L (21-32); HEMOGLOBIN 6.5 GM/dL (10.7-15.3)
[2021-10-24 19:59] LABS: CREATININE 1.2 mg/dL (0.55-1.3); SGOT/AST 12 U/L (15-37); SGPT/ALT 10 U/L (13-61)
[2021-10-24 20:02] LABS: LACTIC ACID 2.2 mmol/L (0.4-2.0)
[2021-10-24 20:03] LABS: ALK PHOS 117 U/L (45-117); TOT PROT 5.8 g/dl (6.4-8.2)
[2021-10-24 20:37] LABS: ANISOCYTOSIS 2+; MACROCYTOSIS 0; OVALOCYTE 1+; PLATELET ESTIMATE NORMAL; TARGET CELLS 1+
[2021-10-24] MEDS ORDERED: ONDANSETRON 4 MG/2 ML VIAL IVPUSH ONE (20:41)
[2021-10-24 20:48] LABS: BLOOD UREA NITROGEN 74.5 mg/dL (7-18); GLUCOSE,RANDOM 425 mg/dL (74-106)
[2021-10-24] MEDS ORDERED: INSULIN (NOVOLOG) ASPART 100 UNITS/ML 10ML VIAL SQ ONE (20:50)
[2021-10-24 20:53] LABS: BILIRUBIN,TOTAL 0.2 mg/dL (0.2-1)
[2021-10-24] MEDS ORDERED: PANTOPRAZOLE SODIUM 40 MG/100 ML BAG IVPB ONE (20:55)
[2021-10-24] MEDS ORDERED: ONDANSETRON 4 MG/2 ML VIAL ONE (20:56)
[2021-10-24] MEDS: PANTOPRAZOLE SODIUM 80 MG in SODIUM CHLORIDE 100 ML IVPB SCH (21:56)
[2021-10-24] MEDS ORDERED: MUPIROCIN 2% TOPICAL OINTMENT FOR DECOLONIZATION NS SCH (22:00)
[2021-10-24] MEDS ORDERED: CHLORHEXIDINE GLUCONATE 4% CLEANSER FOR DECOLONIZATION TP SCH (22:00)
[2021-10-25] MEDS ORDERED: MAG HYDROX/AL HYDROX/SIMETH 30 ML UNIT-DOSE CUP PO PRN (04:13)
[2021-10-25] MEDS ORDERED: POLYETHYLENE GLYCOL (HEALTHYLAX) 3350 17 GM PACKET PO PRN (04:13)
[2021-10-25] MEDS: PANTOPRAZOLE SODIUM 80 MG in SODIUM CHLORIDE 100 ML IVPB SCH ×2 (06:34→17:02)
[2021-10-25] MEDS: INSULIN SLIDING SCALE (NOVOLOG) 1 VIAL SQ SCH ×4 (06:35→21:21)
[2021-10-25] MEDS ORDERED: LEVOTHYROXINE NA 25 MCG TABLET (FP) ONE (06:37)
[2021-10-25] MEDS ORDERED: LEVOTHYROXINE NA 112 MCG TABLET (FP) ONE (06:37)
[2021-10-25] MEDS: LEVOTHYROXINE 112 MCG, LEVOTHYROXINE 25 MCG PO SCH ×3 (06:39→10:59)
[2021-10-25] MEDS: TORSEMIDE 20 MG TABLET (FP) PO SCH ×3 (06:39→15:00)
[2021-10-25] MEDS ORDERED: LEVOTHYROXINE NA 25 MCG TABLET (FP) PO SCH (07:00)
[2021-10-25 07:45] LABS: VENOUS BASE EXCESS -2.7 mmol/L (-2-2)
[2021-10-25 07:48] LABS: VENOUS PH 7.344 (7.310-7.410)
[2021-10-25 07:49] LABS: VENOUS O2 SATURATION 28.6 % (70-80)
[2021-10-25 07:50] LABS: HEMATOCRIT 22.7 % (32.4-45.2); HEMOGLOBIN 7.9 GM/dL (10.7-15.3); MCH 29.7 pg (25.7-33.7); MCHC 34.9 g/dl (32.0-36.0); MEAN PLT VOLUME 7.5 fl (7.5-11.1); PLATELET COUNT 279 10^3/uL (134-434); RBC 2.67 M/mm3 (3.60-5.2); RDW 16.1 % (11.6-15.6); WHITE BLOOD COUNT 8.2 K/mm3 (4.0-10.0)
[2021-10-25 08:18] LABS: BLOOD UREA NITROGEN 79.2 mg/dL (7-18); CALCIUM 7.7 mg/dL (8.5-10.1)
[2021-10-25 08:19] LABS: ALBUMIN 1.8 g/dl (3.4-5.0)
[2021-10-25 08:21] LABS: CREATININE 1.3 mg/dL (0.55-1.3); PHOSPHOROUS 3.2 mg/dL (2.5-4.9)
[2021-10-25 08:23] LABS: BILIRUBIN,TOTAL 0.6 mg/dL (0.2-1); TOT PROT 5.5 g/dl (6.4-8.2)
[2021-10-25] MEDS: ALBUTEROL SO4 2.5/IPRATROPIUM 0.5 INH SOL 3 ML VIAL.NEB. NEB SCH ×4 (08:30→20:10)
[2021-10-25 09:05] LABS: ANISOCYTOSIS 0; MACROCYTOSIS 0; PLATELET ESTIMATE NORMAL
[2021-10-25] MEDS ORDERED: PT OWN MED DRAWER 7, Y5N ONE ×3 (09:36→12:45)
[2021-10-25] MEDS: amLODIPine BESYLATE 10 MG TABLET (FP) PO SCH (10:52)
[2021-10-25] MEDS: CARVEDILOL 12.5 MG TABLET (FP) PO SCH ×2 (10:52→21:19)
[2021-10-25] MEDS: MUPIROCIN 2% TOPICAL OINTMENT FOR DECOLONIZATION NS SCH ×2 (12:49→21:09)
[2021-10-25] MEDS: busPIRone HCL 10 MG TABLET (FP) PO SCH ×2 (12:49→21:55)
[2021-10-25] MEDS: INSULIN (NOVOLOG) ASPART 100 UNITS/ML 10ML VIAL SQ SCH ×2 (15:00→17:04)
[2021-10-25 16:42] LABS: HEMATOCRIT 17.3 % (32.4-45.2); MCH 28.9 pg (25.7-33.7); MCHC 33.8 g/dl (32.0-36.0); MEAN CELL VOLUME 85.5 fl (80-96); MEAN PLT VOLUME 7.2 fl (7.5-11.1); PLATELET COUNT 229 10^3/uL (134-434); RBC 2.02 M/mm3 (3.60-5.2); RDW 16.2 % (11.6-15.6); WHITE BLOOD COUNT 10.3 K/mm3 (4.0-10.0)
[2021-10-25 16:55] LABS: HEMOGLOBIN 5.8 GM/dL (10.7-15.3)
[2021-10-25] MEDS: CHLORHEXIDINE GLUCONATE 4% CLEANSER FOR DECOLONIZATION TP SCH (21:09)
[2021-10-25] MEDS: ATORVASTATIN CA 40 MG TABLET (FP) PO SCH (21:19)
[2021-10-25] MEDS: INSULIN (LEVEMIR) 100 UNITS/ML UNITS SQ SCH (21:20)
[2021-10-26] MEDS: PANTOPRAZOLE SODIUM 80 MG in SODIUM CHLORIDE 100 ML IVPB SCH ×2 (03:16→16:00)
[2021-10-26] MEDS ORDERED: LEVOTHYROXINE NA 112 MCG TABLET (FP) ONE (05:53)
[2021-10-26] MEDS ORDERED: LEVOTHYROXINE NA 25 MCG TABLET (FP) ONE (05:54)
[2021-10-26] MEDS: LEVOTHYROXINE 112 MCG, LEVOTHYROXINE 25 MCG PO SCH (06:19)
[2021-10-26] MEDS: TORSEMIDE 20 MG TABLET (FP) PO SCH ×2 (06:19→15:00)
[2021-10-26] MEDS: INSULIN SLIDING SCALE (NOVOLOG) 1 VIAL SQ SCH ×4 (06:44→21:22)
[2021-10-26 07:23] LABS: HEMATOCRIT 24.7 % (32.4-45.2); HEMOGLOBIN 8.6 GM/dL (10.7-15.3); MCH 28.9 pg (25.7-33.7); MCHC 34.7 g/dl (32.0-36.0); MEAN CELL VOLUME 83.3 fl (80-96); MEAN PLT VOLUME 7.4 fl (7.5-11.1); PLATELET COUNT 229 10^3/uL (134-434); RBC 2.96 M/mm3 (3.60-5.2); RDW 15.7 % (11.6-15.6)
[2021-10-26 07:44] LABS: ALBUMIN 1.8 g/dl (3.4-5.0); BLOOD UREA NITROGEN 72.1 mg/dL (7-18); CALCIUM 7.9 mg/dL (8.5-10.1); MAGNESIUM 1.9 mg/dL (1.8-2.4)
[2021-10-26 07:47] LABS: CREATININE 1.2 mg/dL (0.55-1.3)
[2021-10-26 07:48] LABS: PHOSPHOROUS 3.3 mg/dL (2.5-4.9)
[2021-10-26 07:49] LABS: TOT PROT 5.3 g/dl (6.4-8.2)
[2021-10-26] MEDS: ALBUTEROL SO4 2.5/IPRATROPIUM 0.5 INH SOL 3 ML VIAL.NEB. NEB SCH ×4 (07:55→19:51)
[2021-10-26] MEDS ORDERED: PT OWN MED DRAWER 7, Y5N ONE ×2 (09:39→21:06)
[2021-10-26] MEDS: MUPIROCIN 2% TOPICAL OINTMENT FOR DECOLONIZATION NS SCH ×2 (09:53→21:24)
[2021-10-26] MEDS: busPIRone HCL 10 MG TABLET (FP) PO SCH ×2 (15:00→22:45)
[2021-10-26] MEDS: amLODIPine BESYLATE 10 MG TABLET (FP) PO SCH (15:01)
[2021-10-26] MEDS: CHOLECALCIFEROL (VIT D3) 1,000 UNIT (25 MCG) TABLET PO SCH (15:02)
[2021-10-26] MEDS: CARVEDILOL 12.5 MG TABLET (FP) PO SCH ×2 (15:02→21:24)
[2021-10-26] MEDS: ATORVASTATIN CA 40 MG TABLET (FP) PO SCH (21:23)
[2021-10-26] MEDS: CHLORHEXIDINE GLUCONATE 4% CLEANSER FOR DECOLONIZATION TP SCH (21:24)
[2021-10-26] MEDS: INSULIN (LEVEMIR) 100 UNITS/ML UNITS SQ SCH (21:25)
[2021-10-27] MEDS: PANTOPRAZOLE SODIUM 80 MG in SODIUM CHLORIDE 100 ML IVPB SCH ×3 (00:09→19:19)
[2021-10-27] MEDS ORDERED: LEVOTHYROXINE NA 112 MCG TABLET (FP) ONE (05:00)
[2021-10-27] MEDS ORDERED: LEVOTHYROXINE NA 25 MCG TABLET (FP) ONE (05:01)
[2021-10-27] MEDS: TORSEMIDE 20 MG TABLET (FP) PO SCH ×2 (05:03→13:43)
[2021-10-27] MEDS: LEVOTHYROXINE 112 MCG, LEVOTHYROXINE 25 MCG PO SCH (06:12)
[2021-10-27] MEDS: INSULIN SLIDING SCALE (NOVOLOG) 1 VIAL SQ SCH ×4 (06:22→21:18)
[2021-10-27] MEDS ORDERED: PT OWN MED DRAWER 7, Y5N ONE (07:00)
[2021-10-27] MEDS: ALBUTEROL SO4 2.5/IPRATROPIUM 0.5 INH SOL 3 ML VIAL.NEB. NEB SCH ×4 (08:15→20:51)
[2021-10-27] MEDS: CARVEDILOL 12.5 MG TABLET (FP) PO SCH ×2 (09:30→21:09)
[2021-10-27] MEDS: amLODIPine BESYLATE 10 MG TABLET (FP) PO SCH (09:30)
[2021-10-27] MEDS: CHOLECALCIFEROL (VIT D3) 1,000 UNIT (25 MCG) TABLET PO SCH (09:31)
[2021-10-27] MEDS: MUPIROCIN 2% TOPICAL OINTMENT FOR DECOLONIZATION NS SCH ×2 (09:33→21:09)
[2021-10-27] MEDS: busPIRone HCL 10 MG TABLET (FP) PO SCH ×2 (09:33→21:09)
[2021-10-27] MEDS: CHLORHEXIDINE GLUCONATE 4% CLEANSER FOR DECOLONIZATION TP SCH (21:09)
[2021-10-27] MEDS: ATORVASTATIN CA 40 MG TABLET (FP) PO SCH (21:09)
[2021-10-27] MEDS: INSULIN (LEVEMIR) 100 UNITS/ML UNITS SQ SCH (21:10)
[2021-10-28] MEDS ORDERED: LEVOTHYROXINE NA 25 MCG TABLET (FP) ONE (05:55)
[2021-10-28] MEDS ORDERED: LEVOTHYROXINE NA 112 MCG TABLET (FP) ONE (05:55)
[2021-10-28] MEDS: LEVOTHYROXINE 112 MCG, LEVOTHYROXINE 25 MCG PO SCH (06:53)
[2021-10-28] MEDS: TORSEMIDE 20 MG TABLET (FP) PO SCH ×2 (06:53→13:22)
[2021-10-28] MEDS: INSULIN SLIDING SCALE (NOVOLOG) 1 VIAL SQ SCH ×4 (06:53→21:26)
[2021-10-28] MEDS: ALBUTEROL SO4 2.5/IPRATROPIUM 0.5 INH SOL 3 ML VIAL.NEB. NEB SCH ×4 (07:25→20:32)
[2021-10-28] MEDS ORDERED: PT OWN MED DRAWER 7, Y5N ONE ×2 (09:22→21:20)
[2021-10-28] MEDS: CHOLECALCIFEROL (VIT D3) 1,000 UNIT (25 MCG) TABLET PO SCH (09:23)
[2021-10-28] MEDS: CARVEDILOL 12.5 MG TABLET (FP) PO SCH ×2 (09:23→21:22)
[2021-10-28] MEDS: busPIRone HCL 10 MG TABLET (FP) PO SCH ×2 (09:24→21:22)
[2021-10-28] MEDS: amLODIPine BESYLATE 10 MG TABLET (FP) PO SCH (09:24)
[2021-10-28] MEDS: MUPIROCIN 2% TOPICAL OINTMENT FOR DECOLONIZATION NS SCH ×2 (09:25→21:22)
[2021-10-28 13:07] LABS: BASO % 0.6 % (0-2.0); EOS % 2.5 % (0-4.5); HEMATOCRIT 24.5 % (32.4-45.2); HEMOGLOBIN 8.2 GM/dL (10.7-15.3); LYMPH % 17.9 % (8-40); MCH 28.7 pg (25.7-33.7); MCHC 33.7 g/dl (32.0-36.0); MEAN CELL VOLUME 85.2 fl (80-96); MEAN PLT VOLUME 7.2 fl (7.5-11.1); MONO % 6.1 % (3.8-10.2); NEUT % 72.9 % (42.8-82.8); PLATELET COUNT 240 10^3/uL (134-434); RBC 2.87 M/mm3 (3.60-5.2); WHITE BLOOD COUNT 7.3 K/mm3 (4.0-10.0)
[2021-10-28] MEDS ORDERED: ACETAMINOPHEN 325 MG TABLET (FP) PO PRN (17:42)
[2021-10-28] MEDS: WARFARIN NA 5 MG TABLET PO SCH (17:51)
[2021-10-28] MEDS: CHLORHEXIDINE GLUCONATE 4% CLEANSER FOR DECOLONIZATION TP SCH (21:22)
[2021-10-28] MEDS: ATORVASTATIN CA 40 MG TABLET (FP) PO SCH (21:22)
[2021-10-28] MEDS: INSULIN (LEVEMIR) 100 UNITS/ML UNITS SQ SCH (21:22)
[2021-10-29] MEDS ORDERED: PT OWN MED DRAWER 7, Y5N ONE (05:41)
[2021-10-29] MEDS ORDERED: LEVOTHYROXINE NA 25 MCG TABLET (FP) ONE (05:41)
[2021-10-29] MEDS ORDERED: LEVOTHYROXINE NA 112 MCG TABLET (FP) ONE (05:41)
[2021-10-29] MEDS: TORSEMIDE 20 MG TABLET (FP) PO SCH ×2 (05:43→15:02)
[2021-10-29] MEDS: INSULIN SLIDING SCALE (NOVOLOG) 1 VIAL SQ SCH ×4 (06:01→21:46)
[2021-10-29] MEDS: LEVOTHYROXINE 112 MCG, LEVOTHYROXINE 25 MCG PO SCH (06:01)
[2021-10-29] MEDS: ALBUTEROL SO4 2.5/IPRATROPIUM 0.5 INH SOL 3 ML VIAL.NEB. NEB SCH ×4 (07:20→20:35)
[2021-10-29 07:30] LABS: HEMATOCRIT 24.8 % (32.4-45.2); HEMOGLOBIN 8.5 GM/dL (10.7-15.3); MCH 29.1 pg (25.7-33.7); MCHC 34.2 g/dl (32.0-36.0); MEAN CELL VOLUME 85.2 fl (80-96); MEAN PLT VOLUME 7.3 fl (7.5-11.1); PLATELET COUNT 239 10^3/uL (134-434); RBC 2.91 M/mm3 (3.60-5.2); RDW 17.3 % (11.6-15.6); WHITE BLOOD COUNT 7.4 K/mm3 (4.0-10.0)
[2021-10-29 07:38] LABS: INR 1.03 (0.83-1.09); PROTHROMBIN TIME (PATIENT) 12.1 SEC (9.7-13.0)
[2021-10-29] MEDS: CHOLECALCIFEROL (VIT D3) 1,000 UNIT (25 MCG) TABLET PO SCH (10:12)
[2021-10-29] MEDS: CARVEDILOL 12.5 MG TABLET (FP) PO SCH ×2 (10:12→21:41)
[2021-10-29] MEDS: amLODIPine BESYLATE 10 MG TABLET (FP) PO SCH (10:12)
[2021-10-29] MEDS: busPIRone HCL 10 MG TABLET (FP) PO SCH ×2 (10:12→21:42)
[2021-10-29] MEDS ORDERED: MAG HYDROX/AL HYDROX/SIMETH 30 ML UNIT-DOSE CUP PO PRN (10:17)
[2021-10-29] MEDS ORDERED: POLYETHYLENE GLYCOL (HEALTHYLAX) 3350 17 GM PACKET PO PRN (10:17)
[2021-10-29 10:56] LABS: ANISOCYTOSIS 2+; MACROCYTOSIS 1+; OVALOCYTE 1+; PLATELET ESTIMATE NORMAL
[2021-10-29 16:05] VITALS: BMI 27.4
[2021-10-29] MEDS: WARFARIN NA 5 MG TABLET PO SCH (17:22)
[2021-10-29] MEDS: ATORVASTATIN CA 40 MG TABLET (FP) PO SCH (21:41)
[2021-10-29] MEDS: CHLORHEXIDINE GLUCONATE 4% CLEANSER FOR DECOLONIZATION TP SCH (21:42)
[2021-10-29] MEDS: INSULIN (LEVEMIR) 100 UNITS/ML UNITS SQ SCH (21:45)
[2021-10-29] MEDS ORDERED: MUPIROCIN 2% TOPICAL OINTMENT FOR DECOLONIZATION NS SCH (22:00)
[2021-10-30] MEDS ORDERED: LEVOTHYROXINE NA 112 MCG TABLET (FP) ONE (06:18)
[2021-10-30] MEDS: INSULIN SLIDING SCALE (NOVOLOG) 1 VIAL SQ SCH ×4 (06:18→21:12)
[2021-10-30] MEDS ORDERED: PT OWN MED DRAWER 7, Y5N ONE ×3 (06:19→21:03)
[2021-10-30] MEDS ORDERED: LEVOTHYROXINE NA 25 MCG TABLET (FP) ONE (06:19)
[2021-10-30] MEDS: TORSEMIDE 20 MG TABLET (FP) PO SCH ×2 (06:20→16:49)
[2021-10-30] MEDS: LEVOTHYROXINE 112 MCG, LEVOTHYROXINE 25 MCG PO SCH (06:20)
[2021-10-30] MEDS: ALBUTEROL SO4 2.5/IPRATROPIUM 0.5 INH SOL 3 ML VIAL.NEB. NEB SCH ×4 (07:50→20:16)
[2021-10-30 09:04] LABS: BASO % 0.7 % (0-2.0); EOS % 1.9 % (0-4.5); HEMATOCRIT 26.9 % (32.4-45.2); HEMOGLOBIN 9.3 GM/dL (10.7-15.3); LYMPH % 15.5 % (8-40); MCH 29.7 pg (25.7-33.7); MCHC 34.4 g/dl (32.0-36.0); MEAN CELL VOLUME 86.2 fl (80-96); MEAN PLT VOLUME 7.5 fl (7.5-11.1); MONO % 6.3 % (3.8-10.2); NEUT % 75.6 % (42.8-82.8); PLATELET COUNT 273 10^3/uL (134-434); RBC 3.12 M/mm3 (3.60-5.2); RDW 17.8 % (11.6-15.6); WHITE BLOOD COUNT 8.4 K/mm3 (4.0-10.0)
[2021-10-30 09:12] LABS: INR 1.1 (0.83-1.09); PROTHROMBIN TIME (PATIENT) 12.9 SEC (9.7-13.0)
[2021-10-30 09:26] LABS: CALCIUM 7.7 mg/dL (8.5-10.1)
[2021-10-30 09:27] LABS: ALBUMIN 2.1 g/dl (3.4-5.0)
[2021-10-30 09:31] LABS: BILIRUBIN,TOTAL 0.5 mg/dL (0.2-1); CREATININE 1.2 mg/dL (0.55-1.3); TOT PROT 6.2 g/dl (6.4-8.2)
[2021-10-30] MEDS: busPIRone HCL 10 MG TABLET (FP) PO SCH ×2 (09:47→21:05)
[2021-10-30] MEDS: MULTIVIT-MINERALS ORAL LIQUID PO SCH (09:47)
[2021-10-30] MEDS: amLODIPine BESYLATE 10 MG TABLET (FP) PO SCH (09:49)
[2021-10-30] MEDS: CHOLECALCIFEROL (VIT D3) 1,000 UNIT (25 MCG) TABLET PO SCH (09:49)
[2021-10-30] MEDS: PANTOPRAZOLE 40 MG TABLET PO SCH (09:49)
[2021-10-30] MEDS: CARVEDILOL 12.5 MG TABLET (FP) PO SCH ×2 (09:49→21:05)
[2021-10-30 11:12] LABS: ANISOCYTOSIS 1+; MACROCYTOSIS 1+; OVALOCYTE 1+; PLATELET ESTIMATE NORMAL
[2021-10-30] MEDS: WARFARIN NA 5 MG TABLET PO SCH (17:35)
[2021-10-30] MEDS: CHLORHEXIDINE GLUCONATE 4% CLEANSER FOR DECOLONIZATION TP SCH (21:05)
[2021-10-30] MEDS: ATORVASTATIN CA 40 MG TABLET (FP) PO SCH (21:05)
[2021-10-30] MEDS: INSULIN (LEVEMIR) 100 UNITS/ML UNITS SQ SCH (21:06)
[2021-10-31] MEDS: TORSEMIDE 20 MG TABLET (FP) PO SCH ×2 (05:50→15:45)
[2021-10-31] MEDS ORDERED: PT OWN MED DRAWER 7, Y5N ONE ×3 (05:51→17:26)
[2021-10-31] MEDS ORDERED: LEVOTHYROXINE NA 112 MCG TABLET (FP) ONE (05:53)
[2021-10-31] MEDS ORDERED: LEVOTHYROXINE NA 25 MCG TABLET (FP) ONE (05:53)
[2021-10-31] MEDS: LEVOTHYROXINE 112 MCG, LEVOTHYROXINE 25 MCG PO SCH (06:00)
[2021-10-31] MEDS: INSULIN SLIDING SCALE (NOVOLOG) 1 VIAL SQ SCH ×4 (06:00→21:38)
[2021-10-31] MEDS: ALBUTEROL SO4 2.5/IPRATROPIUM 0.5 INH SOL 3 ML VIAL.NEB. NEB SCH ×4 (08:00→20:39)
[2021-10-31 08:18] LABS: HEMATOCRIT 25.9 % (32.4-45.2); HEMOGLOBIN 8.9 GM/dL (10.7-15.3); MCH 29.8 pg (25.7-33.7); MCHC 34.5 g/dl (32.0-36.0); MEAN CELL VOLUME 86.4 fl (80-96); MEAN PLT VOLUME 7.8 fl (7.5-11.1); PLATELET COUNT 264 10^3/uL (134-434); RDW 18.8 % (11.6-15.6); WHITE BLOOD COUNT 7.7 K/mm3 (4.0-10.0)
[2021-10-31 08:31] LABS: INR 1.18 (0.83-1.09); PROTHROMBIN TIME (PATIENT) 13.2 SEC (9.7-13.0)
[2021-10-31 08:45] LABS: BLOOD UREA NITROGEN 36.8 mg/dL (7-18)
[2021-10-31 08:46] LABS: CALCIUM 7.7 mg/dL (8.5-10.1)
[2021-10-31 08:47] LABS: BILIRUBIN,TOTAL 0.3 mg/dL (0.2-1); TOT PROT 6.1 g/dl (6.4-8.2)
[2021-10-31] MEDS: busPIRone HCL 10 MG TABLET (FP) PO SCH ×2 (09:33→21:24)
[2021-10-31] MEDS: MULTIVIT-MINERALS ORAL LIQUID PO SCH (09:33)
[2021-10-31] MEDS: amLODIPine BESYLATE 10 MG TABLET (FP) PO SCH (09:34)
[2021-10-31] MEDS: PANTOPRAZOLE 40 MG TABLET PO SCH (09:34)
[2021-10-31] MEDS: CHOLECALCIFEROL (VIT D3) 1,000 UNIT (25 MCG) TABLET PO SCH (09:34)
[2021-10-31] MEDS: CARVEDILOL 12.5 MG TABLET (FP) PO SCH ×2 (09:34→21:24)
[2021-10-31] MEDS ORDERED: ENOXAPARIN NA (PORCINE) 40 MG/0.4 ML DISP.SYRIN SQ SCH (17:30)
[2021-10-31] MEDS ORDERED: WARFARIN NA 2.5 MG TABLET PO SCH (18:00)
[2021-10-31] MEDS: ENOXAPARIN NA (PORCINE) 40 MG/0.4 ML DISP.SYRIN SQ SCH (18:41)
[2021-10-31] MEDS: CHLORHEXIDINE GLUCONATE 4% CLEANSER FOR DECOLONIZATION TP SCH (21:24)
[2021-10-31] MEDS: ATORVASTATIN CA 40 MG TABLET (FP) PO SCH (21:24)
[2021-10-31] MEDS: INSULIN (LEVEMIR) 100 UNITS/ML UNITS SQ SCH (21:25)
[2021-11-01] MEDS: TORSEMIDE 20 MG TABLET (FP) PO SCH ×2 (05:35→14:32)
[2021-11-01] MEDS ORDERED: LEVOTHYROXINE NA 112 MCG TABLET (FP) ONE (05:36)
[2021-11-01] MEDS ORDERED: LEVOTHYROXINE NA 25 MCG TABLET (FP) ONE (05:36)
[2021-11-01] MEDS: LEVOTHYROXINE 112 MCG, LEVOTHYROXINE 25 MCG PO SCH (06:02)
[2021-11-01] MEDS: INSULIN SLIDING SCALE (NOVOLOG) 1 VIAL SQ SCH ×3 (06:02→16:43)
[2021-11-01 07:28] LABS: HEMATOCRIT 26.5 % (32.4-45.2); MCH 29.4 pg (25.7-33.7); MCHC 33.9 g/dl (32.0-36.0); MEAN CELL VOLUME 86.6 fl (80-96); MEAN PLT VOLUME 7.7 fl (7.5-11.1); PLATELET COUNT 338 10^3/uL (134-434); RBC 3.06 M/mm3 (3.60-5.2); RDW 18.3 % (11.6-15.6); WHITE BLOOD COUNT 7.7 K/mm3 (4.0-10.0)
[2021-11-01 07:33] LABS: INR 1.22 (0.83-1.09); PROTHROMBIN TIME (PATIENT) 13.7 SEC (9.7-13.0)
[2021-11-01] MEDS: ALBUTEROL SO4 2.5/IPRATROPIUM 0.5 INH SOL 3 ML VIAL.NEB. NEB SCH ×3 (07:50→15:55)
[2021-11-01] MEDS ORDERED: PT OWN MED DRAWER 7, Y5N ONE (09:26)
[2021-11-01] MEDS: CHOLECALCIFEROL (VIT D3) 1,000 UNIT (25 MCG) TABLET PO SCH (09:38)
[2021-11-01] MEDS: PANTOPRAZOLE 40 MG TABLET PO SCH (09:38)
[2021-11-01] MEDS: MULTIVIT-MINERALS ORAL LIQUID PO SCH (09:38)
[2021-11-01] MEDS: amLODIPine BESYLATE 10 MG TABLET (FP) PO SCH (09:38)
[2021-11-01] MEDS: CARVEDILOL 12.5 MG TABLET (FP) PO SCH (09:38)
[2021-11-01] MEDS: busPIRone HCL 10 MG TABLET (FP) PO SCH (09:38)
[2021-11-01] MEDS: ENOXAPARIN NA (PORCINE) 40 MG/0.4 ML DISP.SYRIN SQ SCH (09:39)
[2021-11-01 16:57] VITALS: BP 136/62; PULSE 72; TEMP 97.9
== END 2021-11-01 18:55 | DRG 813 ==
LOC: JER 18:24 → JERBED 20:40 → JICU 23:52
PROVIDERS: ATTEND Family Medicine
PROC: 30233K1 Transfusion of Nonautologous Frozen Plasma into Peripheral Vein, Percutaneous Approach (ICD-10-PCS; principal; 2021-10-25)
PROC: 30233N1 Transfusion of Nonautologous Red Blood Cells into Peripheral Vein, Percutaneous Approach (ICD-10-PCS; 2021-10-25)
PROC: 0DJ08ZZ Inspection of Upper Intestinal Tract, Via Natural or Artificial Opening Endoscopic (ICD-10-PCS; 2021-10-26)
PROC: 30233R1 Transfusion of Nonautologous Platelets into Peripheral Vein, Percutaneous Approach (ICD-10-PCS; 2021-10-31)
DX: D68.32 Hemorrhagic disorder due to extrinsic circulating anticoagulants (principal); K92.2 Gastrointestinal hemorrhage, unspecified; I50.22 Chronic systolic (congestive) heart failure; D62 Acute posthemorrhagic anemia; I31.3 Pericardial effusion (noninflammatory); I82.543 Chronic embolism and thrombosis of tibial vein, bilateral; I25.10 Atherosclerotic heart disease of native coronary artery without angina pectoris; K21.9 Gastro-esophageal reflux disease without esophagitis; F03.90 Unspecified dementia, unspecified severity, without behavioral disturbance, psychotic disturbance, mood disturbance, and anxiety; D64.9 Anemia, unspecified; E03.9 Hypothyroidism, unspecified; I27.20 Pulmonary hypertension, unspecified; E11.42 Type 2 diabetes mellitus with diabetic polyneuropathy; F41.8 Other specified anxiety disorders; E78.00 Pure hypercholesterolemia, unspecified; I11.0 Hypertensive heart disease with heart failure; I77.819 Aortic ectasia, unspecified site; Z86.73 Personal history of transient ischemic attack (TIA), and cerebral infarction without residual deficits
CPT/HCPCS: 36415; 36430; 36511; 71045-TC-FY; 80053; 82010; 82272; 82550; 82803; 82962; 83605; 83735; 84100; 84484; 85025; 85027; 85610; 85730; 86850; 86900; 86901; 86922; 93005; 93010; 94640; 99291; C9803; P9017; P9034; P9038; P9058; U0003; U0005

== ENCOUNTER 2022-04-26 18:51 | Inpatient (IN) | payer OTHER ==
[2022-04-26 19:37] VITALS: BMI 22.3
[2022-04-26] MEDS ORDERED: DEXAMETHASONE SOD PHOSPHATE 10 MG/1 ML VIAL IVPUSH ONE (19:41)
[2022-04-26] MEDS ORDERED: DEXAMETHASONE SOD PHOSPHATE 10 MG/1 ML VIAL ONE (19:45)
[2022-04-26] MEDS ORDERED: ALBUTEROL SO4 2.5/IPRATROPIUM 0.5 INH SOL 3 ML VIAL.NEB. NEB ONE (19:45)
[2022-04-26] MEDS: ALBUTEROL SO4 2.5/IPRATROPIUM 0.5 INH SOL 3 ML VIAL.NEB. NEB SCH ×4 (20:16→21:05)
[2022-04-26] MEDS ORDERED: FUROSEMIDE 40 MG/4 ML INJECTABLE VIAL IVPUSH ONE (20:29)
[2022-04-26] MEDS ORDERED: FUROSEMIDE 40 MG/4 ML INJECTABLE VIAL ONE (20:38)
[2022-04-26 20:41] LABS: BASO % 0.8 % (0-2.0); EOS % 2.8 % (0-4.5); LYMPH % 22.6 % (8-40); MCH 28.1 pg (25.7-33.7); MCHC 32.3 g/dl (32.0-36.0); MEAN CELL VOLUME 86.9 fl (80-96); MEAN PLT VOLUME 7.4 fl (7.5-11.1); MONO % 7.2 % (3.8-10.2); NEUT % 66.6 % (42.8-82.8); PLATELET COUNT 340 10^3/uL (134-434); RBC 3.91 M/mm3 (3.60-5.2); WHITE BLOOD COUNT 5.8 K/mm3 (4.0-10.0)
[2022-04-26 20:44] LABS: INR 1.31 (0.83-1.09); PROTHROMBIN TIME (PATIENT) 15.1 SEC (9.7-13.0)
[2022-04-26 20:47] LABS: ACTIVATED PTT 34.3 SECONDS (25.2-36.5)
[2022-04-26 20:58] LABS: CHLORIDE 104 mmol/L (98-107); SODIUM 135 mmol/L (136-145)
[2022-04-26 21:00] LABS: ALBUMIN 2.8 g/dl (3.4-5.0); BLOOD UREA NITROGEN 40.2 mg/dL (7-18); CALCIUM 8.6 mg/dL (8.5-10.1); CO2 26 mmol/L (21-32); GLUCOSE,RANDOM 150 mg/dL (74-106)
[2022-04-26 21:03] LABS: SGOT/AST 53 U/L (15-37); SGPT/ALT 27 U/L (13-61)
[2022-04-26 21:04] LABS: CREATININE 1.3 mg/dL (0.55-1.3)
[2022-04-26 21:05] LABS: BILIRUBIN,TOTAL 0.5 mg/dL (0.2-1); TOT PROT 7.6 g/dl (6.4-8.2)
[2022-04-26 21:06] LABS: ALK PHOS 130 U/L (45-117)
[2022-04-26 21:43] LABS: ANION GAP 5 MMOL/L (8-16)
[2022-04-26] MEDS ORDERED: PIPERACILLIN/TAZOB 4.5 GM 4.5 GM in DEXTROSE 5%-WATER 100 ML IVPB ONE (21:44)
[2022-04-26] MEDS ORDERED: VANCOMYCIN 1 GM in D5W (PRE-DOCKED) 1,000 MG/250 ML IVPB ONE (21:45)
[2022-04-26] MEDS ORDERED: PIPERACILLIN/TAZOB 4.5 GM 4.5 GM/100 ML BAG IVPB ONE (22:53)
[2022-04-26] MEDS ORDERED: VANCOMYCIN 1 GRAM (PRE-DOCKED) 1,000 MG/250 ML BAG IVPB ONE (23:43)
[2022-04-26 23:45] LABS: CHLORIDE 105 mmol/L (98-107); SODIUM 137 mmol/L (136-145)
[2022-04-26 23:46] LABS: CALCIUM 8.3 mg/dL (8.5-10.1)
[2022-04-26 23:47] LABS: ANION GAP 6 MMOL/L (8-16); BLOOD UREA NITROGEN 41.2 mg/dL (7-18); CO2 25 mmol/L (21-32); GLUCOSE,RANDOM 134 mg/dL (74-106)
[2022-04-26 23:50] LABS: CREATININE 1.3 mg/dL (0.55-1.3)
[2022-04-26] MEDS ORDERED: ZOLPIDEM TARTRATE 5 MG TABLET PO ONE (23:55)
[2022-04-26] MEDS ORDERED: ZOLPIDEM TARTRATE 5 MG TABLET ONE (23:56)
[2022-04-27] MEDS ORDERED: POLYETHYLENE GLYCOL (HEALTHYLAX) 3350 17 GM PACKET PO PRN (02:56)
[2022-04-27] MEDS ORDERED: MAG HYDROX/AL HYDROX/SIMETH 30 ML UNIT-DOSE CUP PO PRN (02:56)
[2022-04-27] MEDS ORDERED: TORSEMIDE 20 MG TABLET (FP) PO SCH (06:00)
[2022-04-27] MEDS ORDERED: LEVOTHYROXINE NA 25 MCG TABLET (FP) PO SCH (07:00)
[2022-04-27] MEDS ORDERED: ALBUTEROL SO4 2.5/IPRATROPIUM 0.5 INH SOL 3 ML VIAL.NEB. NEB ONE ×2 (08:38→19:00)
[2022-04-27] MEDS: ALBUTEROL SO4 2.5/IPRATROPIUM 0.5 INH SOL 3 ML VIAL.NEB. NEB PRN ×2 (08:41→19:02)
[2022-04-27] MEDS ORDERED: PANTOPRAZOLE 40 MG TABLET PO ONE (08:45)
[2022-04-27] MEDS ORDERED: CHOLECALCIFEROL (VIT D3) 1,000 UNIT (25 MCG) TABLET ONE (08:46)
[2022-04-27] MEDS ORDERED: CARVEDILOL 25 MG TABLET (FP) ONE ×2 (08:46→22:41)
[2022-04-27] MEDS ORDERED: FERROUS SO4 325 MG TABLET (FP) ONE (08:46)
[2022-04-27] MEDS ORDERED: glipiZIDE 5 MG TABLET (FP) ONE (08:54)
[2022-04-27] MEDS: glipiZIDE 5 MG TABLET (FP) PO SCH (09:14)
[2022-04-27] MEDS: LEVOTHYROXINE 112 MCG, LEVOTHYROXINE 25 MCG PO SCH (09:14)
[2022-04-27] MEDS: INSULIN SLIDING SCALE (NOVOLOG) 1 VIAL SQ SCH ×4 (09:15→23:01)
[2022-04-27] MEDS: SIMETHICONE 80 MG TAB.CHEW (FP) PO SCH ×3 (10:00→18:35)
[2022-04-27] MEDS ORDERED: SIMETHICONE 80 MG TAB.CHEW (FP) ONE ×2 (10:15→18:33)
[2022-04-27] MEDS: CARVEDILOL 25 MG TABLET (FP) PO SCH ×2 (11:08→22:51)
[2022-04-27] MEDS: FERROUS SO4 325 MG TABLET (FP) PO SCH (11:08)
[2022-04-27] MEDS: busPIRone HCL 10 MG TABLET (FP) PO SCH ×2 (11:08→22:51)
[2022-04-27] MEDS: CHOLECALCIFEROL (VIT D3) 1,000 UNIT (25 MCG) TABLET PO SCH (11:09)
[2022-04-27] MEDS: MULTIVITAMINS THER W-MINERALS COMBO TABLET (FP) PO SCH (11:09)
[2022-04-27] MEDS: PANTOPRAZOLE 40 MG TABLET PO SCH (11:09)
[2022-04-27] MEDS: methylPREDNISolone NA SUCC 40 MG/1 ML VIAL IVPUSH SCH ×2 (13:36→18:30)
[2022-04-27] MEDS: FUROSEMIDE 40 MG/4 ML INJECTABLE VIAL IVPUSH SCH (13:36)
[2022-04-27] MEDS ORDERED: FUROSEMIDE 40 MG/4 ML INJECTABLE VIAL ONE (13:37)
[2022-04-27] MEDS ORDERED: methylPREDNISolone NA SUCC 125 MG/2 ML VIAL ONE (13:37)
[2022-04-27 13:56] LABS: EPI CELLS 8 /uL (0-25.1); HYALINE CASTS 9 /uL (0-3.1); URINE APPEARANCE CLEAR; URINE BACTERIA >9,000 /uL (0-1359); URINE BILIRUBIN NEGATIVE (NEGATIVE); URINE COLOR YELLOW; URINE GLUCOSE (UA) NEGATIVE (NEGATIVE); URINE KETONE NEGATIVE (NEGATIVE); URINE LEUK ESTERASE TRACE (NEGATIVE); URINE NITRITE NEGATIVE (NEGATIVE); URINE PROTEIN 4+ (NEGATIVE); URINE RBC 8 /uL (0-23.9); URINE UROBILINOGEN 0.2 mg/dL (0.2-1.0); URINE WBC 200 /uL (0-25.8)
[2022-04-27] MEDS: RIVAROXABAN 15 MG TABLET PO SCH (18:35)
[2022-04-27] MEDS ORDERED: busPIRone HCL 5 MG TABLET ONE (22:41)
[2022-04-27] MEDS ORDERED: MELATONIN 5 MG TABLETS ONE (22:41)
[2022-04-27] MEDS ORDERED: amLODIPine BESYLATE 5 MG TABLET (FP) ONE (22:41)
[2022-04-27] MEDS ORDERED: ATORVASTATIN CA 40 MG TABLET (FP) ONE (22:41)
[2022-04-27] MEDS: amLODIPine BESYLATE 5 MG TABLET (FP) PO SCH (22:51)
[2022-04-27] MEDS: ATORVASTATIN CA 40 MG TABLET (FP) PO SCH (22:51)
[2022-04-28] MEDS ORDERED: ACETAMINOPHEN 1000 MG/100 ML BAG IVPB ONE (00:06)
[2022-04-28] MEDS ORDERED: LORazepam 2 MG/ML SDV VIAL IVPUSH ONE ×2 (00:06→02:28)
[2022-04-28] MEDS ORDERED: methylPREDNISolone NA SUCC 40 MG/1 ML VIAL ONE (02:18)
[2022-04-28] MEDS ORDERED: FUROSEMIDE 40 MG/4 ML INJECTABLE VIAL ONE (05:53)
[2022-04-28] MEDS: methylPREDNISolone NA SUCC 40 MG/1 ML VIAL IVPUSH SCH ×3 (06:02→17:07)
[2022-04-28] MEDS: FUROSEMIDE 40 MG/4 ML INJECTABLE VIAL IVPUSH SCH (06:03)
[2022-04-28 07:55] LABS: BASO % 0.4 % (0-2.0); HEMATOCRIT 32.8 % (32.4-45.2); HEMOGLOBIN 10.6 GM/dL (10.7-15.3); LYMPH % 16.4 % (8-40); MCHC 32.2 g/dl (32.0-36.0); MEAN CELL VOLUME 86.9 fl (80-96); MEAN PLT VOLUME 7.8 fl (7.5-11.1); MONO % 8.6 % (3.8-10.2); NEUT % 74.6 % (42.8-82.8); PLATELET COUNT 300 10^3/uL (134-434); RBC 3.77 M/mm3 (3.60-5.2); RDW 17.7 % (11.6-15.6); WHITE BLOOD COUNT 4.4 K/mm3 (4.0-10.0)
[2022-04-28 08:13] LABS: CHLORIDE 102 mmol/L (98-107); SODIUM 135 mmol/L (136-145)
[2022-04-28 08:16] LABS: CALCIUM 8.7 mg/dL (8.5-10.1)
[2022-04-28 08:17] LABS: ALBUMIN 2.9 g/dl (3.4-5.0); ANION GAP 6 MMOL/L (8-16); BLOOD UREA NITROGEN 48.3 mg/dL (7-18); CO2 28 mmol/L (21-32); GLUCOSE,RANDOM 188 mg/dL (74-106); MAGNESIUM 2.7 mg/dL (1.8-2.4)
[2022-04-28 08:20] LABS: CREATININE 1.8 mg/dL (0.55-1.3); PHOSPHOROUS 5.8 mg/dL (2.5-4.9); SGOT/AST 10 U/L (15-37); SGPT/ALT 22 U/L (13-61)
[2022-04-28 08:21] LABS: BILIRUBIN,TOTAL 0.4 mg/dL (0.2-1); TOT PROT 7.4 g/dl (6.4-8.2)
[2022-04-28 08:23] LABS: ALK PHOS 125 U/L (45-117)
[2022-04-28] MEDS: INSULIN SLIDING SCALE (NOVOLOG) 1 VIAL SQ SCH ×3 (09:08→17:07)
[2022-04-28] MEDS: LEVOTHYROXINE 112 MCG, LEVOTHYROXINE 25 MCG PO SCH (09:08)
[2022-04-28] MEDS: glipiZIDE 5 MG TABLET (FP) PO SCH (09:08)
[2022-04-28] MEDS ORDERED: SIMETHICONE 80 MG TAB.CHEW (FP) ONE ×3 (09:09→16:29)
[2022-04-28] MEDS ORDERED: glipiZIDE 5 MG TABLET (FP) ONE (09:09)
[2022-04-28] MEDS ORDERED: FERROUS SO4 325 MG TABLET (FP) ONE (09:12)
[2022-04-28] MEDS ORDERED: PANTOPRAZOLE 40 MG TABLET PO ONE (09:12)
[2022-04-28] MEDS ORDERED: CARVEDILOL 25 MG TABLET (FP) ONE ×2 (09:13→23:37)
[2022-04-28] MEDS: SIMETHICONE 80 MG TAB.CHEW (FP) PO SCH ×3 (09:20→19:21)
[2022-04-28] MEDS: CARVEDILOL 25 MG TABLET (FP) PO SCH ×2 (10:10→23:48)
[2022-04-28] MEDS: busPIRone HCL 10 MG TABLET (FP) PO SCH ×2 (10:10→23:48)
[2022-04-28] MEDS: PANTOPRAZOLE 40 MG TABLET PO SCH (10:10)
[2022-04-28] MEDS: FERROUS SO4 325 MG TABLET (FP) PO SCH (10:10)
[2022-04-28] MEDS: MULTIVITAMINS THER W-MINERALS COMBO TABLET (FP) PO SCH (10:10)
[2022-04-28] MEDS ORDERED: methylPREDNISolone NA SUCC 125 MG/2 ML VIAL ONE (11:06)
[2022-04-28] MEDS ORDERED: CHOLECALCIFEROL (VIT D3) 1,000 UNIT (25 MCG) TABLET ONE (11:07)
[2022-04-28] MEDS ORDERED: ALBUTEROL SO4 2.5/IPRATROPIUM 0.5 INH SOL 3 ML VIAL.NEB. NEB ONE ×2 (11:10→13:41)
[2022-04-28] MEDS: CHOLECALCIFEROL (VIT D3) 1,000 UNIT (25 MCG) TABLET PO SCH (11:18)
[2022-04-28] MEDS: ALBUTEROL SO4 2.5/IPRATROPIUM 0.5 INH SOL 3 ML VIAL.NEB. NEB PRN (11:19)
[2022-04-28] MEDS: SODIUM ZIRCONIUM CYCLOSILICATE (LOKELMA) 5 GM PACKET PO SCH (13:20)
[2022-04-28] MEDS ORDERED: SODIUM ZIRCONIUM CYCLOSILICATE (LOKELMA) 5 GM PACKET ONE (13:25)
[2022-04-28] MEDS: RIVAROXABAN 15 MG TABLET PO SCH (21:20)
[2022-04-28] MEDS ORDERED: busPIRone HCL 5 MG TABLET ONE (23:37)
[2022-04-28] MEDS ORDERED: amLODIPine BESYLATE 5 MG TABLET (FP) ONE (23:37)
[2022-04-28] MEDS ORDERED: ATORVASTATIN CA 40 MG TABLET (FP) ONE (23:37)
[2022-04-28] MEDS: amLODIPine BESYLATE 5 MG TABLET (FP) PO SCH (23:48)
[2022-04-28] MEDS: ATORVASTATIN CA 40 MG TABLET (FP) PO SCH (23:48)
[2022-04-29] MEDS: INSULIN SLIDING SCALE (NOVOLOG) 1 VIAL SQ SCH ×5 (00:38→22:41)
[2022-04-29] MEDS ORDERED: ZOLPIDEM TARTRATE 5 MG TABLET PO ONE (00:46)
[2022-04-29] MEDS ORDERED: INSULIN (NOVOLOG) ASPART 100 UNITS/ML 10ML VIAL SQ ONE (00:51)
[2022-04-29] MEDS ORDERED: Insulin (LOG) Aspart 100 UNITS/ML VIAL SQ ONE (00:51)
[2022-04-29] MEDS ORDERED: methylPREDNISolone NA SUCC 40 MG/1 ML VIAL ONE (03:03)
[2022-04-29] MEDS: methylPREDNISolone NA SUCC 40 MG/1 ML VIAL IVPUSH SCH ×3 (03:16→18:00)
[2022-04-29] MEDS ORDERED: glipiZIDE 5 MG TABLET (FP) ONE (08:16)
[2022-04-29 08:23] LABS: ALBUMIN 2.9 g/dl (3.4-5.0); CALCIUM 8.5 mg/dL (8.5-10.1)
[2022-04-29 08:24] LABS: BLOOD UREA NITROGEN 66.2 mg/dL (7-18)
[2022-04-29] MEDS: glipiZIDE 5 MG TABLET (FP) PO SCH (08:26)
[2022-04-29] MEDS: LEVOTHYROXINE 112 MCG, LEVOTHYROXINE 25 MCG PO SCH (08:26)
[2022-04-29 08:29] LABS: BILIRUBIN,TOTAL 0.3 mg/dL (0.2-1); TOT PROT 7.1 g/dl (6.4-8.2)
[2022-04-29] MEDS ORDERED: SODIUM ZIRCONIUM CYCLOSILICATE (LOKELMA) 5 GM PACKET ONE (09:45)
[2022-04-29] MEDS ORDERED: CHOLECALCIFEROL (VIT D3) 1,000 UNIT (25 MCG) TABLET ONE (09:45)
[2022-04-29] MEDS ORDERED: PANTOPRAZOLE 40 MG TABLET PO ONE (09:45)
[2022-04-29] MEDS ORDERED: CARVEDILOL 25 MG TABLET (FP) ONE ×2 (09:46→22:31)
[2022-04-29] MEDS ORDERED: FERROUS SO4 325 MG TABLET (FP) ONE (09:46)
[2022-04-29] MEDS ORDERED: SIMETHICONE 80 MG TAB.CHEW (FP) ONE (09:46)
[2022-04-29] MEDS ORDERED: methylPREDNISolone NA SUCC 125 MG/2 ML VIAL ONE (09:47)
[2022-04-29] MEDS ORDERED: ALBUTEROL SO4 2.5/IPRATROPIUM 0.5 INH SOL 3 ML VIAL.NEB. NEB ONE ×2 (09:59→11:30)
[2022-04-29] MEDS: FERROUS SO4 325 MG TABLET (FP) PO SCH (10:01)
[2022-04-29] MEDS: SODIUM ZIRCONIUM CYCLOSILICATE (LOKELMA) 5 GM PACKET PO SCH (10:01)
[2022-04-29] MEDS: ALBUTEROL SO4 2.5/IPRATROPIUM 0.5 INH SOL 3 ML VIAL.NEB. NEB PRN (10:01)
[2022-04-29] MEDS: CHOLECALCIFEROL (VIT D3) 1,000 UNIT (25 MCG) TABLET PO SCH (10:01)
[2022-04-29] MEDS: MULTIVITAMINS THER W-MINERALS COMBO TABLET (FP) PO SCH (10:01)
[2022-04-29] MEDS: CARVEDILOL 25 MG TABLET (FP) PO SCH ×2 (10:01→22:41)
[2022-04-29] MEDS: PANTOPRAZOLE 40 MG TABLET PO SCH (10:01)
[2022-04-29] MEDS: busPIRone HCL 10 MG TABLET (FP) PO SCH ×2 (10:01→22:41)
[2022-04-29] MEDS: SIMETHICONE 80 MG TAB.CHEW (FP) PO SCH ×3 (10:19→22:42)
[2022-04-29 15:54] LABS: EPI CELLS >36 /uL (0-25.1); HYALINE CASTS 1 /uL (0-3.1); URINE APPEARANCE CLEAR; URINE BILIRUBIN NEGATIVE (NEGATIVE); URINE COLOR YELLOW; URINE GLUCOSE (UA) 1+ (NEGATIVE); URINE KETONE NEGATIVE (NEGATIVE); URINE LEUK ESTERASE TRACE (NEGATIVE); URINE NITRITE POSITIVE (NEGATIVE); URINE PROTEIN 3+ (NEGATIVE); URINE RBC 7 /uL (0-23.9); URINE UROBILINOGEN 0.2 mg/dL (0.2-1.0); URINE WBC 198 /uL (0-25.8)
[2022-04-29] MEDS: CEFTRIAXONE 1 GM in DEXTROSE 5%-WATER - 50 ML IVPB SCH (18:10)
[2022-04-29] MEDS: RIVAROXABAN 15 MG TABLET PO SCH (18:10)
[2022-04-29] MEDS ORDERED: cefTRIAXone SODIUM 1 GM VIAL ONE (18:11)
[2022-04-29 18:34] LABS: URINE BACTERIA 91.7 /uL (0-1359)
[2022-04-29] MEDS ORDERED: MELATONIN 5 MG TABLETS ONE (20:47)
[2022-04-29] MEDS ORDERED: ATORVASTATIN CA 40 MG TABLET (FP) ONE (22:31)
[2022-04-29] MEDS ORDERED: amLODIPine BESYLATE 5 MG TABLET (FP) ONE (22:31)
[2022-04-29] MEDS ORDERED: busPIRone HCL 5 MG TABLET ONE (22:31)
[2022-04-29] MEDS: ATORVASTATIN CA 40 MG TABLET (FP) PO SCH (22:41)
[2022-04-29] MEDS: amLODIPine BESYLATE 5 MG TABLET (FP) PO SCH (22:41)
[2022-04-29] MEDS: MELATONIN 5 MG TABLETS PO PRN (22:42)
[2022-04-30] MEDS ORDERED: ALBUTEROL SO4 2.5/IPRATROPIUM 0.5 INH SOL 3 ML VIAL.NEB. NEB ONE (00:53)
[2022-04-30] MEDS ORDERED: HYDROCORTISONE SOD SUCCINATE 100 MG/2 ML VIAL ONE (00:53)
[2022-04-30] MEDS: methylPREDNISolone NA SUCC 40 MG/1 ML VIAL IVPUSH SCH ×3 (01:03→18:41)
[2022-04-30] MEDS: ALBUTEROL SO4 2.5/IPRATROPIUM 0.5 INH SOL 3 ML VIAL.NEB. NEB PRN (01:03)
[2022-04-30] MEDS: INSULIN SLIDING SCALE (NOVOLOG) 1 VIAL SQ SCH ×4 (06:24→22:39)
[2022-04-30] MEDS ORDERED: glipiZIDE 5 MG TABLET (FP) ONE (06:26)
[2022-04-30] MEDS: glipiZIDE 5 MG TABLET (FP) PO SCH (06:28)
[2022-04-30 08:00] LABS: HEMATOCRIT 30.9 % (32.4-45.2); HEMOGLOBIN 10.2 GM/dL (10.7-15.3); LYMPH % 7.3 % (8-40); MCH 28.2 pg (25.7-33.7); MEAN CELL VOLUME 85.6 fl (80-96); MEAN PLT VOLUME 7.6 fl (7.5-11.1); MONO % 2.1 % (3.8-10.2); NEUT % 90.6 % (42.8-82.8); PLATELET COUNT 276 10^3/uL (134-434); RBC 3.61 M/mm3 (3.60-5.2); RDW 17.5 % (11.6-15.6); WHITE BLOOD COUNT 6.3 K/mm3 (4.0-10.0)
[2022-04-30 08:19] LABS: ALBUMIN 2.8 g/dl (3.4-5.0); BLOOD UREA NITROGEN 63.7 mg/dL (7-18); CALCIUM 8.6 mg/dL (8.5-10.1)
[2022-04-30 08:21] LABS: CREATININE 1.5 mg/dL (0.55-1.3)
[2022-04-30 08:23] LABS: BILIRUBIN,TOTAL 0.2 mg/dL (0.2-1); TOT PROT 7.1 g/dl (6.4-8.2)
[2022-04-30] MEDS ORDERED: SODIUM ZIRCONIUM CYCLOSILICATE (LOKELMA) 5 GM PACKET ONE (09:27)
[2022-04-30] MEDS ORDERED: PANTOPRAZOLE 40 MG TABLET PO ONE (09:27)
[2022-04-30] MEDS ORDERED: CARVEDILOL 25 MG TABLET (FP) ONE (09:27)
[2022-04-30] MEDS ORDERED: FERROUS SO4 325 MG TABLET (FP) ONE (09:27)
[2022-04-30] MEDS ORDERED: CHOLECALCIFEROL (VIT D3) 1,000 UNIT (25 MCG) TABLET ONE (09:27)
[2022-04-30] MEDS ORDERED: methylPREDNISolone NA SUCC 125 MG/2 ML VIAL ONE (09:28)
[2022-04-30] MEDS ORDERED: CEFTRIAXONE 1 GM/50 ML BAG ONE (09:28)
[2022-04-30] MEDS: LEVOTHYROXINE 112 MCG, LEVOTHYROXINE 25 MCG PO SCH (09:40)
[2022-04-30] MEDS: busPIRone HCL 10 MG TABLET (FP) PO SCH ×2 (09:56→22:29)
[2022-04-30] MEDS: CEFTRIAXONE 1 GM in DEXTROSE 5%-WATER - 50 ML IVPB SCH (09:56)
[2022-04-30] MEDS: SODIUM ZIRCONIUM CYCLOSILICATE (LOKELMA) 5 GM PACKET PO SCH (09:56)
[2022-04-30] MEDS: CARVEDILOL 25 MG TABLET (FP) PO SCH ×2 (09:56→22:30)
[2022-04-30] MEDS: FERROUS SO4 325 MG TABLET (FP) PO SCH (09:56)
[2022-04-30] MEDS: PANTOPRAZOLE 40 MG TABLET PO SCH (09:56)
[2022-04-30] MEDS: MULTIVITAMINS THER W-MINERALS COMBO TABLET (FP) PO SCH (09:57)
[2022-04-30] MEDS: CHOLECALCIFEROL (VIT D3) 1,000 UNIT (25 MCG) TABLET PO SCH (09:57)
[2022-04-30] MEDS ORDERED: SIMETHICONE 80 MG TAB.CHEW (FP) ONE ×2 (10:03→12:39)
[2022-04-30] MEDS: SIMETHICONE 80 MG TAB.CHEW (FP) PO SCH ×3 (10:04→18:42)
[2022-04-30] MEDS ORDERED: INSULIN SLIDING SCALE (NOVOLOG) 1 VIAL SQ ONE (11:32)
[2022-04-30] MEDS ORDERED: FUROSEMIDE 40 MG/4 ML INJECTABLE VIAL IVPUSH ONE (12:15)
[2022-04-30] MEDS ORDERED: FUROSEMIDE 40 MG/4 ML INJECTABLE VIAL ONE (12:40)
[2022-04-30] MEDS: RIVAROXABAN 15 MG TABLET PO SCH (18:42)
[2022-04-30] MEDS: ATORVASTATIN CA 40 MG TABLET (FP) PO SCH (22:30)
[2022-04-30] MEDS: MELATONIN 5 MG TABLETS PO PRN (22:30)
[2022-04-30] MEDS: amLODIPine BESYLATE 5 MG TABLET (FP) PO SCH (22:30)
[2022-04-30] MEDS: CEPHALEXIN MONOHYDRATE 500 MG CAPSULE (UD) PO SCH (22:30)
[2022-05-01] MEDS: ACETAMINOPHEN 325 MG TABLET (FP) PO PRN ×2 (00:11→22:24)
[2022-05-01] MEDS ORDERED: traZODone HCL 50 MG TABLET (FP) PO ONE (00:45)
[2022-05-01] MEDS: methylPREDNISolone NA SUCC 40 MG/1 ML VIAL IVPUSH SCH ×3 (01:38→17:18)
[2022-05-01] MEDS ORDERED: MELATONIN 5 MG TABLETS PO ONE (04:40)
[2022-05-01] MEDS ORDERED: LORazepam 2 MG/ML SDV VIAL IVPUSH ONE (04:41)
[2022-05-01] MEDS: INSULIN SLIDING SCALE (NOVOLOG) 1 VIAL SQ SCH ×5 (05:21→21:16)
[2022-05-01] MEDS ORDERED: LEVOTHYROXINE NA 112 MCG TABLET (FP) ONE (05:46)
[2022-05-01] MEDS ORDERED: LEVOTHYROXINE NA 25 MCG TABLET (FP) ONE (05:46)
[2022-05-01] MEDS: LEVOTHYROXINE 112 MCG, LEVOTHYROXINE 25 MCG PO SCH (06:01)
[2022-05-01] MEDS: glipiZIDE 5 MG TABLET (FP) PO SCH (06:02)
[2022-05-01] MEDS: CHOLECALCIFEROL (VIT D3) 1,000 UNIT (25 MCG) TABLET PO SCH (09:27)
[2022-05-01] MEDS: FERROUS SO4 325 MG TABLET (FP) PO SCH (09:27)
[2022-05-01] MEDS: CARVEDILOL 25 MG TABLET (FP) PO SCH ×2 (09:27→21:15)
[2022-05-01] MEDS: MULTIVITAMINS THER W-MINERALS COMBO TABLET (FP) PO SCH (09:27)
[2022-05-01] MEDS: SIMETHICONE 80 MG TAB.CHEW (FP) PO SCH ×3 (09:27→18:28)
[2022-05-01] MEDS: busPIRone HCL 10 MG TABLET (FP) PO SCH ×2 (09:27→21:15)
[2022-05-01] MEDS: CEPHALEXIN MONOHYDRATE 500 MG CAPSULE (UD) PO SCH ×2 (09:27→21:15)
[2022-05-01] MEDS: PANTOPRAZOLE 40 MG TABLET PO SCH (09:27)
[2022-05-01] MEDS: SODIUM ZIRCONIUM CYCLOSILICATE (LOKELMA) 5 GM PACKET PO SCH (09:29)
[2022-05-01 09:34] LABS: CALCIUM 8.6 mg/dL (8.5-10.1)
[2022-05-01 09:35] LABS: ALBUMIN 2.8 g/dl (3.4-5.0); BLOOD UREA NITROGEN 60.8 mg/dL (7-18)
[2022-05-01 09:38] LABS: CREATININE 1.6 mg/dL (0.55-1.3)
[2022-05-01 09:39] LABS: TOT PROT 7.2 g/dl (6.4-8.2)
[2022-05-01 09:40] LABS: BILIRUBIN,TOTAL 0.4 mg/dL (0.2-1)
[2022-05-01] MEDS ORDERED: FUROSEMIDE 40 MG/4 ML INJECTABLE VIAL IVPUSH ONE (13:00)
[2022-05-01] MEDS: RIVAROXABAN 15 MG TABLET PO SCH (17:17)
[2022-05-01] MEDS: ATORVASTATIN CA 40 MG TABLET (FP) PO SCH (21:15)
[2022-05-01] MEDS: amLODIPine BESYLATE 5 MG TABLET (FP) PO SCH (21:16)
[2022-05-01] MEDS: MELATONIN 5 MG TABLETS PO PRN (22:24)
[2022-05-02] MEDS: methylPREDNISolone NA SUCC 40 MG/1 ML VIAL IVPUSH SCH ×3 (02:47→17:01)
[2022-05-02] MEDS ORDERED: LEVOTHYROXINE NA 25 MCG TABLET (FP) ONE (06:20)
[2022-05-02] MEDS ORDERED: LEVOTHYROXINE NA 112 MCG TABLET (FP) ONE (06:20)
[2022-05-02] MEDS: LEVOTHYROXINE 112 MCG, LEVOTHYROXINE 25 MCG PO SCH (06:23)
[2022-05-02] MEDS: INSULIN SLIDING SCALE (NOVOLOG) 1 VIAL SQ SCH ×4 (06:28→21:58)
[2022-05-02] MEDS: glipiZIDE 5 MG TABLET (FP) PO SCH (06:36)
[2022-05-02] MEDS: MULTIVITAMINS THER W-MINERALS COMBO TABLET (FP) PO SCH (09:53)
[2022-05-02] MEDS: SIMETHICONE 80 MG TAB.CHEW (FP) PO SCH ×3 (09:53→17:49)
[2022-05-02] MEDS: CHOLECALCIFEROL (VIT D3) 1,000 UNIT (25 MCG) TABLET PO SCH (09:53)
[2022-05-02] MEDS: CARVEDILOL 25 MG TABLET (FP) PO SCH ×3 (09:53→22:30)
[2022-05-02] MEDS: FERROUS SO4 325 MG TABLET (FP) PO SCH (09:53)
[2022-05-02] MEDS: PANTOPRAZOLE 40 MG TABLET PO SCH (09:53)
[2022-05-02] MEDS: CEPHALEXIN MONOHYDRATE 500 MG CAPSULE (UD) PO SCH ×3 (09:53→22:30)
[2022-05-02] MEDS: busPIRone HCL 10 MG TABLET (FP) PO SCH ×3 (09:53→22:30)
[2022-05-02] MEDS ORDERED: FUROSEMIDE 40 MG TABLET (FP) PO ONE (15:00)
[2022-05-02] MEDS: RIVAROXABAN 15 MG TABLET PO SCH (17:01)
[2022-05-02] MEDS: ATORVASTATIN CA 40 MG TABLET (FP) PO SCH ×2 (21:58→22:30)
[2022-05-02] MEDS: amLODIPine BESYLATE 5 MG TABLET (FP) PO SCH ×2 (21:58→22:30)
[2022-05-03] MEDS: MELATONIN 5 MG TABLETS PO PRN ×2 (00:16→21:46)
[2022-05-03] MEDS: methylPREDNISolone NA SUCC 40 MG/1 ML VIAL IVPUSH SCH ×3 (01:19→17:19)
[2022-05-03] MEDS ORDERED: LORazepam 2 MG/ML SDV VIAL IVPUSH ONE (01:49)
[2022-05-03] MEDS ORDERED: LEVOTHYROXINE NA 25 MCG TABLET (FP) ONE (06:03)
[2022-05-03] MEDS ORDERED: LEVOTHYROXINE NA 112 MCG TABLET (FP) ONE (06:03)
[2022-05-03] MEDS: INSULIN SLIDING SCALE (NOVOLOG) 1 VIAL SQ SCH ×4 (06:28→22:02)
[2022-05-03] MEDS: LEVOTHYROXINE 112 MCG, LEVOTHYROXINE 25 MCG PO SCH (06:29)
[2022-05-03] MEDS: glipiZIDE 5 MG TABLET (FP) PO SCH (06:29)
[2022-05-03 08:51] LABS: HEMATOCRIT 35.5 % (32.4-45.2); HEMOGLOBIN 11.5 GM/dL (10.7-15.3); MCH 27.9 pg (25.7-33.7); MCHC 32.3 g/dl (32.0-36.0); MEAN CELL VOLUME 86.3 fl (80-96); PLATELET COUNT 317 10^3/uL (134-434); RBC 4.11 M/mm3 (3.60-5.2); RDW 17.7 % (11.6-15.6); WHITE BLOOD COUNT 6.4 K/mm3 (4.0-10.0)
[2022-05-03] MEDS ORDERED: FUROSEMIDE 40 MG/4 ML INJECTABLE VIAL IVPUSH ONE (09:00)
[2022-05-03] MEDS: CHOLECALCIFEROL (VIT D3) 1,000 UNIT (25 MCG) TABLET PO SCH (09:07)
[2022-05-03] MEDS: busPIRone HCL 10 MG TABLET (FP) PO SCH ×2 (09:07→21:46)
[2022-05-03] MEDS: CEPHALEXIN MONOHYDRATE 500 MG CAPSULE (UD) PO SCH ×2 (09:07→21:46)
[2022-05-03] MEDS: SIMETHICONE 80 MG TAB.CHEW (FP) PO SCH ×3 (09:08→18:14)
[2022-05-03] MEDS: PANTOPRAZOLE 40 MG TABLET PO SCH (09:08)
[2022-05-03] MEDS: FERROUS SO4 325 MG TABLET (FP) PO SCH (09:08)
[2022-05-03] MEDS: CARVEDILOL 25 MG TABLET (FP) PO SCH ×2 (09:08→21:46)
[2022-05-03] MEDS: MULTIVITAMINS THER W-MINERALS COMBO TABLET (FP) PO SCH (09:09)
[2022-05-03 09:18] LABS: CHLORIDE 102 mmol/L (98-107); SODIUM 137 mmol/L (136-145)
[2022-05-03 09:21] LABS: ALBUMIN 2.9 g/dl (3.4-5.0); ANION GAP 8 MMOL/L (8-16); BLOOD UREA NITROGEN 62.6 mg/dL (7-18); CO2 27 mmol/L (21-32); MAGNESIUM 2.6 mg/dL (1.8-2.4)
[2022-05-03 09:24] LABS: CREATININE 1.6 mg/dL (0.55-1.3); SGOT/AST 17 U/L (15-37); SGPT/ALT 35 U/L (13-61)
[2022-05-03 09:25] LABS: BILIRUBIN,TOTAL 0.6 mg/dL (0.2-1); TOT PROT 6.9 g/dl (6.4-8.2)
[2022-05-03 09:27] LABS: ALK PHOS 101 U/L (45-117)
[2022-05-03 09:33] LABS: GLUCOSE,RANDOM 404 mg/dL (74-106)
[2022-05-03 11:14] LABS: N-TERMINAL BNP 45385.5 pg/ml (5-450)
[2022-05-03] MEDS: INSULIN (LEVEMIR) 100 UNITS/ML UNITS SQ SCH ×2 (11:14→16:25)
[2022-05-03] MEDS ORDERED: hydrALAZINE HCL 10 MG TABLET PO ONE (14:00)
[2022-05-03] MEDS: ISOSORBIDE MONONITRATE 30 MG TAB.SR.24H (FP) PO SCH (16:22)
[2022-05-03] MEDS: RIVAROXABAN 15 MG TABLET PO SCH (17:19)
[2022-05-03] MEDS: ACETAMINOPHEN 325 MG TABLET (FP) PO PRN (21:45)
[2022-05-03] MEDS: MIRTAZAPINE 15 MG TABLET (FP) PO SCH (21:46)
[2022-05-03] MEDS: hydrALAZINE HCL 10 MG TABLET PO SCH (21:46)
[2022-05-03] MEDS: ATORVASTATIN CA 40 MG TABLET (FP) PO SCH (21:46)
[2022-05-03] MEDS: amLODIPine BESYLATE 5 MG TABLET (FP) PO SCH (21:46)
[2022-05-04] MEDS: methylPREDNISolone NA SUCC 40 MG/1 ML VIAL IVPUSH SCH ×3 (02:52→17:46)
[2022-05-04] MEDS ORDERED: LEVOTHYROXINE NA 25 MCG TABLET (FP) ONE (05:15)
[2022-05-04] MEDS ORDERED: LEVOTHYROXINE NA 112 MCG TABLET (FP) ONE (05:15)
[2022-05-04] MEDS: glipiZIDE 5 MG TABLET (FP) PO SCH (06:45)
[2022-05-04] MEDS: LEVOTHYROXINE 112 MCG, LEVOTHYROXINE 25 MCG PO SCH (06:45)
[2022-05-04] MEDS: INSULIN (LEVEMIR) 100 UNITS/ML UNITS SQ SCH ×2 (06:45→16:44)
[2022-05-04] MEDS ORDERED: FUROSEMIDE 40 MG/4 ML INJECTABLE VIAL IVPUSH SCH (10:00)
[2022-05-04 10:01] LABS: BLOOD UREA NITROGEN 55.5 mg/dL (7-18); CALCIUM 8.9 mg/dL (8.5-10.1)
[2022-05-04 10:04] LABS: CREATININE 1.4 mg/dL (0.55-1.3)
[2022-05-04] MEDS: INSULIN SLIDING SCALE (NOVOLOG) 1 VIAL SQ SCH ×4 (10:43→21:46)
[2022-05-04] MEDS: FERROUS SO4 325 MG TABLET (FP) PO SCH (10:45)
[2022-05-04] MEDS: CEPHALEXIN MONOHYDRATE 500 MG CAPSULE (UD) PO SCH ×2 (10:45→21:45)
[2022-05-04] MEDS: CHOLECALCIFEROL (VIT D3) 1,000 UNIT (25 MCG) TABLET PO SCH (10:45)
[2022-05-04] MEDS: SIMETHICONE 80 MG TAB.CHEW (FP) PO SCH ×3 (10:45→17:47)
[2022-05-04] MEDS: PANTOPRAZOLE 40 MG TABLET PO SCH (10:45)
[2022-05-04] MEDS: MULTIVITAMINS THER W-MINERALS COMBO TABLET (FP) PO SCH (10:45)
[2022-05-04] MEDS: CARVEDILOL 25 MG TABLET (FP) PO SCH ×2 (10:45→21:45)
[2022-05-04] MEDS: ISOSORBIDE MONONITRATE 30 MG TAB.SR.24H (FP) PO SCH (10:45)
[2022-05-04] MEDS: busPIRone HCL 10 MG TABLET (FP) PO SCH ×2 (10:45→21:45)
[2022-05-04] MEDS: hydrALAZINE HCL 10 MG TABLET PO SCH ×2 (10:45→21:45)
[2022-05-04] MEDS: RIVAROXABAN 15 MG TABLET PO SCH (17:46)
[2022-05-04] MEDS: amLODIPine BESYLATE 5 MG TABLET (FP) PO SCH (21:45)
[2022-05-04] MEDS: MELATONIN 5 MG TABLETS PO PRN (21:45)
[2022-05-04] MEDS: MIRTAZAPINE 15 MG TABLET (FP) PO SCH (21:45)
[2022-05-04] MEDS: ATORVASTATIN CA 40 MG TABLET (FP) PO SCH (21:45)
[2022-05-05] MEDS: methylPREDNISolone NA SUCC 40 MG/1 ML VIAL IVPUSH SCH ×2 (01:49→09:56)
[2022-05-05] MEDS ORDERED: LEVOTHYROXINE NA 112 MCG TABLET (FP) ONE (05:39)
[2022-05-05] MEDS ORDERED: LEVOTHYROXINE NA 25 MCG TABLET (FP) ONE (05:40)
[2022-05-05] MEDS: INSULIN SLIDING SCALE (NOVOLOG) 1 VIAL SQ SCH ×4 (06:07→21:41)
[2022-05-05] MEDS: LEVOTHYROXINE 112 MCG, LEVOTHYROXINE 25 MCG PO SCH (06:07)
[2022-05-05] MEDS: glipiZIDE 5 MG TABLET (FP) PO SCH (06:07)
[2022-05-05] MEDS: INSULIN (LEVEMIR) 100 UNITS/ML UNITS SQ SCH ×2 (08:07→17:11)
[2022-05-05] MEDS: busPIRone HCL 10 MG TABLET (FP) PO SCH ×2 (09:55→21:37)
[2022-05-05] MEDS: CEPHALEXIN MONOHYDRATE 500 MG CAPSULE (UD) PO SCH ×2 (09:55→21:38)
[2022-05-05] MEDS: hydrALAZINE HCL 10 MG TABLET PO SCH ×3 (09:55→21:38)
[2022-05-05] MEDS: MULTIVITAMINS THER W-MINERALS COMBO TABLET (FP) PO SCH (09:55)
[2022-05-05] MEDS: ACETAMINOPHEN 325 MG TABLET (FP) PO PRN ×2 (09:55→21:26)
[2022-05-05] MEDS: FERROUS SO4 325 MG TABLET (FP) PO SCH (09:55)
[2022-05-05] MEDS: PANTOPRAZOLE 40 MG TABLET PO SCH (09:55)
[2022-05-05] MEDS: CHOLECALCIFEROL (VIT D3) 1,000 UNIT (25 MCG) TABLET PO SCH (09:55)
[2022-05-05] MEDS: SIMETHICONE 80 MG TAB.CHEW (FP) PO SCH ×3 (09:55→18:20)
[2022-05-05] MEDS: FUROSEMIDE 40 MG TABLET (FP) PO SCH (09:55)
[2022-05-05] MEDS: ISOSORBIDE MONONITRATE 30 MG TAB.SR.24H (FP) PO SCH (09:55)
[2022-05-05] MEDS: CARVEDILOL 25 MG TABLET (FP) PO SCH ×2 (09:56→21:38)
[2022-05-05 12:04] LABS: BLOOD UREA NITROGEN 43.9 mg/dL (7-18); CALCIUM 8.8 mg/dL (8.5-10.1); CREATININE 1.3 mg/dL (0.55-1.3); MAGNESIUM 2.4 mg/dL (1.8-2.4)
[2022-05-05] MEDS: RIVAROXABAN 15 MG TABLET PO SCH (17:17)
[2022-05-05] MEDS: MELATONIN 5 MG TABLETS PO PRN (21:37)
[2022-05-05] MEDS: amLODIPine BESYLATE 5 MG TABLET (FP) PO SCH (21:38)
[2022-05-05] MEDS: ATORVASTATIN CA 40 MG TABLET (FP) PO SCH (21:38)
[2022-05-05] MEDS: MIRTAZAPINE 15 MG TABLET (FP) PO SCH (21:39)
[2022-05-05] MEDS ORDERED: methylPREDNISolone NA SUCC 40 MG/1 ML VIAL IVPUSH SCH (22:00)
[2022-05-06] MEDS ORDERED: LEVOTHYROXINE NA 25 MCG TABLET (FP) ONE (06:00)
[2022-05-06] MEDS ORDERED: LEVOTHYROXINE NA 112 MCG TABLET (FP) ONE (06:00)
[2022-05-06] MEDS: INSULIN (LEVEMIR) 100 UNITS/ML UNITS SQ SCH ×2 (06:23→16:08)
[2022-05-06] MEDS: hydrALAZINE HCL 10 MG TABLET PO SCH ×3 (06:23→23:41)
[2022-05-06] MEDS: glipiZIDE 5 MG TABLET (FP) PO SCH (06:23)
[2022-05-06] MEDS: LEVOTHYROXINE 112 MCG, LEVOTHYROXINE 25 MCG PO SCH (06:23)
[2022-05-06] MEDS: INSULIN SLIDING SCALE (NOVOLOG) 1 VIAL SQ SCH ×4 (06:24→22:51)
[2022-05-06 07:41] LABS: CALCIUM 8.2 mg/dL (8.5-10.1)
[2022-05-06 07:42] LABS: BLOOD UREA NITROGEN 46.5 mg/dL (7-18)
[2022-05-06 07:45] LABS: CREATININE 1.3 mg/dL (0.55-1.3)
[2022-05-06] MEDS: CHOLECALCIFEROL (VIT D3) 1,000 UNIT (25 MCG) TABLET PO SCH (10:52)
[2022-05-06] MEDS: MULTIVITAMINS THER W-MINERALS COMBO TABLET (FP) PO SCH (10:52)
[2022-05-06] MEDS: FUROSEMIDE 40 MG TABLET (FP) PO SCH (10:53)
[2022-05-06] MEDS: SIMETHICONE 80 MG TAB.CHEW (FP) PO SCH ×3 (10:53→17:55)
[2022-05-06] MEDS: busPIRone HCL 10 MG TABLET (FP) PO SCH ×2 (10:53→22:23)
[2022-05-06] MEDS: PANTOPRAZOLE 40 MG TABLET PO SCH (10:53)
[2022-05-06] MEDS: ISOSORBIDE MONONITRATE 30 MG TAB.SR.24H (FP) PO SCH (10:53)
[2022-05-06] MEDS: CEPHALEXIN MONOHYDRATE 500 MG CAPSULE (UD) PO SCH ×2 (10:53→22:22)
[2022-05-06] MEDS: FERROUS SO4 325 MG TABLET (FP) PO SCH (10:53)
[2022-05-06] MEDS: CARVEDILOL 25 MG TABLET (FP) PO SCH ×2 (10:53→22:22)
[2022-05-06] MEDS: predniSONE 20 MG TABLET (UD) PO SCH (10:53)
[2022-05-06] MEDS: RIVAROXABAN 15 MG TABLET PO SCH (17:55)
[2022-05-06] MEDS: ACETAMINOPHEN 325 MG TABLET (FP) PO PRN (22:21)
[2022-05-06] MEDS: MELATONIN 5 MG TABLETS PO PRN (22:22)
[2022-05-06] MEDS: MIRTAZAPINE 15 MG TABLET (FP) PO SCH (22:22)
[2022-05-06] MEDS: amLODIPine BESYLATE 5 MG TABLET (FP) PO SCH (22:23)
[2022-05-06] MEDS: ATORVASTATIN CA 40 MG TABLET (FP) PO SCH (22:24)
[2022-05-07] MEDS ORDERED: LEVOTHYROXINE NA 25 MCG TABLET (FP) ONE (05:56)
[2022-05-07] MEDS ORDERED: LEVOTHYROXINE NA 112 MCG TABLET (FP) ONE (05:56)
[2022-05-07] MEDS: hydrALAZINE HCL 10 MG TABLET PO SCH ×2 (06:12→13:59)
[2022-05-07] MEDS: INSULIN SLIDING SCALE (NOVOLOG) 1 VIAL SQ SCH ×3 (06:13→17:13)
[2022-05-07] MEDS: glipiZIDE 5 MG TABLET (FP) PO SCH (06:13)
[2022-05-07] MEDS: LEVOTHYROXINE 112 MCG, LEVOTHYROXINE 25 MCG PO SCH (06:13)
[2022-05-07] MEDS: INSULIN (LEVEMIR) 100 UNITS/ML UNITS SQ SCH ×2 (06:14→17:13)
[2022-05-07] MEDS: CHOLECALCIFEROL (VIT D3) 1,000 UNIT (25 MCG) TABLET PO SCH (10:13)
[2022-05-07] MEDS: ISOSORBIDE MONONITRATE 30 MG TAB.SR.24H (FP) PO SCH (10:14)
[2022-05-07] MEDS: FUROSEMIDE 40 MG TABLET (FP) PO SCH (10:14)
[2022-05-07] MEDS: predniSONE 20 MG TABLET (UD) PO SCH (10:14)
[2022-05-07] MEDS: busPIRone HCL 10 MG TABLET (FP) PO SCH (10:14)
[2022-05-07] MEDS: FERROUS SO4 325 MG TABLET (FP) PO SCH (10:15)
[2022-05-07] MEDS: SIMETHICONE 80 MG TAB.CHEW (FP) PO SCH ×3 (10:15→18:05)
[2022-05-07] MEDS: PANTOPRAZOLE 40 MG TABLET PO SCH (10:15)
[2022-05-07] MEDS: CARVEDILOL 25 MG TABLET (FP) PO SCH (10:15)
[2022-05-07] MEDS: CEPHALEXIN MONOHYDRATE 500 MG CAPSULE (UD) PO SCH (10:16)
[2022-05-07] MEDS: MULTIVITAMINS THER W-MINERALS COMBO TABLET (FP) PO SCH (10:17)
[2022-05-07 10:23] LABS: CALCIUM 8.3 mg/dL (8.5-10.1)
[2022-05-07 10:24] LABS: BLOOD UREA NITROGEN 44.5 mg/dL (7-18)
[2022-05-07 10:27] LABS: CREATININE 1.2 mg/dL (0.55-1.3)
[2022-05-07 13:52] VITALS: BP 136/67; PULSE 59; TEMP 97.8
[2022-05-07] MEDS: RIVAROXABAN 15 MG TABLET PO SCH (17:11)
[2022-05-07] MEDS ORDERED: amLODIPine BESYLATE 5 MG TABLET (FP) PO SCH (22:00)
[2022-05-08] MEDS ORDERED: amLODIPine BESYLATE 5 MG TABLET (FP) PO ONE (12:53)
== END 2022-05-06 20:45 | DRG 291 ==
LOC: JER 18:51 → JERBED 04-27 00:48 → J7W 04-30 17:19
PROVIDERS: ADMIT Family Medicine; ATTEND Family Medicine
DX: I13.0 Hypertensive heart and chronic kidney disease with heart failure and stage 1 through stage 4 chronic kidney disease, or unspecified chronic kidney disease (principal); I50.23 Acute on chronic systolic (congestive) heart failure; J44.1 Chronic obstructive pulmonary disease with (acute) exacerbation; I31.3 Pericardial effusion (noninflammatory); N39.0 Urinary tract infection, site not specified; N17.9 Acute kidney failure, unspecified; I24.8 Other forms of acute ischemic heart disease; I25.10 Atherosclerotic heart disease of native coronary artery without angina pectoris; J44.9 Chronic obstructive pulmonary disease, unspecified; F03.90 Unspecified dementia, unspecified severity, without behavioral disturbance, psychotic disturbance, mood disturbance, and anxiety; K21.9 Gastro-esophageal reflux disease without esophagitis; D64.9 Anemia, unspecified; F41.9 Anxiety disorder, unspecified; E03.9 Hypothyroidism, unspecified; E78.5 Hyperlipidemia, unspecified; Z86.16 Personal history of COVID-19; F32.A Depression, unspecified; I77.819 Aortic ectasia, unspecified site; E11.22 Type 2 diabetes mellitus with diabetic chronic kidney disease; N18.9 Chronic kidney disease, unspecified; E87.5 Hyperkalemia; Z86.718 Personal history of other venous thrombosis and embolism; E11.65 Type 2 diabetes mellitus with hyperglycemia
CPT/HCPCS: 0241U-QW; 36415; 71045-TC-FY; 71275-TC; 76775-TC; 80048; 80053; 81003; 82550; 82553; 82962; 83036; 83735; 83880; 84100; 84439; 84443; 84484; 85025; 85027; 85610; 85730; 86850; 86900; 86901; 87086; 87186; 93005; 93010; 94010; 97116-GP; 97162-GP; 99285-25; C9803-CS; J1100; Q9967; U0003; U0005

== ENCOUNTER 2022-05-17 11:38 | Inpatient (IN) | payer OTHER ==
[2022-05-17 13:02] LABS: BASO % 0.5 % (0-2.0); EOS % 1.3 % (0-4.5); HEMATOCRIT 32.8 % (32.4-45.2); HEMOGLOBIN 10.8 GM/dL (10.7-15.3); LYMPH % 8.9 % (8-40); MCH 28.3 pg (25.7-33.7); MCHC 33.1 g/dl (32.0-36.0); MEAN CELL VOLUME 85.6 fl (80-96); MEAN PLT VOLUME 7.9 fl (7.5-11.1); MONO % 3.6 % (3.8-10.2); NEUT % 85.7 % (42.8-82.8); PLATELET COUNT 190 10^3/uL (134-434); RBC 3.83 M/mm3 (3.60-5.2); RDW 17.7 % (11.6-15.6); WHITE BLOOD COUNT 8.2 K/mm3 (4.0-10.0)
[2022-05-17 13:15] LABS: INR 1.29 (0.83-1.09); PROTHROMBIN TIME (PATIENT) 14.9 SEC (9.7-13.0)
[2022-05-17 13:18] LABS: ACTIVATED PTT 29.2 SECONDS (25.2-36.5)
[2022-05-17 13:24] LABS: ALBUMIN 2.2 g/dl (3.4-5.0); BLOOD UREA NITROGEN 33.9 mg/dL (7-18)
[2022-05-17 13:29] LABS: BILIRUBIN,TOTAL 0.6 mg/dL (0.2-1)
[2022-05-17] MEDS: INSULIN SLIDING SCALE (NOVOLOG) 1 VIAL SQ SCH (22:45)
[2022-05-17] MEDS: CARVEDILOL 12.5 MG TABLET (FP) PO SCH (22:45)
[2022-05-17 22:52] LABS: BASO % 0.3 % (0-2.0); EOS % 2.2 % (0-4.5); HEMATOCRIT 30.1 % (32.4-45.2); HEMOGLOBIN 9.8 GM/dL (10.7-15.3); MCH 27.8 pg (25.7-33.7); MCHC 32.5 g/dl (32.0-36.0); MEAN CELL VOLUME 85.8 fl (80-96); MEAN PLT VOLUME 7.3 fl (7.5-11.1); MONO % 4.3 % (3.8-10.2); NEUT % 79.2 % (42.8-82.8); PLATELET COUNT 162 10^3/uL (134-434); RBC 3.51 M/mm3 (3.60-5.2); RDW 18.1 % (11.6-15.6); WHITE BLOOD COUNT 6.8 K/mm3 (4.0-10.0)
[2022-05-17] MEDS ORDERED: PANTOPRAZOLE SODIUM 40 MG VIAL IVPUSH ONE (23:12)
[2022-05-17] MEDS: ALBUTEROL SO4 2.5/IPRATROPIUM 0.5 INH SOL 3 ML VIAL.NEB. NEB PRN (23:59)
[2022-05-18 04:55] VITALS: BMI 27.3
[2022-05-18] MEDS: INSULIN SLIDING SCALE (NOVOLOG) 1 VIAL SQ SCH ×4 (06:10→21:06)
[2022-05-18 08:26] LABS: BASO % 0.4 % (0-2.0); EOS % 2.2 % (0-4.5); HEMATOCRIT 30.5 % (32.4-45.2); HEMOGLOBIN 10.1 GM/dL (10.7-15.3); LYMPH % 12.3 % (8-40); MCH 28.2 pg (25.7-33.7); MCHC 33.1 g/dl (32.0-36.0); MEAN CELL VOLUME 85.4 fl (80-96); MEAN PLT VOLUME 8.1 fl (7.5-11.1); MONO % 4.8 % (3.8-10.2); NEUT % 80.3 % (42.8-82.8); PLATELET COUNT 166 10^3/uL (134-434); RBC 3.57 M/mm3 (3.60-5.2); RDW 17.7 % (11.6-15.6); WHITE BLOOD COUNT 6.2 K/mm3 (4.0-10.0)
[2022-05-18 08:31] LABS: CALCIUM 7.7 mg/dL (8.5-10.1)
[2022-05-18 08:36] LABS: BILIRUBIN,TOTAL 0.4 mg/dL (0.2-1); TOT PROT 5.2 g/dl (6.4-8.2)
[2022-05-18] MEDS: ISOSORBIDE MONONITRATE 30 MG TAB.SR.24H (FP) PO SCH (10:22)
[2022-05-18] MEDS: CARVEDILOL 12.5 MG TABLET (FP) PO SCH ×2 (10:23→21:06)
[2022-05-18] MEDS: PANTOPRAZOLE SODIUM 40 MG VIAL IVPUSH SCH (10:23)
[2022-05-18] MEDS: POLYETHYLENE GLYCOL (HEALTHYLAX) 3350 17 GM PACKET PO SCH (21:06)
[2022-05-18] MEDS ORDERED: LORazepam 2 MG/ML SDV VIAL IVPUSH ONE (22:00)
[2022-05-19] MEDS: INSULIN SLIDING SCALE (NOVOLOG) 1 VIAL SQ SCH ×4 (06:20→21:20)
[2022-05-19 09:04] LABS: BASO % 0.3 % (0-2.0); EOS % 1.6 % (0-4.5); HEMATOCRIT 33.4 % (32.4-45.2); HEMOGLOBIN 10.8 GM/dL (10.7-15.3); LYMPH % 11.5 % (8-40); MCH 27.9 pg (25.7-33.7); MCHC 32.4 g/dl (32.0-36.0); MEAN CELL VOLUME 86.2 fl (80-96); MEAN PLT VOLUME 7.8 fl (7.5-11.1); MONO % 4.8 % (3.8-10.2); NEUT % 81.8 % (42.8-82.8); PLATELET COUNT 184 10^3/uL (134-434); RBC 3.87 M/mm3 (3.60-5.2); RDW 17.8 % (11.6-15.6); WHITE BLOOD COUNT 6.2 K/mm3 (4.0-10.0)
[2022-05-19 09:29] LABS: ALBUMIN 2.2 g/dl (3.4-5.0); BLOOD UREA NITROGEN 18.6 mg/dL (7-18)
[2022-05-19 09:32] LABS: CREATININE 0.9 mg/dL (0.55-1.3)
[2022-05-19 09:33] LABS: BILIRUBIN,TOTAL 0.6 mg/dL (0.2-1); TOT PROT 5.7 g/dl (6.4-8.2)
[2022-05-19] MEDS: CARVEDILOL 12.5 MG TABLET (FP) PO SCH ×2 (09:35→21:19)
[2022-05-19] MEDS: PANTOPRAZOLE SODIUM 40 MG VIAL IVPUSH SCH (09:35)
[2022-05-19] MEDS: ISOSORBIDE MONONITRATE 30 MG TAB.SR.24H (FP) PO SCH (09:35)
[2022-05-19] MEDS: POLYETHYLENE GLYCOL (HEALTHYLAX) 3350 17 GM PACKET PO SCH ×2 (09:35→21:19)
[2022-05-19] MEDS: hydrALAZINE HCL 10 MG TABLET PO SCH ×2 (09:36→21:19)
[2022-05-19] MEDS: FUROSEMIDE 40 MG TABLET (FP) PO SCH (09:38)
[2022-05-19] MEDS: amLODIPine BESYLATE 5 MG TABLET (FP) PO SCH (09:38)
[2022-05-19] MEDS: ALBUTEROL SO4 2.5/IPRATROPIUM 0.5 INH SOL 3 ML VIAL.NEB. NEB PRN (14:40)
[2022-05-20] MEDS: INSULIN SLIDING SCALE (NOVOLOG) 1 VIAL SQ SCH ×4 (06:19→22:01)
[2022-05-20] MEDS: ISOSORBIDE MONONITRATE 30 MG TAB.SR.24H (FP) PO SCH (09:14)
[2022-05-20] MEDS: PANTOPRAZOLE SODIUM 40 MG VIAL IVPUSH SCH (09:14)
[2022-05-20] MEDS: amLODIPine BESYLATE 5 MG TABLET (FP) PO SCH (09:14)
[2022-05-20] MEDS: FUROSEMIDE 40 MG TABLET (FP) PO SCH (09:14)
[2022-05-20] MEDS: CARVEDILOL 12.5 MG TABLET (FP) PO SCH ×2 (09:14→22:00)
[2022-05-20] MEDS: POLYETHYLENE GLYCOL (HEALTHYLAX) 3350 17 GM PACKET PO SCH ×2 (09:14→22:00)
[2022-05-20] MEDS: hydrALAZINE HCL 10 MG TABLET PO SCH ×2 (09:14→22:00)
[2022-05-20 12:54] LABS: BASO % 0.3 % (0-2.0); EOS % 2.5 % (0-4.5); HEMATOCRIT 29.1 % (32.4-45.2); HEMOGLOBIN 9.7 GM/dL (10.7-15.3); MCH 28.1 pg (25.7-33.7); MCHC 33.2 g/dl (32.0-36.0); MEAN CELL VOLUME 84.6 fl (80-96); MEAN PLT VOLUME 7.6 fl (7.5-11.1); MONO % 7.7 % (3.8-10.2); NEUT % 76.5 % (42.8-82.8); PLATELET COUNT 194 10^3/uL (134-434); RBC 3.44 M/mm3 (3.60-5.2); RDW 17.2 % (11.6-15.6); RETICULOCYTES 1.59 % (0.5-1.5)
[2022-05-20 19:49] LABS: BASO % 0.4 % (0-2.0); EOS % 2.8 % (0-4.5); HEMATOCRIT 28.5 % (32.4-45.2); HEMOGLOBIN 9.5 GM/dL (10.7-15.3); LYMPH % 15.6 % (8-40); MCH 28.1 pg (25.7-33.7); MCHC 33.1 g/dl (32.0-36.0); MEAN CELL VOLUME 84.6 fl (80-96); MEAN PLT VOLUME 7.6 fl (7.5-11.1); MONO % 7.6 % (3.8-10.2); NEUT % 73.6 % (42.8-82.8); PLATELET COUNT 190 10^3/uL (134-434); RBC 3.37 M/mm3 (3.60-5.2); RDW 17.5 % (11.6-15.6); WHITE BLOOD COUNT 4.3 K/mm3 (4.0-10.0)
[2022-05-20 19:56] LABS: CALCIUM 7.7 mg/dL (8.5-10.1); INR 1.04 (0.83-1.09)
[2022-05-20 19:57] LABS: ALBUMIN 1.9 g/dl (3.4-5.0); BLOOD UREA NITROGEN 18.2 mg/dL (7-18)
[2022-05-20 20:00] LABS: CREATININE 1.3 mg/dL (0.55-1.3)
[2022-05-20 20:02] LABS: BILIRUBIN,TOTAL 0.5 mg/dL (0.2-1); TOT PROT 5.1 g/dl (6.4-8.2)
[2022-05-20] MEDS ORDERED: MELATONIN 5 MG TABLETS PO ONE (21:42)
[2022-05-20] MEDS ORDERED: ACETAMINOPHEN 1000 MG/100 ML BAG IVPB ONE (21:43)
[2022-05-21] MEDS: INSULIN SLIDING SCALE (NOVOLOG) 1 VIAL SQ SCH ×4 (06:08→21:14)
[2022-05-21 08:41] LABS: BLOOD UREA NITROGEN 23.5 mg/dL (7-18); CALCIUM 7.8 mg/dL (8.5-10.1)
[2022-05-21 08:44] LABS: CREATININE 1.2 mg/dL (0.55-1.3)
[2022-05-21] MEDS: PANTOPRAZOLE SODIUM 40 MG VIAL IVPUSH SCH (09:11)
[2022-05-21] MEDS: amLODIPine BESYLATE 5 MG TABLET (FP) PO SCH (09:11)
[2022-05-21] MEDS: ISOSORBIDE MONONITRATE 30 MG TAB.SR.24H (FP) PO SCH (09:11)
[2022-05-21] MEDS: hydrALAZINE HCL 10 MG TABLET PO SCH ×2 (09:11→21:13)
[2022-05-21] MEDS: POLYETHYLENE GLYCOL (HEALTHYLAX) 3350 17 GM PACKET PO SCH ×2 (09:11→21:13)
[2022-05-21] MEDS: FUROSEMIDE 40 MG TABLET (FP) PO SCH (09:11)
[2022-05-21] MEDS: CARVEDILOL 12.5 MG TABLET (FP) PO SCH ×2 (09:11→21:13)
[2022-05-21 10:28] LABS: BASO % 0.4 % (0-2.0); EOS % 2.8 % (0-4.5); HEMATOCRIT 28.2 % (32.4-45.2); HEMOGLOBIN 9.4 GM/dL (10.7-15.3); LYMPH % 13.1 % (8-40); MCH 28.4 pg (25.7-33.7); MCHC 33.4 g/dl (32.0-36.0); MEAN CELL VOLUME 84.9 fl (80-96); MEAN PLT VOLUME 7.5 fl (7.5-11.1); MONO % 7.2 % (3.8-10.2); NEUT % 76.5 % (42.8-82.8); PLATELET COUNT 188 10^3/uL (134-434); RBC 3.33 M/mm3 (3.60-5.2); RDW 16.8 % (11.6-15.6); RETICULOCYTES 1.75 % (0.5-1.5); WHITE BLOOD COUNT 4.5 K/mm3 (4.0-10.0)
[2022-05-21] MEDS ORDERED: ACETAMINOPHEN 500 MG TABLET (FP) PO PRN (10:53)
[2022-05-21 14:34] LABS: HIV INTERPRETATION NEGATIVE (NEGATIVE)
[2022-05-21] MEDS ORDERED: MELATONIN 5 MG TABLETS PO PRN (20:18)
[2022-05-21] MEDS: busPIRone HCL 10 MG TABLET (FP) PO SCH (21:13)
[2022-05-21] MEDS ORDERED: MIRTAZAPINE 15 MG TABLET (FP) PO SCH (22:00)
[2022-05-21] MEDS ORDERED: ATORVASTATIN CA 40 MG TABLET (FP) PO SCH (22:00)
[2022-05-22] MEDS: ALBUTEROL SO4 2.5/IPRATROPIUM 0.5 INH SOL 3 ML VIAL.NEB. NEB PRN (03:40)
[2022-05-22] MEDS: INSULIN SLIDING SCALE (NOVOLOG) 1 VIAL SQ SCH ×3 (06:00→17:18)
[2022-05-22] MEDS ORDERED: HEPARIN NA (PORCINE) 5,000 UNITS/ML 1ML VIAL SQ SCH (10:00)
[2022-05-22] MEDS: PANTOPRAZOLE SODIUM 40 MG VIAL IVPUSH SCH (10:23)
[2022-05-22] MEDS: amLODIPine BESYLATE 5 MG TABLET (FP) PO SCH (10:23)
[2022-05-22] MEDS: FUROSEMIDE 40 MG TABLET (FP) PO SCH (10:23)
[2022-05-22] MEDS: CARVEDILOL 12.5 MG TABLET (FP) PO SCH (10:23)
[2022-05-22] MEDS: hydrALAZINE HCL 10 MG TABLET PO SCH (10:24)
[2022-05-22] MEDS: ISOSORBIDE MONONITRATE 30 MG TAB.SR.24H (FP) PO SCH (10:24)
[2022-05-22] MEDS: POLYETHYLENE GLYCOL (HEALTHYLAX) 3350 17 GM PACKET PO SCH (10:24)
[2022-05-22] MEDS: busPIRone HCL 10 MG TABLET (FP) PO SCH (10:24)
[2022-05-22 19:10] VITALS: BP 141/60; PULSE 75; TEMP 98.5
== END 2022-05-22 20:45 | DRG 394 ==
LOC: JER 11:38 → JERBED 15:56 → J4S 19:13
PROVIDERS: ADMIT Family Medicine; ATTEND Family Medicine
DX: K64.9 Unspecified hemorrhoids (principal); I50.42 Chronic combined systolic (congestive) and diastolic (congestive) heart failure; K56.49 Other impaction of intestine; K92.2 Gastrointestinal hemorrhage, unspecified; T45.515A Adverse effect of anticoagulants, initial encounter; E78.5 Hyperlipidemia, unspecified; I10 Essential (primary) hypertension; E03.9 Hypothyroidism, unspecified; K21.9 Gastro-esophageal reflux disease without esophagitis; I25.10 Atherosclerotic heart disease of native coronary artery without angina pectoris; Z98.61 Coronary angioplasty status; E11.9 Type 2 diabetes mellitus without complications
CPT/HCPCS: 0241U-QW; 36415; 71045-TC-FY; 74018-TC-FY; 80048; 80053; 82105; 82272; 82962; 83735; 84450; 84460; 84484; 85025; 85045; 85610; 85730; 86140; 86850; 86900; 86901; 87389; 87522; 93005; 93010; 93970-TC; 94640; 99285-25; J1644

== ENCOUNTER 2022-07-28 12:24 | Inpatient (IN) | payer OTHER ==
[2022-07-28 12:51] VITALS: BMI 32.8
[2022-07-28 14:55] LABS: EPI CELLS 14 /uL (0-25.1); HYALINE CASTS 1 /uL (0-3.1); URINE APPEARANCE CLEAR; URINE BACTERIA 5491 /uL (0-1359); URINE BILIRUBIN NEGATIVE (NEGATIVE); URINE COLOR YELLOW; URINE GLUCOSE (UA) TRACE (NEGATIVE); URINE KETONE NEGATIVE (NEGATIVE); URINE LEUK ESTERASE 1+ (NEGATIVE); URINE NITRITE NEGATIVE (NEGATIVE); URINE PROTEIN 2+ (NEGATIVE); URINE RBC 7 /uL (0-23.9); URINE UROBILINOGEN 0.2 mg/dL (0.2-1.0); URINE WBC 215 /uL (0-25.8)
[2022-07-28 15:23] LABS: CALCIUM 9.3 mg/dL (8.5-10.1)
[2022-07-28] MEDS ORDERED: CEFTRIAXONE 1 GM in DEXTROSE 5%-WATER - 100 ML IVPB ONE (15:23)
[2022-07-28 15:24] LABS: BLOOD UREA NITROGEN 83.3 mg/dL (7-18)
[2022-07-28 15:27] LABS: CREATININE 1.8 mg/dL (0.55-1.3)
[2022-07-28 15:28] LABS: BILIRUBIN,TOTAL 0.4 mg/dL (0.2-1); TOT PROT 8.1 g/dl (6.4-8.2)
[2022-07-28] MEDS ORDERED: CEFTRIAXONE 1 GM/50 ML BAG ONE (15:30)
[2022-07-28] MEDS ORDERED: SODIUM CHLORIDE 0.9% 500 ML INFUS.BAG IV ONE (15:58)
[2022-07-28 17:48] LABS: BASO % 1.1 % (0-2.0); EOS % 1.3 % (0-4.5); HEMATOCRIT 32.4 % (32.4-45.2); HEMOGLOBIN 10.7 GM/dL (10.7-15.3); LYMPH % 22.4 % (8-40); MCH 26.1 pg (25.7-33.7); MCHC 33.1 g/dl (32.0-36.0); MEAN CELL VOLUME 78.8 fl (80-96); MEAN PLT VOLUME 7.1 fl (7.5-11.1); MONO % 7.9 % (3.8-10.2); NEUT % 67.3 % (42.8-82.8); PLATELET COUNT 218 10^3/uL (134-434); RBC 4.12 M/mm3 (3.60-5.2); RDW 19.4 % (11.6-15.6); WHITE BLOOD COUNT 7.2 K/mm3 (4.0-10.0)
[2022-07-28 18:20] LABS: ALBUMIN 2.7 g/dl (3.4-5.0); BLOOD UREA NITROGEN 81.9 mg/dL (7-18); CALCIUM 8.6 mg/dL (8.5-10.1)
[2022-07-28 18:23] LABS: CREATININE 1.8 mg/dL (0.55-1.3)
[2022-07-28 18:25] LABS: BILIRUBIN,TOTAL 0.3 mg/dL (0.2-1); TOT PROT 7.3 g/dl (6.4-8.2)
[2022-07-28 20:11] VITALS: RESP 18
[2022-07-29] MEDS ORDERED: MELATONIN 5 MG TABLETS PO ONE (00:01)
[2022-07-29] MEDS ORDERED: MELATONIN 5 MG TABLETS ONE (00:18)
[2022-07-29 07:40] LABS: BASO % 0.6 % (0-2.0); EOS % 1.7 % (0-4.5); HEMATOCRIT 36.8 % (32.4-45.2); HEMOGLOBIN 11.8 GM/dL (10.7-15.3); LYMPH % 27.7 % (8-40); MCH 25.2 pg (25.7-33.7); MEAN CELL VOLUME 78.7 fl (80-96); MEAN PLT VOLUME 7.6 fl (7.5-11.1); MONO % 7.2 % (3.8-10.2); NEUT % 62.8 % (42.8-82.8); PLATELET COUNT 271 10^3/uL (134-434); RBC 4.67 M/mm3 (3.60-5.2); WHITE BLOOD COUNT 5.8 K/mm3 (4.0-10.0)
[2022-07-29 07:54] LABS: CALCIUM 9.2 mg/dL (8.5-10.1)
[2022-07-29 07:55] LABS: ALBUMIN 2.8 g/dl (3.4-5.0)
[2022-07-29 07:58] LABS: CREATININE 1.4 mg/dL (0.55-1.3)
[2022-07-29 07:59] LABS: BILIRUBIN,TOTAL 0.3 mg/dL (0.2-1); TOT PROT 7.6 g/dl (6.4-8.2)
[2022-07-29] MEDS ORDERED: MAG HYDROX/AL HYDROX/SIMETH 30 ML UNIT-DOSE CUP PO PRN (08:38)
[2022-07-29] MEDS: INSULIN SLIDING SCALE (NOVOLOG) 1 VIAL SQ SCH ×4 (09:13→21:15)
[2022-07-29] MEDS: CEFTRIAXONE 1 GM in DEXTROSE 5%-WATER - 50 ML IVPB SCH (09:39)
[2022-07-29] MEDS: busPIRone HCL 10 MG TABLET (FP) PO SCH ×2 (09:40→21:15)
[2022-07-29] MEDS: amLODIPine BESYLATE 10 MG TABLET (FP) PO SCH (09:40)
[2022-07-29] MEDS: PANTOPRAZOLE 40 MG TABLET PO SCH (09:40)
[2022-07-29] MEDS: CHOLECALCIFEROL (VIT D3) 1,000 UNIT (25 MCG) TABLET PO SCH (09:40)
[2022-07-29] MEDS: CARVEDILOL 12.5 MG TABLET (FP) PO SCH ×2 (09:40→21:14)
[2022-07-29] MEDS: SIMETHICONE 80 MG TAB.CHEW (FP) PO SCH ×3 (12:42→18:54)
[2022-07-29] MEDS: ISOSORBIDE DINITRATE 10 MG TABLET PO SCH ×3 (16:02→18:54)
[2022-07-29] MEDS: ATORVASTATIN CA 40 MG TABLET (FP) PO SCH (21:14)
[2022-07-29] MEDS: MIRTAZAPINE 15 MG TABLET (FP) PO SCH (21:14)
[2022-07-29] MEDS: MELATONIN 5 MG TABLETS PO PRN (21:15)
[2022-07-29] MEDS: HEPARIN NA (PORCINE) 5,000 UNITS/ML 1ML VIAL SQ SCH (21:15)
[2022-07-29] MEDS ORDERED: amLODIPine BESYLATE 5 MG TABLET (FP) PO SCH (22:00)
[2022-07-30] MEDS: LEVOTHYROXINE 25 MCG, LEVOTHYROXINE 112 MCG PO SCH (06:46)
[2022-07-30] MEDS: INSULIN SLIDING SCALE (NOVOLOG) 1 VIAL SQ SCH ×4 (06:46→22:13)
[2022-07-30] MEDS ORDERED: LEVOTHYROXINE NA 25 MCG TABLET (FP) PO SCH (07:00)
[2022-07-30] MEDS: ISOSORBIDE DINITRATE 10 MG TABLET PO SCH ×3 (08:27→18:01)
[2022-07-30] MEDS: SIMETHICONE 80 MG TAB.CHEW (FP) PO SCH ×3 (08:27→16:50)
[2022-07-30] MEDS: CARVEDILOL 12.5 MG TABLET (FP) PO SCH ×2 (10:19→22:10)
[2022-07-30] MEDS: HEPARIN NA (PORCINE) 5,000 UNITS/ML 1ML VIAL SQ SCH ×2 (10:19→22:11)
[2022-07-30] MEDS: PANTOPRAZOLE 40 MG TABLET PO SCH (10:19)
[2022-07-30] MEDS: busPIRone HCL 10 MG TABLET (FP) PO SCH ×2 (10:19→22:11)
[2022-07-30] MEDS: amLODIPine BESYLATE 10 MG TABLET (FP) PO SCH (10:19)
[2022-07-30] MEDS: CHOLECALCIFEROL (VIT D3) 1,000 UNIT (25 MCG) TABLET PO SCH (10:19)
[2022-07-30] MEDS: CEFTRIAXONE 1 GM in DEXTROSE 5%-WATER - 50 ML IVPB SCH (10:20)
[2022-07-30] MEDS: MIRTAZAPINE 15 MG TABLET (FP) PO SCH (22:10)
[2022-07-30] MEDS: ATORVASTATIN CA 40 MG TABLET (FP) PO SCH (22:11)
[2022-07-30] MEDS: MELATONIN 5 MG TABLETS PO PRN (22:41)
[2022-07-31] MEDS: LEVOTHYROXINE 25 MCG, LEVOTHYROXINE 112 MCG PO SCH (06:13)
[2022-07-31] MEDS: INSULIN SLIDING SCALE (NOVOLOG) 1 VIAL SQ SCH ×2 (06:17→11:47)
[2022-07-31] MEDS: SIMETHICONE 80 MG TAB.CHEW (FP) PO SCH ×2 (08:55→11:44)
[2022-07-31] MEDS: ISOSORBIDE DINITRATE 10 MG TABLET PO SCH ×2 (08:55→13:04)
[2022-07-31 09:33] LABS: BLOOD UREA NITROGEN 62.7 mg/dL (7-18)
[2022-07-31 09:36] LABS: CREATININE 1.4 mg/dL (0.55-1.3)
[2022-07-31] MEDS ORDERED: cefTRIAXone SODIUM 1 GM VIAL ONE (09:51)
[2022-07-31] MEDS: PANTOPRAZOLE 40 MG TABLET PO SCH (10:26)
[2022-07-31] MEDS: amLODIPine BESYLATE 10 MG TABLET (FP) PO SCH (10:26)
[2022-07-31] MEDS: CEFTRIAXONE 1 GM in DEXTROSE 5%-WATER - 50 ML IVPB SCH (10:27)
[2022-07-31] MEDS: CARVEDILOL 12.5 MG TABLET (FP) PO SCH (10:27)
[2022-07-31] MEDS: HEPARIN NA (PORCINE) 5,000 UNITS/ML 1ML VIAL SQ SCH (10:27)
[2022-07-31] MEDS: busPIRone HCL 10 MG TABLET (FP) PO SCH (10:27)
[2022-07-31] MEDS: CHOLECALCIFEROL (VIT D3) 1,000 UNIT (25 MCG) TABLET PO SCH (10:27)
[2022-07-31] MEDS ORDERED: INSULIN (NOVOLOG) ASPART 100 UNITS/ML 10ML VIAL ONE (11:47)
[2022-07-31 14:41] VITALS: BP 133/76; PULSE 75; TEMP 97.7
== END 2022-07-31 14:58 | DRG 690 ==
LOC: JER 12:24 → JERBED 22:42 → J5S 07-29 08:02 → J6S 07-30 18:52
PROVIDERS: ADMIT Internal Medicine; ATTEND Internal Medicine
DX: N39.0 Urinary tract infection, site not specified (principal); N17.9 Acute kidney failure, unspecified; K21.9 Gastro-esophageal reflux disease without esophagitis; E11.42 Type 2 diabetes mellitus with diabetic polyneuropathy; D64.9 Anemia, unspecified; I11.0 Hypertensive heart disease with heart failure; E78.5 Hyperlipidemia, unspecified; E03.9 Hypothyroidism, unspecified; F03.90 Unspecified dementia, unspecified severity, without behavioral disturbance, psychotic disturbance, mood disturbance, and anxiety; I25.10 Atherosclerotic heart disease of native coronary artery without angina pectoris; I95.9 Hypotension, unspecified; B96.20 Unspecified Escherichia coli [E. coli] as the cause of diseases classified elsewhere; I50.9 Heart failure, unspecified; B96.1 Klebsiella pneumoniae [K. pneumoniae] as the cause of diseases classified elsewhere
CPT/HCPCS: 36415; 71045-TC-FY; 80048; 80053; 81003; 82962; 83605; 84443; 84484; 85025; 87086; 87186; 93005; 93010; 97116-GP; 97161-GP; 99285-25; C9803-CS; J1644; U0003; U0005

== ENCOUNTER 2023-01-29 20:43 | Emergency (ER) | payer OTHER ==
[2023-01-29 21:04] VITALS: BMI 28.2
[2023-01-29 21:58] LABS: VENOUS BASE EXCESS 0.2 mmol/L (-2-2); VENOUS O2 SATURATION 51.5 % (70-80); VENOUS PCO2 43.8 mmHg (38-52); VENOUS PH 7.382 (7.310-7.410)
[2023-01-29 22:03] LABS: BASO % 0.4 % (0-2.0); EOS % 1.7 % (0-4.5); HEMATOCRIT 33.6 % (32.4-45.2); HEMOGLOBIN 11.2 GM/dL (10.7-15.3); LYMPH % 26.9 % (8-40); MCHC 33.3 g/dl (32.0-36.0); MONO % 7.4 % (3.8-10.2); NEUT % 63.6 % (42.8-82.8); PLATELET COUNT 249 10^3/uL (134-434); RDW 15.2 % (11.6-15.6); WHITE BLOOD COUNT 6.6 K/mm3 (4.0-10.0)
[2023-01-29 22:20] LABS: ALBUMIN 2.8 g/dl (3.4-5.0)
[2023-01-29 22:21] LABS: BLOOD UREA NITROGEN 47.5 mg/dL (7-18); MAGNESIUM 2.1 mg/dL (1.8-2.4)
[2023-01-29 22:23] LABS: CREATININE 1.8 mg/dL (0.55-1.3)
[2023-01-29 22:25] LABS: BILIRUBIN,TOTAL 0.4 mg/dL (0.2-1)
[2023-01-29 22:29] LABS: N-TERMINAL BNP 5246.4 pg/ml (5-450)
[2023-01-29 23:16] LABS: EPI CELLS 14 /uL (0-25.1); HYALINE CASTS 0 /uL (0-3.1); URINE APPEARANCE CLEAR; URINE BACTERIA 243 /uL (0-1359); URINE BILIRUBIN NEGATIVE (NEGATIVE); URINE COLOR YELLOW; URINE GLUCOSE (UA) NEGATIVE (NEGATIVE); URINE KETONE NEGATIVE (NEGATIVE); URINE LEUK ESTERASE TRACE (NEGATIVE); URINE NITRITE NEGATIVE (NEGATIVE); URINE PROTEIN 3+ (NEGATIVE); URINE RBC 20 /uL (0-23.9); URINE UROBILINOGEN 0.2 mg/dL (0.2-1.0); URINE WBC 50 /uL (0-25.8)
[2023-01-30] MEDS ORDERED: MELATONIN 1 MG TABLET PO SCH (03:15)
[2023-01-30 08:38] VITALS: RESP 18; TEMP 98.5
[2023-01-30] MEDS ORDERED: amLODIPine BESYLATE 5 MG TABLET (FP) PO ONE (11:42)
[2023-01-30] MEDS ORDERED: amLODIPine BESYLATE 5 MG TABLET (FP) ONE (11:43)
[2023-01-30 11:48] VITALS: BP 180/75; PULSE 72
== END 2023-01-30 12:23 ==
LOC: JER 20:43
DX: R06.02 Shortness of breath (principal)
CPT/HCPCS: 0241U-QW; 36415; 71045-TC-FY; 80053; 81003; 82010; 82803; 83735; 83880; 84439; 84443; 84484; 85025; 87086; 87186; 93005; 93010; 93971-TC; 99285-25

== ENCOUNTER 2023-05-29 16:07 | Inpatient (IN) | payer OTHER ==
[2023-05-29 18:00] LABS: BASO % 0.1 % (0-2.0); EOS % 0.3 % (0-4.5); HEMATOCRIT 29.3 % (32.4-45.2); HEMOGLOBIN 9.2 GM/dL (10.7-15.3); LYMPH % 13.1 % (8-40); MCH 25.3 pg (25.7-33.7); MCHC 31.3 g/dl (32.0-36.0); MEAN CELL VOLUME 80.6 fl (80-96); MEAN PLT VOLUME 7.6 fl (7.5-11.1); MONO % 8.8 % (3.8-10.2); NEUT % 77.7 % (42.8-82.8); PLATELET COUNT 268 10^3/uL (134-434); RBC 3.64 M/mm3 (3.60-5.2); WHITE BLOOD COUNT 6.4 K/mm3 (4.0-10.0)
[2023-05-29 18:07] LABS: INR 1.18 (0.83-1.09); PROTHROMBIN TIME (PATIENT) 13.7 SEC (9.7-13.0)
[2023-05-29 18:09] LABS: ACTIVATED PTT 30.7 SECONDS (25.2-36.5)
[2023-05-29 18:21] LABS: POTASSIUM 4.7 mmol/L (3.5-5.1)
[2023-05-29 18:21] LABS: EPI CELLS 13 /uL (0-25.1); HYALINE CASTS 1 /uL (0-3.1); PH,URINE 5.5 (5.0-8.0); URINE APPEARANCE CLOUDY; URINE BACTERIA >9,000 /uL (0-1359); URINE BILIRUBIN NEGATIVE (NEGATIVE); URINE COLOR YELLOW; URINE GLUCOSE (UA) NEGATIVE (NEGATIVE); URINE KETONE NEGATIVE (NEGATIVE); URINE LEUK ESTERASE 2+ (NEGATIVE); URINE NITRITE NEGATIVE (NEGATIVE); URINE PROTEIN 3+ (NEGATIVE); URINE RBC 12 /uL (0-23.9); URINE UROBILINOGEN 0.2 mg/dL (0.2-1.0); URINE WBC 679 /uL (0-25.8)
[2023-05-29 18:23] LABS: BLOOD UREA NITROGEN 46.8 mg/dL (7-18); CALCIUM 8.6 mg/dL (8.5-10.1)
[2023-05-29 18:24] LABS: ALBUMIN 2.6 g/dl (3.4-5.0)
[2023-05-29 18:27] LABS: CREATININE 2.2 mg/dL (0.55-1.3)
[2023-05-29 18:28] LABS: BILIRUBIN,TOTAL 0.4 mg/dL (0.2-1); TOT PROT 7.4 g/dl (6.4-8.2)
[2023-05-29] MEDS ORDERED: VANCOMYCIN 1 GM in D5W (PRE-DOCKED) 1,000 MG/250 ML (RESTRICTED TO ID ONLY IVPB ONE (18:41)
[2023-05-29] MEDS ORDERED: PIPERACILLIN/TAZOB 3.375 GM 3.375 GM in DEXTROSE 5%-WATER - 50 ML IVPB ONE (18:41)
[2023-05-29] MEDS ORDERED: FUROSEMIDE 40 MG/4 ML INJECTABLE VIAL IVPUSH ONE (18:50)
[2023-05-29 18:52] LABS: VENOUS BASE EXCESS -2.2 mmol/L (-2-2); VENOUS O2 SATURATION 89.9 % (70-80); VENOUS PH 7.336 (7.310-7.410)
[2023-05-29] MEDS ORDERED: PIPERACILLIN/TAZOB 3.375 GM 3.375 GM/50 ML BAG IVPB ONE (19:59)
[2023-05-29] MEDS ORDERED: VANCOMYCIN/WATER FOR INJ (PEG) 1,000 MG/200 ML BAG IVPB ONE (19:59)
[2023-05-29] MEDS ORDERED: FUROSEMIDE 40 MG/4 ML INJECTABLE VIAL ONE (19:59)
[2023-05-29] MEDS: INSULIN SLIDING SCALE (NOVOLOG) 1 VIAL SQ SCH (22:11)
[2023-05-30] MEDS: PIPERACILLIN/TAZOB 2.25 GM 2.25 GM in DEXTROSE 5%-WATER - 50 ML IVPB SCH ×3 (01:39→10:00)
[2023-05-30] MEDS ORDERED: PIPERACILLIN/TAZOB 2.25 GM 2.25 GM in DEXTROSE 5%-WATER - 50 ML IVPB SCH (02:00)
[2023-05-30] MEDS: INSULIN SLIDING SCALE (NOVOLOG) 1 VIAL SQ SCH ×4 (06:23→22:51)
[2023-05-30] MEDS ORDERED: CARVEDILOL 25 MG TABLET (FP) PO ONE (06:44)
[2023-05-30 07:51] LABS: BASO % 0.2 % (0-2.0); EOS % 1.3 % (0-4.5); HEMOGLOBIN 9.8 GM/dL (10.7-15.3); LYMPH % 16.4 % (8-40); MCH 25.6 pg (25.7-33.7); MCHC 31.7 g/dl (32.0-36.0); MEAN CELL VOLUME 80.8 fl (80-96); MEAN PLT VOLUME 7.5 fl (7.5-11.1); NEUT % 73.1 % (42.8-82.8); PLATELET COUNT 275 10^3/uL (134-434); RBC 3.83 M/mm3 (3.60-5.2); RDW 17.9 % (11.6-15.6); WHITE BLOOD COUNT 5.6 K/mm3 (4.0-10.0)
[2023-05-30 08:10] LABS: POTASSIUM 4.4 mmol/L (3.5-5.1)
[2023-05-30 08:11] LABS: CALCIUM 8.4 mg/dL (8.5-10.1)
[2023-05-30 08:12] LABS: BLOOD UREA NITROGEN 45.2 mg/dL (7-18); MAGNESIUM 2.6 mg/dL (1.8-2.4)
[2023-05-30 08:15] LABS: CREATININE 2.1 mg/dL (0.55-1.3); PHOSPHOROUS 4.7 mg/dL (2.5-4.9)
[2023-05-30] MEDS ORDERED: RIVAROXABAN 15 MG TABLET PO ONE (09:46)
[2023-05-30] MEDS: CHOLECALCIFEROL (VIT D3) 1,000 UNIT (25 MCG) TABLET PO SCH (10:43)
[2023-05-30] MEDS: CARVEDILOL 12.5 MG TABLET (FP) PO SCH ×2 (10:43→21:38)
[2023-05-30] MEDS: busPIRone HCL 10 MG TABLET (FP) PO SCH ×2 (10:43→21:38)
[2023-05-30] MEDS: CEFTRIAXONE 1 GM in DEXTROSE 5%-WATER - 50 ML IVPB SCH (10:43)
[2023-05-30] MEDS: PANTOPRAZOLE 40 MG TABLET PO SCH (10:43)
[2023-05-30] MEDS: FERROUS SO4 325 MG TABLET (FP) PO SCH (10:43)
[2023-05-30] MEDS: POLYETHYLENE GLYCOL (HEALTHYLAX) 3350 17 GM PACKET PO SCH ×2 (10:44→21:38)
[2023-05-30] MEDS: ALBUTEROL SO4 2.5/IPRATROPIUM 0.5 INH SOL 3 ML VIAL.NEB. NEB SCH ×3 (11:40→20:05)
[2023-05-30] MEDS: SIMETHICONE 80 MG TAB.CHEW (FP) PO SCH ×2 (13:00→17:20)
[2023-05-30] MEDS: hydrALAZINE HCL 10 MG TABLET PO SCH ×2 (13:13→21:38)
[2023-05-30] MEDS: ISOSORBIDE DINITRATE 10 MG TABLET PO SCH ×2 (13:14→17:19)
[2023-05-30] MEDS: APIXABAN 2.5 MG TABLET PO SCH (15:00)
[2023-05-30] MEDS ORDERED: INSULIN (NOVOLOG) ASPART 100 UNITS/ML 10ML VIAL ONE (17:05)
[2023-05-30] MEDS: MIRTAZAPINE 15 MG TABLET (FP) PO SCH (21:38)
[2023-05-30] MEDS: amLODIPine BESYLATE 5 MG TABLET (FP) PO SCH (21:38)
[2023-05-30] MEDS: ATORVASTATIN CA 40 MG TABLET (FP) PO SCH (21:38)
[2023-05-31] MEDS: INSULIN SLIDING SCALE (NOVOLOG) 1 VIAL SQ SCH ×4 (06:14→22:43)
[2023-05-31] MEDS: hydrALAZINE HCL 10 MG TABLET PO SCH ×3 (06:14→22:41)
[2023-05-31] MEDS: LEVOTHYROXINE 112 MCG, LEVOTHYROXINE 25 MCG PO SCH (06:19)
[2023-05-31] MEDS ORDERED: LEVOTHYROXINE NA 25 MCG TABLET (FP) PO SCH (07:00)
[2023-05-31] MEDS: SIMETHICONE 80 MG TAB.CHEW (FP) PO SCH ×3 (07:05→17:15)
[2023-05-31] MEDS: ALBUTEROL SO4 2.5/IPRATROPIUM 0.5 INH SOL 3 ML VIAL.NEB. NEB SCH ×4 (07:35→20:05)
[2023-05-31 08:22] LABS: POTASSIUM 4.4 mmol/L (3.5-5.1)
[2023-05-31 08:24] LABS: ALBUMIN 2.8 g/dl (3.4-5.0); BLOOD UREA NITROGEN 43.8 mg/dL (7-18); CALCIUM 8.6 mg/dL (8.5-10.1)
[2023-05-31 08:27] LABS: CREATININE 1.7 mg/dL (0.55-1.3)
[2023-05-31 08:29] LABS: BILIRUBIN,TOTAL 0.4 mg/dL (0.2-1); TOT PROT 7.9 g/dl (6.4-8.2)
[2023-05-31 08:32] LABS: BASO % 0.4 % (0-2.0); EOS % 0.6 % (0-4.5); HEMATOCRIT 32.4 % (32.4-45.2); HEMOGLOBIN 10.2 GM/dL (10.7-15.3); LYMPH % 13.7 % (8-40); MCHC 31.4 g/dl (32.0-36.0); MEAN CELL VOLUME 79.8 fl (80-96); MEAN PLT VOLUME 7.4 fl (7.5-11.1); MONO % 6.8 % (3.8-10.2); NEUT % 78.5 % (42.8-82.8); PLATELET COUNT 325 10^3/uL (134-434); RBC 4.07 M/mm3 (3.60-5.2); WHITE BLOOD COUNT 6.3 K/mm3 (4.0-10.0)
[2023-05-31] MEDS: CHOLECALCIFEROL (VIT D3) 1,000 UNIT (25 MCG) TABLET PO SCH (10:18)
[2023-05-31] MEDS: PANTOPRAZOLE 40 MG TABLET PO SCH (10:18)
[2023-05-31] MEDS: CARVEDILOL 12.5 MG TABLET (FP) PO SCH ×2 (10:18→22:41)
[2023-05-31] MEDS: busPIRone HCL 10 MG TABLET (FP) PO SCH ×2 (10:18→22:41)
[2023-05-31] MEDS: APIXABAN 2.5 MG TABLET PO SCH (10:19)
[2023-05-31] MEDS: POLYETHYLENE GLYCOL (HEALTHYLAX) 3350 17 GM PACKET PO SCH ×2 (10:19→22:41)
[2023-05-31] MEDS: ISOSORBIDE DINITRATE 10 MG TABLET PO SCH ×3 (10:19→18:14)
[2023-05-31] MEDS: FERROUS SO4 325 MG TABLET (FP) PO SCH (10:19)
[2023-05-31] MEDS: CEFTRIAXONE 1 GM in DEXTROSE 5%-WATER - 50 ML IVPB SCH (10:20)
[2023-05-31] MEDS: FUROSEMIDE 40 MG/4 ML INJECTABLE VIAL IVPUSH SCH ×2 (11:16→13:40)
[2023-05-31] MEDS ORDERED: INSULIN (NOVOLOG) ASPART 100 UNITS/ML 10ML VIAL ONE (11:23)
[2023-05-31] MEDS: MIRTAZAPINE 15 MG TABLET (FP) PO SCH (22:41)
[2023-05-31] MEDS: amLODIPine BESYLATE 5 MG TABLET (FP) PO SCH (22:41)
[2023-05-31] MEDS: ATORVASTATIN CA 40 MG TABLET (FP) PO SCH (22:41)
[2023-06-01] MEDS: FUROSEMIDE 40 MG/4 ML INJECTABLE VIAL IVPUSH SCH ×2 (05:54→14:30)
[2023-06-01] MEDS: hydrALAZINE HCL 10 MG TABLET PO SCH ×3 (05:54→23:02)
[2023-06-01] MEDS ORDERED: INSULIN (NOVOLOG) ASPART 100 UNITS/ML 10ML VIAL ONE ×2 (06:38→11:51)
[2023-06-01] MEDS: INSULIN SLIDING SCALE (NOVOLOG) 1 VIAL SQ SCH ×4 (06:40→23:03)
[2023-06-01] MEDS: LEVOTHYROXINE 112 MCG, LEVOTHYROXINE 25 MCG PO SCH (06:40)
[2023-06-01 07:44] LABS: POTASSIUM 4.3 mmol/L (3.5-5.1)
[2023-06-01 07:49] LABS: BLOOD UREA NITROGEN 42.1 mg/dL (7-18); CALCIUM 8.8 mg/dL (8.5-10.1)
[2023-06-01 07:53] LABS: CREATININE 1.5 mg/dL (0.55-1.3)
[2023-06-01] MEDS: ALBUTEROL SO4 2.5/IPRATROPIUM 0.5 INH SOL 3 ML VIAL.NEB. NEB SCH ×4 (08:18→20:24)
[2023-06-01] MEDS: SIMETHICONE 80 MG TAB.CHEW (FP) PO SCH ×3 (09:00→17:01)
[2023-06-01] MEDS: ISOSORBIDE DINITRATE 10 MG TABLET PO SCH ×3 (09:00→17:01)
[2023-06-01] MEDS: CHOLECALCIFEROL (VIT D3) 1,000 UNIT (25 MCG) TABLET PO SCH (09:59)
[2023-06-01] MEDS: PANTOPRAZOLE 40 MG TABLET PO SCH (09:59)
[2023-06-01] MEDS: CEFTRIAXONE 1 GM in DEXTROSE 5%-WATER - 50 ML IVPB SCH (09:59)
[2023-06-01] MEDS: busPIRone HCL 10 MG TABLET (FP) PO SCH ×2 (09:59→23:03)
[2023-06-01] MEDS: FERROUS SO4 325 MG TABLET (FP) PO SCH (09:59)
[2023-06-01] MEDS: POLYETHYLENE GLYCOL (HEALTHYLAX) 3350 17 GM PACKET PO SCH ×2 (09:59→23:01)
[2023-06-01] MEDS: APIXABAN 2.5 MG TABLET PO SCH (10:00)
[2023-06-01] MEDS: CARVEDILOL 12.5 MG TABLET (FP) PO SCH ×2 (10:00→23:03)
[2023-06-01] MEDS ORDERED: ACETAMINOPHEN 325 MG TABLET (FP) PO PRN (10:20)
[2023-06-01] MEDS: ATORVASTATIN CA 40 MG TABLET (FP) PO SCH (23:02)
[2023-06-01] MEDS: MELATONIN 5 MG TABLETS PO PRN (23:03)
[2023-06-01] MEDS: amLODIPine BESYLATE 5 MG TABLET (FP) PO SCH (23:03)
[2023-06-01] MEDS: MIRTAZAPINE 15 MG TABLET (FP) PO SCH (23:03)
[2023-06-02] MEDS: hydrALAZINE HCL 10 MG TABLET PO SCH ×3 (06:54→21:18)
[2023-06-02] MEDS: FUROSEMIDE 40 MG/4 ML INJECTABLE VIAL IVPUSH SCH ×2 (06:54→13:22)
[2023-06-02] MEDS: INSULIN SLIDING SCALE (NOVOLOG) 1 VIAL SQ SCH ×4 (06:54→21:20)
[2023-06-02] MEDS: LEVOTHYROXINE 112 MCG, LEVOTHYROXINE 25 MCG PO SCH (07:04)
[2023-06-02] MEDS: ALBUTEROL SO4 2.5/IPRATROPIUM 0.5 INH SOL 3 ML VIAL.NEB. NEB SCH ×4 (07:40→20:15)
[2023-06-02 07:54] LABS: BASO % 0.4 % (0-2.0); EOS % 0.8 % (0-4.5); HEMATOCRIT 30.5 % (32.4-45.2); HEMOGLOBIN 9.8 GM/dL (10.7-15.3); LYMPH % 14.2 % (8-40); MCH 25.3 pg (25.7-33.7); MCHC 32.1 g/dl (32.0-36.0); MEAN PLT VOLUME 7.5 fl (7.5-11.1); MONO % 7.3 % (3.8-10.2); NEUT % 77.3 % (42.8-82.8); PLATELET COUNT 302 10^3/uL (134-434); RBC 3.86 M/mm3 (3.60-5.2); RDW 17.9 % (11.6-15.6); WHITE BLOOD COUNT 6.6 K/mm3 (4.0-10.0)
[2023-06-02 07:58] LABS: POTASSIUM 4.3 mmol/L (3.5-5.1)
[2023-06-02 08:06] LABS: ALBUMIN 2.6 g/dl (3.4-5.0); BLOOD UREA NITROGEN 42.3 mg/dL (7-18); CREATININE 1.6 mg/dL (0.55-1.3)
[2023-06-02 08:07] LABS: BILIRUBIN,TOTAL 0.4 mg/dL (0.2-1); TOT PROT 7.5 g/dl (6.4-8.2)
[2023-06-02 08:08] LABS: CALCIUM 8.5 mg/dL (8.5-10.1)
[2023-06-02] MEDS: ISOSORBIDE DINITRATE 10 MG TABLET PO SCH ×3 (09:00→17:27)
[2023-06-02] MEDS: SIMETHICONE 80 MG TAB.CHEW (FP) PO SCH ×3 (09:00→16:45)
[2023-06-02] MEDS: CEFTRIAXONE 1 GM in DEXTROSE 5%-WATER - 50 ML IVPB SCH (09:53)
[2023-06-02] MEDS: CHOLECALCIFEROL (VIT D3) 1,000 UNIT (25 MCG) TABLET PO SCH (09:53)
[2023-06-02] MEDS: CARVEDILOL 12.5 MG TABLET (FP) PO SCH ×2 (09:53→21:18)
[2023-06-02] MEDS: PANTOPRAZOLE 40 MG TABLET PO SCH (09:53)
[2023-06-02] MEDS: busPIRone HCL 10 MG TABLET (FP) PO SCH ×2 (09:54→21:20)
[2023-06-02] MEDS: FERROUS SO4 325 MG TABLET (FP) PO SCH (09:54)
[2023-06-02] MEDS: POLYETHYLENE GLYCOL (HEALTHYLAX) 3350 17 GM PACKET PO SCH ×2 (10:09→21:25)
[2023-06-02] MEDS: APIXABAN 2.5 MG TABLET PO SCH ×2 (10:22→21:18)
[2023-06-02] MEDS ORDERED: INSULIN (NOVOLOG) ASPART 100 UNITS/ML 10ML VIAL ONE ×2 (11:03→21:16)
[2023-06-02] MEDS: MIRTAZAPINE 15 MG TABLET (FP) PO SCH (21:18)
[2023-06-02] MEDS: amLODIPine BESYLATE 5 MG TABLET (FP) PO SCH (21:19)
[2023-06-02] MEDS: ATORVASTATIN CA 40 MG TABLET (FP) PO SCH (21:19)
[2023-06-02] MEDS: MELATONIN 5 MG TABLETS PO PRN (23:39)
[2023-06-03] MEDS ORDERED: INSULIN (NOVOLOG) ASPART 100 UNITS/ML 10ML VIAL ONE ×3 (06:12→21:17)
[2023-06-03] MEDS: LEVOTHYROXINE 112 MCG, LEVOTHYROXINE 25 MCG PO SCH (06:17)
[2023-06-03] MEDS: hydrALAZINE HCL 10 MG TABLET PO SCH ×3 (06:17→21:42)
[2023-06-03] MEDS: FUROSEMIDE 40 MG/4 ML INJECTABLE VIAL IVPUSH SCH ×2 (06:17→15:44)
[2023-06-03] MEDS: INSULIN SLIDING SCALE (NOVOLOG) 1 VIAL SQ SCH ×4 (06:18→21:43)
[2023-06-03] MEDS: ALBUTEROL SO4 2.5/IPRATROPIUM 0.5 INH SOL 3 ML VIAL.NEB. NEB SCH ×4 (08:02→20:17)
[2023-06-03 08:41] LABS: POTASSIUM 4.5 mmol/L (3.5-5.1)
[2023-06-03 08:46] LABS: CALCIUM 8.5 mg/dL (8.5-10.1)
[2023-06-03 08:49] LABS: CREATININE 1.5 mg/dL (0.55-1.3)
[2023-06-03] MEDS: POLYETHYLENE GLYCOL (HEALTHYLAX) 3350 17 GM PACKET PO SCH ×2 (10:33→21:42)
[2023-06-03] MEDS: CEFTRIAXONE 1 GM in DEXTROSE 5%-WATER - 50 ML IVPB SCH (10:34)
[2023-06-03] MEDS: FERROUS SO4 325 MG TABLET (FP) PO SCH (10:38)
[2023-06-03] MEDS: ISOSORBIDE DINITRATE 10 MG TABLET PO SCH ×3 (10:38→17:39)
[2023-06-03] MEDS: PANTOPRAZOLE 40 MG TABLET PO SCH (10:39)
[2023-06-03] MEDS: busPIRone HCL 10 MG TABLET (FP) PO SCH ×2 (10:39→21:42)
[2023-06-03] MEDS: SIMETHICONE 80 MG TAB.CHEW (FP) PO SCH ×3 (10:39→17:39)
[2023-06-03] MEDS: CARVEDILOL 12.5 MG TABLET (FP) PO SCH ×2 (10:39→21:41)
[2023-06-03] MEDS: APIXABAN 2.5 MG TABLET PO SCH ×2 (10:39→21:42)
[2023-06-03] MEDS: CHOLECALCIFEROL (VIT D3) 1,000 UNIT (25 MCG) TABLET PO SCH (10:39)
[2023-06-03 12:22] LABS: HEMATOCRIT 31.1 % (32.4-45.2); HEMOGLOBIN 9.8 GM/dL (10.7-15.3); MCH 25.2 pg (25.7-33.7); MCHC 31.6 g/dl (32.0-36.0); MEAN CELL VOLUME 79.7 fl (80-96); MEAN PLT VOLUME 7.4 fl (7.5-11.1); PLATELET COUNT 332 10^3/uL (134-434); RDW 18.2 % (11.6-15.6); WHITE BLOOD COUNT 6.6 K/mm3 (4.0-10.0)
[2023-06-03] MEDS: MIRTAZAPINE 15 MG TABLET (FP) PO SCH (21:41)
[2023-06-03] MEDS: ATORVASTATIN CA 40 MG TABLET (FP) PO SCH (21:42)
[2023-06-03] MEDS: amLODIPine BESYLATE 5 MG TABLET (FP) PO SCH (21:42)
[2023-06-04] MEDS ORDERED: INSULIN (NOVOLOG) ASPART 100 UNITS/ML 10ML VIAL ONE ×3 (05:56→22:48)
[2023-06-04] MEDS: FUROSEMIDE 40 MG/4 ML INJECTABLE VIAL IVPUSH SCH ×2 (06:14→14:46)
[2023-06-04] MEDS: hydrALAZINE HCL 10 MG TABLET PO SCH ×3 (06:14→22:52)
[2023-06-04] MEDS: LEVOTHYROXINE 112 MCG, LEVOTHYROXINE 25 MCG PO SCH (06:14)
[2023-06-04] MEDS: INSULIN SLIDING SCALE (NOVOLOG) 1 VIAL SQ SCH ×4 (06:16→22:51)
[2023-06-04 07:49] LABS: HEMATOCRIT 30.5 % (32.4-45.2); MCH 25.7 pg (25.7-33.7); MCHC 32.8 g/dl (32.0-36.0); MEAN CELL VOLUME 78.2 fl (80-96); MEAN PLT VOLUME 6.9 fl (7.5-11.1); PLATELET COUNT 344 10^3/uL (134-434); WHITE BLOOD COUNT 6.5 K/mm3 (4.0-10.0)
[2023-06-04 08:14] LABS: POTASSIUM 4.8 mmol/L (3.5-5.1)
[2023-06-04] MEDS: ALBUTEROL SO4 2.5/IPRATROPIUM 0.5 INH SOL 3 ML VIAL.NEB. NEB SCH (08:25)
[2023-06-04] MEDS: CARVEDILOL 12.5 MG TABLET (FP) PO SCH ×2 (09:41→22:53)
[2023-06-04] MEDS: ISOSORBIDE DINITRATE 10 MG TABLET PO SCH ×3 (09:41→18:10)
[2023-06-04] MEDS: FERROUS SO4 325 MG TABLET (FP) PO SCH (09:41)
[2023-06-04] MEDS: APIXABAN 2.5 MG TABLET PO SCH ×2 (09:41→22:53)
[2023-06-04] MEDS: PANTOPRAZOLE 40 MG TABLET PO SCH (09:41)
[2023-06-04] MEDS: busPIRone HCL 10 MG TABLET (FP) PO SCH ×2 (09:41→22:51)
[2023-06-04] MEDS: CHOLECALCIFEROL (VIT D3) 1,000 UNIT (25 MCG) TABLET PO SCH (09:41)
[2023-06-04] MEDS: POLYETHYLENE GLYCOL (HEALTHYLAX) 3350 17 GM PACKET PO SCH ×2 (09:42→22:52)
[2023-06-04] MEDS: CEFTRIAXONE 1 GM in DEXTROSE 5%-WATER - 50 ML IVPB SCH (09:42)
[2023-06-04] MEDS: SIMETHICONE 80 MG TAB.CHEW (FP) PO SCH ×3 (09:50→18:10)
[2023-06-04 11:40] LABS: CALCIUM 8.2 mg/dL (8.5-10.1)
[2023-06-04 11:42] LABS: BLOOD UREA NITROGEN 37.4 mg/dL (7-18)
[2023-06-04 11:44] LABS: CREATININE 1.4 mg/dL (0.55-1.3)
[2023-06-04] MEDS ORDERED: PIPERACILLIN/TAZOB 3.375 GM 3.375 GM in DEXTROSE 5%-WATER - 50 ML IVPB SCH (12:45)
[2023-06-04] MEDS: PIPERACILLIN/TAZOB 3.375 GM 3.375 GM in DEXTROSE 5%-WATER - 50 ML IVPB SCH (18:11)
[2023-06-04] MEDS: MIRTAZAPINE 15 MG TABLET (FP) PO SCH (22:51)
[2023-06-04] MEDS: ATORVASTATIN CA 40 MG TABLET (FP) PO SCH (22:52)
[2023-06-04] MEDS: amLODIPine BESYLATE 5 MG TABLET (FP) PO SCH (22:52)
[2023-06-04] MEDS: MELATONIN 5 MG TABLETS PO PRN (22:52)
[2023-06-05] MEDS: PIPERACILLIN/TAZOB 3.375 GM 3.375 GM in DEXTROSE 5%-WATER - 50 ML IVPB SCH ×3 (03:07→17:56)
[2023-06-05] MEDS ORDERED: INSULIN (NOVOLOG) ASPART 100 UNITS/ML 10ML VIAL ONE ×3 (06:35→21:59)
[2023-06-05] MEDS: hydrALAZINE HCL 10 MG TABLET PO SCH ×3 (06:40→21:18)
[2023-06-05] MEDS: INSULIN SLIDING SCALE (NOVOLOG) 1 VIAL SQ SCH ×4 (06:40→22:00)
[2023-06-05] MEDS: FUROSEMIDE 40 MG/4 ML INJECTABLE VIAL IVPUSH SCH ×2 (06:40→14:47)
[2023-06-05] MEDS: LEVOTHYROXINE 112 MCG, LEVOTHYROXINE 25 MCG PO SCH (06:40)
[2023-06-05 07:27] LABS: BASO % 0.6 % (0-2.0); EOS % 2.3 % (0-4.5); HEMATOCRIT 29.8 % (32.4-45.2); HEMOGLOBIN 9.6 GM/dL (10.7-15.3); LYMPH % 15.5 % (8-40); MCH 25.5 pg (25.7-33.7); MEAN CELL VOLUME 79.5 fl (80-96); MEAN PLT VOLUME 7.2 fl (7.5-11.1); MONO % 6.7 % (3.8-10.2); NEUT % 74.9 % (42.8-82.8); PLATELET COUNT 340 10^3/uL (134-434); RBC 3.75 M/mm3 (3.60-5.2); RDW 17.8 % (11.6-15.6); WHITE BLOOD COUNT 6.5 K/mm3 (4.0-10.0)
[2023-06-05 07:38] LABS: POTASSIUM 4.7 mmol/L (3.5-5.1)
[2023-06-05 07:49] LABS: ALBUMIN 2.4 g/dl (3.4-5.0); BLOOD UREA NITROGEN 34.2 mg/dL (7-18); CALCIUM 7.8 mg/dL (8.5-10.1)
[2023-06-05 07:51] LABS: CREATININE 1.4 mg/dL (0.55-1.3)
[2023-06-05 07:53] LABS: BILIRUBIN,TOTAL 0.3 mg/dL (0.2-1)
[2023-06-05] MEDS: ISOSORBIDE DINITRATE 10 MG TABLET PO SCH ×3 (09:00→17:56)
[2023-06-05] MEDS: APIXABAN 2.5 MG TABLET PO SCH ×2 (09:47→21:18)
[2023-06-05] MEDS: FERROUS SO4 325 MG TABLET (FP) PO SCH (09:47)
[2023-06-05] MEDS: PANTOPRAZOLE 40 MG TABLET PO SCH (09:47)
[2023-06-05] MEDS: busPIRone HCL 10 MG TABLET (FP) PO SCH ×2 (09:47→21:18)
[2023-06-05] MEDS: SIMETHICONE 80 MG TAB.CHEW (FP) PO SCH ×3 (09:47→17:56)
[2023-06-05] MEDS: CARVEDILOL 12.5 MG TABLET (FP) PO SCH ×2 (09:47→21:18)
[2023-06-05] MEDS: CHOLECALCIFEROL (VIT D3) 1,000 UNIT (25 MCG) TABLET PO SCH (09:47)
[2023-06-05] MEDS: POLYETHYLENE GLYCOL (HEALTHYLAX) 3350 17 GM PACKET PO SCH ×2 (09:47→21:18)
[2023-06-05] MEDS ORDERED: ALBUTEROL SO4 2.5/IPRATROPIUM 0.5 INH SOL 3 ML VIAL.NEB. NEB PRN (12:40)
[2023-06-05] MEDS: MIRTAZAPINE 15 MG TABLET (FP) PO SCH (21:17)
[2023-06-05] MEDS: ATORVASTATIN CA 40 MG TABLET (FP) PO SCH (21:18)
[2023-06-05] MEDS: amLODIPine BESYLATE 5 MG TABLET (FP) PO SCH (21:18)
[2023-06-06] MEDS: PIPERACILLIN/TAZOB 3.375 GM 3.375 GM in DEXTROSE 5%-WATER - 50 ML IVPB SCH ×3 (03:00→17:52)
[2023-06-06] MEDS: LEVOTHYROXINE 112 MCG, LEVOTHYROXINE 25 MCG PO SCH (06:57)
[2023-06-06] MEDS: INSULIN SLIDING SCALE (NOVOLOG) 1 VIAL SQ SCH ×4 (06:57→22:00)
[2023-06-06] MEDS: hydrALAZINE HCL 10 MG TABLET PO SCH ×3 (06:57→21:52)
[2023-06-06] MEDS: FUROSEMIDE 40 MG/4 ML INJECTABLE VIAL IVPUSH SCH ×2 (06:57→13:58)
[2023-06-06 08:37] LABS: POTASSIUM 4.8 mmol/L (3.5-5.1)
[2023-06-06 08:44] LABS: BLOOD UREA NITROGEN 32.9 mg/dL (7-18); CALCIUM 8.4 mg/dL (8.5-10.1)
[2023-06-06 08:48] LABS: CREATININE 1.5 mg/dL (0.55-1.3)
[2023-06-06] MEDS: ISOSORBIDE DINITRATE 10 MG TABLET PO SCH ×3 (09:24→17:53)
[2023-06-06] MEDS: APIXABAN 2.5 MG TABLET PO SCH ×2 (09:25→21:52)
[2023-06-06] MEDS: FERROUS SO4 325 MG TABLET (FP) PO SCH (09:25)
[2023-06-06] MEDS: busPIRone HCL 10 MG TABLET (FP) PO SCH ×2 (09:25→21:52)
[2023-06-06] MEDS: CARVEDILOL 12.5 MG TABLET (FP) PO SCH ×2 (09:25→21:51)
[2023-06-06] MEDS: CHOLECALCIFEROL (VIT D3) 1,000 UNIT (25 MCG) TABLET PO SCH (09:25)
[2023-06-06] MEDS: PANTOPRAZOLE 40 MG TABLET PO SCH (09:25)
[2023-06-06] MEDS: POLYETHYLENE GLYCOL (HEALTHYLAX) 3350 17 GM PACKET PO SCH ×2 (09:25→21:53)
[2023-06-06] MEDS: SIMETHICONE 80 MG TAB.CHEW (FP) PO SCH ×3 (09:26→17:53)
[2023-06-06 15:18] VITALS: BMI 29.8
[2023-06-06] MEDS: MIRTAZAPINE 15 MG TABLET (FP) PO SCH (21:51)
[2023-06-06] MEDS: ATORVASTATIN CA 40 MG TABLET (FP) PO SCH (21:51)
[2023-06-06] MEDS: amLODIPine BESYLATE 5 MG TABLET (FP) PO SCH (21:52)
[2023-06-06] MEDS ORDERED: INSULIN (NOVOLOG) ASPART 100 UNITS/ML 10ML VIAL ONE (22:02)
[2023-06-07] MEDS: PIPERACILLIN/TAZOB 3.375 GM 3.375 GM in DEXTROSE 5%-WATER - 50 ML IVPB SCH ×3 (02:49→17:27)
[2023-06-07] MEDS: INSULIN SLIDING SCALE (NOVOLOG) 1 VIAL SQ SCH ×4 (06:28→22:42)
[2023-06-07] MEDS: hydrALAZINE HCL 10 MG TABLET PO SCH ×3 (06:28→22:28)
[2023-06-07] MEDS: FUROSEMIDE 40 MG/4 ML INJECTABLE VIAL IVPUSH SCH ×2 (06:28→13:59)
[2023-06-07] MEDS: LEVOTHYROXINE 112 MCG, LEVOTHYROXINE 25 MCG PO SCH (06:28)
[2023-06-07] MEDS: busPIRone HCL 10 MG TABLET (FP) PO SCH ×2 (09:48→22:29)
[2023-06-07] MEDS: PANTOPRAZOLE 40 MG TABLET PO SCH (09:48)
[2023-06-07] MEDS: APIXABAN 2.5 MG TABLET PO SCH ×2 (09:48→22:28)
[2023-06-07] MEDS: SIMETHICONE 80 MG TAB.CHEW (FP) PO SCH ×3 (09:48→17:26)
[2023-06-07] MEDS: CARVEDILOL 12.5 MG TABLET (FP) PO SCH ×2 (09:48→22:28)
[2023-06-07] MEDS: FERROUS SO4 325 MG TABLET (FP) PO SCH (09:48)
[2023-06-07] MEDS: CHOLECALCIFEROL (VIT D3) 1,000 UNIT (25 MCG) TABLET PO SCH (09:48)
[2023-06-07] MEDS: ISOSORBIDE DINITRATE 10 MG TABLET PO SCH ×3 (09:49→17:27)
[2023-06-07] MEDS: POLYETHYLENE GLYCOL (HEALTHYLAX) 3350 17 GM PACKET PO SCH ×2 (09:49→22:29)
[2023-06-07 10:37] LABS: POTASSIUM 4.4 mmol/L (3.5-5.1)
[2023-06-07 10:40] LABS: CALCIUM 8.6 mg/dL (8.5-10.1)
[2023-06-07 10:44] LABS: CREATININE 1.6 mg/dL (0.55-1.3)
[2023-06-07] MEDS: ATORVASTATIN CA 40 MG TABLET (FP) PO SCH (22:28)
[2023-06-07] MEDS: MELATONIN 5 MG TABLETS PO PRN (22:28)
[2023-06-07] MEDS: amLODIPine BESYLATE 5 MG TABLET (FP) PO SCH (22:29)
[2023-06-07] MEDS ORDERED: INSULIN (NOVOLOG) ASPART 100 UNITS/ML 10ML VIAL ONE (22:37)
[2023-06-07] MEDS: MIRTAZAPINE 15 MG TABLET (FP) PO SCH (22:42)
[2023-06-08] MEDS: PIPERACILLIN/TAZOB 3.375 GM 3.375 GM in DEXTROSE 5%-WATER - 50 ML IVPB SCH ×3 (02:45→17:05)
[2023-06-08] MEDS: hydrALAZINE HCL 10 MG TABLET PO SCH ×3 (07:32→21:31)
[2023-06-08] MEDS: INSULIN SLIDING SCALE (NOVOLOG) 1 VIAL SQ SCH ×4 (07:33→22:02)
[2023-06-08] MEDS: glipiZIDE-XL 2.5 MG TAB.ER.24 PO SCH ×2 (07:38→07:46)
[2023-06-08] MEDS: LEVOTHYROXINE 112 MCG, LEVOTHYROXINE 25 MCG PO SCH ×2 (07:38→07:45)
[2023-06-08] MEDS: TORSEMIDE 10 MG TABLET PO SCH ×3 (07:39→14:48)
[2023-06-08] MEDS: SIMETHICONE 80 MG TAB.CHEW (FP) PO SCH ×3 (07:51→16:44)
[2023-06-08] MEDS: ISOSORBIDE DINITRATE 10 MG TABLET PO SCH ×3 (07:51→17:05)
[2023-06-08] MEDS: CARVEDILOL 12.5 MG TABLET (FP) PO SCH ×2 (10:08→21:31)
[2023-06-08] MEDS: POLYETHYLENE GLYCOL (HEALTHYLAX) 3350 17 GM PACKET PO SCH ×2 (10:08→21:30)
[2023-06-08] MEDS: CHOLECALCIFEROL (VIT D3) 1,000 UNIT (25 MCG) TABLET PO SCH (10:08)
[2023-06-08] MEDS: APIXABAN 2.5 MG TABLET PO SCH ×2 (10:08→21:31)
[2023-06-08] MEDS: PANTOPRAZOLE 40 MG TABLET PO SCH (10:08)
[2023-06-08] MEDS: FERROUS SO4 325 MG TABLET (FP) PO SCH (10:08)
[2023-06-08] MEDS: busPIRone HCL 10 MG TABLET (FP) PO SCH ×2 (10:08→21:31)
[2023-06-08] MEDS: MIRTAZAPINE 15 MG TABLET (FP) PO SCH (21:31)
[2023-06-08] MEDS: ATORVASTATIN CA 40 MG TABLET (FP) PO SCH (21:31)
[2023-06-08] MEDS: amLODIPine BESYLATE 5 MG TABLET (FP) PO SCH (21:31)
[2023-06-08] MEDS: MELATONIN 5 MG TABLETS PO PRN (21:32)
[2023-06-08] MEDS ORDERED: INSULIN (NOVOLOG) ASPART 100 UNITS/ML 10ML VIAL ONE (21:43)
[2023-06-09] MEDS: PIPERACILLIN/TAZOB 3.375 GM 3.375 GM in DEXTROSE 5%-WATER - 50 ML IVPB SCH ×2 (02:37→10:47)
[2023-06-09] MEDS ORDERED: INSULIN (NOVOLOG) ASPART 100 UNITS/ML 10ML VIAL ONE ×4 (05:54→21:28)
[2023-06-09] MEDS: hydrALAZINE HCL 10 MG TABLET PO SCH ×3 (06:14→21:26)
[2023-06-09] MEDS: TORSEMIDE 10 MG TABLET PO SCH ×2 (06:14→13:08)
[2023-06-09] MEDS: INSULIN SLIDING SCALE (NOVOLOG) 1 VIAL SQ SCH ×4 (06:15→21:30)
[2023-06-09] MEDS: glipiZIDE-XL 2.5 MG TAB.ER.24 PO SCH (07:50)
[2023-06-09] MEDS: LEVOTHYROXINE 112 MCG, LEVOTHYROXINE 25 MCG PO SCH (07:50)
[2023-06-09] MEDS: ISOSORBIDE DINITRATE 10 MG TABLET PO SCH ×3 (09:00→18:37)
[2023-06-09] MEDS: SIMETHICONE 80 MG TAB.CHEW (FP) PO SCH ×3 (09:00→17:30)
[2023-06-09] MEDS: PANTOPRAZOLE 40 MG TABLET PO SCH (10:37)
[2023-06-09] MEDS: POLYETHYLENE GLYCOL (HEALTHYLAX) 3350 17 GM PACKET PO SCH ×2 (10:37→21:27)
[2023-06-09] MEDS: APIXABAN 2.5 MG TABLET PO SCH ×2 (10:37→21:27)
[2023-06-09] MEDS: FERROUS SO4 325 MG TABLET (FP) PO SCH (10:37)
[2023-06-09] MEDS: CHOLECALCIFEROL (VIT D3) 1,000 UNIT (25 MCG) TABLET PO SCH (10:37)
[2023-06-09] MEDS: CARVEDILOL 12.5 MG TABLET (FP) PO SCH ×2 (10:37→21:26)
[2023-06-09] MEDS: busPIRone HCL 10 MG TABLET (FP) PO SCH ×2 (10:37→21:26)
[2023-06-09] MEDS: MIRTAZAPINE 15 MG TABLET (FP) PO SCH (21:26)
[2023-06-09] MEDS: amLODIPine BESYLATE 5 MG TABLET (FP) PO SCH (21:26)
[2023-06-09] MEDS: ATORVASTATIN CA 40 MG TABLET (FP) PO SCH (21:26)
[2023-06-10] MEDS: INSULIN SLIDING SCALE (NOVOLOG) 1 VIAL SQ SCH (06:31)
[2023-06-10] MEDS: glipiZIDE-XL 2.5 MG TAB.ER.24 PO SCH (06:31)
[2023-06-10] MEDS: hydrALAZINE HCL 10 MG TABLET PO SCH (06:31)
[2023-06-10] MEDS: TORSEMIDE 10 MG TABLET PO SCH (06:31)
[2023-06-10] MEDS: LEVOTHYROXINE 112 MCG, LEVOTHYROXINE 25 MCG PO SCH (06:31)
[2023-06-10] MEDS ORDERED: AMOX TR/POT CLAV 500MG/125MG TABLETS (FP) PO SCH (08:00)
[2023-06-10] MEDS: ISOSORBIDE DINITRATE 10 MG TABLET PO SCH (08:44)
[2023-06-10] MEDS: SIMETHICONE 80 MG TAB.CHEW (FP) PO SCH (08:44)
[2023-06-10 09:10] VITALS: BP 177/75; PULSE 80; RESP 19; TEMP 99.1
[2023-06-10] MEDS: CHOLECALCIFEROL (VIT D3) 1,000 UNIT (25 MCG) TABLET PO SCH (10:22)
[2023-06-10] MEDS: PANTOPRAZOLE 40 MG TABLET PO SCH (10:22)
[2023-06-10] MEDS: APIXABAN 2.5 MG TABLET PO SCH (10:22)
[2023-06-10] MEDS: busPIRone HCL 10 MG TABLET (FP) PO SCH (10:22)
[2023-06-10] MEDS: FERROUS SO4 325 MG TABLET (FP) PO SCH (10:22)
[2023-06-10] MEDS: POLYETHYLENE GLYCOL (HEALTHYLAX) 3350 17 GM PACKET PO SCH (10:23)
[2023-06-10] MEDS: CARVEDILOL 12.5 MG TABLET (FP) PO SCH (10:23)
== END 2023-06-10 11:52 | DRG 291 ==
LOC: JER 16:07 → JERBED 17:30 → J4W 22:25
PROVIDERS: ADMIT Internal Medicine; ATTEND Internal Medicine
DX: I13.0 Hypertensive heart and chronic kidney disease with heart failure and stage 1 through stage 4 chronic kidney disease, or unspecified chronic kidney disease (principal); I50.43 Acute on chronic combined systolic (congestive) and diastolic (congestive) heart failure; J18.9 Pneumonia, unspecified organism; N17.9 Acute kidney failure, unspecified; I31.39 Other pericardial effusion (noninflammatory); E03.9 Hypothyroidism, unspecified; E11.42 Type 2 diabetes mellitus with diabetic polyneuropathy; E11.51 Type 2 diabetes mellitus with diabetic peripheral angiopathy without gangrene; E11.22 Type 2 diabetes mellitus with diabetic chronic kidney disease; N18.9 Chronic kidney disease, unspecified; F03.90 Unspecified dementia, unspecified severity, without behavioral disturbance, psychotic disturbance, mood disturbance, and anxiety; K21.9 Gastro-esophageal reflux disease without esophagitis; D64.9 Anemia, unspecified; E78.5 Hyperlipidemia, unspecified; I25.10 Atherosclerotic heart disease of native coronary artery without angina pectoris; I48.0 Paroxysmal atrial fibrillation; Z95.5 Presence of coronary angioplasty implant and graft
CPT/HCPCS: 0241U-QW; 36415; 71045-TC-FY; 71250-TC; 74230-TC-FY; 80048; 80053; 81003; 82803; 82962; 83036; 83605; 83735; 83880; 84100; 84443; 84484; 85025; 85027; 85610; 85730; 86850; 86900; 86901; 87040; 87081; 87086; 87186; 87635; 92611-GN; 93005; 93010; 94640; 94761; 97116-GP; 99285-25

== ENCOUNTER 2024-11-02 21:21 | Inpatient (IN) | payer OTHER ==
[2024-11-02 21:49] VITALS: BMI 30.7
[2024-11-02 22:52] LABS: BASO % 0.4 % (0-2.0); EOS % 2.8 % (0-4.5); HEMATOCRIT 27.5 % (32.4-45.2); HEMOGLOBIN 8.8 GM/dL (10.7-15.3); LYMPH % 18.6 % (8-40); MCH 27.2 pg (25.7-33.7); MCHC 32.1 g/dl (32.0-36.0); MEAN CELL VOLUME 84.7 fl (80-96); MEAN PLT VOLUME 6.4 fl (7.5-11.1); MONO % 8.9 % (3.8-10.2); NEUT % 69.3 % (42.8-82.8); PLATELET COUNT 260 10^3/uL (134-434); RBC 3.25 M/mm3 (3.60-5.2); RDW 17.8 % (11.6-15.6); WHITE BLOOD COUNT 4.9 K/mm3 (4.0-10.0)
[2024-11-02 22:54] LABS: VENOUS BASE EXCESS 1.9 mmol/L (-2-2); VENOUS O2 SATURATION 77.6 % (70-80); VENOUS PCO2 42.6 mmHg (38-52); VENOUS PH 7.415 (7.310-7.410)
[2024-11-02 23:01] LABS: INR 1.47 (0.83-1.09); PROTHROMBIN TIME (PATIENT) 16.7 SEC (9.7-13.0)
[2024-11-02 23:04] LABS: ACTIVATED PTT 40.6 SECONDS (25.2-36.5)
[2024-11-02 23:15] LABS: POTASSIUM 4.2 mmol/L (3.5-5.1)
[2024-11-02 23:16] LABS: CALCIUM 7.9 mg/dL (8.5-10.1)
[2024-11-02 23:17] LABS: ALBUMIN 2.7 g/dl (3.4-5.0); BLOOD UREA NITROGEN 41.8 mg/dL (7-18); MAGNESIUM 2.3 mg/dL (1.8-2.4)
[2024-11-02 23:20] LABS: CREATININE 2.4 mg/dL (0.55-1.3)
[2024-11-02 23:22] LABS: BILIRUBIN,TOTAL 0.4 mg/dL (0.2-1); TOT PROT 7.1 g/dl (6.4-8.2)
[2024-11-02 23:25] LABS: N-TERMINAL BNP 8794.4 pg/ml (5-450)
[2024-11-03] MEDS ORDERED: FUROSEMIDE 40 MG/4 ML INJECTABLE VIAL ONE (01:35)
[2024-11-03] MEDS: FUROSEMIDE 40 MG/4 ML INJECTABLE VIAL IVPUSH ONE (01:48)
[2024-11-03 06:10] LABS: BASO % 0.4 % (0-2.0); HEMATOCRIT 27.8 % (32.4-45.2); HEMOGLOBIN 8.8 GM/dL (10.7-15.3); LYMPH % 18.6 % (8-40); MCH 26.9 pg (25.7-33.7); MCHC 31.7 g/dl (32.0-36.0); MEAN CELL VOLUME 84.9 fl (80-96); MEAN PLT VOLUME 6.5 fl (7.5-11.1); MONO % 8.9 % (3.8-10.2); NEUT % 69.1 % (42.8-82.8); PLATELET COUNT 264 10^3/uL (134-434); RBC 3.28 M/mm3 (3.60-5.2); RDW 17.8 % (11.6-15.6); WHITE BLOOD COUNT 4.8 K/mm3 (4.0-10.0)
[2024-11-03 06:27] LABS: POTASSIUM 4.1 mmol/L (3.5-5.1)
[2024-11-03 06:32] LABS: BLOOD UREA NITROGEN 37.3 mg/dL (7-18)
[2024-11-03 06:34] LABS: CREATININE 2.2 mg/dL (0.55-1.3)
[2024-11-03] MEDS: ISOSORBIDE DINITRATE 20 MG TABLET PO SCH (09:09)
[2024-11-03] MEDS: SIMETHICONE 80 MG TAB.CHEW (FP) PO SCH (09:10)
[2024-11-03] MEDS: APIXABAN 2.5 MG TABLET PO SCH (10:10)
[2024-11-03] MEDS: hydrALAZINE HCL 10 MG TABLET PO SCH (10:10)
[2024-11-03] MEDS: CARVEDILOL 25 MG TABLET (FP) PO SCH (10:10)
[2024-11-03] MEDS: busPIRone HCL 5 MG TABLET PO SCH (10:10)
[2024-11-03] MEDS ORDERED: busPIRone HCL 5 MG TABLET ONE (10:13)
[2024-11-03] MEDS ORDERED: APIXABAN 2.5 MG TABLET ONE (10:13)
[2024-11-03] MEDS ORDERED: SIMETHICONE 80 MG TAB.CHEW (FP) ONE ×4 (10:14→18:28)
[2024-11-03] MEDS ORDERED: hydrALAZINE HCL 10 MG TABLET ONE ×3 (10:14→18:28)
[2024-11-03] MEDS ORDERED: CARVEDILOL 25 MG TABLET (FP) ONE (10:14)
[2024-11-03] MEDS: BUDESONIDE/FORMETEROL FUMARATE 80/4.5 mcg INHALER IH SCH (12:11)
[2024-11-03] MEDS: glipiZIDE 10 MG TABLET (FP) PO SCH (12:11)
[2024-11-03] MEDS: INSULIN ASPART SLIDING SCALE (NOVOLOG) 1 VIAL SQ SCH (12:12)
[2024-11-03] MEDS: TORSEMIDE 20 MG TABLET (FP) PO SCH (14:52)
[2024-11-03] MEDS ORDERED: ALBUTEROL SO4 2.5/IPRATROPIUM 0.5 INH SOL 3 ML VIAL.NEB. NEB PRN (17:39)
[2024-11-03] MEDS ORDERED: MELATONIN 5 MG TABLETS PO PRN (22:00)
[2024-11-03] MEDS: ATORVASTATIN CA 40 MG TABLET (FP) PO SCH (22:48)
[2024-11-03] MEDS: traZODone HCL 50 MG TABLET (FP) PO SCH (22:48)
[2024-11-03] MEDS: amLODIPine BESYLATE 10 MG TABLET (FP) PO SCH (22:49)
[2024-11-03] MEDS: MIRTAZAPINE 15 MG TABLET (FP) PO SCH (22:49)
[2024-11-04] MEDS: LEVOTHYROXINE 112 MCG, LEVOTHYROXINE 25 MCG PO SCH (06:52)
[2024-11-04] MEDS: glipiZIDE 5 MG TABLET (FP) PO SCH (06:52)
[2024-11-04] MEDS ORDERED: LEVOTHYROXINE NA 25 MCG TABLET (FP) PO SCH (07:00)
[2024-11-04 08:19] LABS: POTASSIUM 4.1 mmol/L (3.5-5.1)
[2024-11-04 08:28] LABS: CALCIUM 8.1 mg/dL (8.5-10.1)
[2024-11-04 08:29] LABS: BLOOD UREA NITROGEN 39.2 mg/dL (7-18)
[2024-11-04 08:32] LABS: CREATININE 1.9 mg/dL (0.55-1.3)
[2024-11-04] MEDS: FLUTICASONE PROP 0.05% 16 GM NASAL SPRAY NS SCH (18:08)
[2024-11-05 07:46] LABS: BASO % 0.4 % (0-2.0); EOS % 2.7 % (0-4.5); HEMATOCRIT 29.4 % (32.4-45.2); HEMOGLOBIN 9.6 GM/dL (10.7-15.3); LYMPH % 18.4 % (8-40); MCH 27.4 pg (25.7-33.7); MCHC 32.6 g/dl (32.0-36.0); MEAN CELL VOLUME 84.1 fl (80-96); MEAN PLT VOLUME 6.6 fl (7.5-11.1); MONO % 7.4 % (3.8-10.2); NEUT % 71.1 % (42.8-82.8); PLATELET COUNT 276 10^3/uL (134-434); RDW 17.4 % (11.6-15.6); WHITE BLOOD COUNT 5.9 K/mm3 (4.0-10.0)
[2024-11-05 08:02] LABS: POTASSIUM 4.3 mmol/L (3.5-5.1)
[2024-11-05 08:11] LABS: CALCIUM 8.1 mg/dL (8.5-10.1)
[2024-11-05 08:12] LABS: ALBUMIN 2.7 g/dl (3.4-5.0); BLOOD UREA NITROGEN 38.1 mg/dL (7-18)
[2024-11-05 08:15] LABS: CREATININE 1.9 mg/dL (0.55-1.3)
[2024-11-05 08:17] LABS: BILIRUBIN,TOTAL 0.4 mg/dL (0.2-1); TOT PROT 7.3 g/dl (6.4-8.2)
[2024-11-07 08:53] LABS: BASO % 0.8 % (0-2.0); EOS % 1.5 % (0-4.5); HEMATOCRIT 26.9 % (32.4-45.2); HEMOGLOBIN 9.1 GM/dL (10.7-15.3); MCH 28.3 pg (25.7-33.7); MCHC 33.8 g/dl (32.0-36.0); MEAN CELL VOLUME 83.5 fl (80-96); MEAN PLT VOLUME 6.8 fl (7.5-11.1); MONO % 6.5 % (3.8-10.2); NEUT % 76.2 % (42.8-82.8); PLATELET COUNT 253 10^3/uL (134-434); RBC 3.23 M/mm3 (3.60-5.2); WHITE BLOOD COUNT 7.3 K/mm3 (4.0-10.0)
[2024-11-07 09:11] LABS: POTASSIUM 3.9 mmol/L (3.5-5.1)
[2024-11-07 09:38] LABS: ALBUMIN 2.5 g/dl (3.4-5.0)
[2024-11-07 09:39] LABS: BLOOD UREA NITROGEN 39.2 mg/dL (7-18)
[2024-11-07 09:41] LABS: CREATININE 1.7 mg/dL (0.55-1.3)
[2024-11-07 09:44] LABS: BILIRUBIN,TOTAL 0.5 mg/dL (0.2-1)
[2024-11-08 09:29] VITALS: RESP 17; TEMP 98.4
[2024-11-08 15:19] VITALS: BP 136/55; PULSE 60
== END 2024-11-08 15:01 | DRG 291 ==
LOC: JER 21:21 → JERBED 11-03 01:50 → J4W 11-03 21:18
PROVIDERS: ADMIT Internal Medicine; ATTEND Internal Medicine
DX: I13.0 Hypertensive heart and chronic kidney disease with heart failure and stage 1 through stage 4 chronic kidney disease, or unspecified chronic kidney disease (principal); I50.43 Acute on chronic combined systolic (congestive) and diastolic (congestive) heart failure; N17.9 Acute kidney failure, unspecified; E03.9 Hypothyroidism, unspecified; E78.5 Hyperlipidemia, unspecified; J44.9 Chronic obstructive pulmonary disease, unspecified; I25.10 Atherosclerotic heart disease of native coronary artery without angina pectoris; I48.91 Unspecified atrial fibrillation; E11.22 Type 2 diabetes mellitus with diabetic chronic kidney disease; N18.9 Chronic kidney disease, unspecified; I71.21 Aneurysm of the ascending aorta, without rupture; E11.40 Type 2 diabetes mellitus with diabetic neuropathy, unspecified; F03.90 Unspecified dementia, unspecified severity, without behavioral disturbance, psychotic disturbance, mood disturbance, and anxiety; F41.8 Other specified anxiety disorders; K21.9 Gastro-esophageal reflux disease without esophagitis; K57.90 Diverticulosis of intestine, part unspecified, without perforation or abscess without bleeding; Z86.718 Personal history of other venous thrombosis and embolism; Z95.5 Presence of coronary angioplasty implant and graft
CPT/HCPCS: 0241U-QW; 36415; 71045-TC-FY; 71250-TC; 80048; 80053; 82803; 82962; 83735; 83880; 84439; 84443; 84484; 85025; 85610; 85730; 86850; 86900; 86901; 93005; 93010; 93306-TC; 97162-GP; 99285-25

== ENCOUNTER 2024-11-15 05:44 | Emergency (ER) | payer OTHER ==
[2024-11-15 06:29] VITALS: BMI 33.8
[2024-11-15] MEDS ORDERED: FUROSEMIDE 40 MG/4 ML INJECTABLE VIAL ONE (09:17)
[2024-11-15 09:20] LABS: BASO % 0.7 % (0-2.0); EOS % 2.6 % (0-4.5); HEMATOCRIT 28.3 % (32.4-45.2); HEMOGLOBIN 9.2 GM/dL (10.7-15.3); LYMPH % 19.1 % (8-40); MCH 26.5 pg (25.7-33.7); MCHC 32.3 g/dl (32.0-36.0); MEAN PLT VOLUME 6.6 fl (7.5-11.1); MONO % 7.3 % (3.8-10.2); NEUT % 70.3 % (42.8-82.8); PLATELET COUNT 334 10^3/uL (134-434); RBC 3.46 M/mm3 (3.60-5.2); RDW 17.9 % (11.6-15.6); WHITE BLOOD COUNT 5.5 K/mm3 (4.0-10.0)
[2024-11-15 09:27] LABS: INR 1.48 (0.83-1.09); PROTHROMBIN TIME (PATIENT) 16.8 SEC (9.7-13.0)
[2024-11-15] MEDS: FUROSEMIDE 40 MG/4 ML INJECTABLE VIAL IVPUSH ONE (09:27)
[2024-11-15 09:30] LABS: ACTIVATED PTT 42.7 SECONDS (25.2-36.5)
[2024-11-15 10:01] LABS: POTASSIUM 3.9 mmol/L (3.5-5.1)
[2024-11-15 10:07] LABS: ALBUMIN 2.8 g/dl (3.4-5.0); CALCIUM 8.5 mg/dL (8.5-10.1); CREATININE 1.6 mg/dL (0.55-1.3)
[2024-11-15 10:11] LABS: BILIRUBIN,TOTAL 0.6 mg/dL (0.2-1); N-TERMINAL BNP 18642.1 pg/ml (5-450); TOT PROT 8.1 g/dl (6.4-8.2)
[2024-11-15] MEDS ORDERED: LABETALOL HCL 20 MG/4 ML VIAL ONE (10:22)
[2024-11-15] MEDS: LABETALOL HCL 20 MG/4 ML VIAL IVPUSH ONE (10:33)
[2024-11-15 10:45] VITALS: RESP 17
[2024-11-15 11:02] LABS: INR 1.36 (0.83-1.09); PROTHROMBIN TIME (PATIENT) 15.5 SEC (9.7-13.0)
[2024-11-15 11:16] LABS: ACTIVATED PTT 43.1 SECONDS (25.2-36.5)
[2024-11-15] MEDS: ESMOLOL 2500 MG/250 ML 2,500,000 MCG/250 ML INFUS.BAG IVPB SCH (11:20)
[2024-11-15 11:48] VITALS: BP 173/72
[2024-11-15 11:58] VITALS: PULSE 64; TEMP 98.1
== END 2024-11-15 11:35 | disposition short-term general hospital (02) ==
LOC: JER 05:44
PROC: 3E033GC Introduction of Other Therapeutic Substance into Peripheral Vein, Percutaneous Approach (ICD-10-PCS; principal; 2024-11-15)
PROC: 3E033GC Introduction of Other Therapeutic Substance into Peripheral Vein, Percutaneous Approach (ICD-10-PCS; 2024-11-15)
DX: I71.011 Dissection of aortic arch (principal); R10.13 Epigastric pain; R06.02 Shortness of breath; Z20.822 Contact with and (suspected) exposure to COVID-19
CPT/HCPCS: 0241U-QW; 36415; 71045-TC-FY; 71275-TC; 74174-TC; 80053; 83605; 83690; 83735; 83880; 84484; 85025; 85610; 85730; 86850; 86900; 86901; 93005; 93010; 99291

== ENCOUNTER 2024-12-09 18:11 | Emergency (ER) | payer OTHER ==
[2024-12-09 18:33] VITALS: PULSE 73; RESP 19; TEMP 97.5; BMI 28.3
[2024-12-09 20:05] LABS: HEMOGLOBIN 9.6 G/dL (10.7-15.3); MCH 26.3 pg (25.7-33.7); MCHC 31.9 g/dl (32.0-36.0); MEAN CELL VOLUME 82.4 fl (80-96); MEAN PLT VOLUME 8.3 fl (7.5-11.1); PLATELET COUNT 207.4 10^3/uL (134-434); RBC 3.64 10^6/uL (3.60-5.2); RDW 18.4 % (11.6-15.6); WHITE BLOOD COUNT 6.9 10^3/uL (4.0-10.8)
[2024-12-09 20:10] LABS: ALBUMIN 3.3 g/dl (3.4-5.0); ALK PHOS 81 U/L (45-117); ANION GAP 8 mmol/L (4-13); BILIRUBIN,TOTAL 0.5 mg/dl (0.2-1); CALCIUM 8.1 mg/dl (8.5-10.1); CHLORIDE 101 mmol/L (98-107); CO2 27 mmol/L (21-32); CREATININE 1.8 mg/dl (0.6-1.3); GLUCOSE,RANDOM 176 mg/dl (74-106); POTASSIUM 4.1 mmol/L (3.5-5.1); SGOT/AST 12 U/L (15-37); SGPT/ALT 8 U/L (7-52); SODIUM 136 mmol/L (136-145); TOT PROT 7.6 g/dl (6.4-8.2)
[2024-12-09 20:46] LABS: ANISOCYTOSIS 1+; PLATELET ESTIMATE ADEQUATE
[2024-12-09] MEDS: CARVEDILOL 12.5 MG TABLET (FP) PO ONE (21:22)
[2024-12-09] MEDS: hydrALAZINE HCL 10 MG TABLET PO ONE (21:22)
[2024-12-09 21:32] VITALS: BP 177/58
== END 2024-12-09 22:09 ==
LOC: FER 18:11
DX: R04.0 Epistaxis (principal)
CPT/HCPCS: 36415; 71045-TC-FY; 80053; 85027; 99284-25